=== PATIENT | female | born 1980 | race Caucasian/White ===

== ENCOUNTER 2023-03-03 10:20 | Inpatient (IN) | payer OTHER ==
--- OUTSIDE RECORDS SUMMARY | 2023-03-03 10:30 | XMS REPORT | Continuity of Care Document ---
:1980 Author Organization [facility] t Address [address] [place] [address] Care Team Providers Name Role Phone Tucker Pandey Primary Care Physician JEMIMA LUDWIG Attending Clinician Unavailable ANDREW GELLER Attending Clinician Unavailable TUCKER ARAMBULA Attending Clinician Unavailable Tucker Pandey Attending Clinician Shruthi Wise MD Attending Clinician Meme Vanegas MD Attending Clinician MEME VANEGAS Attending Clinician Unavailable José Manuel Hendrickson MD Attending Clinician Doctor Unassigned, Brooten Attending Clinician Unavailable Emilie GUADALUPE, Chuck Attending Clinician Lovely Hodgson RN Attending Clinician YE HU Attending Clinician Unavailable Shilpa Banerjee Attending Clinician Bigg Dodd DO Attending Clinician Chris Pierre MD Attending Clinician Fritz GUADALUPE, Ye Attending Clinician She GUADALUPE, Tati Attending Clinician OCHOA BRADFORD Attending Clinician Unavailable DOROTA SAWYER Attending Clinician Unavailable Dawson GIFT WRAPPER, Cece Weber Attending Clinician Unavailable Lab, Ang - Db Attending Clinician Unavailable Nam Duncan MD Attending Clinician Karoline Tariq RN Attending Clinician Unavailable CANDACE WALSH Attending Clinician Unavailable Dee GUADALUPE, Gary Machado Attending Clinician Candace Walsh DO Attending Clinician Panfilo Russ MD Attending Clinician Ketty Beltran Attending Clinician Kiel Almanzar MD Attending Clinician [phone] KIEL ALMANZAR Attending Clinician Unavailable Maria De Jesus BURDENSWMichelle Attending Clinician Unavailable JYOTI FRAZIER Attending Clinician Unavailable Andrew Geller DO Attending Clinician JOSÉ MANUEL HENDRICKSON Attending Clinician Unavailable Jemima Ludwig MD Attending Clinician Vls-Lab Attending Clinician Unavailable Sarah Santacruz MD Attending Clinician Unavailable CHYNA RAMIRES Attending Clinician Unavailable Chyna Ramires MD Attending Clinician SHERIE MAY Attending Clinician Unavailable Rohit Pastor MD Attending Clinician ROHIT PASTOR Attending Clinician Unavailable Shital Naranjo Attending Clinician Ashish Butts MD Attending Clinician Shira Woods RN Attending Clinician Unavailable [facility] Attending Clinician Unavailable Estelle Rubio MD Attending Clinician ESTELLE RUBIO Attending Clinician Unavailable JEMIMA LUDWIG Admitting Clinician Unavailable ANDREW GELLER Admitting Clinician Unavailable PERSON, CHRIS Admitting Clinician Unavailable Person Chris GUADALUPE Admitting Clinician PANFILO RUSS Admitting Clinician Unavailable Panfilo Russ MD Admitting Clinician KIEL ALMANZAR Admitting Clinician Unavailable Jemima Ludwig MD Admitting Clinician Ashish Butts MD Admitting Clinician Payers Payer Name Policy Type Policy Number Effective Date Expiration Date Jeannette [employer] [id number] 2020 HEALTH 00:00:00 [place]ICAID OF [place] [id number] 2017 00:00:00 Problems Condition Condition Condition Status Onset Resolution Last Treating Co mments Source Name Details Category Date Date Treatment Clinician Date Hematemesi Hematemesi Disease Active U nivers s s 3-19 ity of 00:00: [place] 00 Medical Branch Abdominal Abdominal Disease Active Overview: Univers pain, pain, 3-19 Formattin ity of unspecifie unspecifie 00:00: g of this [place] d d 00 note Medical abdominal abdominal might be Br anch location location different from the original. Added automatic ally from request for surgery [id number] Anxiety Anxiety Disease Active Univers 2-17 ity of 00:00: [place] 00 Medical Branch Excoriatio Excoriatio Disease Active U eulalioers n n 2-17 ity of (skin-pick [place] ing[place] 00 Medical disorder disorder Branch Acute Acute Disease Active Univers hypoxemic hypoxemic 7-18 ity of respirator respirator [place] y failure y failure 00 Medi wanda due to due to Branch COVID-19 COVID-19 Abdominal Abdominal Disease Active Overview: Univers pain, pain, 7- Formattin ity of epigastric epigastric 00:00: g of this [place] 00 note Medical might be Branch different from the original. Added automatic ally from request for surgery [id number] Nausea and Nausea and Disease Active Overview : Univers vomiting, vomiting, 7- Formattin i ty of intractabi intractabi 00:00: g of this [place] lity of lity of 00 note Medical vomiting vomiting might be Bran ch not not different specified, specified, from the unspecifie unspecifie original. d vomiting d vomiting Added type type automatic ally from request for surgery [id number] History of History of Disease Active Overview : Univers bleeding bleeding 7-28 Formattin ity of peptic peptic 00:00: g of this [place] ulcer ulcer 00 note Medical might be Branch different from the original. Added automatic ally from request for surgery [id number] Duodenal Duodenal Disease Active Overview: Un evon ulcer ulcer 9-10 Formattin ity of 00:00: g of this [place] 00 note Medical might be Branch different from the original. Added automatic ally from request for surgery [id number] Upper GI Upper GI Disease Active Unive rs bleed bleed 6-07 ity of 00:00: [place] 00 Medical Branch Acute Acute Disease Active Univers upper GI upper GI 6-07 ity of bleed bleed 00:00: [place] 00 Medical Branch Allergies, Adverse Reactions, Alerts Allergy Allergy Status Severity Reaction(s) Onset Inactive Treating Comm ents Source Name Type Date Date Clinician TYLENOL- DRUG Active Anxiety 2021-10 Univers CODEINE 0-14 ity of #2 00:00: [place] 00 Medical Branch Tylenol- Propensi Active Rash 2021-10 Univer s Codeine ty to 0-14 ity of #2 adverse 00:00: [place] reaction 00 Medical s Branch NO KNOWN Drug Active Univers ALLERGIE Class ity of S [place] [facility] Social History Social Habit Start Date Stop Date Quantity Comments Source History SDOH Social Unive rsity of [facility] Med ical Together Branch History SDOH Social Unive rsity of [facility] Medical Branch History SDOH Social Unive rsity of [facility] Medical Membership Branch History SDNV Social Unive rsity of [facility] Medical Meetings Branch History of tobacco Cigarette Smoker University of use [place] [facility] Alcohol intake 2023-01-16 2023-01-16 Lifetime University of 00:00:00 00:00:00 non-drinker [place] Medical (finding) Branch History SDOH 2022-12-31 2022-12-31 3 University o f Alcohol Frequency 00:00:00 00:00:00 [place] M edical Branch History SDOH 2022-12-312022-12-31 1 University o f Alcohol Std Drinks 00:00:00 00:00:00 [place] [facility] History SDOH 2022-12-31 2022-12-31 1 University o f Alcohol Binge 00:00:00 00:00:00 [place] Medic al Branch History SDOH Social 2022-12-31 2022-12-31 5 Unive rsity of Connections Phone 00:00:00 00:00:00 [facility] [place] [facility] edical Branch History SDOH Social 2022-12-31 2022-12-31 8 Unive rsity of Connections Living 00:00:00 00:00:00 [place] [facility] History SDOH 2022-12-31 2022-12-31 1 University o f Physical Activity 00:00:00 [facility]00[facility] History SDNV 2022-12-31 2022-12-31 3 University o f Physical Activity 00:00:00 00:00[facility]00 [facility] History SDOH 2022-12-31 2022-12-31 5 University o f Financial 00:00:00 00:00:00 [place] [facility] History SDOH Food 2022-12-31 2022-12-31 1 Univers ity of Worry 00:00:00 00:00:00 [place] [facility] History SDOH Food 2022-12-31 2022-12-31 1 Univers ity of Scarcity 00:00:00 00:00:00 [place] [facility] History SDOH 2022-12-31 2022-12-31 2 University o f Transport Med 00:00:00 00:00:00 [place] Medic al Branch History SDNV 2022-12-31 2022-12-31 2 University o f Transport Non-Med 00:00:00 00:00:00 [facility] Branch Exposure to 2022-12-20 2022-12-30 Not sure University of SARS-CoV-2 (event) 00:00:00 17:15:00 [facility] [place] [facility] Cigarettes smoked 2022-12-30 2022-12-30 Univers ity of current (pack per 00:00:00 00:00:00 [facility] day) - Reported Branch Cigarette 2022-12-30 2022-12-30 University of pack-years 00:00:00 00:00:00 [facility] [place] [facility] Tobacco Comment 2022-12-30 2022-12-30 Smokes a pack a Univ ersity of 00:00:00 00:00:00 day per pt, [facility] [place] [facility] Tobacco use and 2022-12-30 2022-12-30 Smokeless Universit y of exposure 00:00:00 00:00:00 tobacco non-user [facility] Sex Assigned At [birth year] Universit y of 00:00:00 00:00:00 [facility] [place] [facility] Smoking Status Start Date Stop Date Source Smokes tobacco daily 2022-12-30 00:00:00 Univers ity [facility] Medications Ordered Filled Start Stop Current Ordering Indication Dosage Frequency Signature Comments Components Source Medication Medication Date Date Medication? Clinician (SIG) Name Name docusate Yes [id number] 100mg Take 1 Un evon (COLACE) 5-19 capsule by ity o f 100 mg 00:00: mouth in [place] capsule 00 the Medical morning. Branch docusate Yes [id number] 100mg Take 1 Un evon (COLACE) 5-17 capsule by ity o f 100 mg 00:00: mouth in [place] capsule 00 the Medical morning. Branch docusate 0 3- No [id number] 100mg Take 1 U nivers (COLACE) 5-17 05-19 capsule by ity of 100 mg 00:00: 00:00 mouth in [place] capsule 00 :00 the Medical morning. Branch ondansetron Yes [id number] 4mg Take 1 Univers 4 mg tablet 4-12 tablet by ity of 00:00: mouth [place] 00 every 12 Medical (twelve) Branch hours. ondansetron 2022-0 Yes [id number] 4mg Take 1 Univers 4 mg tablet 4-12 tablet by ity of 00:00: mouth [place] 00 every 12 Medical (twelve) Branch hours. ondansetron 2022-0 Yes [id number] 4mg Take 1 Univers 4 mg tablet 4-12 tablet by ity of 00:00: mouth [place] 00 every 12 Medical (twelve) Branch hours. ketoconazol Yes [id number] Apply to Univers e 2 % 4-05 area(s) ity of shampoo 00:00: once daily [place] 00 as needed Medical for Branch Itching. triamcinolo Yes [id number] Apply to Univers ne 4-05 area(s) 2 ity of acetonide 00:00: (two) [place] 0.1 % cream 00 times Medical daily. Branch ketoconazol 2023-0 Yes [id number] Apply to Univers e 2 % 4-05 area(s) ity of shampoo 00:00: once daily [place] 00 as needed Medical for Branch Itching. triamcinolo 2023-0 Yes [id number] Apply to Univers ne 4-05 area(s) 2 ity of acetonide 00:00: (two) [place] 0.1 % cream 00 times Medical daily. Branch ketoconazol 2023-0 Yes [id number] Apply to Univers e 2 % 4-05 area(s) ity of shampoo 00:00: once [place] 00 as needed Medical for Branch Itching. triamcinolo 2023-0 Yes [id number] Apply to Univers ne 4-05 area(s) 2 ity of acetonide 00:00: (two) [place] 0.1 % cream 00 times Medical daily. Branch ketoconazol 3-0 Yes [id number] Apply to Univers e 2 % 4-05 area(s) ity of shampoo 00:00: once daily [place] 00 as needed Medical for Branch Itching. triamcinolo 2023-0 Yes [id number] Apply to Univers ne 4-05 area(s) 2 ity of acetonide 00:00: (two) [place] 0.1 % cream 00 times Medical daily. Branch ketoconazol 2023-0 Yes [id number] Apply to Univers e 2 % 4-05 area(s) ity of shampoo 00:00: once daily [place] 00 as needed Medical for Branch Itching. triamcinolo 2023-0 Yes [id number] Apply to Univers ne 4-05 area(s) 2 ity of acetonide 00:00: (two) [place] 0.1 % cream 00 times Medical daily. Branch ketoconazol 2023-0 Yes [id number] Apply to Univers e 2 % 4-05 area(s) ity of shampoo 00:00: once daily [place] 00 as needed Medical for Branch Itching. triamcinolo 2023-0 Yes [id number] Apply to Univers ne 4-05 area(s) 2 ity of acetonide 00:00: (two) [place] 0.1 % cream 00 times Medical daily. Branch ketoconazol 2023-0 Yes [id number] Apply to Univers e 2 % 4-05 area(s) ity of shampoo 00:00: once daily [place] 00 as needed Medical for Branch Itching. triamcinolo 2023-0 Yes [id number] Apply to Univers ne 4-05 area(s) 2 ity of acetonide 00:00: (two) [place] 0.1 % cream 00 times Medical daily. Branch ketoconazol 2023-0 Yes [id number] Apply to Univers e 2 % 4-05 area(s) ity of shampoo 00:00: once daily [place] 00 as needed Medical for Branch Itching. triamcinolo 2023-0 Yes [id number] Apply to Univers ne 4-05 area(s) 2 ity of acetonide 00:00: (two) [place] 0.1 % cream 00 times Medical daily. Branch ondansetron 2023-0 Yes [id number] 4mg Take 1 Univers 4 mg tablet 3-31 tablet by ity of 00:00: mouth [place] 00 every 12 Medical (twelve) Branch hours. ondansetron 2023-0 Yes [id number] 4mg Take 1 Univers 4 mg tablet 3-31 tablet by ity of 00:00: mouth [place] 00 every 12 Medical (twelve) Branch hours. ondansetron 2023-0 Yes [id number] 4mg Take 1 Univers 4 mg tablet 3-31 tablet by ity of 00:00: mouth [place] 00 every 12 Medical (twelve) Branch hours. ondansetron 2023-0 Yes [id number] 4mg Take 1 Univers 4 mg tablet 3-31 tablet by ity of 00:00: mouth [place] 00 every 12 Medical (twelve) Branch hours. ondansetron 2023-0 Yes [id number] 4mg Take 1 Univers 4 mg tablet 3-31 tablet by ity of 00:00: mouth [place] 00 every 12 Medical (twelve) Branch hours. ondansetron 2023-0 2023- No [id number] 4mg Take 1 Univers 4 mg tablet 3-31 04-07 tablet by it y of 00:00: 00:00 mouth [place] 00 :00 every 12 Medical (twelve) Branch hours. ondansetron 2023-0 2022- No [id number] 4mg Take 1 Univers 4 mg tablet 01-1107 tablet by it y of 00:00: 00:00 mouth [place] 00 :00 every 12 Medical (twelve) Branch hours. clindamycin 2022-0 Yes Topical, Un evon (CLEOCIN T) 01-03 BID, First it y of 1 % topical 01:00: dose on [place] solution Sat01/02/23 at Branch 1999, Until Discontinu ed, Routine fluocinolon 2022-0 Yes Topical, Un evon e (SYNALAR) 01-03 BID, First it y of 0.01 % 01:00: dose on [place] solution Sat Medical 01/02/23 at Branch 1999, Until Discontinu ed, Routine traMADoL 0 Yes 50mg 50 mg, Univers (ULTRAM) 01-02 Oral, ity of tablet 50 18:13: Q6HPRN, [place] mg 01 Starting Medical on Sat01/02/23 at 1313, Until Discontinu ed, Routine, Pain (scale 4-6) aspirin/steve 2022-0 2022- No Take by Un evon icylamide/c 01-02 mouth 2 ity of affeine (BC 15:08: 00:00 (two) [place] HEADACHE 28 :00 times Medical POWDER daily. Branch ORAL) polyethylen 0 Yes 17g 17 g, Unive rs e glycol 01-02 Oral, ity of 3350 powder 14:00: DAILY, [place] 17 g 00 First dose Medical on Sat01/02/23 at 0900, Until Discontinu ed, Routine polyethylen 2022-0 Yes 17g 17 g, Unive rs e glycol 01-02 Oral, ity of 3350 powder 14:00: DAILY, [place] 17 g 00 First dose Medical on Sat01/02/23 at 0900, Until Discontinu ed, Routine alum-mag 2022-0 Yes 30mL 30 mL, Univers hydroxide-s 01-02 Oral, BID, it y of imeth 13:15: First dose [place] (MAALOX 00 (after Medical PLUS / last Branch MAG-AL modificati PLUS) on) on Sat 200-200-20 01/02/23 at mg/5 mL 0815, suspension Until 30 mL Discontinu ed, Routine alum-mag 2022-0 Yes 30mL 30 mL, Univers hydroxide-s 01-02 Oral, BID, it y of imeth 13:15: First dose [place] (MAALOX 00 (after Medical PLUS / last Branch MAG-AL modificati PLUS) on) on Sat 200-200-20 01/02/23 at mg/5 mL 0815, suspension Until 30 mL Discontinu ed, Routine KCL 3-0 2023- No 40meq 40 mEq, Univers (KLOR-CON 01-0222 Oral, ity of M20) tablet 13:15: 12:47 ONCE, 1 [place] 40 mEq 00 :00 dose, On Sat Branch 01/02/23 at 0815, Routine aspirin/steve 2022-0 Yes Take by Uni vers icylamide/c 01-02 mouth 2 ity o f affeine (BC 09:16: (two) [place] HEADACHE 18 times Medical POWDER daily. Branch ORAL) alum-mag 0 202- No 30mL 30 mL, Univer s hydroxide-s 01-02-22 Oral, ity of imeth 08:53: 13:10 Q6HPRN, [place] (MAALOX 04 :22 Starting Medical PLUS / on Sat Branch MAG-AL 01/02/23 at PLUS) 0353, 200-200-20 Until Sat mg/5 mL 01/02/23 at suspension 0810, 30 mL Routine, Indigestio n pantoprazol 2022-0 Yes 40mg 40 mg, Univ ers e - Oral, BID, ity of (PROTONIX) 01:00: First dose [place] EC tablet 00 on Sat Medical 40 mg 01/01/23 at Branch 1999, Until Discontinu ed, Routine pantoprazol 3-0 Yes 40mg 40 mg, Univ ers e -22 Oral, BID, ity of (PROTONIX) 01:00: First dose [place] EC tablet 00 on Sat Medical 40 mg 01/01/23 at Branch 1999, Until Discontinu ed, Routine ondansetron 2022-0 Yes [id number] 4mg Take 1 Univers 4 mg tablet 01-02 tablet by ity of 00:00: mouth [place] 00 every 12 Medical (twelve) Branch hours. ondansetron 2023-0 Yes [id number] 4mg Take 1 Univers 4 mg tablet 3-22 tablet by ity of 00:00: mouth [place] 00 every 12 Medical (twelve) Branch hours. pantoprazol 2023-0 Yes [id number] 40mg Take 1 Univers e 40 mg EC 3-22 tablet by ity of tablet 00:00: mouth in [place] 00 the Medical morning Branch and 1 tablet in the evening. ondansetron 2023-0 Yes [id number] 4mg Take 1 Univers 4 mg tablet 3-22 tablet by ity of 00:00: mouth [place] 00 every 12 Medical (twelve) Branch hours. pantoprazol 2023-0 Yes [id number] 40mg Take 1 Univers e 40 mg EC 3-22 tablet by ity of tablet 00:00: mouth in [place] 00 the Medical morning Branch and 1 tablet in the evening. ondansetron 2023-0 Yes [id number] 4mg Take 1 Univers 4 mg tablet 3-22 tablet by ity of 00:00: mouth [place] 00 every 12 Medical (twelve) Branch hours. pantoprazol 2023-0 Yes [id number] 40mg Take 1 Univers e 40 mg EC 3-22 tablet by ity of tablet 00:00: mouth in [place] 00 the Medical morning Branch and 1 tablet in the evening. ondansetron 2023-0 Yes [id number] 4mg Take 1 Univers 4 mg tablet 3-22 tablet by ity of 00:00: mouth [place] 00 every 12 Medical (twelve) Branch hours. pantoprazol 2023-0 Yes [id number] 40mg Take 1 Univers e 40 mg EC 3-22 tablet by ity of tablet 00:00: mouth in [place] 00 the Medical morning Branch and 1 tablet in the evening. pantoprazol 2023-0 Yes [id number] 40mg Take 1 Univers e 40 mg EC 3-22 tablet by ity of tablet 00:00: mouth in [place] 00 the Medical morning Branch and 1 tablet in the evening. pantoprazol 2023-0 Yes [id number] 40mg Take 1 Univers e 40 mg EC 3-22 tablet by ity of tablet 00:00: mouth in [place] 00 the Medical morning Branch and 1 tablet in the evening. pantoprazol 2023-0 Yes [id number] 40mg Take 1 Univers e 40 mg EC 3-22 tablet by ity of tablet 00:00: mouth in [place] 00 the Medical morning Branch and 1 tablet in the evening. pantoprazol 2023-0 Yes [id number] 40mg Take 1 Univers e 40 mg EC 3-22 tablet by ity of tablet 00:00: mouth in [place] 00 the Medical morning Branch and 1 tablet in the evening. pantoprazol 2023-0 Yes [id number] 40mg Take 1 Univers e 40 mg EC 3-22 tablet by ity of tablet 00:00: mouth in [place] 00 the Medical morning Branch and 1 tablet in the evening. pantoprazol 2023-0 Yes [id number] 40mg Take 1 Univers e 40 mg EC 3-22 tablet by ity of tablet 00:00: mouth in [place] 00 the Medical morning Branch and 1 tablet in the evening. pantoprazol 2023-0 Yes [id number] 40mg Take 1 Univers e 40 mg EC 3-22 tablet by ity of tablet 00:00: mouth in [place] 00 the Medical morning Branch and 1 tablet in the evening. pantoprazol 2023-0 Yes [id number] 40mg Take 1 Univers e 40 mg EC 3-22 tablet by ity of tablet 00:00: mouth in [place] 00 the Medical morning Branch and 1 tablet in the evening. pantoprazol 3-0 Yes [id number] 40mg Take 1 Univers e 40 mg EC 3-22 tablet by ity of tablet 00:00: mouth in [place] 00 the Medical morning Branch and 1 tablet in the evening. pantoprazol 3-0 Yes [id number] 40mg Take 1 Univers e 40 mg EC 3-22 tablet by ity of tablet 00:00: mouth in [place] 00 the Medical morning Branch and 1 tablet in the evening. pantoprazol 2023-0 Yes [id number] 40mg Take 1 Univers e 40 mg EC 3-22 tablet by ity of tablet 00:00: mouth in [place] 00 the Medical morning Branch and 1 tablet in the evening. pantoprazol 3-0 Yes [id number] 40mg Take 1 Univers e 40 mg EC 3-22 tablet by ity of tablet 00:00: mouth in [place] 00 the Medical morning Branch and 1 tablet in the evening. ondansetron 3-0 2022- No [id number] 4mg Take 1 Univers 4 mg tablet 3-22 03-31 tablet by it y of 00:00: 00:00 mouth [place] 00 :00 every 12 Medical (twelve) Branch hours. ondansetron 2022- No [id number] 4mg Take 1 Univers 4 mg tablet 01-02 tablet by it y of 00:00: 00:00 mouth [place] 00 :00 every 12 Medical (twelve) Branch hours. ondansetron 2022- No [id number] 4mg Take 1 Univers 4 mg tablet 01-02 tablet by it y of 00:00: 00:00 mouth [place] 00 :00 every 12 Medical (twelve) Branch hours. morpHINE (2 2022- No 4mg 4 mg, Slow Univers mg/mL) 01-01 IV Push, ity of injection 4 18:51: 12:30 Q4HPRN, [place] mg 08 :00 Starting Medical on Sat Branch 01/01/23 at 1351, Until Sat01/02/23 at 0730, Routine, Breakthrou gh pain calcium 2022- No 2g 2 g, IV Univer s gluconate 2 01-01 Infusion, it y of g in NaCl 11:45: 12:03 at 200 [place] 100 mL 00 :00 mL/hr Medical (ISO-OSM) Administer Bran ch RTU IV over 30 infusion 2 Minutes, g ONCE, 1 dose, On Sat01/01/23 at 0645, Routine acetaminoph 2022- No 743mg 743 mg, IV Univers en ADULT 01-01 Infusion, ity o f ([facility]) 03:00: 19:31 at 297.2 [place] injection 00 :00 mL/hr Medical 743 mg Administer Branch over 15 Minutes, Q8H, 3 doses, First dose on Sat12/31/22 at 2200, Last dose on Sat01/01/23 at 1400, Routine
Indicatio n: Non-periop erative Patient&lt ;br>Approv ed by: Per Policy (NPO Status) pantoprazol 2022- No 40mg 40 mg, Uni vers e 01-01 Slow IV ity of (PROTONIX) 01:00: 22:07 Push, [place] injection 00 :32 Q12H, Medical 40 mg First dose Branch on Sat12/31/22 at 2000, Until Discontinu ed nicotine Yes 1{patch 1 Patch, Un evon (NICODERM) 3-20 } Topical, ity o f 7 mg/24 hr 21:00: Administer [place] patch 1 00 over 24 Medical Patch Hours, Branch Q24H, First dose on Sat12/31/22 at 1600, Until Discontinu ed, Routine nicotine 2022-0 Yes 1{patch 1 Patch, Un evon (NICODERM) 3-20 } Topical, ity o f 7 mg/24 hr 21:00: Administer [place] patch 1 00 over 24 Medical Patch Hours, Branch Q24H, First dose on Sat12/31/22 at 1600, Until Discontinu ed, Routine HYDROcodone 2022-0 Yes 1{tbl} 1 tablet, Univers -acetaminop 3-20 Oral, ity of hen (NORCO 16:49: Q6HPRN, [place] 5) 5-325 mg 43 Starting Medi wanda tablet 1 on Sat Branch tablet 12/31/22 at 1149, Until Discontinu ed, Routine, Pain (scale 4-6) HYDROcodone 2022-0 Yes 1{tbl} 1 tablet, Univers -acetaminop 3-20 Oral, ity of hen (NORCO 16:49: Q6HPRN, [place] 5) 5-325 mg 43 Starting Medi wanda tablet 1 on Sat Branch tablet 12/31/22 at 1149, Until Discontinu ed, Routine, Pain (scale 4-6) lactated 2022- No 1000mL at 42 Unive rs ringers IV 12-31-21 mL/hr, ity of infusion 15:30: 22:03 1,000 mL, [place] 1,000 mL 00 :36 IV Medical Infusion, Branch CONTINUOUS , Starting on Sat12/31/22 at 1030, Until Sat01/01/23 at 1703, Routine calcium 2022-2022- No 2g 2 g, IV Univer s gluconate 2 12-31 Infusion, it y of g in NaCl 12:00: 16:25 at 200 [place] 100 mL 00 :00 mL/hr Medical (ISO-OSM) Administer Bran ch RTU IV over 30 infusion 2 Minutes, g ONCE, 1 dose, On Sat12/31/22 at 0700, Routine morpHINE (2 2022-2022- No 4mg 4 mg, Slow Univers mg/mL) 12-31 IV Push, ity of injection 4 11:08: 18:51 Q4HPRN, [place] mg 04 :43 Starting Medical on Sat Branch 12/31/22 at 0608, Until Sat01/01/23 at 1351, Routine, Breakthrou gh pain potassium 2022- No 20mmol 20 mmol, U nivers phosphate 12-31 IV ity of 20 mmol in 07:15: 13:24 Piggyback, [place] NaCl 0.9% 00 :00 ONCE, 1 Medical (NS) 250 mL dose, On Bran ch piggyback Sat12/31/22 at 0215, 250 mL magnesium 2022- No 2g 2 g, IV Univ ers sulfate in 12-31 Piggyback, it y of water 2 07:15: 08:43 Administer [place] gram/50 mL 00 :00 over 60 Medica l (4 %) Minutes, Branch infusion 2 ONCE, 1 g dose, On Sat12/31/22 at 0215, Routine lactated 2022- No 1000mL at 100 Univ ers ringers IV 12-31 mL/hr, ity of infusion 04:15: 15:17 1,000 mL, [place] 1,000 mL 00 :50 IV Medical Infusion, Branch CONTINUOUS , Starting on [place] 12/30/22 at 2315, Until Sat12/31/22 at 1017, Routine morpHINE (2 2022- No 2mg 2 mg, Slow Univers mg/mL) 12-31 IV Push, ity of injection 2 03:59: 11:09 Q4HPRN, [place] mg 50 :30 Starting Medical on [place] Branch 12/30/22 at 2259, Until Sat12/31/22 at 0609, Routine, Breakthrou gh pain acetaminoph 2022- No 749mg 749 mg, IV Univers en ADULT 12-31 Infusion, ity o f (OFIRMEV) 03:59: 19:50 at 299.6 [place] injection 13 :46 mL/hr Medical 749 mg Administer Branch over 15 Minutes, Q8HPRN, Starting on [place] 12/30/22 at 2259, Until Sat12/31/22 at 1450, Routine, Pain (scale 1-3)
In dication: Non-periop erative Patient
Approved by: Per Policy (NPO Status) ondansetron 2022-0 Yes 4mg 4 mg, Slow [facility] (ZOFRAN 3-20 IV Push, ity of (PF)) 03:57: Q6HPRN, [place] injection 4 56 Starting Medi wanda mg on [place] [facility] 12/30/22 at 2257, Until Discontinu ed, Routine, Nausea and Vomiting (N/V) ondansetron 2022-0 Yes 4mg 4 mg, Slow [facility] (ZOFRAN 3-20 IV Push, ity of (PF)) 03:57: Q6HPRN, [place] injection 4 56 Starting Medi wanda mg on [facility] 12/30/22 at 2257, Until Discontinu ed, Routine, Nausea and Vomiting (N/V) FENTanyl PF 2022- No 50ug 50 mcg, Un evon (SUBLIMAZE 12-31 Slow IV ity o f (PF)) 02:36: 02:37 Push, [place] injection 00 :00 ONCE, 1 Medical 50 mcg dose, On Branch [place] 12/30/22 at 2145, Routine iopamidol 2022-2022- No [id number] 100mL 100 mL, Univers (ISOVUE 12-31 Intravenou ity o f 370-500 mL) 02:15: 02:15 s, ONCE, 1 [place] injection 00 :00 dose, On Medica l 100 mL [facility] 12/30/22 at 2115, Routine pantoprazol 2022- No 8mg/h 8 mg/hr U nivers e 12-30 (50 ity of (PROTONIX) 23:45: 04:02 mL/hr), IV [place] 80 mg in 00 :21 Infusion, Medica l NaCl 0.9% CONTINUOUS Bran ch (NS) 500 mL , Starting infusion on [place] 12/30/22 at 1845 pantoprazol 2022-2022- No 80mg 80 mg, IV Univers e 12-30 Push, ity of (PROTONIX) 23:30: 23:32 ONCE, 1 [place] 80 mg in 00 :00 dose, On Medical NaCl 0.9% [place] (NS) 20 mL 12/30/22 at syringe 1830, Administer over 2 Minutes, 20 mL NaCl 0.9% No 1000mL at 999 Uni vers (NS) bolus 12-30-20 mL/hr, ity of infusion 23:15: 01:23 1,000 mL, [place] 1,000 mL 00 :00 IV Medical Infusion, Branch ONCE, 1 dose, On 12/30/22 at 1815, JESSICA ondansetron No 4mg 4 mg, Slow [facility] (ZOFRAN 12-30 IV Push, ity of (PF)) 22:45: 23:07 ONCE, 1 [place] injection 4 00 :00 dose, On Medi wanda mg [place] [facility] 12/30/22 at 1745, JESSICA morpHINE (4 2022- No 4mg 4 mg, Slow [facility] mg/mL) 12-30 IV Push, ity of injection 4 22:45: 23:07 ONCE, 1 [place] mg 00 :[place] dose, On Medical [place] [facility] 12/30/22 at 1745, STAT pantoprazol Yes [id number] 40mg Take 1 [facility] e 40 mg EC 2-24 tablet by ity of tablet 00:00: mouth [place] 00 every Medical morning Branch and evening. pantoprazol Yes [id number] 40mg Take 1 [facility] e 40 mg EC 2-24 tablet by ity of tablet 00:00: mouth [place] 00 every Medical morning Branch and evening. pantoprazol 2022- No [id number] 40mg Take 1 [facility] e 40 mg EC 2-24 -22 tablet by ity of tablet 00:00: 00:00 mouth [place] 00 :00 every Medical morning Branch and evening. doxepin 50 Yes [id number] 50mg Take 1 [facility] mg capsule 2-17 capsule by ity of 00:00: mouth at [place] 00 bedtime. Medical Branch pantoprazol Yes [id number] 40mg Take 1 [facility] e 40 mg EC 2-17 tablet by ity of tablet 00:00: mouth [place] 00 every Medical morning Branch and evening. docusate Yes [id number] 100mg Take 1 Un evon (COLACE) 2-17 capsule by ity o f 100 mg 00:00: mouth in [place] capsule 00 the Medical morning. Branch doxepin 50 Yes [id number] 50mg Take 1 [facility] mg capsule 2-17 capsule by ity of 00:00: mouth at [place] 00 bedtime. Medical Branch pantoprazol Yes [id number] 40mg Take 1 [facility] e 40 mg EC 2-17 tablet by ity of tablet 00:00: mouth [place] 00 every Medical morning Branch and evening. docusate 2022-0 Yes [id number] 100mg Take 1 Un evon (COLACE) 2-17 capsule by ity o f 100 mg 00:00: mouth in [place] capsule 00 the Medical morning. Branch doxepin 50 Yes [id number] 50mg Take 1 [facility] mg capsule 2-17 capsule by ity of 00:00: mouth at [place] 00 bedtime. Medical Branch docusate Yes [id number] 100mg Take 1 Un evon (COLACE) 2-17 capsule by ity o f 100 mg 00:00: mouth in [place] capsule 00 the Medical morning. Branch doxepin 50 Yes [id number] 50mg Take 1 [facility] mg capsule 2-17 capsule by ity of 00:00: mouth at [place] 00 bedtime. Medical Branch docusate Yes [id number] 100mg Take 1 Un evon (COLACE) 2-17 capsule by ity o f 100 mg 00:00: mouth in [place] capsule 00 the Medical morning. Branch doxepin 50 Yes [id number] 50mg Take 1 [facility] mg capsule 2-17 capsule by ity of 00:00: mouth at [place] 00 bedtime. Medical Branch docusate Yes [id number] 100mg Take 1 Un evon (COLACE) 2-17 capsule by ity o f 100 mg 00:00: mouth in [place] capsule 00 the Medical morning. Branch doxepin 50 0 Yes [id number] 50mg Take 1 [facility] mg capsule 2-17 capsule by ity of 00:00: mouth at [place] 00 bedtime. Medical Branch docusate Yes [id number] 100mg Take 1 Un evon (COLACE) 2-17 capsule by ity o f 100 mg 00:00: mouth in [place] capsule 00 the Medical morning. Branch doxepin 50 0 Yes [id number] 50mg Take 1 [facility] mg capsule 2-17 capsule by ity of 00:00: mouth at [place] 00 bedtime. Medical Branch docusate 0 Yes [id number] 100mg Take 1 Un evon (COLACE) 2-17 capsule by ity o f 100 mg 00:00: mouth in [place] capsule 00 the Medical morning. Branch doxepin 50 0 Yes [id number] 50mg Take 1 [facility] mg capsule 2-17 capsule by ity of 00:00: mouth at [place] 00 bedtime. Medical Branch docusate Yes [id number] 100mg Take 1 Un evon (COLACE) 2-17 capsule by ity o f 100 mg 00:00: mouth in [place] capsule 00 the Medical morning. Branch doxepin 50 0 Yes [id number] 50mg Take 1 [facility] mg capsule 2-17 capsule by ity of 00:00: mouth at [place] 00 bedtime. Medical Branch docusate 0 Yes [id number] 100mg Take 1 Un evon (COLACE) 2-17 capsule by ity o f 100 mg 00:00: mouth in [place] capsule 00 the Medical morning. Branch doxepin 50 0 Yes [id number] 50mg Take 1 [facility] mg capsule 2-17 capsule by ity of 00:00: mouth at [place] 00 bedtime. Medical Branch docusate Yes [id number] 100mg Take 1 Un evon (COLACE) 2-17 capsule by ity o f 100 mg 00:00: mouth in [place] capsule 00 the Medical morning. Branch doxepin 50 0 Yes [id number] 50mg Take 1 [facility] mg capsule 2-17 capsule by ity of 00:00: mouth at [place] 00 bedtime. Medical Branch docusate 0 Yes [id number] 100mg Take 1 Un evon (COLACE) 2-17 capsule by ity o f 100 mg 00:00: mouth in [place] capsule 00 the Medical morning. Branch doxepin 50 0 Yes [id number] 50mg Take 1 [facility] mg capsule 2-17 capsule by ity of 00:00: mouth at [place] 00 bedtime. Medical Branch docusate 0 Yes [id number] 100mg Take 1 Un evon (COLACE) 2-17 capsule by ity o f 100 mg 00:00: mouth in [place] capsule 00 the Medical morning. Branch doxepin 50 0 Yes [id number] 50mg Take 1 [facility] mg capsule 2-17 capsule by ity of 00:00: mouth at [place] 00 bedtime. Medical Branch docusate Yes [id number] 100mg Take 1 Un evon (COLACE) 2-17 capsule by ity o f 100 mg 00:00: mouth in [place] capsule 00 the Medical morning. Branch doxepin 50 0 Yes [id number] 50mg Take 1 [facility] mg capsule 2-17 capsule by ity of 00:00: mouth at [place] 00 bedtime. Medical Branch docusate Yes [id number] 100mg Take 1 Un evon (COLACE) 2-17 capsule by ity o f 100 mg 00:00: mouth in [place] capsule 00 the Medical morning. Branch doxepin 50 Yes [id number] 50mg Take 1 [facility] mg capsule 2-17 capsule by ity of 00:00: mouth at [place] 00 bedtime. Medical Branch docusate Yes [id number] 100mg Take 1 Un evon (COLACE) 2-17 capsule by ity o f 100 mg 00:00: mouth in [place] capsule the Medical morning. Branch doxepin 50 0 Yes [id number] 50mg Take 1 [facility] mg capsule 2-17 capsule by ity of 00:00: mouth at [place] 00 bedtime. Medical Branch docusate Yes [id number] 100mg Take 1 Un evon (COLACE) 2-17 capsule by ity o f 100 mg 00:00: mouth in [place] capsule 00 the Medical morning. Branch doxepin 50 0 Yes [id number] 50mg Take 1 [facility] mg capsule 2-17 capsule by ity of 00:00: mouth at [place] 00 bedtime. Medical Branch docusate 0 Yes [id number] 100mg Take 1 Un evon (COLACE) 2-17 capsule by ity o f 100 mg 00:00: mouth in [place] capsule 00 the Medical morning. Branch doxepin 50 0 Yes [id number] 50mg Take 1 [facility] mg capsule 2-17 capsule by ity of 00:00: mouth at [place] 00 bedtime. Medical Branch docusate Yes [id number] 100mg Take 1 Un evon (COLACE) 2-17 capsule by ity o f 100 mg 00:00: mouth in [place] capsule 00 the Medical morning. Branch doxepin 50 0 Yes [id number] 50mg Take 1 [facility] mg capsule 2-17 capsule by ity of 00:00: mouth at [place] [address] bedtime. Medical Branch doxepin 50 0 Yes [id number] 50mg Take 1 [facility] mg capsule 2-17 capsule by ity of 00:00: mouth at [place] 00 bedtime. Medical Branch docusate 2022- No [id number] 100mg Take 1 U nivers (COLACE) 2-17 05-17 capsule by ity of 100 mg 00:00: 00:00 mouth in [place] capsule 00 :00 the Medical morning. Branch clindamycin 2022- No [id number] 300mg Take 1 [facility] 300 mg 11-30-25 capsule by ity of capsule 00:00: 05:59 mouth in [place] 00 :00 the Medical morning Branch and 1 capsule at noon and 1 capsule in the evening. Do all this for 7 days. clindamycin 2022-2022- No [id number] 300mg Take 1 [facility] 300 mg 11-30-25 capsule by ity of capsule 00:00: 05:59 mouth in [place] 00 :00 the Medical morning Branch and 1 capsule at noon and 1 capsule in the evening. Do all this for 7 days. clindamycin 2022- No [id number] 300mg Take 1 [facility] 300 mg 11-30-25 capsule by ity of capsule 00:00: 05:59 mouth in [place] 00 :00 the Medical morning Branch and 1 capsule at noon and 1 capsule in the evening. Do all this for 7 days. pantoprazol 2022- No [id number] 40mg Take 1 [facility] e 40 mg EC 11-30 tablet by ity of tablet 00:00: 00:00 mouth [place] 00 :00 every Medical morning Branch and evening. naproxen 2021-10 Yes [id number] TAKE 1 [facility] 500 mg TABLET BY ity of tablet 00:00: MOUTH [place] 00 TWICE Medical DAILY Branch NEEDED FOR MODERATE PAIN. Use sparingly due to side effects ergocalcife 2021-10 Yes [id number] Take 1 [facility] rol, 2-29 capsule by ity of vitamin d2, 00:00: mouth [place] 1,250 mcg 00 weekly. Medical (50,000 Branch unit) capsule naproxen 2021-10 Yes [id number] TAKE 1 [facility] 500 mg 2-29 [id number] TABLET BY ity of tablet 00:00: MOUTH [place] 00 TWICE Medical DAILY Branch NEEDED FOR MODERATE PAIN. Use sparingly due to side effects ergocalcife 2021-10 Yes [id number] Take 1 [facility] rol, 2-29 capsule by ity of vitamin d2, 00:00: mouth [place] 1,250 mcg 00 weekly. Medical (50,000 Branch unit) capsule naproxen 2021-10 Yes [id number] TAKE 1 [facility] 500 mg 2-29 [id number] TABLET BY ity of tablet 00:00: MOUTH [place] 00 TWICE Medical DAILY Branch NEEDED FOR MODERATE PAIN. Use sparingly due to side effects ergocalcife 2021-10 Yes [id number] Take 1 [facility] rol, 2-29 capsule by ity of vitamin d2, 00:00: mouth [place] 1,250 mcg 00 weekly. Medical (50,000 Branch unit) capsule naproxen 2021-10 Yes [id number] TAKE 1 [facility] 500 mg 2-29 [id number] TABLET BY ity of tablet 00:00: MOUTH [place] 00 TWICE Medical DAILY Branch NEEDED FOR MODERATE PAIN. Use sparingly due to side effects ergocalcife 2021-10 Yes [id number] Take 1 [facility] rol, 2-29 capsule by ity of vitamin d2, 00:00: mouth [place] 1,250 mcg 00 weekly. Medical (50,000 Branch unit) capsule ergocalcife 2021-10 Yes [id number] Take 1 [facility] rol, 2-29 capsule by ity of vitamin d2, 00:00: mouth [place] 1,250 mcg 00 weekly. Medical (50,000 Branch unit) capsule ergocalcife 2021-10 Yes [id number] Take 1 [facility] rol, 2-29 capsule by ity of vitamin d2, 00:00: mouth [place] 1,250 mcg 00 weekly. Medical (50,000 Branch unit) capsule ergocalcife 2021-10 Yes [id number] Take 1 [facility] rol, 2-29 capsule by ity of vitamin d2, 00:00: mouth [place] 1,250 mcg 00 weekly. Medical (50,000 Branch unit) capsule ergocalcife 2021-10 Yes [id number] Take 1 [facility] rol, 2-29 capsule by ity of vitamin d2, 00:00: mouth [place] 1,250 mcg 00 weekly. Medical (50,000 Branch unit) capsule ergocalcife 2021-10 Yes [id number] Take 1 [facility] rol, 2-29 capsule by ity of vitamin d2, 00:00: mouth [place] 1,250 mcg 00 weekly. Medical (50,000 Branch unit) capsule ergocalcife 2021-10 Yes [id number] Take 1 [facility] rol, 2-29 capsule by ity of vitamin d2, 00:00: mouth [place] 1,250 mcg 00 weekly. Medical (50,000 Branch unit) capsule ergocalcife 2021-10 Yes [id number] Take 1 [facility] rol, 2-29 capsule by ity of vitamin d2, 00:00: mouth [place] 1,250 mcg 00 weekly. Medical (50,000 Branch unit) capsule ergocalcife 2021-10 Yes [id number] Take 1 [facility] rol, 2-29 capsule by ity of vitamin d2, 00:00: mouth [place] 1,250 mcg 00 weekly. Medical (50,000 Branch unit) capsule ergocalcife 2021-10 Yes [id number] Take 1 [facility] rol, 2-29 capsule by ity of vitamin d2, 00:00: mouth [place] 1,250 mcg 00 weekly. Medical (50,000 Branch unit) capsule ergocalcife 2021-10 Yes [id number] Take 1 [facility] rol, 2-29 capsule by ity of vitamin d2, 00:00: mouth [place] 1,250 mcg 00 weekly. Medical (50,000 Branch unit) capsule ergocalcife 2021-10 Yes [id number] Take 1 [facility] rol, 2-29 capsule by ity of vitamin d2, 00:00: mouth [place] 1,250 mcg 00 weekly. Medical (50,000 Branch unit) capsule ergocalcife 2021-10 Yes [id number] Take 1 [facility] rol, 2-29 capsule by ity of vitamin d2, 00:00: mouth [place] 1,250 mcg 00 weekly. Medical (50,000 Branch unit) capsule ergocalcife 2021-10 Yes [id number] Take 1 [facility] rol, 2-29 capsule by ity of vitamin d2, 00:00: mouth [place] 1,250 mcg 00 weekly. Medical (50,000 Branch unit) capsule ergocalcife 2021-10 Yes [id number] Take 1 [facility] rol, 2-29 capsule by ity of vitamin d2, 00:00: mouth [place] 1,250 mcg 00 weekly. Medical (50,000 Branch unit) capsule ergocalcife 2021-10 Yes [id number] Take 1 [facility] rol, 2-29 capsule by ity of vitamin d2, 00:00: mouth [place] 1,250 mcg 00 weekly. Medical (50,000 Branch unit) capsule ergocalcife 2021-10 Yes [id number] Take 1 [facility] rol, 2-29 capsule by ity of vitamin d2, 00:00: mouth [place] 1,250 mcg 00 weekly. Medical (50,000 Branch unit) capsule ergocalcife 2021-10 Yes [id number] Take 1 [facility] rol, 2-29 capsule by ity of vitamin d2, 00:00: mouth [place] 1,250 mcg 00 weekly. Medical (50,000 Branch unit) capsule naproxen 2021-10- No [id number] TAKE 1 [facility] 500 mg 2-29 - [id number] TABLET BY ity of tablet 00:00: 00:00 MOUTH [place] 00 :00 TWICE Medical DAILY Branch NEEDED FOR MODERATE PAIN. Use sparingly due to side effects naproxen 2021-10- No [id number] TAKE 1 [facility] 500 mg 2-29 - [id number] TABLET BY ity of tablet 00:00: 00:00 MOUTH [place] 00 :00 TWICE Medical DAILY Branch NEEDED FOR MODERATE PAIN. Use sparingly due to side effects ergocalcife 2021-10 Yes [id number] Take 1 [facility] rol, 2-28 capsule by ity of vitamin d2, 00:00: mouth [place] 1,250 mcg 00 weekly. Medical (50,000 Branch unit) capsule ergocalcife 2021-10- No [id number] Take 1 [facility] rol, 2-28 12-29 capsule by ity of vitamin d2, 00:00: 00:00 mouth [place] 1,250 mcg 00 :00 weekly. Medical (50,000 Branch unit) capsule naproxen 2021-10 Yes [id number] TAKE 1 [facility] 500 mg 10-22 [id number] TABLET BY ity of tablet 00:00: MOUTH [place] 00 TWICE Medical DAILY Branch NEEDED FOR MODERATE PAIN. Use sparingly due to side effects naproxen 2021-10 Yes [id number] TAKE 1 [facility] 500 mg 10-22 [id number] TABLET BY ity of tablet 00:00: MOUTH [place] 00 TWICE Medical DAILY Branch NEEDED FOR MODERATE PAIN. Use sparingly due to side effects naproxen 2021-10 Yes [id number] TAKE 1 [facility] 500 mg 10-22 [id number] TABLET BY ity of tablet 00:00: MOUTH [place] 00 TWICE Medical DAILY Branch NEEDED FOR MODERATE PAIN. Use sparingly due to side effects naproxen 2021-10 Yes [id number] TAKE 1 [facility] 500 mg 10-22 [id number] TABLET BY ity of tablet 00:00: MOUTH [place] 00 TWICE Medical DAILY Branch NEEDED FOR MODERATE PAIN. Use sparingly due to side effects naproxen 2021-10- No [id number] TAKE 1 [facility] 500 mg 10-22 [id number] TABLET BY ity of tablet 00:00: 00:00 MOUTH [place] 00 :00 TWICE Medical DAILY Branch NEEDED FOR MODERATE PAIN. Use sparingly due to side effects polyethylen 2021-10 Yes [id number] 1{packe Take 1 [facility] e glycol 0-14 t} Packet by ity of 3350 17 00:00: mouth 2 [place] gram powder 00 (two) Medical times Branch daily as needed for Constipati on. pantoprazol 2021-10 Yes [id number] 40mg Take 1 [facility] e 40 mg EC 0-14 tablet by ity of tablet 00:00: mouth [place] 00 every Medical morning Branch and evening. docusate 2021-10 Yes [id number] 100mg Take 1 Un evon (COLACE) 0-14 capsule by ity o f 100 mg 00:00: mouth in [place] capsule 00 the Medical morning. Branch polyethylen 2021-10 Yes [id number] 1{packe Take 1 [facility] e glycol 0-14 t} Packet by ity of 3350 17 00:00: mouth 2 [place] gram powder 00 (two) Medical times Branch daily as needed for Constipati on. pantoprazol 2021-10 Yes [id number] 40mg Take 1 [facility] e 40 mg EC 0-14 tablet by ity of tablet 00:00: mouth [place] 00 every Medical morning Branch and evening. docusate 2021-10 Yes [id number] 100mg Take 1 Un evon (COLACE) 0-14 capsule by ity o f 100 mg 00:00: mouth in [place] capsule 00 the Medical morning. Branch polyethylen 2021-10 Yes [id number] 1{packe Take 1 [facility] e glycol 0-14 t} Packet by ity of 3350 17 00:00: mouth 2 [place] gram powder 00 (two) Medical times Branch daily as needed for Constipati on. pantoprazol 2021-10 Yes [id number] 40mg Take 1 [facility] e 40 mg EC 0-14 tablet by ity of tablet 00:00: mouth [place] 00 every Medical morning Branch and evening. docusate 2021-10 Yes [id number] 100mg Take 1 Un evon (COLACE) 0-14 capsule by ity o f 100 mg 00:00: mouth in [place] capsule 00 the Medical morning. Branch polyethylen 2021-10 Yes [id number] 1{packe Take 1 [facility] e glycol 0-14 t} Packet by ity of 3350 17 00:00: mouth 2 [place] gram powder 00 (two) Medical times Branch daily as needed for Constipati on. pantoprazol 2021-10 Yes [id number] 40mg Take 1 [facility] e 40 mg EC 0-14 tablet by ity of tablet 00:00: mouth [place] 00 every Medical morning Branch and evening. docusate 2021-10 Yes [id number] 100mg Take 1 Un evon (COLACE) 0-14 capsule by ity o f 100 mg 00:00: mouth in [place] capsule 00 the Medical morning. Branch polyethylen 2021-10 Yes [id number] 1{packe Take 1 [facility] e glycol 0-14 t} Packet by ity of 3350 17 00:00: mouth 2 [place] gram powder 00 (two) Medical times Branch daily as needed for Constipati on. pantoprazol 2021-10 Yes [id number] 40mg Take 1 [facility] e 40 mg EC 0-14 tablet by ity of tablet 00:00: mouth [place] 00 every Medical morning Branch and evening. docusate 2021-10 Yes [id number] 100mg Take 1 Un evon (COLACE) 0-14 capsule by ity o f 100 mg 00:00: mouth in [place] capsule 00 the Medical morning. Branch polyethylen 2021-10 Yes [id number] 1{packe Take 1 [facility] e glycol 0-14 t} Packet by ity of 3350 17 00:00: mouth 2 [place] gram powder 00 (two) Medical times Branch daily as needed for Constipati on. pantoprazol 2021-10 Yes [id number] 40mg Take 1 [facility] e 40 mg EC 0-14 tablet by ity of tablet 00:00: mouth [place] 00 every Medical morning Branch and evening. docusate 2021-10 Yes [id number] 100mg Take 1 Un evon (COLACE) 0-14 capsule by ity o f 100 mg 00:00: mouth in [place] capsule 00 the Medical morning. Branch polyethylen 2021-10 Yes [id number] 1{packe Take 1 [facility] e glycol 0-14 t} Packet by ity of 3350 17 00:00: mouth 2 [place] gram powder 00 (two) Medical times Branch daily as needed for Constipati on. pantoprazol 2021-10 Yes [id number] 40mg Take 1 [facility] e 40 mg EC 0-14 tablet by ity of tablet 00:00: mouth [place] 00 every Medical morning Branch and evening. docusate 2021-10 Yes [id number] 100mg Take 1 Un evon (COLACE) 0-14 capsule by ity o f 100 mg 00:00: mouth in [place] capsule 00 the Medical morning. Branch polyethylen 2021-10 Yes [id number] 1{packe Take 1 [facility] e glycol 0-14 t} Packet by ity of 3350 17 00:00: mouth 2 [place] gram powder 00 (two) Medical times Branch daily as needed for Constipati on. pantoprazol 2021-10 Yes [id number] 40mg Take 1 [facility] e 40 mg EC 0-14 tablet by ity of tablet 00:00: mouth [place] 00 every Medical morning Branch and evening. docusate 2021-10 Yes [id number] 100mg Take 1 Un evon (COLACE) 0-14 capsule by ity o f 100 mg 00:00: mouth in [place] capsule 00 the Medical morning. Branch polyethylen 2021-10 Yes [id number] 1{packe Take 1 [facility] e glycol 0-14 t} Packet by ity of 3350 17 00:00: mouth 2 [place] gram powder 00 (two) Medical times Branch daily as needed for Constipati on. pantoprazol 2021-10 Yes [id number] 40mg Take 1 [facility] e 40 mg EC 0-14 tablet by ity of tablet 00:00: mouth [place] 00 every Medical morning Branch and evening. docusate 2021-10 Yes [id number] 100mg Take 1 Un evon (COLACE) 0-14 capsule by ity o f 100 mg 00:00: mouth in [place] capsule 00 the Medical morning. Branch polyethylen 2021-10 Yes [id number] 1{packe Take 1 [facility] e glycol 0-14 t} Packet by ity of 3350 17 00:00: mouth 2 [place] gram powder 00 (two) Medical times Branch daily as needed for Constipati on. pantoprazol 2021-10 Yes [id number] 40mg Take 1 [facility] e 40 mg EC 0-14 tablet by ity of tablet 00:00: mouth [place] 00 every Medical morning Branch and evening. docusate 2021-10 Yes [id number] 100mg Take 1 Un evon (COLACE) 0-14 capsule by ity o f 100 mg 00:00: mouth in [place] capsule 00 the Medical morning. Branch polyethylen 2021-10 Yes [id number] 1{packe Take 1 [facility] e glycol 0-14 t} Packet by ity of 3350 17 00:00: mouth 2 [place] gram powder 00 (two) Medical times Branch daily as needed for Constipati on. polyethylen 2021-10 Yes [id number] 1{packe Take 1 [facility] e glycol 0-14 t} Packet by ity of 3350 17 00:00: mouth 2 [place] gram powder 00 (two) Medical times Branch daily as needed for Constipati on. polyethylen 2021-10 Yes [id number] 1{packe Take 1 [facility] e glycol 0-14 t} Packet by ity of 3350 17 00:00: mouth 2 [place] gram powder 00 (two) Medical times Branch daily as needed for Constipati on. polyethylen 2021-10 Yes [id number] 1{packe Take 1 [facility] e glycol 0-14 t} Packet by ity of 3350 17 00:00: mouth 2 [place] gram powder 00 (two) Medical times Branch daily as needed for Constipati on. polyethylen 2021-10 Yes [id number] 1{packe Take 1 [facility] e glycol 0-14 t} Packet by ity of 3350 17 00:00: mouth 2 [place] gram powder 00 (two) Medical times Branch daily as needed for Constipati on. polyethylen 2021-10 Yes [id number] 1{packe Take 1 [facility] e glycol 0-14 t} Packet by ity of 3350 17 00:00: mouth 2 [place] gram powder 00 (two) Medical times Branch daily as needed for Constipati on. polyethylen 2021-10 Yes [id number] 1{packe Take 1 [facility] e glycol 0-14 t} Packet by ity of 3350 17 00:00: mouth 2 [place] gram powder 00 (two) Medical times Branch daily as needed for Constipati on. polyethylen 2021-10 Yes [id number] 1{packe Take 1 [facility] e glycol 0-14 t} Packet by ity of 3350 17 00:00: mouth 2 [place] gram powder 00 (two) Medical times Branch daily as needed for Constipati on. polyethylen 2021-10 Yes [id number] 1{packe Take 1 [facility] e glycol 0-14 t} Packet by ity of 3350 17 00:00: mouth 2 [place] gram powder 00 (two) Medical times Branch daily as needed for Constipati on. polyethylen 2021-10 Yes [id number] 1{packe Take 1 [facility] e glycol 0-14 t} Packet by ity of 3350 17 00:00: mouth 2 [place] gram powder 00 (two) Medical times Branch daily as needed for Constipati on. polyethylen 2021-10 Yes [id number] 1{packe Take 1 [facility] e glycol 0-14 t} Packet by ity of 3350 17 00:00: mouth 2 [place] gram powder 00 (two) Medical times Branch daily as needed for Constipati on. polyethylen 2021-10 Yes [id number] 1{packe Take 1 [facility] e glycol 0-14 t} Packet by ity of 3350 17 00:00: mouth 2 [place] gram powder 00 (two) Medical times Branch daily as needed for Constipati on. polyethylen 2021-10 Yes [id number] 1{packe Take 1 [facility] e glycol 0-14 t} Packet by ity of 3350 17 00:00: mouth 2 [place] gram powder 00 (two) Medical times Branch daily as needed for Constipati on. polyethylen 2021-10 Yes [id number] 1{packe Take 1 [facility] e glycol 0-14 t} Packet by ity of 3350 17 00:00: mouth 2 [place] gram powder 00 (two) Medical times Branch daily as needed for Constipati on. polyethylen 2021-10 Yes [id number] 1{packe Take 1 [facility] e glycol 0-14 t} Packet by ity of 3350 17 00:00: mouth 2 [place] gram powder 00 (two) Medical times Branch daily as needed for Constipati on. polyethylen 2021-10 Yes [id number] 1{packe Take 1 [facility] e glycol 0-14 t} Packet by ity of 3350 17 00:00: mouth 2 [place] gram powder 00 (two) Medical times Branch daily as needed for Constipati on. polyethylen 2021-10 Yes [id number] 1{packe Take 1 [facility] e glycol 0-14 t} Packet by ity of 3350 17 00:00: mouth 2 [place] gram powder 00 (two) Medical times Branch daily as needed for Constipati on. polyethylen 2021-10 Yes [id number] 1{packe Take 1 [facility] e glycol 0-14 t} Packet by ity of 3350 17 00:00: mouth 2 [place] gram powder 00 (two) Medical times Branch daily as needed for Constipati on. polyethylen 2021-10 Yes [id number] 1{packe Take 1 [facility] e glycol 0-14 t} Packet by ity of 3350 17 00:00: mouth 2 [place] gram powder 00 (two) Medical times Branch daily as needed for Constipati on. polyethylen 2021-10 Yes [id number] 1{packe Take 1 [facility] e glycol 0-14 t} Packet by ity of 3350 17 00:00: mouth 2 [place] gram powder 00 (two) Medical times Branch daily as needed for Constipati on. pantoprazol 2021-10- No [id number] 40mg Take 1 [facility] e 40 mg EC 0-14 11-30 tablet by ity of tablet 00:00: 00:00 mouth [place] 00 :00 every Medical morning Branch and evening. docusate 2021-10- No [id number] 100mg Take 1 [facility] (COLACE) 0-14 11-30 capsule by ity of 100 mg 00:00: 00:00 mouth in [place] capsule 00 :00 the Medical morning. Branch pantoprazol 2021-10- No [id number] 40mg Take 1 [facility] e 40 mg EC 11-30 tablet by [facility]y of tablet 00:00: 00:00 mouth [place] 00 :00 every Medical morning Branch and evening. docusate 2021-10- No [id number] 100mg Take 1 [facility] (COLACE) 11-30 capsule by [facility] of 100 mg 00:00: 00:00 mouth in [place] capsule 00 :00 the Medical morning. Branch ERGOCALCIFE 2021-10 Yes [id number] TAKE 1 [facility] ROL, 0-09 CAPSULE BY ity of VITAMIN D2, 00:00: MOUTH [place] 1,250 mcg 00 WEEKLY Medical (50,000 Branch unit) capsule naproxen 2021-10 Yes [id number] TAKE 1 [facility] 500 mg 0-09 [id number] TABLET BY ity of tablet 00:00: MOUTH [place] 00 TWICE Medical DAILY Branch NEEDED FOR MODERATE PAIN. Use sparingly due to side effects ERGOCALCIFE 2021-10 Yes [id number] TAKE 1 [facility] ROL, 0-09 CAPSULE BY ity of VITAMIN D2, 00:00: MOUTH [place] 1,250 mcg 00 WEEKLY Medical (50,000 Branch unit) capsule naproxen 2021-10 Yes [id number] TAKE 1 [facility] 500 mg 0-09 [id number] TABLET BY [facility]y of tablet 00:00: MOUTH [place] 00 TWICE Medical DAILY Branch NEEDED FOR MODERATE PAIN. Use sparingly due to side effects ERGOCALCIFE 2021-10 Yes [id number] TAKE 1 [facility] ROL, 0-09 CAPSULE BY ity of VITAMIN D2, 00:00: MOUTH [place] 1,250 mcg 00 WEEKLY Medical (50,000 Branch unit) capsule naproxen 2021-10 Yes [id number] TAKE 1 [facility] 500 mg 0-09 [id number] TABLET BY ity of tablet 00:00: MOUTH [place] 00 TWICE Medical DAILY Branch NEEDED FOR MODERATE PAIN. Use sparingly due to side effects ERGOCALCIFE 2021-10 Yes [id number] TAKE 1 [facility] ROL, 0-09 CAPSULE BY ity of VITAMIN D2, 00:00: MOUTH [place] 1,250 mcg 00 WEEKLY Medical (50,000 Branch unit) capsule naproxen 2021-10 Yes [id number] TAKE 1 [facility] 500 mg 0-09 [id number] TABLET BY ity of tablet 00:00: MOUTH [place] 00 TWICE Medical DAILY Branch NEEDED FOR MODERATE PAIN. Use sparingly due to side effects ERGOCALCIFE 2021-10 Yes [id number] TAKE 1 [facility] ROL, 0-09 CAPSULE BY ity of VITAMIN D2, 00:00: MOUTH [place] 1,250 mcg 00 WEEKLY Medical (50,000 Branch unit) capsule naproxen 2021-10 Yes [id number] TAKE 1 [facility] 500 mg 0-09 [id number] TABLET BY ity of tablet 00:00: MOUTH [place] 00 TWICE Medical DAILY Branch NEEDED FOR MODERATE PAIN. Use sparingly due to side effects ERGOCALCIFE 2021-10 Yes [id number] TAKE 1 [facility] ROL, 0-09 CAPSULE BY ity of VITAMIN D2, 00:00: MOUTH [place] 1,250 mcg 00 WEEKLY Medical (50,000 Branch unit) capsule naproxen 2021-10 Yes [id number] TAKE 1 [facility] 500 mg 0-09 [id number] TABLET BY ity of tablet 00:00: MOUTH [place] 00 TWICE Medical DAILY Branch NEEDED FOR MODERATE PAIN. Use sparingly due to side effects ERGOCALCIFE 2021-10 Yes [id number] TAKE 1 [facility] ROL, 0-09 CAPSULE BY ity of VITAMIN D2, 00:00: MOUTH [place] 1,250 mcg 00 WEEKLY Medical (50,000 Branch unit) capsule ERGOCALCIFE 2021-10 Yes [id number] TAKE 1 [facility] ROL, 0-09 CAPSULE BY ity of VITAMIN D2, 00:00: MOUTH [place] 1,250 mcg 00 WEEKLY Medical (50,000 Branch unit) capsule ERGOCALCIFE 2021-10 Yes [id number] TAKE 1 [facility] ROL, 0-09 CAPSULE BY ity of VITAMIN D2, 00:00: MOUTH [place] 1,250 mcg 00 WEEKLY Medical (50,000 Branch unit) capsule ERGOCALCIFE 2021-10- No [id number] TAKE 1 [facility] ROL, 0-09 12-28 CAPSULE BY it[facility] of VITAMIN D2, 00:00: 00:00 MOUTH [place] 1,250 mcg 00 :00 WEEKLY Medical (50,000 Branch unit) capsule naproxen 2021-10- No [id number] TAKE 1 [facility] 500 mg 08-22 TABLET BY ity of tablet 00:00: 00:00 MOUTH [place] 00 :00 TWICE Medical DAILY Branch NEEDED FOR MODERATE PAIN. Use sparingly due to side effects SUCRALFATE 0 Yes [id number] 1g TAKE 1 [facility] 1 gram 9-16 TABLET BY [facility]y of tablet 00:00: MOUTH [place] 00 BEFORE Medical MEALS AND Branch AT BEDTIME SUCRALFATE 0 Yes [id number] 1g TAKE 1 [facility] 1 gram 9-16 TABLET BY ity of tablet 00:00: MOUTH [place] 00 BEFORE Medical MEALS AND Branch AT BEDTIME SUCRALFATE 0 Yes [id number] 1g TAKE 1 [facility] 1 gram 9-16 TABLET BY ity of tablet 00:00: MOUTH [place] 00 BEFORE Medical MEALS AND Branch AT BEDTIME SUCRALFATE 0 Yes [id number] 1g TAKE 1 [facility] 1 gram 9-16 TABLET BY ity of tablet 00:00: MOUTH [place] 00 BEFORE Medical MEALS AND Branch AT BEDTIME SUCRALFATE 0 Yes [id number] 1g TAKE 1 [facility] 1 gram 9-16 TABLET BY ity of tablet 00:00: MOUTH [place] 00 BEFORE Medical MEALS AND Branch AT BEDTIME SUCRALFATE 0 Yes [id number] 1g TAKE 1 [facility] 1 gram 9-16 TABLET BY ity of tablet 00:00: MOUTH [place] 00 BEFORE Medical MEALS AND Branch AT BEDTIME SUCRALFATE 0 Yes [id number] 1g TAKE 1 [facility] 1 gram 9-16 TABLET BY ity of tablet 00:00: MOUTH [place] 00 BEFORE Medical MEALS AND Branch AT BEDTIME SUCRALFATE 2021-0 Yes [id number] 1g TAKE 1 [facility] 1 gram 9-16 TABLET BY ity of tablet 00:00: MOUTH [place] 00 BEFORE Medical MEALS AND Branch AT BEDTIME SUCRALFATE 2021-0 Yes [id number] 1g TAKE 1 [facility] 1 gram 9-16 TABLET BY ity of tablet 00:00: MOUTH [place] 00 BEFORE Medical MEALS AND Branch AT BEDTIME SUCRALFATE 2021-0 Yes [id number] 1g TAKE 1 [facility] 1 gram 9-16 TABLET BY ity of tablet 00:00: MOUTH [place] 00 BEFORE Medical MEALS AND Branch AT BEDTIME SUCRALFATE 2021-0 Yes [id number] 1g TAKE 1 [facility] 1 gram 9-16 TABLET BY ity of tablet 00:00: MOUTH [place] 00 BEFORE Medical MEALS AND Branch AT BEDTIME SUCRALFATE 2021-0 Yes [id number] 1g TAKE 1 [facility] 1 gram 9-16 TABLET BY ity of tablet 00:00: MOUTH [place] 00 BEFORE Medical MEALS AND Branch AT BEDTIME SUCRALFATE 2021-0 3- No [id number] 1g TAKE 1 [facility] 1 gram 9-16 02-17 TABLET BY ity of tablet 00:00: 00:00 MOUTH [place] 00 :00 BEFORE Medical MEALS AND Branch AT BEDTIME SUCRALFATE 2021-0 2022- No [id number] 1g TAKE 1 [facility] 1 gram 9-16 02-17 TABLET BY ity of tablet 00:00: 00:00 MOUTH [place] 00 :00 BEFORE Medical MEALS AND Branch AT BEDTIME naproxen 2021-0 Yes [id number] TAKE 1 [facility] 500 mg 8-24 [id number] TABLET BY ity of tablet 00:00: MOUTH [place] 00 TWICE Medical DAILY Branch NEEDED FOR MODERATE PAIN. Use sparingly due to side effects naproxen 2021-0 Yes [id number] TAKE 1 [facility] 500 mg 8-24 [id number] TABLET BY ity of tablet 00:00: MOUTH [place] 00 TWICE Medical DAILY Branch NEEDED FOR MODERATE PAIN. Use sparingly due to side effects naproxen 2021-0 2021- No [id number] TAKE 1 [facility] 500 mg 8-24 10-09 [id number] TABLET BY ity of tablet 00:00: 00:00 MOUTH [place] 00 :00 TWICE Medical DAILY Branch NEEDED FOR MODERATE PAIN. Use sparingly due to side effects ergocalcife 2021-0 Yes [id number] Take 1 [facility] rol, 8-19 capsule by ity of vitamin d2, 00:00: mouth [place] (VITAMIN 00 weekly. Medical D2) 1,250 Branch mcg (50,000 unit) capsule sucralfate 2021-0 Yes [id number] 1g Take 1 [facility] 1 gram 8-19 tablet by ity of tablet 00:00: mouth [place] 00 before Medical meals and Branch at bedtime. ferrous 2021-0 Yes [id number] 324mg Take 1 [facility] vers sulfate 324 8-19 tablet by ity of mg (65 mg 00:00: mouth [place] iron) EC 00 daily with Medic al tablet breakfast. Branch ergocalcife 2022-0 Yes [id number] Take 1 [facility] rol, 8-19 capsule by ity of vitamin d2, 00:00: mouth [place] (VITAMIN 00 weekly. Medical D2) 1,250 Branch mcg (50,000 unit) capsule sucralfate 0 Yes [id number] 1g Take 1 [facility] 1 gram 8-19 tablet by ity of tablet 00:00: mouth [place] 00 before Medical meals and Branch at bedtime. ferrous 0 Yes [id number] 324mg Take 1 [facility] vers sulfate 324 8-19 tablet by ity of mg (65 mg 00:00: mouth [place] iron) EC 00 daily with Medic al tablet breakfast. Branch ergocalcife Yes [id number] Take 1 [facility] rol, 8-19 capsule by ity of vitamin d2, 00:00: mouth [place] (VITAMIN 00 weekly. Medical D2) 1,250 Branch mcg (50,000 unit) capsule ferrous Yes [id number] 324mg Take 1 [facility] vers sulfate 324 8-19 tablet by ity of mg (65 mg 00:00: mouth [place] iron) EC 00 daily with Medic al tablet breakfast. Branch ferrous Yes [id number] 324mg Take 1 [facility] vers sulfate 324 8-19 tablet by ity of mg (65 mg 00:00: mouth [place] iron) EC 00 daily with Medic al tablet breakfast. Branch ferrous 0 Yes [id number] 324mg Take 1 [facility] vers sulfate 324 8-19 tablet by ity of mg (65 mg 00:00: mouth [place] iron) EC 00 daily with Medic al tablet breakfast. Branch ferrous 0 Yes [id number] 324mg Take 1 [facility] vers sulfate 324 8-19 tablet by ity of mg (65 mg 00:00: mouth [place] iron) EC 00 daily with Medic al tablet breakfast. Branch ferrous 0 Yes [id number] 324mg Take 1 [facility] vers sulfate 324 8-19 tablet by ity of mg (65 mg 00:00: mouth [place] iron) EC 00 daily with Medic al tablet breakfast. Branch ferrous 2021-0 Yes [id number] 324mg Take 1 [facility] vers sulfate 324 8-19 tablet by ity of mg (65 mg 00:00: mouth [place] iron) EC 00 daily with Medic al tablet breakfast. Branch ferrous 2022-0 Yes [id number] 324mg Take 1 [facility] vers sulfate 324 8-19 tablet by ity of mg (65 mg 00:00: mouth [place] iron) EC 00 daily with Medic al tablet breakfast. Branch ferrous 2021-0 Yes [id number] 324mg Take 1 [facility] vers sulfate 324 8-19 tablet by ity of mg (65 mg 00:00: mouth [place] iron) EC 00 daily with Medic al tablet breakfast. Branch ferrous 2021-0 Yes [id number] 324mg Take 1 [facility] vers sulfate 324 8-19 tablet by ity of mg (65 mg 00:00: mouth [place] iron) EC 00 daily with Medic al tablet breakfast. Branch ferrous 0 Yes [id number] 324mg Take 1 [facility] vers sulfate 324 8-19 tablet by ity of mg (65 mg 00:00: mouth [place] iron) EC 00 daily with Medic al tablet breakfast. Branch ferrous 0 Yes [id number] 324mg Take 1 [facility] vers sulfate 324 8-19 tablet by ity of mg (65 mg 00:00: mouth [place] iron) EC 00 daily with Medic al tablet breakfast. Branch ferrous 2021-0 Yes [id number] 324mg Take 1 [facility] vers sulfate 324 8-19 tablet by ity of mg (65 mg 00:00: mouth [place] iron) EC 00 daily with Medic al tablet breakfast. Branch ferrous 2021-0 Yes [id number] 324mg Take 1 [facility] vers sulfate 324 8-19 tablet by ity of mg (65 mg 00:00: mouth [place] iron) EC 00 daily with Medic al tablet breakfast. Branch ferrous 2021-0 Yes [id number] 324mg Take 1 [facility] vers sulfate 324 8-19 tablet by ity of mg (65 mg 00:00: mouth [place] iron) EC 00 daily with Medic al tablet breakfast. Branch ferrous 2021-0 Yes [id number] 324mg Take 1 [facility] vers sulfate 324 8-19 tablet by ity of mg (65 mg 00:00: mouth [place] iron) EC 00 daily with Medic al tablet breakfast. Branch ferrous 2021-0 Yes [id number] 324mg Take 1 [facility] vers sulfate 324 8-19 tablet by ity of mg (65 mg 00:00: mouth [place] iron) EC 00 daily with Medic al tablet breakfast. Branch ferrous 2021-0 Yes [id number] 324mg Take 1 [facility] vers sulfate 324 8-19 tablet by ity of mg (65 mg 00:00: mouth [place] iron) EC 00 daily with Medic al tablet breakfast. Branch ferrous 2021-0 Yes [id number] 324mg Take 1 [facility] vers sulfate 324 8-19 tablet by ity of mg (65 mg 00:00: mouth [place] iron) EC 00 daily with Medic al tablet breakfast. Branch ferrous 2021-0 Yes [id number] 324mg Take 1 [facility] vers sulfate 324 8-19 tablet by ity of mg (65 mg 00:00: mouth [place] iron) EC 00 daily with Medic al tablet breakfast. Branch ferrous 2021-0 Yes [id number] 324mg Take 1 [facility] vers sulfate 324 8-19 tablet by ity of mg (65 mg 00:00: mouth [place] iron) EC 00 daily with Medic al tablet breakfast. Branch ferrous 0 Yes [id number] 324mg Take 1 [facility] vers sulfate 324 8-19 tablet by ity of mg (65 mg 00:00: mouth [place] iron) EC 00 daily with Medic al tablet breakfast. Branch ferrous 2021-0 Yes [id number] 324mg Take 1 [facility] vers sulfate 324 8-19 tablet by ity of mg (65 mg 00:00: mouth [place] iron) EC 00 daily with Medic al tablet breakfast. Branch ferrous 2021-0 Yes [id number] 324mg Take 1 [facility] vers sulfate 324 8-19 tablet by ity of mg (65 mg 00:00: mouth [place] iron) EC 00 daily with Medic al tablet breakfast. Branch ferrous 2021-0 Yes [id number] 324mg Take 1 [facility] vers sulfate 324 8-19 tablet by ity of mg (65 mg 00:00: mouth [place] iron) EC 00 daily with Medic al tablet breakfast. Branch ferrous 2021-0 Yes [id number] 324mg Take 1 [facility] vers sulfate 324 8-19 tablet by ity of mg (65 mg 00:00: mouth [place] iron) EC 00 daily with Medic al tablet breakfast. Branch ferrous 2021-0 Yes [id number] 324mg Take 1 [facility] vers sulfate 324 8-19 tablet by ity of mg (65 mg 00:00: mouth [place] iron) EC 00 daily with Medic al tablet breakfast. Branch ferrous 2021-0 Yes [id number] 324mg Take 1 [facility] vers sulfate 324 8-19 tablet by ity of mg (65 mg 00:00: mouth [place] iron) EC 00 daily with Medic al tablet breakfast. Branch ferrous Yes [id number] 324mg Take 1 [facility] vers sulfate 324 8-19 tablet by ity of mg (65 mg 00:00: mouth [place] iron) EC 00 daily with Medic al tablet breakfast. Branch ferrous Yes [id number] 324mg Take 1 [facility] vers sulfate 324 8-19 tablet by ity of mg (65 mg 00:00: mouth [place] iron) EC 00 daily with Medic al tablet breakfast. Branch ferrous Yes [id number] 324mg Take 1 [facility] vers sulfate 324 8-19 tablet by ity of mg (65 mg 00:00: mouth [place] iron) EC 00 daily with Medic al tablet breakfast. Branch ferrous Yes [id number] 324mg Take 1 [facility] vers sulfate 324 8-19 tablet by ity of mg (65 mg 00:00: mouth [place] iron) EC 00 daily with Medic al tablet breakfast. Branch ferrous Yes [id number] 324mg Take 1 [facility] vers sulfate 324 8-19 tablet by ity of mg (65 mg 00:00: mouth [place] iron) EC 00 daily with Medic al tablet breakfast. [place] ergocalcife 2021- No [id number] Take 1 [facility] rol, 8-19 10-09 capsule by ity of vitamin d2, 00:00: 00:00 mouth [place] (VITAMIN 00 :00 weekly. Medical D2) 1,250 Branch mcg (50,000 unit) capsule sucralfate 2021- No [id number] 1g Take 1 [facility] 1 gram 8-19 09-16 tablet by ity of tablet 00:00: 00:00 mouth [place] 00 :00 before Medical meals and Branch at bedtime. PANTOPRAZOL Yes [id number] TAKE 1 [facility] E 40 mg EC 8-18 TABLET BY ity of tablet 00:00: MOUTH IN [place] 00 THE Medical MORNING Branch AND IN THE EVENING PANTOPRAZOL Yes [id number] TAKE 1 [facility] E 40 mg EC 8-18 TABLET BY ity of tablet 00:00: MOUTH IN [place] 00 THE Medical MORNING Branch AND IN THE EVENING PANTOPRAZOL Yes [id number] TAKE 1 [facility] E 40 mg EC 8-18 TABLET BY ity of tablet 00:00: MOUTH IN [place] 00 THE Medical MORNING Branch AND IN THE EVENING PANTOPRAZOL Yes [id number] TAKE 1 [facility] E 40 mg EC 8-18 TABLET BY ity of tablet 00:00: MOUTH IN [place] 00 THE Medical MORNING Branch AND IN THE EVENING PANTOPRAZOL 2021- No [id number] TAKE 1 [facility] E 40 mg EC 8-18 10-14 TABLET BY ity of tablet 00:00: 00:00 MOUTH IN [place] 00 :00 THE Medical MORNING Branch AND IN THE EVENING PANTOPRAZOL 2021- No [id number] TAKE 1 [facility] E 40 mg EC 8-18 10-14 TABLET BY ity of tablet 00:00: 00:00 MOUTH IN [place] 00 :00 THE Medical MORNING Branch AND IN THE EVENING naproxen Yes [id number] TAKE 1 [facility] 500 mg 7-25 [id number] TABLET BY ity of tablet 00:00: MOUTH [place] 00 TWICE Medical DAILY Branch NEEDED FOR MODERATE PAIN. Use sparingly due to side effects naproxen 2021- No [id number] TAKE 1 [facility] 500 mg 7-25 08-24 [id number] TABLET BY ity of tablet 00:00: 00:00 MOUTH [place] 00 :00 TWICE Medical DAILY Branch NEEDED FOR MODERATE PAIN. Use sparingly due to side effects aspirin/steve 2021-0 Yes Take by [facility] vers icylamide/c 7-23 mouth 2 ity o f affeine (BC 13:34: (two) [place] HEADACHE 41 times Medical POWDER daily. Branch ORAL) aspirin/steve 2021-0 Yes Take by [facility] vers icylamide/c 7-23 mouth 2 ity o f affeine (BC 13:34: (two) [place] HEADACHE 41 times Medical POWDER daily. Branch ORAL) aspirin/steve 2021-0 Yes Take by [facility] vers icylamide/c 7-23 mouth 2 ity o f affeine (BC 13:34: (two) [place] HEADACHE 41 times Medical POWDER daily. Branch ORAL) aspirin/steve 2021-0 Yes Take by [facility] vers icylamide/c 7-23 mouth 2 ity o f affeine (BC 13:34: (two) [place] HEADACHE 41 times Medical POWDER daily. Branch ORAL) aspirin/steve 2021-0 Yes Take by [facility] vers icylamide/c 7-23 mouth 2 ity o f affeine (BC 13:34: (two) [place] HEADACHE 41 times Medical POWDER daily. Branch ORAL) aspirin/steve 2-0 Yes Take by [facility] vers icylamide/c 7-23 mouth 2 ity o f affeine (BC 13:34: (two) [place] HEADACHE 41 times Medical POWDER daily. Branch ORAL) aspirin/steve 2-0 Yes Take by [facility] vers icylamide/c 7-23 mouth 2 ity o f affeine (BC 13:34: (two) [place] HEADACHE 41 times Medical POWDER daily. Branch ORAL) aspirin/steve 2-0 Yes Take by [facility] vers icylamide/c 7-23 mouth 2 ity o f affeine (BC 13:34: (two) [place] HEADACHE 41 times Medical POWDER daily. Branch ORAL) aspirin/steve 2-0 Yes Take by [facility] vers icylamide/c 7-23 mouth 2 ity o f affeine (BC 13:34: (two) [place] HEADACHE 41 times Medical POWDER daily. Branch ORAL) aspirin/steve 2-0 Yes Take by [facility] vers icylamide/c 7-23 mouth 2 ity o f affeine (BC 13:34: (two) [place] HEADACHE 41 times Medical POWDER daily. Branch ORAL) aspirin/steve 2-0 Yes Take by [facility] vers icylamide/c 7-23 mouth 2 ity o f affeine (BC 13:34: (two) [place] HEADACHE 41 times Medical POWDER daily. Branch ORAL) aspirin/steve 2-0 Yes Take by [facility] vers icylamide/c 7-23 mouth 2 ity o f affeine (BC 13:34: (two) [place] HEADACHE 41 times Medical POWDER daily. Branch ORAL) aspirin/steve 2-0 Yes Take by [facility] vers icylamide/c 7-23 mouth 2 ity o f affeine (BC 13:34: (two) [place] HEADACHE 41 times Medical POWDER daily. Branch ORAL) aspirin/steve 2-0 Yes Take by [facility] vers icylamide/c 7-23 mouth 2 ity o f affeine (BC 13:34: (two) [place] HEADACHE 41 times Medical POWDER daily. Branch ORAL) aspirin/steve 2-0 Yes Take by [facility] vers icylamide/c 7-23 mouth 2 ity o f affeine (BC 13:34: (two) [place] HEADACHE 41 times Medical POWDER daily. Branch ORAL) aspirin/steve 2-0 Yes Take by [facility] vers icylamide/c 7-23 mouth 2 ity o f affeine (BC 13:34: (two) [place] HEADACHE 41 times Medical POWDER daily. Branch ORAL) aspirin/steve 2021-0 Yes Take by [facility] vers icylamide/c 05-05 mouth 2 ity o f affeine (BC 13:34: (two) [place] HEADACHE 41 times Medical POWDER daily. Branch ORAL) Immunizations Ordered Filled Immunization Date Status Comments [facility] e Immunization Name Name Remdesivir 2022-05-04 Completed [facility] of 00:00:00 [place] [facility] Remdesivir 2022-05-04 Completed [facility] of 00:00:00 [place] [facility] Remdesivir 2022-05-04 Completed [facility] of 00:00:00 [place] [facility] Remdesivir 2022-05-04 Completed [facility] 00:00:00 [place] [facility] Remdesivir 2022-05-04 Completed [facility] of 00:00:00 [place] [facility] Remdesivir 2022-05-04 Completed [facility] 00:00:00 [place] [facility] Remdesivir 2022-05-04 Completed [facility] 00:00:00 [place] [facility] Remdesivir 2022-05-04 Completed [facility] 00:00:00 [place] [facility] Remdesivir 2022-05-04 Completed [facility] 00:00:00 [place] [facility] Remdesivir 2022-05-04 Completed [facility] 00:00:00 [place] [facility] Remdesivir 2022-05-04 Completed [facility] 00:00:00 [place] [facility] Remdesivir 2022-05-04 Completed [facility] 00:00:00 [place] [facility] Remdesivir 2022-05-04 Completed [facility] 00:00:00 [place] [facility] Remdesivir 2022-05-04 Completed [facility] of 00:00:00 [place] [facility] Remdesivir 2022-05-04 Completed [facility] of 00:00:00 [place] [facility] Remdesivir 2022-05-04 Completed [facility] of 00:00:00 [place] [facility] Remdesivir 2022-05-04 Completed [facility] of 00:00:00 [place] [facility] Remdesivir 2022-05-04 Completed [facility] of 00:00:00 [place] [facility] Remdesivir 2022-05-04 Completed [facility] of 00:00:00 [place] [facility] Remdesivir 2022-05-04 Completed [facility] of 00:00:00 [place] [facility] Remdesivir 2022-05-04 Completed [facility] of 00:00:00 [place] [facility] Remdesivir 2022-05-04 Completed [facility] of 00:00:00 [place] [facility] Remdesivir 2022-05-04 Completed [facility] of 00:00:00 [place] [facility] Remdesivir 2022-05-04 Completed [facility] of 00:00:00 [place] [facility] Remdesivir 2022-05-04 Completed [facility] of 00:00:00 [place] [facility] Remdesivir 2022-05-04 Completed [facility] of 00:00:00 [place] [facility] Remdesivir 2022-05-04 Completed [facility] of 00:00:00 [place] [facility] Remdesivir 2022-05-04 Completed [facility] of 00:00:00 [place] [facility] Remdesivir 2022-05-04 Completed [facility] of 00:00:00 [place] [facility] Remdesivir 2022-05-04 Completed [facility] of 00:00:00 [place] [facility] Remdesivir 2022-05-04 Completed [facility] of 00:00:00 [place] [facility] Remdesivir 2022-05-04 Completed [facility] of 00:00:00 [place] [facility] Remdesivir 2022-05-04 Completed [facility] of 00:00:00 [place] [facility] Remdesivir 2022-05-04 Completed [facility] of 00:00:00 [place] [facility] Remdesivir 2022-05-03 Completed [facility] of 00:00:00 [place] [facility] Remdesivir 2022-05-03 Completed [facility] of 00:00:00 [place] [facility] Remdesivir 2022-05-03 Completed [facility] of 00:00:00 [place] [facility] Remdesivir 2022-05-03 Completed [facility] of 00:00:00 [place] [facility] Remdesivir 2022-05-03 Completed [facility] of 00:00:00 [place] [facility] Remdesivir 2022-05-03 Completed [facility] of 00:00:00 [place] [facility] Remdesivir 2022-05-03 Completed [facility] of 00:00:00 [place] [facility] Remdesivir 2022-05-03 Completed [facility] of 00:00:00 [place] [facility] Remdesivir 2022-05-03 Completed [facility] of 00:00:00 [place] [facility] Remdesivir 2022-05-03 Completed [facility] of 00:00:00 [place] [facility] Remdesivir 2022-05-03 Completed [facility] of 00:00:00 [place] [facility] Remdesivir 2022-05-03 Completed [facility] of 00:00:00 [place] [facility] Remdesivir 2022-05-03 Completed [facility] of 00:00:00 [place] [facility] Remdesivir 2022-05-03 Completed [facility] of 00:00:00 [place] [facility] Remdesivir 2022-05-03 Completed [facility] of 00:00:00 [place] [facility] Remdesivir 2022-05-03 Completed [facility] of 00:00:00 [place] [facility] Remdesivir 2022-05-03 Completed [facility] of 00:00:00 [place] [facility] Remdesivir 2022-05-03 Completed [facility] of 00:00:00 [place] [facility] Remdesivir 2022-05-03 Completed [facility] of 00:00:00 [place] [facility] Remdesivir 2022-05-03 Completed University of 00:00:00 [place] [facility] Remdesivir 2022-05-03 Completed University of 00:00:00 [place] [facility] Remdesivir 2022-05-03 Completed [facility] of 00:00:00 [place] [facility] Remdesivir 2022-05-03 Completed [facility] of 00:00:00 [place] [facility] Remdesivir 2022-05-03 Completed University of 00:00:00 [place] [facility] Remdesivir 2022-05-03 Completed University of 00:00:00 [place] [facility] Remdesivir 2022-05-03 Completed University of 00:00:00 [place] [facility] Remdesivir 2022-05-03 Completed University of 00:00:00 [place] [facility] Remdesivir 2022-05-03 Completed University of 00:00:00 [place] [facility] Remdesivir 2022-05-03 Completed [facility] of 00:00:00 [place] [facility] Remdesivir 2022-05-03 Completed [facility] of 00:00:00 [place] [facility] Remdesivir 2022-05-03 Completed [facility] of 00:00:00 [place] [facility] Remdesivir 2022-05-03 Completed [facility] of 00:00:00 [place] [facility] Remdesivir 2022-05-03 Completed [facility] of 00:00:00 [place] [facility] Remdesivir 2022-05-03 Completed [facility] of 00:00:00 [place] [facility] Remdesivir 2022-05-02 Completed [facility] of 00:00:00 [place] [facility] Remdesivir 2022-05-02 Completed [facility] of 00:00:00 [place] [facility] Remdesivir 2022-05-02 Completed [facility] of 00:00:00 [place] [facility] Remdesivir 2022-05-02 Completed [facility] of 00:00:00 [place] [facility] Remdesivir 2022-05-02 Completed [facility] of 00:00:00 [place] [facility] Remdesivir 2022-05-02 Completed [facility] of 00:00:00 [place] [facility] Remdesivir 2022-05-02 Completed [facility] of 00:00:00 [place] [facility] Remdesivir 2022-05-02 Completed [facility] of 00:00:00 [place] [facility] Remdesivir 2022-05-02 Completed University of 00:00:00 [place] [facility] Remdesivir 2022-05-02 Completed University of 00:00:00 [facility] Remdesivir 2022-05-02 Completed [facility] 00:00:00 [facility] Remdesivir 2022-05-02 Completed [facility] 00:00:00 [facility] Remdesivir 2022-05-02 Completed [facility] 00:00:00 [facility] Remdesivir 2022-05-02 Completed [facility] 00:00:00 [facility] Remdesivir 2022-05-02 Completed [facility] 00:00:00 [facility] Remdesivir 2022-05-02 Completed [facility] 00:00:00 [facility] Remdesivir 2022-05-02 Completed [facility] 00:00:00 [facility] Remdesivir 2022-05-02 Completed [facility] 00:00:00 [facility] Remdesivir 2022-05-02 Completed [facility] 00:00:00 [facility] Remdesivir 2022-05-02 Completed [facility] 00:00:00 [facility] Remdesivir 2022-05-02 Completed [facility] 00:00:00 [facility] Remdesivir 2022-05-02 Completed [facility] 00:00:00 [facility] Remdesivir 2022-05-02 Completed [facility] 00:00:00 [facility] Remdesivir 2022-05-02 Completed [facility] 00:00:00 [facility] Remdesivir 2022-05-02 Completed [facility] 00:00:00 [facility] Remdesivir 2022-05-02 Completed [facility] 00:00:00 [facility] Remdesivir 2022-05-02 Completed [facility] 00:00:00 [facility] Remdesivir 2022-05-02 Completed [facility] 00:00:00 [facility] Remdesivir 2022-05-02 Completed [facility] 00:00:00 [facility] Remdesivir 2022-05-02 Completed [facility] 00:00:00 [facility] Remdesivir 2022-05-02 Completed [facility] 00:00:00 [facility] Remdesivir 2022-05-02 Completed [facility] 00:00:00 [facility] Remdesivir 2022-05-02 Completed [facility] 00:00:00 [facility] Remdesivir 2022-05-02 Completed [facility] 00:00:00 [facility] Remdesivir 2022-05-01 Completed [facility] 00:00:00 [facility] Remdesivir 2022-05-01 Completed [facility] 00:00:00 [facility] Remdesivir 2022-05-01 Completed [facility] 00:00:00 [facility] Remdesivir 2022-05-01 Completed [facility] 00:00:00 [facility] Remdesivir 2022-05-01 Completed [facility] 00:00:00 [facility] Remdesivir 2022-05-01 Completed [facility] 00:00:00 [facility] Remdesivir 2022-05-01 Completed [facility] 00:00:00 [facility] Remdesivir 2022-05-01 Completed [facility] 00:00:00 [facility] Remdesivir 2022-05-01 Completed [facility] 00:00:00 [facility] Remdesivir 2022-05-01 Completed [facility] 00:00:00 [facility] Remdesivir 2022-05-01 Completed [facility] 00:00:00 [facility] Remdesivir 2022-05-01 Completed [facility] 00:00:00 [facility] Remdesivir 2022-05-01 Completed [facility] 00:00:00 [facility] Remdesivir 2022-05-01 Completed [facility] 00:00:00 [facility] Remdesivir 2022-05-01 Completed [facility] 00:00:00 [facility] Remdesivir 2022-05-01 Completed [facility] 00:00:00 [facility] Remdesivir 2022-05-01 Completed [facility] 00:00:00 [facility] Remdesivir 2022-05-01 Completed [facility] 00:00:00 [facility] Remdesivir 2022-05-01 Completed [facility] 00:00:00 [facility] Remdesivir 2022-05-01 Completed [facility] 00:00:00 [facility] Remdesivir 2022-05-01 Completed [facility] 00:00:00 [facility] Remdesivir 2022-05-01 Completed [facility] 00:00:00 [facility] Remdesivir 2022-05-01 Completed [facility] 00:00:00 [facility] Remdesivir 2022-05-01 Completed [facility] 00:00:00 [facility] Remdesivir 2022-05-01 Completed [facility] 00:00:00 [facility] Remdesivir 2022-05-01 Completed [facility] 00:00:00 [facility] Remdesivir 2022-05-01 Completed [facility] 00:00:00 [facility] Remdesivir 2022-05-01 Completed [facility] 00:00:00 [facility] Remdesivir 2022-05-01 Completed [facility] 00:00:00 [facility] Remdesivir 2022-05-01 Completed [facility] 00:00:00 [facility] Remdesivir 2022-05-01 Completed [facility] 00:00:00 [facility] Remdesivir 2022-05-01 Completed [facility] 00:00:00 [facility] Remdesivir 2022-05-01 Completed [facility] 00:00:00 [facility] Remdesivir 2022-05-01 Completed [facility] 00:00:00 [facility] Remdesivir 2022-04-30 Completed [facility] 00:00:00 [facility] Remdesivir 2022-04-30 Completed [facility] 00:00:00 [facility] Remdesivir 2022-04-30 Completed [facility] 00:00:00 [facility] Remdesivir 2022-04-30 Completed [facility] 00:00:00 [facility] Remdesivir 2022-04-30 Completed [facility] 00:00:00 [facility] Remdesivir 2022-04-30 Completed [facility] 00:00:00 [facility] Remdesivir 2022-04-30 Completed [facility] 00:00:00 [facility] Remdesivir 2022-04-30 Completed [facility] 00:00:00 [facility] Remdesivir 2022-04-30 Completed [facility] 00:00:00 [facility] Remdesivir 2022-04-30 Completed [facility] 00:00:00 [facility] Remdesivir 2022-04-30 Completed [facility] 00:00:00 [facility] Remdesivir 2022-04-30 Completed [facility] 00:00:00 [facility] Remdesivir 2022-04-30 Completed University of 00:00:00 [facility] Remdesivir 2022-04-30 Completed [facility] of 00:00:00 [facility] Remdesivir 2022-04-30 Completed [facility] 00:00:00 [facility] Remdesivir 2022-04-30 Completed [facility] of 00:00:00 [facility] Remdesivir 2022-04-30 Completed [facility] 00:00:00 [facility] Remdesivir 2022-04-30 Completed [facility] 00:00:00 [facility] Remdesivir 2022-04-30 Completed [facility] 00:00:00 [facility] Remdesivir 2022-04-30 Completed [facility] 00:00:00 [facility] Remdesivir 2022-04-30 Completed [facility] 00:00:00 [facility] Remdesivir 2022-04-30 Completed [facility] 00:00:00 [facility] Remdesivir 2022-04-30 Completed [facility] 00:00:00 [facility] Remdesivir 2022-04-30 Completed [facility] 00:00:00 [facility] Remdesivir 2022-04-30 Completed [facility] 00:00:00 [facility] Remdesivir 2022-04-30 Completed [facility] 00:00:00 [facility] Remdesivir 2022-04-30 Completed [facility] 00:00:00 [facility] Remdesivir 2022-04-30 Completed [facility] of 00:00:00 [facility] Remdesivir 2022-04-30 Completed [facility] of 00:00:00 [facility] Remdesivir 2022-04-30 Completed [facility] 00:00:00 [facility] Remdesivir 2022-04-30 Completed [facility] 00:00:00 [facility] Remdesivir 2022-04-30 Completed [facility] 00:00:00 [facility] Remdesivir 2022-04-30 Completed [facility] 00:00:00 [facility] Remdesivir 2022-04-30 Completed [facility] 00:00:00 [facility] Td 2016-02-26 Completed [facility] 00:00:00 [facility] Td 2016-02-26 Completed [facility] 00:00:00 [facility] Td 2016-02-26 Completed [facility] 00:00:00 [facility] Td 2016-02-26 Completed [facility] 00:00:00 [facility] Td 2016-02-26 Completed [facility] 00:00:00 [facility] Td 2016-02-26 Completed [facility] 00:00:00 [facility] Td 2016-02-26 Completed [facility] 00:00:00 [facility] Td 2016-02-26 Completed [facility] 00:00:00 [facility] Td 2016-02-26 Completed [facility] 00:00:00 [facility] Td 2016-02-26 Completed [facility] 00:00:00 [facility] Td 2016-02-26 Completed [facility] 00:00:00 [facility] TD, NOS 2016-02-26 Completed [facility] 00:00:00 [facility] TD, NOS 2016-02-26 Completed [facility] 00:00:00 [facility] TD, NOS 2016-02-26 Completed [facility] 00:00:00 [facility] TD, NOS 2016-02-26 Completed [facility] 00:00:00 [facility] TD, NOS 2016-02-26 Completed [facility] 00:00:00 [facility] TD, NOS 2016-02-26 Completed [facility] 00:00:00 [facility] TD, NOS 2016-02-26 Completed [facility] 00:00:00 [facility] TD, NOS 2016-02-26 Completed [facility] 00:00:00 [facility] TD, NOS 2016-02-26 Completed [facility] 00:00:00 [facility] TD, NOS 2016-02-26 Completed [facility] 00:00:00 [facility] TD, NOS 2016-02-26 Completed [facility] 00:00:00 [facility] TD, NOS 2016-02-26 Completed [facility] 00:00:00 [facility] TD, NOS 2016-02-26 Completed [facility] 00:00:00 [facility] TD, NOS 2016-02-26 Completed [facility] 00:00:00 [facility] TD, NOS 2016-02-26 Completed [facility] 00:00:00 [facility] TD, NOS 2016-02-26 Completed [facility] 00:00:00 [facility] TD, NOS 2016-02-26 Completed [facility] 00:00:00 [facility] TD, NOS 2016-02-26 Completed [facility] 00:00:00 [facility] TD, NOS 2016-02-26 Completed [facility] 00:00:00 [facility] TD, NOS 2016-02-26 Completed [facility] 00:00:00 [facility] TD, NOS 2016-02-26 Completed [facility] 00:00:00 [facility] TD, NOS 2016-02-26 Completed [facility] 00:00:00 [facility] TD, NOS 2016-02-26 Completed [facility] 00:00:00 [facility] Vital Signs Vital Name Observation Time Observation Value Comments Source Systolic blood 2023-01-02 16:25:00 123 mm[Hg] Univer sity of pressure [facility] Diastolic blood 2023-01-02 16:25:00 81 mm[Hg] Unive rsity of pressure [facility] Heart rate 2023-01-02 16:25:00 85 /min [facility] Body temperature 2023-01-02 16:25:00 37.17 [place] Univ ersity of [facility] Respiratory rate 2023-01-02 16:25:00 18 /min Univ ersity of [facility] Oxygen saturation in 2023-01-02 16:25:00 99 /min University of Arterial blood by [employer] Pulse oximetry Branch Body weight 2023-01-01 23:30:00 48.353 kg [facility] BMI 2023-01-01 23:30:00 18.30 kg/m2 [facility] Body height 2022-12-31 03:57:00 162.6 cm [facility] Systolic blood 2023-01-01 14:00:00 115 mm[Hg] Univer sity of pressure [facility] Diastolic blood 2023-01-01 14:00:00 75 mm[Hg] Unive rsity of pressure [facility] Heart rate 2023-01-01 14:00:00 72 /min Universi ty [facility] Respiratory rate 2023-01-01 14:00:00 12 /min Univ ersity of [facility] Oxygen saturation in 2023-01-01 14:00:00 95 /min University of Arterial blood by [employer] Pulse oximetry Branch Body temperature 2023-01-01 13:54:00 36.39 [place] Univ ersity of [facility] Body height 2022-12-31 03:57:00 162.6 cm [facility] Body weight 2022-12-31 03:57:00 49.5 kg [facility] BMI 2022-12-31 03:57:00 18.30 kg/m2 [facility] Systolic blood 2022-11-30 16:24:00 123 mm[Hg] Univer sity of pressure [facility] Diastolic blood 2022-11-30 16:24:00 85 mm[Hg] Unive rsity of pressure [facility] Heart rate 2022-11-30 16:24:00 93 /min [facility] Body height 2022-11-30 16:24:00 162.6 cm [facility] Body weight 2022-11-30 16:24:00 46.72 kg [facility] BMI 2022-11-30 16:24:00 17.68 kg/m2 [facility] Oxygen saturation in 2022-11-30 16:24:00 100 /min [facility] of Arterial blood by [facility] wanda Pulse oximetry Branch Systolic blood 2022-07-27 18:27:00 116 mm[Hg] Univer sity of pressure [facility] Diastolic blood 2022-07-27 18:27:00 83 mm[Hg] Unive rsity of pressure [facility] Heart rate 2022-07-27 18:27:00 107 /min [facility] Body height 2022-07-27 18:27:00 162.6 cm [facility] Body weight 2022-07-27 18:27:00 47.854 kg [facility] BMI 2022-07-27 18:27:00 18.11 kg/m2 [facility] Oxygen saturation in 2022-07-27 18:27:00 97 /min [facility] Arterial blood by [facility] Pulse [facility]xim[facility] Systolic blood 2022-06-01 16:42:00 114 mm[Hg] Univer sity of pressure [facility] Diastolic blood 2022-06-01 16:42:00 80 mm[Hg] Unive rsity of pressure [facility] Heart rate 2022-06-01 16:42:00 103 /min [facility] Body temperature 2022-06-01 16:42:00 36.61 [place] [facility] Body height 2022-06-01 16:42:00 162.6 cm [facility] Body weight 2022-06-01 16:42:00 51.03 kg [facility] BMI 2022-06-01 16:42:00 19.31 kg/m2 [facility] Oxygen saturation in 2022-06-01 16:42:00 97 /min [facility] Arterial blood by [facility] Pulse oximetry [place] Procedures Procedure Date / Time Performing Source Performed Clinician EXTERNAL PROVIDER RECORDS 2023-01-09 Doctor Shandra gongora of 05:01:00 Unassigned, No [facility] Name Branch PHOSPHORUS 2023-01-02 Anthony Leiva [facility] 08:59:00 [facility] MAGNESIUM 2023-01-02 Dasha Browne [facility] 08:59:00 [facility] HEPATIC FUNCTION PANEL ([id number]) 2023-01-02 Anand Mcfadden niversity of (ALB,T.PRO,BILI 08:59:00 [facility],BU/BC,ALT,AST,ALK PHOS) [place] BASIC METABOLIC PANEL (NA, K, CL, 2023-01-02 Ida Browne i [facility] CO2, GLUCOSE, BUN, CREATININE, CA) 08:59:00 [facility] CBC WITH DIFF 2023-01-02 Dasha Browne [facility] 08:59:00 [facility] PROTHROMBIN TIME / INR 2023-01-02 Vic Mcfaddenit y of 08:59:00 [facility] ACTIVATED PARTIAL THRMPLAS GARO 2023-01-02 Anand Mcfadden niversity of 08:59:00 [facility] FIBRINOGEN 2023-01-02 Yelena Mcfadden 08:59:00 [facility] PHOSPHORUS 2023-01-02 Yelena Mcfadden 08:59:00 [facility] MAGNESIUM 2023-01-02 Dasha Browne [facility] 08:59:00 [facility] HEPATIC FUNCTION PANEL ([id number]) 2023-01-02 Anand Mcfadden niversity of (ALB,T.PRO,BILI 08:59:00 [facility],BU/BC,ALT,AST,ALK PHOS) Branch BASIC METABOLIC PANEL (NA, K, CL, 2023-01-02 [facility] Ida [facility] of CO2, GLUCOSE, BUN, CREATININE, CA) 08:59:00 [facility] CBC WITH DIFF 2023-01-02 [facility] of 08:59:00 [facility] PROTHROMBIN TIME / INR 2023-01-02 [facility] 08:59[facility]00 [facility] ACTIVATED PARTIAL THRMPLAS GARO 2023-01-02 Anand Mcfadden niversity of 08:59:00 [facility] FIBRINOGEN 2023-01-02 Anthony Leiva [facility] of 08:59:00 [facility] CBC WITH DIFF 2023-01-01 [facility] 16:25:00 [facility] CBC WITH DIFF 2023-01-01 [facility] 16:25:00 [facility] EGD (ENDO) 2023-01-01 Person, [facility] of 14:53:20 [facility] EGD (ENDO) 2023-01-01 Person, [facility] of 14:53:20 [facility] ESOPHAGOGASTRODUODENOSCOPY 2023-01-01 [facility] rsity of 14:36:00 [facility] ESOPHAGOGASTRODUODENOSCOPY 2023-01-01 [facility] rsity of 14:36:00 [facility] PREPARE PACKED RBC 2023-01-01 [facility] of 12:28:32 F [facility] PREPARE PACKED RBC 2023-01-01 [facility] of 12:28:32 F [facility] TRANSFUSE PACKED RBC 2023-01-01 Anthony Leiva [facility] 11:25:00 [facility] TRANSFUSE PACKED RBC 2023-01-01 Anthony Leiva [facility] of 11:25:00 [facility] PREPARE PACKED RBC 2023-01-01 Anthony Leiva [facility] 11:08:21 [facility] PREPARE PACKED RBC 2023-01-01 [facility] 11:08:21 [facility] PHOSPHORUS 2023-01-01 [facility] 08:38:00 [facility] MAGNESIUM 2023-01-01 [facility] 08:38:00 [facility] HEPATIC FUNCTION PANEL ([id number]) 2023-01-01 Anthony Leiva niversity of (ALB,T.PRO,BILI 08:38:00 [facility],BU/BC,ALT,AST,ALK PHOS) [place] BASIC METABOLIC PANEL (NA, K, CL, 2023-01-01 [facility] CO2, GLUCOSE, BUN, CREATININE, CA) 08:38:00 [facility] CBC WITH DIFF 2023-01-01 [facility] 08:38:00 [facility] PROTHROMBIN TIME / INR 2023-01-01 [facility] 08:38[facility]00 [facility] ACTIVATED PARTIAL THRMPLAS GARO 2023-01-01 Anthony Leiva, niversity of 08:38:00 [facility] FIBRINOGEN 2023-01-01 [facility] 08:38:00 [facility] PHOSPHORUS 2023-01-01 [facility] 08:38:00 [facility] MAGNESIUM 2023-01-01 [facility] 08:38:00 [facility] HEPATIC FUNCTION PANEL ([id number]) 2023-01-01 Anthony Leiva U niversity of (ALB,T.PRO,BILI 08:38:00 [facility] T,BU/BC,ALT,AST,ALK PHOS) [place] BASIC METABOLIC PANEL (NA, K, CL, 2023-01-01 [facility] CO2, GLUCOSE, BUN, CREATININE, CA) 08:38:00 [facility] CBC WITH DIFF 2023-01-01 [facility] 08:38:00 [facility] PROTHROMBIN TIME / INR 2023-01-01 Vci Mcfaddenit y of 08:38:00 [facility] ACTIVATED PARTIAL THRMPLAS GARO 2023-01-01 Anand Mcfadden niversity of 08:38:00 [facility] FIBRINOGEN 2023-01-01 [facility] 08:38:00 [facility] TRANSFERRIN 2022-12-31 [facility] 20:26:00 [facility] CBC WITH DIFF 2022-12-31 [facility] 20:26:00 [facility] TISSUE TRANSGLUTAMINASE (TTG) IGA 2022-12-31 [facility] 20:26:00 [facility] TRANSFERRIN 2022-12-31 [facility] :26:00 [facility] CBC WITH DIFF 2022-12-31 [facility] 20:26:00 [facility] TISSUE TRANSGLUTAMINASE (TTG) IGA 2022-12-31 [facility] :26:00 [facility] PHOSPHORUS 2022-12-31 [facility] of 11:02:00 [facility] MAGNESIUM 2022-12-31 [facility] 11:02:00 [facility] FERRITIN SERUM 2022-12-31 [facility] 11:02:00 [facility] IRON 2022-12-31 [facility]x [facility] 11:02:00 [facility] BASIC METABOLIC PANEL (NA, K, CL, 2022-12-31 [facility] of CO2, GLUCOSE, BUN, CREATININE, CA) 11:02:00 [facility] CBC WITH DIFF 2022-12-31 [facility] of 11:02:00 [facility] PHOSPHORUS 2022-12-31 [facility] of 11:02:00 [facility] MAGNESIUM 2022-12-31 [facility] 11:02:00 [facility] FERRITIN SERUM 2022-12-31 [facility] :02:00 [facility] IRON 2022-12-31 [facility] 11:02:00 [facility] BASIC METABOLIC PANEL (NA, K, CL, 2022-12-31 [facility], [facility] of CO2, GLUCOSE, BUN, CREATININE, CA) 11:02:00 [facility] CBC WITH DIFF 2022-12-31 [facility] 11:02:00 [facility] TRANSFUSE PACKED RBC 2022-12-31 [facility] of 06:15:00 [facility] TRANSFUSE PACKED RBC 2022-12-31 Gu, [facility] of 06:15:00 [facility] PREPARE PACKED RBC 2022-12-31 [facility], [facility] of 05:50:01 [facility] PREPARE PACKED RBC 2022-12-31 [facility], [facility] of 05:50:01 [facility] GASTRIN 2022-12-31 [facility] of 04:24:00 [facility] PHOSPHORUS 2022-12-31 Gu, [facility] of 04:24:00 [facility] MAGNESIUM 2022-12-31 [facility], [facility] of 04:24:00 [facility] BASIC METABOLIC PANEL (NA, K, CL, 2022-12-31 [facility], [facility] of CO2, GLUCOSE, BUN, CREATININE, CA) 04:24:00 [facility] CBC WITH DIFF 2022-12-31 [facility] 04:24:00 [facility] PROTHROMBIN TIME / INR 2022-12-31 [facility] y of 04:24:00 [facility] ACTIVATED PARTIAL THRMPLAS GARO 2022-12-31 [facility], [facility] niversity of 04:24:00 [facility] MRSA / MSSA SCREEN BY PCR, ANGIE 2022-12-31 [facility] of 04:24:00 [facility] GASTRIN 2022-12-31 [facility] [facility], [facility] of 04:24:00 [facility] PHOSPHORUS 2022-12-31 [place], [facility] of 04:24:00 [facility] MAGNESIUM 2022-12-31 [facility], [facility] of 04:24:00 [facility] BASIC METABOLIC PANEL (NA, K, CL, 2022-12-31 [facility], [facility] of CO2, GLUCOSE, BUN, CREATININE, CA) 04:24:00 [facility] CBC WITH DIFF 2022-12-31 [facility] of 04:24:00 [facility] PROTHROMBIN TIME / INR 2022-12-31 [facility] y of 04:24:00 [facility] ACTIVATED PARTIAL THRMPLAS GARO 2022-12-31 [facility] niversity of 04:24:00 [facility] MRSA / MSSA SCREEN BY PCR, NARES 2022-12-31 [facility] of 04:24:00 [facility] XR KUB 2022-12-31 [facility] of 02:49:25 [facility] XR KUB 2022-12-31 [facility] of 02:49:25 [facility] TRANSFUSE PACKED RBC 2022-12-[address] [facility] y of 02:03:00 F [facility] TRANSFUSE PACKED RBC 2022-12-[address] [facility] y of 02:03:00 F [facility] XR CHEST 1 VW 2022-12-31 [facility] of 01:26:44 F [facility] XR CHEST 1 VW 2022-12-31 [facility] of 01:26:44 F [facility] CT ANGIOGRAM ABDOMEN/PELVIS 2022-12-31 Juliocesar Barbosa Un [facility] of 01:25:42 F [facility] CT ANGIOGRAM ABDOMEN/PELVIS 2022-12-31 Shilpa Barbosa Un iversity of 01:25:42 F [facility] POCT TEST 2022-12-31 [facility] of 00:56:00 F [facility] POCT TEST 2022-12-31 [facility] of 00:56:00 F [facility] HB ABO GROUPING 2022-12-31 [facility] of 00:42:00 F [facility] HB ABO GROUPING 2022-12-31 [facility] of 00:42:00 F [facility] URINALYSIS 2022-12-31 [facility] of 00:26:00 F [facility] URINALYSIS 2022-12-31 [facility] of 00:26:00 F [facility] LIPASE 2022-12-30 [facility] of 23:11:00 F [facility] MAGNESIUM 2022-12-30 [facility] of 23:11:00 F [facility] COMP. METABOLIC PANEL (79346) 2022-12-30 [facility] of 23:11:00 F [facility] CBC WITH DIFF 2022-12-30 [facility] of 23:11:00 F [facility] LIPASE 2022-12-30 [facility] of 23:11:00 F [facility] MAGNESIUM 2022-12-30 [facility] of 23:11:00 F [facility] COMP. METABOLIC PANEL (31505) 2022-12-30 [facility] of 23:11:00 F [facility] CBC WITH DIFF 2022-12-30 [facility] of :11:00 F [facility] ENDOSCOPY PROCEDURE DOCUMENTATION 2022-12-30 [facility] of 05:01:00 Unassigned, No [facility] HOSPITAL ADMISSION 2022-12-30 [facility] of 05:01:00 Unassigned, No [facility] HOSPITAL ADMISSION 2022-12-30 [facility] of 05:01:00 Unassigned, No [facility] CBC WITH DIFF 2022-06-01 [facility] of 17:35:00 [facility] Encounters Start End Encounter Admission Attending Care Care Encounter Source Date/Time Date/Time Type Type Clinicians Facility Department ID 2021-08-14 Outpatient Hardik LUDWIG [facility] ZOLTAN [id number] Univers 11:29:47 JEMIMA lee [facility] 2021-08-11 Outpatient Hardik GELLER [facility] ZOLTAN [id number] Univers 17:24:29 ANDREW lee [facility] 2021-08-10 Emergency [facility] [id number] Univers 23:51:50 ity [facility] 2023-06-03 2023-06-03 Out[facility] R [facility] [id number] Univers 11:30:00 11:30:00 TUCKER ity of [facility] 2023-03-01 2023-03-01 [facility] 1.2.840.114 [id number] Univers 00:00:00 00:00:00 Tucker HEALTH 350.1.13.10 it y of [place] 4.2.7.2.686 Maxim as JORGE?BLEA [id number] [address] OFFICE [facility] 2023-02-27 2023-02-27 [facility] 1.2.840.114 [id number] Univers 00:00:00 00:00:00 Tucker HEALTH 350.1.13.10 it y of [place] 4.2.7.2.686 Maxim as JORGE?BLEA [id number] [address] OFFICE [facility] 2023-01-18 2023-01-18 [facility] 1.2.840.114 [id number] Univers 00:00:00 00:00:00 Tucker HEALTH 350.1.13.10 it y of [place] 4.2.7.2.686 Maxim as JORGE?BLEA [id number] [address] OFFICE [facility] 2023-01-18 2023-01-18 [facility] 1.2.840.114 [id number] Univers 00:00:00 00:00:00 Tucker HEALTH 350.1.13.10 it y of [place] 4.2.7.2.686 Maxim as JORGE?BLEA [id number] [address] OFFICE [facility] 2023-01-17 2023-01-17 [facility] 1.2.840.114 [id number] Univers 00:00:00 00:00:00 Tucker HEALTH 350.1.13.10 it y of [place] 4.2.7.2.686 Maxim as JORGE?BLEA [id number] [address] OFFICE [facility] 2023-01-16 2023-01-16 Office Shruthi Wise [facility] 1.2.840. 114 [id number] Univers 14:00:00 14:15:00 Visit Meme Vanegas MULTISPEC 350.1.13.10 ity of [place] [id number] [facility] AND [facility]OWARD [address] [place] [facility] 2023-01-16 2023-01-16 Outpatient R ROMINA [facility] [id number] Univers 14:00:00 14:00:00 MEME ity o f [facility] 2023-01-11 2023-01-11 Telephone Emeka [facility] 1.2.979.022 [id number] Univers 00:00:00 00:00:00 José Manuel SPECIALTY 350.1.13.10 ity of [facility] 4.2.7.2.686 Maxim as CENTER AT [id number] Ok sebasyousif LEWIS 072 [facility] 2023-01-11 2023-01-11 Telephone Ralf [facility] 1.2.317.164 [id number] Univers 00:00:00 00:00:00 Tucker HEALTH 350.1.13.10 it y of [place] 4.2.7.2.686 Maxim as JORGE?BLEA [id number] Ok sebasyousif AVERY [address] [place] MEDICAL OFFICE BUILDING 2023-01-09 2023-01-09 Orders Doctor EMEKA 1.2.840.114 [id number] Univers 00:00:00 00:00:00 Only Unassigned, MARIMAR 350.1.13.10 ity of [facility] 4.2.7.2.686 Maxim as [id number] [facility] 009 Branch 2023-01-06 2023-01-06 Patient PhanChuck [facility] 1.2.840.114 [id number] Univers 00:00:00 00:00:00 Secure Msg Y HEALTH 350.1.13.10 ity of CL[place]ICS [place] [id number] [facility] 071 Branch 2023-01-03 2023-01-03 [facility] 1.2.840.114 [id number] Univers 00:00:00 00:00:00 of Care Lovely CON[place] 350.1.13.10 i ty [place] [id number] [facility] 403 Branch 2022-12-30 2023-01-02 Inpatient X FRITZ [facility] [id number] Univers 17:21:00 17:36:00 YE it y of [facility] 2022-12-30 2023-01-02 [facility] Shilpa Barbosa 1.2.8 40.114 [id number] Univers 17:21:00 17:36:00 Encounter Singer Bigggeorge MINAYA 350.1.13.10 ity of [facility] 4.2.7.2.686 [place] [id number] [place] [id number] Branch 2023-01-01 2023-01-01 Surgery [facility] 1.2.354.775 [id number] Univers 10:02:00 10:49:00 Akshata DEV 350.1.13.10 it y of [place]ENC[place] 4.2.7.2.686 Maxim as BLDG [id number] [facility] 020 Branch 2022-12-28 2022-12-28 Outpatient R [facility] [id number] Univers 00:00:00 00:00:00 TUCKER lee of [facility] 2022-12-05 2022-12-05 Telephone [facility] 1.2.948.027 [id number] Univers 00:00:00 00:00:00 Tucker GOODE 350.1.13.10 it y of [place] 4.2.7.2.686 Maxim as JORGE?BLEA [id number] [address] MEDICAL OFFICE BUILDING 2022-11-30 2022-11-30 Outpatient R RALF [facility] [id number] Univers 09:30:00 10:48:41 TUCKER lee of [facility] 2022-11-30 2022-11-30 Office [facility] 1.2.840.114 [id number] Univers 09:30:00 10:48:41 Visit Tucker GOODE 350.1.13.10 it y of [place] 4.2.7.2.686 Maxim as JORGE?BLEA [id number] [address] MEDICAL OFFICE [facility] 2022-10-15 2022-10-15 Outpatient Hardik BRADFORD [facility] [id number] Univers 12:30:00 12:30:00 OCHOA jesus [facility] 2022-10-11 2022-10-11 [facility] 1.2.840.114 [id number] Univers 00:00:00 00:00:00 Tucker HEALTH 350.1.13.10 it y of [place] 4.2.7.2.686 Maxim as JORGE?BLEA [id number] [address] OFFICE [facility] 2022-10-10 2022-10-10 [facility]ula[facility]THER[facility] 1.2.840.114 [id number] Univers 00:00:00 00:00:00 Tucker HEALTH 350.1.13.10 it y of [place] 4.2.7.2.686 Maxim as JORGE?BLEA [id number] [address] OFFICE [facility] 2022-10-08 2022-10-08 [facility] 1.2.840.114 [id number] Univers 00:00:00 00:00:00 Tucker HEALTH 350.1.13.10 it y of [place] 4.2.7.2.686 Maxim as JORGE?BLEA [id number] [address] OFFICE [facility] 2022-09-12 2022-09-12 [facility] 1.2.840.114 [id number] Univers 00:00:00 00:00:00 Tucker HEALTH 350.1.13.10 it y of [place] 4.2.7.2.686 Maxim as JORGE?BLEA [id number] [address] OFFICE [facility] 2022-09-03 2022-09-03 Outpatient Hardik SAWYER [facility] [id number] Univers 11:00:00 11:00:00 DOROTA lee [facility] 2022-09-03 2022-09-03 Outpatient Hardik SAWYER [facility] [id number] Univers 11:00:00 11:00:00 DOROTA lee [facility] 2022-08-21 2022-08-21 Refill [facility] 1.2.840.114 [id number] Univers 00:00:00 00:00:00 Tucker HEALTH 350.1.13.10 it y of [place] 4.2.7.2.686 Maxim as JORGE?BLEA [id number] [address] MEDICAL OFFICE [facility] 2022-08-02 2022-08-02 Patient Samir [facility] 1.2.840.114 [id number] Univers 00:00:00 00:00:00 Secure Ms Cece Weber HEALTH 350.1.13.10 ity of [place] 4.2.7.2.686 Maxim as JORGE?BLEA [id number] [address] OFFICE [facility] 2022-07-30 2022-07-30 Telephone Ralf [facility] 1.2.885.372 [id number] Univers 00:00:00 00:00:00 Tucker HEALTH 350.1.13.10 it y of [place] 4.2.7.2.686 Maxim as JORGE?BLEA [id number] [address] OFFICE [facility] 2022-07-27 2022-07-27 Office [facility]afNORTHERN [facility] 1.2.840.114 [id number] Univers 13:30:00 15:11:23 Visit Tucker GOODE 350.1.13.10 it y of [place] 4.2.7.2.686 Maxim as JORGE?BLEA [id number] [address] OFFICE [facility] 2022-07-27 2022-07-27 Outpatient R RALF [facility] [id number] Univers 13:30:00 15:11:23 TUCKER analibernadette [facility] 2022-07-27 2022-07-27 Cnc Machine Programmer Lab, Ang - Tian [facility] 1.2.840.1 14 [id number] Univers 14:15:00 14:30:00 Visit Gardenia Arambulaa HEALTH 350.1.13.10 ity of [place] 4.2.7.2.686 Maxim as JORGE?BLEA [id number] [address] MEDICAL OFFICE [facility] 2022-07-19 2022-07-19 Refill [facility]ioNORTHERN [facility]AVA[facility] 1.2.840.114 [id number] Univers 00:00:00 00:00:00 Dorota HEALTH 350.1.13.10 ity of [place] 4.2.7.2.686 Maxim as JORGE?BLEA [id number] [address] MEDICAL OFFICE [facility] 2022-07-16 2022-07-16 Outpatient R RALF [facility] [id number] Univers 14:00:00 14:00:00 TUCKER itbernadette [facility] 2022-06-28 2022-06-28 [facility] 1.2.840.114 [id number] Univers 00:00:00 00:00:00 Dorota HEALTH 350.1.13.10 ity of [place] 4.2.7.2.686 Maxim as JORGE?BLEA [id number] [address] OFFICE [facility] 2022-06-06 2022-06-06 Emanuel ArambulaNORTHERN NAVAJO [facility] 1.2.840.114 [id number] Univers 00:00:00 00:00:00 Tucker HEALTH 350.1.13.10 it y of [place] 4.2.7.2.686 Maxim as JORGE?BLEA [id number] [address] OFFICE [facility] 2022-06-04 2022-06-04 Kiowa [facility]NOR[facility]N [facility] 1.2.952.001 [id number] Univers 00:00:00 00:00:00 Dorota HEALTH 350.1.13.10 ity of [place] 4.2.7.2.686 Maxim as JORGE?BLEA [id number] [address] OFFICE [facility] 2022-06-01 2022-06-01 Cnc Machine Programmer Lab, Simón - Tian [facility] 1.2.840.1 14 [id number] Univers 12:30:00 12:45:00 Visit [facility], Dorota HEALTH 350.1.13.10 ity of [place] 4.2.7.2.686 Maxim as JORGE?BLEA [id number] [address] OFFICE [facility] 2022-06-01 2022-06-01 Outpatient R KLEY, [facility] [id number] Univers 11:20:00 12:13:24 [facility] 2022-06-01 2022-06-01 Office [facility] 1.2.840.114 [id number] Univers 11:20:00 12:13:24 Visit Dorota HEALTH 350.1.13.10 ity of [place] 4.2.7.2.686 Maxim as JORGE?BLEA [id number] [address] MEDICAL OFFICE [facility] 2022-06-01 2022-06-01 Outpatient R KLEY, [facility] [id number] Univers 11:20:00 12:13:24 [facility] 2022-06-01 2022-06-01 Outpatient R KLEY, [facility] [id number] Univers 11:20:00 12:13:24 [facility] 2022-06-01 2022-06-01 [facility] 1.2.840.114 [id number] Univers 00:00:00 00:00:00 Dorota HEALTH 350.1.13.10 ity of [place] 4.2.7.2.686 Maxim as JORGE?BLEA [id number] [address] OFFICE [facility] 2022-05-31 2022-05-31 Emanuel DuncanNORTHERN NAVA[facility] 1.2.840.114 [id number] Univers 00:00:00 00:00:00 Nam HEALTH 350.1.13.10 it y of [place] 4.2.7.2.686 Maxim as JORGE?BLEA [id number] [address] OFFICE [facility] 2022-05-31 2022-05-31 Telephone [facility] 1.2.840.502 [id number] Univers 00:00:00 00:00:00 Tucker HEALTH 350.1.13.10 it y of [place] 4.2.7.2.686 Maxim as JORGE?BLEA [id number] [address] MEDICAL OFFICE [facility] 2022-05-28 2022-05-28 Outpatient R SILVERIOSELECT [facility] [id number] Univers 16:20:00 16:20:00 [facility] 2022-05-24 2022-05-24 Outpatient R SILVERIOSELECT [facility] [id number] Univers 16:20:00 16:20:00 [facility] 2022-05-07 2022-05-07 Refill [facility] 1.2.840.114 [id number] Univers 00:00:00 00:00:00 Tucker HEALTH 350.1.13.10 it [facility] 4.2.7.2.686 Maxim as JORGE?BLEA [id number] [address] MEDICAL OFFICE [facility] 2022-05-07 2022-05-07 Transition [facility] T[facility]q 1.2.840.114 [id number] Univers 00:00:00 00:00:00 of Care Karoline CONRO[place] 350.1.13.10 i ty of [place] [id number] [facility] [address] [place] 2022-04-30 2022-05-05 Inpatient X NICO [facility] IVIS [id number] Univers 14:21:00 13:34:00 CANDACE lee [facility] 2022-04-30 2022-05-05 [facility] 1.2.840. 114 [id number] Univers 14:21:00 13:34:00 Encounter Candace Walsh 350.1.13.10 ity of [place] 4.2.7.2.686 [facility] [id number] [facility] [address] [place] 2022-04-30 2022-04-30 Telephone Ralf [facility] 1.2.329.595 [id number] Univers 00:00:00 00:00:00 Tucker HEALTH 350.1.13.10 it y of [place] 4.2.7.2.686 Maxim as JORGE?BLEA [id number] [address] OFFICE [facility] 2022-04-30 2022-04-30 Emanuel DuncanNORTHERN NAVA[facility] 1.2.840.114 [id number] Univers 00:00:00 00:00:00 Nam HEALTH 350.1.13.10 it y of [place] 4.2.7.2.686 Maxim as JORGE?BLEA [id number] [address] MEDICAL OFFICE [facility] 2022-04-07 2022-04-07 Refheena Stevens [facility] 1.2.840.114 [id number] Univers 00:00:00 00:00:00 Ketty HEALTH 350.1.13.10 it y of [place] 4.2.7.2.686 Maxim as JORGE?BLEA [id number] [address] OFFICE [facility] 2022-03-20 2022-03-20 Telephone [facility] 1.2.554.492 [id number] Univers 00:00:00 00:00:00 Tucker HEALTH 350.1.13.10 it y of [place] 4.2.7.2.686 Maxim as JORGE?BLEA [id number] [address] OFFICE [facility] 2022-03-19 2022-03-19 Telephone [facility]THER[facility] 1.2.488.227 [id number] Univers 00:00:00 00:00:00 Tucker HEALTH 350.1.13.10 it y of [place] 4.2.7.2.686 Maxim as JORGE?BLEA [id number] [address] OFFICE [facility] 2022-03-14 2022-03-14 Telephone [facility] 1.2.896.008 [id number] Univers 00:00:00 00:00:00 Tucker HEALTH 350.1.13.10 it y of [place] 4.2.7.2.686 Maxim as JORGE?BLEA [id number] [address] OFFICE [facility] 2022-03-13 2022-03-13 [facility] 1.2.840.114 [id number] Univers 00:00:00 00:00:00 Tucker HEALTH 350.1.13.10 it y of [place] 4.2.7.2.686 Maxim as JORGE?BLEA [id number] [address] OFFICE [facility] 2022-02-12 2022-02-12 [facility] ArambulaNORTHERN [facility]AVA[facility] 1.2.840.114 [id number] Univers 00:00:00 00:00:00 Tucker HEALTH 350.1.13.10 it y [facility] 4.2.7.2.686 Maxim as JORGE?BLEA [id number] [address] 2022-01-19 2022-01-19 Outpatient Hardik ARAMBULASELECT MEDICAL SPECIAL[facility] [id number] Univers 15:00:00 15:00:00 TUCKER lee [facility] 2021-12-27 2021-12-27 Telephone YohanNORTHERN NAVA[facility] 1.2.840.114 [id number] Univers 00:00:00 00:00:00 Kiel SPECIALTY 350.1.13.10 [facility]y [facility] [place] C[place] AT [id number] [address] 2021-12-26 2021-12-26 Outpatient R YOHANSELECT [facility] [id number] Univers 10:30:00 10:30:00 KIELNEFTALY lee [facility] 2021-12-05 2021-12-05 Outpatient Hardik ARAMBULASELECT MEDICAL [facility] [id number] Univers 10:30:00 10:30:00 TUCKER lee [facility] 2021-11-30 2021-11-30 Outpatient Hardik ARAMBULASELECT [facility]ICAL [facility] [id number] Univers 10:30:00 10:30:00 TUCKER bernadette [facility] 2021-11-13 2021-11-13 Telephone [facility]NORTHER[facility] 1.2.339.466 [id number] Univers 00:00:00 00:00:00 Tucker HEALTH 350.1.13.10 it y of [place] 4.2.7.2.686 Maxim as JORGE?BLEA [id number] [address] 2021-10-16 2021-10-16 [facility] ArambulaNORTHERN NAVA[facility] 1.2.840.114 [id number] Univers 00:00:00 00:00:00 Tucker HEALTH 350.1.13.10 it y of [place] 4.2.7.2.686 Maxim as JORGE?BLEA [id number] Ok amor AVERY [address] [place] MEDICAL OFFICE BUILDING 2021-10-03 2021-10-03 Case [facility] 1.2.840.114 [id number] Univers 00:00:00 00:00:00 Management Michelleashleigh [place] 350.1.13.10 [place]y [place] [id number] [facility] [address] [place] 2021-09-19 2021-09-19 Emanuel HendricksonNORTHERN NAVAJO [facility]ICAL [facility]ENTER 1.2.840.114 [id number] Univers 00:00:00 00:00:00 José Manuel SPECIALTY 350.1.13.10 ity of [facility] 4.2.7.2.686 Maxim as CENTER AT [id number] Ok sebasyousif LEWIS [address] [place] [address] 2021-09-18 2021-09-18 Office YohanNORTHERN NAVA[facility] 1.2.820.229 [id number] Univers 12:57:33 13:44:40 Visit Kiel SPECIALTY 350.1.13.10 ity of [facility] 4.2.7.2.[place] CENTER AT [id number] Ok sebasyousif LEWIS [address] [facility] 2021-09-18 2021-09-18 Outpatient R [facility]ANSELECT [facility] [id number] Univers 12:30:00 13:44:40 KIEL lee [facility] 2021-09-18 2021-09-18 Outpatient R YOHANSELECT [facility] [id number] Univers 12:30:00 12:30:00 KIEL lee [facility] 2021-09-18 2021-09-18 Emanuel HendricksonNORTHERN NAVAJO [facility] 1.2.840.114 [id number] Univers 00:00:00 00:00:00 José Manuel SPECIALTY 350.1.13.10 ity of [facility] 4.2.7.2.686 Maxim as CENTER AT [id number] Ok sebasyousif COULTERBernadette [address] [place] [address] 2021-09-15 2021-09-15 Outpatient R FREDDIESELECT MEDICAL [facility] [id number] Univers 10:20:00 10:20:00 JYOTI lee [facility] 2021-09-15 2021-09-15 Outpatient Hardik FRAZIER [facility] [id number] Univers 10:20:00 10:20:00 JYOTI lee [facility] 2021-09-15 2021-09-15 [facility] HendricksonNORTHERN [facility] 1.2.840.114 [id number] Univers 00:00:00 00:00:00 José Manuel SPECIALTY 350.1.13.10 ity of [facility] 4.2.7.2.686 Maxim as CENTER AT [id number] Ok sebasSouth Baldwin Regional Medical CenterBernadette [address] [place] [address] 2021-09-15 2021-09-15 Emanuel HendricksonNORTHERN NAVAJO [facility] 1.2.840.114 [id number] Univers 00:00:00 00:00:00 José Manuel SPECIALTY 350.1.13.10 ity of [facility] 4.2.7.2.686 Maxim as CENTER AT [id number] Ok amor [address] 2021-09-12 2021-09-12 Emanuel ArambulaNORTHERN NAVAJO [facility] [id number] Univers 00:00:00 00:00:00 [facility] [id number] it y of [facility] [id number] Maxim as JORGE?BLEA [phone] [address] MEDICAL OFFICE BUILDING 2021-09-11 2021-09-11 Outpatient [facility] [id number] Univers 14:00:00 14:00:00 KIEL lee [facility] 2021-09-04 2021-09-04 Outpatient Hardik ALMANZAR [facility] [id number] Univers 07:50:55 23:59:00 KIEL lee [facility] 2021-09-04 2021-09-04 [facility] [id number] Univers 07:50:55 23:59:00 Encounter Kiel TOBIN [id number] ity of [place] [id number] [place] [facility] [phone] [facility] [address] [place] 2021-08-28 2021-08-28 Office [facility] 1.2.804.001 [id number] Univers 13:34:20 14:14:59 Visit Kiel NINA 350.1.13.10 ity of [facility] 4.2.7.2.686 [place] AT [phone] Ok amor COULTERBernadette 198 [facility] 2021-08-28 2021-08-28 Out[facility] [id number] Univers 13:30:00 14:14:59 KIELNEFTALY lee [facility] 2021-08-28 2021-08-28 Outpatient [facility] [id number] Univers 13:30:00 14:14:59 KIEL lee [facility] 2021-08-28 2021-08-28 Orders Doctor HENDRICKSON 1.2.840.114 [id number] Univers 00:00:00 00:00:00 Only Unassigned, MARIMAR 350.1.13.10 ity of [facility] 4.2.7.2.686 Maxim as [phone] [facility] [address] [place] 2021-08-22 2021-08-22 Outpatient [facility] [id number] Univers 10:15:00 10:15:00 KIEL lee [facility] 2021-08-22 2021-08-22 Outpatient [facility] [id number] Univers 10:15:00 10:15:00 KILE lee [facility] 2021-08-15 2021-08-15 Outpatient R RALF [facility] [id number] Univers 14:30:00 15:47:32 TUCKER lee [facility] 2021-08-15 2021-08-15 [facility] 1.2.840.114 [id number] Univers 14:26:25 15:47:32 Visit Tucker [facility] 350.1.13.10 it y of [place] 4.2.7.2.686 Maxim as JORGE?BLEA [phone] Ok amor AVERY [address] [place] MEDICAL [facility] 2021-07-27 2021-07-27 Telephone [facility] 1.2.141.949 [id number] Univers 00:00:00 00:00:00 [facility] 350.1.13.10 it y of [place] 4.2.7.2.686 Maxim as Jorge?Blea [phone] [address] Medical [facility]ly Named [facility] 2021-07-19 2021-07-19 Outpatient Hardik [facility] 76511 [id number] Univers 13:45:00 13:45:00 [facility] 2021-07-18 2021-07-18 [facility] 1.2.840.114 [id number] Univers 14:00:00 23:59:00 Encounter Andrew Tobin 350.1.13.10 ity of [place].2.7.2.686 [place] [facility] [phone] [address] 2021-07-18 2021-07-18 Outpatient R [facility] [id number] Univers 00:00:00 00:00:00 ANDREW lee o f [facility] 2021-07-17 2021-07-17 Outpatient R [facility] [id number] Univers 14:00:00 14:00:00 JYOTI [facility] 2021-07-11 2021-07-11 Outpatient Hardik [facility]DRICKSON[facility] [id number] Univers 11:00:00 11:00:00 JOSÉ MANUEL [facility] 2021-07-10 2021-07-10 [facility] 1.2.840.114 [id number] Univers 00:00:00 00:00:00 Secure Msg [facility] 350.1.13.10 ity of [place] 4.2.7.2.686 Maxim as Jorge?Blea [phone] [address] 2021-07-10 2021-07-10 Letter [facility] 1.2.840.114 [id number] Univers 00:00:00 00:00:00 (Out) [facility] 350.1.13.10 it y of [place] 4.2.7.2.686 Maxim as Jorge?Blea [phone] Ok amor rodríguez [address] [place] Medical Office Building 2021-07-07 2021-07-07 [facility] 1.2.840.114 [id number] Univers 16:00:00 23:59:00 Encounter [facility] 350.1.13.10 ity of [place] 4.2.7.2.686 Maxim as Jorge?Blea [phone] Ok dicyousif avery [address] [place] Medical Office [facility] 2021-07-07 2021-07-07 [facility] 1.2.840.114 [id number] Univers 15:43:59 15:59:00 Encounter [facility] 350.1.13.10 ity of [place] 4.2.7.2.686 Maxim as Jorge?Blea [phone] [facility] [address] [facility] Office [facility] 2021-07-07 2021-07-07 Outpatient R [facility] [id number] Univers 14:20:00 14:20:00 TUCKER ity [facility] 2021-07-07 2021-07-07 Outpatient R [facility] [id number] Univers 00:00:00 00:00:00 TUCKER ity [facility] 2021-07-07 2021-07-07 [facility] 1.2.840.114 [id number] Univers 00:00:00 00:00:00 [facility] 350.1.13.10 it y of [place] 4.2.7.2.686 Maxim as Jorge?Blea [phone] [facility] anne[address] Medical Office [facility] 2021-07-06 2021-07-06 [facility]phone [facility] 1.2.689.171 [id number] Univers 00:00:00 00:00:00 [facility] 350.1.13.10 it y of [place] 4.2.7.2.686 Maxim as Jorge?Blea [phone] [facility] anne[address] Medical Office [facility] 2021-07-04 2021-07-04 [facility] 1.2.840.114 [id number] Univers 13:09:58 13:59:18 Visit [facility] 350.1.13.10 it y of [place] 4.2.7.2.686 Maxim as Jorge?Blea [phone] Ok amor [address] Medical Office Building 2021-07-04 2021-07-04 Outpatient R RALF, [facility] [id number] Univers 13:00:00 13:00:00 TUCKER analibernadette [facility] 2021-06-13 2021-06-13 Outpatient R [facility] [id number] Univers 00:00:00 00:00:00 ANDREW lee o f [facility] 2021-06-12 2021-06-12 Patient [facility] 1.2.840.114 [id number] Univers 00:00:00 00:00:00 Secure Msg José Manuel SPECIALTY 350.1.13.10 ity of [place] CARE 4.2.7.2.686 Maxim as CENTER AT [phone] Ok sebas[address] 2021-06-12 2021-06-12 Patient [facility] 1.2.840.114 [id number] Univers 00:00:00 00:00:00 Secure Msg José Manuel SPECIALTY 350.1.13.10 ity of [place] CARE 4.2.7.2.686 Maxim as CENTER AT [phone] Ok amor LEWIS [address] [place] [address] 2021-06-07 2021-06-07 Patient [facility] 1.2.840.114 [id number] Univers 00:00:00 00:00:00 Secure Msg José Manuel SPECIALTY 350.1.13.10 ity of [place] C[place] 4.2.7.2.686 Maxim as CENTER AT [phone] Ok sebasSouth [facility] CenterBernadette [address] [place] [address] 2021-06-07 2021-06-07 Patient [facility] 1.2.840.114 [id number] Univers 00:00:00 00:00:00 Secure Msg José Manuel SPECIALTY 350.1.13.10 ity of [place] C[place] 4.2.7.2.686 Maxim as CENTER AT [phone] Ok amor LEWIS [address] [place] [address] 2021-06-02 2021-06-02 Patient Emeka [facility] 1.2.840.114 [id number] Univers 00:00:00 00:00:00 Secure Msg José Manuel SPECIALTY 350.1.13.10 ity of [place] CARE 4.2.7.2.686 Maxim as CENTER AT [phone] [place] amor [place] [address] [place] [address] 2021-06-02 2021-06-02 Patient [facility] 1.2.840.114 [id number] Univers 00:00:00 00:00:00 Secure Msg José Manuel SPECIALTY 350.1.13.10 ity of [place] CARE 4.2.7.2.686 Maxim as CENTER AT [phone] [address] 2021-05-30 2021-05-30 Outpatient Hardik GELLER [facility] [id number] Univers 00:00:00 00:00:00 ANDREW holt [facility] 2021-05-29 2021-05-29 Telephone [facility] 1.2.349.403 [id number] Univers 00:00:00 00:00:00 José Manuel SPECIALTY 350.1.13.10 ity of [place] C[place] 4.2.7.2.686 Maxim as CENTER AT [phone] Ok sebas[address] 2021-05-18 2021-05-18 Letter RAHUL Ludwig 1.2.840.114 [id number] Univers 00:00:00 00:00:00 (Out) [facility] 350.1.13.10 i ty of [place] CLINICS [place].2.7.2.[place] [phone] [address] 2021-05-16 2021-05-16 Patient [facility] 1.2.840.114 [id number] Univers 00:00:00 00:00:00 Secure Msg Jemima SPECIALTY 350.1.13.10 ity of [place] CARE 4.2.7.2.686 [place] CENTER AT [phone] Ok amor DEBBIE [address] [place] [address] 2021-05-15 2021-05-15 Hospital [facility] 1.2.840.114 [id number] Univers 11:44:00 14:20:00 Encounter Jemima ICAL 350.1.13.10 ity of [place] [employer] 4.2.7.2.686 Maxim as BLDG [phone] [address] 2021-05-15 2021-05-15 Surgery [facility] 1.2.840.114 [id number] Univers 12:13:00 12:44:00 Jemima ICAL 350.1.13.10 it y of [place] SCIENCES 4.2.7.2.686 Maxim as BLDG [id number] [address] 2021-05-15 2021-05-15 Orders Doctor EMEKA 1.2.840.114 [id number] Univers 00:00:00 00:00:00 Only Unassigned, MARIMAR 350.1.13.10 ity of [place] [facility] 4.2.7.2.686 Maxim as [phone] [address] 2021-05-15 2021-05-15 Telephone Emeka [facility] 1.2.134.103 [id number] Univers 00:00:00 00:00:00 José Manuel SPECIALTY 350.1.13.10 ity of [facility] 4.2.7.2.686 Maxim as CENTER AT [phone] Ok amor DEBBIE [address] [place] [address] 2021-05-11 2021-05-11 Outpatient R [facility] [id number] Univers 13:00:00 13:00:00 ity of [facility] 2021-05-11 2021-05-11 Orders Doctor EMEKA 1.2.840.114 [id number] Univers 00:00:00 00:00:00 Only Unassigned, MARIMAR 350.1.13.10 ity of [place] [facility] 4.2.7.2.686 Maxim as [id number] [address] 2021-05-09 2021-05-09 Office Emeka [facility] 1.2.840.114 [id number] Univers 09:58:46 16:58:47 Visit José Manuel SPECIALTY 350.1.13.10 ity of [place] CARE 4.2.7.2.686 Maxim as CENTER AT [phone] Ok amor LEWIS 072 [facility] 2021-05-09 2021-05-09 Cnc Machine Programmer Vls-Lab [facility] 1.2.840.114 [id number] Univers 10:43:19 10:58:19 Visit José Manuel Hendricksonsh SPECIALTY 350.1. 13.10 ity of CARE 4.2.7.2.686 [place] CENTER AT [phone] Ok amor LEWIS 353 [facility] 2021-05-09 2021-05-09 Outpatient R EMEKA [facility] [id number] Univers 10:00:00 10:00:00 JOSÉ MANUEL [facility] 2021-05-09 2021-05-09 Orders Doctor EMEKA 1.2.840.114 [id number] Univers 00:00:00 00:00:00 Only Unassigned, MARIMAR 350.1.13.10 ity of [place] [facility] 4.2.7.2.686 Maxim as [phone] [address] 2021-04-05 2021-04-05 Refill TeressaRoxanna [facility] 1.2.840.114 [id number] Univers 00:00:00 00:00:00 l, Sarah N SPECIALTY 350.1.13.10 ity of CARE 4.2.7.2.686 [place] CENTER AT [phone] Ok amor LEWIS [address] [place] [address] 2021-04-04 2021-04-04 Refill [facility] 1.2.840.114 [id number] Univers 00:00:00 00:00:00 l, Sarah N SPECIALTY 350.1.13.10 ity of C[place] 4.2.7.2.686 [place] CENTER AT [phone] Ok amor Hassan[address] [place] [address] 2020-09-29 2020-09-29 Outpatient R KEYLA [facility] [id number] Univers 14:30:00 14:30:00 CHYNA lee [facility] 2020-06-16 2020-06-16 Outpatient R [facility] [id number] Univers 15:00:00 15:00:00 ity of [facility] 2020-06-16 2020-06-16 Telemedici Sarah Santacruz [facility] 1.2.840.114 [id number] Univers 06:40:26 07:10:26 ne Visit Chyna Ramires SPECIALTY 350.1.13.1 0 ity of CARE 4.2.7.2.686 [place] CENTER AT [phone] Ok amor LEWIS [address] [place] [address] 2020-05-23 2020-05-23 Outpatient R [facility] [id number] Univers 14:30:00 14:30:00 WONDIFUL ity o f [facility] 2020-05-05 2020-05-06 Office Sarah Santacruz [facility] 1.2 .840.114 [id number] Univers 15:04:28 11:41:53 Visit Rohit Pastor SPECIALTY 350.1.13.10 ity of CARE 4.2.7.2.686 [place] CENTER AT [phone] Ok amor LEWIS [address] [place] [address] 2020-05-05 2020-05-05 Outpatient R DAWIT [facility] [id number] Univers 15:00:00 15:00:00 ROHIT ity of [facility] 2020-05-05 2020-05-05 Orders Doctor HENDRICKSON 1.2.840.114 [id number] Univers 00:00:00 00:00:00 Only Unassigned, MARIMAR 350.1.13.10 ity of [place] [facility] 4.2.7.2.686 Maxim as [id number] [facility] [address] 2020-03-24 2020-03-24 Transition [facility] 1.2.840.114 [id number] Univers 00:00:00 00:00:00 of Care Lovely Conroy 350.1.13.10 i ty of [place] 4.2.7.2.686 [place] [phone] [facility] [address] 2020-03-20 2020-03-23 [facility] Shital Mathur [facility] 1.2.840.11 [id number] Univers 15:21:32 17:48:00 Encounter Ashish Butts 350.1.13.10 ity of [place] 4.2.7.2.686 [place] [facility] [phone] [facility] 0[address] 2020-01-16 2020-01-16 Telephone EMEKA [place] 1.2.162.033 [id number] Univers 00:00:00 00:00:00 Shira MINAYA 350.1.13.10 it y of [facility] 4.2.7.2.686 Maxim as [phone] [facility] 019 Branch 2020-01-14 2020-01-14 Urgent Pob1, Acute Care Clinic [facility] 1. 2.840.114 [id number] Univers 14:15:31 14:35:31 Care Yoon [facility] 350.1.13.10 ity of [place] 4.2.7.2.686 Maxim as Destinee [phone] [address] Office Building One 2020-01-14 2020-01-14 Outpatient R TARSHASAMEER [facility] [id number] Univers 14:20:00 14:20:00 ESTELLE [facility] Results Test Description Test Time Test Comments Results Result Comments Source GASTRIN 2023-01-01 20:56:13 Test Item Value Reference [place] Interpretation Comme nts GASTRIN (test code = 2333-3) 37 pg/mL 0-100 Performed By: [employer] [place] [address] [id number] Director: Jimmie Carlson MD, PhD [facility]20[facility]-21 20:56:13 Test Item Value Reference [place] Interpretation Comments GASTRIN (test code = 37 pg/mL 0-100 Perform ed By: ARABELLA 2333-3) [address] [place] [address] 67483Dryslfmtkx Director: Gustavo Carlson MD, PhD [facility] WITH [id number] 16:48:38 Test Item Value Reference [place] Interpretation Comments WBC (test code = 4.70 See_Comment [Automated 8655-2) message] The sy stem which generated this result transmitted reference range : 4.30 - 11.10 10*3/?L. The reference range was not used to interpret this result as normal/abnormal . RBC (test code = 3.52 See_Comment L [Automated 789-8) message] The sy stem which generated this result transmitted reference range : 3.93 - 5.25 10*6/?L. The reference range was not used to interpret this result as normal/abnormal . HGB (test code = 9.3 g/dL 11.6-15.0 L 718-7) HCT (test code = 28.7 % 35.7-45.2 L 4544-3) MCV (test code = 81.5 fL 80.6-95.5 787-2) MCH (test code = 26.4 pg 25.9-32.8 785-6) MCHC (test code = 32.4 g/dL 31.6-35.1 786-4) RDW-SD (test code = 45.8 fL 39.0-49.9 38275-3) RDW-CV (test code = 15.7 % 12.0-15.5 H 788-0) PLT (test code = 311 See_Comment [Automated 777-3) message] The sy stem which generated this result transmitted reference range : 166 - 358 10*3/ ?L. The reference r susana was not used to interpret this result as normal/abnormal . MPV (test code = 10.0 fL 9.5-12.9 59431-7) NRBC/100 WBC (test 0.0 See_Comment [Automat ed code = 7697269253) message] The system which generated this result transmitted reference range : 0.0 - 10.0 /100 WBCs. The refer ence range was not u sed to interpret th is result as normal/abnormal . NRBC x10^3 (test code See_Comment [Auto mated = 2535433196) message] The s ystem which generated this result transmitted reference range : 10*3/?L. The reference range was not used to interpret this result as normal/abnormal . GRAN MAT (NEUT) % 50.6 % (test code = 770-8) IMM GRAN % (test code 0.20 % = 1933568051) LYMPH % (test code = 35.1 % 736-9) MONO % (test code = 8.3 % 5905-5) EOS % (test code = 4.5 % 713-8) BASO % (test code = 1.3 % 706-2) GRAN MAT x10^3(ANC) 2.38 10*3/uL 1.88-7.09 (test code = 3891662614) IMM GRAN x10^3 (test 0.00-0.06 code = 8351916798) LYMPH x10^3 (test code 1.65 10*3/uL 1.32-3.29 = 731-0) MONO x10^3 (test code 0.39 10*3/uL 0.33-0.92 = 742-7) EOS x10^3 (test code = 0.21 10*3/uL 0.03-0.39 711-2) BASO x10^3 (test code 0.06 10*3/uL 0.01-0.07 = 704-7) Lab Interpretation Abnormal (test code = 12851-2) [facility] WITH [id number] 16:48:38 Test Item Value Reference [place] Interpretation Comments WBC (test code = 4.70 See_Comment [Automated 6690-2) message] The sy stem which generated this result transmitted reference range : 4.30 - 11.10 10*3/?L. The reference range was not used to interpret this result as normal/abnormal . RBC (test code = 3.52 See_Comment L [Automated 179-8) message] The sy stem which generated this result transmitted reference range : 3.93 - 5.25 10*6/?L. The reference range was not used to interpret this result as normal/abnormal . HGB (test code = 9.3 g/dL 11.6-15.0 L 718-7) HCT (test code = 28.7 % 35.7-45.2 L 4544-3) MCV (test code = 81.5 fL 80.6-95.5 787-2) MCH (test code = 26.4 pg 25.9-32.8 785-6) MCHC (test code = 32.4 g/dL 31.6-35.1 786-4) RDW-SD (test code = 45.8 fL 39.0-49.9 63546-7) RDW-CV (test code = 15.7 % 12.0-15.5 H 788-0) PLT (test code = 311 See_Comment [Automated 777-3) message] The sy stem which generated this result transmitted reference range : 166 - 358 10*3/ ?L. The reference r susana was not used to interpret this result as normal/abnormal . MPV (test code = 10.0 fL 9.5-12.9 50406-7) NRBC/100 WBC (test 0.0 See_Comment [Automat ed code = 3513399497) message] The system which generated this result transmitted reference range : 0.0 - 10.0 /100 WBCs. The refer ence range was not u sed to interpret th is result as normal/abnormal . NRBC x10^3 (test code See_Comment [Auto mated = 4312968321) message] The s ystem which generated this result transmitted reference range : 10*3/?L. The reference range was not used to interpret this result as normal/abnormal . GRAN MAT (NEUT) % 50.6 % (test code = 770-8) IMM GRAN % (test code 0.20 % = 2607302255) LYMPH % (test code = 35.1 % 736-9) MONO % (test code = 8.3 % 5905-5) EOS % (test code = 4.5 % 713-8) BASO % (test code = 1.3 % 706-2) GRAN MAT x10^3(ANC) 2.38 10*3/uL 1.88-7.09 (test code = 2784339783) IMM GRAN x10^3 (test 0.00-0.06 code = 4195802884) LYMPH x10^3 (test code 1.65 10*3/uL 1.32-3.29 = 731-0) MONO x10^3 (test code 0.39 10*3/uL 0.33-0.92 = 742-7) EOS x10^3 (test code = 0.21 10*3/uL 0.03-0.39 711-2) BASO x10^3 (test code 0.06 10*3/uL 0.01-0.07 = 704-7) Lab Interpretation Abnormal (test code = 02246-1) [facility] Packed RBC (in units), 2 Units 2023-01-01 12:28:32 Test Item Value Reference [place] Interpretation Comments Cross Match Result Compatible (test code = 4409) ISBT Blood Type Code 9500 (test code = 943514) Unit Blood Type (test O Neg code = 4410) Unit Number (test [id number] code = 4411) Blood Expiration Date & Time (test code = 335211) Status Information Issued (test code = 4412) Product Red Blood Cells Identification (test code = 4413) Product Code (test I0028G91 Performed at [facility] code = 4414) Laboratory Services [facility] Blood [address] [place], [place] [address]Toll Free: [phone] A No. [id number] [facility] Packed RBC (in units), 2 Units 2023-01-01 12:28:32 Test Item Value Reference [place] Interpretation Comments Cross Match Result Compatible (test code = 4409) ISBT Blood Type Code 9500 (test code = 017501) Unit Blood Type (test O Neg code = 4410) Unit Number (test [id number] code = 4411) Blood Expiration Date 443870252201 & Time (test code = 649759) Status Information Issued (test code = 4412) Product Red Blood Cells Identification (test code = 4413) Product Code (test T8334G77 Performed at [facility] code = 4414) Laboratory [facility] Blood [place] [address]Toll Free: [phone] A No. [id number] [facility] Packed RBC (in units), 1 Units 2023-01-01 11:08:21 Test Item Value Reference [place] Interpretation Comments Cross Match Result Compatible (test code = 4409) ISBT Blood Type Code 9500 (test code = 357950) Unit Blood Type (test O Neg code = 4410) Unit Number (test [id number] code = 4411) Blood Expiration Date & Time (test code = 535825) Status Information Issued (test code = 4412) Product Red Blood Cells Identification (test code = 4413) Product Code (test O2689B81 Performed at [facility] code = 4414) Laboratory Services - [facility] Blood [address] [place] [address]Lofc Free: [phone] A No. [id number] [facility] Packed RBC (in units), 1 Units 2023-01-01 11:08:21 Test Item Value Reference [place] Interpretation Comments Cross Match Result Compatible (test code = 4409) ISBT Blood Type Code 9500 (test code = 438460) Unit Blood Type (test O Neg code = 4410) Unit Number (test [id number] code = 4411) Blood Expiration Date & Time (test code = 958215) Status Information Issued (test code = 4412) Product Red Blood Cells Identification (test code = 4413) Product Code (test T3753A71 Performed at [facility] code = 4414) Laboratory Services - [facility] Blood [address] [place] [address]Ojvw Free: [phone] A No. [id number] [facility]woodFERRITIN [id number] 21:19:57 Test Item Value Reference [place] Interpretation Comments FERRITIN (test code = 4.2 ng/mL 6.0-137.0 L 0092651667) CIERA (test code = CIERA) Biotin has been reported to cause a negative bias, interpret results relative to patient's use of biotin. Lab Interpretation (test Abnormal code = 20507-1) [facility] [id number] 21:19:57 Test Item Value Reference [place] Interpretation Comments FERRITIN (test code = 4.2 ng/mL 6.0-137.0 L 8752801314) CIERA (test code = CIERA) Biotin has been reported to cause a negative bias, interpret results relative to patient's use of biotin. Lab Interpretation (test Abnormal code = 76086-1) [place] [id number] 20:30:30 Test Item Value Reference [place] Interpretation Comments IRON (test code = 2683576634) 115 ug/dL 50-160 Lab Interpretation (test code = Normal 10648-8) [place] [id number] 20:30:30 Test Item Value Reference [place] Interpretation Comments IRON (test code = 8556203507) 115 ug/dL 50-160 Lab Interpretation (test code = Normal 84268-8) [facility] METABOLIC PANEL (NA, K, CL, CO2, GLUCOSE, BUN, CREATININE, CA)2022-12-31 11:39:33 Test Item Value Reference [place] Interpretation Comments NA (test code = 137 mmol/L 135-145 2931481581) K (test code = 3.7 mmol/L 3.5-5.0 5496761062) CL (test code = 110 mmol/L 98-108 H 2096123950) CO2 TOTAL (test code = 26 mmol/L 23-31 1400601558) AGAP (test code = 1 2-16 L 8800232424) BUN (test code = 7 mg/dL 7-23 7252344014) GLUCOSE (test code = 104 mg/dL 70-110 0862760693) CREATININE (test code = 0.44 mg/dL 0.50-1.04 L 5547344272) CALCIUM (test code = 7.0 mg/dL 8.6-10.6 L 7041029023) eGFR (test code = 156.1 mL/min/1.73m2 [id number]) CIERA (test code = CIERA) Association of Glomerular Filtration Rate (GFR) and Staging of Kidney Disease* + --+ --+ ------+| GFR (mL/min/1.73 m2) ?| With Kidney Damage ?| ?Without Kidney Damage+ --------+ --------+ +| ?>90 ?| ?Stage one ?| ? Normal ?+ ---+ ---+ -------+| ?60-89 ?| ?Stage two ?| ? Decreased GFR ? + --+ --+ ------+| ?30-59 ?| ?Stage three ?| ? Stage three ? + --+ --+ ------+| ?15-29 ?| ?Stage four ? | ? Stage four ?+ ---+ ---+ -------+| ?<15 (or dialysis) ? ?| ?Stage five ? | ? Stage five ?+ ---+ ---+ -------+ *Each stage assumes the associated GFR level has been in effect for at least three months. ?Stages 1 to 5, with or without kidney disease, indicate chronic kidney disease. Notes: Determination of stages one and two (with eGFR >59mL/min/1.73 m2) requires estimation of kidney damage for at least three months as defined by structural or functional abnormalities of the kidney, manifested by either:Pathological abnormalities or Markers of kidney damage (including abnormalities in the composition of the blood or urine or abnormalities in imaging tests). Lab Interpretation Abnormal (test code = 91164-9) [facility] 11:39:33 Test Item Value Reference Range Interpretation Comments MAGNESIUM (test code = 0689050332) 2.2 mg/dL 1.7-2.4 Lab Interpretation (test code = Normal 24645-4) [facility] 11:39:33 Test Item Value Reference Range Interpretation Comments PHOSPHORUS (test code = 2607731916) 3.2 mg/dL 2.5-5.0 Lab Interpretation (test code = Normal 47905-8) [facility] (NA, K, CL, CO2, GLUCOSE, BUN, CREATININE, CA)2022-12-31 11:39:33 Test Item Value Reference Range Interpretation Comments NA (test code = 137 mmol/L 135-145 7343957044) K (test code = 3.7 mmol/L 3.5-5.0 3802179324) CL (test code = 110 mmol/L 98-108 H 1587367195) CO2 TOTAL (test code = 26 mmol/L 23-31 8637144991) AGAP (test code = 1 2-16 L 0441035582) BUN (test code = 7 mg/dL 7-23 5371607071) GLUCOSE (test code = 104 mg/dL 70-110 7845508005) CREATININE (test code = 0.44 mg/dL 0.50-1.04 L 4503830998) CALCIUM (test code = 7.0 mg/dL 8.6-10.6 L 0228159126) eGFR (test code = 156.1 mL/min/1.73m2 3153499312) CIERA (test code = CIERA) Association of Glomerular Filtration Rate (GFR) and Staging of Kidney Disease* + --+ --+ ------+| GFR (mL/min/1.73 m2) ?| With Kidney Damage ?| ?Without Kidney Damage+ --------+ --------+ +| ?>90 ?| ?Stage one ?| ? Normal ?+ ---+ ---+ -------+| ?60-89 ?| ?Stage two ?| ? Decreased GFR ? + --+ --+ ------+| ?30-59 ?| ?Stage three ?| ? Stage three ? + --+ --+ ------+| ?15-29 ?| ?Stage four ? | ? Stage four ?+ ---+ ---+ -------+| ?<15 (or dialysis) ? ?| ?Stage five ? | ? Stage five ?+ ---+ ---+ -------+ *Each stage assumes the associated GFR level has been in effect for at least three months. ?Stages 1 to 5, with or without kidney disease, indicate chronic kidney disease. Notes: Determination of stages one and two (with eGFR >59mL/min/1.73 m2) requires estimation of kidney damage for at least three months as defined by structural or functional abnormalities of the kidney, manifested by either:Pathological abnormalities or Markers of kidney damage (including abnormalities in the composition of the blood or urine or abnormalities in imaging tests). Lab Interpretation Abnormal (test code = 20044-2) [facility] 11:39:33 Test Item Value Reference Range Interpretation Comments MAGNESIUM (test code = 3480420586) 2.2 mg/dL 1.7-2.4 Lab Interpretation (test code = Normal 00285-4) [facility]20 11:39:33 Test Item Value Reference Range Interpretation Comments PHOSPHORUS (test code = 5927391264) 3.2 mg/dL 2.5-5.0 Lab Interpretation (test code = Normal 09867-4) [facility] WITH [id number] 11:12:50 Test Item Value Reference Range Interpretation Comments WBC (test code = 7.20 See_Comment [Automated 5066-2) message] The sy stem which generated this result transmitted reference range : 4.30 - 11.10 10*3/?L. The reference range was not used to interpret this result as normal/abnormal . RBC (test code = 2.97 See_Comment L [Automated 357-5) message] The sy stem which generated this result transmitted reference range : 3.93 - 5.25 10*6/?L. The reference range was not used to interpret this result as normal/abnormal . HGB (test code = 7.7 g/dL 11.6-15.0 L 718-7) HCT (test code = 23.7 % 35.7-45.2 L 4544-3) MCV (test code = 79.8 fL 80.6-95.5 L 787-2) MCH (test code = 25.9 pg 25.9-32.8 785-6) MCHC (test code = 32.5 g/dL 31.6-35.1 786-4) RDW-SD (test code = 44.3 fL 39.0-49.9 51242-3) RDW-CV (test code = 15.4 % 12.0-15.5 788-0) PLT (test code = 321 See_Comment [Automated 777-3) message] The sy stem which generated this result transmitted reference range : 166 - 358 10*3/ ?L. The reference r susana was not used to interpret this result as normal/abnormal . MPV (test code = 10.1 fL 9.5-12.9 14338-0) NRBC/100 WBC (test 0.0 See_Comment [Automat ed code = 9807653466) message] The system which generated this result transmitted reference range : 0.0 - 10.0 /100 WBCs. The refer ence range was not u sed to interpret th is result as normal/abnormal . NRBC x10^3 (test code See_Comment [Auto mated = 5607512805) message] The s ystem which generated this result transmitted reference range : 10*3/?L. The reference range was not used to interpret this result as normal/abnormal . GRAN MAT (NEUT) % 62.8 % (test code = 770-8) IMM GRAN % (test code 0.30 % = 9859392644) LYMPH % (test code = 27.1 % 736-9) MONO % (test code = 7.8 % 5905-5) EOS % (test code = 1.3 % 713-8) BASO % (test code = 0.7 % 706-2) GRAN MAT x10^3(ANC) 4.53 10*3/uL 1.88-7.09 (test code = 0313238001) IMM GRAN x10^3 (test 0.00-0.06 code = 9226200662) LYMPH x10^3 (test code 1.95 10*3/uL 1.32-3.29 = 731-0) MONO x10^3 (test code 0.56 10*3/uL 0.33-0.92 = 742-7) EOS x10^3 (test code = 0.09 10*3/uL 0.03-0.39 711-2) BASO x10^3 (test code 0.05 10*3/uL 0.01-0.07 = 704-7) Lab Interpretation Abnormal (test code = 03934-0) [facility] WITH [id number] 11:12:50 Test Item Value Reference Range Interpretation Comments WBC (test code = 7.20 See_Comment [Automated 6170-2) message] The sy stem which generated this result transmitted reference range : 4.30 - 11.10 10*3/?L. The reference range was not used to interpret this result as normal/abnormal . RBC (test code = 2.97 See_Comment L [Automated 419-8) message] The sy stem which generated this result transmitted reference range : 3.93 - 5.25 10*6/?L. The reference range was not used to interpret this result as normal/abnormal . HGB (test code = 7.7 g/dL 11.6-15.0 L 718-7) HCT (test code = 23.7 % 35.7-45.2 L 4544-3) MCV (test code = 79.8 fL 80.6-95.5 L 787-2) MCH (test code = 25.9 pg 25.9-32.8 785-6) MCHC (test code = 32.5 g/dL 31.6-35.1 786-4) RDW-SD (test code = 44.3 fL 39.0-49.9 53295-3) RDW-CV (test code = 15.4 % 12.0-15.5 788-0) PLT (test code = 321 See_Comment [Automated 157-3) message] The sy stem which generated this result transmitted reference range : 166 - 358 10*3/ ?L. The reference r susana was not used to interpret this result as normal/abnormal . MPV (test code = 10.1 fL 9.5-12.9 41671-6) NRBC/100 WBC (test 0.0 See_Comment [Automat ed code = 2446831025) message] The system which generated this result transmitted reference range : 0.0 - 10.0 /100 WBCs. The refer ence range was not u sed to interpret th is result as normal/abnormal . NRBC x10^3 (test code See_Comment [Auto mated = 2598295862) message] The s ystem which generated this result transmitted reference range : 10*3/?L. The reference range was not used to interpret this result as normal/abnormal . GRAN MAT (NEUT) % 62.8 % (test code = 770-8) IMM GRAN % (test code 0.30 % = 5991921610) LYMPH % (test code = 27.1 % 736-9) MONO % (test code = 7.8 % 5905-5) EOS % (test code = 1.3 % 713-8) BASO % (test code = 0.7 % 706-2) GRAN MAT x10^3(ANC) 4.53 10*3/uL 1.88-7.09 (test code = 1626779905) IMM GRAN x10^3 (test 0.00-0.06 code = 1895099775) LYMPH x10^3 (test code 1.95 10*3/uL 1.32-3.29 = 731-0) MONO x10^3 (test code 0.56 10*3/uL 0.33-0.92 = 742-7) EOS x10^3 (test code = 0.09 10*3/uL 0.03-0.39 711-2) BASO x10^3 (test code 0.05 10*3/uL 0.01-0.07 = 704-7) Lab Interpretation Abnormal (test code = 85365-4) [facility] (in units), 1 Units 2022-12-31 05:50:01 Test Item Value Reference Range Interpretation Comments Cross Match Result Compatible (test code = 4409) ISBT Blood Type Code 9500 (test code = 012126) Unit Blood Type (test O Neg code = 4410) Unit Number (test [id number] code = 4411) Blood Expiration Date & Time (test code = 534063) Status Information Issued (test code = 4412) Product Red Blood Cells Identification (test code = 4413) Product Code (test V6247Y68 Performed at [facility] code = 4414) Laboratory Services [facility] Blood [address] [address]Xbot Free: [phone] A No. [id number] [facility] Packed RBC (in units), 1 Units 2022-12-31 05:50:01 Test Item Value Reference Range Interpretation Comments Cross Match Result Compatible (test code = 4409) ISBT Blood Type Code 9500 (test code = 868370) Unit Blood Type (test O Neg code = 4410) Unit Number (test [id number] code = 4411) Blood Expiration Date & Time (test code = 991762) Status Information Issued (test code = 4412) Product Red Blood Cells Identification (test code = 4413) Product Code (test L2794U45 Performed at [facility] code = 4414) Laboratory Services [facility] Blood [address] [address]Ljio Free: [phone] A No. [id number] [facility] Met[facility] (NA, K, CL, CO2, Glucose, BUN, Creatinine, CA)2022-12-31 05:05:10 Test Item Value Reference Range Interpretation Comments NA (test code = 136 mmol/L 135-145 7363885833) K (test code = 3.4 mmol/L 3.5-5.0 L 3449901560) CL (test code = 109 mmol/L 98-108 H 1923210889) CO2 TOTAL (test code = 26 mmol/L 23-31 4222846612) AGAP (test code = 1 2-16 L 3824952004) BUN (test code = 9 mg/dL 7-23 4671198340) GLUCOSE (test code = 98 mg/dL 70-110 6912162762) CREATININE (test code = 0.46 mg/dL 0.50-1.04 L 7815472859) CALCIUM (test code = 7.3 mg/dL 8.6-10.6 L 3060258617) eGFR (test code = 148.3 mL/min/1.73m2 3720796130) CIERA (test code = CIERA) Association of Glomerular Filtration Rate (GFR) and Staging of Kidney Disease* + --+ --+ ------+| GFR (mL/min/1.73 m2) ?| With Kidney Damage ?| ?Without Kidney Damage+ --------+ --------+ +| ?>90 ?| ?Stage one ?| ? Normal ?+ ---+ ---+ -------+| ?60-89 ?| ?Stage two ?| ? Decreased GFR ? + --+ --+ ------+| ?30-59 ?| ?Stage three ?| ? Stage three ? + --+ --+ ------+| ?15-29 ?| ?Stage four ? | ? Stage four ?+ ---+ ---+ -------+| ?<15 (or dialysis) ? ?| ?Stage five ? | ? Stage five ?+ ---+ ---+ -------+ *Each stage assumes the associated GFR level has been in effect for at least three months. ?Stages 1 to 5, with or without kidney disease, indicate chronic kidney disease. Notes: Determination of stages one and two (with eGFR >59mL/min/1.73 m2) requires estimation of kidney damage for at least three months as defined by structural or functional abnormalities of the kidney, manifested by either:Pathological abnormalities or Markers of kidney damage (including abnormalities in the composition of the blood or urine or abnormalities in imaging tests). Lab Interpretation Abnormal (test code = 68252-9) [facility]wood[facility] [id number] 05:05:10 Test Item Value Reference Range Interpretation Comments MAGNESIUM (test code = 4332730039) 1.5 mg/dL 1.7-2.4 L Lab Interpretation (test code = Abnormal 17632-8) [facility]woodPhosph[facility] [id number] 05:05:10 Test Item Value Reference Range Interpretation Comments PHOSPHORUS (test code = 6053863051) 2.2 mg/dL 2.5-5.0 L Lab Interpretation (test code = Abnormal 44725-5) [facility] Metabolic Panel (NA, K, CL, CO2, Glucose, BUN, Creatinine, CA)2022-12-31 05:05:10 Test Item Value Reference Range Interpretation Comments NA (test code = 136 mmol/L 135-145 7562503841) K (test code = 3.4 mmol/L 3.5-5.0 L 1170408041) CL (test code = 109 mmol/L 98-108 H 9622514416) CO2 TOTAL (test code = 26 mmol/L 23-31 4858924627) AGAP (test code = 1 2-16 L 8020521499) BUN (test code = 9 mg/dL 7-23 0381895730) GLUCOSE (test code = 98 mg/dL 70-110 6181567517) CREATININE (test code = 0.46 mg/dL 0.50-1.04 L 9871919611) CALCIUM (test code = 7.3 mg/dL 8.6-10.6 L 5072565302) eGFR (test code = 148.3 mL/min/1.73m2 2859113222) CIERA (test code = CIERA) Association of Glomerular Filtration Rate (GFR) and Staging of Kidney Disease* + --+ --+ ------+| GFR (mL/min/1.73 m2) ?| With Kidney Damage ?| ?Without Kidney Damage+ --------+ --------+ +| ?>90 ?| ?Stage one ?| ? Normal ?+ ---+ ---+ -------+| ?60-89 ?| ?Stage two ?| ? Decreased GFR ? + --+ --+ ------+| ?30-59 ?| ?Stage three ?| ? Stage three ? + --+ --+ ------+| ?15-29 ?| ?Stage four ? | ? Stage four ?+ ---+ ---+ -------+| ?<15 (or dialysis) ? ?| ?Stage five ? | ? Stage five ?+ ---+ ---+ -------+ *Each stage assumes the associated GFR level has been in effect for at least three months. ?Stages 1 to 5, with or without kidney disease, indicate chronic kidney disease. Notes: Determination of stages one and two (with eGFR >59mL/min/1.73 m2) requires estimation of kidney damage for at least three months as defined by structural or functional abnormalities of the kidney, manifested by either:Pathological abnormalities or Markers of kidney damage (including abnormalities in the composition of the blood or urine or abnormalities in imaging tests). Lab Interpretation Abnormal (test code = 09968-5) [facility]wood[facility] [id number] 05:05:10 Test Item Value Reference Range Interpretation Comments MAGNESIUM (test code = 4510432302) 1.5 mg/dL 1.7-2.4 L Lab Interpretation (test code = Abnormal 05197-2) [facility]woodPhosph[facility] [id number] 05:05:10 Test Item Value Reference Range Interpretation Comments PHOSPHORUS (test code = 9398017474) 2.2 mg/dL 2.5-5.0 L Lab Interpretation (test code = Abnormal 30128-5) [facility]woodProthrombin Time (PT) / [id number] 04:52:12 Test Item Value Reference Range Interpretation Comments PROTIME PATIENT (test 14.6 See_Comment H [Auto mated message] code = 5964-2) The system [employer] generated this result transmitted ref erence range: 10.1 - 1 2.6 Seconds. The reference range was not used to int erpret this result as normal/abnormal . INR (test code = 6301-6) 1.3 Nor mal INR <1.1; Warfarin Therap eutic range 2.0 to 3. 0 or 2.5 to 3.5, dep ending upon the indica tions. Lab Interpretation (test Abnormal code = 47249-7) [facility]woodaPTT2023-03-20 04:52:12 Test Item Value Reference Range Interpretation Comments APTT Patient (test code = 27 See_Comment [ Automated message] 3173-2) The system [employer] generated this result transmitted ref erence range: 26 - 36 Seconds. The re ference range was not u sed to interpret this result as normal/abnor mal. Lab Interpretation (test Normal code = 99511-6) [facility]woodProthrombin Time (PT) / [id number] 04:52:12 Test Item Value Reference Range Interpretation Comments PROTIME PATIENT (test 14.6 See_Comment H [Auto mated message] code = 5964-2) The system ich generated this result transmitted ref erence range: 10.1 - 1 2.6 Seconds. The reference range was not used to int erpret this result as normal/abnormal . INR (test code = 6301-6) 1.3 Nor mal INR <1.1; Warfarin Therap eutic range 2.0 to 3. 0 or 2.5 to 3.5, dep ending upon the indica tions. Lab Interpretation (test Abnormal code = 82968-4) [facility]2023-[facility]-20 04:52:12 Test Item Value Reference Range Interpretation Comments APTT Patient (test code = 27 See_Comment [ Automated message] 6013-2) The system [employer] h generated this result transmitted ref erence range: 26 - 36 Seconds. The re ference range was not u sed to interpret this result as normal/abnor mal. Lab Interpretation (test Normal code = 93439-8) [facility] with [id number] 04:43:10 Test Item Value Reference Range Interpretation Comments WBC (test code = 7.56 See_Comment [Automated 9890-2) message] The sy stem which generated this result transmitted reference range : 4.30 - 11.10 10*3/?L. The reference range was not used to interpret this result as normal/abnormal . RBC (test code = 2.67 See_Comment L [Automated 709-8) message] The sy stem which generated this result transmitted reference range : 3.93 - 5.25 10*6/?L. The reference range was not used to interpret this result as normal/abnormal . HGB (test code = 6.6 g/dL 11.6-15.0 L 718-7) HCT (test code = 21.5 % 35.7-45.2 L 4544-3) MCV (test code = 80.5 fL 80.6-95.5 L 787-2) MCH (test code = 24.7 pg 25.9-32.8 L 785-6) MCHC (test code = 30.7 g/dL 31.6-35.1 L 786-4) RDW-SD (test code = 45.2 fL 39.0-49.9 68160-6) RDW-CV (test code = 15.6 % 12.0-15.5 H 788-0) PLT (test code = 389 See_Comment H [Automated 777-3) message] The sy stem which generated this result transmitted reference range : 166 - 358 10*3/ ?L. The reference r susana was not used to interpret this result as normal/abnormal . MPV (test code = 10.4 fL 9.5-12.9 40547-6) NRBC/100 WBC (test 0.0 See_Comment [Automat ed code = 7878895935) message] The system which generated this result transmitted reference range : 0.0 - 10.0 /100 WBCs. The refer ence range was not u sed to interpret th is result as normal/abnormal . NRBC x10^3 (test code See_Comment [Auto mated = 6943847000) message] The s ystem which generated this result transmitted reference range : 10*3/?L. The reference range was not used to interpret this result as normal/abnormal . GRAN MAT (NEUT) % 71.0 % (test code = 770-8) IMM GRAN % (test code 0.30 % = 1528405322) LYMPH % (test code = 23.3 % 736-9) MONO % (test code = 4.6 % 5905-5) EOS % (test code = 0.4 % 713-8) BASO % (test code = 0.4 % 706-2) GRAN MAT x10^3(ANC) 5.37 10*3/uL 1.88-7.09 (test code = 3599247465) IMM GRAN x10^3 (test 0.00-0.06 code = 9206526135) LYMPH x10^3 (test code 1.76 10*3/uL 1.32-3.29 = 731-0) MONO x10^3 (test code 0.35 10*3/uL 0.33-0.92 = 742-7) EOS x10^3 (test code = 0.03 10*3/uL 0.03-0.39 711-2) BASO x10^3 (test code 0.03 10*3/uL 0.01-0.07 = 704-7) Lab Interpretation Abnormal (test code = 07652-8) [facility] with [id number] 04:43:10 Test Item Value Reference Range Interpretation Comments WBC (test code = 7.56 See_Comment [Automated 6690-2) message] The sy stem which generated this result transmitted reference range : 4.30 - 11.10 10*3/?L. The reference range was not used to interpret this result as normal/abnormal . RBC (test code = 2.67 See_Comment L [Automated 789-8) message] The sy stem which generated this result transmitted reference range : 3.93 - 5.25 10*6/?L. The reference range was not used to interpret this result as normal/abnormal . HGB (test code = 6.6 g/dL 11.6-15.0 L 718-7) HCT (test code = 21.5 % 35.7-45.2 L 4544-3) MCV (test code = 80.5 fL 80.6-95.5 L 787-2) MCH (test code = 24.7 pg 25.9-32.8 L 785-6) MCHC (test code = 30.7 g/dL 31.6-35.1 L 786-4) RDW-SD (test code = 45.2 fL 39.0-49.9 78164-7) RDW-CV (test code = 15.6 % 12.0-15.5 H 788-0) PLT (test code = 389 See_Comment H [Automated 777-3) message] The sy stem which generated this result transmitted reference range : 166 - 358 10*3/ ?L. The reference r susana was not used to interpret this result as normal/abnormal . MPV (test code = 10.4 fL 9.5-12.9 82750-5) NRBC/100 WBC (test 0.0 See_Comment [Automat ed code = 5007153274) message] The system which generated this result transmitted reference range : 0.0 - 10.0 /100 WBCs. The refer ence range was not u sed to interpret th is result as normal/abnormal . NRBC x10^3 (test code See_Comment [Auto mated = 3296176846) message] The s Ve[employer] which generated this result transmitted reference range : 10*3/?L. The reference range was not used to interpret this result as normal/abnormal . GRAN MAT (NEUT) % 71.0 % (test code = 770-8) IMM GRAN % (test code 0.30 % = 6082282680) LYMPH % (test code = 23.3 % 736-9) MONO % (test code = 4.6 % 5905-5) EOS % (test code = 0.4 % 713-8) BASO % (test code = 0.4 % 706-2) GRAN MAT x10^3(ANC) 5.37 10*3/uL 1.88-7.09 (test code = 8091951742) IMM GRAN x10^3 (test 0.00-0.06 code = 1416431484) LYMPH x10^3 (test code 1.76 10*3/uL 1.32-3.29 = 731-0) MONO x10^3 (test code 0.35 10*3/uL 0.33-0.92 = 742-7) EOS x10^3 (test code = 0.03 10*3/uL 0.03-0.39 711-2) BASO x10^3 (test code 0.03 10*3/uL 0.01-0.07 = 704-7) Lab Interpretation Abnormal (test code = 60370-3) [facility]wood[facility] - ONCE [id number] 01:02:00 Test Item Value Reference Range Interpretation Comments ABO & RH (test code = 20) O Negative IAT (test code = 1185) Negative [facility]wood[facility] - ONCE [id number] 01:02:00 Test Item Value Reference Range Interpretation Comments ABO & RH (test code = 20) O Negative IAT (test code = 1185) Negative [facility]woodPOCT [id number] 00:56:00 Test Item Value Reference Range Interpretation Comments POCT PREG (test code = 1605) Negative On board controls acceptable with Present C Line (test code = 3574) POCT PREG LOT # (test code = 3575) [id number] POCT PREG TEST DATE (test 05/31/24 code = 3576) Lab Interpretation (test code = Normal 51927-1) [facility]woodPO[facility] [id number] 00:56:00 Test Item Value Reference Range Interpretation Comments POCT PREG (test code = 1605) Negative On board controls acceptable with Present C Line (test code = 3574) POCT PREG LOT # (test code = 3575) [id number] POCT PREG TEST DATE (test 03/13/24 code = 3576) Lab Interpretation (test code = Normal 96755-3) [facility]woodLIP[facility]2023-[facility]-20 00:31:59 Test Item Value Reference Range Interpretation Comments LIPASE (test code = 9178340943) 51 U/L 0-220 Lab Interpretation (test code = Normal 06355-1) [facility]woodL[facility]2023-[facility]-20 00:31:59 Test Item Value Reference Range Interpretation Comments LIPASE (test code = 4718080089) 51 U/L 0-220 Lab Interpretation (test code = Normal 55615-2) [facility] KingwoodCOM. METABOLIC PANEL (55256)2022-12-31 00:10:38 Test Item Value Reference Range Interpretation Comments NA (test code = 136 mmol/L 135-145 6723751346) K (test code = 4.2 mmol/L 3.5-5.0 0257537821) CL (test code = 102 mmol/L 98-108 6643833022) CO2 TOTAL (test code = 23 mmol/L 23-31 8637026055) AGAP (test code = 11 2-16 8223233296) BUN (test code = 13 mg/dL 7-23 1482037236) GLUCOSE (test code = 111 mg/dL 70-110 H 4880364413) CREATININE (test code = 0.51 mg/dL 0.50-1.04 7928678778) TOTAL BILI (test code = 0.4 mg/dL 0.1-1.6 2235111493) CALCIUM (test code = 9.0 mg/dL 8.6-10.6 8067497632) T PROTEIN (test code = 6.8 g/dL 6.3-8.2 0618326526) ALBUMIN (test code = 3.8 g/dL 3.5-5.0 8200115649) ALK PHOS (test code = 100 U/L 34-122 7984056121) ALTv (test code = 12 U/L 5-35 1742-6) AST(SGOT) (test code = 17 U/L 13-40 5863278994) eGFR (test code = 131.6 mL/min/1.73m2 5766097641) CIERA (test code = CIERA) Association of Glomerular Filtration Rate (GFR) and Staging of Kidney Disease* + --+ --+ ------+| GFR (mL/min/1.73 m2) ?| With Kidney Damage ?| ?Without Kidney Damage+ --------+ --------+ +| ?>90 ?| ?Stage one ?| ? Normal ?+ ---+ ---+ -------+| ?60-89 ?| ?Stage two ?| ? Decreased GFR ? + --+ --+ ------+| ?30-59 ?| ?Stage three ?| ? Stage three ? + --+ --+ ------+| ?15-29 ?| ?Stage four ? | ? Stage four ?+ ---+ ---+ -------+| ?<15 (or dialysis) ? ?| ?Stage five ? | ? Stage five ?+ ---+ ---+ -------+ *Each stage assumes the associated GFR level has been in effect for at least three months. ?Stages 1 to 5, with or without kidney disease, indicate chronic kidney disease. Notes: Determination of stages one and two (with eGFR >59mL/min/1.73 m2) requires estimation of kidney damage for at least three months as defined by structural or functional abnormalities of the kidney, manifested by either:Pathological abnormalities or Markers of kidney damage (including abnormalities in the composition of the blood or urine or abnormalities in imaging tests). Lab Interpretation Abnormal (test code = 14943-8) [facility] [place]20 00:10:38 Test Item Value Reference Range Interpretation Comments MAGNESIUM (test code = 3503201212) 1.5 mg/dL 1.7-2.4 L Lab Interpretation (test code = Abnormal 70766-3) [facility]. METABOLIC PANEL (66085)2022-12-31 00:10:38 Test Item Value Reference Range Interpretation Comments NA (test code = 136 mmol/L 135-145 5355868416) K (test code = 4.2 mmol/L 3.5-5.0 0367313655) CL (test code = 102 mmol/L 98-108 6125705658) CO2 TOTAL (test code = 23 mmol/L 23-31 3891246487) AGAP (test code = 11 2-16 0360601016) BUN (test code = 13 mg/dL 7-23 5340799018) GLUCOSE (test code = 111 mg/dL 70-110 H 3496668916) CREATININE (test code = 0.51 mg/dL 0.50-1.04 1936086218) TOTAL BILI (test code = 0.4 mg/dL 0.1-1.8 1571692261) CALCIUM (test code = 9.0 mg/dL 8.6-10.6 0315407381) T PROTEIN (test code = 6.8 g/dL 6.3-8.2 8931374249) ALBUMIN (test code = 3.8 g/dL 3.5-5.0 0096253255) ALK PHOS (test code = 100 U/L 34-122 4200569313) ALTv (test code = 12 U/L 5-35 1742-6) AST(SGOT) (test code = 17 U/L 13-40 5485250640) eGFR (test code = 131.6 mL/min/1.73m2 5317008546) CIERA (test code = CIERA) Association of Glomerular Filtration Rate (GFR) and Staging of Kidney Disease* + --+ --+ ------+| GFR (mL/min/1.73 m2) ?| With Kidney Damage ?| ?Without Kidney Damage+ --------+ --------+ +| ?>90 ?| ?Stage one ?| ? Normal ?+ ---+ ---+ -------+| ?60-89 ?| ?Stage two ?| ? Decreased GFR ? + --+ --+ ------+| ?30-59 ?| ?Stage three ?| ? Stage three ? + --+ --+ ------+| ?15-29 ?| ?Stage four ? | ? Stage four ?+ ---+ ---+ -------+| ?<15 (or dialysis) ? ?| ?Stage five ? | ? Stage five ?+ ---+ ---+ -------+ *Each stage assumes the associated GFR level has been in effect for at least three months. ?Stages 1 to 5, with or without kidney disease, indicate chronic kidney disease. Notes: Determination of stages one and two (with eGFR >59mL/min/1.73 m2) requires estimation of kidney damage for at least three months as defined by structural or functional abnormalities of the kidney, manifested by either:Pathological abnormalities or Markers of kidney damage (including abnormalities in the composition of the blood or urine or abnormalities in imaging tests). Lab Interpretation Abnormal (test code = 97129-8) [facility] [place]2023-[facility]-20 00:10:38 Test Item Value Reference Range Interpretation Comments MAGNESIUM (test code = 9400940980) 1.5 mg/dL 1.7-2.4 L Lab Interpretation (test code = Abnormal 31722-7) [facility] WITH [id number] 23:56:38 Test Item Value Reference Range Interpretation Comments WBC (test code = 10.50 See_Comment [Automated 6690-2) message] The sy stem which generated this result transmitted reference range : 4.30 - 11.10 10*3/?L. The reference range was not used to interpret this result as normal/abnormal . RBC (test code = 2.62 See_Comment L [Automated 789-8) message] The sy stem which generated this result transmitted reference range : 3.93 - 5.25 10*6/?L. The reference range was not used to interpret this result as normal/abnormal . HGB (test code = 6.2 g/dL 11.6-15.0 L 718-7) HCT (test code = 20.7 % 35.7-45.2 L 4544-3) MCV (test code = 79.0 fL 80.6-95.5 L 787-2) MCH (test code = 23.7 pg 25.9-32.8 L 785-6) MCHC (test code = 30.0 g/dL 31.6-35.1 L 786-4) RDW-SD (test code = 46.9 fL 39.0-49.9 78038-1) RDW-CV (test code = 16.4 % 12.0-15.5 H 788-0) PLT (test code = 505 See_Comment H [Automated 777-3) message] The sy stem which generated this result transmitted reference range : 166 - 358 10*3/ ?L. The reference r susana was not used to interpret this result as normal/abnormal . MPV (test code = 10.7 fL 9.5-12.9 96169-5) NRBC/100 WBC (test 0.0 See_Comment [Automat ed code = 6428606499) message] The system which generated this result transmitted reference range : 0.0 - 10.0 /100 WBCs. The refer ence range was not u sed to interpret th is result as normal/abnormal . NRBC x10^3 (test code See_Comment [Auto mated = 5916496856) message] The s ystem which generated this result transmitted reference range : 10*3/?L. The reference range was not used to interpret this result as normal/abnormal . GRAN MAT (NEUT) % 77.8 % (test code = 770-8) IMM GRAN % (test code 0.40 % = 5573834502) LYMPH % (test code = 16.8 % 736-9) MONO % (test code = 4.0 % 5905-5) EOS % (test code = 0.5 % 713-8) BASO % (test code = 0.5 % 706-2) GRAN MAT x10^3(ANC) 8.18 10*3/uL 1.88-7.09 H (test code = 0312481798) IMM GRAN x10^3 (test 0.04 10*3/uL 0.00-0.06 code = 7032296800) LYMPH x10^3 (test code 1.76 10*3/uL 1.32-3.29 = 731-0) MONO x10^3 (test code 0.42 10*3/uL 0.33-0.92 = 742-7) EOS x10^3 (test code = 0.05 10*3/uL 0.03-0.39 711-2) BASO x10^3 (test code 0.05 10*3/uL 0.01-0.07 = 704-7) Lab Interpretation Abnormal (test code = 30221-6) [facility] WITH [id number] 23:56:38 Test Item Value Reference Range Interpretation Comments WBC (test code = 10.50 See_Comment [Automated 6690-2) message] The sy stem which generated this result transmitted reference range : 4.30 - 11.10 10*3/?L. The reference range was not used to interpret this result as normal/abnormal . RBC (test code = 2.62 See_Comment L [Automated 789-8) message] The sy stem which generated this result transmitted reference range : 3.93 - 5.25 10*6/?L. The reference range was not used to interpret this result as normal/abnormal . HGB (test code = 6.2 g/dL 11.6-15.0 L 718-7) HCT (test code = 20.7 % 35.7-45.2 L 4544-3) MCV (test code = 79.0 fL 80.6-95.5 L 787-2) MCH (test code = 23.7 pg 25.9-32.8 L 785-6) MCHC (test code = 30.0 g/dL 31.6-35.1 L 786-4) RDW-SD (test code = 46.9 fL 39.0-49.9 28932-7) RDW-CV (test code = 16.4 % 12.0-15.5 H 788-0) PLT (test code = 505 See_Comment H [Automated 777-3) message] The sy stem which generated this result transmitted reference range : 166 - 358 10*3/ ?L. The reference r susana was not used to interpret this result as normal/abnormal . MPV (test code = 10.7 fL 9.5-12.9 85016-6) NRBC/100 WBC (test 0.0 See_Comment [Automat ed code = 4479491362) message] The system which generated this result transmitted reference range : 0.0 - 10.0 /100 WBCs. The refer ence range was not u sed to interpret th is result as normal/abnormal . NRBC x10^3 (test code See_Comment [Auto mated = 4722797326) message] The s ystem which generated this result transmitted reference range : 10*3/?L. The reference range was not used to interpret this result as normal/abnormal . GRAN MAT (NEUT) % 77.8 % (test code = 770-8) IMM GRAN % (test code 0.40 % = 4524412976) LYMPH % (test code = 16.8 % 736-9) MONO % (test code = 4.0 % 5905-5) EOS % (test code = 0.5 % 713-8) BASO % (test code = 0.5 % 706-2) GRAN MAT x10^3(ANC) 8.18 10*3/uL 1.88-7.09 H (test code = 5861520610) IMM GRAN x10^3 (test 0.04 10*3/uL 0.00-0.06 code = 6845332979) LYMPH x10^3 (test code 1.76 10*3/uL 1.32-3.29 = 731-0) MONO x10^3 (test code 0.42 10*3/uL 0.33-0.92 = 742-7) EOS x10^3 (test code = 0.05 10*3/uL 0.03-0.39 711-2) BASO x10^3 (test code 0.05 10*3/uL 0.01-0.07 = 704-7) Lab Interpretation Abnormal (test code = 94329-2) [facility] WITH [id number] 21:11:40 Test Item Value Reference Range Interpretation Comments WBC (test code = See_Comment [Automated 6890-2) message] The sy stem which generated this result transmitted reference range : 4.30 - 11.10 10*3/?L. The reference range was not used to interpret this result as normal/abnormal . RBC (test code = See_Comment L [Automated 969-8) message] The sy stem which generated this result transmitted reference range : 3.93 - 5.25 10*6/?L. The reference range was not used to interpret this result as normal/abnormal . HGB (test code = 9.5 g/dL 11.6-15 L 718-7) HCT (test code = 32.6 % 35.7-45.2 L 4544-3) MCV (test code = 86.7 fL 80.6-95.5 787-2) MCH (test code = 25.3 pg 25.9-32.8 L 785-6) MCHC (test code = 29.1 g/dL 31.6-35.1 L 786-4) RDW-SD (test code = 77.1 fL 39-49.9 H 74281-7) RDW-CV (test code = 24.8 % 12-15.5 H 788-0) PLT (test code = See_Comment [Automated 777-3) message] The sy stem which generated this result transmitted reference range : 166 - 358 10*3/ ?L. The reference r susana was not used to interpret this result as normal/abnormal . MPV (test code = 10.0 fL 9.5-12.9 16188-0) NRBC/100 WBC (test See_Comment [Automat ed code = 5206023688) message] The system which generated this result transmitted reference range : 0.0 - 10.0 /100 WBCs. The refer ence range was not u sed to interpret th is result as normal/abnormal . NRBC x10^3 (test code See_Comment [Auto mated = 0449344422) message] The s ystem which generated this result transmitted reference range : 10*3/?L. The reference range was not used to interpret this result as normal/abnormal . GRAN MAT (NEUT) % 68.5 % (test code = 770-8) IMM GRAN % (test code 0.40 % = 5618937667) LYMPH % (test code = 21.3 % 736-9) MONO % (test code = 6.0 % 5905-5) EOS % (test code = 2.9 % 713-8) BASO % (test code = 0.9 % 706-2) GRAN MAT x10^3(ANC) 4.67 10*3/uL 1.88-7.09 (test code = 0341379557) IMM GRAN x10^3 (test 0.03 10*3/uL 0-0.06 code = 5714508292) LYMPH x10^3 (test code 1.45 10*3/uL 1.32-3.29 = 731-0) MONO x10^3 (test code 0.41 10*3/uL 0.33-0.92 = 742-7) EOS x10^3 (test code = 0.20 10*3/uL 0.03-0.39 711-2) BASO x10^3 (test code 0.06 10*3/uL 0.01-0.07 = 704-7) Lab Interpretation Abnormal (test code = 52264-4) [facility]"
[2023-03-03] MEDS ORDERED: Ringers Lactate 2,000 ML IV ONE (11:01)
[2023-03-03 11:11] LABS: Absolute Lymphocytes (CBC) 1.7 K/uL (0.7-4.9); Hematocrit 25.3 % (36.0-45.0); Lymphocytes % 8.3 % (15.3-44.8); MCV 80.4 fL (80-100); MPV 8.6 fL (7.6-11.3); RBC Red Blood Cell Count 3.15 M/uL (3.86-4.86)
[2023-03-03 11:20] LABS: Protime INR 1.74
[2023-03-03 11:20] LABS: Arterial Blood Carboxyhemoglob 1.4 % (0-1.5); Blood Gas Oxyhemoglobin 27.3 % (94-97); Blood O2 Saturation 28.3 % (92-98.5)
[2023-03-03 11:31] LABS: Albumin 2.4 g/dL (3.4-5.0); Bilirubin Total 0.1 mg/dL (0.2-1.0); Magnesium 2.2 mg/dL (1.6-2.4); Potassium 3.4 mEq/L (3.5-5.1); Protein, Total 6.3 g/dL (6.4-8.2)
[2023-03-03 11:32] LABS: Troponin High Sensitivity 64.8 pg/mL (<58.9)
--- NOTE | 2023-03-03 11:56 | RAD REPORT ---
EXAM DESCRIPTION: RAD - Chest Single View - 03/03/2023 11:44 am CLINICAL HISTORY: CVC Placement Chest pain. COMPARISON: <Comparisons> FINDINGS: Portable technique limits examination quality. There is very extensive bilateral airspace consolidation which may represent pulmonary edema or pneum onia. The heart is normal in size. No pneumothorax.Left-sided venous catheter likely has its tip a ju st entering the right atrium.
[2023-03-03] MEDS ORDERED: VANCOMYCIN 1 GM/VIAL ONE (12:02)
[2023-03-03] MEDS ORDERED: CEFEPIME 2 GM VIAL ONE (12:02)
[2023-03-03] MEDS ORDERED: NA CHLORIDE 0.9% 250 ML ONE (12:02)
[2023-03-03] MEDS ORDERED: NA CHLORIDE 0.9% 100 ML ONE (12:03)
[2023-03-03 12:10] LABS: Specific Gravity 1.015 (1.005-1.030)
[2023-03-03 12:13] LABS: Specific Gravity 1.015 (1.005-1.030); Urine Bacteria None Seen /HPF (<20); Urine Bilirubin NEGATIVE (Negative); Urine Blood Negative (Negative); Urine Clarity Clear (Clear); Urine Color Light-Yellow (Yellow); Urine Glucose NEGATIVE (Negative); Urine Mucus Slight /HPF (None Seen); Urine Protein 1+ (Negative); Urine RBC <5 /HPF (None Seen); Urine Urobilinogen Normal (Normal)
[2023-03-03 12:16] LABS: Barbiturates NEGATIVE (NEGATIVE); Benzodiazepines POSITIVE (NEGATIVE); Cocaine NEGATIVE (NEGATIVE); METHAMPHETAM NEGATIVE (NEGATIVE); Methadone NEGATIVE (NEGATIVE); Opiates POSITIVE (NEGATIVE); Phencyclidine NEGATIVE (NEGATIVE); THC Cannibis NEGATIVE (NEGATIVE)
[2023-03-03 12:21] LABS: Anisocytosis 1+; Blood Morphology Comment NOTED (NOT SEEN); Hypochromasia 1+; Platelet Estimate INCR; Polychromasia 1+
--- NOTE | 2023-03-03 12:51 | RAD REPORT ---
EXAM DESCRIPTION: CT - Head C Spine Cap Lei Whalen - 03/03/2023 12:36 pm CLINICAL HISTORY: Trauma, head and neck injury. Chest, abdomen and pelvis pain. Headache, Cachectic COMPARISON: <Comparisons> TECHNIQUE: CT head without contrast. CT cervical spine without contrast with coronal and sagittal reformatted images. CT chest, abdomen and pelvis with IV contrast (approximately 100 mL nonionic IV contrast) with elise l and sagittal reformatted images of the spine. All CT scans are performed using dose optimization technique as appropriate and may include automated exposure control or mA/KV adjustment according to patient size. FINDINGS: CT HEAD WITHOUT CONTRAST: No intracranial hemorrhage, hydrocephalus or extra-axial fluid collection. No areas of brain edema o r midline shift. The paranasal sinuses and mastoids are clear. The calvarium is intact. CT CERVICAL SPINE WITHOUT CONTRAST: No fracture or subluxation. Moderate lower cervical degenerative changes. The prevertebral soft tissu es are normal in thickness. CT CHEST, ABDOMEN, PELVIS WITH CONTRAST: There is severe bilateral lung consolidations.Heart size is normal.No pneumothorax or pericardial/ple ural fluid. No evidence of intra-abdominal visceral injury, free fluid or free air. Cholecystectomy. Mild peripor sita edema is seen in the liver parenchyma, nonspecific. Moderate stool retention throughout the colon. Small amount of free fluid in the pelvis No fractures. IMPRESSION: There is quite severe bilateral lung consolidations suggesting pulmonary edema or pneumo zarina.
[2023-03-03 13:11] LABS: SARS-CoV-2 Antigen Rapid Res Negative (Negative)
--- NOTE | 2023-03-03 13:38 | ER ---
Nurse's Notes [facility] Name: Ceci Ward Age: 42 yrs Sex: Female : 1980 Arrival Date: 03/03/2023 Time: 10:20 Bed 3 Private MD: Diagnosis: Severe sepsis with septic shock;Pneumonia, unspecified organism;Acute respiratory failure with hypoxia Presentation: 03/03 10:25 Chief complaint: Patient states: hard to breathe, hard to hear , weakness, since iw yesterday, her head hurts, her speech is slurred , not eating and drinking for past couple days , she has an stomach ulcer. 10:25 Method Of Arrival: Wheelchair iw 10:27 Coronavirus screen: At this time, the client does not indicate any symptoms associated iw with coronavirus-19. Ebola Screen: Patient negative for fever greater than or equal to 101.5 degrees Fahrenheit, and additional compatible Ebola Virus Disease symptoms Patient denies exposure to infectious person. Patient denies travel to an Ebola-affected area in the 21 days before illness onset. No symptoms or risks identified at this time. 10:27 Acuity: JES 2 iw 11:09 No acute neurological deficit is noted. Initial Sepsis Screen: Does the patient meet ll1 any 2 criteria? Mean Arterial Pressure (MAP) < 65. Altered Mental Status. HR > 90 bpm. Does the patient have a suspected source of infection? No. Patient's initial sepsis screen is negative. Risk Assessment: Do you want to hurt yourself or someone else? Patient reports no desire to harm self or others. Onset of symptoms was March 02, 2023. Triage Assessment: 11:10 General: Appears uncomfortable, ill, cachectic, Behavior is cooperative, listless, ll1 Reports feeling ill for fatigue for. Pain: Denies pain. EENT: Reports decreased hearing. Neuro: Reports dizziness, headache a syncopal episode weakness. Respiratory: Reports shortness of breath labored breathing. GI: Reports nausea, vomiting, blood in vomit. 11:17 The onset of the patients symptoms was more than six hours ago. 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 - Social history:: Smoking status: Patient reports the use of cigarette tobacco products, smokes two packs cigarettes per day. Screenin:09 [facility] ED Fall Risk Assessment (Adult) History of falling in the last 3 months, ll1 including since admission Yes- physiologic fall (2 pts) Confusion or Disorientation Yes (5 pts) Impaired Gait Yes (1 pt) Mobility Assist Device Used Yes (1 pt) Score/Fall Risk Level 3 or more points = High Risk Oriented to surroundings, Maintained a safe environment, Educated pt \T\ family on fall prevention, incl call for assistance when getting out of bed, Provided non-skid footwear, Hourly rounding (assess needs \T\ fall precautionary measures) done, Remained with patient while ambulating, Utilized family, sitter, or virtual case folder as indicated. Abuse screen: Denies threats or abuse. Nutritional screening: Had unintentional weight loss of 10 pounds or more. Has had N/V for 3 or more days Intervention for positive screen: ED Physician notified. Tuberculosis screening: No symptoms or risk factors identified. Assessment: 11:27 Reassessment: No changes from previously documented assessment. Patient and/or family ll1 updated on plan of care and expected duration. Pain level reassessed. 12:11 Reassessment: No changes from previously documented assessment. Patient and/or family ll1 updated on plan of care and expected duration. Pain level reassessed. 12:19 Reassessment: No changes from previously documented assessment. To CT via stretcher. ll1 12:55 Reassessment: No changes from previously documented assessment. Patient and/or family ll1 updated on plan of care and expected duration. Pain level reassessed. 13:19 Reassessment: No changes from previously documented assessment. Patient and/or family ll1 updated on plan of care and expected duration. Pain level reassessed. 13:59 Reassessment: No changes from previously documented assessment. Patient and/or family ll1 updated on plan of care and expected duration. Pain level reassessed. 14:35 Reassessment: No changes from previously documented assessment. Patient and/or family ll1 updated on plan of care and expected duration. Pain level reassessed. 14:52 Reassessment: No changes from previously documented assessment. repositioned up in ll1 stretcher. HOB elevated. 15:09 Reassessment: No changes from previously documented assessment. Patient and/or family ll1 updated on plan of care and expected duration. Pain level reassessed. Vital Signs: 10:27 BP 75 / 58; Pulse 99; Resp 28; Temp 97.3; iw 11:17 Pulse 96; Pulse Ox 71% on Non-rebreather mask; ll1 11:27 BP 144 / 113; Pulse 95; Resp 21; Pulse Ox 94% on Non-rebreather mask; ll1 12:02 BP 114 / 80; Pulse 98; Resp 21; Temp 88.1(Ca); Pulse Ox 97% ; ll1 12:11 BP 100 / 84; Pulse 103; Resp 22; Temp 92(Ca); Pulse Ox 86% on Non-rebreather mask; ll1 12:28 Weight 48.08 kg (R); ll1 12:55 BP 107 / 78; Pulse 100; Resp 22; Temp 93(Ca); Pulse Ox 85% on Non-rebreather mask; ll1 13:18 BP 118 / 76; Pulse 100; Resp 21; Temp 93.1; Pulse Ox 91% on BiPAP; ll1 13:57 BP 117 / 79; Pulse 100; Resp 22; Temp 93.2; Pulse Ox 100% ; ll1 14:34 BP 91 / 77; Pulse 100; Resp 22; Temp 91.1(Ca); Pulse Ox 84% on BiPAP; ll1 14:49 BP 103 / 52; Pulse 102; Resp 22; Temp 93.9(Ca); Pulse Ox 82% on BiPAP; ll1 15:08 Pulse 103; Resp 23; Temp 94.5(Ca); Pulse Ox 92% on BiPAP; ll1 15:19 BP 138 / 88; Pulse 103; Resp 22; Temp 95.1(Ca); Pulse Ox 94% ; ll1 15:52 BP 127 / 96; Pulse 113; Resp 22; Temp 96.6(Ca); Pulse Ox 96% on 100 lpm BiPAP; hb 16:24 BP 109 / 75; Pulse 111; Resp 20; Temp 97.9(Ca); Pulse Ox 95% on BiPAP; ll1 16:56 BP 111 / 86; Pulse 115; Resp 21; Temp 98.5; Pulse Ox 94% ; ll1 17:20 BP 132 / 90; Pulse 115; Resp 22; Temp 98.6(Ca); Pulse Ox 97% ; ll1 17:48 BP 117 / 59; Pulse 114; Resp 22; Pulse Ox 97% on Non-rebreather mask; ll1 13:18 Applied bear hugger, medium heat ll1 14:34 Bear hugger increased to high temp. ll1 16:24 Bear hugger turned off for now ll1 ED Course: 10:21 Patient arrived in ED. rg4 10:24 Fidel Apple MD is Attending Physician. rt 10:26 Triage completed. iw 10:28 Arm band placed on. iw 10:30 Cora Ryan, RUBA is Primary Nurse. ll1 10:30 Patient placed in an exam room, on a stretcher. ll1 10:45 Missed attempt(s): 22 gauge in right antecubital area. Bleeding controlled, band aid ll1 applied, catheter tip intact. 10:46 Missed attempt(s): 22 gauge in right shoulder. Bleeding controlled, band aid applied, ll1 catheter tip intact. 10:47 Inserted saline lock: 18 gauge in right EJ, using aseptic technique. Blood collected. ll1 by Dr. Apple. Oxygen administration via non-rebreather mask \T\ 15L/min. 11:00 Mathur cath inserted, using sterile technique, 16 Fr., by nc, balloon inflated, to ll1 gravity drainage, urine specimen collected. Patient tolerated well. 11:12 Patient has correct armband on for positive identification. Bed in low position. Call ll1 light in reach. Side rails up X2. Client placed on continuous cardiac and pulse oximetry monitoring. NIBP monitoring applied. hospital monitor on. 11:17 No provider procedures requiring assistance completed. ll1 11:46 Chest Single View XRAY In Process Unspecified. EDMS 11:54 Blood Culture Adult (2) Sent. eb 12:38 Head C Spine CAP W Con CT In Process Unspecified. EDMS 12:57 Influenza Screen (a \T\ B) Sent. ll1 12:57 SARS RAPID Sent. ll1 13:36 Aysha Arguello MD is Hospitalizing Provider. rt 17:55 Patient admitted, IV remains in place. ll1 Administered Medications: 11:08 Drug: Lactated Ringers Solution IV 2000 ml Route: IV; Rate: bolus; Site: right jugular; ll1 13:00 Follow up: Response: No adverse reaction; IV Status: Completed infusion; IV Intake: ll1 2000ml 12:02 Drug: Cefepime IVPB 2 grams Route: IVPB; Rate: 200 ml/hr; Infused Over: 30 mins; Site: ll1 Other; 12:57 Follow up: Response: No adverse reaction; IV Status: Completed infusion; IV Intake: ll1 100ml 12:57 Drug: vancoMYCIN IVPB 1 grams Route: IVPB; Infused Over: 2 hrs; Site: left jugular; ll1 15:02 Follow up: IV Status: Completed infusion; IV Intake: 250ml ll1 15:01 Drug: MethylPrednisoLONE IVP 125 mg Route: IVP; Site: left jugular; 1 17:55 Follow up: Response: No adverse reaction 1 15:06 Drug: DuoNeb Nebulize (3:1) (2.5 mg - 0.5 mg) 3 ml Route: Nebulizer; 1 17:55 Follow up: Response: No adverse reaction 1 Medication: 11:12 VIS not applicable for this client. 1 Point of Care Testing: Blood Glucose: 11:17 Blood Glucose: 235 mg/dL; 1 Ranges: Intake: 12:57 IV: 100ml; Total: 100ml. ll1 13:00 IV: 2000ml; Total: 2100ml. ll1 15:02 IV: 250ml; Total: 2350ml. 1 Outcome: 13:37 Decision to Hospitalize by Provider. rt 17:42 Patient left the ED. mm9 17:54 Admitted to ICU accompanied by nurse, via stretcher, room ICU 7, Report called to ll Jen Umanzor RN in ICU 17:54 Condition: stable 17:54 Instructed on the need for admit. Signatures: Dispatcher [employer] [facility] Bridgette Jane RN RN Shira Hoffman RN RN hb Garcia, Rubi rg4 Yvette Kulkarni Lynsay, RUBA RN ll1 Mercedes Da Silva mm9 Fidel Apple MD MD rt Corrections: (The following items were deleted from the chart) 10: 10:26 Home Meds: None; iw iw 10:28 10:25 Chief complaint: Patient states: hard to breathe, hard to hear , weakness, since iw yesterday iw 11:10 10:25 Acuity: JES 3 iw ll1 11:17 10:27 BP 75 / 58; Resp 14bpm; Temp 97.3F; iw iw 14:35 13:18 BP 118 / 76; Pulse 100bpm; Resp 21bpm; Pulse Ox 91% BiPAP; Temp 93.1F; Applied ll1 bear hugger; ll1 16:25 16:24 BP 109 / 75; Pulse 111bpm; Resp 20bpm; Pulse Ox 95% BiPAP; Temp 97.9F Catheter; ll1 ll1
--- NOTE | 2023-03-03 13:38 | EDPHYS ---
Physician Documentation [facility] Name: Ceci Ward Age: 42 yrs Sex: Female : 1980 Arrival Date: 03/03/2023 Time: 10:20 Bed 3 Private MD: ED Physician Fidel Apple HPI: 03/03 13:13 This 42 yrs old Female presents to ER via Wheelchair with complaints of Trouble rt Walking, Dizziness, Hearing Problem. 13:13 Patient presents to the ED with more than 1 week of generalized weakness, fatigue, rt difficulty breathing. The patient states that the symptoms have worsened, prompting her to come to the ED for further evaluation. Denies chest pain. She reports having a history of ulcers but denies any hematemesis presently. Denies other acute complaints at this time. Symptoms are severe in severity, no other aggravating or alleviating factors.. 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 - Social history:: Smoking status: Patient reports the use of cigarette tobacco products, smokes two packs cigarettes per day. ROS: 13:47 Cardiovascular: Negative for chest pain, palpitations, and edema, Abdomen/GI: Negative rt for abdominal pain, nausea, vomiting, diarrhea, and constipation, MS/Extremity: Negative for injury and deformity. 13:47 Constitutional: Positive for fatigue, malaise, weight loss. 13:47 Respiratory: Positive for cough, shortness of breath. 13:47 Skin: Positive for lesions, pallor. 13:47 Neuro: Positive for near syncope, weakness. Exam: 13:47 Head/Face: Normocephalic, atraumatic. Eyes: Pupils equal round and reactive to light, rt extra-ocular motions intact. Lids and lashes normal. Conjunctiva and sclera are non-icteric and not injected. Cornea within normal limits. Periorbital areas with no swelling, redness, or edema. Chest/axilla: Normal chest wall appearance and motion. Nontender with no deformity. No lesions are appreciated. Cardiovascular: Regular rate and rhythm with a normal S1 and S2. No gallops, murmurs, or rubs. Normal PMI, no JVD. No pulse deficits. Abdomen/GI: Soft, non-tender, with normal bowel sounds. No distension or tympany. No guarding or rebound. No evidence of tenderness throughout. 13:47 Constitutional: The patient appears emaciated, in obvious distress, obviously ill. 13:47 ENT: Poor dentition, dry mucous membranes. 13:47 ECG was reviewed by the Attending Physician. 13:47 Respiratory: Coarse breath sounds diffusely, moderate respiratory distress. 13:47 Skin: Multiple lesions on skin, pale. Vital Signs: 10:27 BP 75 / 58; Pulse 99; Resp 28; Temp 97.3; iw 11:17 Pulse 96; Pulse Ox 71% on Non-rebreather mask; ll1 11:27 BP 144 / 113; Pulse 95; Resp 21; Pulse Ox 94% on Non-rebreather mask; ll1 12:02 BP 114 / 80; Pulse 98; Resp 21; Temp 88.1(Ca); Pulse Ox 97% ; ll1 12:11 BP 100 / 84; Pulse 103; Resp 22; Temp 92(Ca); Pulse Ox 86% on Non-rebreather mask; ll1 12:28 Weight 48.08 kg (R); ll1 12:55 BP 107 / 78; Pulse 100; Resp 22; Temp 93(Ca); Pulse Ox 85% on Non-rebreather mask; ll1 13:18 BP 118 / 76; Pulse 100; Resp 21; Temp 93.1; Pulse Ox 91% on BiPAP; ll1 13:57 BP 117 / 79; Pulse 100; Resp 22; Temp 93.2; Pulse Ox 100% ; ll1 14:34 BP 91 / 77; Pulse 100; Resp 22; Temp 91.1(Ca); Pulse Ox 84% on BiPAP; ll1 14:49 BP 103 / 52; Pulse 102; Resp 22; Temp 93.9(Ca); Pulse Ox 82% on BiPAP; ll1 15:08 Pulse 103; Resp 23; Temp 94.5(Ca); Pulse Ox 92% on BiPAP; ll1 15:19 BP 138 / 88; Pulse 103; Resp 22; Temp 95.1(Ca); Pulse Ox 94% ; ll1 15:52 BP 127 / 96; Pulse 113; Resp 22; Temp 96.6(Ca); Pulse Ox 96% on 100 lpm BiPAP; hb 16:24 BP 109 / 75; Pulse 111; Resp 20; Temp 97.9(Ca); Pulse Ox 95% on BiPAP; ll1 16:56 BP 111 / 86; Pulse 115; Resp 21; Temp 98.5; Pulse Ox 94% ; ll1 17:20 BP 132 / 90; Pulse 115; Resp 22; Temp 98.6(Ca); Pulse Ox 97% ; ll1 17:48 BP 117 / 59; Pulse 114; Resp 22; Pulse Ox 97% on Non-rebreather mask; ll1 13:18 Applied bear hugger, medium heat ll1 14:34 Bear hugger increased to high temp. ll1 16:24 Bear hugger turned off for now ll1 Procedures: 13:50 Central Line: the site was prepped with Chlorhexidine, a triple lumen catheter was rt inserted, in the left internal jugular vein, in 1 attempts. placement was verified, by CXR, by blood return, the site was dressed with Chlorhexidine impregnated dressing, the patient tolerated the procedure, well. MDM: 10:31 Patient medically screened. rt 13:50 Data reviewed: vital signs, nurses notes, lab test result(s), EKG, radiologic studies. rt Consideration of Admission/Observation Patient was admitted/placed on observation. Management of patient was discussed with the following: Hospitalist: Agrees to admit. I considered the following discharge prescriptions or medication management in the emergency department Medications were administered in the Emergency Department. See MAR. Post IV fluid administration reassessment for Sepsis: Client prescribed 30 mL/kg IVF. Focused assessment performed: March 03, 2023 at 13:30 Lungs: Rhonchi noted. Skin examination performed. Skin noted to be pale. Current patient vital signs reviewed: Yes. Neuro: Patient's neurological exam has improved from previous exam. Counseling: I had a detailed discussion with the patient and/or guardian regarding: the historical points, exam findings, and any diagnostic results supporting the discharge/admit diagnosis, lab results, radiology results, the need for further work-up and treatment in the hospital. Response to treatment: the patient's symptoms have mildly improved after treatment. 03/03 10:39 Order name: CBC with Diff; Complete Time: 12:29 rt 03/03 10:39 Order name: CMP; Complete Time: 11:35 rt 03/03 10:39 Order name: Acetone, Serum; Complete Time: 11:35 rt 03/03 10:39 Order name: UAM; Complete Time: 12:16 rt 03/03 10:39 Order name: PREGU; Complete Time: 12:16 rt 03/03 10:39 Order name: Lipase; Complete Time: 11:35 rt 03/03 10:39 Order name: Magnesium; Complete Time: 11:35 rt 03/03 10:39 Order name: ABG rt 03/03 10:39 Order name: Type And Screen rt 03/03 10:39 Order name: Lactate w/ 2H reflex if indic.; Complete Time: 11:35 rt 03/03 10:39 Order name: Troponin High Sensitivity; Complete Time: 11:35 rt 03/03 10:39 Order name: HIV Ag/Ab Combo rt 03/03 10:39 Order name: Rpr; Complete Time: 15:26 rt 03/03 10:39 Order name: Blood Culture Adult (2) rt 03/03 10:39 Order name: Protime (+inr); Complete Time: 11:35 rt 03/03 10:39 Order name: Ptt, Activated; Complete Time: 11:35 rt 03/03 10:39 Order name: Urinalysis w/ reflexes rt 03/03 10:40 Order name: UDS; Complete Time: 12:16 rt 03/03 10:47 Order name: Glucose, Ancillary Testing; Complete Time: 11:35 EDMS 03/03 12:13 Order name: ABO/RH no charge; Complete Time: 12:16 EDMS 03/03 12:21 Order name: Influenza Screen (a \T\ B); Complete Time: 13:28 rt 03/03 12:21 Order name: SARS RAPID; Complete Time: 13:28 rt 03/03 12:21 Order name: BNP; Complete Time: 12:52 rt 03/03 12:21 Order name: Manual Differential; Complete Time: 12:29 EDMS 03/03 13:50 Order name: ABG; Complete Time: 14:36 rt 03/03 15:34 Order name: Lactate Sepsis 2 HR Follow-up; Complete Time: 16:06 EDMS 03/03 16:28 Order name: CBC with Automated Diff EDMS 03/03 16:28 Order name: CBC with Automated Diff EDMS 03/03 16:28 Order name: Comprehensive Metabolic Panel EDMT 03/03 16:28 Order name: Comprehensive Metabolic Panel EDMT 03/03 16:28 Order name: Lactate w/ 2H reflex if indic. EDMS 03/03 16:28 Order name: Lactate w/ 2H reflex if indic. EDMS 03/03 16:28 Order name: Lipid Profile EDMT 03/03 16:28 Order name: Lipid Profile EDMT 03/03 16:28 Order name: Magnesium EDMS 03/03 16:28 Order name: Magnesium EDMS 03/03 16:28 Order name: NT PRO-BNP EDMT 03/03 16:28 Order name: NT PRO-BNP EDMT 03/03 16:29 Order name: Phosphorus EDMT 03/03 16:29 Order name: Phosphorus EDMT 03/03 16:30 Order name: Sputum Culture EDMT 03/03 10:39 Order name: Head C Spine CAP W Con CT; Complete Time: 12:52 rt 03/03 11:34 Order name: Chest Single View XRAY; Complete Time: 12:16 hb 03/03 10:39 Order name: EKG; Complete Time: 10:39 rt 03/03 16:28 Order name: CONS Physician Consult EDMT 03/03 16:28 Order name: NPO [facility] 03/03 10:39 Order name: EKG - Nurse/Tech; Complete Time: 11:08 rt 03/03 10:39 Order name: Accucheck; Complete Time: 11:08 rt 03/03 10:39 Order name: Cardiac monitoring; Complete Time: 11:08 rt 03/03 10:39 Order name: IV Saline Lock - Large Bore; Complete Time: 11:08 rt 03/03 10:39 Order name: Labs collected and sent; Complete Time: 11:08 rt 03/03 10:39 Order name: O2 Per Protocol; Complete Time: 11:08 rt 03/03 10:39 Order name: O2 Sat Monitoring; Complete Time: 11:08 rt 03/03 10:39 Order name: Vital Signs; Complete Time: 11:40 rt 03/03 12:02 Order name: Mathur; Complete Time: 12:04 ll1 EC:47 Rate is 98 beats/min. Rhythm is regular, Normal Sinus Rhythm with Occasional PVCs. QRS rt [place] is Normal. AR interval is normal. QRS interval is normal. QT interval is prolonged at 528 msec. No Q waves. Interpreted by me. Administered Medications: 11:08 Drug: Lactated Ringers Solution IV 2000 ml Route: IV; Rate: bolus; Site: right jugular; ll1 13:00 Follow up: Response: No adverse reaction; IV Status: Completed infusion; IV Intake: ll1 2000ml 12:02 Drug: Cefepime IVPB 2 grams Route: IVPB; Rate: 200 ml/hr; Infused Over: 30 mins; Site: ll1 Other; 12:57 Follow up: Response: No adverse reaction; IV Status: Completed infusion; IV Intake: ll1 100ml 12:57 Drug: vancoMYCIN IVPB 1 grams Route: IVPB; Infused Over: 2 hrs; Site: left jugular; ll1 15:02 Follow up: IV Status: Completed infusion; IV Intake: 250ml ll1 15:01 Drug: MethylPrednisoLONE IVP 125 mg Route: IVP; Site: left jugular; 1 17:55 Follow up: Response: No adverse reaction ll1 15:06 Drug: DuoNeb Nebulize (3:1) (2.5 mg - 0.5 mg) 3 ml Route: Nebulizer; ll1 17:55 Follow up: Response: No adverse reaction 1 Point of Care Testing: Blood Glucose: 11:17 Blood Glucose: 235 mg/dL; ll1 Ranges: Critical Glucose Levels:Adult <50 mg/dl or >400 mg/dl <40 mg/dl or >180 mg/dl Disposition Summary: 03/03/23 13:37 Hospitalization Ordered Hospitalization Status: Inpatient Admission rt Provider: Aysha Arguello rt Location: Intensive Care Unit rt Condition: Critical rt Problem: new rt Symptoms: have improved rt Bed/Room Type: Standard rt Room Assignment: 7-(03/03/23 17:13) eb Diagnosis - Severe sepsis with septic shock rt - Pneumonia, unspecified organism rt - Acute respiratory failure with hypoxia rt Forms: - Medication Reconciliation Form rt - SBAR form rt Critical care time excluding procedures: 13:53 Critical care time: Bedside Care: 35 minutes, Consultation: 5 minutes. Total time: 40 rt minutes Signatures: Dispatcher [employer] Bridgette Dias RN RN Yvette Kulkarni Lynsay, RN RN ll1 Fidel Apple MD MD rt Corrections: (The following items were deleted from the chart) 10: 10:26 Home Meds: None; iw 11:46 11:36 Chest Single View+RAD.RAD.BRZ ordered. EDMS EDMS 17:13 13:37 rt eb
[2023-03-03 14:07] LABS: Arterial Blood Carboxyhemoglob 1.1 % (0-1.5); Blood Gas Oxyhemoglobin 81.2 % (94-97); Blood O2 Saturation 84.1 % (92-98.5)
[2023-03-03 14:54] LABS: RPR (Rapid Plasma Reagin) NON-REACT (NON-REACT)
[2023-03-03] MEDS ORDERED: HYDROCORTISONE SUC 100 MG INJ ONE (15:02)
[2023-03-03] MEDS ORDERED: IPRATROPIUM BROM 0.5MG/2.5ML ONE (15:03)
[2023-03-03] MEDS ORDERED: ALBUTEROL 2.5 MG/3 ML NEB SOL ONE (15:03)
[2023-03-03] MEDS ORDERED: ONDANSETRON 4 MG/2 ML VIAL IV PRN (16:20)
[2023-03-03] MEDS: Levofloxacin 750mg IV 750 MG/150 ML BAG IV SCH (17:59)
[2023-03-03] MEDS: NA CHLORIDE 0.9% 1,000 ML IV SCH (17:59)
[2023-03-03] MEDS: METHYLPREDNISOLONE 125 MG INJ IV SCH (18:00)
[2023-03-03] MEDS: ALBUTEROL 2.5 MG/3 ML NEB SOL NEB SCH (20:40)
[2023-03-03] MEDS: IPRATROPIUM BROM 0.5MG/2.5ML NEB SCH (20:40)
[2023-03-03] MEDS ORDERED: VANCOMYCIN 1.25 GM in NA CHLORIDE 0.9% 250 ML IVPB SCH (21:00)
[2023-03-03 22:22] LABS: Absolute Lymphocytes (CBC) 0.6 K/uL (0.7-4.9); Hematocrit 23.7 % (36.0-45.0); Lymphocytes % 4.2 % (15.3-44.8); MCV 77.7 fL (80-100); MPV 8.1 fL (7.6-11.3); RBC Red Blood Cell Count 3.05 M/uL (3.86-4.86)
--- NOTE | 2023-03-03 22:24 | P.HP ---
Certification for Inpatient Patient admitted to: Inpatient With expected LOS: >2 Midnights Patient will require the following post-hospital care: None Practitioner: I am a practitioner with admitting privileges, knowledge of patient current condition, hospital course, and medical plan of care. Services: Services provided to patient in accordance with Admission requirements found in Title 42 Section 412.3 of the Code of Federal Regulations Patient History Date of Service: 03/03/23 Reason for admission: Acute respiratory failure History of Present Illness: Patient is a 42-year-old female who came into the emergency room difficult to arouse. She apparently had been feeling well for the last few days. Patient's significant other states that she was staying with someone else about 48 hours ago. Yesterday, she and her significant others stayed together and had watched TV. This morning he found her difficult to arouse so he called EMS. When EMS got there she was hypoxic and tachypneic and they brought her into the emergency room. Patient was very lethargic in the emergency room. The nurses states she was barely arousable on arrival. She is much more awake and alert. She has been apparently sick for the last week. She has not been seen by physician. She has not gone to be evaluated. She just has gotten weaker. Family does states she has some skin rashes that were being treated by a commercial lender. I am not really sure as to what medication she was using. Not able to get much of her medical information from her significant other. At this time she was evaluated in the emergency room. She had CT imaging done which revealed bilateral consolidated pneumonia diffusely. She also is severely anemic. Patient does not have any signs of active bleeding. No melanotic stools and no hematemesis. There is a questionable history of a gastric ulcer. Patient will be admitted to the hospital and will treat her with IV antibiotics. She will need nebs and steroids. He is currently on BiPAP and will try to wean her off of the BiPAP. We will put her on a Protonix drip as well. Patient will be admitted to the intensive care unit. Allergies acetaminophen [From Darvocet-N 100] Allergy (Verified 03/15/13 14:12) Itching/Hives/Rash propoxyphene napsylate [From Darvocet-N 100] Allergy (Verified 03/15/13 14:12) Itching/Hives/Rash Home Medications: Ondansetron [Zofran (Odt)*] 4 mg PO Q12H 03/03/23 Pantoprazole [Protonix Tab*] 40 mg PO BID 03/03/23 Triamcinolone 0.1% Crm [Kenalog 0.1% Cream*] 1 appl TOP BID 03/03/23 - Past Medical/Surgical History Past Medical History: Patient denies medical history -: BTL - Family History Father Family History: Reviewed- Non-Contributory - Social History Smoking Status: Current every day smoker Alcohol use: No CD- Drugs: No Caffeine use: No Review of Systems is unable to be obtained Physical Examination - Vital Signs Temperature: 98 F Blood Pressure: 111/84 Pulse: 109 Respirations: 23 Pulse Ox (%): 96 - Physical Exam General: Alert, In no apparent distress, Oriented x1, Moderate distress HEENT: Atraumatic, PERRLA, Mucous membr. moist/pink, EOMI, Sclerae nonicteric Neck: Supple, 2+ carotid pulse no bruit, No LAD, Without JVD or thyroid abnormality Respiratory: Diminished, Expiratory wheezes Cardiovascular: Regular rate/rhythm, Normal S1 S2, No murmurs Gastrointestinal: Normal bowel sounds, Soft and benign, Non-distended, No tenderness Musculoskeletal: No clubbing, No swelling, No tenderness Integumentary: No rashes Neurological: Sensation intact, Cranial nerves 3-12 intact, Abnormal gait, Abnormal speech, Abnormal strength Lymphatics: No axilla or inguinal lymphadenopathy - Studies Laboratory Data (last 24 hrs) 03/03/23 10:58: PT 19.1 H, INR 1.74, APTT 29.2 03/03/23 10:58: Sodium 135 L, Potassium 3.4 L, BUN 23 H, Creatinine 0.90, Glucose 166 H, Magnesium 2.2, Total Bilirubin 0.1 L, AST 354 H, ALT 168 H, Alkaline Phosphatase 131 H, Lipase 53 03/03/23 10:58: WBC 20.70 H, Hgb 7.4 L, Hct 25.3 L, Plt Count 520 H Microbiology Data (last 24 hrs): 03/03/23 12:49 Nasopharnyx Influenza Type A Antigen Screen - Final 03/03/23 12:49 Nasopharnyx Influenza Type B Antigen Screen - Final Assessment & Plan - Problems (Diagnosis) (1) Acute respiratory failure Current Visit: Yes Status: Acute (2) Community acquired bilateral lower lobe pneumonia Current Visit: Yes Status: Acute (3) Hypoxemia Current Visit: Yes Status: Acute (4) Elevated troponin Current Visit: Yes Status: Acute (5) Elevated brain natriuretic peptide (BNP) level Current Visit: Yes Status: Acute - Plan 1. Continue with IV antibiotics 2. Awaiting sputum and blood culture 3. Repeat chest x-ray 4. Will proceed with CT scan of the chest if pneumonia is not improved to evaluate for postobstructive pneumonia 5. Respiratory isolation is not needed 6. Continue with nebs as needed 7. O2 per protocol 8. Continue with gentle hydration 9. Repeat labs including CBC and renal function in a.m. 10. GI and DVT prophylaxis - Advance Directives Does patient have a Living Will: No Does patient have a Durable POA for Healthcare: No
[2023-03-03 22:32] LABS: Protime INR 1.55
[2023-03-03] MEDS: DEXMEDETOMIDINE HCL 200 MCG in NA CHLORIDE 0.9% 98 ML IV SCH (22:35)
[2023-03-03] MEDS ORDERED: PANTOPRAZOLE INJ 80 MG in NA CHLORIDE 0.9% 250 ML IV SCH (23:00)
[2023-03-03 23:11] LABS: Albumin 2.1 g/dL (3.4-5.0); Bilirubin Total 0.2 mg/dL (0.2-1.0); Magnesium 1.8 mg/dL (1.6-2.4); Potassium 3.9 mEq/L (3.5-5.1); Protein, Total 5.8 g/dL (6.4-8.2)
[2023-03-03 23:17] LABS: Troponin High Sensitivity 96.4 pg/mL (<58.9)
[2023-03-04] MEDS: METHYLPREDNISOLONE 125 MG INJ IV SCH ×4 (00:57→18:39)
[2023-03-04] MEDS ORDERED: ALBUMIN HUMAN 25% 100 ML IV ONE (01:53)
[2023-03-04] MEDS: DEXMEDETOMIDINE HCL 200 MCG in NA CHLORIDE 0.9% 98 ML IV SCH ×2 (02:00→05:00)
[2023-03-04] MEDS: IPRATROPIUM BROM 0.5MG/2.5ML NEB SCH ×4 (02:55→19:32)
[2023-03-04] MEDS: ALBUTEROL 2.5 MG/3 ML NEB SOL NEB SCH ×3 (02:55→19:32)
[2023-03-04 05:03] LABS: Absolute Lymphocytes (CBC) 0.6 K/uL (0.7-4.9); Hematocrit 25.6 % (36.0-45.0); Lymphocytes % 4.7 % (15.3-44.8); MCV 78.5 fL (80-100); MPV 8.1 fL (7.6-11.3); RBC Red Blood Cell Count 3.26 M/uL (3.86-4.86)
[2023-03-04] MEDS: NA CHLORIDE 0.9% 1,000 ML IV SCH (05:11)
[2023-03-04 05:40] LABS: Albumin 2.5 g/dL (3.4-5.0); Bilirubin Total 0.4 mg/dL (0.2-1.0); Magnesium 1.8 mg/dL (1.6-2.4); Potassium 3.9 mEq/L (3.5-5.1); Protein, Total 5.6 g/dL (6.4-8.2)
[2023-03-04 05:42] LABS: Phosphorus 1.3 mg/dL (2.5-4.9)
[2023-03-04] MEDS ORDERED: MAGNESIUM SULFATE 1 gm IVPB 1 GM/100 ML BAG IV ONE (05:52)
[2023-03-04] MEDS ORDERED: POTASSIUM PHOS IN 0.9 % NACL 15 MMOL/250 ML BAG IV ONE (05:53)
[2023-03-04] MEDS ORDERED: VANCOMYCIN 1 GM in NA CHLORIDE 0.9% 250 ML IVPB SCH (07:00)
[2023-03-04] MEDS ORDERED: FENTANYL CITR 100 MCG/2 ML IV ONE (08:19)
[2023-03-04] MEDS ORDERED: FENTANYL CITR 100 MCG/2 ML IV PRN (08:19)
--- NOTE | 2023-03-04 08:28 | RAD REPORT ---
EXAM DESCRIPTION: RADChest Single View03/04/2023 4:57 am CLINICAL HISTORY: pneumonia COMPARISON: Chest Single View dated 03/03/2023 TECHNIQUE: Portable AP view of the chest. FINDINGS: Left IJ CVC unchanged in position. Stable distribution of patchy bilateral airspace opaci ties most confluent in the lung bases. No pneumothorax or sizable effusion. The cardiomediastinal con tours are unremarkable. IMPRESSION: Stable bilateral extensive airspace opacities, may reflect pulmonary edema or pneumonia.
[2023-03-04] MEDS ORDERED: MORPHINE 2 MG/ML SYR IV PRN ×2 (08:39→08:56)
--- NOTE | 2023-03-04 08:40 | RAD REPORT ---
EXAM DESCRIPTION: US - Abdomen Exam Complete - 03/04/2023 5:54 am CLINICAL HISTORY: Elevated liver enzymes COMPARISON: None. TECHNIQUE: Sonographic grayscale and color flow images of the abdomen were obtained. FINDINGS: Exam was technically limited due to patient's condition. Gallbladder was not visualized, possibly collapsed or surgically removed. Common bile duct is normal in caliber, 5 millimeter with no common duct stone identified. The liver and spleen show no suspicious findings. Subjective prominent caliber of the main portal vei n. The visualized portions of the pancreas are unremarkable. No hydronephrosis or suspicious mass in either kidney. Mild free ascites. Aorta is normal is size. No ascites or bulky lymphadenopathy. IMPRESSION: Nonvisualization of the gallbladder, possibly collapsed or surgically removed. No intra or extrahepatic biliary ductal dilation. Mild free ascites.
[2023-03-04] MEDS: PANTOPRAZOLE INJ 80 MG in NA CHLORIDE 0.9% 250 ML IV SCH ×2 (08:43→19:43)
[2023-03-04] MEDS: DEXMEDETOMIDINE HCL 1,000 MCG in NA CHLORIDE 0.9% 490 ML IV SCH (08:43)
[2023-03-04] MEDS ORDERED: ENOXAPARIN 40 MG/0.4 ML SQ SCH (09:00)
[2023-03-04] MEDS: FUROSEMIDE 20 MG/ 2ML VIAL IV SCH ×2 (10:26→20:44)
[2023-03-04] MEDS: FENTANYL CITR 100 MCG/2 ML IV PRN ×2 (11:37→18:37)
--- NOTE | 2023-03-04 12:05 | P.CNS ---
Date of Consult: 03/04/23 Reason for Consult: Respiratory failure Chief Complaint: Acute respiratory failure History of Present Illness: Patient is 42 years of age admitted with altered mental status was found to be very hypoxic diffuse bilateral infiltrates and ARDS on the x-ray is found difficult to arouse hypoxic urine testing shows multiple drugs currently on a BiPAP nonverbal alert Allergies acetaminophen [From Darvocet-N 100] Allergy (Verified 03/15/13 14:12) Itching/Hives/Rash propoxyphene napsylate [From Darvocet-N 100] Allergy (Verified 03/15/13 14:12) Itching/Hives/Rash Home Medications: Ondansetron [Zofran (Odt)*] 4 mg PO Q12H 03/03/23 Pantoprazole [Protonix Tab*] 40 mg PO BID 03/03/23 Triamcinolone 0.1% Crm [Kenalog 0.1% Cream*] 1 appl TOP BID 03/03/23 - Past Medical/Surgical History Past Medical History: Unable to obtain Past Surgical History: Unable to obtain -: BTL - Family History Father Family History: Reviewed- Non-Contributory - Social History Smoking Status: Current every day smoker Alcohol use: No CD- Drugs: No Caffeine use: No Review of Systems is unable to be obtained Physical Examination Temp Pulse Resp BP Pulse Ox 97.2 F 96 H 42 H 126/78 96 03/04/23 08:00 03/04/23 10:26 03/04/23 08:45 03/04/23 10:26 03/04/23 07:45 General: Alert, Unresponsive Respiratory: Clear to auscultation bilaterally, Diminished Cardiovascular: No edema, Regular rate/rhythm, Normal S1 S2 Gastrointestinal: Normal bowel sounds, Soft and benign Laboratory Data (last 24 hrs) 03/03/23 10:58: WBC 20.70 H, Hgb 7.4 L, Hct 25.3 L, Plt Count 520 H - Problems (1) ARDS (adult respiratory distress syndrome) Current Visit: Yes Status: Acute Plan: Patient is 42 years of age poor historian admitted with bilateral pneumonia CT scan chest x-ray reviewed abnormal LFTs significantly hypoxic patient has a mild normocytic anemia continue with present therapy his increase CPAP continue with antibiotic procalcitonin level is elevated urine screen is tested positive for opiates and benzodiazepines HIV screen is negative continue with steroids vital signs are stable DC IV fluids initiated negative fluid balance
--- NOTE | 2023-03-04 13:56 | CON ---
Date of Consultation: 03/04/2023 Reason For Consultation: Cardiac pauses. History Of Present Illness: A 42-year-old female, who was admitted to the hospital with acute hypoxi c respiratory failure and respiratory distress due to pneumonia and COPD exacerbation. Apparently, t his patient has a longstanding drug abuse history including methamphetamine and she is an active smok er, admitted with respiratory distress. She was placed on BiPAP and when she takes the BiPAP off, sh e starts having bradycardia and she had pauses as long as 10 seconds, but came out of it spontaneousl y. At the present time, she is sinus and the rate in mid 90s, and no heart block. The patient is no t awake to give a very good history. She is very lethargic. Past Medical History: Apparently is none. Medications: Refer to reconciliation sheet for detailed list. Allergies: ACETAMINOPHEN AND PROPOXYPHENE. Family History: No premature coronary artery disease or cancer. Social History: She is an active smoker and uses methamphetamine and drinks on a regular basis. Review of Systems: All systems reviewed and they were negative except what mentioned in HPI. Physical Examination: Vital Signs: Reviewed. Head and Neck: Pupils are equal, reactive to light. Intact eye movements. No cervical lymphadenopa thy. Neck is supple. Thyroid is not enlarged. Lungs: Diffuse rhonchi and wheezing bilaterally with decreased breathing sounds and increasing respi ratory efforts. Heart: Regular rate and rhythm. Tachycardic. Abdomen: Soft, nontender. Bowel sounds positive. No organomegaly. No masses or hernia. No rigidi ty or rebound. Extremities: No clubbing or cyanosis. Intact pulses. Skin: No rash. Neurologic: She is lethargic, but moving all her extremities. Lymph Nodes: No cervical or axillary lymphadenopathy. Investigations: BUN 16, creatinine 0.3, magnesium 1.8, potassium 3.9. NT-proBNP is 8194 and troponi n was 96 and hemoglobin is 7.9 with white blood cell count is 12,000 down from 20,000. Assessment And Recommendations: 1.Acute hypoxic respiratory failure due to pneumonia and possible acute respiratory distress syndrom e. Continue current care in the ICU with positive pressure through the BiPAP and high-flow oxygen an d antibiotics, and she is being managed by Pulmonary. 2.Bradycardia and cardiac pauses, periodic, it happens whenever she takes off her mask. Likely, thi s is hypoxia induced and related to the acute respiratory failure condition she is in. We will keep monitoring her closely in the ICU and obtain an echo. If she does sustain a heart block or if she be comes more bradycardic with hypotension, then we might plan for a temporary wire or pacemaker, but I do not think she will need even that as her pauses are likely due to the significant hypoxia. Critic ally ill patient and I will monitor the patient with you. 3.Elevated troponin, borderline, likely demand. Obtain echo as above. SR/MODL Voice ID: [id number] Report ID: [id number]
--- NOTE | 2023-03-04 15:24 | EKG ---
Test Date: 2023-03-03 Test Time: 11:38:28 Concreter: INGRID MEASUREMENT RESULTS: Intervals: Rate: 98 UT: 130 QRSD: 90 QT: 414 QTc: 528 [place]: P: 50 UT: 130 QRS: 60 T: 60 INTERPRETIVE STATEMENTS: Sinus rhythm with occasional premature ventricular complexes Prolonged QT Abnormal ECG Compared to ECG 01/15/2003 00:00:00 Ventricular premature complex(es) now present Prolonged QT interval now present Sinus tachycardia no longer present Electronically Signed On 03-04-23 15:21:53 CDT by Jesus Justice
[2023-03-04] MEDS: Levofloxacin 750mg IV 750 MG/150 ML BAG IV SCH (18:37)
[2023-03-04] MEDS: VANCOMYCIN 1.25 GM in NA CHLORIDE 0.9% 250 ML IVPB SCH (18:38)
[2023-03-05] MEDS: IPRATROPIUM BROM 0.5MG/2.5ML NEB SCH ×5 (00:36→20:30)
[2023-03-05] MEDS: ALBUTEROL 2.5 MG/3 ML NEB SOL NEB SCH ×2 (00:36→08:15)
[2023-03-05] MEDS: DEXMEDETOMIDINE HCL 1,000 MCG in NA CHLORIDE 0.9% 490 ML IV SCH (01:05)
[2023-03-05] MEDS: METHYLPREDNISOLONE 125 MG INJ IV SCH ×2 (01:58→05:45)
[2023-03-05] MEDS: PANTOPRAZOLE INJ 80 MG in NA CHLORIDE 0.9% 250 ML IV SCH (05:44)
[2023-03-05] MEDS: FENTANYL CITR 100 MCG/2 ML IV PRN ×5 (05:45→23:03)
--- NOTE | 2023-03-05 05:50 | P.PN ---
Date of Service: 03/04/23 Subjective Patient is more awake and alert. However, she continues to have significant hypoxemia and has sinus pauses during some of these episodes when she pulled off her BiPAP and become severely hypoxic. Cardiology has seen the patient and no aggressive management at this time. May need temporary pacemaker this continues. Continue monitoring electrolytes closely. Slowly wean off of the BiPAP and wean down oxygen. Patient should slowly improve over the course of the next 48-72 hours. As long as the pneumonia continues to improve. Physical Examination - Vital Signs reviewed - Physical Exam General: Alert, In no apparent distress, Oriented x1, Moderate distress Respiratory: Diminished, Expiratory wheezes Cardiovascular: Regular rate/rhythm, Normal S1 S2, No murmurs Gastrointestinal: Normal bowel sounds, Soft and benign, Non-distended, No tenderness Musculoskeletal: No clubbing, No swelling, No tenderness Neurological: Sensation intact, Cranial nerves 3-12 intact, Abnormal gait, Abnormal speech, Abnormal strength Assessment & Plan - Problems (Diagnosis) (1) Acute respiratory failure Current Visit: Yes Status: Acute (2) Bilateral diffuse consolidated pneumonia Current Visit: Yes Status: Acute (3) Hypoxemia with secondary sinus pause Current Visit: Yes Status: Acute (4) Elevated troponin Current Visit: Yes Status: Acute (5) Elevated brain natriuretic peptide (BNP) level Current Visit: Yes Status: Acute - Plan Continue with plan of care as mentioned below: 1. Continue with IV antibiotics 2. Awaiting sputum and blood culture 3. Repeat chest x-ray 4. Continue monitoring cardiac rhythm. Appreciate Cardiology recommendation. 5. Echocardiogram pending 6. Continue with nebs as needed 7. O2 per protocol; continue with BiPAP support at this time 8. Continue with gentle hydration 9. continue monitoring labs closely 10. GI and DVT prophylaxis
[2023-03-05 06:54] LABS: Albumin 2.3 g/dL (3.4-5.0); Bilirubin Total 0.2 mg/dL (0.2-1.0); Magnesium 2.4 mg/dL (1.6-2.4); Potassium 3.3 mEq/L (3.5-5.1); Protein, Total 5.8 g/dL (6.4-8.2)
[2023-03-05 06:59] LABS: Phosphorus 1.5 mg/dL (2.5-4.9)
[2023-03-05] MEDS: VANCOMYCIN 1.25 GM in NA CHLORIDE 0.9% 250 ML IVPB SCH (07:00)
[2023-03-05 07:22] LABS: Lymphocytes % 13.4 % (15.3-44.8); MCV 78.2 fL (80-100); MPV 8.4 fL (7.6-11.3); RBC Red Blood Cell Count 3.32 M/uL (3.86-4.86)
--- NOTE | 2023-03-05 08:57 | ECHO ---
HEIGHT: 5 ft 4 in WEIGHT: 110 lb 12.8 oz DATE OF STUDY: 03/04/[address]: Aysha Arguello MD 2-DIMENSIONAL: YES M.MODE: YES DOPPLER: YES COLOR FLOW: YES TDS: YES PORTABLE: DEFINITY: BUBBLE STUDY: DIAGNOSIS: SINUS PAUSE CARDIAC HISTORY: CATHERIZATION: SURGERY: PROSTHETIC VALVE: PACEMAKER: MEASUREMENTS (cm) DIASTOLIC (NORMALS) SYSTOLIC (NORMALS) IVSd 0.8 (0.6-1.2) LA Diam 2.9 (1.9-4.0) LVEF 48% LVIDd 4.5 (3.5-5.7) LVIDs 3.4 (2.0-3.5) %FS 24% LVPWd 0.9 (0.6-1.2) Ao Diam 2.8 (2.0-3.7) 2 DIMENSIONAL ASSESSMENT: RIGHT ATRIUM: NORMAL LEFT ATRIUM: NORMAL RIGHT VENTRICLE: NORMAL LEFT VENTRICLE: NORMAL TRICUSPID VALVE: NORMAL MITRAL VALVE: NORMAL PULMONIC VALVE: NORMAL AORTIC VALVE: NORMAL PERICARDIAL EFFUSION: NONE AORTIC ROOT: NORMAL LEFT VENTRICULAR WALL MOTION: PARADOXICAL SEPTUM DOPPLER/COLOR FLOW: MILD TRICUSPID REGURGITATION. NORMAL RIGHT VENTRICULAR SYSTOLIC PRESSURE. COMMENTS: 1. PARADOXICAL SEPTUM 2. EJECTION FRACTION 48% 3. TECHNICALLY DIFFICULT TECHNOLOGIST: YISEL MONZON
--- NOTE | 2023-03-05 08:57 | RAD REPORT ---
EXAM DESCRIPTION: RAD - Chest Single View - 03/05/2023 5:32 am CLINICAL HISTORY: Respiratory failure Chest pain. COMPARISON: Chest Single View dated 03/04/2023; Chest Single View dated 03/03/2023 FINDINGS: Portable technique limits examination quality. Mild improvement in bilateral pulmonary opacities are seen since yesterday's study. Moderate bilatera l opacities persist. The heart is normal in size. Left IJ catheter has tip in the SVC. IMPRESSION: Mild improvement in bilateral pulmonary opacities since comparative study.
[2023-03-05] MEDS ORDERED: VANCOMYCIN 1.25 GM in NA CHLORIDE 0.9% 250 ML IVPB SCH (09:00)
[2023-03-05] MEDS: ENOXAPARIN 40 MG/0.4 ML SQ SCH (09:50)
[2023-03-05] MEDS: FUROSEMIDE 20 MG/ 2ML VIAL IV SCH ×2 (09:50→20:07)
[2023-03-05] MEDS ORDERED: DEXMEDETOMIDINE HCL 1,000 MCG in NA CHLORIDE 0.9% 490 ML IV SCH ×2 (10:00)
--- NOTE | 2023-03-05 10:02 | P.PN ---
Date of Service: 03/05/23 Subjective Patient continues to improve. However, hypoxemia improved and just bradycardia; BP stable-wean Precedex. Cardiology has seen the patient and no aggressive management at this time. Continue monitoring electrolytes closely. Slowly weaning off of the BiPAP and will try high flow O2 today; start advancing diet as well. Patient should slowly improve over the course of the next 48-72 hours. CXR better Physical Examination - Vital Signs reviewed - Physical Exam General: Alert, In no apparent distress, Oriented x1, Moderate distress Respiratory: Diminished, Clear bilaterally Cardiovascular: Regular rate/rhythm, Normal S1 S2, No murmurs Gastrointestinal: Normal bowel sounds, Soft and benign, Non-distended, No tenderness Musculoskeletal: No clubbing, No swelling, No tenderness Neurological: Generalized weakness; Assessment & Plan - Problems (Diagnosis) (1) Acute respiratory failure Current Visit: Yes Status: Acute (2) Bilateral diffuse consolidated pneumonia Current Visit: Yes Status: Acute (3) Hypoxemia with secondary sinus pause Current Visit: Yes Status: Acute (4) Elevated troponin Current Visit: Yes Status: Acute (5) Elevated brain natriuretic peptide (BNP) level Current Visit: Yes Status: Acute - Plan Continue with plan of care as mentioned below: 1. Continue with IV antibiotics 2. Awaiting cultures 3. Repeat chest x-ray 4. Continue monitoring cardiac rhythm. Appreciate Cardiology recommendation. 5. Echocardiogram pending 6. Continue with nebs as needed 7. O2 per protocol; wean off BiPAP to high flow 8. Continue with gentle hydration; start nutrition 9. wean precedex 10. GI and DVT prophylaxis
[2023-03-05] MEDS ORDERED: ALBUTEROL 2.5 MG/3 ML NEB SOL NEB PRN (11:53)
--- NOTE | 2023-03-05 11:56 | P.PN ---
Subjective Date of Service: 03/05/23 Chief Complaint: Acute respiratory failure Subjective: Improving (Patient is improving oxygen requirements declining will experiencing significant desat off the BiPAP) Review of Systems General: Weakness Respiratory: Shortness of Breath Physical Examination - Vital Signs Temperature: 98 F Blood Pressure: 133/74 Pulse: 43 Respirations: 33 Pulse Ox (%): 94 - Physical Exam General: Alert, Oriented x3, Cooperative Respiratory: Clear to auscultation bilaterally, Diminished Cardiovascular: No edema, Regular rate/rhythm Assessment And Plan - Current Problems (Diagnosis) (1) ARDS (adult respiratory distress syndrome) Current Visit: Yes Status: Acute Plan: Patient admitted with ARDS etiology unknown we will titrate O2 down HIV test is negative patient has electrolyte imbalance hypophosphatemia hypokalemia malnourished will need to either start on [place] or PPN for now White count is normal mildly anemic vital signs stable cultures negative DC vancomycin DC IV Solu-Medrol changed to p.o. prednisone no evidence of GI bleeding change to p.o. PPI electrolyte replacement chest x-ray shows a mild improvement
[2023-03-05 12:38] LABS: Arterial Blood Carboxyhemoglob 0.8 % (0-1.5); Blood Gas Oxyhemoglobin 90.2 % (94-97); Blood O2 Saturation 92.9 % (92-98.5)
[2023-03-05] MEDS ORDERED: POTASSIUM PHOS 40 MEQ in NA CHLORIDE 0.9% 500 ML IV ONE (17:00)
[2023-03-05] MEDS: Levofloxacin 750mg IV 750 MG/150 ML BAG IV SCH (17:22)
[2023-03-05] MEDS: predniSONE 20 MG TAB PO SCH (20:07)
[2023-03-05] MEDS: ACETAMINOPHEN 500 MG TAB PO PRN (20:17)
[2023-03-06] MEDS: FENTANYL CITR 100 MCG/2 ML IV PRN ×5 (04:52→23:34)
[2023-03-06 05:06] LABS: Absolute Lymphocytes (CBC) 1.2 K/uL (0.7-4.9); Hematocrit 26.7 % (36.0-45.0); Lymphocytes % 10.1 % (15.3-44.8); MCV 77.8 fL (80-100); RBC Red Blood Cell Count 3.43 M/uL (3.86-4.86)
[2023-03-06 05:20] LABS: Magnesium 2.1 mg/dL (1.6-2.4); Potassium 3.2 mEq/L (3.5-5.1)
[2023-03-06 05:27] LABS: Phosphorus 1.5 mg/dL (2.5-4.9)
[2023-03-06] MEDS: PANTOPRAZOLE 40MG TABLET PO SCH (05:38)
[2023-03-06] MEDS ORDERED: POTASSIUM PHOS IN 0.9 % NACL 15 MMOL/250 ML BAG IV ONE (07:30)
[2023-03-06] MEDS: predniSONE 20 MG TAB PO SCH ×2 (08:36→20:34)
[2023-03-06] MEDS: ENOXAPARIN 40 MG/0.4 ML SQ SCH (08:37)
[2023-03-06] MEDS: FUROSEMIDE 20 MG/ 2ML VIAL IV SCH ×2 (08:37→20:34)
[2023-03-06] MEDS: IPRATROPIUM BROM 0.5MG/2.5ML NEB SCH ×3 (08:50→20:45)
--- NOTE | 2023-03-06 08:53 | RAD REPORT ---
EXAM DESCRIPTION: RADChest Single View03/06/2023 4:47 am CLINICAL HISTORY: Respiratory failure COMPARISON: Chest Single View dated 03/05/2023; Chest Single View dated 03/04/2023; Chest Single View dated 03/03/2023hest Single View dated 03/05/2023; Chest Single View dated 03/04/2023; Chest Single Vie w dated 03/03/2023 TECHNIQUE: Portable AP view of the chest. FINDINGS: Stable patchy bilateral airspace opacities. Endotracheal tube has been placed, its tip ter minating approximately 3.8 centimeter above the emmanuel. Left IJ CVC unchanged in position with its ti p projecting over the superior cavoatrial junction. No pneumothorax or effusion. The cardiomediastin al contours are unremarkable. IMPRESSION: Satisfactory placement of endotracheal tube. Otherwise stable findings as above.
[2023-03-06] MEDS ORDERED: SODIUM PHOSPHATE 20 MM in NA CHLORIDE 0.9% 250 ML IV ONE (10:00)
[2023-03-06] MEDS ORDERED: KCL 20 MEQ/100 mL IVPB 20 MEQ/100 ML BAG IV ONE (11:30)
--- NOTE | 2023-03-06 11:46 | PN ---
Date of Progress Note: 03/05/2023 Ms. Ward was seen by Dr. Fernando for long pauses secondary to a combination of demand ischemia from hypoxia, benzodiazepine, opiate overdose. She is also on BiPAP 96%. Elevated white count, elevated lactic acid, low phosphate, mildly elevated troponin, significantly elevated liver function tests. BNP is elevated. Echocardiogram showed paradoxical septal wall motion, normal right ventricular syst olic pressure, ejection fraction of 48%. She has not had any further pauses since yesterday. We hernesto l continue to follow her on an as-needed basis. DARIEL/SHANNANL Voice ID: [id number] Report ID: [id number]
--- NOTE | 2023-03-06 12:12 | P.PN ---
Subjective Date of Service: 03/06/23 Chief Complaint: Acute respiratory failure Subjective: Improving (Patient is improving oxygen requirements declining complaining of generalized pain) Review of Systems General: Weakness Respiratory: Shortness of Breath Musculoskeletal: Other (Generalized pain) Physical Examination - Vital Signs Temperature: 97.0 F Blood Pressure: 126/92 Pulse: 96 Respirations: 29 Pulse Ox (%): 100 - Physical Exam General: Alert, Oriented x3 Respiratory: Clear to auscultation bilaterally, Friction rub Cardiovascular: Regular rate/rhythm, Normal S1 S2 Assessment And Plan - Current Problems (Diagnosis) (1) ARDS (adult respiratory distress syndrome) Current Visit: Yes Status: Acute Plan: Patient admitted with ARDS she is gradually improving oxygen requirements declining titrate sat to 90% so far cultures are negative advance diet on IV levofloxacin blood cultures are so far negative chest x-ray is improving changed to p.o. levofloxacin
--- NOTE | 2023-03-06 13:58 | P.PN ---
Subjective Date of Service: 03/06/23 Chief Complaint: Acute respiratory failure Subjective: No new changes, Improving Physical Examination - Vital Signs Temperature: 97.0 F Blood Pressure: 126/92 Pulse: 96 Respirations: 29 Pulse Ox (%): 100 - Physical Exam General: Alert, Moderate distress HEENT: Atraumatic, Normocephalic Neck: Supple Respiratory: Crackles/rales Cardiovascular: Regular rate/rhythm, Normal S1 S2 Gastrointestinal: Soft and benign Musculoskeletal: No swelling Neurological: Normal speech Assessment And Plan - Plan Assessment & Plan - Problems (Diagnosis) (1) Acute respiratory failure Current Visit: Yes Status: Acute (2) Bilateral diffuse consolidated pneumonia Current Visit: Yes Status: Acute (3) Hypoxemia with secondary sinus pause Current Visit: Yes Status: Acute (4) Elevated troponin Current Visit: Yes Status: Acute (5) Elevated brain natriuretic peptide (BNP) level Current Visit: Yes Status: Acute - Plan Continue with plan of care as mentioned below: 1. Continue with IV antibiotics. 2. Awaiting cultures report. 3. Repeat chest x-ray 4. Continue monitoring cardiac rhythm. Appreciate Cardiology recommendation. 5. Echocardiogram pending 6. Continue with nebs as needed 7. O2 per protocol; wean off BiPAP to high flow 8. Continue with gentle hydration; start nutrition 9. wean precedex as tolerated. 10. As needed Xanax and pain control with [place] started as per patient request GI and DVT prophylaxis on board.
[2023-03-06] MEDS: ALPRAZOLAM 0.5 MG TABLET PO PRN ×2 (15:10→21:40)
[2023-03-06] MEDS: HYDROCODONE/APAP 5/325 MG TAB PO PRN (15:10)
[2023-03-06 16:45] LABS: Specific Gravity 1.018 (1.005-1.030); Urine Bacteria None Seen /HPF (<20); Urine Bilirubin NEGATIVE (Negative); Urine Blood Negative (Negative); Urine Clarity Clear (Clear); Urine Color Light-Yellow (Yellow); Urine Glucose NEGATIVE (Negative); Urine Protein 1+ (Negative); Urine RBC <5 /HPF (None Seen); Urine Urobilinogen Normal (Normal)
[2023-03-06] MEDS ORDERED: levoFLOXacin 500 MG TAB PO SCH (17:00)
[2023-03-06] MEDS: NICOTINE 21 MG/PAT TD SCH (19:08)
[2023-03-06] MEDS ORDERED: POTASSIUM CL SA 10 MEQ TAB PO ONE (20:00)
[2023-03-06] MEDS: ACETAMINOPHEN 500 MG TAB PO PRN (23:41)
[2023-03-07] MEDS: IPRATROPIUM BROM 0.5MG/2.5ML NEB SCH ×4 (01:45→20:30)
[2023-03-07] MEDS: FENTANYL CITR 100 MCG/2 ML IV PRN ×5 (03:25→21:34)
[2023-03-07] MEDS: HYDROCODONE/APAP 5/325 MG TAB PO PRN ×2 (05:36→18:05)
[2023-03-07] MEDS: PANTOPRAZOLE 40MG TABLET PO SCH (05:36)
[2023-03-07] MEDS: ALPRAZOLAM 0.5 MG TABLET PO PRN ×3 (05:36→20:21)
[2023-03-07 05:37] LABS: Albumin 2.4 g/dL (3.4-5.0); Phosphorus 1.8 mg/dL (2.5-4.9); Potassium 3.6 mEq/L (3.5-5.1); Thyroid Stimulating Hormone 0.483 uIU/mL (0.358-3.740); Uric Acid 1.6 mg/dL (2.6-6.0)
[2023-03-07] MEDS ORDERED: POTASSIUM PHOS IN 0.9 % NACL 15 MMOL/250 ML BAG IV ONE ×2 (08:00→14:58)
[2023-03-07] MEDS: ENOXAPARIN 40 MG/0.4 ML SQ SCH (08:29)
[2023-03-07] MEDS: FUROSEMIDE 20 MG/ 2ML VIAL IV SCH (08:29)
[2023-03-07] MEDS: NICOTINE 21 MG/PAT TD SCH (08:30)
[2023-03-07] MEDS: predniSONE 20 MG TAB PO SCH ×2 (08:30→20:21)
--- NOTE | 2023-03-07 08:33 | P.PN ---
Subjective Date of Service: 03/07/23 Chief Complaint: Acute respiratory failure Subjective: No new changes, Improving Physical Examination - Vital Signs Temperature: 96.9 F Blood Pressure: 137/104 Pulse: 104 Respirations: 21 Pulse Ox (%): 92 - Physical Exam General: Alert, Oriented x3, Moderate distress HEENT: Atraumatic, Normocephalic Respiratory: Crackles/rales Cardiovascular: Regular rate/rhythm, Normal S1 S2 Gastrointestinal: Soft and benign Musculoskeletal: No swelling Neurological: Normal speech Assessment And Plan - Plan Assessment & Plan - Problems (Diagnosis) (1) Acute respiratory failure Current Visit: Yes Status: Acute (2) Bilateral diffuse consolidated pneumonia Current Visit: Yes Status: Acute (3) Hypoxemia with secondary sinus pause Current Visit: Yes Status: Acute (4) Elevated troponin Current Visit: Yes Status: Acute (5) Elevated brain natriuretic peptide (BNP) level Current Visit: Yes Status: Acute - Plan Patient has had significant improvement since diuretic therapy was started. She is not volume contracted. We will diuretic therapy. We will continue nicotine patch. Pain and pain control with [place] and as needed fentanyl. We will continue to wean off oxygen as tolerated. Oxygen saturation continues to be significant concern. We will continue current breathing treatment. Antibiotics to be continued. GI and DVT prophylaxis on board.
--- NOTE | 2023-03-07 08:48 | RAD REPORT ---
[facility] DES[facility] 4[facility] am CLINICAL HISTORY: Respiratory failure COMPARISON: Chest Single View dated 03/06/2023; Chest Single View dated 03/05/2023; Chest Single View dated 03/04/2023; Chest Single View dated 03/03/2023 TECHNIQUE: Portable AP view of the chest. FINDINGS: Partial improvement of aeration in the lung periphery bilaterally. Left IJ CVC is unchange d in position. No pneumothorax or effusion. The cardiomediastinal contours are unchanged. IMPRESSION: Partially improved airspace opacities in the lung bases bilaterally. Otherwise stable fi ndings.
[2023-03-07] MEDS: levoFLOXacin 750 MG TAB PO SCH (16:37)
--- NOTE | 2023-03-07 16:41 | PN ---
Date of Progress Note: 03/07/2023 Subjective: The patient was admitted with pneumonia. The patient found to have hypokalemia, hypopho sphatemia. The patient has been treated. Yesterday, the patient received 50 mEq of potassium phosph ate. Physical Examination: Vital Signs: When I saw the patient today; the patient is still on high-flow, blood pressure 133/103 , pulse of 117, afebrile. Chest: Crackles bilateral. Heart: S1, S2. Systolic murmur. Abdomen: Soft, nontender. Extremities: No edema. Neurologic: Alert. No focality. Laboratory Data: Urine osmolality 528, sodium 79, potassium of 25. Sodium 142, potassium 3.6, bicar b 38, BUN 10, creatinine 0.2, uric acid 1.6, calcium 7.4, magnesium 2, phosphorus 1.8, albumin 2.4, c orrected calcium is 8.6. Current Medications: The patient on include albuterol, nicotine, Lovenox, alprazolam, pantoprazole. Assessment And Plan: 1.Hypophosphatemia. The patient received 50 mEq yesterday, we are going to go ahead and give 75 tod ay. 2.Hypokalemia, status post supplement, on the recovery. I am going to go ahead and add spironolacto ne. 3.Possible Fanconi. Send for PC ratio. Start the patient on spironolactone. We will follow up tra nstubular potassium gradient and PC ratio. 4.Pneumonia as by primary. WILFREDO/ERIN Voice ID: [id number] Report ID: [id number]
--- NOTE | 2023-03-07 16:41 | CON ---
Date of Consultation: 03/06/2023 Reason For Consultation: Hypophosphatemia. History Of Present Illness: This is a pleasant unfortunate 42-year-old female with significant past medical history of none. The patient came to the hospital with shortness of breath, altered mental status. The patient found to have pneumonia. Apparently, the patient is getting decline over the last few weeks. The patient was treated for questionable gastric ulcer. The patient found to have low phosphorus. For that reason, we have been consulted. The patient complaining from diarrhea, has been resolved. The patient was placed on BiPAP, weaned from BiPAP, currently on high-flow. Past Medical History: Includes pneumonia. Past Surgical History: Bilateral fiectomy . Family History: Positive for hypertension. Home Medications: Include Zofran, pantoprazole, triamcinolone. Allergies: TO TYLENOL Social History: Denied smoking, denied drinking, denied drugs use. Review of Systems: Head and Neck: No red eye. No ear pain. GI: No nausea. Has some diarrhea. : No polyuria. No dysuria. No hematuria. 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 Respiratory: Has shortness of breath. Has cough. Cardiovascular: No chest pain. Endocrine: No polydipsia. Skin: No rash. Neuro: The patient alert. No focality. No headache. Physical Examination: Vital Signs: Blood pressure of 138/96, pulse of 106. Chest: Faint rales bilateral. Heart: S1, S2. Systolic murmur. Abdomen: Soft, nontender. Extremities: No edema. Neurologic: Alert. No focality. Laboratory Data: Sodium 140, potassium 3.2, bicarb 37, BUN 20, creatinine 0.3, calcium 7, phosphorus 1.5, magnesium 2.1. Albumin 2.3, corrected calcium is 9. Current Medications: The patient on include albuterol, nicotine, Lovenox, breathing treatment, pantoprazole. Assessment And Plan: 1. Hypokalemia, hypophosphatemia, mostly secondary to severe malnourish and sickness to rule out Fanconi syndrome in the presence of the proteinuria. I going to go ahead and aggressively replenish the electrolyte and we will follow up the patient. I am going to send for urine electrolyte to calculate the transtubular potassium gradient and send for PC ratio to rule out any Fanconi syndrome and we will monitor the patient. 2. Hypophosphatemia. We will start supplement. Hypomagnesemia has been ruled out. 3. Hypertension, not controlled. I am going to start the patient on Norvasc and we will follow up. 4. Pneumonia as by primary. Thank you, Dr. Slade for allowing us to participate in the care of your patient. time spend exam the patient face to face reviewing data lab and radiology placing order , discussing with patient and nursing staff discussing with hospitalisit >75min DICTATION ENDS HERE KANU Voice ID: [id number] Report ID: [id number] ABELINO
[2023-03-07] MEDS: ACETAMINOPHEN 500 MG TAB PO PRN (20:24)
[2023-03-08] MEDS: FENTANYL CITR 100 MCG/2 ML IV PRN ×5 (01:19→19:12)
[2023-03-08] MEDS: IPRATROPIUM BROM 0.5MG/2.5ML NEB SCH ×4 (02:15→20:15)
[2023-03-08 02:36] LABS: UR PROTEIN 79.7 mg/dL (<11.9); Urine Protein/Creatinine Ratio 2.15 ratio (<0.15)
[2023-03-08] MEDS: ALPRAZOLAM 0.5 MG TABLET PO PRN ×3 (02:45→20:34)
[2023-03-08 05:48] LABS: Albumin 2.5 g/dL (3.4-5.0); Magnesium 2.1 mg/dL (1.6-2.4); Phosphorus 2.5 mg/dL (2.5-4.9); Potassium 4.1 mEq/L (3.5-5.1)
[2023-03-08] MEDS: PANTOPRAZOLE 40MG TABLET PO SCH (06:55)
[2023-03-08] MEDS: ENOXAPARIN 40 MG/0.4 ML SQ SCH (07:57)
[2023-03-08] MEDS: AMLODIPINE 10 MG TAB PO SCH (07:57)
[2023-03-08] MEDS: SPIRONOLACTONE 25 MG TABLET PO SCH (07:57)
[2023-03-08] MEDS: predniSONE 20 MG TAB PO SCH ×2 (07:57→20:34)
[2023-03-08] MEDS: NICOTINE 21 MG/PAT TD SCH (07:58)
[2023-03-08] MEDS: POTASS/SODIUM PHOSPHATE 1 PKT POWD.PACK PO SCH ×3 (07:58→10:38)
[2023-03-08] MEDS: HYDROCODONE/APAP 5/325 MG TAB PO PRN ×2 (08:21→20:34)
--- NOTE | 2023-03-08 12:16 | P.PN ---
Subjective Date of Service: 03/08/23 Chief Complaint: Acute respiratory failure Subjective: Other (no urinary complaints) Physical Examination - Vital Signs Temperature: 97.6 F Blood Pressure: 158/100 Pulse: 124 Respirations: 30 Pulse Ox (%): 95 - Physical Exam General: Other (chronically ill-appearing) HEENT: Atraumatic, Normocephalic Neck: Supple Respiratory: Other (symmetric chest expansion) Cardiovascular: No rubs, No murmurs Gastrointestinal: Soft and benign, No guarding Musculoskeletal: No clubbing Integumentary: No warmth Neurological: Normal tone Urinary: Other (no bladder distention) External genitalia: Deferred Rectal: Deferred - Studies Microbiology Data (last 24 hrs): 03/03/23 11:05 Blood - Blood Aerobic Blood Culture - Final No growth in 5 days. 03/03/23 11:05 Blood - Blood Anaerobic Blood Culture - Final No growth in 5 days. 03/03/23 10:58 Blood - Blood Aerobic Blood Culture - Final No growth in 5 days. 03/03/23 10:58 Blood - Blood Anaerobic Blood Culture - Final No growth in 5 days. Assessment And Plan - Plan 1. Hypokalemia, hypophosphatemia. Improved. Lytes repletion prn. 2. Acute respi failure, pneumonia. Per primary team. 3. Hypertension. BP meds adjusted. 4. Anemia. Monitor CBC.
[2023-03-08] MEDS: NYSTATIN 500,000 UNIT/5 ML UDC PO SCH ×2 (16:10→20:35)
[2023-03-08] MEDS: levoFLOXacin 750 MG TAB PO SCH (16:10)
[2023-03-08] MEDS: ENSURE ENLIVE 237 ML CAN PO SCH (20:35)
[2023-03-08] MEDS: ACETAMINOPHEN 500 MG TAB PO PRN (23:06)
--- NOTE | 2023-03-08 23:17 | P.PN ---
Date of Service: 03/08/23 Subjective Patient continues to improve. Hypoxemia improved and ambulating well. Physical Examination - Vital Signs reviewed - Physical Exam General: Alert, In no apparent distress, Oriented x1, Moderate distress Respiratory: Diminished, Clear bilaterally Cardiovascular: Regular rate/rhythm, Normal S1 S2, No murmurs Gastrointestinal: Normal bowel sounds, Soft and benign, Non-distended, No tenderness Musculoskeletal: No clubbing, No swelling, No tenderness Neurological: Generalized weakness; Assessment & Plan - Problems (Diagnosis) (1) Acute respiratory failure Current Visit: Yes Status: Acute (2) Bilateral diffuse consolidated pneumonia Current Visit: Yes Status: Acute (3) Hypoxemia with secondary sinus pause Current Visit: Yes Status: Acute (4) Elevated troponin Current Visit: Yes Status: Acute (5) Elevated brain natriuretic peptide (BNP) level Current Visit: Yes Status: Acute - Plan Continue with plan of care as mentioned below: 1. Continue with IV antibiotics 2. Weaning off of BiPAP support. Patient overall has done well. C continue with nebs and O2 per protocol. Also will wean off the Precedex 3. GI and DVT prophylaxis hocardiogram pending
[2023-03-09] MEDS: FENTANYL CITR 100 MCG/2 ML IV PRN ×6 (00:24→22:19)
[2023-03-09] MEDS: IPRATROPIUM BROM 0.5MG/2.5ML NEB SCH ×4 (02:30→19:40)
[2023-03-09] MEDS: ALPRAZOLAM 0.5 MG TABLET PO PRN ×3 (04:13→20:22)
[2023-03-09] MEDS: NYSTATIN 500,000 UNIT/5 ML UDC PO SCH ×4 (04:13→20:21)
[2023-03-09 05:03] LABS: Absolute Lymphocytes (CBC) 0.9 K/uL (0.7-4.9); Hematocrit 35.3 % (36.0-45.0); Lymphocytes % 7.8 % (15.3-44.8); MCV 79.5 fL (80-100); MPV 8.2 fL (7.6-11.3); RBC Red Blood Cell Count 4.44 M/uL (3.86-4.86)
[2023-03-09 05:29] LABS: Albumin 2.9 g/dL (3.4-5.0); Bilirubin Total 0.2 mg/dL (0.2-1.0); C-Reactive Protein 10.1 mg/L (<3.00); Phosphorus 3.1 mg/dL (2.5-4.9); Potassium 4.3 mEq/L (3.5-5.1); Protein, Total 6.7 g/dL (6.4-8.2)
[2023-03-09 05:38] LABS: Blood Morphology Comment NOT SEEN (NOT SEEN); Platelet Estimate ADEQ
[2023-03-09 05:47] VITALS: BMI 15.5
[2023-03-09] MEDS: PANTOPRAZOLE 40MG TABLET PO SCH (06:27)
[2023-03-09] MEDS: AMLODIPINE 10 MG TAB PO SCH (08:34)
[2023-03-09] MEDS: predniSONE 20 MG TAB PO SCH ×2 (08:34→20:21)
[2023-03-09] MEDS: NICOTINE 21 MG/PAT TD SCH (08:35)
[2023-03-09] MEDS: SPIRONOLACTONE 25 MG TABLET PO SCH (08:35)
[2023-03-09] MEDS: ENOXAPARIN 40 MG/0.4 ML SQ SCH (08:35)
[2023-03-09] MEDS: ENSURE ENLIVE 237 ML CAN PO SCH ×2 (08:36→20:21)
--- NOTE | 2023-03-09 10:47 | RAD REPORT ---
[facility] CLINICAL HISTORY: pneumonia COMPARISON: Chest Single View dated 03/07/2023; Chest Single View dated 03/06/2023; Chest Single View dated 03/05/2023; Chest Single View dated 03/04/2023 TECHNIQUE: Portable AP view of the chest. FINDINGS: Left IJ CVC unchanged in position, with tip projecting at the superior cavoatrial junction . Resolution of left basilar patchy opacities. Continued improvement of right basal airspace opacific ation. No new focal airspace opacity. No pneumothorax or effusion. The cardiomediastinal contours ar e unremarkable. IMPRESSION: Improvement of bibasilar airspace opacities as above. No other new findings.
--- NOTE | 2023-03-09 15:10 | P.PN ---
Subjective Date of Service: 03/09/23 Chief Complaint: Acute respiratory failure Subjective: No new changes Physical Examination - Vital Signs Temperature: 97.9 F Blood Pressure: 106/83 Pulse: 112 Respirations: 14 Pulse Ox (%): 100 - Physical Exam General: Other (chronically ill-appearing) HEENT: Atraumatic, Normocephalic Neck: Supple, JVD not distended Respiratory: Other (symmetric chest expansion) Cardiovascular: No rubs, No murmurs Gastrointestinal: Soft and benign, No guarding Musculoskeletal: No clubbing Integumentary: No warmth Neurological: Normal tone Urinary: Other (no bladder distention) External genitalia: Deferred Rectal: Deferred - Studies Microbiology Data (last 24 hrs): 03/03/23 11:05 Blood - Blood Aerobic Blood Culture - Final No growth in 5 days. 03/03/23 11:05 Blood - Blood Anaerobic Blood Culture - Final No growth in 5 days. 03/03/23 10:58 Blood - Blood Aerobic Blood Culture - Final No growth in 5 days. 03/03/23 10:58 Blood - Blood Anaerobic Blood Culture - Final No growth in 5 days. Assessment And Plan - Plan 1. Hypokalemia, hypophosphatemia. Improved. Lytes repletion prn. 2. Acute respi failure, pneumonia. Per primary team. 3. Hypertension. BP meds adjusted. 4. Anemia. Monitor CBC.
[2023-03-09] MEDS: levoFLOXacin 750 MG TAB PO SCH (17:48)
[2023-03-09] MEDS: HYDROCODONE/APAP 5/325 MG TAB PO PRN (20:22)
[2023-03-10] MEDS: IPRATROPIUM BROM 0.5MG/2.5ML NEB SCH ×4 (01:30→19:50)
[2023-03-10] MEDS: FENTANYL CITR 100 MCG/2 ML IV PRN ×2 (02:26→06:26)
[2023-03-10] MEDS: NYSTATIN 500,000 UNIT/5 ML UDC PO SCH ×4 (04:27→20:07)
[2023-03-10] MEDS: ALPRAZOLAM 0.5 MG TABLET PO PRN ×3 (04:27→20:07)
[2023-03-10 04:29] LABS: Albumin 2.8 g/dL (3.4-5.0); Magnesium 2.2 mg/dL (1.6-2.4); Phosphorus 3.8 mg/dL (2.5-4.9); Potassium 4.9 mEq/L (3.5-5.1)
[2023-03-10] MEDS: PANTOPRAZOLE 40MG TABLET PO SCH (06:26)
[2023-03-10] MEDS: predniSONE 20 MG TAB PO SCH ×2 (09:38→20:07)
[2023-03-10] MEDS: SPIRONOLACTONE 25 MG TABLET PO SCH (09:38)
[2023-03-10] MEDS: ENOXAPARIN 40 MG/0.4 ML SQ SCH (09:39)
[2023-03-10] MEDS: NICOTINE 21 MG/PAT TD SCH (09:39)
[2023-03-10] MEDS: ENSURE ENLIVE 237 ML CAN PO SCH ×2 (09:39→20:07)
[2023-03-10] MEDS: AMLODIPINE 10 MG TAB PO SCH (09:41)
[2023-03-10] MEDS: HYDROCODONE/APAP 10/325 TAB PO PRN ×3 (09:42→20:07)
--- NOTE | 2023-03-10 15:30 | P.PN ---
Subjective Date of Service: 03/10/23 Chief Complaint: Acute respiratory failure Subjective: No new changes Physical Examination - Vital Signs Temperature: 98.4 F Blood Pressure: 106/71 Pulse: 109 Respirations: 18 Pulse Ox (%): 96 - Physical Exam General: In no apparent distress HEENT: Atraumatic, Normocephalic Neck: Supple Respiratory: Other (symmetric chest expansion) Cardiovascular: No rubs, No murmurs Gastrointestinal: Soft and benign, No guarding Musculoskeletal: No clubbing Integumentary: No warmth Neurological: Normal speech, Normal tone Urinary: Other (No bladder distention) External genitalia: Deferred Rectal: Deferred Assessment And Plan - Plan 1. Hypokalemia, hypophosphatemia. Improved. Lytes repletion prn. 2. Acute respi failure, pneumonia. Improving. Per primary team. 3. Metabolic alkalosis + mild respi acidosis. Increase po fluid intake. Avoid hypoK, hypoCl, hypoMg. 3. Hypertension. BP meds adjusted. 4. Anemia. Monitor CBC.
[2023-03-10 17:52] LABS: Arterial Blood Carboxyhemoglob 1.2 % (0-1.5); Blood O2 Saturation 85.7 % (92-98.5)
[2023-03-10] MEDS: levoFLOXacin 750 MG TAB PO SCH (17:57)
--- NOTE | 2023-03-10 18:59 | P.PN ---
Date of Service: 03/09/23 Subjective Patient is doing well. Weaning down oxygen. Out of bed and ambulating well. Transfer to general medical floor. Physical Examination - Vital Signs reviewed - Physical Exam General: Alert, In no apparent distress, Oriented x1, Moderate distress Respiratory: Diminished, Clear bilaterally Cardiovascular: Regular rate/rhythm, Normal S1 S2, No murmurs Gastrointestinal: Normal bowel sounds, Soft and benign, Non-distended, No tenderness Musculoskeletal: No clubbing, No swelling, No tenderness Neurological: Generalized weakness; Assessment & Plan - Problems (Diagnosis) (1) Acute respiratory failure Current Visit: Yes Status: Acute (2) Bilateral diffuse consolidated pneumonia Current Visit: Yes Status: Acute (3) Hypoxemia with secondary sinus pause Current Visit: Yes Status: Acute (4) Elevated troponin Current Visit: Yes Status: Acute (5) Elevated brain natriuretic peptide (BNP) level Current Visit: Yes Status: Acute - Plan Continue with plan of care as mentioned below: 1. Continue with IV antibiotics 2. Cultures have been negative 3. Repeat chest x-ray 4. Continue monitoring cardiac rhythm. Appreciate Cardiology recommendation. 5. Echocardiogram pending 6. Continue with nebs as needed 7. O2 per protocol; weaned off BiPAP to high flow; now to nasal cannula 8. Heplock IV 9. GI and DVT prophylaxis
--- NOTE | 2023-03-10 19:00 | P.PN ---
Date of Service: 03/10/23 Subjective Patient is feeling much better and she is excited about going home. She wants to go home today but I have asked her to wait at least till tomorrow to we can get her off the oxygen. Continue working with therapy and out of bed and ambulating. Continue with incentive spirometer. Hopefully we can discharge home tomorrow. Physical Examination - Vital Signs reviewed - Physical Exam General: Alert, In no apparent distress, Oriented x3 Respiratory: Clear bilaterally Cardiovascular: Regular rate/rhythm, Normal S1 S2, No murmurs Gastrointestinal: Normal bowel sounds, Soft and benign, Non-distended, No tenderness Musculoskeletal: No clubbing, No swelling, No tenderness Neurological: Generalized weakness; Assessment & Plan - Problems (Diagnosis) (1) Acute respiratory failure Current Visit: Yes Status: Acute (2) Bilateral diffuse consolidated pneumonia Current Visit: Yes Status: Acute (3) Hypoxemia with secondary sinus pause Current Visit: Yes Status: Acute (4) Elevated troponin Current Visit: Yes Status: Acute (5) Elevated brain natriuretic peptide (BNP) level Current Visit: Yes Status: Acute - Plan Continue with plan of care as mentioned below: 1. Continue with IV antibiotics; cultures remain negative. May need to repeat chest x-ray as patient's clinical symptoms are improving. Echocardiogram has also been reviewed. Appreciate cardiology and pulmonary recommendation. Nephrology to see the patient as well. At this time patient is clinically doing well and anticipate discharge over the next 24 to 48 hours.
[2023-03-10] MEDS ORDERED: FENTANYL CITR 100 MCG/2 ML IV ONE (21:24)
[2023-03-10] MEDS ORDERED: METOPROLOL TAR 25 MG TAB PO ONE (21:45)
[2023-03-10] MEDS ORDERED: NA CHLORIDE 0.9% 250 ML IV ONE (21:48)
[2023-03-10] MEDS: NA CHLORIDE 0.9% 1,000 ML IV SCH (23:35)
[2023-03-11] MEDS: IPRATROPIUM BROM 0.5MG/2.5ML NEB SCH ×2 (01:20→08:00)
[2023-03-11] MEDS: HYDROCODONE/APAP 10/325 TAB PO PRN ×2 (01:41→08:07)
[2023-03-11 03:44] VITALS: O2SAT 94
[2023-03-11] MEDS: ALPRAZOLAM 0.5 MG TABLET PO PRN (03:47)
[2023-03-11] MEDS: PANTOPRAZOLE 40MG TABLET PO SCH (03:47)
[2023-03-11] MEDS: NYSTATIN 500,000 UNIT/5 ML UDC PO SCH ×2 (05:31→08:08)
[2023-03-11] MEDS ORDERED: METOPROLOL TAR 25 MG TAB PO SCH (06:00)
[2023-03-11 06:47] LABS: Hematocrit 32.4 % (36.0-45.0); Lymphocytes % 4.9 % (15.3-44.8); MPV 7.9 fL (7.6-11.3)
[2023-03-11 07:09] LABS: Albumin 2.7 g/dL (3.4-5.0); Bilirubin Total 0.2 mg/dL (0.2-1.0); Phosphorus 2.6 mg/dL (2.5-4.9); Potassium 4.7 mEq/L (3.5-5.1); Protein, Total 6.2 g/dL (6.4-8.2)
[2023-03-11] MEDS: AMLODIPINE 10 MG TAB PO SCH ×2 (08:07→08:12)
[2023-03-11] MEDS: NICOTINE 21 MG/PAT TD SCH (08:08)
[2023-03-11] MEDS: ENOXAPARIN 40 MG/0.4 ML SQ SCH (08:08)
[2023-03-11] MEDS: predniSONE 20 MG TAB PO SCH (08:08)
[2023-03-11] MEDS: ENSURE ENLIVE 237 ML CAN PO SCH (08:09)
[2023-03-11 08:24] LABS: Anisocytosis 1+; Blood Morphology Comment NOTED (NOT SEEN); Platelet Estimate ADEQ; White Blood Cell Scan OK (OK)
--- NOTE | 2023-03-11 08:28 | RAD REPORT ---
EXAM DESCRIPTION: [facility] Single View03/11/2023 6:05 am CLINICAL HISTORY: Chest pain COMPARISON: March 09, 2023 FINDINGS: Mild improvement in the bilateral pulmonary opacities. Heart is normal size IMPRESSION: Mild improvement in the bilateral pulmonary opacities
[2023-03-11] MEDS: NA CHLORIDE 0.9% 1,000 ML IV SCH (11:20)
[2023-03-11 12:08] VITALS: BP 107/81; TEMP 99.2
[2023-03-11 13:07] LABS: Absolute Lymphocytes (CBC) 0.9 K/uL (0.7-4.9); Lymphocytes % 3.9 % (15.3-44.8); MCV 79.3 fL (80-100); MPV 8.3 fL (7.6-11.3); RBC Red Blood Cell Count 4.28 M/uL (3.86-4.86)
[2023-03-12 15:46] LABS: Albumin, (SPE) 2.7 g/dL (3.8-4.8); Alpha-1-Globulins 0.5 g/dL (0.2-0.3); Alpha-2-Globulins 1.1 g/dL (0.5-0.9); Gamma Globulins 0.6 g/dL (0.8-1.7); INTERPRETATION REPORT
== END 2023-03-11 13:35 | disposition home or self-care (01) | DRG 193 ==
LOC: ER 10:20 → ERHOLD 16:21 → 3RD-ICU 17:30 → 4TH 03-09 15:26
PROVIDERS: ADMIT Hospitalist; ATTEND Hospitalist
PROC: 5A09557 Assistance with Respiratory Ventilation, Greater than 96 Consecutive Hours, Continuous Positive Airway Pressure (ICD-10-PCS; principal; 2023-03-03)
PROC: 30233N1 Transfusion of Nonautologous Red Blood Cells into Peripheral Vein, Percutaneous Approach (ICD-10-PCS; 2023-03-03)
PROC: 02H633Z Insertion of Infusion Device into Right Atrium, Percutaneous Approach (ICD-10-PCS; 2023-03-03)
DX: J18.9 Pneumonia, unspecified organism (principal); E43 Unspecified severe protein-calorie malnutrition; J80 Acute respiratory distress syndrome; J44.1 Chronic obstructive pulmonary disease with (acute) exacerbation; F15.20 Other stimulant dependence, uncomplicated; Z68.1 Body mass index [BMI] 19.9 or less, adult; I24.8 Other forms of acute ischemic heart disease; E87.4 Mixed disorder of acid-base balance; I10 Essential (primary) hypertension; E87.6 Hypokalemia; D64.9 Anemia, unspecified; E83.39 Other disorders of phosphorus metabolism; F17.210 Nicotine dependence, cigarettes, uncomplicated; R77.8 Other specified abnormalities of plasma proteins; R79.89 Other specified abnormal findings of blood chemistry; Z88.8 Allergy status to other drugs, medicaments and biological substances; Z79.899 Other long term (current) drug therapy; Z20.822 Contact with and (suspected) exposure to COVID-19
CPT/HCPCS: 36415; 36430; 51702; 70450; 71045; 71260; 72125; 74177; 76700; 80048; 80053; 80061; 80069; 80307; 81001; 81025; 82010; 82435; 82550; 82570; 82805; 82947; 83605; 83690; 83735; 83880; 83935; 84100; 84132; 84145; 84156; 84165; 84300; 84443; 84484; 84550; 85025; 85610; 85730; 86140; 86592; 86850; 86900; 86901; 86920; 86922; 87040; 87070; 87205; 87389; 87804; 87811; 93005; 93306; 94002; 94003; 94640; 94660; 94760; 97110; 97116; 97161; 99285; C9113; J0692; J1650; J1720; J1940; J2930; J3010; J3475; J3480; J7030; J7040; J7050; J7120; J7512; J7613; J7644; P9016; P9047; Q9967

== ENCOUNTER 2023-06-05 08:39 | Inpatient (IN) | payer OTHER ==
--- OUTSIDE RECORDS SUMMARY | 2023-06-05 08:47 | XMS REPORT | Continuity of Care Document ---
:1980 Author Organization Formerly [facility] t Address [address] [facility] [address] [place] [address] Care Team Providers Name Role Phone TUCKER ARAMBULA Primary Care Physician Unavailable JEMIMA LUDWIG Attending Clinician Unavailable ANDREW GELLER Attending Clinician Unavailable TUCKER ARAMBULA Attending Clinician Unavailable Tucker Pandey Attending Clinician Barney Easton MD, Elizabeth Attending Clinician [phone] Vtc-Lab Attending Clinician Unavailable Meme Vanegas MD Attending Clinician MEME VANEGAS Attending Clinician Unavailable José Manuel Hendrickson DO Attending Clinician Shruthi Wise MD Attending Clinician José Manuel Hendrickson MD Attending Clinician Doctor Unassigned, Bradford Woods Attending Clinician Unavailable Emilie GUADALUPE, Chuck Attending Clinician Gokul YEH, oLvely Olmedo Attending Clinician YE HU Attending Clinician Unavailable Familia CASH SPECIALIST, Shilpa Copeland Attending Clinician Bigg Dodd DO Attending Clinician Chris Pierre MD Attending Clinician Fritz GUADALUPE, Ye Attending Clinician Tati Nowak MD Attending Clinician OCHOA BRADFORD Attending Clinician Unavailable DOROTA SAWYER Attending Clinician Unavailable Cece Dawson LVN Attending Clinician Unavailable Lab, Ang - Db Attending Clinician Unavailable Dakota GUADALUPE, Nam Attending Clinician Chandni YEH, Karoline Vogt Attending Clinician Unavailable CANDACE WALSH Attending Clinician Unavailable Dee GUADALUPE, Gary Machado Attending Clinician Candace Walsh DO Attending Clinician Panfilo Russ MD Attending Clinician Hilda CASH SPECIALIST, Ketty Attending Clinician Yhoan GUADALUPE, Kiel Silverman Attending Clinician [phone] KIEL ALMANZAR Attending Clinician Unavailable Michelle Pretty LMSW Attending Clinician Unavailable JYOTI FRAZIER Attending Clinician Unavailable nAdrew Geller DO Attending Clinician JOSÉ MANUEL HENDRICKSON Attending Clinician Unavailable Jemima Ludwig MD Attending Clinician Vls-Lab Attending Clinician Unavailable Sarah Santacruz MD Attending Clinician Unavailable CHYNA RAMIRES Attending Clinician Unavailable Chyna Ramires MD Attending Clinician SHERIE MAY Attending Clinician Unavailable Rohit Pastor MD Attending Clinician ROHIT PASTOR Attending Clinician Unavailable Shital Naranjo Attending Clinician Benjamín GUADALUPE, Ashish Attending Clinician Shira Woods RN R Attending Clinician Unavailable [facility], [facility] Care [facility] Attending Clinician Unavailable Estelle Rubio MD Attending Clinician ESTELLE RUBIO Attending Clinician Unavailable JEMIMA LUDWIG Admitting Clinician Unavailable ANDREW GELLER Admitting Clinician Unavailable PERSON, CHRIS Admitting Clinician Unavailable Person , Chris Admitting Clinician PANFILO RUSS Admitting Clinician Unavailable Panfilo Russ MD Admitting Clinician KIEL ALMANZAR Admitting Clinician Unavailable Jemima Ludwig MD Admitting Clinician Ashish Butts MD Admitting Clinician Payers Payer Name Policy Type Policy Number Effective Date Expiration Date Jeannette WYNN [id number] 2020 HEALTH 00:00:00 MEDICAID OF [place] [id number] 2017 00:00:00 Problems Condition Condition Condition Status [...] Added automatic ally from request for surgery [id number] Anxiety Anxiety Disease Active Univers 2-17 ity of 00:00: [place] 00 Medical Branch Excoriatio Excoriatio Disease Active U boy n n 2-17 ity of ([place] 00 Medical disorder disorder Branch Acute Acute Disease Active Univers hypoxemic hypoxemic 7-18 ity of respirator [place] failure y failure 00 Medi wanda due to due to Branch COVID-19 COVID-19 Abdominal Abdominal Disease Active Overview: Univers pain, pain, 7-28 Formattin ity of epigastric epigastric 00:00: g of this [place] 00 note Medical might be Branch different from the original. Added automatic ally from request for surgery [id number] Nausea and Nausea and Disease Active Overview : Univers vomiting, vomiting, 05-10 Formattin i ty of intractabi intractabi 00:00: g of this [place] lity of lity of 00 note Medical vomiting vomiting might be Bran ch not not different specified, specified, from the unspecifie unspecifie original. d vomiting d vomiting Added type type automatic ally from request for surgery [id number] History of History of Disease Active Overview : Univers bleeding bleeding 05-10 Formattin ity of peptic peptic 00:00: g of this [place] ulcer ulcer 00 note Medical might be Branch different from the original. Added automatic ally from request for surgery [id number] Duodenal Duodenal Disease Active Overview: Un evon ulcer ulcer 9-10 Formattin ity of 00:00: g of this [place] 00 note Medical might be Branch different from the original. Added automatic ally from request for surgery [id number] Upper GI Upper GI Disease Active Unive [...] Active Univers ALLERGIE Class ity of S [place] [facility] Social History Social Habit Start Date Stop Date Quantity Comments Source History SDOH Social Unive rsity of [facility] Med ical Together Branch History SDOH Social Unive rsity of [facility] Medical Branch History SDOH Social Unive rsity of [facility] Medical Membership Branch History SDOH Social Unive rsity of [facility] Medical Meetings Branch Gender identity Universit y [facility] Sexual orientation Univer sity of [place] [facility] [place] History of tobacco Cigarette Smoker University of use [facility] Alcohol intake 2023-03-18 2023-03-18 Lifetime University of 00:00:00 00:00:00 non-drinker [place] Medical (finding) Branch History SDOH 2022-12-31 2022-12-31 3 University o f Alcohol Frequency 00:00:00 00:00:00 [place] M edical Branch History SDOH 2022-12-31 2022-12-31 1 University o f Alcohol Std Drinks 00:00:00 00:00:00 [place] [facility] History SDOH 2022-12-31 2022-12-31 1 University o f Alcohol Binge 00:00:00 00:00:00 [place] Medic al Branch History SDOH Social 2022-12-31 2022-12-31 5 Unive rsity of Connections Phone 00:00:00 00:00:00 [place] M edical Branch History SDOH Social 2022-12-31 2022-12-31 8 Unive rsity of Connections Living 00:00:00 00:00:00 [place] [facility] History SDOH 2022-12-31 2022-12-31 1 University o f Physical Activity 00:00:00 00:00:00 [place] M edical DPW Branch History SDOH 2022-12-31 2022-12-31 3 University o f Physical Activity 00:00:00 00:00:00 [place] M edical MPS Branch History SDOH 2022-12-31 2022-12-31 5 University o f Financial 00:00:00 00:00:00 [place] [facility] History SDOH Food 2022-12-31 2022-12-31 1 Univers ity of Worry 00:00:00 00:00:00 [place] [facility] History SDOH Food 2022-12-31 2022-12-31 1 Univers ity of Scarcity 00:00:00 00:00:00 [place] [facility] History SDOH 2022-12-31 2022-12-31 2 University o f Transport Med 00:00:00 00:00:00 [place] Medic al Branch History SDOH 2022-12-31 2022-12-31 2 University o f Transport Non-Med 00:00:00 00:00:00 [place] M edical [facility] Exposure to 2022-12-20 2022-12-30 Not sure University of SARS-CoV-2 (event) 00:00:00 17:15:00 [place] [facility] Cigarettes smoked 2022-12-30 2022-12-30 Univers ity of current (pack per 00:00:00 00:00:00 ) - Reported Branch Cigarette 2022-12-30 2022-12-30 University of pack-years 00:00:00 00:00:00 [facility] Tobacco Comment 2022-12-30 2022-12-30 Smokes a pack a Univ ersity of 00:00:00 00:00:00 day per pt, [facility] Tobacco use and 2022-12-30 2022-12-30 Smokeless Universit y of exposure 00:00:00 00:00:00 tobacco non-user [facility] [place] [facility] History of Social 2022-06-01 2022-06-01 Univers ity of function 00:00:00 00:00:00 [facility] Sex [birth year] At [birth year] Universit y of 00:00:00 00:00:00 [facility] Smoking Status Start Date Stop Date Source Smokes tobacco daily 2022-12-30 00:00:00 Univers ity of [facility] Medications Ordered Filled Start Stop Current Ordering Indication Dosage Frequency Signature Comments Components Source Medication Medication Date Date Medication? Clinician (SIG) Name Name doxepin 50 Yes [id number] 50mg Take 1 Univers mg capsule 8-17 capsule by ity of 00:00: mouth at [place] 00 bedtime. Medical Branch docusate Yes [id number] 100mg Take 1 Un evon (COLACE) 5-19 capsule by ity o f 100 mg 00:00: mouth in [place] capsule 00 the Medical morning. Branch docusate Yes [id number] 100mg Take 1 Un evon (COLACE) 5-19 capsule by ity o f 100 mg 00:00: mouth in [place] capsule 00 the Medical morning. Branch docusate Yes [id number] 100mg Take 1 Un evon (COLACE) 5-19 capsule by ity o f 100 mg 00:00: mouth in [place] capsule 00 the Medical morning. Branch docusate Yes [id number] 100mg Take 1 Un evon (COLACE) 5-19 capsule by ity o f 100 mg 00:00: mouth in [place] capsule 00 the Medical morning. Branch docusate Yes [id number] 100mg Take 1 Un evon (COLACE) 5-19 capsule by ity o f 100 mg 00:00: mouth in [place] capsule 00 the Medical morning. Branch docusate 3-0 Yes [id number] 100mg Take 1 Un evon (COLACE) 5-19 capsule by ity o f 100 mg 00:00: mouth in [place] capsule 00 the Medical morning. Branch docusate 3-0 Yes [id number] 100mg Take 1 Un evon (COLACE) 5-17 capsule by ity o f 100 mg 00:00: mouth in [place] capsule 00 the Medical morning. Branch docusate 3-0 2023- No [id number] 100mg Take 1 U nivers (COLACE) 5-17 05-19 capsule by ity of 100 mg 00:00: 00:00 mouth in [place] capsule 00 :00 the Medical morning. Branch ondansetron 2023-0 Yes [id number] 4mg Take 1 Univers 4 mg tablet 4-12 tablet by ity of 00:00: mouth [place] 00 every 12 Medical (twelve) Branch hours. ondansetron 2023-0 Yes [id number] 4mg Take 1 Univers 4 mg tablet 4-12 tablet by ity of 00:00: mouth [place] 00 every 12 Medical (twelve) Branch hours. ondansetron 2023-0 Yes [id number] 4mg Take 1 Univers 4 mg tablet 4-12 tablet by ity of 00:00: mouth [place] 00 every 12 Medical (twelve) Branch hours. ondansetron 2023-0 Yes [id number] 4mg Take 1 Univers 4 mg tablet 4-12 tablet by ity of 00:00: mouth [place] 00 every 12 Medical (twelve) Branch hours. ondansetron 2023-0 Yes [id number] 4mg Take 1 Univers 4 mg tablet 4-12 tablet by ity of 00:00: mouth [place] 00 every 12 Medical (twelve) Branch hours. ondansetron 2023-0 Yes [id number] 4mg Take 1 Univers 4 mg tablet 4-12 tablet by ity of 00:00: mouth [place] 00 every 12 Medical (twelve) Branch hours. ondansetron 2023-0 Yes [id number] 4mg Take 1 Univers 4 mg tablet 4-12 tablet by ity of 00:00: mouth [place] 00 every 12 Medical (twelve) Branch hours. ondansetron 2023-0 Yes [id number] 4mg Take 1 Univers 4 mg tablet 4-12 tablet by ity of 00:00: mouth [place] 00 every 12 Medical (twelve) Branch hours. ondansetron 2023-0 Yes [id number] 4mg Take 1 Univers 4 mg tablet 4-12 tablet by ity of 00:00: mouth [place] 00 every 12 Medical (twelve) Branch hours. ketoconazol 2023-0 Yes [id number] Apply to Univers e 2 % 4-05 area(s) ity of shampoo 00:00: once [place] 00 as needed Medical for Branch Itching. triamcinolo 2023-0 Yes [id number] Apply to Univers ne 4-05 area(s) 2 ity of acetonide 00:00: (two) [place] 0.1 % cream 00 times Medical daily. Branch ketoconazol 2022-0 Yes [id number] Apply to Univers e 2 % 4-05 area(s) ity of shampoo 00:00: once [place] 00 as needed Medical for Branch Itching. triamcinolo 2023-0 Yes [id number] Apply to Univers ne 4-05 area(s) 2 ity of acetonide 00:00: (two) [place] 0.1 % cream 00 times Medical daily. Branch ketoconazol 3-0 Yes [id number] Apply to Univers e 2 % 4-05 area(s) ity of shampoo 00:00: once daily [place] 00 as needed Medical for Branch Itching. triamcinolo 2023-0 Yes [id number] Apply to Univers ne 4-05 area(s) 2 ity of acetonide 00:00: (two) [place] 0.1 % cream 00 times Medical daily. Branch ketoconazol 3-0 Yes [id number] Apply to Univers e 2 % 4-05 area(s) ity of shampoo 00:00: once daily [place] 00 as needed Medical for Branch Itching. triamcinolo 2023-0 Yes [id number] Apply to Univers ne 4-05 area(s) 2 ity of acetonide 00:00: (two) [place] 0.1 % cream 00 times Medical daily. Branch ketoconazol 2023-0 Yes [id number] Apply to Univers e 2 % 4-05 area(s) ity of shampoo 00:00: once daily [place] 00 as needed Medical for Branch Itching. triamcinolo 2023-0 Yes [id number] Apply to Univers ne 4-05 area(s) 2 ity of acetonide 00:00: (two) [place] 0.1 % cream 00 times Medical daily. Branch ketoconazol 2023-0 Yes [id number] Apply to Univers e 2 % 4-05 area(s) ity of shampoo 00:00: once daily [place] 00 as needed Medical for Branch Itching. triamcinolo 2023-0 Yes [id number] Apply to Univers ne 4-05 area(s) 2 ity of acetonide 00:00: (two) [place] 0.1 % cream 00 times Medical daily. Branch ketoconazol 2023-0 Yes [id number] Apply to Univers e 2 % 4-05 area(s) ity of shampoo 00:00: once daily [place] 00 as needed Medical for Branch Itching. triamcinolo 2023-0 Yes [id number] Apply to Univers ne 4-05 area(s) 2 ity of acetonide 00:00: (two) [place] 0.1 % cream 00 times Medical daily. Branch ketoconazol 2023-0 Yes [id number] Apply to Univers e 2 % 4-05 area(s) ity of shampoo 00:00: once daily [place] 00 as needed Medical for Branch Itching. triamcinolo 2023-0 Yes [id number] Apply to Univers ne 4-05 area(s) 2 ity of acetonide 00:00: (two) [place] 0.1 % cream 00 times Medical daily. Branch ketoconazol 2023-0 Yes [id number] Apply to Univers e 2 % 4-05 area(s) ity of shampoo 00:00: once daily [place] 00 as needed Medical for Branch Itching. triamcinolo 2023-0 Yes [id number] Apply to Univers ne 4-05 area(s) 2 ity of acetonide 00:00: (two) [place] 0.1 % cream 00 times Medical daily. Branch ketoconazol 2023-0 Yes [id number] Apply to Univers e 2 % 4-05 area(s) ity of shampoo 00:00: once daily [place] 00 as needed Medical for Branch Itching. triamcinolo 2023-0 Yes [id number] Apply to Univers ne 4-05 area(s) 2 ity of acetonide 00:00: (two) [place] 0.1 % cream 00 times Medical daily. Branch ketoconazol 2023-0 Yes [id number] Apply to Univers e 2 % 4-05 area(s) ity of shampoo 00:00: once daily [place] 00 as needed Medical for Branch Itching. triamcinolo 2023-0 Yes [id number] Apply to Univers ne 4-05 area(s) 2 ity of acetonide 00:00: (two) [place] 0.1 % cream 00 times Medical daily. Branch ketoconazol 2023-0 Yes [id number] Apply to Univers e 2 % 4-05 area(s) ity of shampoo 00:00: once daily [place] 00 as needed Medical for Branch Itching. triamcinolo 2023-0 Yes [id number] Apply to Univers ne 4-05 area(s) 2 ity of acetonide 00:00: (two) [place] 0.1 % cream 00 times Medical daily. Branch ketoconazol 3-0 Yes [id number] Apply to Univers e 2 % 4-05 area(s) ity of shampoo 00:00: once daily [place] 00 as needed Medical for Branch Itching. triamcinolo 2023-0 Yes [id number] Apply to Univers ne 4-05 area(s) 2 ity of acetonide 00:00: (two) [place] 0.1 % cream 00 times Medical daily. Branch ketoconazol 2023-0 Yes [id number] Apply to Univers e 2 % 4-05 area(s) ity of shampoo 00:00: once daily [place] 00 as needed Medical for Branch Itching. triamcinolo 2023-0 Yes [id number] Apply to Univers ne 4-05 area(s) 2 ity of acetonide 00:00: (two) [place] 0.1 % cream 00 times Medical daily. Branch ondansetron 2023-0 Yes [id number] 4mg Take 1 Univers 4 mg tablet 3-31 tablet by ity of 00:00: mouth [place] 00 every 12 Medical (twelve) Branch hours. ondansetron 2023-0 Yes [id number] 4mg Take 1 Univers 4 mg tablet 3-31 tablet by ity of 00:00: mouth [place] 00 every 12 Medical (twelve) Branch hours. ondansetron 2023-0 Yes [id number] 4mg Take 1 Univers 4 mg tablet 3-31 tablet by ity of 00:00: mouth [place] 00 every 12 Medical (twelve) Branch hours. ondansetron 2023-0 Yes [id number] 4mg Take 1 Univers 4 mg tablet 3-31 tablet by ity of 00:00: mouth [place] 00 every 12 Medical (twelve) Branch hours. ondansetron 2023-0 Yes [id number] 4mg Take 1 Univers 4 mg tablet 3-31 tablet by ity of 00:00: mouth [place] 00 every 12 Medical (twelve) Branch hours. ondansetron 3-0 3- No [id number] 4mg Take 1 Univers 4 mg tablet 3-31 04-07 tablet by it y of 00:00: 00:00 mouth [place] 00 :00 every 12 Medical (twelve) Branch hours. ondansetron 3-0 3- No [id number] 4mg Take 1 Univers 4 mg tablet 3-31 04-07 tablet by it y of 00:00: 00:00 mouth [place] 00 :00 every 12 Medical (twelve) Branch hours. clindamycin 2022-0 Yes Topical, Un evon (CLEOCIN T) 3-23 BID, First it y of 1 % topical 01:00: dose on [place] solution Sat Medical 01/02/23 at Branch 1999, Until Discontinu ed, Routine fluocinolon 2022-0 Yes Topical, Un evon e (SYNALAR) 3-23 BID, First it y of 0.01 % 01:00: dose on [place] solution Sat Medical 01/02/23 at Branch 1999, Until Discontinu ed, Routine traMADoL 2022-0 Yes 50mg 50 mg, Univers (ULTRAM) -22 Oral, ity of tablet 50 18:13: Q6HPRN, [place] mg Starting Medical on Sat Branch 01/02/23 at 1313, Until Discontinu ed, Routine, Pain (scale 4-6) aspirin/steve 3-0 2023- No Take by Un evon icylamide/c 01-02 mouth 2 ity of affeine (BC 15:08: 00:00 (two) [place] HEADACHE 28 :00 times Medical POWDER daily. Branch ORAL) polyethylen 0 Yes 17g 17 g, Unive rs e glycol 01-02 Oral, ity of 3350 powder 14:00: DAILY, [place] 17 g 00 First dose Medical on Sat01/02/23 at 0900, Until Discontinu ed, Routine polyethylen 0 Yes 17g 17 g, Unive rs e glycol 01-02 Oral, ity of 3350 powder 14:00: DAILY, [place] 17 g 00 First dose Medical on Sat01/02/23 at 0900, Until Discontinu ed, Routine alum-mag 0 Yes 30mL 30 mL, Univers hydroxide-s 01-02 Oral, BID, it y of imeth 13:15: First dose [place] (MAALOX 00 (after Medical PLUS / last Branch MAG-AL modificati PLUS) on) on Sat 200-200-20 01/02/23 at mg/5 mL 0815, suspension Until 30 mL Discontinu ed, Routine alum-mag 0 Yes 30mL 30 mL, Univers hydroxide-s 01-02 Oral, BID, it y of imeth 13:15: First dose [place] (MAALOX 00 (after Medical PLUS / last Branch MAG-AL modificati PLUS) on) on Sat 200-200-20 01/02/23 at mg/5 mL 0815, suspension Until 30 mL Discontinu ed, Routine KCL 2022-0 2022- No 40meq 40 mEq, Univers (KLOR-CON 01-02 Oral, ity of M20) tablet 13:15: 12:47 ONCE, 1 [place] 40 mEq 00 :00 dose, On Medical Sat01/02/23 at 0815, Routine aspirin/steve 0 Yes Take by Uni vers icylamide/c 01-02 mouth 2 ity o f affeine (BC 09:16: (two) [place] HEADACHE 18 times Medical POWDER daily. Branch ORAL) alum-mag 0 2022- No 30mL 30 mL, Univer s hydroxide-s 01-02 Oral, ity of imeth 08:53: 13:10 Q6HPRN, [place] (MAALOX 04 :22 Starting Medical PLUS / on Sat MAG-AL 3/22/23 at PLUS) 0353, 200-200-20 Until Wed mg/5 mL 01/02/23 at suspension 0810, 30 mL Routine, Indigestio n pantoprazol 3-0 Yes 40mg 40 mg, Univ ers e 3-22 Oral, BID, ity of (PROTONIX) 01:00: First dose [place] EC tablet 00 on [facility] Medical 40 mg 01/01/23 at [place] 1999, Until Discontinu ed, Routine pantoprazol 2023-0 Yes 40mg 40 mg, Univ ers e 3-22 Oral, BID, ity of (PROTONIX) 01:00: First dose [place] EC tablet 00 on [facility] Medical 40 mg 01/01/23 at [place] 1999, Until Discontinu ed, Routine ondansetron 2023-0 Yes [id number] 4mg Take 1 Univers 4 mg tablet 3-22 tablet by ity of 00:00: mouth [place] 00 every 12 Medical (twelve) Branch hours. ondansetron 2023-0 Yes [id number] 4mg Take 1 Univers 4 mg tablet 3-22 tablet by ity of 00:00: mouth [place] 00 every 12 Medical (twelve) Branch hours. pantoprazol 2023-0 Yes [id number] 40mg Take 1 Univers e 40 mg EC 3-22 tablet by ity of tablet 00:00: mouth in [place] 00 the Medical morning Branch and 1 tablet in the evening. ondansetron 2023-0 Yes [id number] 4mg Take 1 Univers 4 mg tablet 3-22 tablet by ity of 00:00: mouth [place] 00 every 12 Medical (twelve) Branch hours. pantoprazol 2023-0 Yes [id number] 40mg Take 1 Univers e 40 mg EC 3-22 tablet by ity of tablet 00:00: mouth in [place] 00 the Medical morning Branch and 1 tablet in the evening. ondansetron 2023-0 Yes [id number] 4mg Take 1 Univers 4 mg tablet 3-22 tablet by ity of 00:00: mouth [place] 00 every 12 Medical (twelve) Branch hours. pantoprazol 2023-0 Yes [id number] 40mg Take 1 Univers e 40 mg EC 3-22 tablet by ity of tablet 00:00: mouth in [place] 00 the Medical morning Branch and 1 tablet in the evening. ondansetron 2023-0 Yes [id number] 4mg Take 1 Univers 4 mg tablet 3-22 tablet by ity of 00:00: mouth [place] 00 every 12 Medical (twelve) Branch hours. pantoprazol 2023-0 Yes [id number] 40mg Take 1 Univers e 40 mg EC 3-22 tablet by ity of tablet 00:00: mouth in [place] 00 the Medical morning Branch and 1 tablet in the evening. pantoprazol 2023-0 Yes [id number] 40mg Take 1 Univers e 40 mg EC 3-22 tablet by ity of tablet 00:00: mouth in [place] 00 the Medical morning Branch and 1 tablet in the evening. pantoprazol 2023-0 Yes [id number] 40mg Take 1 Univers e 40 mg EC 3-22 tablet by ity of tablet 00:00: mouth in [place] 00 the Medical morning Branch and 1 tablet in the evening. pantoprazol 2023-0 Yes [id number] 40mg Take 1 Univers e 40 mg EC 3-22 tablet by ity of tablet 00:00: mouth in [place] [address] the [facility] morning [place] and 1 tablet in the evening. pantoprazol 2023-0 Yes [id number] 40mg Take 1 Univers e 40 mg EC 3-22 tablet by ity of tablet 00:00: mouth in [place] [address] the [facility] morning [place] and 1 tablet in the evening. pantoprazol 2023-0 Yes [id number] 40mg Take 1 Univers e 40 mg EC 3-22 tablet by ity of tablet 00:00: mouth in [place] [address] the [facility] morning [place] and 1 tablet in the evening. pantoprazol 2023-0 Yes [id number] 40mg Take 1 Univers e 40 mg EC 3-22 tablet by ity of tablet 00:00: mouth in [place] [address] the [facility] morning [place] and 1 tablet in the evening. pantoprazol 2023-0 Yes [id number] 40mg Take 1 Univers e 40 mg EC 3-22 tablet by ity of tablet 00:00: mouth in [place] [address] the [facility] morning [place] and 1 tablet in the evening. pantoprazol 2023-0 Yes [id number] 40mg Take 1 Univers e 40 mg EC 3-22 tablet by ity of tablet 00:00: mouth in [place] [address] the [facility] morning [place] and 1 tablet in the evening. pantoprazol 2023-0 Yes [id number] 40mg Take 1 Univers e 40 mg EC 3-22 tablet by ity of tablet 00:00: mouth in [address] morning [place] and 1 tablet in the evening. pantoprazol 2023-0 Yes [id number] 40mg Take 1 Univers e 40 mg EC 3-22 tablet by ity of tablet 00:00: mouth in [place] 00 the Medical morning Branch and 1 tablet in the evening. pantoprazol 2023-0 Yes [id number] 40mg Take 1 Univers e 40 mg EC 3-22 tablet by ity of tablet 00:00: mouth in [place] 00 the Medical morning Branch and 1 tablet in the evening. pantoprazol 2023-0 Yes [id number] 40mg Take 1 Univers e 40 mg EC 3-22 tablet by ity of tablet 00:00: mouth in [place] 00 the Medical morning Branch and 1 tablet in the evening. pantoprazol 2023-0 Yes [id number] 40mg Take 1 Univers e 40 mg EC 3-22 tablet by ity of tablet 00:00: mouth in [place] [address] the Medical morning Branch and 1 tablet in the evening. pantoprazol 2023-0 Yes [id number] 40mg Take 1 Univers e 40 mg EC 3-22 tablet by ity of tablet 00:00: mouth in [place] [address] the Medical morning Branch and 1 tablet in the evening. pantoprazol 3-0 Yes [id number] 40mg Take 1 Univers e 40 mg EC 3-22 tablet by ity of tablet 00:00: mouth in [place] 00 the Medical morning Branch and 1 tablet in the evening. pantoprazol 2023-0 Yes [id number] 40mg Take 1 Univers e 40 mg EC 3-22 tablet by ity of tablet 00:00: mouth in [place] [address] the [facility] morning Branch and 1 tablet in the evening. pantoprazol 2023-0 Yes [id number] 40mg Take 1 Univers e 40 mg EC 3-22 tablet by ity of tablet 00:00: mouth in [place] [address] the [facility] morning Branch and 1 tablet in the evening. pantoprazol 3-0 Yes [id number] 40mg Take 1 Univers e 40 mg EC 3-22 tablet by ity of tablet 00:00: mouth in [place] [address] the [facility] morning Branch and 1 tablet in the evening. ondansetron 3-0 3- No [id number] 4mg Take 1 Univers 4 mg tablet 3-22 03-31 tablet by it y of 00:00: 00:00 mouth [place] 00 :00 every 12 Medical [facility] Branch hours. ondansetron 3-0 2022- No [id number] 4mg Take 1 Univers 4 mg tablet 01-02 tablet by it y of 00:00: 00:00 mouth [place] 00 :00 every 12 Medical (twelve) Branch hours. ondansetron 2022- No [id number] 4mg Take 1 Univers 4 mg tablet [...] en ADULT 01-01 Infusion, ity o f (OFIRMEV) 03:00: 19:31 at 297.2 [place] as injection [...] Discontinu ed, Routine, Pain (scale 4-6) HYDROcodone 0 Yes 1{tbl} 1 tablet, [facility] -acetaminop 3-20 [...] On Sat12/31/22 at 0700, Routine morpHINE (2 2022- No 4mg 4 mg, Slow [facility] mg/mL) 12-31 IV Push, ity of injection 4 11:08: 18:51 Q4HPRN, [place] mg 04 :43 Starting Medical on Sat Branch 12/31/22 at 0608, Until Sat01/01/23 at 1351, Routine, [place] pain potassium 2022- No 20mmol 20 mmol, U nivers phosphate 12-31 IV ity of 20 mmol in 07:15: 13:24 Piggyback, [place] NaCl 0.9% 00 :00 ONCE, 1 Medical [...] Medical Infusion, Branch CONTINUOUS , Starting on [place] 12/30/22 at 2315, Until Sat12/31/22 at 1017, Routine morpHINE (2 2022- No 2mg 2 mg, Slow [facility] mg/mL) 12-31 IV Push, ity of injection 2 03:59: 11:09 Q4HPRN, [place] mg 50 :30 Starting Medical on [place] Branch 12/30/22 at 2259, Until Sat12/31/22 at 0609, Routine, [place] pain acetaminoph 2022- No 749mg 749 mg, IV [facility] en ADULT 12-31 Infusion, ity o f (OFIRMEV) 03:59: 19:50 at 299.6 [place] injection 13 :46 mL/hr Medical 749 mg Administer Branch over 15 Minutes, Q8HPRN, Starting on [place] 12/30/22 at 2259, Until Sat12/31/22 at 1450, Routine, Pain (scale 1-3)
In dication: Non-periop erative Patient
Approved by: Per Policy (NPO Status) ondansetron 2022-0 Yes 4mg 4 mg, Slow [facility] (ZOFRAN 3-20 IV Push, ity of (PF)) 03:57: Q6HPRN, [place] injection 4 56 Starting Medi wanda mg on [facility] 12/30/22 at 2257, Until Discontinu ed, Routine, Nausea and Vomiting (N/V) ondansetron 2022-0 Yes 4mg 4 mg, Slow [facility] (ZOFRAN 3-20 IV Push, ity of (PF)) 03:57: Q6HPRN, [place] injection 4 56 Starting Medi wanda mg on [facility] 12/30/22 at 2257, Until Discontinu ed, Routine, Nausea and Vomiting (N/V) FENTanyl PF 2022- No 50ug 50 mcg, Un evon (SUBLIMAZE 12-31 Slow IV ity o f (PF)) 02:36: 02:37 Push, [place] injection 00 :00 ONCE, 1 Medical 50 mcg dose, On Branch [place] 12/30/22 at 2145, Routine iopamidol 2022- No [id number] 100mL 100 mL, [facility] (ISOVUE 12-31 Intravenou ity o f 370-500 mL) 02:15: 02:15 s, ONCE, 1 [place] injection 00 :00 dose, On Medica l 100 mL [facility] 12/30/22 at 2115, Routine pantoprazol 2022- No 8mg/h 8 mg/hr U nivers e 12-30 (50 ity of (PROTONIX) 23:45: 04:02 mL/hr), IV [place] 80 mg in 00 :21 Infusion, Medica l NaCl 0.9% CONTINUOUS Bran ch (NS) 500 mL , Starting infusion on [place] 12/30/22 at 1845 pantoprazol 2022- No 80mg 80 mg, IV [facility] e 12-30 Push, ity of (PROTONIX) 23:30: 23:32 ONCE, 1 [place] 80 mg in 00 :00 dose, On Medical NaCl 0.9% [place] Branch (NS) 20 mL 12/30/22 at syringe 1830, Administer over 2 Minutes, 20 mL NaCl 0.9% 2022- No 1000mL at 999 Uni vers (NS) bolus 12-30-20 mL/hr, ity of infusion 23:15: 01:23 1,000 mL, [place] 1,000 mL 00 :00 IV Medical Infusion, Branch ONCE, 1 dose, On 12/30/22 at 1815, JESSICA ondansetron 2022- No 4mg 4 mg, Slow [facility] (ZOFRAN 12-30 IV Push, ity of (PF)) 22:45: 23:07 ONCE, 1 [place] injection 4 00 :00 dose, On Medi wanda mg [place] Branch 12/30/22 at 1745, JESSICA morpHINE (4 2022- No 4mg 4 mg, Slow [facility] mg/mL) 12-30 IV Push, ity of injection 4 22:45: 23:07 ONCE, 1 [place] mg 00 :00 dose, On Medical [place] [facility] 12/30/22 at 1745, STAT pantoprazol Yes [id number] 40mg Take 1 [facility] e 40 mg EC 2-24 tablet by ity of tablet 00:00: mouth [place] 00 every Medical morning Branch and evening. pantoprazol Yes [id number] 40mg Take 1 [facility] e 40 mg EC 2-24 tablet by ity of tablet 00:00: mouth [place] 00 every Medical morning Branch and evening. pantoprazol 0 2022- No [id number] 40mg Take 1 [facility] e 40 mg EC 2-24 - tablet by ity of tablet 00:00: 00:00 mouth [place] 00 :00 every Medical morning Branch and evening. doxepin 50 Yes [id number] 50mg Take 1 [facility] mg capsule 2-17 capsule by ity of 00:00: mouth at [place] 00 bedtime. Medical Branch pantoprazol Yes [id number] 40mg Take 1 [facility] e 40 mg EC 2-17 tablet by ity of tablet 00:00: mouth [place] 00 every Medical morning Branch and evening. docusate Yes [id number] 100mg Take 1 Un evon (COLACE) 2-17 capsule by ity o f 100 mg 00:00: mouth in [place] capsule 00 the Medical morning. Branch doxepin 50 Yes [id number] 50mg Take 1 [facility] mg capsule 2-17 capsule by ity of 00:00: mouth at [place] 00 bedtime. Medical Branch pantoprazol Yes [id number] 40mg Take 1 [facility] e 40 mg EC 2-17 tablet by ity of tablet 00:00: mouth [place] 00 every Medical morning Branch and evening. docusate 0 Yes [id number] 100mg Take 1 Un evon (COLACE) 2-17 capsule by ity o f 100 mg 00:00: mouth in [place] capsule 00 the Medical morning. Branch doxepin 50 Yes [id number] 50mg Take 1 [facility] mg capsule 2-17 capsule by ity of 00:00: mouth at [place] 00 bedtime. Medical Branch docusate Yes [id number] 100mg Take 1 Un evon (COLACE) 2-17 capsule by ity o f 100 mg 00:00: mouth in [place] capsule 00 the Medical morning. Branch doxepin 50 Yes [id number] 50mg Take 1 [facility] mg capsule 2-17 capsule by ity of 00:00: mouth at [place] 00 bedtime. Medical Branch docusate Yes [id number] 100mg Take 1 Un evon (COLACE) 2-17 capsule by ity o f 100 mg 00:00: mouth in [place] capsule 00 the Medical morning. Branch doxepin 50 Yes [id number] 50mg Take 1 [facility] mg capsule 2-17 capsule by ity of 00:00: mouth at [place] 00 bedtime. Medical Branch docusate Yes [id number] 100mg Take 1 Un evon (COLACE) 2-17 capsule by ity o f 100 mg 00:00: mouth in [place] capsule 00 the Medical morning. Branch doxepin 50 Yes [id number] 50mg Take 1 [facility] mg capsule 2-17 capsule by ity of 00:00: mouth at [place] 00 bedtime. Medical Branch docusate Yes [id number] 100mg Take 1 Un evon (COLACE) 2-17 capsule by ity o f 100 mg 00:00: mouth in [place] capsule 00 the Medical morning. Branch doxepin 50 0 Yes [id number] 50mg Take 1 [facility] mg capsule 2-17 capsule by ity of 00:00: mouth at [place] 00 bedtime. Medical Branch docusate 0 Yes [id number] 100mg Take 1 Un evon (COLACE) 2-17 capsule by ity o f 100 mg 00:00: mouth in [place] capsule 00 the Medical morning. Branch doxepin 50 Yes [id number] 50mg Take 1 [facility] mg capsule 2-17 capsule by ity of 00:00: mouth at [place] 00 bedtime. Medical Branch docusate Yes [id number] 100mg Take 1 Un evon (COLACE) 2-17 capsule by ity o f 100 mg 00:00: mouth in [place] capsule 00 the morning. Branch doxepin 50 Yes [id number] 50mg Take 1 [facility] mg capsule 2-17 capsule by ity of 00:00: mouth at [place] 00 bedtime. Medical Branch docusate Yes [id number] 100mg Take 1 Un evon (COLACE) 2-17 capsule by ity o f 100 mg 00:00: mouth in [place] capsule 00 the Medical morning. Branch doxepin 50 Yes [id number] 50mg Take 1 [facility] mg capsule 2-17 capsule by ity of 00:00: mouth at [place] 00 bedtime. Medical Branch docusate Yes [id number] 100mg Take 1 Un evon (COLACE) 2-17 capsule by ity o f 100 mg 00:00: mouth in [place] capsule the Medical morning. Branch doxepin 50 0 Yes [id number] 50mg Take 1 [facility] mg capsule 2-17 capsule by ity of 00:00: mouth at [place] 00 bedtime. Medical Branch docusate 0 Yes [id number] 100mg Take 1 Un evon (COLACE) 2-17 capsule by ity o f 100 mg 00:00: mouth in [place] capsule 00 the Medical morning. Branch doxepin 50 0 Yes [id number] 50mg Take 1 [facility] mg capsule 2-17 capsule by ity of 00:00: mouth at [place] 00 bedtime. Medical Branch docusate 0 Yes [id number] 100mg Take 1 Un evon (COLACE) 2-17 capsule by ity o f 100 mg 00:00: mouth in [place] capsule 00 the Medical morning. Branch doxepin 50 0 Yes [id number] 50mg Take 1 [facility] mg capsule 2-17 capsule by ity of 00:00: mouth at [place] 00 bedtime. Medical Branch docusate 0 Yes [id number] 100mg Take 1 Un evon (COLACE) 2-17 capsule by ity o f 100 mg 00:00: mouth in [place] capsule 00 the Medical morning. Branch doxepin 50 0 Yes [id number] 50mg Take 1 [facility] mg capsule 2-17 capsule by ity of 00:00: mouth at [place] 00 bedtime. Medical Branch docusate 0 Yes [id number] 100mg Take 1 Un evon (COLACE) 2-17 capsule by ity o f 100 mg 00:00: mouth in [place] capsule 00 the Medical morning. Branch doxepin 50 Yes [id number] 50mg Take 1 [facility] mg capsule 2-17 capsule by ity of 00:00: mouth at [place] 00 bedtime. Medical Branch docusate Yes [id number] 100mg Take 1 Un evon (COLACE) 2-17 capsule by ity o f 100 mg 00:00: mouth in [place] capsule the Medical morning. Branch doxepin 50 0 Yes [id number] 50mg Take 1 [facility] mg capsule 2-17 capsule by ity of 00:00: mouth at [place] 00 bedtime. Medical Branch docusate 0 Yes [id number] 100mg Take 1 Un evon (COLACE) 2-17 capsule by ity o f 100 mg 00:00: mouth in [place] capsule 00 the Medical morning. Branch doxepin 50 0 Yes [id number] 50mg Take 1 [facility] mg capsule 2-17 capsule by ity of 00:00: mouth at [place] 00 bedtime. Medical Branch docusate 0 Yes [id number] 100mg Take 1 Un evon (COLACE) 2-17 capsule by ity o f 100 mg 00:00: mouth in [place] capsule 00 the Medical morning. Branch doxepin 50 0 Yes [id number] 50mg Take 1 [facility] mg capsule 2-17 capsule by ity of 00:00: mouth at [place] 00 bedtime. Medical Branch docusate 0 Yes [id number] 100mg Take 1 Un evon (COLACE) 2-17 capsule by ity o f 100 mg 00:00: mouth in [place] capsule 00 the Medical morning. Branch doxepin 50 0 Yes [id number] 50mg Take 1 [facility] mg capsule 2-17 capsule by ity of 00:00: mouth at [place] [address] bedtime. Medical Branch doxepin 50 0 Yes [id number] 50mg Take 1 [facility] mg capsule 2-17 capsule by ity of 00:00: mouth at [place] [address] bedtime. Medical Branch doxepin 50 0 Yes [id number] 50mg Take 1 [facility] mg capsule 2-17 capsule by ity of 00:00: mouth at [place] [address] bedtime. Medical Branch doxepin 50 0 Yes [id number] 50mg Take 1 [facility] mg capsule 2-17 capsule by ity of 00:00: mouth at [place] [address] bedtime. Medical Branch doxepin 50 0 Yes [id number] 50mg Take 1 [facility] mg capsule 2-17 capsule by ity of 00:00: mouth at [place] [address] bedtime. Medical Branch doxepin 50 0 Yes [id number] 50mg Take 1 [facility] mg capsule 2-17 capsule by ity of 00:00: mouth at [place] [address] bedtime. Medical Branch doxepin 50 0 Yes [id number] 50mg Take 1 [facility] mg capsule 2-17 capsule by ity of 00:00: mouth at [place] [address] bedtime. Medical Branch doxepin 50 2022- No [id number] 50mg Take 1 [facility] mg capsule 2-17 08-17 capsule by it y of 00:00: 00:00 mouth at [place] 00 :00 bedtime. Medical Branch docusate 2022-0 2022- No [id number] 100mg Take 1 U nivers (COLACE) 2-17 05-17 capsule by ity of 100 mg 00:00: 00:00 mouth in [place] capsule 00 :00 the Medical morning. Branch clindamycin 2022-0 2022- No [id number] 300mg Take 1 [facility] 300 mg 2-17 02-25 capsule by ity of capsule 00:00: 05:59 mouth in [place] 00 :00 the Medical morning Branch and 1 capsule at noon and 1 capsule in the evening. Do all this for 7 days. clindamycin 2022- No [id number] 300mg Take 1 [facility] 300 mg 11-30 capsule by ity of capsule 00:00: 05:59 mouth in [place] 00 :00 the Medical morning Branch and 1 capsule at noon and 1 capsule in the evening. Do all this for 7 days. clindamycin 2022- No [id number] 300mg Take 1 [facility] 300 mg 11-30 capsule by ity of capsule 00:00: 05:59 mouth in [place] 00 :00 the Medical morning Branch and 1 capsule at noon and 1 capsule in the evening. Do all this for 7 days. pantoprazol 2022- No [id number] 40mg Take 1 [facility] e 40 mg EC 11-30 tablet by ity of tablet 00:00: 00:00 mouth [place] 00 :00 every Medical morning Branch and evening. naproxen 2021-10 Yes [id number] TAKE 1 [facility] 500 mg 2-29 [id number] TABLET BY ity of tablet 00:00: MOUTH [place] 00 TWICE Medical DAILY Branch NEEDED FOR MODERATE PAIN. Use sparingly due to side effects ergocalcife 2021-10 Yes [id number] Take 1 [facility] rol, 2-29 capsule by ity of vitamin d2, 00:00: mouth [place] 1,250 mcg 00 weekly. Medical (50,000 Branch unit) capsule naproxen 2021-10 Yes [id number] TAKE 1 [facility] 500 mg 2-29 [id number] TABLET BY ity of tablet 00:00: MOUTH [place] 00 TWICE Medical DAILY Branch NEEDED FOR MODERATE PAIN. Use sparingly due to side effects ergocalcife 2021-10 Yes [id number] Take 1 [facility] rol, 2-29 capsule by ity of vitamin d2, 00:00: mouth [place] 1,250 mcg 00 weekly. Medical (50,000 Branch unit) capsule naproxen 2021-10 Yes [id number] TAKE 1 [facility] 500 mg 2-29 [id number] TABLET BY ity of tablet 00:00: MOUTH [place] 00 TWICE Medical DAILY Branch NEEDED FOR MODERATE PAIN. Use sparingly due to side effects ergocalcife 2021-10 Yes [id number] Take 1 [facility] rol, 2-29 capsule by ity of vitamin d2, 00:00: mouth [place] 1,250 mcg 00 weekly. Medical (50,000 Branch unit) capsule naproxen 2021-10 Yes [id number] TAKE 1 [facility] 500 mg 2-29 [id number] TABLET BY ity of tablet 00:00: MOUTH [place] 00 TWICE Medical DAILY Branch NEEDED FOR MODERATE PAIN. Use sparingly due to side effects ergocalcife 2021-10 Yes [id number] Take 1 [facility] rol, 2-29 capsule by ity of vitamin d2, 00:00: mouth [place] 1,250 mcg 00 weekly. Medical (50,000 Branch unit) capsule ergocalcife 2021-10 Yes [id number] Take 1 [facility] rol, 2-29 capsule by ity of vitamin d2, 00:00: mouth [place] 1,250 mcg 00 weekly. Medical (50,000 Branch unit) capsule ergocalcife 2021-10 Yes [id number] Take 1 [facility] rol, 2-29 capsule by ity of vitamin d2, 00:00: mouth [place] 1,250 mcg 00 weekly. Medical (50,000 Branch unit) capsule ergocalcife 2021-10 Yes [id number] Take 1 [facility] rol, 2-29 capsule by ity of vitamin d2, 00:00: mouth [place] 1,250 mcg 00 weekly. Medical (50,000 Branch unit) capsule ergocalcife 2021-10 Yes [id number] Take 1 [facility] rol, 2-29 capsule by ity of vitamin d2, 00:00: mouth [place] 1,250 mcg 00 weekly. Medical (50,000 Branch unit) capsule ergocalcife 2021-10 Yes [id number] Take 1 [facility] rol, 2-29 capsule by ity of vitamin d2, 00:00: mouth [place] 1,250 mcg 00 weekly. Medical (50,000 Branch unit) capsule ergocalcife 2021-10 Yes [id number] Take 1 [facility] rol, 2-29 capsule by ity of vitamin d2, 00:00: mouth [place] 1,250 mcg 00 weekly. Medical (50,000 Branch unit) capsule ergocalcife 2021-10 Yes [id number] Take 1 [facility] rol, 2-29 capsule by ity of vitamin d2, 00:00: mouth [place] 1,250 mcg 00 weekly. Medical (50,000 Branch unit) capsule ergocalcife 2021- Yes [id number] Take 1 [facility] rol, 2-29 capsule by ity of vitamin d2, 00:00: mouth [place] 1,250 mcg 00 weekly. Medical (50,000 Branch unit) capsule ergocalcife 2021- Yes [id number] Take 1 [facility] rol, 2-29 capsule by ity of vitamin d2, 00:00: mouth [place] 1,250 mcg 00 weekly. Medical (50,000 Branch unit) capsule ergocalcife 2021- Yes [id number] Take 1 [facility] rol, 2-29 capsule by ity of vitamin d2, 00:00: mouth [place] 1,250 mcg 00 weekly. Medical (50,000 Branch unit) capsule ergocalcife 2021- Yes [id number] Take 1 [facility] rol, 2-29 capsule by ity of vitamin d2, 00:00: mouth [place] 1,250 mcg 00 weekly. Medical (50,000 Branch unit) capsule ergocalcife 2021- Yes [id number] Take 1 [facility] rol, 2-29 capsule by ity of vitamin d2, 00:00: mouth [place] 1,250 mcg 00 weekly. Medical (50,000 Branch unit) capsule ergocalcife 2021- Yes [id number] Take 1 [facility] rol, 2-29 capsule by ity of vitamin d2, 00:00: mouth [place] 1,250 mcg 00 weekly. Medical (50,000 Branch unit) capsule ergocalcife 2021- Yes [id number] Take 1 [facility] rol, 2-29 capsule by ity of vitamin d2, 00:00: mouth [place] 1,250 mcg 00 weekly. Medical (50,000 Branch unit) capsule ergocalcife 2021- Yes [id number] Take 1 [facility] rol, 2-29 capsule by ity of vitamin d2, 00:00: mouth [place] 1,250 mcg 00 weekly. Medical (50,000 Branch unit) capsule ergocalcife 2021- Yes [id number] Take 1 [facility] rol, 2-29 capsule by ity of vitamin d2, 00:00: mouth [place] 1,250 mcg 00 weekly. Medical (50,000 Branch unit) capsule ergocalcife 2021 Yes [id number] Take 1 [facility] rol, 2-29 capsule by ity of vitamin d2, 00:00: mouth [place] 1,250 mcg 00 weekly. Medical (50,000 Branch unit) capsule ergocalcife 2021-10 Yes [id number] Take 1 [facility] rol, 2-29 capsule by ity of vitamin d2, 00:00: mouth [place] 1,250 mcg 00 weekly. Medical (50,000 Branch unit) capsule ergocalcife 2021-10 Yes [id number] Take 1 [facility] rol, 2-29 capsule by ity of vitamin d2, 00:00: mouth [place] 1,250 mcg 00 weekly. Medical (50,000 Branch unit) capsule ergocalcife 2021-10 Yes [id number] Take 1 [facility] rol, 2-29 capsule by ity of vitamin d2, 00:00: mouth [place] 1,250 mcg 00 weekly. Medical (50,000 Branch unit) capsule ergocalcife 2021-10 Yes [id number] Take 1 [facility] rol, 2-29 capsule by ity of vitamin d2, 00:00: mouth [place] 1,250 mcg 00 weekly. Medical (50,000 Branch unit) capsule ergocalcife 2021-10 Yes [id number] Take 1 [facility] rol, 2-29 capsule by ity of vitamin d2, 00:00: mouth [place] 1,250 mcg 00 weekly. Medical (50,000 Branch unit) capsule ergocalcife 2021-10 Yes [id number] Take 1 [facility] rol, 2-29 capsule by ity of vitamin d2, 00:00: mouth [place] 1,250 mcg 00 weekly. Medical (50,000 Branch unit) capsule naproxen 2021-10- No [id number] TAKE 1 [facility] 500 mg 2-01-0208 TABLET BY ity of tablet 00:00: 00:00 MOUTH [place] 00 :00 TWICE Medical DAILY Branch NEEDED FOR MODERATE PAIN. Use sparingly due to side effects naproxen 2021-10- No [id number] TAKE 1 [facility] 500 mg 2-29 01-02 40522 TABLET BY ity of tablet 00:00: 00:00 MOUTH [place] 00 :00 TWICE Medical DAILY Branch NEEDED FOR MODERATE PAIN. Use sparingly due to side effects ergocalcife 2021-10 Yes [id number] Take 1 [facility] rol, 2- capsule by ity of vitamin d2, 00:00: mouth [place] 1,250 mcg 00 weekly. Medical (50,000 Branch unit) capsule ergocalcife 2021-10- No [id number] Take 1 [facility] rol, 2-28 - capsule by ity of vitamin d2, 00:00: 00:00 mouth [place] 1,250 mcg 00 :00 weekly. Medical (50,000 Branch unit) capsule naproxen 2021-10 Yes [id number] TAKE 1 [facility] 500 mg 10-22 [id number] TABLET BY ity of tablet 00:00: MOUTH [place] 00 TWICE Medical DAILY Branch NEEDED FOR MODERATE PAIN. Use sparingly due to side effects naproxen 2021-10 Yes [id number] TAKE 1 [facility] 500 mg 10-22 [id number] TABLET BY ity of tablet 00:00: MOUTH [place] 00 TWICE Medical DAILY Branch NEEDED FOR MODERATE PAIN. Use sparingly due to side effects naproxen 2021-10 Yes [id number] TAKE 1 [facility] 500 mg 10-22 [id number] TABLET BY ity of tablet 00:00: MOUTH [place] 00 TWICE Medical DAILY Branch NEEDED FOR MODERATE PAIN. Use sparingly due to side effects naproxen 2021-10 Yes [id number] TAKE 1 [facility] 500 mg 10-22 [id number] TABLET BY ity of tablet 00:00: MOUTH [place] 00 TWICE Medical DAILY Branch NEEDED FOR MODERATE PAIN. Use sparingly due to side effects naproxen 2021-10- No [id number] TAKE 1 [facility] 500 mg 10-22 [id number] TABLET BY ity of tablet 00:00: 00:00 MOUTH [place] 00 :00 TWICE Medical DAILY Branch NEEDED FOR MODERATE PAIN. Use sparingly due to side effects polyethylen 2021-10 Yes [id number] 1{packe Take 1 [facility] e glycol 0-14 t} Packet by ity of 3350 17 00:00: mouth 2 [place] gram powder 00 (two) Medical times Branch daily as needed for Constipati on. pantoprazol 2021-10 Yes [id number] 40mg Take 1 [facility] e 40 mg EC 0-14 tablet by ity of tablet 00:00: mouth [place] 00 every Medical morning Branch and evening. docusate 2021-10 Yes [id number] 100mg Take 1 Un evon (COLACE) 0-14 capsule by ity o f 100 mg 00:00: mouth in [place] capsule 00 the Medical morning. Branch polyethylen 2021-10 Yes [id number] 1{packe Take 1 [facility] e glycol 0-14 t} Packet by ity of 3350 17 00:00: mouth 2 [place] gram powder 00 (two) Medical times Branch daily as needed for Constipati on. pantoprazol 2021-10 Yes [id number] 40mg Take 1 [facility] e 40 mg EC 0-14 tablet by ity of tablet 00:00: mouth [place] 00 every Medical morning Branch and evening. docusate 2021-10 Yes [id number] 100mg Take 1 Un evon (COLACE) 0-14 capsule by ity o f 100 mg 00:00: mouth in [place] capsule 00 the Medical morning. Branch polyethylen 2021-10 Yes [id number] 1{packe Take 1 [facility] e glycol 0-14 t} Packet by ity of 3350 17 00:00: mouth 2 [place] gram powder 00 (two) Medical times Branch daily as needed for Constipati on. pantoprazol 2021-10 Yes [id number] 40mg Take 1 [facility] e 40 mg EC 0-14 tablet by ity of tablet 00:00: mouth [place] 00 every Medical morning Branch and evening. docusate 2021-10 Yes [id number] 100mg Take 1 Un evon (COLACE) 0-14 capsule by ity o f 100 mg 00:00: mouth in [place] capsule 00 the Medical morning. Branch polyethylen 2021-10 Yes [id number] 1{packe Take 1 [facility] e glycol 0-14 t} Packet by ity of 3350 17 00:00: mouth 2 [place] gram powder 00 (two) Medical times Branch daily as needed for Constipati on. pantoprazol 2021-10 Yes [id number] 40mg Take 1 [facility] e 40 mg EC 0-14 tablet by ity of tablet 00:00: mouth [place] 00 every Medical morning Branch and evening. docusate 2021-10 Yes [id number] 100mg Take 1 Un evon (COLACE) 0-14 capsule by ity o f 100 mg 00:00: mouth in [place] capsule 00 the Medical morning. Branch polyethylen 2021-10 Yes [id number] 1{packe Take 1 [facility] e glycol 0-14 t} Packet by ity of 3350 17 00:00: mouth 2 [place] gram powder 00 (two) Medical times Branch daily as needed for Constipati on. pantoprazol 2021-10 Yes [id number] 40mg Take 1 [facility] e 40 mg EC 0-14 tablet by ity of tablet 00:00: mouth [place] 00 every Medical morning Branch and evening. docusate 2021-10 Yes [id number] 100mg Take 1 Un evon (COLACE) 0-14 capsule by ity o f 100 mg 00:00: mouth in [place] capsule 00 the Medical morning. Branch polyethylen 2021-10 Yes [id number] 1{packe Take 1 [facility] e glycol 0-14 t} Packet by ity of 3350 17 00:00: mouth 2 [place] gram powder 00 (two) Medical times Branch daily as needed for Constipati on. pantoprazol 2021-10 Yes [id number] 40mg Take 1 [facility] e 40 mg EC 0-14 tablet by ity of tablet 00:00: mouth [place] 00 every Medical morning Branch and evening. docusate 2021-10 Yes [id number] 100mg Take 1 Un evon (COLACE) 0-14 capsule by ity o f 100 mg 00:00: mouth in [place] capsule 00 the Medical morning. Branch polyethylen 2021-10 Yes [id number] 1{packe Take 1 [facility] e glycol 0-14 t} Packet by ity of 3350 17 00:00: mouth 2 [place] gram powder 00 (two) Medical times Branch daily as needed for Constipati on. pantoprazol 2021-10 Yes [id number] 40mg Take 1 [facility] e 40 mg EC 0-14 tablet by ity of tablet 00:00: mouth [place] 00 every Medical morning Branch and evening. docusate 2021-10 Yes [id number] 100mg Take 1 Un evon (COLACE) 0-14 capsule by ity o f 100 mg 00:00: mouth in [place] capsule 00 the Medical morning. Branch polyethylen 2021-10 Yes [id number] 1{packe Take 1 [facility] e glycol 0-14 t} Packet by ity of 3350 17 00:00: mouth 2 [place] gram powder 00 (two) Medical times Branch daily as needed for Constipati on. pantoprazol 2021-10 Yes [id number] 40mg Take 1 [facility] e 40 mg EC 0-14 tablet by ity of tablet 00:00: mouth [place] 00 every Medical morning Branch and evening. docusate 2021-10 Yes [id number] 100mg Take 1 Un evon (COLACE) 0-14 capsule by ity o f 100 mg 00:00: mouth in [place] capsule 00 the Medical morning. Branch polyethylen 2021-10 Yes [id number] 1{packe Take 1 [facility] e glycol 0-14 t} Packet by ity of 3350 17 00:00: mouth 2 [place] gram powder 00 (two) Medical times Branch daily as needed for Constipati on. pantoprazol 2021-10 Yes [id number] 40mg Take 1 [facility] e 40 mg EC 0-14 tablet by ity of tablet 00:00: mouth [place] 00 every Medical morning Branch and evening. docusate 2021-10 Yes [id number] 100mg Take 1 Un evon (COLACE) 0-14 capsule by ity o f 100 mg 00:00: mouth in [place] capsule 00 the Medical morning. Branch polyethylen 2021-10 Yes [id number] 1{packe Take 1 [facility] e glycol 0-14 t} Packet by ity of 3350 17 00:00: mouth 2 [place] gram powder 00 (two) Medical times Branch daily as needed for Constipati on. pantoprazol 2021-10 Yes [id number] 40mg Take 1 [facility] e 40 mg EC 0-14 tablet by ity of tablet 00:00: mouth [place] 00 every Medical morning Branch and evening. docusate 2021-10 Yes [id number] 100mg Take 1 Un evon (COLACE) 0-14 capsule by ity o f 100 mg 00:00: mouth in [place] capsule 00 the Medical morning. Branch polyethylen 2021-10 Yes [id number] 1{packe Take 1 [facility] e glycol 0-14 t} Packet by ity of 3350 17 00:00: mouth 2 [place] gram powder 00 (two) Medical times Branch daily as needed for Constipati on. polyethylen 2021-10 Yes [id number] 1{packe Take 1 [facility] e glycol 0-14 t} Packet by ity of 3350 17 00:00: mouth 2 [place] gram powder 00 (two) Medical times Branch daily as needed for Constipati on. polyethylen 2021-10 Yes [id number] 1{packe Take 1 [facility] e glycol 0-14 t} Packet by ity of 3350 17 00:00: mouth 2 [place] gram powder 00 (two) Medical times Branch daily as needed for Constipati on. polyethylen 2021-10 Yes [id number] 1{packe Take 1 [facility] glycol 0-14 t} Packet by [facility]y of 3350 17 00:00: mouth 2 [place] gram powder 00 (two) Medical times Branch daily as needed for Constipati on. polyethylen 2021-10 Yes [id number] 1{packe Take 1 [facility] glycol 0-14 t} Packet by ity of 3350 17 00:00: mouth 2 [place] gram powder 00 (two) Medical times Branch daily as needed for Constipati on. polyethylen 2021-10 Yes [id number] 1{packe Take 1 [facility] glycol 0-14 t} Packet by ity of 3350 17 00:00: mouth 2 [place] gram powder 00 (two) Medical times Branch daily as needed for Constipati on. polyethylen 2021-10 Yes [id number] 1{packe Take 1 [facility] glycol 0-14 t} Packet by ity of 3350 17 00:00: mouth 2 [place] gram powder 00 (two) Medical times Branch daily as needed for Constipati on. polyethylen 2021-10 Yes [id number] 1{packe Take 1 [facility] glycol 0-14 t} Packet by [facility]y of 3350 17 00:00: mouth 2 [place] gram powder 00 (two) Medical times Branch daily as needed for Constipati on. polyethylen 2021-10 Yes [id number] 1{packe Take 1 [facility] glycol 0-14 t} Packet by ity of 3350 17 00:00: mouth 2 [place] gram powder 00 (two) Medical times Branch daily as needed for Constipati on. polyethylen 2021-10 Yes [id number] 1{packe Take 1 [facility] glycol 0-14 t} Packet by ity of 3350 17 00:00: mouth 2 [place] gram powder 00 (two) Medical times Branch daily as needed for Constipati on. polyethylen 2021-10 Yes [id number] 1{packe Take 1 [facility] glycol 0-14 t} Packet by ity of 3350 17 00:00: mouth 2 [place] gram powder 00 (two) Medical times Branch daily as needed for Constipati on. polyethylen 2021-10 Yes [id number] 1{packe Take 1 [facility] glycol 0-14 t} Packet by [facility]y of 3350 17 00:00: mouth 2 [place] gram powder 00 (two) Medical times Branch daily as needed for Constipati on. polyethylen 2021-10 Yes [id number] 1{packe Take 1 [facility] glycol 0-14 t} Packet by ity of 3350 17 00:00: mouth 2 [place] gram powder 00 (two) Medical times Branch daily as needed for Constipati on. polyethylen 2021-10 Yes [id number] 1{packe Take 1 [facility] glycol 0-14 t} Packet by [facility]y of 3350 17 00:00: mouth 2 [place] gram powder 00 (two) Medical times Branch daily as needed for Constipati on. polyethylen 2021-10 Yes [id number] 1{packe Take 1 [facility] glycol 0-14 t} Packet by [facility]y of 3350 17 00:00: mouth 2 [place] gram powder 00 (two) Medical times Branch daily as needed for Constipati on. polyethylen 2021-10 Yes [id number] 1{packe Take 1 [facility] glycol 0-14 t} Packet by ity of 3350 17 00:00: mouth 2 [place] gram powder 00 (two) Medical times Branch daily as needed for Constipati on. polyethylen 2021-10 Yes [id number] 1{packe Take 1 [facility] glycol 0-14 t} Packet by [facility]y of 3350 17 00:00: mouth 2 [place] gram powder 00 (two) Medical times Branch daily as needed for Constipati on. polyethylen 2021-10 Yes [id number] 1{packe Take 1 [facility] glycol 0-14 t} Packet by [facility]y of 3350 17 00:00: mouth 2 [place] gram powder 00 (two) Medical times Branch daily as needed for Constipati on. polyethylen 2021-10 Yes [id number] 1{packe Take 1 [facility] glycol 0-14 t} Packet by [facility]y of 3350 17 00:00: mouth 2 [place] gram powder 00 (two) Medical times Branch daily as needed for Constipati on. polyethylen 2021-10 Yes [id number] 1{packe Take 1 [facility] glycol 0-14 t} Packet by [facility]y of 3350 17 00:00: mouth 2 [place] gram powder 00 (two) Medical times Branch daily as needed for Constipati on. polyethylen 2021-10 Yes [id number] 1{packe Take 1 [facility] glycol 0-14 t} Packet by [facility]y of 3350 17 00:00: mouth 2 [place] gram powder 00 (two) Medical times Branch daily as needed for Constipati on. polyethylen 2021-10 Yes [id number] 1{packe Take 1 [facility] glycol 0-14 t} Packet by [facility]y of 3350 17 00:00: mouth 2 [place] gram powder 00 (two) Medical times Branch daily as needed for Constipati on. polyethylen 2021-10 Yes [id number] 1{packe Take 1 [facility] glycol 0-14 t} Packet by ity of 3350 17 00:00: mouth 2 [place] gram powder 00 (two) Medical times Branch daily as needed for Constipati on. polyethylen 2021-10 Yes [id number] 1{packe Take 1 [facility] glycol 0-14 t} Packet by [facility]y of 3350 17 00:00: mouth 2 [place] gram powder 00 (two) Medical times Branch daily as needed for Constipati on. polyethylen 2021-10 Yes [id number] 1{packe Take 1 [facility] glycol 0-14 t} Packet by [facility]y of 3350 17 00:00: mouth 2 [place] gram powder 00 (two) Medical times Branch daily as needed for Constipati on. polyethylen 2021-10 Yes [id number] 1{packe Take 1 [facility] glycol 0-14 t} Packet by [facility]y of 3350 17 00:00: mouth 2 [place] gram powder 00 (two) Medical times Branch daily as needed for Constipati on. pantoprazol 2021-10- No [id number] 40mg Take 1 [facility] e 40 mg EC 0-14 02-17 tablet by it[facility] of tablet 00:00: 00:00 mouth [place] 00 :00 every Medical morning Branch and evening. docusate 2021-10- No [id number] 100mg Take 1 [facility] (COLACE) 0-14 02-17 capsule by ity of 100 mg 00:00: 00:00 mouth in [place] capsule 00 :00 the Medical morning. Branch pantoprazol 2021-10- No [id number] 40mg Take 1 [facility] e 40 mg EC 0-14 02-17 tablet by ity of tablet 00:00: 00:00 mouth [place] 00 :00 every Medical morning Branch and evening. docusate 2021-103- No [id number] 100mg Take 1 [facility] (COLACE) 0-14 02-17 capsule by ity of 100 mg 00:00: 00:00 mouth in [place] capsule 00 :00 the Medical morning. Branch ERGOCALCIFE 2021-10 Yes [id number] TAKE 1 [facility] ROL, 0-09 CAPSULE BY ity of VITAMIN D2, 00:00: MOUTH [place] 1,250 mcg 00 WEEKLY Medical (50,000 Branch unit) capsule naproxen 2021-10 Yes [id number] TAKE 1 [facility] 500 mg 0-09 [id number] TABLET BY ity of tablet 00:00: MOUTH [place] 00 TWICE Medical DAILY Branch NEEDED FOR MODERATE PAIN. Use sparingly due to side effects ERGOCALCIFE 2021-10 Yes [id number] TAKE 1 [facility] ROL, 0-09 CAPSULE BY ity of VITAMIN D2, 00:00: MOUTH [place] 1,250 mcg 00 WEEKLY Medical (50,000 Branch unit) capsule naproxen 2021-10 Yes [id number] TAKE 1 [facility] 500 mg 0-09 [id number] TABLET BY ity of tablet 00:00: MOUTH [place] 00 TWICE Medical DAILY Branch NEEDED FOR MODERATE PAIN. Use sparingly due to side effects ERGOCALCIFE 2021-10 Yes [id number] TAKE 1 [facility] ROL, 0-09 CAPSULE BY ity of VITAMIN D2, 00:00: MOUTH [place] 1,250 mcg 00 WEEKLY Medical (50,000 Branch unit) capsule naproxen 2021-10 Yes [id number] TAKE 1 [facility] 500 mg 0-09 [id number] TABLET BY ity of tablet 00:00: MOUTH [place] 00 TWICE Medical DAILY Branch NEEDED FOR MODERATE PAIN. Use sparingly due to side effects ERGOCALCIFE 2021-10 Yes [id number] TAKE 1 [facility] ROL, 0-09 CAPSULE BY ity of VITAMIN D2, 00:00: MOUTH [place] 1,250 mcg 00 WEEKLY Medical (50,000 Branch unit) capsule naproxen 2021-10 Yes [id number] TAKE 1 [facility] 500 mg 0-09 [id number] TABLET BY ity of tablet 00:00: MOUTH [place] 00 TWICE Medical DAILY Branch NEEDED FOR MODERATE PAIN. Use sparingly due to side effects ERGOCALCIFE 2021-10 Yes [id number] TAKE 1 [facility] ROL, 0-09 CAPSULE BY ity of VITAMIN D2, 00:00: MOUTH [place] 1,250 mcg 00 WEEKLY Medical (50,000 Branch unit) capsule naproxen 2021-10 Yes [id number] TAKE 1 [facility] 500 mg 0- 06331 TABLET BY ity of tablet 00:00: MOUTH [place] 00 TWICE Medical DAILY Branch NEEDED FOR MODERATE PAIN. Use sparingly due to side effects ERGOCALCIFE 2021-10 Yes [id number] TAKE 1 [facility] ROL, 0-09 CAPSULE BY ity of VITAMIN D2, 00:00: MOUTH [place] 1,250 mcg 00 WEEKLY Medical (50,000 Branch unit) capsule naproxen 2021-10 Yes [id number] TAKE 1 [facility] 500 mg 0-09 [id number] TABLET BY ity of tablet 00:00: MOUTH [place] 00 TWICE Medical DAILY Branch NEEDED FOR MODERATE PAIN. Use sparingly due to side effects ERGOCALCIFE 2021-10 Yes [id number] TAKE 1 [facility] ROL, 0-09 CAPSULE BY ity of VITAMIN D2, 00:00: MOUTH [place] 1,250 mcg 00 WEEKLY Medical (50,000 Branch unit) capsule ERGOCALCIFE 2021-10 Yes [id number] TAKE 1 [facility] ROL, 0-09 CAPSULE BY ity of VITAMIN D2, 00:00: MOUTH [place] 1,250 mcg 00 WEEKLY Medical (50,000 Branch unit) capsule ERGOCALCIFE 2021-10 Yes [id number] TAKE 1 [facility] ROL, 0-09 CAPSULE BY ity of VITAMIN D2, 00:00: MOUTH [place] 1,250 mcg 00 WEEKLY Medical (50,000 Branch unit) capsule ERGOCALCIFE 2021-10- No [id number] TAKE 1 [facility] ROL, 0-09 12-28 CAPSULE BY ity of VITAMIN D2, 00:00: 00:00 MOUTH [place] 1,250 mcg 00 :00 WEEKLY Medical (50,000 Branch unit) capsule naproxen 2021-10- No [id number] TAKE 1 [facility] 500 mg 0-06 24- 27629 TABLET BY ity of tablet 00:00: 00:00 MOUTH [place] 00 :00 TWICE Medical DAILY Branch NEEDED FOR MODERATE PAIN. Use sparingly due to side effects SUCRALFATE Yes [id number] 1g TAKE 1 [facility] 1 gram 9-16 TABLET BY ity of tablet 00:00: MOUTH 00 BEFORE Medical MEALS AND Branch AT BEDTIME SUCRALFATE 2021-0 Yes [id number] 1g TAKE 1 [facility] 1 gram 9-16 TABLET BY ity of tablet 00:00: MOUTH 00 BEFORE Medical MEALS AND Branch AT BEDTIME SUCRALFATE 2021-0 Yes [id number] 1g TAKE 1 [facility] 1 gram 9-16 TABLET BY ity of tablet 00:00: MOUTH 00 BEFORE Medical MEALS AND Branch AT BEDTIME SUCRALFATE 2021-0 Yes [id number] 1g TAKE 1 [facility] 1 gram 9-16 TABLET BY ity of tablet 00:00: MOUTH 00 BEFORE Medical MEALS AND Branch AT BEDTIME SUCRALFATE 2021-0 Yes [id number] 1g TAKE 1 [facility] 1 gram 9-16 TABLET BY ity of tablet 00:00: MOUTH 00 BEFORE Medical MEALS AND Branch AT BEDTIME SUCRALFATE 2021-0 Yes [id number] 1g TAKE 1 [facility] 1 gram 9-16 TABLET BY ity of tablet 00:00: MOUTH 00 BEFORE Medical MEALS AND Branch AT BEDTIME SUCRALFATE 2021-0 Yes [id number] 1g TAKE 1 [facility] 1 gram 9-16 TABLET BY ity of tablet 00:00: MOUTH 00 BEFORE Medical MEALS AND Branch AT BEDTIME SUCRALFATE 2021-0 Yes [id number] 1g TAKE 1 [facility] 1 gram 9-16 TABLET BY ity of tablet 00:00: MOUTH 00 BEFORE Medical MEALS AND Branch AT BEDTIME SUCRALFATE 2021-0 Yes [id number] 1g TAKE 1 [facility] 1 gram 9-16 TABLET BY ity of tablet 00:00: MOUTH 00 BEFORE Medical MEALS AND Branch AT BEDTIME SUCRALFATE 2021-0 Yes [id number] 1g TAKE 1 [facility] 1 gram 9-16 TABLET BY ity of tablet 00:00: MOUTH 00 BEFORE Medical MEALS AND Branch AT BEDTIME SUCRALFATE 2021-0 Yes [id number] 1g TAKE 1 [facility] 1 gram 9-16 TABLET BY ity of tablet 00:00: MOUTH 00 BEFORE Medical MEALS AND Branch AT BEDTIME SUCRALFATE 2021-0 Yes [id number] 1g TAKE 1 [facility] 1 gram 9-16 TABLET BY ity of tablet 00:00: MOUTH 00 BEFORE Medical MEALS AND Branch AT BEDTIME SUCRALFATE 2021-0 2023- No [id number] 1g TAKE 1 [facility] 1 gram -16 -17 TABLET BY ity of tablet 00:00: 00:00 MOUTH [place] 00 :00 BEFORE Medical MEALS AND Branch AT BEDTIME SUCRALFATE 2021-0 2022- No [id number] 1g TAKE 1 [facility] 1 gram 9-16 -17 TABLET BY ity of tablet 00:00: 00:00 MOUTH [place] 00 :00 BEFORE Medical MEALS AND Branch AT BEDTIME naproxen 2021-0 Yes [id number] TAKE 1 [facility] 500 mg 8-24 [id number] TABLET BY ity of tablet 00:00: MOUTH [place] 00 TWICE Medical DAILY Branch NEEDED FOR MODERATE PAIN. Use sparingly due to side effects naproxen 2021-0 Yes [id number] TAKE 1 [facility] 500 mg 8-24 [id number] TABLET BY ity of tablet 00:00: MOUTH [place] 00 TWICE Medical DAILY Branch NEEDED FOR MODERATE PAIN. Use sparingly due to side effects naproxen 2021-0 2021- No [id number] TAKE 1 [facility] 500 mg 8-24 07-22 [id number] TABLET BY ity of tablet 00:00: 00:00 MOUTH [place] 00 :00 TWICE Medical DAILY Branch NEEDED FOR MODERATE PAIN. Use sparingly due to side effects ergocalcife 2021-0 Yes [id number] Take 1 [facility] rol, 8-19 capsule by ity of vitamin d2, 00:00: mouth [place] (VITAMIN 00 weekly. Medical D2) 1,250 Branch mcg (50,000 unit) capsule sucralfate 2021-0 Yes [id number] 1g Take 1 [facility] 1 gram 8-19 tablet by ity of tablet 00:00: mouth [place] 00 before Medical meals and Branch at bedtime. ferrous 2021-0 Yes [id number] 324mg Take 1 [facility] vers sulfate 324 8-19 tablet by ity of mg (65 mg 00:00: mouth [place] iron) EC 00 daily with Medic al tablet breakfast. Branch ergocalcife 2021-0 Yes [id number] Take 1 [facility] rol, 8-19 capsule by ity of vitamin d2, 00:00: mouth [place] (VITAMIN 00 weekly. Medical D2) 1,250 Branch mcg (50,000 unit) capsule sucralfate 2021-0 Yes [id number] 1g Take 1 [facility] 1 gram 8-19 tablet by ity of tablet 00:00: mouth [place] 00 before Medical meals and Branch at bedtime. ferrous 0 Yes [id number] 324mg Take 1 [facility] vers sulfate 324 8-19 tablet by ity of mg (65 mg 00:00: mouth [place] iron) EC 00 daily with Medic al tablet breakfast. Branch ergocalcife 0 Yes [id number] Take 1 [facility] rol, 8-19 capsule by ity of vitamin d2, 00:00: mouth [place] (VITAMIN 00 weekly. Medical D2) 1,250 Branch mcg (50,000 unit) capsule ferrous 0 Yes [id number] 324mg Take 1 [facility] vers sulfate 324 8-19 tablet by ity of mg (65 mg 00:00: mouth [place] iron) EC 00 daily with Medic al tablet breakfast. Branch ferrous 0 Yes [id number] 324mg Take 1 [facility] vers sulfate 324 8-19 tablet by ity of mg (65 mg 00:00: mouth [place] iron) EC 00 daily with Medic al tablet breakfast. Branch ferrous 0 Yes [id number] 324mg Take 1 [facility] vers sulfate 324 8-19 tablet by ity of mg (65 mg 00:00: mouth [place] iron) EC 00 daily with Medic al tablet breakfast. Branch ferrous 0 Yes [id number] 324mg Take 1 [facility] vers sulfate 324 8-19 tablet by ity of mg (65 mg 00:00: mouth [place] iron) EC 00 daily with Medic al tablet breakfast. Branch ferrous 0 Yes [id number] 324mg Take 1 [facility] vers sulfate 324 8-19 tablet by ity of mg (65 mg 00:00: mouth [place] iron) EC 00 daily with Medic al tablet breakfast. Branch ferrous 2021-0 Yes [id number] 324mg Take 1 [facility] vers sulfate 324 8-19 tablet by ity of mg (65 mg 00:00: mouth [place] iron) EC 00 daily with Medic al tablet breakfast. Branch ferrous 2021-0 Yes [id number] 324mg Take 1 [facility] vers sulfate 324 8-19 tablet by ity of mg (65 mg 00:00: mouth [place] iron) EC 00 daily with Medic al tablet breakfast. Branch ferrous 2021-0 Yes [id number] 324mg Take 1 [facility] vers sulfate 324 8-19 tablet by ity of mg (65 mg 00:00: mouth [place] iron) EC 00 daily with Medic al tablet breakfast. Branch ferrous 2021-0 Yes [id number] 324mg Take 1 [facility] vers sulfate 324 8-19 tablet by ity of mg (65 mg 00:00: mouth [place] iron) EC 00 daily with Medic al tablet breakfast. Branch ferrous 2021-0 Yes [id number] 324mg Take 1 [facility] vers sulfate 324 8-19 tablet by ity of mg (65 mg 00:00: mouth [place] iron) EC 00 daily with Medic al tablet breakfast. Branch ferrous 2021-0 Yes [id number] 324mg Take 1 [facility] vers sulfate 324 8-19 tablet by ity of mg (65 mg 00:00: mouth [place] iron) EC 00 daily with Medic al tablet breakfast. Branch ferrous 2021-0 Yes [id number] 324mg Take 1 [facility] vers sulfate 324 8-19 tablet by ity of mg (65 mg 00:00: mouth [place] iron) EC 00 daily with Medic al tablet breakfast. Branch ferrous 2021-0 Yes [id number] 324mg Take 1 [facility] vers sulfate 324 8-19 tablet by ity of mg (65 mg 00:00: mouth [place] iron) EC 00 daily with Medic al tablet breakfast. Branch ferrous 2021-0 Yes [id number] 324mg Take 1 [facility] vers sulfate 324 8-19 tablet by ity of mg (65 mg 00:00: mouth [place] iron) EC 00 daily with Medic al tablet breakfast. Branch ferrous 2021-0 Yes [id number] 324mg Take 1 [facility] vers sulfate 324 8-19 tablet by ity of mg (65 mg 00:00: mouth [place] iron) EC 00 daily with Medic al tablet breakfast. Branch ferrous 2021-0 Yes [id number] 324mg Take 1 [facility] vers sulfate 324 8-19 tablet by ity of mg (65 mg 00:00: mouth [place] iron) EC 00 daily with Medic al tablet breakfast. Branch ferrous 2021-0 Yes [id number] 324mg Take 1 [facility] vers sulfate 324 8-19 tablet by ity of mg (65 mg 00:00: mouth [place] iron) EC 00 daily with Medic al tablet breakfast. Branch ferrous 2021-0 Yes [id number] 324mg Take 1 [facility] vers sulfate 324 8-19 tablet by ity of mg (65 mg 00:00: mouth [place] iron) EC 00 daily with Medic al tablet breakfast. Branch ferrous 2021-0 Yes [id number] 324mg Take 1 [facility] vers sulfate 324 8-19 tablet by ity of mg (65 mg 00:00: mouth [place] iron) EC 00 daily with Medic al tablet breakfast. Branch ferrous 2021-0 Yes [id number] 324mg Take 1 [facility] vers sulfate 324 8-19 tablet by ity of mg (65 mg 00:00: mouth [place] iron) EC 00 daily with Medic al tablet breakfast. Branch ferrous 2021-0 Yes [id number] 324mg Take 1 [facility] vers sulfate 324 8-19 tablet by ity of mg (65 mg 00:00: mouth [place] iron) EC 00 daily with Medic al tablet breakfast. Branch ferrous 2021-0 Yes [id number] 324mg Take 1 [facility] vers sulfate 324 8-19 tablet by ity of mg (65 mg 00:00: mouth [place] iron) EC 00 daily with Medic al tablet breakfast. Branch ferrous 2021-0 Yes [id number] 324mg Take 1 [facility] vers sulfate 324 8-19 tablet by ity of mg (65 mg 00:00: mouth [place] iron) EC 00 daily with Medic al tablet breakfast. Branch ferrous 2021-0 Yes [id number] 324mg Take 1 [facility] vers sulfate 324 8-19 tablet by ity of mg (65 mg 00:00: mouth [place] iron) EC 00 daily with Medic al tablet breakfast. Branch ferrous 2021-0 Yes [id number] 324mg Take 1 [facility] vers sulfate 324 8-19 tablet by ity of mg (65 mg 00:00: mouth [place] iron) EC 00 daily with Medic al tablet breakfast. Branch ferrous 2021-0 Yes [id number] 324mg Take 1 [facility] vers sulfate 324 8-19 tablet by ity of mg (65 mg 00:00: mouth [place] iron) EC 00 daily with Medic al tablet breakfast. Branch ferrous 2021-0 Yes [id number] 324mg Take 1 [facility] vers sulfate 324 8-19 tablet by ity of mg (65 mg 00:00: mouth [place] iron) EC 00 daily with Medic al tablet breakfast. Branch ferrous 2021-0 Yes [id number] 324mg Take 1 [facility] vers sulfate 324 8-19 tablet by ity of mg (65 mg 00:00: mouth [place] iron) EC 00 daily with Medic al tablet breakfast. Branch ferrous 2021-0 Yes [id number] 324mg Take 1 [facility] vers sulfate 324 8-19 tablet by ity of mg (65 mg 00:00: mouth [place] iron) EC 00 daily with Medic al tablet breakfast. Branch ferrous 2021-0 Yes [id number] 324mg Take 1 [facility] vers sulfate 324 8-19 tablet by ity of mg (65 mg 00:00: mouth [place] iron) EC 00 daily with Medic al tablet breakfast. Branch ferrous 2021-0 Yes [id number] 324mg Take 1 [facility] vers sulfate 324 8-19 tablet by ity of mg (65 mg 00:00: mouth [place] iron) EC 00 daily with Medic al tablet breakfast. Branch ferrous 0 Yes [id number] 324mg Take 1 [facility] vers sulfate 324 8-19 tablet by ity of mg (65 mg 00:00: mouth [place] iron) EC 00 daily with Medic al tablet breakfast. Branch ferrous 0 Yes [id number] 324mg Take 1 [facility] vers sulfate 324 8-19 tablet by ity of mg (65 mg 00:00: mouth [place] iron) EC 00 daily with Medic al tablet breakfast. Branch ferrous 0 Yes [id number] 324mg Take 1 [facility] vers sulfate 324 8-19 tablet by ity of mg (65 mg 00:00: mouth [place] iron) EC 00 daily with Medic al tablet breakfast. Branch ferrous 0 Yes [id number] 324mg Take 1 [facility] vers sulfate 324 8-19 tablet by ity of mg (65 mg 00:00: mouth [place] iron) EC 00 daily with Medic al tablet breakfast. Branch ferrous 2021-0 Yes [id number] 324mg Take 1 [facility] vers sulfate 324 8-19 tablet by ity of mg (65 mg 00:00: mouth [place] iron) EC 00 daily with Medic al tablet breakfast. Branch ferrous 0 Yes [id number] 324mg Take 1 [facility] vers sulfate 324 8-19 tablet by ity of mg (65 mg 00:00: mouth [place] iron) EC 00 daily with Medic al tablet breakfast. Branch ferrous 0 Yes [id number] 324mg Take 1 [facility] vers sulfate 324 8-19 tablet by ity of mg (65 mg 00:00: mouth [place] iron) EC 00 daily with Medic al tablet breakfast. Branch ergocalcife 2021- No [id number] Take 1 [facility] rol, 8-19 10-09 capsule by ity of vitamin d2, 00:00: 00:00 mouth [place] (VITAMIN 00 :00 weekly. Medical D2) 1,250 Branch mcg (50,000 unit) capsule sucralfate 2021- No [id number] 1g Take 1 [facility] 1 gram 8-19 09-16 tablet by ity of tablet 00:00: 00:00 mouth [place] 00 :00 before Medical meals and Branch at bedtime. PANTOPRAZOL Yes [id number] TAKE 1 [facility] E 40 mg EC 8-18 TABLET BY ity of tablet 00:00: MOUTH IN [place] 00 THE Medical MORNING Branch AND IN THE EVENING PANTOPRAZOL Yes [id number] TAKE 1 [facility] E 40 mg EC 8-18 TABLET BY ity of tablet 00:00: MOUTH IN [place] 00 THE Medical MORNING Branch AND IN THE EVENING PANTOPRAZOL Yes [id number] TAKE 1 [facility] E 40 mg EC 8-18 TABLET BY ity of tablet 00:00: MOUTH IN [place] 00 THE Medical MORNING Branch AND IN THE EVENING PANTOPRAZOL Yes [id number] TAKE 1 [facility] E 40 mg EC 8-18 TABLET BY ity of tablet 00:00: MOUTH IN [place] 00 THE Medical MORNING Branch AND IN THE EVENING PANTOPRAZOL 2021- No [id number] TAKE 1 [facility] E 40 mg EC 8-18 10-14 TABLET BY ity of tablet 00:00: 00:00 MOUTH IN [place] 00 :00 THE Medical MORNING Branch AND IN THE EVENING PANTOPRAZOL 2021- No [id number] TAKE 1 [facility] E 40 mg EC 8-18 10-14 TABLET BY ity of tablet 00:00: 00:00 MOUTH IN [place] 00 :00 THE Medical MORNING Branch AND IN THE EVENING naproxen Yes [id number] TAKE 1 [facility] 500 mg 7-25 [id number] TABLET BY ity of tablet 00:00: MOUTH [place] 00 TWICE Medical DAILY Branch NEEDED FOR MODERATE PAIN. Use sparingly due to side effects naproxen 2021- No [id number] TAKE 1 [facility] 500 mg 7-25 08-24 [id number] TABLET BY ity of tablet 00:00: 00:00 MOUTH [place] 00 :00 TWICE Medical DAILY Branch NEEDED FOR MODERATE PAIN. Use sparingly due to side effects aspirin/steve Yes Take by [facility] vers icylamide/c 05-05 mouth 2 ity o f affeine (BC 13:34: (two) [place] HEADACHE 41 times Medical POWDER daily. Branch ORAL) aspirin/steve 2022-0 Yes Take by [facility] vers icylamide/c 7-23 mouth 2 ity o f affeine (BC 13:34: (two) [place] HEADACHE 41 times Medical POWDER daily. Branch ORAL) aspirin/steve 2022-0 Yes Take by [facility] vers icylamide/c 7-23 mouth 2 ity o f affeine (BC 13:34: (two) [place] HEADACHE 41 times Medical POWDER daily. Branch ORAL) aspirin/steve 2022-0 Yes Take by [facility] vers icylamide/c 7-23 mouth 2 ity o f affeine (BC 13:34: (two) [place] HEADACHE 41 times Medical POWDER daily. Branch ORAL) aspirin/steve 2022-0 Yes Take by [facility] vers icylamide/c 7-23 mouth 2 ity o f affeine (BC 13:34: (two) [place] HEADACHE 41 times Medical POWDER daily. Branch ORAL) aspirin/steve 2022-0 Yes Take by [facility] vers icylamide/c 7-23 mouth 2 ity o f affeine (BC 13:34: (two) [place] HEADACHE 41 times Medical POWDER daily. Branch ORAL) aspirin/steve 2022-0 Yes Take by [facility] vers icylamide/c 7-23 mouth 2 ity o f affeine (BC 13:34: (two) [place] HEADACHE 41 times Medical POWDER daily. Branch ORAL) aspirin/steve 2022-0 Yes Take by [facility] vers icylamide/c 7-23 mouth 2 ity o f affeine (BC 13:34: (two) [place] HEADACHE 41 times Medical POWDER daily. Branch ORAL) aspirin/steve 2022-0 Yes Take by [facility] vers icylamide/c 7-23 mouth 2 ity o f affeine (BC 13:34: (two) [place] HEADACHE 41 times Medical POWDER daily. Branch ORAL) aspirin/steve 2022-0 Yes Take by [facility] vers icylamide/c 7-23 mouth 2 ity o f affeine (BC 13:34: (two) [place] HEADACHE 41 times Medical POWDER daily. Branch ORAL) aspirin/steve 2022-0 Yes Take by [facility] vers icylamide/c 7-23 mouth 2 ity o f affeine (BC 13:34: (two) [place] HEADACHE 41 times Medical POWDER daily. Branch ORAL) aspirin/steve 2022-0 Yes Take by [facility] vers icylamide/c 7-23 mouth 2 ity o f affeine (BC 13:34: (two) [place] HEADACHE 41 times Medical POWDER daily. Branch ORAL) aspirin/steve 2021-0 Yes Take by [facility] vers icylamide/c 7-23 mouth 2 ity o f affeine (BC 13:34: (two) [place] HEADACHE 41 times Medical POWDER daily. Branch ORAL) aspirin/steve 0 Yes Take by [facility] vers icylamide/c 7-23 mouth 2 ity o f affeine (BC 13:34: (two) [place] HEADACHE 41 times Medical POWDER daily. Branch ORAL) aspirin/steve 2021-0 Yes Take by [facility] vers icylamide/c 7-23 mouth 2 ity o f affeine (BC 13:34: (two) [place] HEADACHE 41 times Medical POWDER daily. Branch ORAL) aspirin/steve 0 Yes Take by [facility] vers icylamide/c 7-23 mouth 2 ity o f affeine (BC 13:34: (two) [place] HEADACHE 41 times Medical POWDER daily. Branch ORAL) aspirin/steve 0 Yes Take by [facility] vers icylamide/c 7-23 mouth 2 ity o f affeine (BC 13:34: (two) [place] HEADACHE 41 times Medical POWDER daily. Branch ORAL) Immunizations Ordered Filled Immunization Date Status Comments [facility] e Immunization Name Name Remdesivir 2022-05-04 Completed [facility] of 00:00:00 [facility] Remdesivir 2022-05-04 Completed [facility] of 00:00:00 [place] [facility] Remdesivir 2022-05-04 Completed [facility] of 00:00:00 [place] [facility] Remdesivir 2022-05-04 Completed [facility] 00:00:00 [place] [facility] Remdesivir 2022-05-04 Completed [facility] 00:00:00 [place] [facility] Remdesivir 2022-05-04 Completed [facility] 00:00:00 [place] [facility] Remdesivir 2022-05-04 Completed [facility] 00:00:00 [place] [facility] Remdesivir 2022-05-04 Completed [facility] 00:00:00 [place] [facility] Remdesivir 2022-05-04 Completed [facility] 00:00:00 [place] [facility] Remdesivir 2022-05-04 Completed [facility] of 00:00:00 [facility] Remdesivir 2022-05-04 Completed [facility] 00:00:00 [facility] Remdesivir 2022-05-04 Completed [facility] 00:00:00 [facility] Remdesivir 2022-05-04 Completed [facility] 00:00:00 [facility] Remdesivir 2022-05-04 Completed [facility] 00:00:00 [facility] Remdesivir 2022-05-04 Completed [facility] 00:00:00 [facility] Remdesivir 2022-05-04 Completed [facility] 00:00:00 [facility] Remdesivir 2022-05-04 Completed [facility] 00:00:00 [facility] Remdesivir 2022-05-04 Completed [facility] 00:00:00 [facility] Remdesivir 2022-05-04 Completed [facility] 00:00:00 [facility] Remdesivir 2022-05-04 Completed [facility] 00:00:00 [facility] Remdesivir 2022-05-04 Completed [facility] 00:00:00 [facility] Remdesivir 2022-05-04 Completed [facility] 00:00:00 [facility] Remdesivir 2022-05-04 Completed [facility] 00:00:00 [facility] Remdesivir 2022-05-04 Completed [facility] 00:00:00 [facility] Remdesivir 2022-05-04 Completed [facility] 00:00:00 [facility] Remdesivir 2022-05-04 Completed [facility] 00:00:00 [facility] Remdesivir 2022-05-04 Completed [facility] 00:00:00 [facility] Remdesivir 2022-05-04 Completed [facility] 00:00:00 [facility] Remdesivir 2022-05-04 Completed [facility] 00:00:00 [facility] Remdesivir 2022-05-04 Completed [facility] 00:00:00 [facility] Remdesivir 2022-05-04 Completed [facility] 00:00:00 [facility] Remdesivir 2022-05-04 Completed [facility] 00:00:00 [facility] Remdesivir 2022-05-04 Completed [facility] 00:00:00 [facility] Remdesivir 2022-05-04 Completed [facility] 00:00:00 [facility] Remdesivir 2022-05-04 Completed [facility] 00:00:00 [facility] Remdesivir 2022-05-04 Completed [facility] 00:00:00 [facility] Remdesivir 2022-05-04 Completed [facility] 00:00:00 [facility] Remdesivir 2022-05-04 Completed [facility] 00:00:00 [facility] Remdesivir 2022-05-04 Completed [facility] 00:00:00 [facility] Remdesivir 2022-05-04 Completed [facility] 00:00:00 [facility] Remdesivir 2022-05-03 Completed [facility] 00:00:00 [facility] Remdesivir 2022-05-03 Completed [facility] 00:00:00 [facility] Remdesivir 2022-05-03 Completed [facility] 00:00:00 [facility] Remdesivir 2022-05-03 Completed [facility] 00:00:00 [facility] Remdesivir 2022-05-03 Completed [facility] 00:00:00 [facility] Remdesivir 2022-05-03 Completed [facility] 00:00:00 [facility] Remdesivir 2022-05-03 Completed [facility] 00:00:00 [facility] Remdesivir 2022-05-03 Completed [facility] 00:00:00 [facility] Remdesivir 2022-05-03 Completed [facility] 00:00:00 [facility] Remdesivir 2022-05-03 Completed [facility] 00:00:00 [facility] Remdesivir 2022-05-03 Completed [facility] 00:00:00 [facility] Remdesivir 2022-05-03 Completed [facility] 00:00:00 [facility] Remdesivir 2022-05-03 Completed [facility] 00:00:00 [facility] Remdesivir 2022-05-03 Completed [facility] 00:00:00 [facility] Remdesivir 2022-05-03 Completed [facility] 00:00:00 [facility] Remdesivir 2022-05-03 Completed [facility] 00:00:00 [facility] Remdesivir 2022-05-03 Completed [facility] 00:00:00 [facility] Remdesivir 2022-05-03 Completed [facility] 00:00:00 [facility] Remdesivir 2022-05-03 Completed [facility] 00:00:00 [facility] Remdesivir 2022-05-03 Completed [facility] 00:00:00 [facility] Remdesivir 2022-05-03 Completed [facility] 00:00:00 [facility] Remdesivir 2022-05-03 Completed [facility] 00:00:00 [facility] Remdesivir 2022-05-03 Completed [facility] 00:00:00 [facility] Remdesivir 2022-05-03 Completed [facility] 00:00:00 [facility] Remdesivir 2022-05-03 Completed [facility] 00:00:00 [facility] Remdesivir 2022-05-03 Completed [facility] 00:00:00 [facility] Remdesivir 2022-05-03 Completed [facility] 00:00:00 [facility] Remdesivir 2022-05-03 Completed [facility] 00:00:00 [facility] Remdesivir 2022-05-03 Completed [facility] 00:00:00 [facility] Remdesivir 2022-05-03 Completed [facility] 00:00:00 [facility] Remdesivir 2022-05-03 Completed [facility] 00:00:00 [facility] Remdesivir 2022-05-03 Completed [facility] 00:00:00 [facility] Remdesivir 2022-05-03 Completed [facility] 00:00:00 [facility] Remdesivir 2022-05-03 Completed [facility] 00:00:00 [facility] Remdesivir 2022-05-03 Completed [facility] 00:00:00 [facility] Remdesivir 2022-05-03 Completed [facility] 00:00:00 [facility] Remdesivir 2022-05-03 Completed [facility] 00:00:00 [facility] Remdesivir 2022-05-03 Completed [facility] 00:00:00 [facility] Remdesivir 2022-05-03 Completed [facility] 00:00:00 [facility] Remdesivir 2022-05-03 Completed [facility] 00:00:00 [facility] Remdesivir 2022-05-02 Completed [facility] 00:00:00 [facility] Remdesivir 2022-05-02 Completed [facility] 00:00:00 [facility] Remdesivir 2022-05-02 Completed [facility] 00:00:00 [facility] Remdesivir 2022-05-02 Completed [facility] 00:00:00 [facility] Remdesivir 2022-05-02 Completed [facility] 00:00:00 [facility] Remdesivir 2022-05-02 Completed [facility] 00:00:00 [facility] Remdesivir 2022-05-02 Completed [facility] 00:00:00 [facility] Remdesivir 2022-05-02 Completed [facility] 00:00:00 [facility] Remdesivir 2022-05-02 Completed [facility] 00:00:00 [facility] Remdesivir 2022-05-02 Completed [facility] 00:00:00 [facility] Remdesivir 2022-05-02 Completed [facility] 00:00:00 [facility] Remdesivir 2022-05-02 Completed [facility] 00:00:00 [facility] Remdesivir 2022-05-02 Completed [facility] 00:00:00 [facility] Remdesivir 2022-05-02 Completed [facility] 00:00:00 [facility] Remdesivir 2022-05-02 Completed [facility] 00:00:00 [facility] Remdesivir 2022-05-02 Completed [facility] 00:00:00 [facility] Remdesivir 2022-05-02 Completed [facility] 00:00:00 [facility] Remdesivir 2022-05-02 Completed [facility] 00:00:00 [facility] Remdesivir 2022-05-02 Completed [facility] 00:00:00 [facility] Remdesivir 2022-05-02 Completed [facility] 00:00:00 [facility] Remdesivir 2022-05-02 Completed [facility] 00:00:00 [facility] Remdesivir 2022-05-02 Completed [facility] 00:00:00 [facility] Remdesivir 2022-05-02 Completed [facility] 00:00:00 [facility] Remdesivir 2022-05-02 Completed [facility] 00:00:00 [facility] Remdesivir 2022-05-02 Completed [facility] 00:00:00 [facility] Remdesivir 2022-05-02 Completed [facility] 00:00:00 [facility] Remdesivir 2022-05-02 Completed [facility] 00:00:00 [facility] Remdesivir 2022-05-02 Completed [facility] 00:00:00 [facility] Remdesivir 2022-05-02 Completed [facility] 00:00:00 [facility] Remdesivir 2022-05-02 Completed [facility] 00:00:00 [facility] Remdesivir 2022-05-02 Completed [facility] 00:00:00 [facility] Remdesivir 2022-05-02 Completed [facility] 00:00:00 [facility] Remdesivir 2022-05-02 Completed [facility] 00:00:00 [facility] Remdesivir 2022-05-02 Completed [facility] 00:00:00 [facility] Remdesivir 2022-05-02 Completed [facility] 00:00:00 [facility] Remdesivir 2022-05-02 Completed [facility] 00:00:00 [facility] Remdesivir 2022-05-02 Completed [facility] 00:00:00 [facility] Remdesivir 2022-05-02 Completed [facility] 00:00:00 [facility] Remdesivir 2022-05-02 Completed [facility] 00:00:00 [facility] Remdesivir 2022-05-02 Completed [facility] 00:00:00 [facility] Remdesivir 2022-05-01 Completed [facility] 00:00:00 [facility] Remdesivir 2022-05-01 Completed [facility] 00:00:00 [facility] Remdesivir 2022-05-01 Completed [facility] 00:00:00 [facility] Remdesivir 2022-05-01 Completed [facility] 00:00:00 [facility] Remdesivir 2022-05-01 Completed [facility] 00:00:00 [facility] Remdesivir 2022-05-01 Completed [facility] 00:00:00 [facility] Remdesivir 2022-05-01 Completed [facility] 00:00:00 [facility] Remdesivir 2022-05-01 Completed [facility] 00:00:00 [facility] Remdesivir 2022-05-01 Completed [facility] 00:00:00 [facility] Remdesivir 2022-05-01 Completed [facility] 00:00:00 [facility] Remdesivir 2022-05-01 Completed [facility] 00:00:00 [facility] Remdesivir 2022-05-01 Completed [facility] 00:00:00 [facility] Remdesivir 2022-05-01 Completed [facility] 00:00:00 [facility] Remdesivir 2022-05-01 Completed [facility] 00:00:00 [facility] Remdesivir 2022-05-01 Completed [facility] 00:00:00 [facility] Remdesivir 2022-05-01 Completed [facility] 00:00:00 [facility] Remdesivir 2022-05-01 Completed [facility] 00:00:00 [facility] Remdesivir 2022-05-01 Completed [facility] 00:00:00 [facility] Remdesivir 2022-05-01 Completed [facility] 00:00:00 [facility] Remdesivir 2022-05-01 Completed [facility] 00:00:00 [facility] Remdesivir 2022-05-01 Completed [facility] 00:00:00 [facility] Remdesivir 2022-05-01 Completed [facility] 00:00:00 [facility] Remdesivir 2022-05-01 Completed [facility] 00:00:00 [facility] Remdesivir 2022-05-01 Completed [facility] 00:00:00 [facility] Remdesivir 2022-05-01 Completed [facility] 00:00:00 [facility] Remdesivir 2022-05-01 Completed [facility] 00:00:00 [facility] Remdesivir 2022-05-01 Completed [facility] 00:00:00 [facility] Remdesivir 2022-05-01 Completed [facility] 00:00:00 [facility] Remdesivir 2022-05-01 Completed [facility] 00:00:00 [facility] Remdesivir 2022-05-01 Completed [facility] 00:00:00 [facility] Remdesivir 2022-05-01 Completed [facility] 00:00:00 [facility] Remdesivir 2022-05-01 Completed [facility] 00:00:00 [facility] Remdesivir 2022-05-01 Completed [facility] 00:00:00 [facility] Remdesivir 2022-05-01 Completed [facility] 00:00:00 [facility] Remdesivir 2022-05-01 Completed [facility] 00:00:00 [facility] Remdesivir 2022-05-01 Completed [facility] 00:00:00 [facility] Remdesivir 2022-05-01 Completed [facility] 00:00:00 [facility] Remdesivir 2022-05-01 Completed [facility] 00:00:00 [facility] Remdesivir 2022-05-01 Completed [facility] 00:00:00 [facility] Remdesivir 2022-05-01 Completed [facility] 00:00:00 [facility] Remdesivir 2022-04-30 Completed [facility] 00:00:00 [facility] Remdesivir 2022-04-30 Completed [facility] 00:00:00 [facility] Remdesivir 2022-04-30 Completed [facility] 00:00:00 [facility] Remdesivir 2022-04-30 Completed [facility] 00:00:00 [facility] Remdesivir 2022-04-30 Completed [facility] 00:00:00 [facility] Remdesivir 2022-04-30 Completed [facility] 00:00:00 [facility] Remdesivir 2022-04-30 Completed [facility] 00:00:00 [facility] Remdesivir 2022-04-30 Completed [facility] 00:00:00 [facility] Remdesivir 2022-04-30 Completed [facility] 00:00:00 [facility] Remdesivir 2022-04-30 Completed [facility] 00:00:00 [facility] Remdesivir 2022-04-30 Completed [facility] 00:00:00 [facility] Remdesivir 2022-04-30 Completed [facility] 00:00:00 [facility] Remdesivir 2022-04-30 Completed [facility] 00:00:00 [facility] Remdesivir 2022-04-30 Completed [facility] 00:00:00 [facility] Remdesivir 2022-04-30 Completed [facility] 00:00:00 [facility] Remdesivir 2022-04-30 Completed [facility] 00:00:00 [facility] Remdesivir 2022-04-30 Completed [facility] 00:00:00 [facility] Remdesivir 2022-04-30 Completed [facility] 00:00:00 [facility] Remdesivir 2022-04-30 Completed [facility] 00:00:00 [facility] Remdesivir 2022-04-30 Completed [facility] 00:00:00 [facility] Remdesivir 2022-04-30 Completed [facility] 00:00:00 [facility] Remdesivir 2022-04-30 Completed [facility] 00:00:00 [facility] Remdesivir 2022-04-30 Completed [facility] 00:00:00 [facility] Remdesivir 2022-04-30 Completed [facility] 00:00:00 [facility] Remdesivir 2022-04-30 Completed [facility] 00:00:00 [facility] Remdesivir 2022-04-30 Completed [facility] 00:00:00 [facility] Remdesivir 2022-04-30 Completed [facility] 00:00:00 [facility] Remdesivir 2022-04-30 Completed [facility] 00:00:00 [facility] Remdesivir 2022-04-30 Completed [facility] 00:00:00 [facility] Remdesivir 2022-04-30 Completed [facility] 00:00:00 [facility] Remdesivir 2022-04-30 Completed [facility] 00:00:00 [facility] Remdesivir 2022-04-30 Completed [facility] 00:00:00 [facility] Remdesivir 2022-04-30 Completed [facility] 00:00:00 [facility] Remdesivir 2022-04-30 Completed [facility] 00:00:00 [facility] Remdesivir 2022-04-30 Completed [facility] 00:00:00 [facility] Remdesivir 2022-04-30 Completed [facility] 00:00:00 [facility] Remdesivir 2022-04-30 Completed [facility] 00:00:00 [facility] Remdesivir 2022-04-30 Completed [facility] 00:00:00 [facility] Remdesivir 2022-04-30 Completed [facility] 00:00:00 [facility] Remdesivir 2022-04-30 Completed [facility] of 00:00:00 [facility] Td 2016-02-26 Completed [facility] 00:00:00 [facility] Td 2016-02-26 Completed [facility] 00:00:00 [facility] Td 2016-02-26 Completed [facility] of 00:00:00 [facility] Td 2016-02-26 Completed [facility] of 00:00:00 [facility] Td 2016-02-26 Completed [facility] of 00:00:00 [facility] Td 2016-02-26 Completed [facility] 00:00:00 [facility] Td 2016-02-26 Completed [facility] 00:00:00 [facility] Td 2016-02-26 Completed [facility] of 00:00:00 [facility] Td 2016-02-26 Completed [facility] of 00:00:00 [facility] Td 2016-02-26 Completed [facility] of 00:00:00 [facility] Td 2016-02-26 Completed [facility] of 00:00:00 [facility] TD, NOS 2016-02-26 Completed [facility] 00:00:00 [...] [facility] TD, NOS 2016-02-26 Completed University 00:00:00 [facility] TD, NOS 2016-02-26 Completed University 00:00:00 [facility] Vital Signs Vital Name Observation Time Observation Value Comments Source Systolic blood 2023-01-02 16:25:00 123 mm[Hg] Univer sity of pressure [facility] Diastolic blood 2023-01-02 16:25:00 81 mm[Hg] Unive rsity of pressure [facility] Heart rate 2023-01-02 16:25:00 85 /min [facility] Body temperature 2023-01-02 16:25:00 37.17 [place] [facility] Respiratory rate 2023-01-02 16:25:00 18 /min [facility] Oxygen saturation in 2023-01-02 16:25:00 99 /min University of Arterial blood by [place] [employer] [facility] Body weight 2023-01-01 23:30:00 48.353 kg [facility] BMI 2023-01-01 23:30:00 18.30 kg/m2 [facility] Body height 2022-12-31 03:57:00 162.6 cm [facility] Systolic blood 2023-01-01 14:00:00 115 mm[Hg] [facility] pressure [facility] Diastolic blood 2023-01-01 14:00:00 75 mm[Hg] Unive rsity of pressure [facility] Heart rate 2023-01-01 14:00:00 72 /min [facility] Respiratory rate 2023-01-01 14:00:00 12 /min [facility] Oxygen saturation in 2023-01-01 14:00:00 95 /min [facility] of Arterial blood by [place] [employer] [facility] Body temperature 2023-01-01 13:54:00 36.39 [place] [facility] Body height 2022-12-31 03:57:00 162.6 cm [facility] Body weight 2022-12-31 03:57:00 49.5 kg [facility] BMI 2022-12-31 03:57:00 18.30 kg/m2 [facility] Systolic blood 2022-11-30 16:24:00 123 mm[Hg] Un[facility]ity of pressure [facility] Diastolic blood 2022-11-30 16:24:00 85 mm[Hg] Unive rsity of pressure [facility] Heart rate 2022-11-30 16:24:00 93 /min [facility] Body height 2022-11-30 16:24:00 162.6 cm [facility] Body weight 2022-11-30 16:24:00 46.72 kg [facility] BMI 2022-11-30 16:24:00 17.68 kg/m2 [facility] Oxygen saturation in 2022-11-30 16:24:00 100 /min University of Arterial blood by [facility] Branch Systolic blood 2022-07-27 18:27:00 116 mm[Hg] Univer sity of pressure [facility] Diastolic blood 2022-07-27 18:27:00 83 mm[Hg] Unive rsity of pressure [facility] Heart rate 2022-07-27 18:27:00 107 /min [facility] Body height 2022-07-27 18:27:00 162.6 cm [facility] Body weight 2022-07-27 18:27:00 47.854 kg [facility] BMI 2022-07-27 18:27:00 18.11 kg/m2 [facility] Oxygen saturation in 2022-07-27 18:27:00 97 /min [facility] of Arterial blood by [facility] Systolic blood 2022-06-01 16:42:00 114 mm[Hg] Un[facility] s[facility] of pressure [facility] Diastolic blood 2022-06-01 16:42:00 80 mm[Hg] Unive rsity of pressure [facility] Heart rate 2022-06-01 16:42:00 103 /min [facility] Body temperature 2022-06-01 16:42:00 36.61 [place] [facility] Body height 2022-06-01 16:42:00 162.6 cm [facility] Body weight 2022-06-01 16:42:[address] [facility] BMI 2022-06-01 16:42:00 19.31 kg/m2 [facility] Oxygen saturation in 2022-06-01 16:42:00 97 /min [facility] Arterial blood by [facility] Branch Procedures Procedure Date / Time Performing Source Performed Clinician EXTERNAL PROVIDER RECORDS 2023-01-09 Doctor Shandra gongora of 05:01:00 Unassigned, No [facility] Name Branch [facility]ORUS [facility]23[facility]01-02 [facility]00 [facility] MAG[facility]UM [facility]23[facility]01-02 [facility]00 [facility] HEPATIC FUNCTION PANEL ([id number]) 2023-01-02 Anthony Leiva niversity of (ALB,T.PRO,BILI 08:59:00 [facility],BU/BC,ALT,AST,ALK PHOS) [place] BASIC METABOLIC PANEL (NA, K, CL, 2023-01-02 Ida Browne [facility] of CO2, GLUCOSE, BUN, CREATININE, CA) 08:59:00 [facility] CBC WITH DIFF 2023-01-02 P[facility] 08:59:00 [facility] PROTHROMBIN TIME / INR 2023-01-02 Anthony Leiva [facility] y of 08:59:00 [facility] ACTIVATED PARTIAL THRMPLAS GARO 2023-01-02 Anthony Leiva niversity of 08:59:00 [facility] FIBRINOGEN 2023-01-02 Anthony Leiva [facility] 08:59:00 [facility] PHOSPHORUS 2023-01-02 [facility] 08:59:00 [facility] MAGNESIUM 2023-01-02 [facility] of 08:59:00 [facility] HEPATIC FUNCTION PANEL ([id number]) 2023-01-02 Anand Mcfadden niversity of (ALB,T.PRO,BILI 08:59:00 [facility] T,BU/BC,ALT,AST,ALK PHOS) [place] BASIC METABOLIC PANEL (NA, K, CL, 2023-01-02 Pavan [facility] of CO2, GLUCOSE, BUN, CREATININE, CA) 08:59:00 [facility] CBC WITH DIFF 2023-01-02 [place] 08:59:00 [facility] PROTHROMBIN TIME / INR 2023-01-02 Vic Mcfaddenit y of 08:59:00 [facility] ACTIVATED PARTIAL THRMPLAS GARO 2023-01-02 Anand Mcfadden niversity of 08:59:00 [facility] FIBRINOGEN 2023-01-02 Anthony Leiva [place] of 08:59:00 [facility] CBC WITH DIFF 2023-01-01 Anthony Leiva [place] of 16:25:00 [facility] CBC WITH DIFF 2023-01-01 Anthony Leiva [place] of 16:25:00 [facility] EGD (ENDO) 2023-01-01 Person, [facility] of 14:53:20 [facility] EGD (ENDO) 2023-01-01 Person, [facility] of 14:53:20 [facility] ESOPHAGOGASTRODUODENOSCOPY 2023-01-01 [facility] rsity of 14:36:00 [facility] ESOPHAGOGASTRODUODENOSCOPY 2023-01-01 [facility] rsity of 14:36:00 [facility] PREPARE PACKED RBC 2023-01-01 [facility] of 12:28:32 F [facility] PREPARE PACKED RBC 2023-01-01 [facility] of 12:28:32 F [facility] TRANSFUSE PACKED RBC 2023-01-01 Anthony Leiva [place] of 11:25:00 [facility] [facility] TRANSFUSE PACKED RBC 2023-01-01 Anthony Leiva [place] of 11:25:00 [facility] PREPARE PACKED RBC 2023-01-01 Anthony Leiva [place] of 11:08:21 [facility] PREPARE PACKED RBC 2023-01-01 Anthony Leiva [place] of 11:08:21 [facility] PHOSPHORUS 2023-01-01 Anthony Leiva [place] of 08:38:00 [facility] MAGNESIUM 2023-01-01 Anthony Leiva [facility] 08:38:00 [facility] HEPATIC FUNCTION PANEL (70404) 2023-01-01 nAand Mcfadden niversity of (ALB,T.PRO,BILI 08:38:00 [facility] T,BU/BC,ALT,AST,ALK PHOS) [place] BASIC METABOLIC PANEL (NA, K, CL, 2023-01-01 [facility] CO2, GLUCOSE, BUN, CREATININE, CA) 08:38:00 [facility] CBC WITH DIFF 2023-01-01 [facility] 08:38:00 [facility] PROTHROMBIN TIME / INR 2023-01-01 [facility] 08:38:00 [facility] ACTIVATED PARTIAL THRMPLAS GARO 2023-01-01 Anthony Leiva niversity of 08:38:00 [facility] FIBRINOGEN 2023-01-01 [facility] 08:38:00 [facility] PHOSPHORUS 2023-01-01 [facility] 08:38:00 [facility] MAGNESIUM 2023-01-01 Criseldatx [facility] 08:38:00 [facility] HEPATIC FUNCTION PANEL ([id number]) 2023-01-01 Anand Mcfadden niversity of (ALB,T.PRO,BILI 08:38:00 [facility] T,BU/BC,ALT,AST,ALK PHOS) [place] BASIC METABOLIC PANEL (NA, K, CL, 2023-01-01 Anthony Leiva [facility] CO2, GLUCOSE, BUN, CREATININE, CA) 08:38:00 [facility] CBC WITH DIFF 2023-01-01 [facility] 08:38:00 [facility] PROTHROMBIN TIME / INR 2023-01-01 [facility] of 08:38:00 [facility] ACTIVATED PARTIAL THRMPLAS GARO 2023-01-01 Anthony Leiva niversity of 08:38:00 [facility] FIBRINOGEN 2023-01-01 Salimi [facility] 08:38:00 [facility] TRANSFERRIN 2022-12-31 [facility] 20:26:00 [facility] CBC WITH DIFF 2022-12-31 [facility] of 20:26:00 [facility] TISSUE TRANSGLUTAMINASE (TTG) IGA 2022-12-31 [facility] 20:26:00 [facility] TRANSFERRIN 2022-12-31 [facility] 20:26:00 [facility] CBC WITH DIFF 2022-12-31 [facility] 20:26:00 [facility] TISSUE TRANSGLUTAMINASE (TTG) IGA 2022-12-31 [facility]eldatx [facility] 20:26:00 [facility] PHOSPHORUS 2022-12-31 [facility] of 11:02:00 [facility] MAGNESIUM 2022-12-31 [facility] of 11:02:00 [facility] FERRITIN SERUM 2022-12-31 [facility] 11:02: [facility] IRON 2022-12-31 [facility] 11:02[facility]00 [facility] BASIC METABOLIC PANEL (NA, K, CL, 2022-12-31 [facility] of CO2, GLUCOSE, BUN, CREATININE, CA) 11:02:00 [facility] CBC WITH DIFF 2022-12-31 [facility] of 11:02:00 [facility] PHOSPHORUS 2022-12-31 [facility] of 11:02:00 [facility] MAGNESIUM 2022-12-31 [facility] of 11:02:00 [facility] FERRITIN SERUM 2022-12-31 Criseldatx [facility] 11:02:00 [facility] IRON 2022-12-31 [facility]datx [facility] of 11:02:00 [facility] BASIC METABOLIC PANEL (NA, K, CL, 2022-12-31 [facility] of CO2, GLUCOSE, BUN, CREATININE, CA) 11:02:00 [facility] CBC WITH DIFF 2022-12-31 [facility] of 11:02:00 [facility] TRANSFUSE PACKED RBC 2022-12-31 Gu, [facility] of 06:15:00 [facility] TRANSFUSE PACKED RBC 2022-12-31 [facility], [facility] of 06:15:00 [facility] PREPARE PACKED RBC 2022-12-31 Guba, [facility] of 05:50:01 [facility] PREPARE PACKED RBC 2022-12-31 Guba, [facility] of 05:50:01 [facility] GASTRIN 2022-12-31 [facility], [facility] of 04:24:00 [facility] PHOSPHORUS 2022-12-31 [facility], [facility] of 04:24:00 [facility] MAGNESIUM 2022-12-31 [facility] of 04:24:00 [facility] BASIC METABOLIC PANEL (NA, K, CL, 2022-12-31 [facility], [facility] of CO2, GLUCOSE, BUN, CREATININE, CA) 04:24:00 [facility] CBC WITH DIFF 2022-12-31 [facility] of 04:24:00 [facility] PROTHROMBIN TIME / INR 2022-12-31 [facility], [facility] of 04:24:00 [facility] ACTIVATED PARTIAL THRMPLAS GARO 2022-12-31 [facility], [facility] of 04:24:00 [facility] MRSA / MSSA SCREEN BY PCR, ANGIE 2022-12-31 [facility] of 04:24:00 [facility] GASTRIN 2022-12-31 [facility] of 04:24:00 [facility] PHOSPHORUS 2022-12-31 Gu, [facility] of 04:24:00 [facility] MAGNESIUM 2022-12-31 [facility] of 04:24:00 [facility] BASIC METABOLIC PANEL (NA, K, CL, 2022-12-31 [facility], [facility] of CO2, GLUCOSE, BUN, CREATININE, CA) 04:24:00 [facility] CBC WITH DIFF 2022-12-31 [facility], [facility] of 04:24:00 [facility] PROTHROMBIN TIME / INR 2022-12-31 [facility], [facility] of 04:24:00 [facility] ACTIVATED PARTIAL THRMPLAS GARO 2022-12-31 [facility], [facility] niversity of 04:24:00 [facility] MRSA / MSSA SCREEN BY PCR, ANGIE 2022-12-31 [facility] of 04:24:00 [facility] XR KUB 2022-12-31 [facility] of 02:49:25 [facility] XR KUB 2022-12-31 [facility] of 02:49:25 [facility] TRANSFUSE PACKED RBC 2022-12-31 [facility] y of 02:03:00 F [facility] TRANSFUSE PACKED RBC 2022-12-31 [facility] y of 02:03:00 F [facility] XR CHEST 1 VW 2022-12-31 [facility] of 01:26:44 F [facility] XR CHEST 1 VW 2022-12-31 [facility] of 01:26:44 F [facility] CT ANGIOGRAM ABDOMEN/PELVIS 2022-12-31 [facility] i[facility] of 01:25:42 F [facility] CT ANGIOGRAM ABDOMEN/PELVIS 2022-12-31 Pa[facility] Un iversity of 01:25:42 F [facility] POCT TEST 2022-12-31 [facility] of 00:56:00 F [facility] POCT TEST 2022-12-31 [facility] of 00:56:00 F [facility] HB ABO GROUPING 2022-12-31 [facility] of 00:42:00 F [facility] HB ABO GROUPING 2022-12-31 [facility] of 00:42:00 F [facility] URINALYSIS 2022-12-31 [facility] of 00:26:00 F [facility] URINALYSIS 2022-12-31 [facility] of 00:26:00 F [facility] LIPASE 2022-12-30 [facility] of 23:11:00 F [facility] MAGNESIUM 2022-12-30 [facility] of 23:11:00 F [facility] COMP. METABOLIC PANEL ([id number]) 2022-12-30 [facility] of 23:11:00 F [facility] CBC WITH DIFF 2022-12-30 [facility] of 23:11:00 F [facility] LIPASE 2022-12-30 [facility] of 23:11:00 F [facility] MAGNESIUM 2022-12-30 [facility] of 23:11:00 F [facility] COMP. METABOLIC PANEL ([id number]) 2022-12-30 [facility] of 23:11:00 F [facility] CBC WITH DIFF 2022-12-30 [facility] of :11:00 F [facility] HOSPITAL ADMISSION 2022-12-30 [facility] of 05:01:00 Unassigned, No [facility] HOSPITAL ADMISSION 2022-12-30 [facility] of 05:01:00 Unassigned, No [facility] ENDOSCOPY PROCEDURE DOCUMENTATION 2022-12-30 [facility] of 05:01:00 Unassigned, No [facility] CBC WITH DIFF 2022-06-01 [facility] of 17:35:00 [facility] Encounters Start End Encounter Admission Attending Care Care Encounter Source Date/Time Date/Time Type Type Clinicians Facility Department ID 2021-08-14 Outpatient Hardik LUDWIG [facility] ZOLTAN [id number] Univers 11:29:47 [facility] 2021-08-11 Outpatient Hardik GELLER [facility] ZOLTAN [id number] Univers 17:24:29 [facility] 2021-08-[address] [facility] [id number] Univers 23:51:50 ity [facility] 2023-06-03 2023-06-03 Outpatient Hardik ARAMBULA [facility] [id number] Univers 11:30:00 11:30:00 TUCKER lee [facility] 2023-05-28 2023-05-28 [facility] 1.2.840.114 [id number] Univers 00:00:00 00:00:00 [facility] 350.1.13.10 it y of [place] 4.2.7.2.686 Maxim as JORGE?BLEA [phone] Ri dicyousif [address] MEDICAL OFFICE BUILDING 2023-04-09 2023-04-09 Outpatient R BERTA [facility] [id number] Univers 09:30:00 09:30:00 ANDREW ity o f [facility] 2023-03-19 2023-03-19 Patient Corley [facility] 1.2.840.114 [id number] Univers 00:00:00 00:00:00 Secure MARTA Velez 350.1.13.10 ity of [place] [id number] [address] [facility] 2023-03-18 2023-03-[address] [facility] 1.2.840.114 [id number] Univers 15:45:00 16:00:00 Visit [facility] 350.1.13.10 it[place] [id number] [facility] AND DELL [address] [place] [facility] 2023-03-18 2023-03-18 Outpatient R ROMINA [facility] [id number] Univers 14:30:00 15:30:54 MEME baez yanet [facility] 2023-03-18 2023-03-18 Office Elizabeth Crook [facility] 1.2 .840.114 [id number] Univers 14:30:00 15:30:54 Visit Meme Vanegas MULTISPEC 350.1.13.10 it[place] [id number] [address] [facility] 2023-03-01 2023-03-01 Emanuel Arambula [facility] 1.2.840.114 [id number] Univers 00:00:00 00:00:00 Tucker [facility] 350.1.13.10 it y of [place] 4.2.7.2.686 Maxim as JORGE?BLEA [id number] Ri dical KRISTIAN[address] MEDICAL OFFICE BUILDING 2023-02-27 2023-02-27 [facility] 1.2.840.114 [id number] Univers 00:00:00 00:00:00 Tucker HEALTH 350.1.13.10 it y of [place] 4.2.7.2.686 Maxim as JORGE?BLEA [id number] [address] OFFICE BUILDING 2023-02-26 2023-02-26 [facility] 1.2.294.760 [id number] Univers 00:00:00 00:00:00 José Manuel MULTISPEC 350.1.13.10 it[place] [id number] [facility] AND MANNIE [address] [place] [address] [facility]ET[facility] CLINIC 2023-01-18 2023-01-18 [facility] 1.2.840.114 [id number] Univers 00:00:00 00:00:00 Tucker HEALTH 350.1.13.10 it y of [place] 4.2.7.2.686 Maxim as JORGE?BLEA [id number] [address] OFFICE [facility] 2023-01-18 2023-01-18 [facility] 1.2.840.114 [id number] Univers 00:00:00 00:00:00 Tucker HEALTH 350.1.13.10 it y of [place] 4.2.7.2.686 Maxim as JORGE?BLEA [id number] [address] OFFICE [facility] 2023-01-17 2023-01-17 [facility] 1.2.840.114 [id number] Univers 00:00:00 00:00:00 Tucker HEALTH 350.1.13.10 it y of [place] 4.2.7.2.686 Maxim as JORGE?BLEA [id number] [address] OFFICE [facility] 2023-01-16 2023-01-16 Office Shruthi Wise [facility] 1.2.840. 114 [id number] Univers 14:00:00 14:15:00 Visit Meme Vanegas MULTISPEC 350.1.13.10 ity [place] [id number] [facility] AND CHAND [address] [facility] 2023-01-16 2023-01-16 Outpatient Hardik VANEGAS [facility] [id number] Univers 14:00:00 14:00:00 MEME ity o f [facility] 2023-01-11 2023-01-11 Telephone Emeka [facility] 1.2.088.588 [id number] Univers 00:00:00 00:00:00 José Manuel SPECIALTY 350.1.13.10 ity of [place]jose CARE 4.2.7.2.686 Maxim as CENTER AT [id number] Ri amor DEBBIE 072 [facility] 2023-01-11 2023-01-11 Telephone Ralf [facility] 1.2.151.256 [id number] Univers 00:00:00 00:00:00 Tucker HEALTH 350.1.13.10 it y of [place] 4.2.7.2.686 Maxim as JORGE?BLEA [id number] Ri amor GENA [address] [place] MEDICAL OFFICE BUILDING 2023-01-09 2023-01-09 Orders Doctor EMEKA 1.2.840.114 [id number] Univers 00:00:00 00:00:00 Only Unassigned, MARIMAR 350.1.13.10 ity of [place] [facility] 4.2.7.2.686 Maxim as [id number] [facility] [address] 2023-01-06 2023-01-06 Patient Phan, Chuck [facility] 1.2.840.114 [id number] Univers 00:00:00 00:00:00 Secure Msg Y HEALTH 350.1.13.10 ity of CLINICS 4.2.7.2.[place] [id number] [facility] [address] 2023-01-03 2023-01-03 Transition [facility] 1.2.840.114 [id number] Univers 00:00:00 00:00:00 of Care Lovely [place] 350.1.13.10 i ty of [place]2.7.2.[place] [id number] [facility] [address] 2022-12-30 2023-01-02 Inpatient X FRITZ [facility] [id number] Univers 17:21:00 17:36:00 CHRISTOPHER it y of [facility] 2022-12-30 2023-01-02 [facility] Shilpa Barbosa 1.2.8 40.114 [id number] Univers 17:21:00 17:36:00 Encounter Bigg Dodd 350.1.13.10 ity of [facility] 4.2.7.2.686 [place] [id number] Medical [address] 2023-01-01 2023-01-01 Surgery [facility] 1.2.684.560 [id number] Univers 10:02:00 10:49:00 Akshata ICAL 350.1.13.10 it y of SCIENCES 4.2.7.2.686 Maxim as BLDG [id number] [facility] [address] 2022-12-28 2022-12-28 [facility] [id number] Univers 00:00:00 00:00:00 TUCKER ity of [facility] 2022-12-05 2022-12-05 Telephone [facility] 1.2.549.961 [id number] Univers 00:00:00 00:00:00 [employer] 350.1.13.10 it y [facility] 4.2.7.2.686 Maxim as JORGE?BLEA [id number] Ri amor AVERY [address] [place] [address] MEDICAL OFFICE BUILDING 2022-11-30 2022-11-30 Outpatient R [facility] [id number] Univers 09:30:00 10:48:41 TUCKER ity of [facility] 2022-11-30 2022-11-30 Office [facility] 1.2.840.114 [id number] Univers 09:30:00 10:48:41 Visit Tucker Chumen Wenwen 350.1.13.10 it y of [place] 4.2.7.2.686 Maxim as JORGE?BLEA [id number] Ri amor [address] MEDICAL OFFICE BUILDING 2022-10-15 2022-10-15 Outpatient Hardik BRADFORD [facility] [id number] Univers 12:30:00 12:30:00 OCHOA lee [facility] 2022-10-11 2022-10-11 Emanuel [facility] 1.2.840.114 [id number] Univers 00:00:00 00:00:00 Tucker HEALTH 350.1.13.10 it y of [place] 4.2.7.2.686 Maxim as JORGE?BLEA [id number] [address] OFFICE [facility] 2022-10-10 2022-10-10 Emanuel [facility]NEW [facility] 1.2.840.114 [id number] Univers 00:00:00 00:00:00 Tucker HEALTH 350.1.13.10 it y of [place] 4.2.7.2.686 Maxim as JORGE?BLEA [id number] [address] OFFICE [facility] 2022-10-08 2022-10-08 Emanuel [facility]NEW [facility] 1.2.840.114 [id number] Univers 00:00:00 00:00:00 Tucker HEALTH 350.1.13.10 it y of [place] 4.2.7.2.686 Maxim as JORGE?BLEA [id number] [address] OFFICE [facility] 2022-09-12 2022-09-12 Emanuel Ar[facility]ulaNEW [facility] 1.2.840.114 [id number] Univers 00:00:00 00:00:00 Tucker HEALTH 350.1.13.10 it y of [place] 4.2.7.2.686 Maxim as JORGE?BLEA [id number] [address] OFFICE [facility] 2022-09-03 2022-09-03 Outpatient Hardik SAWYER [facility] [id number] Univers 11:00:00 11:00:00 DOROTA lee [facility] 2022-09-03 2022-09-03 Outpatient Hardik SAWYER [facility] [id number] Univers 11:00:00 11:00:00 DOROTA lee [facility] 2022-08-21 2022-08-21 Emanuel [facility]NEW [facility] 1.2.840.114 [id number] Univers 00:00:00 00:00:00 Tucker HEALTH 350.1.13.10 it y of [place] 4.2.7.2.686 Maxim as JORGE?BLEA [id number] [address] OFFICE [facility] 2022-08-02 2022-08-02 Patient DawsonNEW [facility] 1.2.840.114 [id number] Univers 00:00:00 00:00:00 Secure Msg Cece GOODE 350.1.13.10 ity of [facility] 4.2.7.2.686 Maxim as JORGE?BLEA [id number] [address] OFFICE [facility] 2022-07-30 2022-07-30 Telephone [facility]NEW [facility] 1.2.972.752 [id number] Univers 00:00:00 00:00:00 Tucker HEALTH 350.1.13.10 it y of [place] 4.2.7.2.686 Maxim as JORGE?BLEA [id number] [address] OFFICE [facility] 2022-07-27 2022-07-27 Outpatient R RALF [facility] [id number] Univers 13:30:00 15:11:23 TUCKERJANINE lee [facility] 2022-07-27 2022-07-27 Office [facility] 1.2.840.114 [id number] Univers 13:30:00 15:11:23 Visit Tucker GOODE 350.1.13.10 it y [facility] 4.2.7.2.686 Maxim as JORGE?BLEA [id number] [address] OFFICE [facility] 2022-07-27 2022-07-27 Sweat Band Separator Lab, Ang - Db [facility] 1.2.840.1 14 [id number] Univers 14:15:00 14:30:00 Visit Tucker Arambula 350.1.13.10 ity of [place] 4.2.7.2.686 Maxim as JORGE?BLEA [id number] [facility] 353 [facility] OFFICE [facility] 2022-07-19 2022-07-19 Refheena SawyerNEW [facility]RISE [facility] 1.2.840.114 [id number] Univers 00:00:00 00:00:00 Dorota HEALTH 350.1.13.10 ity of [place] 4.2.7.2.686 Maxim as JORGE?BLEA [id number] [address] OFFICE [facility] 2022-07-16 2022-07-16 Outpatient R RALF [facility] [id number] Univers 14:00:00 14:00:00 TUCKER ity [facility] 2022-06-28 2022-06-28 Refill [facility] 1.2.840.114 [id number] Univers 00:00:00 00:00:00 Dorota HEALTH 350.1.13.10 ity of [facility] 4.2.7.2.686 Maxim as JORGE?BLEA [id number] [address] OFFICE [facility] 2022-06-06 2022-06-06 Refheena ArambulaNEW [facility] 1.2.840.114 [id number] Univers 00:00:00 00:00:00 [facility] 350.1.13.10 it y of [facility] 4.2.7.2.686 Maxim as JORGE?BLEA [id number] [address] 2022-06-04 2022-06-04 Telephone SilverioNEW [facility] 1.2.084.411 [id number] Univers 00:00:00 00:00:00 [facility] 350.1.13.10 ity of [place] 4.2.7.2.686 Maxim as JORGE?BLEA [id number] [address] OFFICE [facility] 2022-06-01 2022-06-01 Sweat Band Separator Lab, Ang - Db [facility] 1.2.840.1 14 [id number] Univers 12:30:00 12:45:00 Visit [facility] 350.1.13.10 ity of [facility] 4.2.7.2.686 Maxim as JORGE?BLEA [id number] [address] OFFICE [facility] 2022-06-01 2022-06-01 Outpatient [facility] [id number] Univers 11:20:00 12:13:24 [place] [facility] 2022-06-01 2022-06-01 Office [facility] 1.2.840.114 [id number] Univers 11:20:00 12:13:24 Visit Dorota HEALTH 350.1.13.10 ity of [place] 4.2.7.2.686 Maxim as JORGE?BLEA [id number] [address] MEDICAL OFFICE [facility] 2022-06-01 2022-06-01 Outpatient [facility] [id number] Univers 11:20:00 12:13:24 [facility] 2022-06-01 2022-06-01 Outpatient [facility] [id number] Univers 11:20:00 12:13:24 [facility] 2022-06-01 2022-06-01 Refill [facility]NEW [facility] 1.2.840.114 [id number] Univers 00:00:00 00:00:00 Dorota HEALTH 350.1.13.10 ity of [place] 4.2.7.2.686 Maxim as JORGE?BLEA [id number] [address] OFFICE [facility] 2022-05-31 2022-05-31 Refheena DuncanNEW [facility]RISE [facility] 1.2.840.114 [id number] Univers 00:00:00 00:00:00 Nam HEALTH 350.1.13.10 it y of [place] 4.2.7.2.686 Maxim as JORGE?BLEA [id number] [address] MEDICAL OFFICE [facility] 2022-05-31 2022-05-31 Telephone [facility]NEW [facility] 1.2.873.554 [id number] Univers 00:00:00 00:00:00 Tucker HEALTH 350.1.13.10 it y of [place] 4.2.7.2.686 Maxim as JORGE?BLEA [id number] [address] MEDICAL OFFICE [facility] 2022-05-28 2022-05-28 Outpatient [facility] [id number] Univers 16:20:00 16:20:00 [facility] 2022-05-24 2022-05-24 Outpatient R SILVERIO [facility] [id number] Univers 16:20:00 16:20:00 DOROTA bernadette [facility] 2022-05-07 2022-05-07 Refheena Arambula [facility] 1.2.840.114 [id number] Univers 00:00:00 00:00:00 Tucker HEALTH 350.1.13.10 it y of [place] 4.2.7.2.686 Maxim as JORGE?BLEA [id number] [address] MEDICAL OFFICE [facility] 2022-05-07 2022-05-07 Transition Catrachitasimba [facility] 1.2.840.114 [id number] Univers 00:00:00 00:00:00 of Care Karoline [place] 350.1.13.10 i ty of [place] 4[place].2.686 [place] [id number] [facility] [address] [place] 2022-04-30 2022-05-05 Inpatient X NICO [facility] [id number] Univers 14:21:00 13:34:00 CANDACE lee [facility] 2022-04-30 2022-05-05 [facility] Gary Price [facility] 1.2.840. 114 [id number] Univers 14:21:00 13:34:00 Encounter Candace Walsh 350.1.13.10 ity of [place] 4.2.7.2.686 [facility] [id number] [place] [id number] [place] 2022-04-30 2022-04-30 Telephone Ralf [facility] [id number] [id number] Univers 00:00:00 00:00:00 [facility] 350.1.13.10 it y of [place] 4.2.7.2.686 Maxim as JORGE?BLEA [id number] [address] MEDICAL OFFICE [facility] 2022-04-30 2022-04-30 Emanuel Duncan [facility] 1.2.840.114 [id number] Univers 00:00:00 00:00:00 Nam HEALTH 350.1.13.10 it y of [place] 4.2.7.2.686 Maxim as JORGE?BLEA [phone] Ri amor [address] OFFICE [facility] 2022-04-07 2022-04-07 Refill [facility] 1.2.840.114 [id number] Univers 00:00:00 00:00:00 Ketty HEALTH 350.1.13.10 it y of [place] 4.2.7.2.686 Maxim as JORGE?BLEA [phone] [address] OFFICE [facility] 2022-03-20 2022-03-20 Telephone [facility] 1.2.818.444 [id number] Univers 00:00:00 00:00:00 Tucker HEALTH 350.1.13.10 it y of [place] 4.2.7.2.686 Maxim as JORGE?BLEA [phone] [address] OFFICE [facility] 2022-03-19 2022-03-19 [facility]phone [facility] 1.2.230.156 [id number] Univers 00:00:00 00:00:00 Tucker HEALTH 350.1.13.10 it y of [place] 4.2.7.2.686 Maxim as JORGE?BLEA [id number] [address] OFFICE [facility] 2022-03-14 2022-03-14 [facility]phone [facility] 1.2.693.847 [id number] Univers 00:00:00 00:00:00 Tucker HEALTH 350.1.13.10 it y of [place] 4.2.7.2.686 Maxim as JORGE?BLEA [phone] [address] OFFICE [facility] 2022-03-13 2022-03-13 [facility] 1.2.840.114 [id number] Univers 00:00:00 00:00:00 Tucker HEALTH 350.1.13.10 it y of [place] 4.2.7.2.686 Maxim as JORGE?BLEA [phone] [address] OFFICE [facility] 2022-02-12 2022-02-12 [facility] 1.2.840.114 [id number] Univers 00:00:00 00:00:00 Tucker HEALTH 350.1.13.10 it y of [place] 4.2.7.2.686 Maxim as JORGE?BLEA [phone] Ri amor AVERY 044 [facility] OFFICE [facility] 2022-01-19 2022-01-19 Outpatient Hardik ARAMBULA [facility] [id number] Univers 15:00:00 15:00:00 TUCKER lee [facility] 2021-12-27 2021-12-27 Telephone [facility]NEW [facility] 1.2.840.114 [id number] Univers 00:00:00 00:00:00 Kiel SPECIALTY 350.1.13.[address] [facility] [place].2.7.2.[place] C[place] AT [phone] Ri amor LEWIS [address] [place] [address] 2021-12-26 2021-12-26 Outpatient Hard[facility] [id number] Univers 10:30:00 10:30:00 KIEL lee [facility] 2021-12-05 2021-12-05 Outpatient Hardik [facility] [id number] Univers 10:30:00 10:30:00 TUCKER ity [facility] 2021-11-30 2021-11-30 Outpatient Hardik [facility] [id number] Univers 10:30:00 10:30:00 TUCKER analibernadette [facility] 2021-11-13 2021-11-13 Telephone [facility] 1..279.749 [id number] Univers 00:00:00 00:00:00 Tucker HEALTH 350.1.13.10 it y of [place] 4.2.7.2.686 Maxim as JORGE?BLEA [phone] Ri amor AVERY [address] [place] [address] 2021-10-16 2021-10-16 Refill [facility] 1.2.840.114 [id number] Univers 00:00:00 00:00:00 Tucker HEALTH 350.1.13.10 it y of [place] 4.2.7.2.686 Maxim as JORGE?BLEA [phone] Ri amor AEVRY [address] [place] [address] OFFICE BUILDING 2021-10-03 2021-10-03 [facility] 1.2.840.114 [id number] Univers 00:00:00 00:00:00 Management Michelle Dye MARYCARMEN 350.1.13.10 ity of [place].2.7.2.[place] [id number] [address] 2021-09-19 2021-09-19 Emanuel HendricksonNEW [facility]RISE [facility] 1.2.840.114 [id number] Univers 00:00:00 00:00:00 José Manuel SPECIALTY 350.1.13.10 ity of [place] CARE 4.2.7.2.686 Maxim as CENTER AT [phone] Ri amor LEWIS [address] [place] [address] 2021-09-18 2021-09-18 Office [facility]NEW [facility] 1.2.623.216 [id number] Univers 12:57:33 13:44:40 Visit Kiel SPECIALTY 350.1.13.10 ity of [place] C[place] 4.2.7.2.686 [place] C[place] AT [phone] Ri amor LEWIS [address] [facility] 2021-09-18 2021-09-18 Outpatient Hardik [facility] [id number] Univers 12:30:00 13:44:40 KIEL lee [facility] 2021-09-18 2021-09-18 Outpatient Hardik [facility] [id number] Univers 12:30:00 12:30:00 KIEL lee [facility] 2021-09-18 2021-09-18 Emanuel HendricksonNEW [facility] 1.2.840.114 [id number] Univers 00:00:00 00:00:00 José Manuel SPECIALTY 350.1.13.10 ity of [place] CARE 4.2.7.2.686 Maxim as CENTER AT [phone] Ri amor LEWIS [address] [place] [address] 2021-09-15 2021-09-15 Outpatient Hardik [facility] [id number] Univers 10:20:00 10:20:00 JYOTI lee [facility] 2021-09-15 2021-09-15 Outpatient R FRAZIER [facility] [id number] Univers 10:20:00 10:20:00 JYOTI jesus [facility] 2021-09-15 2021-09-15 Refheena HendricksonNEW [facility]RISE [facility] 1.2.840.114 [id number] Univers 00:00:00 00:00:00 José Manuel SPECIALTY 350.1.13.10 [facility] 4.2.7.2.686 Maxim as CENTER AT [phone] Ri amor LEWIS [address] [place] [address] 2021-09-15 2021-09-15 Elizabethheena HendricksonNEW [facility]RISE [facility] 1.2.840.114 [id number] Univers 00:00:00 00:00:00 José Manuel SPECIALTY 350.1.13.10 ity of [facility] 4.2.7.2.686 Maxmi as CENTER AT [phone] Ri amor LEWIS [address] [place] [address] 2021-09-12 2021-09-12 Emanuel ArambulaNEW SUNRISE [facility] 1.2.840.114 [id number] Univers 00:00:00 00:00:00 [facility] 350.1.13.10 it y of [place] 4.2.7.2.686 Maxim as JORGE?BLEA [phone] Ri amor AVERY [address] [place] [address] MEDICAL OFFICE BUILDING 2021-09-11 2021-09-11 Outpatient [facility] [id number] Univers 14:00:00 14:00:00 KIEL analibernadette [facility] 2021-09-04 2021-09-04 Outpatient R [facility] [id number] Univers 07:50:55 23:59:00 KIEL analiy [facility] 2021-09-04 2021-09-04 [facility] 1.2.840.114 [id number] Univers 07:50:55 23:59:00 Encounter Kiel TOBIN 350.1.13.10 ity of [place] 4.2.7.2.686 [place] [phone] [facility] [address] [place] [address] 2021-08-28 2021-08-28 Office [facility] 1.2.608.111 [id number] Univers 13:34:20 14:14:59 Visit Kiel [facility] 350.1.13.[address] [facility] 4.2.7.2.686 [facility] AT [phone] Ri sebasyousif LEWIS [address] [facility] 2021-08-28 2021-08-28 Outpatient Hardik [facility] [id number] Univers 13:30:00 14:14:59 KIEL lee [facility] 2021-08-28 2021-08-28 Outpatient Hardik [facility] [id number] Univers 13:30:00 14:14:59 KIEL lee [facility] 2021-08-28 2021-08-28 Orders Doctor HENDRICKSON 1.2.840.114 [id number] Univers 00:00:00 00:00:00 Only Unassigned, MARIMAR 350.1.13.10 ity of [place] [facility] 4.2.7.2.686 Maxim as [id number] [address] 2021-08-22 2021-08-22 Outpatient R SH[facility]ARQUIQUEADENA [facility] [id number] Univers 10:15:00 10:15:00 KIEL lee [facility] 2021-08-22 2021-08-22 Outpatient Hardik [facility] [id number] Univers 10:15:00 10:15:00 KIEL lee [facility] 2021-08-15 2021-08-15 Outpatient Hardik [facility]AD[facility] [id number] Univers 14:30:00 15:47:32 TUCKER lee [facility] 2021-08-15 2021-08-15 Office [facility]NEW [facility] 1.2.840.114 [id number] Univers 14:26:25 15:47:32 [facility] 350.1.13.10 it y of [place] 4.2.7.2.686 Maxim as JORGE?BLEA [id number] Ri sebasyousif AVERY [address] [place] [address] MEDICAL OFFICE BUILDING 2021-07-27 2021-07-27 Telephone Ralf [facility] 1.2.842.448 [id number] Univers 00:00:00 00:00:00 [facility] 350.1.13.10 it y of [place] 4.2.7.2.686 Maxim as Jorge?Blea [phone] Ri amor [address] Medical Office [facility] 2021-07-19 2021-07-19 Outpatient R [facility]AD[facility] [id number] Univers 13:45:00 13:45:00 [facility] 2021-07-18 2021-07-18 [facility] 1.2.840.114 [id number] Univers 14:00:00 23:59:00 Encounter Andrew [place] 350.1.13.10 ity of [place] 4.2.7.2.686 [place] [facility] [phone] [address] 2021-07-18 2021-07-18 Outpatient R [facility]AAD[facility] [id number] Univers 00:00:00 00:00:00 ANDREW lee o [facility] 2021-07-17 2021-07-17 Outpatient R [facility] [id number] Univers 14:00:00 14:00:00 [facility] 2021-07-11 2021-07-11 Outpatient Hardik [facility]DR[facility]SONAD[facility] [id number] Univers 11:00:00 11:00:00 [facility] 2021-07-10 2021-07-10 Patient [facility]NEW [facility] 1.2.840.114 [id number] Univers 00:00:00 00:00:00 Secure Msg [facility] 350.1.13.10 ity of [place] 4.2.7.2.686 Maxim as Jorge?Blea [phone] Ri sebas[address] Office [facility] 2021-07-10 2021-07-10 Letter [facility]NEW [facility] 1.2.840.114 [id number] Univers 00:00:00 00:00:00 (Out) [facility] 350.1.13.10 it y of [place] 4.2.7.2.686 Maxim as Jorge?Blea [phone] Ri sebas[address] Medical Office [facility] 2021-07-07 2021-07-07 [facility] 1.2.840.114 [id number] Univers 16:00:00 23:59:00 Encounter [facility] 350.1.13.10 ity of [place] 4.2.7.2.686 Maxim as Jorge?Blea [phone] [facility] [address] Medical Office [facility] 2021-07-07 2021-07-07 [facility] 1.2.840.114 [id number] Univers 15:43:59 15:59:00 Encounter [facility] 350.1.13.10 ity of [place] 4.2.7.2.686 Maxim as Jorge?Blea [id number] [address] Office [facility] 2021-07-07 2021-07-07 Outpatient [facility] [id number] Univers 14:20:00 14:20:00 TUCKER jesus [facility] 2021-07-07 2021-07-07 Outpatient R [facility] [id number] Univers 00:00:00 00:00:00 TUCKER ity [facility] 2021-07-07 2021-07-07 Refill [facility] 1.2.840.114 [id number] Univers 00:00:00 00:00:00 [facility] 350.1.13.10 it y of [place] 4.2.7.2.686 Maxim as Jorge?Blea [phone] [address] Office [facility] 2021-07-06 2021-07-06 [facility]phone [facility] 1.2.474.095 [id number] Univers 00:00:00 00:00:00 [facility] 350.1.13.10 it y of [place] 4.2.7.2.686 Maxim as Jorge?Blea [phone] [address] Office [facility] 2021-07-04 2021-07-04 Office [facility] 1.2.840.114 [id number] Univers 13:09:58 13:59:18 Visit [facility] 350.1.13.10 it y of [place] 4.2.7.2.686 Maxim as Jorge?Blea [phone] Ri amor avery [address] [place] [address] Medical Office Building 2021-07-04 2021-07-04 Outpatient R RALF, [facility] [id number] Univers 13:00:00 13:00:00 TUCKER lee of [facility] 2021-06-13 2021-06-13 Outpatient R BERTA, [facility] [id number] Univers 00:00:00 00:00:00 ANDREW lee o f [facility] 2021-06-12 2021-06-12 Patient [facility] 1.2.840.114 [id number] Univers 00:00:00 00:00:00 Secure Msg José Manuel SPECIALTY 350.1.13.10 ity of [place] CARE 4.2.7.2.686 Maxim as CENTER AT [phone] Ri amor LEWIS [address] [place] [address] 2021-06-12 2021-06-12 Patient [facility]NEW [facility] 1.2.840.114 [id number] Univers 00:00:00 00:00:00 Secure Msg José Manuel SPECIALTY 350.1.13.10 ity of [place] CARE 4.2.7.2.686 Maxim as CENTER AT [phone] Ri amor LEWIS [address] [place] [address] 2021-06-07 2021-06-07 Patient Emeka [facility] 1.2.840.114 [id number] Univers 00:00:00 00:00:00 Secure Msg José Manuel SPECIALTY 350.1.13.10 ity of [place] CARE 4.2.7.2.686 Maxim as CENTER AT [id number] Ri amor LEWIS [address] [place] [address] 2021-06-07 2021-06-07 Patient Emeka [facility] 1.2.840.114 [id number] Univers 00:00:00 00:00:00 Secure Msg José Manuel SPECIALTY 350.1.13.10 ity of [place] CARE 4.2.7.2.686 Maxim as CENTER AT [id number] Ri amor LEWIS [address] [place] [address] 2021-06-02 2021-06-02 Patient [facility] 1.2.840.114 [id number] Univers 00:00:00 00:00:00 Secure Msg José Manuel SPECIALTY 350.1.13.10 ity of [place] CARE 4.2.7.2.686 Maxim as CENTER AT [phone] Ri amor LEWIS [address] [place] [address] 2021-06-02 2021-06-02 Patient [facility] 1.2.840.114 [id number] Univers 00:00:00 00:00:00 Secure Msg José Manuel SPECIALTY 350.1.13.10 ity of [place] CARE 4.2.7.2.686 Maxim as CENTER AT [phone] Ri amor FAULKNERBernadette [address] [place] [address] 2021-05-30 2021-05-30 Outpatient Hardik GELLER [facility] [id number] Univers 00:00:00 00:00:00 ANDREW copeland [facility] 2021-05-29 2021-05-29 Telephone [facility] 1.2.734.702 [id number] Univers 00:00:00 00:00:00 José Manuel SPECIALTY 350.1.13.10 ity of [place] CARE 4.2.7.2.686 Maxim as CENTER AT [phone] Ri amor LEWIS [address] [place] [address] 2021-05-18 2021-05-18 Letter VIC LudwigIT ..840.114 [id number] [id number] Univers 00:00:00 00:00:00 (Out) [facility] 350.1.13.10 i ty of [place] CLINICS 4.2.7.2.686 [place] [phone] [address] 2021-05-16 2021-05-16 [facility] 1.2.840.114 [id number] Univers 00:00:00 00:00:00 Secure Msg Jemima SPECIALTY 350.1.13.10 ity of [place] CARE 4.2.7.2.686 [place] CENTER AT [id number] Ri amor LEWIS [address] [place] [address] 2021-05-15 2021-05-15 Hospital [facility] 1.2.840.114 [id number] Univers 11:44:00 14:20:00 Encounter Jemima ICAL 350.1.13.10 ity of [place] SCIENCES 4.2.7.2.686 Maxim as BLDG [id number] [facility] [address] [place] 2021-05-15 2021-05-15 Surgery Cliff [facility] 1.2.840.114 [id number] Univers 12:13:00 12:44:00 Jemima ICAL 350.1.13.10 it y of [place] SCIENCES 4.2.7.2.686 Maxim as BLDG [id number] [facility] [address] [place] 2021-05-15 2021-05-15 Orders Doctor EMEKA 1.2.840.114 [id number] Univers 00:00:00 00:00:00 Only Unassigned, MARIMAR 350.1.13.10 ity of [place] [facility] 4.2.7.2.686 Maxim as [id number] [address] 2021-05-15 2021-05-15 Telephone Emeka [facility] 1.2.896.567 [id number] Univers 00:00:00 00:00:00 José Manuel SPECIALTY 350.1.13.10 ity of [place] CARE 4.2.7.2.686 Maxim as CENTER AT [phone] Ri amor LEWIS 2 [facility] 2021-05-11 2021-05-11 Outpatient R [facility] [id number] Univers 13:00:00 13:00:00 ity of [facility] 2021-05-11 2021-05-11 Orders Doctor EMEKA 1.2.840.114 [id number] Univers 00:00:00 00:00:00 Only Unassigned, MARIMAR 350.1.13.10 ity of [place] [facility] 4.2.7.2.686 Maxim as [id number] [address] 2021-05-09 2021-05-09 Office Emeka [facility] 1.2.840.114 [id number] Univers 09:58:46 16:58:47 Visit José Manuel SPECIALTY 350.1.13.10 ity of [place] CARE 4.2.7.2.686 Maxim as CENTER AT [id number] Ri amor LEWIS 2 [facility] 2021-05-09 2021-05-09 Sweat Band Separator Vls-Lab [facility] 1.2.840.114 [id number] Univers 10:43:19 10:58:19 Visit José Manuel Hendrickson SPECIALTY 350.1. 13.10 ity of [place] 4.2.7.2.686 [place] CENTER AT [phone] Ri amor LEWIS [address] [facility] 2021-05-09 2021-05-09 Outpatient R EMEKA [facility] [id number] Univers 10:00:00 10:00:00 [facility] 2021-05-09 2021-05-09 Orders Doctor EMEKA 1.2.840.114 [id number] Univers 00:00:00 00:00:00 Only Unassigned, MARIMAR 350.1.13.10 ity of [place] [facility] 4.2.7.2.686 Maxim as [phone] [address] 2021-04-05 2021-04-05 Refill Monserrat [facility] 1.2.840.114 [id number] Univers 00:00:00 00:00:00 Sarah vogt N SPECIALTY 350.1.13.10 ity of CARE 4.2.7.2.686 [place] CENTER AT [phone] Ri amor LEWIS [address] [place] [address] 2021-04-04 2021-04-04 Refheena German [facility] 1.2.840.114 [id number] Univers 00:00:00 00:00:00 Sarah vogt N SPECIALTY 350.1.13.10 ity of CARE 4.2.7.2.686 [place] CENTER AT [phone] Ri amor LEWIS [address] [place] [address] 2020-09-29 2020-09-29 Outpatient R EKYLA [facility] [id number] Univers 14:30:00 14:30:00 CHYNA ity [facility] 2020-06-16 2020-06-16 Outpatient R [facility] [id number] Univers 15:00:00 15:00:00 ity [facility] 2020-06-16 2020-06-16 Telemedici Sarah Santacruz [facility] 1.2.840.114 [id number] Univers 06:40:26 07:10:26 ne Visit Chyna Ramires SPECIALTY 350.1.13.1 0 ity of [place] 4.2.7.2.686 [place] CENTER AT [phone] Ri amor LEWIS 2 [facility] 2020-05-23 2020-05-23 Outpatient R YADIRA [facility] [id number] Univers 14:30:00 14:30:00 WONDIFUL ity o f [facility] 2020-05-05 2020-05-06 Office Sarah Santacruz [facility] 1.2 .840.114 [id number] Univers 15:04:28 11:41:53 Visit Rohit Pastor SPECIALTY 350.1.13.10 ity of [place] 4.2.7.2.686 [place] CENTER AT [phone] Ri amor LEWIS [address] [place] [address] 2020-05-05 2020-05-05 Outpatient R DAWIT [facility] [id number] Univers 15:00:00 15:00:00 ROHIT ity [facility] 2020-05-05 2020-05-05 Orders Doctor EMEKA 1.2.840.114 [id number] Univers 00:00:00 00:00:00 Only Unassigned, MARIMAR 350.1.13.10 ity of [place] [facility] 4.2.7.2.686 Maxim as [phone] [facility] [address] 2020-03-24 2020-03-24 Transition [facility] 1.2.840.114 [id number] [id number] Univers 00:00:00 00:00:00 of Care Lovely Conroy 350.1.13.10 i ty of [place] 4.2.7.2.686 [place] [id number] [facility] [address] 2020-03-20 2020-03-23 Hospital Shital Mathur [facility] 1.2.840.11 4 [id number] Univers 15:21:32 17:48:00 Encounter Ashish Butts 350.1.13.10 ity of [place] 4.2.7.2.686 [place] [phone] [facility] [address] 2020-01-16 2020-01-16 Telephone EMEKA [place] 1.2.870.698 [id number] Univers 00:00:00 00:00:00 Piper Hradik MINAYA 350.1.13.10 it y of [facility] 4.2.7.2.686 Maxim as [phone] [address] 2020-01-14 2020-01-14 Urgent Pob1, Acute Care Clinic [facility] 1. 2.840.114 [id number] Univers 14:15:31 14:35:31 Care Ramiro [facility] 350.1.13.10 ity [facility] 4.2.7.2.686 Maxim as Professio [phone] Ri dical nal [address] [place] Office Building One 2020-01-14 2020-01-14 Outpatient R RAMIRO [facility] [id number] Univers 14:20:00 14:20:00 [facility] Results Test Description Test Time Test Comments Results Result Comments Source GASTRIN 2023-01-01 20:56:13 Test Item Value Reference Range Interpretation Comme nts GASTRIN (test code = 2333-3) 37 pg/mL 0-100 Performed By: [employer] [place], [place] [address]Cnloiqamub Director: Jimmie Carlson MD, PhD [facility] 20:56:13 Test Item Value Reference Range Interpretation Comments GASTRIN (test code = 37 pg/mL 0-100 Perform ed By: [employer] 2333-3) [address] [place], [place] [address]Qdhrqfhkzr Director: Gustavo Carlson MD, PhD [facility] WITH [id number] 16:48:38 Test Item Value Reference Range Interpretation Comments WBC (test code = 4.70 See_Comment [Automated 7772-2) message] The sy stem which generated this result transmitted reference range : 4.30 - 11.10 10*3/?L. The reference range was not used to interpret this result as normal/abnormal . RBC (test code = 3.52 See_Comment L [Automated 079-8) message] The sy stem which generated this [...] RDW-SD (test code = 45.8 fL 39.0-49.9 92912-4) RDW-CV (test code = 15.7 % 12.0-15.5 H 788-0) PLT (test code = 311 See_Comment [Automated 777-3) message] The sy stem which generated this result transmitted reference range : 166 - 358 10*3/ ?L. The reference r susana was not used to interpret this result as normal/abnormal . MPV (test code = 10.0 fL 9.5-12.9 00620-7) NRBC/100 WBC (test 0.0 See_Comment [Automat ed code = 3327387742) message] The system which generated this result transmitted reference range : 0.0 - 10.0 /100 WBCs. The refer ence range was not u sed to interpret th is result as normal/abnormal . NRBC x10^3 (test code See_Comment [Auto mated = 8136484398) message] The s ystem which generated this result transmitted reference range : 10*3/?L. The reference range was not used to interpret this result as normal/abnormal . GRAN MAT (NEUT) % 50.6 % (test code = 770-8) IMM GRAN % (test code 0.20 % = 2311888869) LYMPH % (test code = 35.1 % 736-9) MONO % (test code = 8.3 % 5905-5) EOS % (test code = 4.5 % 713-8) BASO % (test code = 1.3 % 706-2) GRAN MAT x10^3(ANC) 2.38 10*3/uL 1.88-7.09 (test code = 1546355735) IMM GRAN x10^3 (test 0.00-0.06 code = 9155492781) LYMPH x10^3 (test code 1.65 10*3/uL 1.32-3.29 = 731-0) MONO x10^3 (test code 0.39 10*3/uL 0.33-0.92 = 742-7) EOS x10^3 (test code = 0.21 10*3/uL 0.03-0.39 711-2) BASO x10^3 (test code 0.06 10*3/uL 0.01-0.07 = 704-7) Lab Interpretation Abnormal (test code = 09864-2) [facility] WITH [id number] 16:48:38 Test Item Value Reference Range Interpretation Comments WBC (test code = 4.70 See_Comment [Automated 9490-2) message] The sy stem which generated this [...] RDW-SD (test code = 45.8 fL 39.0-49.9 55781-1) RDW-CV (test code = 15.7 % 12.0-15.5 H 788-0) PLT (test code = 311 See_Comment [Automated 777-3) message] The sy stem which generated this result transmitted reference range : 166 - 358 10*3/ ?L. The reference r susana was not used to interpret this result as normal/abnormal . MPV (test code = 10.0 fL 9.5-12.9 24138-1) NRBC/100 WBC (test 0.0 See_Comment [Automat ed code = [id number]) message] The system which generated this result transmitted reference range : 0.0 - 10.0 /100 WBCs. The refer ence range was not u sed to interpret th is result as normal/abnormal . NRBC x10^3 (test code See_Comment [Auto mated = [id number]) message] The s ystem which generated this result transmitted reference range : 10*3/?L. The reference range was not used to interpret this result as normal/abnormal . GRAN MAT (NEUT) % 50.6 % (test code = 770-8) IMM GRAN % (test code 0.20 % = [id number]) LYMPH % (test code = 35.1 % 736-9) MONO % (test code = 8.3 % 5905-5) EOS % (test code = 4.5 % 713-8) BASO % (test code = 1.3 % 706-2) GRAN MAT x10^3(ANC) 2.38 10*3/uL 1.88-7.09 (test code = 9247776982) IMM GRAN x10^3 (test 0.00-0.06 code = [id number]) LYMPH x10^3 (test code 1.65 10*3/uL 1.32-3.29 = 731-0) MONO x10^3 (test code 0.39 10*3/uL 0.33-0.92 = 742-7) EOS x10^3 (test code = 0.21 10*3/uL 0.03-0.39 711-2) BASO x10^3 (test code 0.06 10*3/uL 0.01-0.07 = 704-7) Lab Interpretation Abnormal (test code = 47098-6) [facility] 2 Units 2023-01-01 12:28:32 Test Item Value Reference Range Interpretation Comments Cross Match Result Compatible (test code = 4409) ISBT Blood Type Code 9500 (test code = 829566) Unit Blood Type (test O Neg code = 4410) Unit Number (test [id number] code = 4411) Blood Expiration Date & Time (test code = 831159) Status Information Issued (test code = 4412) Product Red Blood Cells Identification (test code = 4413) Product Code (test F6295J78 Performed at [facility] code = 4414) [facility] Blood [address] [place], [place] [id number] Free: [phone] A No. [id number] [facility] Packed RBC (in units), 2 Units 2023-01-01 12:28:32 Test Item Value Reference Range Interpretation Comments Cross Match Result Compatible (test code = 4409) ISBT Blood Type Code 9500 (test code = 311195) Unit Blood Type (test O Neg code = 4410) Unit Number (test [id number] code = 4411) Blood Expiration Date [id number] & Time (test code = 382183) Status Information Issued (test code = 4412) Product Red Blood Cells Identification (test code = 4413) Product Code (test N6001A24 Performed at [facility] code = 4414) [facility] - [facility] Blood [address] [place] [address]Toll Free: [phone] A No. [id number] [facility] Packed RBC (in units), 1 Units 2023-01-01 11:08:21 Test Item Value Reference Range Interpretation Comments Cross Match Result Compatible (test code = 4409) ISBT Blood Type Code 9500 (test code = 715272) Unit Blood Type (test O Neg code = 4410) Unit Number (test [id number] code = 4411) Blood Expiration Date 041223277583 & Time (test code = 780819) Status Information Issued (test code = 4412) Product Red Blood Cells Identification (test code = 4413) Product Code (test M6849F39 Performed at [facility] code = 4414) Laboratory Services [facility] Blood [address] [address]Owgn Free: [phone] A No. [id number] [facility] RBC (in units), 1 Units 2023-01-01 11:08:21 Test Item Value Reference Range Interpretation Comments Cross Match Result Compatible (test code = 4409) ISBT Blood Type Code 9500 (test code = 804715) Unit Blood Type (test O Neg code = 4410) Unit Number (test [id number] code = 4411) Blood Expiration Date & Time (test code = 500506) Status Information Issued (test code = 4412) Product Red Blood Cells Identification (test code = 4413) Product Code (test B1761L64 Performed at [facility] code = 4414) Laboratory Services - [facility] Blood [address] [address]Ycvm Free: [phone] A No. [id number] [facility] [id number] 21:19:57 Test Item Value Reference Range Interpretation Comments FERRITIN (test code = 4.2 ng/mL 6.0-137.0 L 7801438477) CIERA (test code = CIERA) Biotin has been reported to cause a negative bias, interpret results relative to patient's use of biotin. Lab Interpretation (test Abnormal code = 40571-4) [facility] [id number] 21:19:57 Test Item Value Reference Range Interpretation Comments FERRITIN (test code = 4.2 ng/mL 6.0-137.0 L 2938434358) CIERA (test code = CIERA) Biotin has been reported to cause a negative bias, interpret results relative to patient's use of biotin. Lab Interpretation (test Abnormal code = 99283-1) [facility] 20:30:30 Test Item Value Reference Range Interpretation Comments IRON (test code = 9035352077) 115 ug/dL 50-160 Lab Interpretation (test code = Normal 34227-2) [facility] Test Item Value Reference Range Interpretation Comments IRON (test code = 8270838274) 115 ug/dL 50-160 Lab Interpretation (test code = Normal 00512-2) [facility] (NA, K, CL, CO2, GLUCOSE, BUN, CREATININE, CA)2022-12-31 11:39:33 Test Item Value Reference Range Interpretation Comments NA (test code = 137 mmol/L 135-145 4234414512) K (test code = 3.7 mmol/L 3.5-5.0 4985662088) CL (test code = 110 mmol/L 98-108 H 4885607999) CO2 TOTAL (test code = 26 mmol/L 23-31 9217633820) AGAP (test code = 1 2-16 L 9127131951) BUN (test code = 7 mg/dL 7-23 0450868474) GLUCOSE (test code = 104 mg/dL 70-110 5464924736) CREATININE (test code = 0.44 mg/dL 0.50-1.04 L 1635019480) CALCIUM (test code = 7.0 mg/dL 8.6-10.6 L 1352463109) eGFR (test code = 156.1 mL/min/1.73m2 9408093649) CIERA (test code = CIERA) Association of [...] tests). Lab Interpretation Abnormal (test code = 73892-9) [facility]20[facility] 11:39:33 Test Item Value Reference Range Interpretation Comments MAGNESIUM (test code = 6480250482) 2.2 mg/dL 1.7-2.4 Lab Interpretation (test code = Normal 03014-2) [facility]2023-[facility]-20 11:39:33 Test Item Value Reference Range Interpretation Comments PHOSPHORUS (test code = 4636225241) 3.2 mg/dL 2.5-5.0 Lab Interpretation (test code = Normal 89094-1) [facility] (NA, K, CL, CO2, GLUCOSE, BUN, CREATININE, CA)2022-12-31 11:39:33 Test Item Value Reference Range Interpretation Comments NA (test code = 137 mmol/L 135-145 4343139877) K (test code = 3.7 mmol/L 3.5-5.0 7830188065) CL (test code = 110 mmol/L 98-108 H 5216947784) CO2 TOTAL (test code = 26 mmol/L 23-31 0464535568) AGAP (test code = 1 2-16 L 3815058468) BUN (test code = 7 mg/dL 7-23 9011331389) GLUCOSE (test code = 104 mg/dL 70-110 9457421457) CREATININE (test code = 0.44 mg/dL 0.50-1.04 L 3711503185) CALCIUM (test code = 7.0 mg/dL 8.6-10.6 L 9070578893) eGFR (test code = 156.1 mL/min/1.73m2 1465519021) CIERA (test code = CIERA) Association of [...] tests). Lab Interpretation Abnormal (test code = 78289-6) [facility] 11:39:33 Test Item Value Reference Range Interpretation Comments MAGNESIUM (test code = 2385623115) 2.2 mg/dL 1.7-2.4 Lab Interpretation (test code = Normal 48634-5) [facility]2023-[facility]-20 11:39:33 Test Item Value Reference Range Interpretation Comments PHOSPHORUS (test code = 3186471778) 3.2 mg/dL 2.5-5.0 Lab Interpretation (test code = Normal 21211-7) [facility] WITH [id number] 11:12:50 Test Item Value Reference Range Interpretation Comments WBC (test code = 7.20 See_Comment [Automated 6990-2) message] The sy stem which generated this result transmitted reference range : 4.30 - 11.10 10*3/?L. The reference range was not used to interpret this result as normal/abnormal . RBC (test code = 2.97 See_Comment L [Automated 274-8) message] The sy stem which generated this [...] RDW-SD (test code = 44.3 fL 39.0-49.9 25031-5) RDW-CV (test code = 15.4 % 12.0-15.5 788-0) PLT (test code = 321 See_Comment [Automated 777-3) message] The sy stem which generated this result transmitted reference range : 166 - 358 10*3/ ?L. The reference r susana was not used to interpret this result as normal/abnormal . MPV (test code = 10.1 fL 9.5-12.9 11146-6) NRBC/100 WBC (test 0.0 See_Comment [Automat ed code = 8163766214) message] The system which generated this result transmitted reference range : 0.0 - 10.0 /100 WBCs. The refer ence range was not u sed to interpret th is result as normal/abnormal . NRBC x10^3 (test code See_Comment [Auto mated = 9094533068) message] The s ystem which generated this result transmitted reference range : 10*3/?L. The reference range was not used to interpret this result as normal/abnormal . GRAN MAT (NEUT) % 62.8 % (test code = 770-8) IMM GRAN % (test code 0.30 % = 2669479557) LYMPH % (test code = 27.1 % 736-9) MONO % (test code = 7.8 % 5905-5) EOS % (test code = 1.3 % 713-8) BASO % (test code = 0.7 % 706-2) GRAN MAT x10^3(ANC) 4.53 10*3/uL 1.88-7.09 (test code = 3435398765) IMM GRAN x10^3 (test 0.00-0.06 code = 4175613147) LYMPH x10^3 (test code 1.95 10*3/uL 1.32-3.29 = 731-0) MONO x10^3 (test code 0.56 10*3/uL 0.33-0.92 = 742-7) EOS x10^3 (test code = 0.09 10*3/uL 0.03-0.39 711-2) BASO x10^3 (test code 0.05 10*3/uL 0.01-0.07 = 704-7) Lab Interpretation Abnormal (test code = 97556-5) [facility] WITH [id number] 11:12:50 Test Item Value Reference Range Interpretation Comments WBC (test code = 7.20 See_Comment [Automated 6690-2) message] The sy stem which generated this result transmitted reference range : 4.30 - 11.10 10*3/?L. The reference range was not used to interpret this result as normal/abnormal . RBC (test code = 2.97 See_Comment L [Automated 789-8) message] The sy [...] RDW-SD (test code = 44.3 fL 39.0-49.9 20796-9) RDW-CV (test code = 15.4 % 12.0-15.5 788-0) PLT (test code = 321 See_Comment [Automated 777-3) message] The sy stem which generated this result transmitted reference range : 166 - 358 10*3/ ?L. The reference r susana was not used to interpret this result as normal/abnormal . MPV (test code = 10.1 fL 9.5-12.9 89043-1) NRBC/100 WBC (test 0.0 See_Comment [Automat ed code = 3276241169) message] The system which generated this result transmitted reference range : 0.0 - 10.0 /100 WBCs. The refer ence range was not u sed to interpret th is result as normal/abnormal . NRBC x10^3 (test code See_Comment [Auto mated = 5094700594) message] The s ystem which generated this result transmitted reference range : 10*3/?L. The reference range was not used to interpret this result as normal/abnormal . GRAN MAT (NEUT) % 62.8 % (test code = 770-8) IMM GRAN % (test code 0.30 % = 6115820800) LYMPH % (test code = 27.1 % 736-9) MONO % (test code = 7.8 % 5905-5) EOS % (test code = 1.3 % 713-8) BASO % (test code = 0.7 % 706-2) GRAN MAT x10^3(ANC) 4.53 10*3/uL 1.88-7.09 (test code = 4683584868) IMM GRAN x10^3 (test 0.00-0.06 code = 7534530785) LYMPH x10^3 (test code 1.95 10*3/uL 1.32-3.29 = 731-0) MONO x10^3 (test code 0.56 10*3/uL 0.33-0.92 = 742-7) EOS x10^3 (test code = 0.09 10*3/uL 0.03-0.39 711-2) BASO x10^3 (test code 0.05 10*3/uL 0.01-0.07 = 704-7) Lab Interpretation Abnormal (test code = 59878-6) [facility] Packed RBC (in units), 1 Units 2022-12-31 05:50:01 Test Item Value Reference Range Interpretation Comments Cross Match Result Compatible (test code = 4409) ISBT Blood Type Code 9500 (test code = 919957) Unit Blood Type (test O Neg code = 4410) Unit Number (test [id number] code = 4411) Blood Expiration Date & Time (test code = 116985) Status Information Issued (test code = 4412) Product Red Blood Cells Identification (test code = 4413) Product Code (test D6393P75 Performed at [facility] code = 4414) Laboratory Services - [facility] Blood [address] [address]Ivxy Free: [phone] A No. [id number] [facility] Packed RBC (in units), 1 Units 2022-12-31 05:50:01 Test Item Value Reference Range Interpretation Comments Cross Match Result Compatible (test code = 4409) ISBT Blood Type Code 9500 (test code = 662276) Unit Blood Type (test O Neg code = 4410) Unit Number (test [id number] code = 4411) Blood Expiration Date & Time (test code = 960572) Status Information Issued (test code = 4412) Product Red Blood Cells Identification (test code = 4413) Product Code (test B0289C82 Performed at [facility] code = 4414) Laboratory Services - [facility] Blood [address] [address]Fimh Free: [phone] A No. [id number] [facility] Met[facility] Panel (NA, K, CL, CO2, Glucose, BUN, Creatinine, CA)2022-12-31 05:05:10 Test Item Value Reference Range Interpretation Comments NA (test code = 136 mmol/L 135-145 0173852253) K (test code = 3.4 mmol/L 3.5-5.0 L 5753986698) CL (test code = 109 mmol/L 98-108 H 9042328248) CO2 TOTAL (test code = 26 mmol/L 23-31 7231516965) AGAP (test code = 1 2-16 L 8304084055) BUN (test code = 9 mg/dL 7-23 0806164588) GLUCOSE (test code = 98 mg/dL 70-110 2343526508) CREATININE (test code = 0.46 mg/dL 0.50-1.04 L 5887608404) CALCIUM (test code = 7.3 mg/dL 8.6-10.6 L 9948041764) eGFR (test code = 148.3 mL/min/1.73m2 6661026437) CIERA (test code = CIERA) Association of [...] tests). Lab Interpretation Abnormal (test code = 02321-3) [facility] [id number] 05:05:10 Test Item Value Reference Range Interpretation Comments MAGNESIUM (test code = 5646621915) 1.5 mg/dL 1.7-2.4 L Lab Interpretation (test code = Abnormal 62156-2) [facility] Center[facility] [id number] 05:05:10 Test Item Value Reference Range Interpretation Comments PHOSPHORUS (test code = 4088456920) 2.2 mg/dL 2.5-5.0 L Lab Interpretation (test code = Abnormal 59547-5) [facility] Metabolic Panel (NA, K, CL, CO2, Glucose, BUN, Creatinine, CA)2022-12-31 05:05:10 Test Item Value Reference Range Interpretation Comments NA (test code = 136 mmol/L 135-145 3888021157) K (test code = 3.4 mmol/L 3.5-5.0 L 3934461191) CL (test code = 109 mmol/L 98-108 H 1921997810) CO2 TOTAL (test code = 26 mmol/L 23-31 5742154306) AGAP (test code = 1 2-16 L 5329979158) BUN (test code = 9 mg/dL 7-23 7383739987) GLUCOSE (test code = 98 mg/dL 70-110 0669331921) CREATININE (test code = 0.46 mg/dL 0.50-1.04 L 8133368649) CALCIUM (test code = 7.3 mg/dL 8.6-10.6 L 1319622589) eGFR (test code = 148.3 mL/min/1.73m2 2234189015) CIERA (test code = CIERA) Association of [...] tests). Lab Interpretation Abnormal (test code = 04622-1) [facility] Center[facility] [id number] 05:05:10 Test Item Value Reference Range Interpretation Comments MAGNESIUM (test code = 9140683824) 1.5 mg/dL 1.7-2.4 L Lab Interpretation (test code = Abnormal 42783-6) [facility] Center[facility] [id number] 05:05:10 Test Item Value Reference Range Interpretation Comments PHOSPHORUS (test code = 9659569006) 2.2 mg/dL 2.5-5.0 L Lab Interpretation (test code = Abnormal 81837-3) [facility] CenterProthrombin Time (PT) / [id number] 04:52:12 Test Item Value Reference Range Interpretation Comments PROTIME PATIENT (test 14.6 See_Comment H [Auto mated message] code = 5964-2) The system [employer] generated this result transmitted ref erence range: 10.1 - 1 2.6 Seconds. The reference range was not used to int erpret this result as normal/abnormal . INR (test code = 6301-6) 1.3 Nor mal INR <1.1; Warfarin Therap eutic range 2.0 to 3. 0 or 2.5 to 3.5, dep ending upon the indica tions. Lab Interpretation (test Abnormal code = 93629-4) [facility] CenteraPTT2023-[facility]-20 04:52:12 Test Item Value Reference Range Interpretation Comments APTT Patient (test code = 27 See_Comment [ Automated message] 3173-2) The system [employer] generated this result transmitted ref erence range: 26 - 36 Seconds. The re ference range was not u sed to interpret this result as normal/abnor mal. Lab Interpretation (test Normal code = 54816-3) [facility] CenterProthrombin Time (PT) / [id number] 04:52:12 Test Item Value Reference Range Interpretation Comments PROTIME PATIENT (test 14.6 See_Comment H [Auto mated message] code = 5964-2) The system wh ich generated this result transmitted ref erence range: 10.1 - 1 2.6 Seconds. The reference range was not used to int erpret this result as normal/abnormal . INR (test code = 6301-6) 1.3 Nor mal INR <1.1; Warfarin Therap eutic range 2.0 to 3. 0 or 2.5 to 3.5, dep ending upon the indica tions. Lab Interpretation (test Abnormal code = 64742-4) [facility]eraPTT20[facility] 04:52:12 Test Item Value Reference Range Interpretation Comments APTT Patient (test code = 27 See_Comment [ Automated message] 3173-2) The system [employer] generated this result transmitted ref erence range: 26 - 36 Seconds. The re ference range was not u sed to interpret this result as normal/abnor mal. Lab Interpretation (test Normal code = 55445-3) [facility] Center[facility] with [id number] 04:43:10 Test Item Value Reference Range Interpretation Comments WBC (test code = 7.56 See_Comment [Automated 6690-2) message] The sy stem which generated this result transmitted reference range : 4.30 - 11.10 10*3/?L. The reference range was not used to interpret this result as normal/abnormal . RBC (test code = 2.67 See_Comment L [Automated 119-8) message] The sy stem which generated this [...] RDW-SD (test code = 45.2 fL 39.0-49.9 66980-0) RDW-CV (test code = 15.6 % 12.0-15.5 H 788-0) PLT (test code = 389 See_Comment H [Automated 777-3) message] The sy stem which generated this result transmitted reference range : 166 - 358 10*3/ ?L. The reference r susana was not used to interpret this result as normal/abnormal . MPV (test code = 10.4 fL 9.5-12.9 09000-8) NRBC/100 WBC (test 0.0 See_Comment [Automat ed code = 5609312840) message] The system which generated this result transmitted reference range : 0.0 - 10.0 /100 WBCs. The refer ence range was not u sed to interpret th is result as normal/abnormal . NRBC x10^3 (test code See_Comment [Auto mated = 8368985343) message] The s ystem which generated this result transmitted reference range : 10*3/?L. The reference range was not used to interpret this result as normal/abnormal . GRAN MAT (NEUT) % 71.0 % (test code = 770-8) IMM GRAN % (test code 0.30 % = 7958563183) LYMPH % (test code = 23.3 % 736-9) MONO % (test code = 4.6 % 5905-5) EOS % (test code = 0.4 % 713-8) BASO % (test code = 0.4 % 706-2) GRAN MAT x10^3(ANC) 5.37 10*3/uL 1.88-7.09 (test code = 3734054380) IMM GRAN x10^3 (test 0.00-0.06 code = 4680056168) LYMPH x10^3 (test code 1.76 10*3/uL 1.32-3.29 = 731-0) MONO x10^3 (test code 0.35 10*3/uL 0.33-0.92 = 742-7) EOS x10^3 (test code = 0.03 10*3/uL 0.03-0.39 711-2) BASO x10^3 (test code 0.03 10*3/uL 0.01-0.07 = 704-7) Lab Interpretation Abnormal (test code = 76826-3) [facility] with Fdwdjhqgsxyw7123-81-22 04:43:10 Test Item Value Reference Range Interpretation [...] RDW-SD (test code = 45.2 fL 39.0-49.9 92086-5) RDW-CV (test code = 15.6 % 12.0-15.5 H 788-0) PLT (test code = 389 See_Comment H [Automated 777-3) message] The sy stem which generated this result transmitted reference range : 166 - 358 10*3/ ?L. The reference r susana was not used to interpret this result as normal/abnormal . MPV (test code = 10.4 fL 9.5-12.9 39480-2) NRBC/100 WBC (test 0.0 See_Comment [Automat ed code = 8861387486) message] The system which generated this result transmitted reference range : 0.0 - 10.0 /100 WBCs. The refer ence range was not u sed to interpret th is result as normal/abnormal . NRBC x10^3 (test code See_Comment [Auto mated = 1304149093) message] The s ystem which generated this result transmitted reference range : 10*3/?L. The reference range was not used to interpret this result as normal/abnormal . GRAN MAT (NEUT) % 71.0 % (test code = 770-8) IMM GRAN % (test code 0.30 % = 4742660503) LYMPH % (test code = 23.3 % 736-9) MONO % (test code = 4.6 % 5905-5) EOS % (test code = 0.4 % 713-8) BASO % (test code = 0.4 % 706-2) GRAN MAT x10^3(ANC) 5.37 10*3/uL 1.88-7.09 (test code = 3862037874) IMM GRAN x10^3 (test 0.00-0.06 code = 2355972620) LYMPH x10^3 (test code 1.76 10*3/uL 1.32-3.29 = 731-0) MONO x10^3 (test code 0.35 10*3/uL 0.33-0.92 = 742-7) EOS x10^3 (test code = 0.03 10*3/uL 0.03-0.39 711-2) BASO x10^3 (test code 0.03 10*3/uL 0.01-0.07 = 704-7) Lab Interpretation Abnormal (test code = 88356-5) [facility] [id number] 01:02:00 Test Item Value Reference Range Interpretation Comments ABO & RH (test code = 20) O Negative IAT (test code = 1185) Negative [facility] [id number] 01:02:00 Test Item Value Reference Range Interpretation Comments ABO & RH (test code = 20) O Negative IAT (test code = 1185) Negative [facility] CenterPO[facility] [id number] 00:56:00 Test Item Value Reference Range Interpretation Comments POCT PREG (test code = 1605) Negative On board controls acceptable with Present C Line (test code = 3574) POCT PREG LOT # (test code = 3575) [id number] POCT PREG TEST DATE (test 03/13/24 code = 3576) Lab Interpretation (test code = Normal 89112-8) [facility] CenterPO[facility] [id number] 00:56:00 Test Item Value Reference Range Interpretation Comments POCT PREG (test code = 1605) Negative On board controls acceptable with Present C Line (test code = 3574) POCT PREG LOT # (test code = 3575) [id number] POCT PREG TEST DATE (test 03/13/24 code = 3576) Lab Interpretation (test code = Normal 20394-8) [facility] CenterLIPASE2023-03-20 00:31:59 Test Item Value Reference Range Interpretation Comments LIPASE (test code = 9754356535) 51 U/L 0-220 Lab Interpretation (test code = Normal 00946-1) [facility] Center[facility]20[facility] 00:31:59 Test Item Value Reference Range Interpretation Comments LIPASE (test code = 8262236992) 51 U/L 0-220 Lab Interpretation (test code = Normal 20787-5) [facility]. METABOLIC PANEL ([id number])2022-12-31 00:10:38 Test Item Value Reference Range Interpretation Comments NA (test code = 136 mmol/L 135-145 4486807097) K (test code = 4.2 mmol/L 3.5-5.0 4609008055) CL (test code = 102 mmol/L 98-108 2373062828) CO2 TOTAL (test code = 23 mmol/L 23-31 7245644024) AGAP (test code = 11 2-16 3532755701) BUN (test code = 13 mg/dL 7-23 6393138405) GLUCOSE (test code = 111 mg/dL 70-110 H 3776643446) CREATININE (test code = 0.51 mg/dL 0.50-1.04 1811417460) TOTAL BILI (test code = 0.4 mg/dL 0.1-1.0 4546163884) CALCIUM (test code = 9.0 mg/dL 8.6-10.6 5066614439) T PROTEIN (test code = 6.8 g/dL 6.3-8.2 7821566694) ALBUMIN (test code = 3.8 g/dL 3.5-5.0 2997765596) ALK PHOS (test code = 100 U/L 34-122 3962883830) ALTv (test code = 12 U/L 5-35 1742-6) AST(SGOT) (test code = 17 U/L 13-40 3065744496) eGFR (test code = 131.6 mL/min/1.73m2 7652296974) CIERA (test code = CIERA) Association of [...] tests). Lab Interpretation Abnormal (test code = 53643-9) [facility]UM2023-[facility]-20 00:10:38 Test Item Value Reference Range Interpretation Comments MAGNESIUM (test code = 6758863733) 1.5 mg/dL 1.7-2.4 L Lab Interpretation (test code = Abnormal 95939-8) [facility] CenterCOM. METABOLIC PANEL (46543)2022-12-31 00:10:38 Test Item Value Reference Range Interpretation Comments NA (test code = 136 mmol/L 135-145 9223318484) K (test code = 4.2 mmol/L 3.5-5.0 9692574997) CL (test code = 102 mmol/L 98-108 8233753085) CO2 TOTAL (test code = 23 mmol/L 23-31 7090187421) AGAP (test code = 11 2-16 8514217859) BUN (test code = 13 mg/dL 7-23 9051968966) GLUCOSE (test code = 111 mg/dL 70-110 H 6666875174) CREATININE (test code = 0.51 mg/dL 0.50-1.04 4621505256) TOTAL BILI (test code = 0.4 mg/dL 0.1-1.0 5653462382) CALCIUM (test code = 9.0 mg/dL 8.6-10.6 0246127941) T PROTEIN (test code = 6.8 g/dL 6.3-8.2 4850725788) ALBUMIN (test code = 3.8 g/dL 3.5-5.0 3684846035) ALK PHOS (test code = 100 U/L 34-122 3934813761) ALTv (test code = 12 U/L 5-35 1742-6) AST(SGOT) (test code = 17 U/L 13-40 1150856069) eGFR (test code = 131.6 mL/min/1.73m2 0246728899) CIERA (test code = CIERA) Association of [...] tests). Lab Interpretation Abnormal (test code = 60533-3) [facility] 00:10:38 Test Item Value Reference Range Interpretation Comments MAGNESIUM (test code = 3017898449) 1.5 mg/dL 1.7-2.4 L Lab Interpretation (test code = Abnormal 02626-7) [facility] WITH [id number] 23:56:38 Test Item Value Reference Range Interpretation [...] RDW-SD (test code = 46.9 fL 39.0-49.9 62620-8) RDW-CV (test code = 16.4 % 12.0-15.5 H 788-0) PLT (test code = 505 See_Comment H [Automated 777-3) message] The sy stem which generated this result transmitted reference range : 166 - 358 10*3/ ?L. The reference r susana was not used to interpret this result as normal/abnormal . MPV (test code = 10.7 fL 9.5-12.9 18426-6) NRBC/100 WBC (test 0.0 See_Comment [Automat ed code = 4295588264) message] The system which generated this result transmitted reference range : 0.0 - 10.0 /100 WBCs. The refer ence range was not u sed to interpret th is result as normal/abnormal . NRBC x10^3 (test code See_Comment [Auto mated = 8755080093) message] The s ystem which generated this result transmitted reference range : 10*3/?L. The reference range was not used to interpret this result as normal/abnormal . GRAN MAT (NEUT) % 77.8 % (test code = 770-8) IMM GRAN % (test code 0.40 % = 2856921914) LYMPH % (test code = 16.8 % 736-9) MONO % (test code = 4.0 % 5905-5) EOS % (test code = 0.5 % 713-8) BASO % (test code = 0.5 % 706-2) GRAN MAT x10^3(ANC) 8.18 10*3/uL 1.88-7.09 H (test code = 9465410023) IMM GRAN x10^3 (test 0.04 10*3/uL 0.00-0.06 code = 5615637271) LYMPH x10^3 (test code 1.76 10*3/uL 1.32-3.29 = 731-0) MONO x10^3 (test code 0.42 10*3/uL 0.33-0.92 = 742-7) EOS x10^3 (test code = 0.05 10*3/uL 0.03-0.39 711-2) BASO x10^3 (test code 0.05 10*3/uL 0.01-0.07 = 704-7) Lab Interpretation Abnormal (test code = 66279-7) [facility] WITH [id number] 23:56:38 Test Item Value Reference Range Interpretation [...] RDW-SD (test code = 46.9 fL 39.0-49.9 56989-1) RDW-CV (test code = 16.4 % 12.0-15.5 H 788-0) PLT (test code = 505 See_Comment H [Automated 777-3) message] The sy stem which generated this result transmitted reference range : 166 - 358 10*3/ ?L. The reference r susana was not used to interpret this result as normal/abnormal . MPV (test code = 10.7 fL 9.5-12.9 69190-6) NRBC/100 WBC (test 0.0 See_Comment [Automat ed code = 9639648828) message] The system which generated this result transmitted reference range : 0.0 - 10.0 /100 WBCs. The refer ence range was not u sed to interpret th is result as normal/abnormal . NRBC x10^3 (test code See_Comment [Auto mated = 9375021479) message] The s ystem which generated this result transmitted reference range : 10*3/?L. The reference range was not used to interpret this result as normal/abnormal . GRAN MAT (NEUT) % 77.8 % (test code = 770-8) IMM GRAN % (test code 0.40 % = 1263393326) LYMPH % (test code = 16.8 % 736-9) MONO % (test code = 4.0 % 5905-5) EOS % (test code = 0.5 % 713-8) BASO % (test code = 0.5 % 706-2) GRAN MAT x10^3(ANC) 8.18 10*3/uL 1.88-7.09 H (test code = 1788579513) IMM GRAN x10^3 (test 0.04 10*3/uL 0.00-0.06 code = 2685082138) LYMPH x10^3 (test code 1.76 10*3/uL 1.32-3.29 = 731-0) MONO x10^3 (test code 0.42 10*3/uL 0.33-0.92 = 742-7) EOS x10^3 (test code = 0.05 10*3/uL 0.03-0.39 711-2) BASO x10^3 (test code 0.05 10*3/uL 0.01-0.07 = 704-7) Lab Interpretation Abnormal (test code = 78704-0) [facility] WITH [id number] 21:11:40 Test Item Value Reference Range Interpretation Comments WBC (test code = See_Comment [Automated 0290-2) message] The sy stem which generated this result transmitted reference range : 4.30 - 11.10 10*3/?L. The reference range was not used to interpret this result as normal/abnormal . RBC (test code = See_Comment L [Automated 169-8) message] The sy stem which generated this [...] (test code = 77.1 fL 39-49.9 H 48676-9) RDW-CV (test code = 24.8 % 12-15.5 H 788-0) PLT (test code = See_Comment [Automated 777-3) message] The sy stem which generated this result transmitted reference range : 166 - 358 10*3/ ?L. The reference r susana was not used to interpret this result as normal/abnormal . MPV (test code = 10.0 fL 9.5-12.9 17504-7) NRBC/100 WBC (test See_Comment [Automat ed code = 4030261345) message] The system which generated this result transmitted reference range : 0.0 - 10.0 /100 WBCs. The refer ence range was not u sed to interpret th is result as normal/abnormal . NRBC x10^3 (test code See_Comment [Auto mated = 1477881226) message] The s ystem which generated this result transmitted reference range : 10*3/?L. The reference range was not used to interpret this result as normal/abnormal . GRAN MAT (NEUT) % 68.5 % (test code = 770-8) IMM GRAN % (test code 0.40 % = 6065708930) LYMPH % (test code = 21.3 % 736-9) MONO % (test code = 6.0 % 5905-5) EOS % (test code = 2.9 % 713-8) BASO % (test code = 0.9 % 706-2) GRAN MAT x10^3(ANC) 4.67 10*3/uL 1.88-7.09 (test code = 2733049613) IMM GRAN x10^3 (test 0.03 10*3/uL 0-0.06 code = 8146444291) LYMPH x10^3 (test code 1.45 10*3/uL 1.32-3.29 = 731-0) MONO x10^3 (test code 0.41 10*3/uL 0.33-0.92 = 742-7) EOS x10^3 (test code = 0.20 10*3/uL 0.03-0.39 711-2) BASO x10^3 (test code 0.06 10*3/uL 0.01-0.07 = 704-7) Lab Interpretation Abnormal (test code = 16104-0) [facility] Notes Date/Time Note Provider Source 2023-05-30 Formatting of this note is different austen olmedo the original. Cece Dawson LVN [facility] 08:34:12-00:00 Images from the original note were not included. Requested Renewals doxepin 50 mg capsule Sig: Take 1 capsule by mouth at bedtime. Disp: 45 capsule Refills: 0 Start: 05/28/2023 Class: eRX For: Anxiety, Excoriation (skin-picking) disord er Last ordered: 6 months ago (11/30/2022) by JAREN Vance Psychiatry: Antidepressants - Heterocyc lics (TCAs) Failed 05/28/2023 02:32 PM Protocol Details Manual Review: Verify n o changes in dose in the last 3 months Valid encounter within last 12 months To be filled at: [facility] #[id number] [address] [facility] Recent Visits Date Type Provider Dept 11/30/22 Office Visit Tucker Arambula FNP [facility] 07/27/22 Office Visit Tucker Arambula FNP [facility] 06/01/22 Office Visit Dorota Sawyer MD [facility] Showing recent visits within past 540 days with a meds authorizing provider and meeting all other requirements Future Appointments Date Type Provider Dept 06/03/23 Appointment Tucker Arambula FNP [facility] Showing future appointments within next 150 days with a meds authorizing provider and meeting all other requirements "
[2023-06-05] MEDS ORDERED: CEFEPIME 2 GM VIAL ONE (09:03)
[2023-06-05] MEDS ORDERED: NA CHLORIDE 0.9% 1,000 ML ONE (09:03)
[2023-06-05] MEDS ORDERED: NA CHLORIDE 0.9% 100 ML ONE (09:03)
[2023-06-05] MEDS ORDERED: VANCOMYCIN 1 GM/VIAL ONE (09:03)
[2023-06-05] MEDS ORDERED: NA CHLORIDE 0.9% 250 ML ONE (09:03)
[2023-06-05 09:19] LABS: Absolute Lymphocytes (CBC) 0.9 K/uL (0.7-4.9); Hematocrit 30.4 % (36.0-45.0); Lymphocytes % 5.8 % (15.3-44.8); MCV 77.2 fL (80-100); MPV 8.2 fL (7.6-11.3); Platelets 414 thou/uL (152-406); RBC Red Blood Cell Count 3.93 M/uL (3.86-4.86)
[2023-06-05 09:23] LABS: Protime INR 1.56
[2023-06-05 09:37] LABS: Albumin 2.7 g/dL (3.4-5.0); Bilirubin Total 0.4 mg/dL (0.2-1.0); Protein, Total 7.2 g/dL (6.4-8.2)
[2023-06-05 09:40] LABS: Potassium 3.5 mEq/L (3.5-5.1)
--- NOTE | 2023-06-05 09:56 | RAD REPORT ---
EXAM DESCRIPTION: Martin Single View06/05/2023 9:45 am CLINICAL HISTORY: Shortness of breath COMPARISON: February 2023 FINDINGS: Moderate bilateral alveolar opacities within the lungs. Heart is normal size IMPRESSION: Moderate bilateral alveolar opacities within the lungs probably pneumonia. Pulmonary masha ma can also have this appearance
[2023-06-05 10:15] LABS: Arterial Blood Carboxyhemoglob 2.6 % (0-1.5); Blood O2 Saturation 96.2 % (92-98.5)
--- NOTE | 2023-06-05 10:19 | ER ---
Nurse's Notes [facility] [place] Name: Ceci Ward Age: 42 yrs Sex: Female : 1980 Arrival Date: 06/05/2023 Time: 08:39 Bed 4 Private MD: Diagnosis: Multifocal pneumonia;Hypoxic respiratory failure;Sepsis Presentation: 06/05 08:42 Chief complaint: EMS states: Toned out for SOB, 70% on RA, improved to 90s on NRB. HR hb 130s, R 37, AOx4. Coronavirus screen: Client presents with at least one sign or symptom that may indicate coronavirus-19. Provider contacted for isolation considerations. Ebola Screen: No symptoms or risks identified at this time. Initial Sepsis Screen: Does the patient meet any 2 criteria? Yes Does the patient have a suspected source of infection? No. Patient's initial sepsis screen is negative. Risk Assessment: Do you want to hurt yourself or someone else? Patient reports no desire to harm self or others. Onset of symptoms was June 05, 2023. 08:42 Method Of Arrival: EMS: [facility] 08:42 Acuity: JES 2 hb Triage Assessment: 08:45 General: Appears distressed, ill, Behavior is calm, cooperative. Pain: Denies pain. hb EENT: No signs and/or symptoms were reported regarding the EENT system. Neuro: Level of Consciousness is obeys commands, lethargic, Oriented to person, place, time, situation. Cardiovascular: Patient's skin is warm and dry. Respiratory: Respiratory effort is unlabored, Respiratory pattern is tachypnea. GI: No signs and/or symptoms were reported involving the gastrointestinal system. : No signs and/or symptoms were reported regarding the genitourinary system. Derm: Skin is pink, warm \T\ dry. Musculoskeletal: No signs and/or symptoms reported regarding the musculoskeletal system. Historical: - Allergies: 08:44 propoxyphene; hb 08:44 acetaminophen; hb - Home Meds: 08:44 Protonix Oral [Active]; hb - Immunization history:: Adult Immunizations up to date. - Social history:: Smoking status: Patient reports the use of cigarette tobacco products. - Family history:: not pertinent. Screenin:46 [facility] ED Fall Risk Assessment (Adult) Score/Fall Risk Level 3 or more points = High hb Risk Oriented to surroundings, Maintained a safe environment, Educated pt \T\ family on fall prevention, incl call for assistance when getting out of bed. Abuse screen: Denies threats or abuse. Denies injuries from another. Nutritional screening: No deficits noted. Tuberculosis screening: No symptoms or risk factors identified. Assessment: 08:40 Reassessment: RT at bedside for BiPAP and ABG. hb 08:45 General: See triage assessment. hb 09:25 Reassessment: Pt lethargic, remains on BiPAP 18/5, R16, FiO2 40%. hb 12:02 Reassessment: No changes from previously documented assessment. Patient and/or family hb updated on plan of care and expected duration. Pain level reassessed. 13:47 Reassessment: No changes from previously documented assessment. Patient and/or family hb updated on plan of care and expected duration. Pain level reassessed. Vital Signs: 08:42 BP 111 / 83; Pulse 124; Resp 29; Temp 98.2; Pulse Ox 91% on Non-rebreather mask; Weight hb 49.9 kg; Height 5 ft. 4 in. ; Pain 0/10; 09:26 BP 105 / 75; Pulse 116; Resp 19; Pulse Ox 97% on BiPAP; hb 11:00 BP 113 / 73; Pulse 126; Resp 26; Pulse Ox 89% on BiPAP; hb 11:30 BP 93 / 65; Pulse 126; Resp 27; Pulse Ox 94% on BiPAP; hb 12:00 BP 93 / 65; Pulse 117; Resp 24; Pulse Ox 96% on BiPAP; hb 12:30 BP 104 / 70; Pulse 121; Resp 21; Pulse Ox 97% on BiPAP; hb 13:00 BP 111 / 80; Pulse 126; Resp 31; Pulse Ox 97% on BiPAP; hb 13:30 BP 99 / 74; Pulse 124; Resp 23; Temp 98.1(A); Pulse Ox 99% on BiPAP; hb 08:42 Body Mass Index 18.88 (49.90 kg, 162.56 cm) hb 08:42 Pain Scale: Adult hb 09:26 18/5, R16, FiO2 40% hb ED Course: 08:40 Patient arrived in ED. sb4 08:40 Fidel Apple MD is Attending Physician. rt 08:44 Triage completed. hb 08:45 Arm band placed on. hb 08:46 Patient has correct armband on for positive identification. Bed in low position. Call hb light in reach. Provided Education on: . 09:05 Inserted saline lock: 22 gauge in right antecubital area, using aseptic technique. rs5 Blood collected. 09:12 Shira Hoffman, RN is Primary Nurse. hb 09:12 Protime (+inr) Sent. hb 09:12 Lactate w/ 2H reflex if indic. Sent. hb 09:12 CMP Sent. hb 09:12 Ptt, Activated Sent. hb 09:12 ABG Sent. hb 09:13 CBC with Diff Sent. hb 09:45 X-ray completed. Portable x-ray completed in exam room. Patient tolerated procedure mh1 well. 09:47 Chest Single View XRAY In Process Unspecified. EDMS 10:18 Benjamin Engle is Hospitalizing Provider. rt 12:45 SARS RAPID Sent. hb 15:56 No provider procedures requiring assistance completed. Patient admitted, IV remains in hb place. Administered Medications: 09:12 Drug: NS 0.9% IV 1000 ml Route: IV; Rate: 1 bolus; Site: left forearm; hb 10:02 Follow up: Response: No adverse reaction; IV Status: Completed infusion; IV Intake: hb 1000ml 09:35 Drug: Cefepime IVPB 2 grams Route: IVPB; Rate: 200 ml/hr; Infused Over: 30 mins; Site: hb right antecubital; 10:04 Follow up: Response: No adverse reaction; IV Status: Completed infusion; IV Intake: hb 100ml 10:06 Drug: vancoMYCIN IVPB 1 grams Route: IVPB; Infused Over: 2 hrs; Site: right antecubital;hb 12:08 Follow up: IV Status: Completed infusion rs5 Medication: 08:46 VIS not applicable for this client. hb Intake: 10:02 IV: 1000ml; Total: 1000ml. hb 10:04 IV: 100ml; Total: 1100ml. hb Outcome: 10:18 Decision to Hospitalize by Provider. rt 15:56 Admitted to ICU accompanied by nurse, room 2, with oxygen. hb 15:56 critical 15:56 Instructed on the need for admit, Demonstrated understanding of instructions. 15:57 Patient left the ED. hb Signatures: Dispatcher [employer] EDWA Ciara Slater [facility] Shira Hoffman, RUBA RN hb Amber Nair PA-C PA-C sb4 Fidel Apple MD MD rt Andrea Coronado RN RN rs5 Corrections: (The following items were deleted from the chart) 09:25 Reassessment: Patient appears in no apparent distress at this time. Patient hb and/or family updated on plan of care and expected duration. Pain level reassessed. Patient is alert, oriented x 3, equal unlabored respirations, skin warm/dry/pink. hb 09:25 Reassessment: Patient appears in no apparent distress at this time. No changes hb from previously documented assessment. Patient and/or family updated on plan of care and expected duration. Pain level reassessed. hb 12:02 12:00 BP 93 / 65; Pulse 117bpm; Resp 21bpm; Pulse Ox 96% BiPAP; hb hb
--- NOTE | 2023-06-05 10:19 | EDPHYS ---
Physician Documentation [facility] Name: Ceci Ward Age: 42 yrs Sex: Female : 1980 Arrival Date: 06/05/2023 Time: 08:39 Bed 4 Private MD: ED Physician Fidel Apple HPI: 06/05 10:18 This 42 yrs old Female presents to ER via EMS with complaints of Shortness Of Breath. rt 10:18 Patient presents to the ED with dyspnea starting yesterday. The patient reportedly had rt a room air saturation of 50%. Oxygenation improving on nonrebreather, patient symptomatically improved with the patient denies other acute complaints at this time. Symptoms are severe in severity, no other aggravating alleviating factors. Historical: - Allergies: 08:44 propoxyphene; hb 08:44 acetaminophen; hb - Home Meds: 08:44 Protonix Oral [Active]; hb - Immunization history:: Adult Immunizations up to date. - Social history:: Smoking status: Patient reports the use of cigarette tobacco products. - Family history:: not pertinent. ROS: 10:18 Constitutional: Negative for fever, chills, and weight loss, Cardiovascular: Negative rt for chest pain, palpitations, and edema, Abdomen/GI: Negative for abdominal pain, nausea, vomiting, diarrhea, and constipation, MS/Extremity: Negative for injury and deformity, Skin: Negative for injury, rash, and discoloration, Neuro: Negative for headache, weakness, numbness, tingling, and seizure, Psych: Negative for depression, anxiety, suicide ideation, homicidal ideation, and hallucinations. 10:18 Respiratory: Positive for shortness of breath, Negative for cough. Exam: 10:18 Head/Face: Normocephalic, atraumatic. Chest/axilla: Normal chest wall appearance and rt motion. Nontender with no deformity. No lesions are appreciated. Cardiovascular: Regular rate and rhythm with a normal S1 and S2. No gallops, murmurs, or rubs. Normal PMI, no JVD. No pulse deficits. MS/ Extremity: Pulses equal, no cyanosis. Neurovascular intact. Full, normal range of motion. Neuro: Awake and alert, GCS 15, oriented to person, place, time, and situation. Cranial nerves II-XII grossly intact. Motor strength 5/5 in all extremities. Sensory grossly intact. Cerebellar exam normal. Normal gait. 10:18 Constitutional: The patient appears frail, obviously ill, unkempt. 10:18 ECG was reviewed by the Attending Physician. 10:18 Respiratory: Coarse breath sounds diffusely, moderate respiratory distress. 10:18 Skin: Multiple skin lesions noted. Vital Signs: 08:42 BP 111 / 83; Pulse 124; Resp 29; Temp 98.2; Pulse Ox 91% on Non-rebreather mask; Weight hb 49.9 kg; Height 5 ft. 4 in. ; Pain 0/10; 09:26 BP 105 / 75; Pulse 116; Resp 19; Pulse Ox 97% on BiPAP; hb 11:00 BP 113 / 73; Pulse 126; Resp 26; Pulse Ox 89% on BiPAP; hb 11:30 BP 93 / 65; Pulse 126; Resp 27; Pulse Ox 94% on BiPAP; hb 12:00 BP 93 / 65; Pulse 117; Resp 24; Pulse Ox 96% on BiPAP; hb 12:30 BP 104 / 70; Pulse 121; Resp 21; Pulse Ox 97% on BiPAP; hb 13:00 BP 111 / 80; Pulse 126; Resp 31; Pulse Ox 97% on BiPAP; hb 13:30 BP 99 / 74; Pulse 124; Resp 23; Temp 98.1(A); Pulse Ox 99% on BiPAP; hb 08:42 Body Mass Index 18.88 (49.90 kg, 162.56 cm) hb 08:42 Pain Scale: Adult hb 09:26 18/5, R16, FiO2 40% hb MDM: 08:40 Patient medically screened. rt 10:18 Differential diagnosis: Pneumonia, pneumothorax, pulmonary embolism. Antibiotic rt administration: Data reviewed: vital signs, nurses notes, lab test result(s), EKG, radiologic studies. Consideration of Admission/Observation Patient was admitted/placed on observation. Management of patient was discussed with the following: Hospitalist: Agrees to admit. I considered the following discharge prescriptions or medication management in the emergency department Medications were administered in the Emergency Department. See MAR. Independent interpretation of the following test(s) in the Emergency Department X-Ray: My interpretation is Bilateral consolidations interpretation of the x-ray images. Counseling: I had a detailed discussion with the patient and/or guardian regarding the historical points, exam findings, and any diagnostic results supporting the discharge/admit diagnosis, lab results, radiology results, the need for further work-up and treatment in the hospital. Response to treatment: the patient's symptoms have mildly improved after treatment. 06/05 08:48 Order name: Blood Culture Adult (2) rt 06/05 08:48 Order name: CBC with Diff; Complete Time: 13:41 rt 06/05 08:48 Order name: CMP; Complete Time: 09:57 rt 06/05 08:48 Order name: Lactate w/ 2H reflex if indic.; Complete Time: 09:57 rt 06/05 08:48 Order name: Protime (+inr); Complete Time: 09:57 rt 06/05 08:48 Order name: Ptt, Activated; Complete Time: 09:57 rt 06/05 08:48 Order name: Urinalysis w/ reflexes rt 06/05 08:48 Order name: ABG; Complete Time: 13:41 rt 06/05 10:45 Order name: Manual Differential; Complete Time: 13:41 EDMS 06/05 11:46 Order name: NT PRO-BNP EDAL 06/05 11:49 Order name: Magnesium EDAL 06/05 11:49 Order name: Phosphorus EDMS 06/05 11:49 Order name: T4 Free EDAL 06/05 11:49 Order name: Thyroid Stimulating Hormone EDAL 06/05 11:49 Order name: Urinalysis w/ reflexes EDMS 06/05 11:49 Order name: Basic Metabolic Panel EDMS 06/05 11:49 Order name: Basic Metabolic Panel EDAL 06/05 11:49 Order name: CBC with Automated Diff EDMS 06/05 11:49 Order name: CBC with Automated Diff EDMS 06/05 11:49 Order name: Lipid Profile EDAL 06/05 11:49 Order name: Lipid Profile EDMS 06/05 12:15 Order name: SARS RAPID bd 06/05 12:58 Order name: SARS-COV-2 Antigen Rapid; Complete Time: 13:41 EDMS 06/05 08:48 Order name: Chest Single View XRAY; Complete Time: 09:57 rt 06/05 11:46 Order name: Thorax Wo Con; Complete Time: 13:41 EDMS 06/05 08:48 Order name: EKG; Complete Time: 08:49 rt 06/05 11:49 Order name: 60g Consistent Carbohydrate (ADA 1800/2000) EDMS 06/05 08:48 Order name: Accucheck; Complete Time: 09:13 rt 06/05 08:48 Order name: Cardiac monitoring; Complete Time: 09:11 rt 06/05 08:48 Order name: EKG - Nurse/Tech; Complete Time: 09:11 rt 06/05 08:48 Order name: IV Saline Lock - Large Bore; Complete Time: 09:12 rt 06/05 08:48 Order name: Labs collected and sent; Complete Time: 09: rt 06/05 08:48 Order name: O2 Per Protocol; Complete Time: 09:11 rt 06/05 08:48 Order name: O2 Sat Monitoring; Complete Time: 09: rt 06/05 08:48 Order name: Vital Signs; Complete Time: :11 rt EC:18 Rate is 120 beats/min. Rhythm is regular, Sinus tachycardia with No ectopy. QRS [place] is rt Normal. MN interval is normal. QRS interval is normal. QT interval is normal. No Q waves. T waves are Normal. No ST changes noted. Interpreted by me. Administered Medications: 09:12 Drug: NS 0.9% IV 1000 ml Route: IV; Rate: 1 bolus; Site: left forearm; hb 10:02 Follow up: Response: No adverse reaction; IV Status: Completed infusion; IV Intake: hb 1000ml 09:35 Drug: Cefepime IVPB 2 grams Route: IVPB; Rate: 200 ml/hr; Infused Over: 30 mins; Site: hb right antecubital; 10:04 Follow up: Response: No adverse reaction; IV Status: Completed infusion; IV Intake: hb 100ml 10:06 Drug: vancoMYCIN IVPB 1 grams Route: IVPB; Infused Over: 2 hrs; Site: right antecubital;hb 12:08 Follow up: IV Status: Completed infusion rs5 Disposition: 10:24 Critical Care:. rt Disposition Summary: 06/05/23 10:18 Hospitalization Ordered Hospitalization Status: Inpatient Admission rt Provider: Benjamin Engle rt Location: Intensive Care Unit rt Condition: Serious rt Problem: new rt Symptoms: have improved rt Bed/Room Type: Standard rt Room Assignment: 1-(06/05/23 14:42) dw Diagnosis - Multifocal pneumonia rt - Hypoxic respiratory failure rt - Sepsis rt Forms: - Medication Reconciliation Form rt - SBAR form rt - Leadership Thank You Letter rt Critical care time excluding procedures: 10:24 Critical care time: Bedside Care: 30 minutes, Consultation: 5 minutes. Total time: 35 rt minutes Signatures: Dispatcher [employer] Patricia Xiong RN RN dw Shira Hoffman RN RN hb [place], Ryan, MD MD rt Andrea Coronado RN rs5 Corrections: (The following items were deleted from the chart) 14:42 10:18 rt facundo
[2023-06-05 10:45] LABS: Blood Morphology Comment NOT SEEN (NOT SEEN); Platelet Estimate INCR
[2023-06-05] MEDS ORDERED: ACETAMINOPHEN 325 MG TABLET PO PRN (11:43)
[2023-06-05] MEDS ORDERED: ONDANSETRON 4 MG/2 ML VIAL IV PRN (11:46)
--- NOTE | 2023-06-05 12:07 | P.HP ---
Certification for Inpatient Patient admitted to: Inpatient With expected LOS: >2 Midnights Patient will require the following post-hospital care: None Practitioner: I am a practitioner with admitting privileges, knowledge of patient current condition, hospital course, and medical plan of care. Services: Services provided to patient in accordance with Admission requirements found in Title 42 Section 412.3 of the Code of Federal Regulations Patient History Date of Service: 06/05/23 Reason for admission: Shortness of breath History of Present Illness: Patient is a 42-year-old with a past medical history significant for hypertension, anxiety disorder, GERD, nicotine dependence, chronic back pain who presents with complaint of shortness of breath onset yesterday. Patient reports associated signs and symptoms of chest tightness. Patient denies any other signs and symptoms. Symptoms are aggravated or relieved by nothing. Patient called EMS who noticed that patient's O2 sat was 70% on room air. Patient was brought to the ER for medical evaluation. Allergies acetaminophen [From Darvocet-N 100] Allergy (Verified 03/15/13 14:12) Itching/Hives/Rash propoxyphene napsylate [From Darvocet-N 100] Allergy (Verified 03/15/13 14:12) Itching/Hives/Rash Home Medications: Pantoprazole [Protonix Tab*] 40 mg PO BID 03/03/23 ALPRAZolam [Xanax*] 0.5 mg PO TID PRN #30 tab 03/11/23 Albuterol Neb [Proventil 0.083% Neb Soln] 2.5 mg NEB [id number] PRN #60 amp 03/11/23 Hydrocodone 10/APAP 325 [[place] 10/325*] 1 tab PO Q6H PRN #30 tab 03/11/23 Ipratropium Neb [Atrovent*] 0.5 mg NEB [id number] #60 amp 03/11/23 Metoprolol Tartrate [Lopressor*] 25 mg PO BID 6AM 6PM #60 tab 03/11/23 - Past Medical/Surgical History -: Anxiety disorder -: Nicotine dependence -: Hypertension -: GERD -: Chronic back pain -: BTL - Family History Father -: Cancer Notes: pelvic cancer Mother -: Cancer Notes: lung cnacer, brain cancer Brother Notes: SIDS - Social History Smoking Status: Current every day smoker Counseled patient to stop smoking for: less than 10 minutes Smoking therapy provided: Yes Patient receptive to therapy: Yes Alcohol use: No CD- Drugs: No Caffeine use: No Place of Residence: Home Review of Systems General: Unremarkable Eyes: Unremarkable ENT: Unremarkable Respiratory: Shortness of Breath, Other (Chest tightness) Cardiovascular: Unremarkable Gastrointestinal: Unremarkable Genitourinary: Unremarkable Musculoskeletal: Unremarkable Integumentary: Unremarkable Neurological: Unremarkable Lymphatics: Unremarkable Physical Examination - Vital Signs Pulse: 124 Pulse Ox (%): 97 - Physical Exam General: Alert, Oriented x3, Cooperative, Mild distress HEENT: Atraumatic, PERRLA, Mucous membr. moist/pink, EOMI, Sclerae nonicteric Neck: Supple, 2+ carotid pulse no bruit, No LAD, Without JVD or thyroid abnormality Respiratory: Diminished Cardiovascular: No edema, Regular rate/rhythm, Normal S1 S2 Capillary refill: <2 Seconds Gastrointestinal: Normal bowel sounds, No tenderness Musculoskeletal: No clubbing, No tenderness Integumentary: No rashes, No significant lesion Neurological: Normal speech, Normal tone, Normal affect Lymphatics: No axilla or inguinal lymphadenopathy - Studies Laboratory Data (last 24 hrs) 06/05/23 06/05/23 06/05/23 09:05 09:05 09:05 WBC 15.80 H Hgb 9.5 L Hct 30.4 L Plt Count 414 H PT 17.2 H INR 1.56 APTT 33.2 Sodium 135 L Potassium 3.5 BUN 23 H Creatinine 0.83 Glucose 80 Total Bilirubin 0.4 AST 62 H ALT 14 Alkaline Phosphatase 99 Assessment and Plan - Plan --Acute respiratory failure with hypoxia. Likely secondary to pneumonia. [employer] Tender consulted. Continue BiPAP therapy and neb treatment with albuterol\Atrovent. We will await further recommendation from cell tender. --Pneumonia. CT imaging indicates There is extensive bilateral ground-glass lung opacities present. This pattern is nonspecific but can be seen in pneum onia, pulmonary edema or viral infection such as coronavirus infection. We will get a rapid respiratory panel to assess for viruses. Continue current treatment regimen. --GERD. Continue Protonix. --Hypertension. Patient currently hypotensive. We will hold off on BP meds. We will continue to monitor blood pressure levels. --Nicotine dependence. Patient counseled on tobacco cessation and placed on nicotine patch. --Chronic back pain. Continue current pain medication regimen. --Leukocytosis. Blood cultures pending. Continue antibiotics. --Anxiety disorder. Continue home medication. --Microcytic anemia. We will get some iron studies. H&H stable. We will continue to monitor hemoglobin and transfuse if less than 7.0. --DVT prophylaxis with Lovenox subQ. Discharge Plan: Home Plan to discharge in: Greater than 2 days - Advance Directives Does patient have a Living Will: No Does patient have a Durable POA for Healthcare: No - Code Status/Comfort Care Code Status Assessed: Yes Physician Review: Patient Assessed, Agree with Above Assessment and Plan Critical Care: No
--- NOTE | 2023-06-05 12:55 | EKG ---
Test Date: 2023-06-05 Test Time: 09:05:35 Extension Work Director: HB MEASUREMENT RESULTS: Intervals: Rate: 120 UT: 128 QRSD: 80 QT: 298 QTc: 421 [place]: P: 67 UT: 128 QRS: 48 T: 25 INTERPRETIVE STATEMENTS: Sinus tachycardia Possible Left atrial enlargement Borderline ECG Compared to ECG 03/03/2023 11:38:28 Sinus rhythm no longer present Ventricular premature complex(es) no longer present Prolonged QT interval no longer present Electronically Signed On 06-05-23 12:55:18 CDT by Duane Fernando
[2023-06-05 12:58] LABS: SARS-CoV-2 Antigen Rapid Res Negative (Negative)
[2023-06-05] MEDS ORDERED: ALBUTEROL 2.5 MG/3 ML NEB SOL ONE (13:24)
[2023-06-05] MEDS ORDERED: IPRATROPIUM BROM 0.5MG/2.5ML ONE (13:25)
[2023-06-05] MEDS: IPRATROPIUM BROM 0.5MG/2.5ML NEB SCH ×2 (13:30→20:35)
[2023-06-05] MEDS: ALBUTEROL 2.5 MG/3 ML NEB SOL NEB SCH ×2 (13:30→20:35)
--- NOTE | 2023-06-05 13:39 | RAD REPORT ---
EXAM DESCRIPTION: CT - Thorax Wo Con CLINICAL HISTORY: Chest pain R O PNA COMPARISON: Chest Single View dated 06/05/2023 FINDINGS: There is extensive bilateral ground-glass lung opacities present. This pattern is nonspeci fic but can be seen in pneumonia, pulmonary edema or viral infection such as coronavirus infection. N o pleural thickening or pleural effusion. No pneumothorax. Mildly enlarged lymphadenopathy is seen, in the pre tracheal region the largest measures 14 mm. No concerning bony finding. No gross upper abdominal finding. All CT scans are performed using dose optimization technique as appropriate and may include automated exposure control or mA/KV adjustment according to patient size. IMPRESSION: Moderate to extensive bilateral ground-glass lung opacities as detailed.
[2023-06-05] MEDS: ASPIRIN 81 MG CHEWABLE TABLET PO SCH (14:45)
[2023-06-05] MEDS: HYDROCODONE/APAP 10/325 TAB PO PRN ×2 (14:45→20:55)
[2023-06-05] MEDS: ENOXAPARIN 40 MG/0.4 ML SQ SCH (14:45)
[2023-06-05] MEDS ORDERED: ASPIRIN 81 MG CHEWABLE TABLET ONE (14:47)
[2023-06-05] MEDS ORDERED: HYDROCODONE/APAP 10/325 TAB ONE (14:50)
[2023-06-05] MEDS ORDERED: ENOXAPARIN 40 MG/0.4 ML SQ ONE (14:50)
[2023-06-05] MEDS: CEFEPIME 2 GM in NA CHLORIDE 0.9% 100 ML IV SCH (16:55)
[2023-06-05 17:10] LABS: Magnesium 1.6 mg/dL (1.6-2.4); Phosphorus 3.1 mg/dL (2.5-4.9); Thyroid Stimulating Hormone 0.279 uIU/mL (0.358-3.740)
[2023-06-05] MEDS: NICOTINE 21 MG/PAT TD SCH (17:36)
[2023-06-05 17:48] LABS: Ferritin 39.9 ng/mL (8-388); Transferrin 180 mg/dL (200-360)
[2023-06-05 17:49] LABS: Iron < 10.0 ug/dL (50-170)
[2023-06-05] MEDS ORDERED: POTASSIUM CL SA 10 MEQ TAB PO ONE (20:33)
[2023-06-05] MEDS ORDERED: MAGNESIUM SULFATE 1 gm IVPB 1 GM/100 ML BAG IV ONE (20:33)
[2023-06-05 20:36] LABS: Specific Gravity 1.023 (1.005-1.030); Urine Bacteria <20 /HPF (<20); Urine Bilirubin NEGATIVE (Negative); Urine Blood Trace (Negative); Urine Clarity Extremely Turbid (Clear); Urine Color Yellow (Yellow); Urine Glucose NEGATIVE (Negative); Urine Mucus Slight /HPF (None Seen); Urine Protein 1+ (Negative); Urine RBC <5 /HPF (None Seen); Urine Urobilinogen Normal (Normal); Urine pH 5.5 (5.0-7.0)
[2023-06-05] MEDS: PANTOPRAZOLE 40MG TABLET PO SCH (20:55)
[2023-06-05] MEDS: ALPRAZOLAM 0.5 MG TABLET PO PRN (20:55)
[2023-06-05] MEDS ORDERED: HYDROMORPHONE HCL 1 MG/ML INJ IV ONE (22:01)
[2023-06-06] MEDS: CEFEPIME 2 GM in NA CHLORIDE 0.9% 100 ML IV SCH ×3 (00:25→16:10)
[2023-06-06] MEDS: METHYLPREDNISOLONE 40 MG INJ IV SCH ×2 (00:25→05:55)
[2023-06-06] MEDS: ALBUTEROL 2.5 MG/3 ML NEB SOL NEB SCH ×5 (02:15→20:10)
[2023-06-06] MEDS: IPRATROPIUM BROM 0.5MG/2.5ML NEB SCH ×4 (02:15→20:10)
[2023-06-06] MEDS: HYDROCODONE/APAP 10/325 TAB PO PRN (02:47)
[2023-06-06] MEDS: VANCOMYCIN 1 GM in NA CHLORIDE 0.9% 250 ML IVPB SCH ×3 (02:47→21:59)
[2023-06-06 05:12] LABS: Absolute Lymphocytes (CBC) 0.5 K/uL (0.7-4.9); Hematocrit 22.7 % (36.0-45.0); Lymphocytes % 4.8 % (15.3-44.8); MPV 8.5 fL (7.6-11.3); Platelets 301 thou/uL (152-406); RBC Red Blood Cell Count 2.91 M/uL (3.86-4.86)
[2023-06-06 05:23] LABS: Phosphorus 1.6 mg/dL (2.5-4.9); Potassium 3.7 mEq/L (3.5-5.1)
[2023-06-06] MEDS: HYDROCODONE/APAP 5/325 MG TAB PO PRN ×4 (07:17→19:35)
[2023-06-06] MEDS: POTASS/SODIUM PHOSPHATE 1 PKT POWD.PACK PO SCH ×3 (07:17→09:12)
[2023-06-06] MEDS: PANTOPRAZOLE 40MG TABLET PO SCH ×2 (08:07→20:37)
[2023-06-06] MEDS: ENOXAPARIN 40 MG/0.4 ML SQ SCH (08:07)
[2023-06-06] MEDS: NICOTINE 21 MG/PAT TD SCH (08:07)
[2023-06-06] MEDS: ASPIRIN 81 MG CHEWABLE TABLET PO SCH (08:07)
[2023-06-06] MEDS: ALPRAZOLAM 0.5 MG TABLET PO PRN ×3 (08:08→22:43)
--- NOTE | 2023-06-06 08:15 | P.CNS ---
Date of Consult: 06/06/23 Reason for Consult: Bilateral pneumonia Chief Complaint: Shortness of breath History of Present Illness: Patient is 42 years of age medical history of hypertension GERD smoker complaining of shortness of breath. To the emergency room and the ICU with respiratory failure hypoxemia Complaining of cough and congestion with smoker Allergies acetaminophen [From Darvocet-N 100] Allergy (Verified 03/15/13 14:12) Itching/Hives/Rash propoxyphene napsylate [From Darvocet-N 100] Allergy (Verified 03/15/13 14:12) Itching/Hives/Rash Home Medications: Pantoprazole [Protonix Tab*] 40 mg PO BID 03/03/23 ALPRAZolam [Xanax*] 0.5 mg PO TID PRN #30 tab 03/11/23 Albuterol Neb [Proventil 0.083% Neb Soln] 2.5 mg NEB [id number] PRN #60 amp 03/11/23 Hydrocodone 10/APAP 325 [[place] 10/325*] 1 tab PO Q6H PRN #30 tab 03/11/23 Ipratropium Neb [Atrovent*] 0.5 mg NEB [id number] #60 amp 03/11/23 Metoprolol Tartrate [Lopressor*] 25 mg PO BID 6AM 6PM #60 tab 03/11/23 - Past Medical/Surgical History Diabetic: No -: Anxiety disorder -: Nicotine dependence -: Hypertension -: GERD -: Chronic back pain -: BTL - Family History Father Medical History: Cancer Notes: pelvic cancer Mother Medical History: Cancer Notes: lung cnacer, brain cancer Brother Notes: SIDS - Social History Smoking Status: Current every day smoker Alcohol use: No CD- Drugs: No Caffeine use: No Place of Residence: Home Review of Systems General: Weakness Respiratory: Cough, Shortness of Breath Physical Examination Temp Pulse Resp BP Pulse Ox 98.6 F 98 H 20 96/65 97 06/06/23 04:00 06/06/23 04:00 06/06/23 07:17 06/06/23 04:00 06/06/23 07:17 General: Alert, Mild distress Respiratory: Crackles/rales, Expiratory wheezes Cardiovascular: No edema, Regular rate/rhythm Gastrointestinal: Normal bowel sounds, Soft and benign Laboratory Data (last 24 hrs) 06/05/23 06/05/23 06/05/23 09:05 09:05 09:05 WBC 15.80 H Hgb 9.5 L Hct 30.4 L Plt Count 414 H PT 17.2 H INR 1.56 APTT 33.2 Sodium 135 L Potassium 3.5 BUN 23 H Creatinine 0.83 Glucose 80 Total Bilirubin 0.4 AST 62 H ALT 14 Alkaline Phosphatase 99 - Problems (1) Community acquired bilateral lower lobe pneumonia Current Visit: No Status: Acute Plan: Patient is 42 years of age heavy smoker admitted with bilateral pneumonia x-ray shows extensive bilateral groundglass changes patient is COVID-negative microcytic anemia elevated white count right now start patient on prednisone due to extensive groundglass changes add p.o. levofloxacin can DC vancomycin once the cultures are negative no signs reviewed on high flow oxygen can titrate O2 down
[2023-06-06] MEDS ORDERED: POTASSIUM CL SA 10 MEQ TAB PO ONE (09:00)
[2023-06-06] MEDS: levoFLOXacin 750 MG TAB PO SCH (09:12)
[2023-06-06] MEDS: predniSONE 20 MG TAB PO SCH ×2 (09:12→20:37)
--- NOTE | 2023-06-06 13:43 | P.PN ---
Subjective Date of Service: 06/06/23 Chief Complaint: Shortness of breath Patient complaining of back pain which is chronic. She is currently maintained on high flow oxygen 25 l/min. She tested positive for influenza B. Physical Examination - Vital Signs Temperature: 98.6 F Blood Pressure: 93/65 Pulse: 100 Respirations: 22 Pulse Ox (%): 95 Assessment And Plan - Plan Physical Exam General: Alert, Oriented x3, Cooperative. Neck: Supple, No LAD, Without JVD or thyroid abnormality Respiratory: Adequate breath sounds bilaterally, bilateral crackles. Cardiovascular: No edema, Regular rate/rhythm, Normal S1 S2 Gastrointestinal: Normal bowel sounds, No tenderness Musculoskeletal: No clubbing, No tenderness Integumentary: No rashes, No significant lesion Neurological: Normal speech, Normal tone, Normal affect Lymphatics: No axilla or inguinal lymphadenopathy Diagnosis Acute respiratory failure with hypoxia Pneumonia-bilateral GERD Nicotine dependence Chronic back pain Influenza B. Plan Acute respiratory failure with hypoxia/pneumonia/Sepsis Patient with diffuse pneumonia Severe respiratory failure. Noted she has diffuse rashes which could suggest folliculitis. Influenza B positive Viral pneumonia with secondary bacterial infection highly likely. Sepsis is improving. Start Tamiflu IV antibiotics-IV Levaquin and vancomycin Pulmonary consult Chest physiotherapy. Continue steroid. Wean oxygen as tolerated. MRSA nasal swab Follow cultures. Chronic back pain [place] as needed. Increase activity as tolerated. GERD PPI DVT prophylaxis: Lovenox SQ Discharge Plan: Home Plan to discharge in: Greater than 2 days
[2023-06-06] MEDS ORDERED: KETOROLAC 30 MG/ML INJ IV ONE (13:48)
[2023-06-06] MEDS ORDERED: CALCIUM CARBONATE CHEW 500MG TAB PO PRN (17:24)
[2023-06-06] MEDS: HYDROCODONE/APAP 7.5/325 MG TAB PO PRN (21:59)
[2023-06-07] MEDS: CEFEPIME 2 GM in NA CHLORIDE 0.9% 100 ML IV SCH ×2 (01:47→08:08)
[2023-06-07] MEDS: IPRATROPIUM BROM 0.5MG/2.5ML NEB SCH ×4 (02:00→19:30)
[2023-06-07] MEDS: ALBUTEROL 2.5 MG/3 ML NEB SOL NEB SCH ×4 (02:00→19:30)
[2023-06-07] MEDS: HYDROCODONE/APAP 7.5/325 MG TAB PO PRN ×2 (04:00→09:48)
[2023-06-07 05:23] LABS: Potassium 4.2 mEq/L (3.5-5.1)
[2023-06-07 05:25] LABS: Phosphorus 1.2 mg/dL (2.5-4.9)
[2023-06-07 05:29] VITALS: BMI 18.5
[2023-06-07] MEDS: POTASS/SODIUM PHOSPHATE 1 PKT POWD.PACK PO SCH ×3 (06:15→08:50)
[2023-06-07] MEDS: predniSONE 20 MG TAB PO SCH ×2 (08:08→20:58)
[2023-06-07] MEDS: NICOTINE 21 MG/PAT TD SCH (08:08)
[2023-06-07] MEDS: levoFLOXacin 750 MG TAB PO SCH (08:08)
[2023-06-07] MEDS: ALPRAZOLAM 0.5 MG TABLET PO PRN ×3 (08:08→23:06)
[2023-06-07] MEDS: ASPIRIN 81 MG CHEWABLE TABLET PO SCH (08:08)
[2023-06-07] MEDS: PANTOPRAZOLE 40MG TABLET PO SCH ×2 (08:08→20:58)
[2023-06-07] MEDS ORDERED: VANCOMYCIN 1 GM in NA CHLORIDE 0.9% 250 ML IVPB SCH (09:00)
[2023-06-07] MEDS: HYDROCODONE/APAP 10/325 TAB PO PRN ×2 (15:26→21:36)
--- NOTE | 2023-06-07 17:44 | P.PN ---
Subjective Date of Service: 06/07/23 Chief Complaint: Shortness of breath No major changes from yesterday Patient is maintained on high flow oxygen. She has been afebrile. Physical Examination - Vital Signs Temperature: 97.9 F Blood Pressure: 115/85 Pulse: 113 Respirations: 24 Pulse Ox (%): 95 Assessment And Plan - Plan Physical Exam General: Alert, Oriented x3, Cooperative. Respiratory: Adequate breath sounds bilaterally, bilateral crackles. Cardiovascular: No edema, Regular rate/rhythm, Normal S1 S2 Gastrointestinal: Normal bowel sounds, No tenderness Musculoskeletal: No clubbing, No tenderness Integumentary: No rashes. Neurological: Normal speech, no focal motor deficit. Diagnosis Acute respiratory failure with hypoxia Pneumonia-bilateral GERD Nicotine dependence Chronic back pain Influenza B. Plan Acute respiratory failure with hypoxia/pneumonia/Sepsis Patient with diffuse pneumonia Severe respiratory failure. Noted she has diffuse rashes which could suggest folliculitis. Nasal swab is positive for coagulase positive staph. Influenza B positive. Viral pneumonia with secondary staphylococcal pneumonia suspected. Blood culture shows no growth. Sepsis is improving. Patient may not benefit from Tamiflu. IV antibiotics- Levaquin and vancomycin Pulmonary input appreciated. Chest physiotherapy. Continue steroid. Wean oxygen as tolerated. Follow cultures. Chronic back pain [place] as needed. Increase activity as tolerated. GERD PPI Microcytic anemia Unknown source Check iron profile Hold all anticoagulation Monitor and transfuse as needed for hemoglobin less than 7. DVT prophylaxis: SCD Discharge Plan: Home
[2023-06-07] MEDS: MORPHINE 2 MG/ML SYR IV PRN (19:56)
[2023-06-07] MEDS: Mupirocin NASAL 2 APPL/1 GM TUBE NAS SCH (20:58)
[2023-06-07] MEDS: VANCOMYCIN 1 GM in NA CHLORIDE 0.9% 250 ML IVPB SCH (20:58)
[2023-06-08] MEDS: ALBUTEROL 2.5 MG/3 ML NEB SOL NEB SCH ×4 (01:45→19:20)
[2023-06-08] MEDS: IPRATROPIUM BROM 0.5MG/2.5ML NEB SCH ×4 (01:45→19:20)
[2023-06-08] MEDS: MORPHINE 2 MG/ML SYR IV PRN ×4 (02:15→20:58)
[2023-06-08] MEDS: HYDROCODONE/APAP 10/325 TAB PO PRN ×4 (04:35→22:27)
[2023-06-08 05:35] LABS: Hematocrit 23.5 % (36.0-45.0); Lymphocytes % 9.7 % (15.3-44.8); MCV 78.1 fL (80-100); MPV 8.1 fL (7.6-11.3); Platelets 336 thou/uL (152-406)
[2023-06-08 07:02] LABS: Albumin 2.1 g/dL (3.4-5.0); Bilirubin Total 0.1 mg/dL (0.2-1.0); Potassium 3.8 mEq/L (3.5-5.1); Protein, Total 5.9 g/dL (6.4-8.2)
[2023-06-08] MEDS ORDERED: POTASSIUM CL SA 10 MEQ TAB PO ONE (07:20)
[2023-06-08] MEDS: Mupirocin NASAL 2 APPL/1 GM TUBE NAS SCH ×2 (08:18→20:57)
[2023-06-08] MEDS: levoFLOXacin 750 MG TAB PO SCH (08:19)
[2023-06-08] MEDS: ASPIRIN 81 MG CHEWABLE TABLET PO SCH (08:19)
[2023-06-08] MEDS: predniSONE 20 MG TAB PO SCH ×2 (08:20→20:56)
[2023-06-08] MEDS: PANTOPRAZOLE 40MG TABLET PO SCH ×2 (08:20→20:56)
[2023-06-08] MEDS: NICOTINE 21 MG/PAT TD SCH (08:20)
[2023-06-08] MEDS: POTASS/SODIUM PHOSPHATE 1 PKT POWD.PACK PO SCH ×3 (08:20→10:13)
[2023-06-08] MEDS: VANCOMYCIN 1 GM in NA CHLORIDE 0.9% 250 ML IVPB SCH ×2 (08:21→20:57)
[2023-06-08] MEDS: ALPRAZOLAM 0.5 MG TABLET PO PRN ×2 (09:09→20:56)
--- NOTE | 2023-06-08 11:36 | P.PN ---
Subjective Date of Service: 06/08/23 Chief Complaint: Shortness of breath Patient states she feels much better today. She is clinically improving. High flow oxygen weaned down to oxygen by nasal cannula 8 L/min She has been afebrile. Physical Examination - Vital Signs Temperature: 98.5 F Blood Pressure: 110/86 Pulse: 99 Respirations: 20 Pulse Ox (%): 100 Assessment And Plan - Plan Physical Exam General: Alert, Oriented x3, Cooperative. Respiratory: Adequate breath sounds bilaterally, bilateral crackles. Cardiovascular: No edema, Regular rate/rhythm, Normal S1 S2 Gastrointestinal: Normal bowel sounds, No tenderness Musculoskeletal: No clubbing, No tenderness Integumentary: No rashes. Neurological: Normal speech, no focal motor deficit. Diagnosis Acute respiratory failure with hypoxia Pneumonia-bilateral GERD Nicotine dependence Chronic back pain Influenza B. Plan Acute respiratory failure with hypoxia/pneumonia/Sepsis Patient with diffuse pneumonia Severe respiratory failure. Suspected folliculitis. Nasal swab is positive for MRSA Influenza B positive. Viral pneumonia with secondary staphylococcal pneumonia suspected. Blood culture shows no growth. Sepsis is improving. Leukocytosis resolved. Patient may not benefit from Tamiflu. IV antibiotics- Levaquin and vancomycin Pulmonary input appreciated. Chest physiotherapy. Continue steroid. Wean oxygen as tolerated. Follow cultures. Chronic back pain [place] as needed. Increase activity as tolerated. GERD PPI Microcytic anemia/iron deficiency anemia Unknown source Hold all anticoagulation Monitor and transfuse as needed for hemoglobin less than 7. Iron replacement once infection is adequately treated. DVT prophylaxis: SCD Discharge Plan: Home
[2023-06-09] MEDS: ALBUTEROL 2.5 MG/3 ML NEB SOL NEB SCH ×4 (01:25→19:30)
[2023-06-09] MEDS: IPRATROPIUM BROM 0.5MG/2.5ML NEB SCH ×4 (01:25→19:30)
[2023-06-09] MEDS: MORPHINE 2 MG/ML SYR IV PRN ×4 (03:26→21:53)
[2023-06-09 04:49] LABS: Absolute Lymphocytes (CBC) 1.2 K/uL (0.7-4.9); Lymphocytes % 13.5 % (15.3-44.8); MCV 78.7 fL (80-100); MPV 7.9 fL (7.6-11.3); Platelets 335 thou/uL (152-406); RBC Red Blood Cell Count 3.05 M/uL (3.86-4.86)
[2023-06-09 05:09] LABS: Potassium 3.9 mEq/L (3.5-5.1)
[2023-06-09 05:19] LABS: Magnesium 1.9 mg/dL (1.6-2.4); Phosphorus 2.3 mg/dL (2.5-4.9)
[2023-06-09] MEDS: ALPRAZOLAM 0.5 MG TABLET PO PRN ×3 (05:45→23:55)
[2023-06-09] MEDS: HYDROCODONE/APAP 10/325 TAB PO PRN ×3 (05:45→20:09)
[2023-06-09] MEDS ORDERED: POTASSIUM CL SA 10 MEQ TAB PO ONE (07:22)
[2023-06-09] MEDS: NICOTINE 21 MG/PAT TD SCH (08:28)
[2023-06-09] MEDS: VANCOMYCIN 1 GM in NA CHLORIDE 0.9% 250 ML IVPB SCH (08:28)
[2023-06-09] MEDS: Mupirocin NASAL 2 APPL/1 GM TUBE NAS SCH ×2 (08:28→20:15)
[2023-06-09] MEDS: PANTOPRAZOLE 40MG TABLET PO SCH ×2 (08:29→20:17)
[2023-06-09] MEDS: POTASS/SODIUM PHOSPHATE 1 PKT POWD.PACK PO SCH ×3 (08:29→09:48)
[2023-06-09] MEDS: predniSONE 20 MG TAB PO SCH ×2 (08:29→20:17)
[2023-06-09] MEDS: ASPIRIN 81 MG CHEWABLE TABLET PO SCH (08:29)
[2023-06-09] MEDS: levoFLOXacin 750 MG TAB PO SCH (09:48)
--- NOTE | 2023-06-09 11:10 | P.PN ---
Subjective Date of Service: 06/09/23 Chief Complaint: Shortness of breath Patient reports feeling significantly better today. She has been tolerating room air since this morning. She has been afebrile. Physical Examination - Vital Signs Temperature: 97.2 F Blood Pressure: 100/62 Pulse: 81 Respirations: 18 Pulse Ox (%): 92 Assessment And Plan - Plan Physical Exam General: Alert, Oriented x3, NAD Respiratory: Adequate breath sounds bilaterally, bilateral crackles. Cardiovascular: No edema, Regular rate/rhythm, Normal S1 S2 Gastrointestinal: Normal bowel sounds, No tenderness Musculoskeletal: No clubbing, No tenderness Integumentary: No rashes. Neurological: Normal speech, no focal motor deficit. Diagnosis Acute respiratory failure with hypoxia Pneumonia-bilateral GERD Nicotine dependence Chronic back pain Influenza B. Plan Acute respiratory failure with hypoxia/pneumonia/Sepsis Patient with diffuse pneumonia Respiratory failure is improving Suspected folliculitis. Nasal swab is positive for MRSA Influenza B positive. Viral pneumonia with secondary staphylococcal pneumonia suspected. Blood culture shows no growth. Sepsis resolved Leukocytosis resolved. Continue IV antibiotics- Levaquin and vancomycin Seen and evaluated by pulmonary. Chest physiotherapy. Continue oral prednisone Repeat chest x-ray Chronic back pain [place] as needed. Increase activity as tolerated. GERD PPI Microcytic anemia/iron deficiency anemia Unknown source Hemoglobin has been stable. Monitor and transfuse as needed for hemoglobin less than 7. Iron replacement once infection is adequately treated. DVT prophylaxis: SCD Discharge Plan: Home
--- NOTE | 2023-06-09 15:46 | RAD REPORT ---
EXAM DESCRIPTION: RADChest Single View06/09/2023 3:03 pm CLINICAL HISTORY: Pneumonia COMPARISON: Chest Single View dated 06/05/2023; Chest Single View dated 03/11/2023; Chest Single View dated 03/09/2023; Chest Single View dated 03/07/2023 TECHNIQUE: Portable AP view of the chest. FINDINGS: Partial improvement of bilateral patchy airspace opacities. No pneumothorax or effusion. The cardiomediastinal contours are unremarkable. IMPRESSION: Partial improvement of bilateral patchy airspace opacities suggestive of pneumonia.
[2023-06-09] MEDS: VANCOMYCIN 1.5 GM in NA CHLORIDE 0.9% 500 ML IVPB SCH (20:17)
[2023-06-09] MEDS ORDERED: VANCOMYCIN 1 GM/VIAL ONE (20:31)
[2023-06-10] MEDS: ALBUTEROL 2.5 MG/3 ML NEB SOL NEB SCH ×2 (02:00→07:52)
[2023-06-10] MEDS: IPRATROPIUM BROM 0.5MG/2.5ML NEB SCH ×2 (02:00→07:52)
[2023-06-10 03:26] LABS: Absolute Lymphocytes (CBC) 1.6 K/uL (0.7-4.9); Hematocrit 25.7 % (36.0-45.0); Lymphocytes % 12.9 % (15.3-44.8); MCV 77.7 fL (80-100); MPV 7.8 fL (7.6-11.3); Platelets 369 thou/uL (152-406); RBC Red Blood Cell Count 3.31 M/uL (3.86-4.86)
[2023-06-10] MEDS: MORPHINE 2 MG/ML SYR IV PRN ×2 (03:55→10:35)
[2023-06-10] MEDS: HYDROCODONE/APAP 10/325 TAB PO PRN (05:51)
[2023-06-10] MEDS: ASPIRIN 81 MG CHEWABLE TABLET PO SCH (08:20)
[2023-06-10] MEDS: VANCOMYCIN 1.5 GM in NA CHLORIDE 0.9% 500 ML IVPB SCH (08:20)
[2023-06-10] MEDS: NICOTINE 21 MG/PAT TD SCH (08:20)
[2023-06-10] MEDS: predniSONE 20 MG TAB PO SCH (08:20)
[2023-06-10] MEDS: ALPRAZOLAM 0.5 MG TABLET PO PRN (08:20)
[2023-06-10] MEDS: Mupirocin NASAL 2 APPL/1 GM TUBE NAS SCH (08:21)
[2023-06-10] MEDS: PANTOPRAZOLE 40MG TABLET PO SCH (08:21)
[2023-06-10] MEDS: levoFLOXacin 750 MG TAB PO SCH (08:21)
[2023-06-10] MEDS ORDERED: VANCOMYCIN 1.5 GM in NA CHLORIDE 0.9% 500 ML IVPB SCH (09:00)
--- NOTE | 2023-06-10 09:16 | P.DS ---
Admission Date: 06/05/23 Discharge Date: 06/10/23 Disposition: ROUTINE DISCHARGE Discharge Condition: FAIR Reason for Admission: Shortness of breath Brief History of Present Illness: Patient is a 42-year-old with a past medical history significant for hypertension, anxiety disorder, GERD, nicotine dependence, chronic back pain who presented with complaint of shortness of breath. Patient reports associated signs and symptoms of chest tightness. Patient denies any other signs and symptoms. Symptoms are aggravated or relieved by nothing. Patient called EMS who noticed that patient's O2 sat was 70% on room air. Patient was brought to the ER for medical evaluation. Chest x-ray showed bilateral opacities indicative of pneumonia. She was placed on BiPAP in the ER. Patient was started on IV antibiotics and admitted for further management. Hospital Course: Diagnosis Acute respiratory failure with hypoxia Pneumonia-bilateral GERD Nicotine dependence Chronic back pain Influenza B. Patient admitted to the medical floor and the following medical problems addressed: Plan Acute respiratory failure with hypoxia/pneumonia/Sepsis Patient with diffuse pneumonia Suspected folliculitis. Nasal swab positive for MRSA Influenza B positive. Viral pneumonia with secondary staphylococcal pneumonia suspected. Patient treated with IV Levaquin and IV vancomycin. Steroid added for possible inflammatory pneumonia. Blood culture showed no growth. Sepsis resolved, Leukocytosis resolved. Continue IV antibiotics- Levaquin and vancomycin Seen and evaluated by pulmonary. She was initially requiring BiPAP which was weaned to high flow, nasal cannula and subsequently to room air. She has tolerated room air at rest and with ambulation. Repeat chest x-ray shows significant improvement in bilateral infiltrates. Patient overall has clinically improved, she is tolerating diet, she is asymptomatic and deemed stable for discharge. Chronic back pain This was managed with [place] as needed GERD Managed with PPI Microcytic anemia/iron deficiency anemia Unknown source Hemoglobin has been stable. Monitor and transfuse as needed for hemoglobin less than 7. Iron replacement prescribed. Vital Signs/Physical Exam: Temp Pulse Resp BP Pulse Ox 97.0 F 90 20 117/81 93 06/10/23 04:00 06/10/23 04:00 06/10/23 05:51 06/10/23 04:00 06/10/23 05:51 General: Alert, In no apparent distress, Oriented x3 HEENT: Mucous membr. moist/pink Neck: Supple, JVD not distended Respiratory: Normal air movement, Crackles/rales (Mild bibasilar crackles) Cardiovascular: No edema, Regular rate/rhythm, Normal S1 S2 Gastrointestinal: Normal bowel sounds, Soft and benign, Non-distended, No tenderness Musculoskeletal: No swelling Integumentary: No cyanosis Laboratory Data at Discharge: WBC 12.20 thou/uL (4.3-10.9) H 06/10/23 02:37 Hgb 8.1 g/dL (12.0-15.0) L 06/10/23 02:37 Hct 25.7 % (36.0-45.0) L 06/10/23 02:37 Plt Count 369 thou/uL (152-406) 06/10/23 02:37 PT 17.2 SECONDS (9.5-12.5) H 06/05/23 09:05 INR 1.56 06/05/23 09:05 APTT 33.2 SECONDS (24.3-36.9) 06/05/23 09:05 Sodium 139 mEq/L (136-145) 06/09/23 04:05 Potassium 3.9 mEq/L (3.5-5.1) 06/09/23 04:05 BUN 12 mg/dL (7-18) 06/09/23 04:05 Creatinine 0.46 mg/dL (0.55-1.02) L 06/09/23 04:05 Glucose 162 mg/dL (74-106) H 06/09/23 04:05 Phosphorus 2.3 mg/dL (2.5-4.9) L 06/09/23 04:05 Magnesium 1.9 mg/dL (1.6-2.4) 06/09/23 04:05 Total Bilirubin 0.1 mg/dL (0.2-1.0) L 06/08/23 04:21 AST 12 U/L (15-37) L 06/08/23 04:21 ALT 11 U/L (13-56) L 06/08/23 04:21 Alkaline Phosphatase 81 U/L (45-117) 06/08/23 04:21 Triglycerides 131 mg/dL (<150) 06/06/23 04:28 Cholesterol 104 mg/dL (<200) 06/06/23 04:28 HDL Cholesterol 14 mg/dL (40-60) L 06/06/23 04:28 Cholesterol/HDL Ratio 7.43 06/06/23 04:28 Home Medications: Pantoprazole [Protonix Tab*] 40 mg PO BID 03/03/23 ALPRAZolam [Xanax*] 0.5 mg PO TID PRN #30 tab 03/11/23 Albuterol Neb [Proventil 0.083% Neb Soln] 2.5 mg NEB [id number] PRN #60 amp 03/11/23 Hydrocodone 10/APAP 325 [[place] 10/325*] 1 tab PO Q6H PRN #30 tab 03/11/23 Ipratropium Neb [Atrovent*] 0.5 mg NEB [id number] #60 amp 03/11/23 Chlorhexidine 4% [Betasept*] 120 ml TP DAILY 5 Days #5 bottle 06/10/23 Doxycycline Hyclate 100 mg PO BID #14 cap 06/10/23 Iron Polysaccharide Complex [Polysaccharide Iron] 150 mg PO DAILY #30 cap 06/10/23 Mupirocin Calcium [Bactroban Nasal*] 1 appl MAIKEL BID 7 Days #1 tube 06/10/23 levoFLOXacin [Levaquin*] 750 mg PO DAILY #10 tab 06/10/23 predniSONE [Prednisone*] 20 mg PO BID #10 tab 06/10/23 New Medications: Mupirocin Calcium [Bactroban Nasal*] 1 appl MAIKEL BID 7 Days #1 tube Chlorhexidine 4% [Betasept*] 120 ml TP DAILY 5 Days #5 bottle Doxycycline Hyclate 100 mg PO BID #14 cap levoFLOXacin [Levaquin*] 750 mg PO DAILY #10 tab Iron Polysaccharide Complex [Polysaccharide Iron] 150 mg PO DAILY #30 cap predniSONE [Prednisone*] 20 mg PO BID #10 tab Diet: Regular Activity: Ad vega Followup: OOTOOT [Primary Care Provider] - Time spent managing pt's care (in minutes): 35
[2023-06-10 10:05] VITALS: TEMP 97.7
[2023-06-10 10:06] VITALS: O2SAT 98
[2023-06-10] MEDS ORDERED: DOXYCYCLINE 100 MG CAP PO SCH (11:00)
[2023-06-10 12:03] VITALS: BP 122/90
== END 2023-06-10 13:40 | disposition home or self-care (01) | DRG 871 ==
LOC: ER 08:39 → ERHOLD 11:43 → 3RD-ICU 15:24 → 2ND 06-09 16:30
PROVIDERS: ADMIT Internal Medicine; ATTEND Internal Medicine
PROC: 5A09557 Assistance with Respiratory Ventilation, Greater than 96 Consecutive Hours, Continuous Positive Airway Pressure (ICD-10-PCS; principal; 2023-06-05)
DX: A41.02 Sepsis due to Methicillin resistant Staphylococcus aureus (principal); J10.00 Influenza due to other identified influenza virus with unspecified type of pneumonia; J96.01 Acute respiratory failure with hypoxia; K21.9 Gastro-esophageal reflux disease without esophagitis; I10 Essential (primary) hypertension; F41.9 Anxiety disorder, unspecified; D64.9 Anemia, unspecified; G89.29 Other chronic pain; M54.9 Dorsalgia, unspecified; F17.210 Nicotine dependence, cigarettes, uncomplicated; Z88.8 Allergy status to other drugs, medicaments and biological substances; Z79.52 Long term (current) use of systemic steroids; Z79.899 Other long term (current) drug therapy; Z20.822 Contact with and (suspected) exposure to COVID-19
CPT/HCPCS: 36415; 71045; 71250; 80048; 80053; 80061; 80202; 81001; 82728; 82805; 82947; 83540; 83605; 83735; 83880; 84100; 84439; 84443; 84466; 85025; 85610; 85730; 87040; 87070; 87077; 87186; 87205; 87635; 87804; 87807; 87811; 93005; 94640; 94660; 96365; 96366; 96367; 99285; J0692; J1170; J1650; J2270; J2920; J3475; J7030; J7040; J7050; J7512; J7613; J7644

== ENCOUNTER 2023-08-04 20:15 | Inpatient (IN) | payer OTHER ==
--- OUTSIDE RECORDS SUMMARY | 2023-08-04 20:25 | XMS REPORT | Continuity of Care Document ---
:1980 Author Organization [facility] t Address [address] [facility]. [address] [place] [address] Care Team Providers Name Role Phone Tucker Pandey Primary Care Physician JEMIMA LUDWIG Attending Clinician Unavailable ANDREW GELLER Attending Clinician Unavailable Tucker Pandey Attending Clinician TUCKER ARAMBULA Attending Clinician Unavailable Elizabeth Crook MD Attending Clinician [phone] Flc-Lab Attending Clinician Unavailable Meme Vanegas MD Attending Clinician MEME VANEGAS Attending Clinician Unavailable José Manuel Hendrickson DO Attending Clinician Emilie GUADALUPE, Chuck Attending Clinician Shruthi Wise MD Attending Clinician José Manuel Hendrickson MD Attending Clinician Doctor Unassigned, [place] Attending Clinician Unavailable Gokul YEH, Lovely Weber Attending Clinician YE HU Attending Clinician Unavailable Familia EASTMAN, Shilpa Copeland Attending Clinician Bigg Dodd DO Attending Clinician Chris Pierre MD Attending Clinician Fritz GUADALUPE, Ye Attending Clinician She GUADALUPE, Tati Attending Clinician OCHOA BRADFORD Attending Clinician Unavailable DOROTA SAWYER Attending Clinician Unavailable Samir ASIAN STUDIES PROFESSORCece Attending Clinician Unavailable Lab, Ang - Db Attending Clinician Unavailable Dakota GUADALUPE, Nam Attending Clinician Chandni YEH, Karoline Vogt Attending Clinician Unavailable CANDACE WALSH Attending Clinician Unavailable Dee GUADALUPE, Gary Henry Attending Clinician Candace Walsh DO Attending Clinician Panfilo Russ MD Attending Clinician Hilda EASTMAN, Ketty Attending Clinician Kiel Almanzar MD Attending Clinician [phone] KIEL ALMANZAR Attending Clinician Unavailable Maria De Jesus [facility], Michelle Dye Attending Clinician Unavailable JYOTI FRAZIER Attending Clinician Unavailable Andrew Geller DO Attending Clinician JOSÉ MANUEL HENDRICKSON Attending Clinician Unavailable Jemima Ludwig MD Attending Clinician Vls-Lab Attending Clinician Unavailable Sarah Santacruz MD Attending Clinician Unavailable CHYNA RAMIRES Attending Clinician Unavailable Chyna Ramires MD Attending Clinician SHERIE MAY Attending Clinician Unavailable Rohit Pastor MD Attending Clinician ROHIT PASTOR Attending Clinician Unavailable Shital Naranjo S Attending Clinician Ashish Butts MD Attending Clinician Shira Woods RN R Attending Clinician Unavailable [facility] Attending Clinician Unavailable Estelle Rubio MD Attending Clinician ESTELLE RUBIO Attending Clinician Unavailable JEMIMA LUDWIG Admitting Clinician Unavailable ANDREW GELLER Admitting Clinician Unavailable PERSON, CHRIS Admitting Clinician Unavailable Person Chris GUADALUPE Admitting Clinician PANFILO RUSS Admitting Clinician Unavailable Panfilo Russ MD Admitting Clinician KIEL ALMANZAR Admitting Clinician Unavailable Jemima Ludiwg MD Admitting Clinician Ashish Butts MD Admitting Clinician Payers Payer Name Policy Type Policy Number Effective Date Expiration Date Jeannette [employer] [id number] 2020 HEALTH 00:00:00 [place]ID [place] [id number] 2017 00:00:00 Problems Condition Condition Condition Status [...] Added automatic ally from request for surgery [id number] Anxiety Anxiety Disease Active Univers 2-17 ity of 00:00: [place] 00 Medical Branch Excoriatio Excoriatio Disease Active U nivers n n 2-17 ity of (skin-pick (skin-pick [...] Added automatic ally from request for surgery [id number] Nausea and Nausea and Disease Active Overview : Univers vomiting, vomiting, 05-10 Formattin i ty of intractabi intractabi 00:00: g of this [place] lity of lity of 00 note Medical vomiting vomiting might be Bran ch not not different specified, specified, from the unspecifie unspecifie original. d vomiting d vomiting Added type type automatic ally from request for surgery [id number] History of History of Disease Active Overview : Univers bleeding bleeding 05-10 Formattin ity of peptic peptic 00:00: g of this [place] ulcer ulcer 00 note Medical might be Branch different from the original. Added automatic ally from request for surgery [id number] Duodenal Duodenal Disease Active Overview: Un evon ulcer ulcer - Formattin ity of 00:00: g of this [place] 00 note Medical might be Branch different from the original. Added automatic ally from request for surgery [id number] Upper GI Upper GI Disease Active Unive rs bleed bleed 6-07 ity of 00:00: [place] 00 Medical Branch Acute Acute Disease Active Univers upper GI upper GI 6-07 ity of bleed bleed 00:00: [place] 00 Medical Branch Allergies, Adverse Reactions, Alerts Allergy Allergy Status Severity Reaction(s) Onset Inactive Treating Comm ents Source Name Type Date Date Clinician TRAMADOL DRUG Active Anxiety Univers INGREDI 9-11 ity of 00:00: [place] 00 Medical Branch Tramadol Propensi Active Shortness of Univers ty to Breath 9-11 ity of adverse 00:00: [place] reaction 00 Medical s Branch TYLENOL- DRUG Active Anxiety 2021-10 Univers CODEINE 0-14 ity of #2 00:00: [place] 00 Medical Branch Tylenol- Propensi Active Rash 2021-10 Univer s Codeine ty to 0-14 ity of #2 adverse 00:00: [place] reaction 00 Medical s Branch NO KNOWN Drug Active Univers ALLERGIE Class ity of S [place] [facility] Social History Social Habit Start Date Stop Date Quantity Comments Source History SDOH Social Unive rsity of [facility] ical Together Branch History SDOH Social Unive rsity of [facility] Medical Branch History SDOH Social Unive rsity of [facility] [place] [facility] Membership Branch History SDOH Social Unive rsity of [facility] [place] [facility] Meetings [facility] Gender identity [facility]it y [facility] [place] [facility] Sexual orientation Univer sity of [place] [facility] History of tobacco Cigarette Smoker University of use [facility] Branch Alcohol intake 2023-06-24 2023-06-24 Lifetime University of 00:00:00 00:00:00 non-drinker [place] [facility] (finding) Branch History of Social 2023-06-24 2023-06-24 Univers ity of function 00:00:00 00:00:00 [place] [facility] Exposure to 2023-01-06 2023-01-16 Not sure University of SARS-CoV-2 (event) 00:00:00 11:21:00 [place] [facility] History SDOH 2022-12-31 2022-12-31 3 University o f Alcohol Frequency 00:00:00 00:00:00 [place] M edical Branch History SDOH 2022-12-31 2022-12-31 1 University o f Alcohol Std Drinks 00:00:00 00:00:00 [place] [facility] History SDOH 2022-12-31 2022-12-31 1 University o f Alcohol Binge 00:00:00 00:00:00 [place] [facility] al [facility] History SDOH Social 2022-12-31 2022-12-31 5 Unive rsity of Connections Phone 00:00:00 00:00:00 [place] M edical Branch History SDOH Social 2022-12-31 2022-12-31 8 Unive rsity of Connections Living 00:00:00 00:00:00 [place] [facility] History SDOH 2022-12-31 2022-12-31 1 University o f Physical Activity 00:00:00 00:00:00 [place] M edical DPW Branch History SDOH 2022-12-31 2022-12-31 3 University o f Physical Activity 00:00:00 00:00:00 [place] M edical MPS Branch History SDOH 2022-12-31 2022-12-31 5 University o f Financial 00:00:00 00:00:00 [place] [facility] History SDOH Food 2022-12-31 2022-12-31 1 Univers ity of Worry 00:00:00 00:00:00 [place] [facility] History SDOH Food 2022-12-31 2022-12-31 1 Univers ity of Scarcity 00:00:00 00:00:00 [place] [facility] History SDOH 2022-12-31 2022-12-31 2 University o f Transport Med 00:00:00 00:00:00 [place] [facility] History SDOH 2022-12-31 2022-12-31 2 University o f Transport Non-Med 00:00:00 00:00:00 [facility] Branch Cigarettes smoked 2022-12-30 2022-12-30 Univers ity of current (pack per 00:00:00 00:00:00 [facility] ) - Reported Branch Cigarette 2022-12-30 2022-12-30 University of pack-years 00:00:00 00:00:00 [facility] Tobacco Comment 2022-12-30 2022-12-30 Smokes a pack a Univ ersity of 00:00:00 00:00:00 day per pt, [facility] Tobacco use and 2022-12-30 2022-12-30 Smokeless Universit y of exposure 00:00:00 00:00:00 tobacco non-user [facility] Sex Assigned At [birth year] Universit y of 00:00:00 00:00:00 [facility] Smoking Status Start Date Stop Date Source Smokes tobacco daily 2022-12-30 00:00:00 Univers ity of [facility] Medications Ordered Filled Start Stop Current Ordering Indication Dosage Frequency Signature Comments Components Source Medication Medication Date Date Medication? Clinician (SIG) Name Name pantoprazol 2022-10 Yes [id number] 40mg Take 1 Univers e 40 mg EC 0-10 tablet by ity of tablet 00:00: mouth in [place] [address] the Medical morning Branch and 1 tablet in the evening. doxepin 50 2022-10 Yes [id number] 50mg Take 1 Univers mg capsule 0-03 capsule by ity of 00:00: mouth at [place] [address] bedtime. Medical MUST BE Branch SEEN FOR FURTHER REFILLS doxepin 50 2022-10 Yes [id number] 50mg Take 1 Univers mg capsule 0-03 capsule by ity of 00:00: mouth at [place] [address] bedtime. Medical MUST BE Branch SEEN FOR FURTHER REFILLS doxepin 50 2022-10 Yes [id number] 50mg Take 1 Univers mg capsule 0-03 capsule by ity of 00:00: mouth at [place] [address] bedtime. Medical MUST BE Branch SEEN FOR FURTHER REFILLS pantoprazol 2023-0 Yes [id number] 40mg Take 1 Univers e 40 mg EC 8-30 tablet by ity of tablet 00:00: mouth in [place] 00 the Medical morning Branch and 1 tablet in the evening. pantoprazol 3-0 Yes [id number] 40mg Take 1 Univers e 40 mg EC 8-30 tablet by ity of tablet 00:00: mouth in [place] 00 the Medical morning Branch and 1 tablet in the evening. pantoprazol 3-0 Yes [id number] 40mg Take 1 Univers e 40 mg EC 8-30 tablet by ity of tablet 00:00: mouth in [place] 00 the Medical morning Branch and 1 tablet in the evening. pantoprazol 3-0 Yes [id number] 40mg Take 1 Univers e 40 mg EC 8-30 tablet by ity of tablet 00:00: mouth in [place] 00 the Medical morning Branch and 1 tablet in the evening. pantoprazol 3-0 Yes [id number] 40mg Take 1 Univers e 40 mg EC 8-30 tablet by ity of tablet 00:00: mouth in [place] 00 the Medical morning Branch and 1 tablet in the evening. pantoprazol 3-0 Yes [id number] 40mg Take 1 Univers e 40 mg EC 8-30 tablet by ity of tablet 00:00: mouth in [place] 00 the Medical morning Branch and 1 tablet in the evening. pantoprazol 3-0 Yes [id number] 40mg Take 1 Univers e 40 mg EC 8-30 tablet by ity of tablet 00:00: mouth in [place] 00 the Medical morning Branch and 1 tablet in the evening. pantoprazol 3-0 2023- No [id number] 40mg Take 1 Univers e 40 mg EC 8-30 10-10 tablet by ity of tablet 00:00: 00:00 mouth in [place] 00 :00 the Medical morning Branch and 1 tablet in the evening. doxepin 50 3-0 Yes [id number] 50mg Take 1 Univers mg capsule 8-17 capsule by ity of 00:00: mouth at [place] [address] bedtime. Medical Branch doxepin 50 3-0 Yes [id number] 50mg Take 1 Univers mg capsule 8-17 capsule by ity of 00:00: mouth at [place] [address] bedtime. Medical Branch doxepin 50 2023-0 Yes [id number] 50mg Take 1 Univers mg capsule 8-17 capsule by ity of 00:00: mouth at [place] 00 bedtime. Medical Branch doxepin 50 2022-0 Yes [id number] 50mg Take 1 Univers mg capsule 8-17 capsule by ity of 00:00: mouth at [place] 00 bedtime. Medical Branch doxepin 50 2022-0 Yes [id number] 50mg Take 1 Univers mg capsule 8-17 capsule by ity of 00:00: mouth at [place] 00 bedtime. Medical Branch doxepin 50 2022-0 Yes [id number] 50mg Take 1 Univers mg capsule 8-17 capsule by ity of 00:00: mouth at [place] 00 bedtime. Medical Branch doxepin 50 2022-0 2022- No [id number] 50mg Take 1 Univers mg capsule 8-17 10-03 capsule by it y of 00:00: 00:00 mouth at [place] 00 :00 bedtime. Medical Branch docusate 2022-0 Yes [id number] 100mg Take 1 Un evon (COLACE) 5-19 capsule by ity o f 100 mg 00:00: mouth in [place] capsule 00 the Medical morning. Branch docusate 2022-0 Yes [id number] 100mg Take 1 Un evon (COLACE) 5-19 capsule by ity o f 100 mg 00:00: mouth in [place] capsule 00 the Medical morning. Branch docusate 2022-0 Yes [id number] 100mg Take 1 Un evon (COLACE) 5-19 capsule by ity o f 100 mg 00:00: mouth in [place] capsule 00 the Medical morning. Branch docusate 2022-0 Yes [id number] 100mg Take 1 Un evon (COLACE) 5-19 capsule by ity o f 100 mg 00:00: mouth in [place] capsule 00 the Medical morning. Branch docusate 2022-0 Yes [id number] 100mg Take 1 Un evon (COLACE) 5-19 capsule by ity o f 100 mg 00:00: mouth in [place] capsule 00 the Medical morning. Branch docusate 2022-0 Yes [id number] 100mg Take 1 Un evon (COLACE) 5-19 capsule by ity o f 100 mg 00:00: mouth in [place] capsule 00 the Medical morning. Branch docusate 2022-0 Yes [id number] 100mg Take 1 Un evon (COLACE) 5-19 capsule by ity o f 100 mg 00:00: mouth in [place] capsule 00 the Medical morning. Branch docusate 2022-0 Yes [id number] 100mg Take 1 Un evon (COLACE) 5-19 capsule by ity o f 100 mg 00:00: mouth in [place] capsule 00 the Medical morning. Branch docusate 2022-0 Yes [id number] 100mg Take 1 Un evon (COLACE) 5-19 capsule by ity o f 100 mg 00:00: mouth in [place] capsule 00 the Medical morning. Branch docusate 2022-0 Yes [id number] 100mg Take 1 Un evon (COLACE) 5-19 capsule by ity o f 100 mg 00:00: mouth in [place] capsule 00 the Medical morning. Branch docusate 0 Yes [id number] 100mg Take 1 Un evon (COLACE) 5-19 capsule by ity o f 100 mg 00:00: mouth in [place] capsule 00 the Medical morning. Branch docusate 2022-0 Yes [id number] 100mg Take 1 Un evon (COLACE) 5-19 capsule by ity o f 100 mg 00:00: mouth in [place] capsule 00 the Medical morning. Branch docusate 2022-0 Yes [id number] 100mg Take 1 Un evon (COLACE) 5-19 capsule by ity o f 100 mg 00:00: mouth in [place] capsule 00 the Medical morning. Branch docusate 2022-0 Yes [id number] 100mg Take 1 Un evon (COLACE) 5-19 capsule by ity o f 100 mg 00:00: mouth in [place] capsule 00 the Medical morning. Branch docusate 0 Yes [id number] 100mg Take 1 Un evon (COLACE) 5-17 capsule by ity o f 100 mg 00:00: mouth in [place] capsule 00 the Medical morning. Branch docusate 2022-0 2022- No [id number] 100mg Take 1 U nivers (COLACE) 5-17 05-19 capsule by ity of 100 mg 00:00: 00:00 mouth in [place] capsule 00 :00 the Medical morning. Branch ondansetron 2022-0 Yes [id number] 4mg Take 1 Univers 4 mg tablet 4-12 tablet by ity of 00:00: mouth [place] 00 every 12 Medical (twelve) Branch hours. ondansetron 2023-0 Yes [id number] 4mg Take 1 Univers 4 mg tablet 4-12 tablet by ity of 00:00: mouth [place] 00 every 12 Medical (twelve) Branch hours. ondansetron 2023-0 Yes [id number] 4mg Take 1 Univers 4 mg tablet 4-12 tablet by ity of 00:00: mouth [place] 00 every 12 Medical (twelve) Branch hours. ondansetron 2023-0 Yes [id number] 4mg Take 1 Univers 4 mg tablet 4-12 tablet by ity of 00:00: mouth [place] 00 every 12 Medical (twelve) Branch hours. ondansetron 2023-0 Yes [id number] 4mg Take 1 Univers 4 mg tablet 4-12 tablet by ity of 00:00: mouth [place] 00 every 12 Medical (twelve) Branch hours. ondansetron 2023-0 Yes [id number] 4mg Take 1 Univers 4 mg tablet 4-12 tablet by ity of 00:00: mouth [place] 00 every 12 Medical (twelve) Branch hours. ondansetron 2023-0 Yes [id number] 4mg Take 1 Univers 4 mg tablet 4-12 tablet by ity of 00:00: mouth [place] 00 every 12 Medical (twelve) Branch hours. ondansetron 2023-0 Yes [id number] 4mg Take 1 Univers 4 mg tablet 4-12 tablet by ity of 00:00: mouth [place] 00 every 12 Medical (twelve) Branch hours. ondansetron 2023-0 Yes [id number] 4mg Take 1 Univers 4 mg tablet 4-12 tablet by ity of 00:00: mouth [place] 00 every 12 Medical (twelve) Branch hours. ondansetron 2023-0 Yes [id number] 4mg Take 1 Univers 4 mg tablet 4-12 tablet by ity of 00:00: mouth [place] 00 every 12 Medical (twelve) Branch hours. ondansetron 2023-0 Yes [id number] 4mg Take 1 Univers 4 mg tablet 4-12 tablet by ity of 00:00: mouth [place] 00 every 12 Medical (twelve) Branch hours. ondansetron 2023-0 Yes [id number] 4mg Take 1 Univers 4 mg tablet 4-12 tablet by ity of 00:00: mouth [place] 00 every 12 Medical (twelve) Branch hours. ondansetron 2023-0 Yes [id number] 4mg Take 1 Univers 4 mg tablet 4-12 tablet by ity of 00:00: mouth [place] 00 every 12 Medical (twelve) Branch hours. ondansetron 2023-0 Yes [id number] 4mg Take 1 Univers 4 mg tablet 4-12 tablet by ity of 00:00: mouth [place] 00 every 12 Medical (twelve) Branch hours. ondansetron 2023-0 Yes [id number] 4mg Take 1 Univers 4 mg tablet 4-12 tablet by ity of 00:00: mouth [place] 00 every 12 Medical (twelve) Branch hours. ondansetron 2023-0 Yes [id number] 4mg Take 1 Univers 4 mg tablet 4-12 tablet by ity of 00:00: mouth [place] 00 every 12 Medical (twelve) Branch hours. ondansetron 2023-0 Yes [id number] 4mg Take 1 Univers 4 mg tablet 4-12 tablet by ity of 00:00: mouth [place] 00 every 12 Medical (twelve) Branch hours. ondansetron 2023-0 Yes [id number] 4mg Take 1 Univers 4 mg tablet 4-12 tablet by ity of 00:00: mouth [place] 00 every 12 Medical (twelve) Branch hours. ketoconazol 2023-0 Yes [id number] Apply to Univers e 2 % 4-05 area(s) ity of shampoo 00:00: [place] 00 as needed Medical for Branch Itching. triamcinolo 2023-0 Yes [id number] Apply to Univers ne 4-05 area(s) 2 ity of acetonide 00:00: (two) [place] 0.1 % cream 00 times Medical daily. Branch ketoconazol 2023-0 Yes [id number] Apply to Univers e 2 % 4-05 area(s) ity of shampoo 00:00: once [place] 00 as needed Medical for Branch Itching. triamcinolo 2023-0 Yes [id number] Apply to Univers ne 4-05 area(s) 2 ity of acetonide 00:00: (two) [place] 0.1 % cream 00 times Medical daily. Branch ketoconazol 2023-0 Yes [id number] Apply to Univers e 2 % 4-05 area(s) ity of shampoo 00:00: once [place] 00 as needed Medical for Branch Itching. triamcinolo 2023-0 Yes [id number] Apply to Univers ne 4-05 area(s) 2 ity of acetonide 00:00: (two) [place] 0.1 % cream 00 times Medical daily. Branch ketoconazol 2023-0 Yes [id number] Apply to Univers e 2 % 4-05 area(s) ity of shampoo 00:00: once [place] 00 as needed Medical for Branch Itching. triamcinolo 2023-0 Yes [id number] Apply to Univers ne 4-05 area(s) 2 ity of acetonide 00:00: (two) [place] 0.1 % cream 00 times Medical daily. Branch ketoconazol 2023-0 Yes [id number] Apply to Univers e 2 % 4-05 area(s) ity of shampoo 00:00: once [place] 00 as needed Medical for Branch Itching. triamcinolo 2023-0 Yes [id number] Apply to Univers ne 4-05 area(s) 2 ity of acetonide 00:00: (two) [place] 0.1 % cream 00 times Medical daily. Branch ketoconazol 2023-0 Yes [id number] Apply to Univers e 2 % 4-05 area(s) ity of shampoo 00:00: once [place] 00 as needed Medical for Branch Itching. triamcinolo 2023-0 Yes [id number] Apply to Univers ne 4-05 area(s) 2 ity of acetonide 00:00: (two) [place] 0.1 % cream 00 times Medical daily. Branch ketoconazol 2023-0 Yes [id number] Apply to Univers e 2 % 4-05 area(s) ity of shampoo 00:00: once [place] 00 as needed Medical for Branch Itching. triamcinolo 2023-0 Yes [id number] Apply to Univers ne 4-05 area(s) 2 ity of acetonide 00:00: (two) [place] 0.1 % cream 00 times Medical daily. Branch ketoconazol 2023-0 Yes [id number] Apply to Univers e 2 % 4-05 area(s) ity of shampoo 00:00: once [place] 00 as needed Medical for Branch Itching. triamcinolo 2023-0 Yes [id number] Apply to Univers ne 4-05 area(s) 2 ity of acetonide 00:00: (two) [place] 0.1 % cream 00 times Medical daily. Branch ketoconazol 2023-0 Yes [id number] Apply to Univers e 2 % 4-05 area(s) ity of shampoo 00:00: once [place] 00 as needed Medical for Branch Itching. triamcinolo 2023-0 Yes [id number] Apply to Univers ne 4-05 area(s) 2 ity of acetonide 00:00: (two) [place] 0.1 % cream 00 times Medical daily. Branch ketoconazol 2023-0 Yes [id number] Apply to Univers e 2 % 4-05 area(s) ity of shampoo 00:00: once [place] 00 as needed Medical for Branch Itching. triamcinolo 2023-0 Yes [id number] Apply to Univers ne 4-05 area(s) 2 ity of acetonide 00:00: (two) [place] 0.1 % cream 00 times Medical daily. Branch ketoconazol 2023-0 Yes [id number] Apply to Univers e 2 % 4-05 area(s) ity of shampoo 00:00: once [place] 00 as needed Medical for Branch Itching. triamcinolo 2023-0 Yes [id number] Apply to Univers ne 4-05 area(s) 2 ity of acetonide 00:00: (two) [place] 0.1 % cream 00 times Medical daily. Branch ketoconazol 2023-0 Yes [id number] Apply to Univers e 2 % 4-05 area(s) ity of shampoo 00:00: once [place] 00 as needed Medical for Branch Itching. triamcinolo 2023-0 Yes [id number] Apply to Univers ne 4-05 area(s) 2 ity of acetonide 00:00: (two) [place] 0.1 % cream 00 times Medical daily. Branch ketoconazol 2023-0 Yes [id number] Apply to Univers e 2 % 4-05 area(s) ity of shampoo 00:00: once [place] 00 as needed Medical for Branch Itching. triamcinolo 2023-0 Yes [id number] Apply to Univers ne 4-05 area(s) 2 ity of acetonide 00:00: (two) [place] 0.1 % cream 00 times Medical daily. Branch ketoconazol 2023-0 Yes [id number] Apply to Univers e 2 % 4-05 area(s) ity of shampoo 00:00: once daily [place] 00 as needed Medical for Branch Itching. triamcinolo 2023-0 Yes [id number] Apply to Univers ne 4-05 area(s) 2 ity of acetonide 00:00: (two) [place] 0.1 % cream 00 times Medical daily. Branch ketoconazol 2023-0 Yes [id number] Apply to Univers e 2 % 4-05 area(s) ity of shampoo 00:00: once [place] 00 as needed Medical for Branch Itching. triamcinolo 2023-0 Yes [id number] Apply to Univers ne 4-05 area(s) 2 ity of acetonide 00:00: (two) [place] 0.1 % cream 00 times Medical daily. Branch ketoconazol 2023-0 Yes [id number] Apply to Univers e 2 % 4-05 area(s) ity of shampoo 00:00: once [place] 00 as needed Medical for Branch Itching. triamcinolo 2023-0 Yes [id number] Apply to Univers ne 4-05 area(s) 2 ity of acetonide 00:00: (two) [place] 0.1 % cream 00 times Medical daily. Branch ketoconazol 2023-0 Yes [id number] Apply to Univers e 2 % 4-05 area(s) ity of shampoo 00:00: once [place] 00 as needed Medical for Branch Itching. triamcinolo 2023-0 Yes [id number] Apply to Univers ne 4-05 area(s) 2 ity of acetonide 00:00: (two) [place] 0.1 % cream 00 times Medical daily. Branch ketoconazol 2023-0 Yes [id number] Apply to Univers e 2 % 4-05 area(s) ity of shampoo 00:00: once [place] 00 as needed Medical for Branch Itching. triamcinolo 2023-0 Yes [id number] Apply to Univers ne 4-05 area(s) 2 ity of acetonide 00:00: (two) [place] 0.1 % cream 00 times Medical daily. Branch ketoconazol 2023-0 Yes [id number] Apply to Univers e 2 % 4-05 area(s) ity of shampoo 00:00: [place] 00 as needed Medical for Branch Itching. triamcinolo 2023-0 Yes [id number] Apply to Univers ne 4-05 area(s) 2 ity of acetonide 00:00: (two) [place] 0.1 % cream 00 times Medical daily. Branch ketoconazol 2023-0 Yes [id number] Apply to Univers e 2 % 4-05 area(s) ity of shampoo 00:00: once [place] 00 as needed Medical for Branch Itching. triamcinolo 2023-0 Yes [id number] Apply to Univers ne 4-05 area(s) 2 ity of acetonide 00:00: (two) [place] 0.1 % cream 00 times Medical daily. Branch ketoconazol 2023-0 Yes [id number] Apply to Univers e 2 % 4-05 area(s) ity of shampoo 00:00: once [place] 00 as needed Medical for Branch Itching. triamcinolo 2023-0 Yes [id number] Apply to Univers ne 4-05 area(s) 2 ity of acetonide 00:00: (two) [place] 0.1 % cream 00 times Medical daily. Branch ketoconazol 2023-0 Yes [id number] Apply to Univers e 2 % 4-05 area(s) ity of shampoo 00:00: once daily [place] 00 as needed Medical for Branch Itching. triamcinolo 2023-0 Yes [id number] Apply to Univers ne 4-05 area(s) 2 ity of acetonide 00:00: (two) [place] 0.1 % cream 00 times Medical daily. Branch ketoconazol 2023-0 Yes [id number] Apply to Univers e 2 % 4-05 area(s) ity of shampoo 00:00: once [place] 00 as needed Medical for Branch Itching. triamcinolo 2023-0 Yes [id number] Apply to Univers ne 4-05 area(s) 2 ity of acetonide 00:00: (two) [place] 0.1 % cream 00 times Medical daily. Branch ondansetron 2023-0 Yes [id number] 4mg Take 1 Univers 4 mg tablet 3-31 tablet by ity of 00:00: mouth [place] 00 every 12 Medical (twelve) Branch hours. ondansetron 2023-0 Yes [id number] 4mg Take 1 Univers 4 mg tablet 3-31 tablet by ity of 00:00: mouth [place] 00 every 12 Medical (twelve) Branch hours. ondansetron 2023-0 Yes [id number] 4mg Take 1 Univers 4 mg tablet 3-31 tablet by ity of 00:00: mouth [place] 00 every 12 Medical (twelve) Branch hours. ondansetron 2023-0 Yes [id number] 4mg Take 1 Univers 4 mg tablet 3-31 tablet by ity of 00:00: mouth [place] 00 every 12 Medical (twelve) Branch hours. ondansetron 2023-0 Yes [id number] 4mg Take 1 [facility] 4 mg tablet 3-31 tablet by ity of 00:00: mouth [place] 00 every 12 Medical (twelve) Branch hours. ondansetron 2023-0 2023- No [id number] 4mg Take 1 [facility] 4 mg tablet 3-31 04-07 tablet by it y of 00:00: 00:00 mouth [place] 00 :00 every 12 Medical (twelve) Branch hours. ondansetron 2023-0 2023- No [id number] 4mg Take 1 [facility] 4 mg tablet 3-31 04-07 tablet by it y of 00:00: 00:00 mouth [place] 00 :00 every 12 Medical (twelve) Branch hours. clindamycin 3-0 Yes Topical, Un evon (CLEOCIN T) 3-23 BID, First it y of 1 % topical 01:00: dose on [place] solution Sat [facility] 01/02/23 at Branch 1999, Until Discontinu ed, Routine fluocinolon 3-0 Yes Topical, Un evon e (SYNALAR) 3-23 BID, First it y of 0.01 % 01:00: dose on [place] solution Sat01/02/23 at Branch 1999, Until Discontinu ed, Routine traMADoL 2022-0 Yes 50mg 50 mg, Univers (ULTRAM) 3-22 Oral, ity of tablet 50 18:13: Q6HPRN, [place] mg 01 Starting Medical on Sat [place] 01/02/23 at 1313, Until Discontinu ed, Routine, Pain (scale 4-6) aspirin/steve 2022-0 202- No Take by Un evon icylamide/c 01-02- mouth 2 ity of affeine (BC 15:08: 00:00 (two) [place] HEAD[place]HE 28 :00 times Medical POWDER daily. Branch ORAL) aspirin/steve 2022-0 2023- No Take by Un evon icylamide/c 01-02- mouth 2 ity of affeine (BC 15:08: 00:00 (two) [place] HEAD[place]HE 28 :00 times Medical POWDER daily. Branch ORAL) aspirin/steve 2022-0 202- No Take by Un evon icylamide/c 01-02- mouth 2 ity of affeine (BC 15:08: 00:00 (two) [place] HEAD[place]HE 28 :00 times Medical POWDER daily. Branch ORAL) aspirin/steve 2022-0 202- No Take by Un evon icylamide/c 01-02- mouth 2 ity of affeine (BC 15:08: 00:00 (two) [place] HEAD[place]HE 28 :00 times Medical POWDER daily. Branch ORAL) aspirin/steve 2022-0 2022- No Take by Un evon icylamide/c 01-02 mouth 2 ity of affeine (BC 15:08: 00:00 (two) [place] HEAD[place]HE 28 :00 times Medical POWDER daily. Branch ORAL) polyethylen 2022-0 Yes 17g 17 g, Unive rs e glycol - Oral, ity of 3350 powder 14:00: DAILY, [place] 17 g 00 First dose Medical on Sat01/02/23 at 0900, Until Discontinu ed, Routine polyethylen 2022-0 Yes 17g 17 g, Unive rs e glycol -22 Oral, ity of 3350 powder 14:00: DAILY, [place] 17 g 00 First dose Medical on Sat01/02/23 at 0900, Until Discontinu ed, Routine alum-mag 2022-0 Yes 30mL 30 mL, [facility] hydroxide-s - Oral, BID, it y of imeth 13:15: First dose [place] (MAALOX 00 (after Medical PLUS / last Branch MAG-AL modificati PLUS) on) on Sat 200-200-20 3/22/23 at mg/5 mL 0815, suspension Until 30 mL Discontinu ed, Routine alum-mag 2022-0 Yes 30mL 30 mL, [facility] hydroxide-s 01-02 Oral, BID, it y of imeth 13:15: First dose [place] (MAALOX 00 (after Medical PLUS / last Branch MAG-AL modificati PLUS) on) on Sat 200-200-20 01/02/23 at mg/5 mL 0815, suspension Until 30 mL Discontinu ed, Routine KCL 2022-0 202- No 40meq 40 mEq, Univers (KLOR-CON 01-0222 Oral, ity of M20) tablet 13:15: 12:47 ONCE, 1 [place] 40 mEq 00 :00 dose, On Medical Sat01/02/23 at 0815, Routine aspirin/steve 0 Yes Take by Uni vers icylamide/c 01-02 mouth 2 ity o f affeine (BC 09:16: (two) [place] HEADACHE 18 times Medical POWDER daily. Branch ORAL) alum-mag 2022-0 2022- No 30mL 30 mL, Univer s hydroxide-s 01-02-22 Oral, ity of imeth 08:53: 13:10 Q6HPRN, [place] (MAALOX 04 :22 Starting Medical PLUS / [...] Branch 1999, Until Discontinu ed, Routine pantoprazol 2022-0 Yes 40mg 40 mg, Univ ers e -22 Oral, BID, ity of (PROTONIX) 01:00: First dose [place] EC tablet 00 on e Medical 40 mg 01/01/23 at [place] 1999, Until Discontinu ed, Routine ondansetron 2022-0 Yes [id number] 4mg Take 1 [facility] 4 mg tablet 01-02 tablet by ity of 00:00: mouth [place] 00 every 12 Medical (twelve) Branch hours. ondansetron 2023-0 Yes [id number] 4mg Take 1 [facility] 4 mg tablet 3-22 tablet by ity of 00:00: mouth [place] 00 every 12 Medical (twelve) Branch hours. pantoprazol 2023-0 Yes [id number] 40mg Take 1 Univers e 40 mg EC 3-22 tablet by ity of tablet 00:00: mouth in [place] 00 the Medical morning Branch and 1 tablet in the evening. ondansetron 2023-0 Yes [id number] 4mg Take 1 [facility] 4 mg tablet 3-22 tablet by ity of 00:00: mouth [place] 00 every 12 Medical (twelve) Branch hours. pantoprazol 2023-0 Yes [id number] 40mg Take 1 Univers e 40 mg EC 3-22 tablet by ity of tablet 00:00: mouth in [place] 00 the Medical morning Branch and 1 tablet in the evening. ondansetron 2023-0 Yes [id number] 4mg Take 1 [facility] 4 mg tablet 3-22 tablet by ity of 00:00: mouth [place] 00 every 12 Medical (twelve) Branch hours. pantoprazol 2023-0 Yes [id number] 40mg Take 1 [facility] e 40 mg EC 3-22 tablet by ity of tablet 00:00: mouth in [place] 00 the Medical morning Branch and 1 tablet in the evening. ondansetron 2023-0 Yes [id number] 4mg Take 1 [facility] 4 mg tablet 3-22 tablet by ity of 00:00: mouth [place] 00 every 12 Medical (twelve) Branch hours. pantoprazol 2023-0 Yes [id number] 40mg Take 1 [facility] e 40 mg EC 3-22 tablet by ity of tablet 00:00: mouth in [place] 00 the Medical morning Branch and 1 tablet in the evening. pantoprazol 2023-0 Yes [id number] 40mg Take 1 [facility] e 40 mg EC 3-22 tablet by ity of tablet 00:00: mouth in [place] 00 the Medical morning Branch and 1 tablet in the evening. pantoprazol 2023-0 Yes [id number] 40mg Take 1 [facility] e 40 mg EC 3-22 tablet by ity of tablet 00:00: mouth in [place] 00 the Medical morning Branch and 1 tablet in the evening. pantoprazol 2023-0 Yes [id number] 40mg Take 1 [facility] e 40 mg EC 3-22 tablet by ity of tablet 00:00: mouth in [place] [address] the Medical morning Branch and 1 tablet in the evening. pantoprazol 2023-0 Yes [id number] 40mg Take 1 [facility] e 40 mg EC 3-22 tablet by ity of tablet 00:00: mouth in [place] [address] the Medical morning Branch and 1 tablet in the evening. pantoprazol 2023-0 Yes [id number] 40mg Take 1 [facility] e 40 mg EC 3-22 tablet by ity of tablet 00:00: mouth in [place] [address] the Medical morning Branch and 1 tablet in the evening. pantoprazol 2023-0 Yes [id number] 40mg Take 1 [facility] e 40 mg EC 3-22 tablet by ity of tablet 00:00: mouth in [place] [address] the Medical morning Branch and 1 tablet in the evening. pantoprazol 2023-0 Yes [id number] 40mg Take 1 Univers e 40 mg EC 3-22 tablet by ity of tablet 00:00: mouth in [place] [address] the Medical morning Branch and 1 tablet in the evening. pantoprazol 2023-0 Yes [id number] 40mg Take 1 Univers e 40 mg EC 3-22 tablet by ity of tablet 00:00: mouth in [place] [address] the Medical morning Branch and 1 tablet in the evening. pantoprazol 2023-0 Yes [id number] 40mg Take 1 Univers e 40 mg EC 3-22 tablet by ity of tablet 00:00: mouth in [place] [address] the Medical morning Branch and 1 tablet in the evening. pantoprazol 2023-0 Yes [id number] 40mg Take 1 [facility] e 40 mg EC 3-22 tablet by ity of tablet 00:00: mouth in [place] [address] the Medical morning Branch and 1 tablet in the evening. pantoprazol 2023-0 Yes [id number] 40mg Take 1 [facility] e 40 mg EC 3-22 tablet by ity of tablet 00:00: mouth in [place] [address] the Medical morning Branch and 1 tablet in the evening. pantoprazol 2023-0 Yes [id number] 40mg Take 1 [facility] e 40 mg EC 3-22 tablet by ity of tablet 00:00: mouth in [place] [address] the Medical morning Branch and 1 tablet in the evening. pantoprazol 2023-0 Yes [id number] 40mg Take 1 [facility] e 40 mg EC 3-22 tablet by ity of tablet 00:00: mouth in [place] [address] the Medical morning Branch and 1 tablet in the evening. pantoprazol 2023-0 Yes [id number] 40mg Take 1 [facility] e 40 mg EC 3-22 tablet by ity of tablet 00:00: mouth in [place] 00 the Medical morning Branch and 1 tablet in the evening. pantoprazol 2023-0 Yes [id number] 40mg Take 1 [facility] e 40 mg EC 3-22 tablet by ity of tablet 00:00: mouth in [place] 00 the Medical morning Branch and 1 tablet in the evening. pantoprazol 2023-0 Yes [id number] 40mg Take 1 [facility] e 40 mg EC 3-22 tablet by ity of tablet 00:00: mouth in [place] 00 the Medical morning Branch and 1 tablet in the evening. pantoprazol 2023-0 Yes [id number] 40mg Take 1 [facility] e 40 mg EC 3-22 tablet by ity of tablet 00:00: mouth in [place] 00 the Medical morning Branch and 1 tablet in the evening. pantoprazol 2023-0 Yes [id number] 40mg Take 1 Univers e 40 mg EC 3-22 tablet by ity of tablet 00:00: mouth in [place] 00 the Medical morning Branch and 1 tablet in the evening. pantoprazol 3-0 3- No [id number] 40mg Take 1 [facility] e 40 mg EC 3-22 08-30 tablet by ity of tablet 00:00: 00:00 mouth in [place] 00 :00 the Medical morning Branch and 1 tablet in the evening. ondansetron 3-0 3- No [id number] 4mg Take 1 [facility] 4 mg tablet 01-02- tablet by it y of 00:00: 00:00 mouth [place] 00 :00 every 12 Medical (twelve) Branch hours. ondansetron 3-0 3- No [id number] 4mg Take 1 [facility] 4 mg tablet 01-02- tablet by it y of 00:00: 00:00 mouth [place] 00 :00 every 12 Medical (twelve) Branch hours. ondansetron 2023-0 3- No [id number] 4mg Take 1 [facility] 4 mg tablet 01-02- tablet by it y of 00:00: 00:00 mouth [place] 00 :00 every 12 Medical (twelve) Branch [...] Sat12/31/22 at 2000, Until Discontinu ed nicotine 0 Yes 1{patch 1 Patch, Un evon (NICODERM) 3-20 } Topical, ity o f 7 mg/24 hr 21:00: Administer [place] patch 1 00 over 24 Medical Patch Hours, Branch Q24H, First dose on Sat12/31/22 at 1600, Until Discontinu ed, Routine nicotine 0 Yes 1{patch 1 Patch, Un evon (NICODERM) 3-20 } Topical, ity o f 7 mg/24 hr 21:00: Administer [place] patch 1 00 over 24 Medical Patch Hours, Branch Q24H, First dose on Sat12/31/22 at 1600, Until Discontinu ed, Routine HYDROcodone Yes 1{tbl} 1 tablet, Univers -acetaminop 3-20 Oral, ity of hen (NORCO 16:49: Q6HPRN, [place] 5) 5-325 mg 43 Starting Medi [place] tablet 1 on Sat Branch tablet 12/31/22 at 1149, Until Discontinu ed, Routine, Pain (scale 4-6) HYDROcodone Yes 1{tbl} 1 tablet, Univers -acetaminop 3-20 Oral, ity of hen (NORCO 16:49: Q6HPRN, [place] 5) 5-325 mg 43 Starting Medi w[place] tablet 1 on Sat Branch tablet 12/31/22 at 1149, Until Discontinu ed, Routine, Pain (scale 4-6) lactated 2022- No 1000mL at 42 Unive rs ringers IV 12-31- mL/hr, ity of infusion 15:30: 22:03 1,000 mL, [place] 1,000 mL 00 :36 IV Medical Infusion, Branch CONTINUOUS , Starting on Sat12/31/22 at 1030, Until Sat01/01/23 at 1703, Routine calcium 2022- No 2g 2 g, IV Univer s gluconate 2 12-31 Infusion, it y of g in NaCl 12:00: 16:25 at 200 [place] 100 mL 00 :00 mL/hr Medical (ISO-OSM) Administer [place] RTU IV over 30 infusion 2 Minutes, g ONCE, 1 dose, On Sat12/31/22 at 0700, Routine morpHINE (2 2022- No 4mg 4 mg, Slow Univers mg/mL) 12-31 IV Push, ity of injection 4 11:08: 18:51 Q4HPRN, [place] mg 04 :43 Starting Medical on Sat Branch 12/31/22 at 0608, Until Sat01/01/23 at 1351, Routine, [place] pain potassium 2022-2022- No 20mmol 20 mmol, U nivers phosphate 12-31 IV ity of 20 mmol in 07:15: 13:24 Piggyback, [place] NaCl 0.9% 00 :00 ONCE, 1 Medical [...] Medical Infusion, Branch CONTINUOUS , Starting on [place] 12/30/22 at 2315, Until Sat12/31/22 at 1017, Routine morpHINE (2 2022- No 2mg 2 mg, Slow Univers mg/mL) 12-31 IV Push, ity of injection 2 03:59: 11:09 Q4HPRN, [place] mg 50 :30 Starting Medical on [facility] 12/30/22 at 2259, Until Sat12/31/22 at 0609, Routine, [place] pain acetaminoph 2022- No 749mg 749 mg, IV Univers en ADULT 12-31 Infusion, ity o f (OFIRMEV) 03:59: 19:50 at 299.6 [place] as injection 13 :46 mL/hr Medical 749 mg Administer Branch over 15 Minutes, Q8HPRN, Starting on [place] 12/30/22 at 2259, Until Sat12/31/22 at 1450, Routine, Pain (scale 1-3)
In dication: Non-periop erative Patient
Approved by: Per Policy (NPO Status) ondansetron 2022-0 Yes 4mg 4 mg, Slow Univers (ZOFRAN 3-20 IV Push, ity of (PF)) 03:57: Q6HPRN, [place] injection 4 56 Starting Medi wanda mg on [facility] 12/30/22 at 2257, Until Discontinu ed, Routine, Nausea and Vomiting (N/V) ondansetron 2022-0 Yes 4mg 4 mg, Slow Univers (ZOFRAN 3-20 IV Push, ity of (PF)) 03:57: Q6HPRN, [place] injection 4 56 Starting Medi wanda mg on [place] Branch 12/30/22 at 2257, Until Discontinu ed, Routine, Nausea and Vomiting (N/V) FENTanyl PF 2022- No 50ug 50 mcg, Un evon (SUBLIMAZE 12-31 Slow IV ity o f (PF)) 02:36: 02:37 Push, [place] injection 00 :00 ONCE, 1 Medical 50 mcg dose, On Branch [place] 12/30/22 at 2145, Routine iopamidol 2022- No [id number] 100mL 100 mL, Univers (ISOVUE 12-31 Intravenou ity o f 370-500 mL) 02:15: 02:15 s, ONCE, 1 [place] injection 00 :00 dose, On Medica l 100 mL [place] Branch 12/30/22 at 2115, Routine pantoprazol 2022- No 8mg/h 8 mg/hr U nivers e 12-30 (50 ity of (PROTONIX) 23:45: 04:02 mL/hr), IV [place] 80 mg in 00 :21 Infusion, Medica l NaCl 0.9% CONTINUOUS Bran ch (NS) 500 mL , Starting infusion on [place] 12/30/22 at 1845 pantoprazol 2022- No 80mg 80 mg, IV Univers e 12-30 Push, ity of (PROTONIX) 23:30: 23:32 ONCE, 1 [place] 80 mg in 00 :00 dose, On Medical NaCl 0.9% [place] Branch (NS) 20 mL 12/30/22 at syringe 1830, Administer over 2 Minutes, 20 mL NaCl 0.9% 2022- No 1000mL at 999 Uni vers (NS) bolus 12-30 mL/hr, ity of infusion 23:15: 01:23 1,000 mL, [place] 1,000 mL 00 :00 IV Medical Infusion, Branch ONCE, 1 dose, On [place] 12/30/22 at 1815, JESSICA ondansetron 2022- No [...] Sun Branch 12/30/22 at 1745, STAT pantoprazol 0 Yes [id number] 40mg Take 1 Univers e 40 mg EC 2-24 tablet by ity of tablet 00:00: mouth [place] 00 every Medical morning Branch and evening. pantoprazol 0 Yes [id number] 40mg Take 1 Univers e 40 mg EC 2-24 tablet by ity of tablet 00:00: mouth [place] 00 every Medical morning Branch and evening. pantoprazol 2022-0 2022- No [id number] 40mg Take 1 [facility] e 40 mg EC 2-24 01-02 tablet by ity of tablet 00:00: 00:00 mouth [place] 00 :00 every Medical morning Branch and evening. doxepin 50 Yes [id number] 50mg Take 1 [facility] mg capsule 2-17 capsule by ity of 00:00: mouth at [place] 00 bedtime. Medical Branch pantoprazol 0 Yes [id number] 40mg Take 1 [facility] e 40 mg EC 2-17 tablet by ity of tablet 00:00: mouth [place] 00 every Medical morning Branch and evening. docusate Yes [id number] 100mg Take 1 Un evon (COLACE) 2-17 capsule by ity o f 100 mg 00:00: mouth in [place] capsule 00 the Medical morning. Branch doxepin 50 Yes [id number] 50mg Take 1 [facility] mg capsule 2-17 capsule by ity of 00:00: mouth at [place] 00 bedtime. Medical Branch pantoprazol Yes [id number] 40mg Take 1 [facility] e 40 mg EC 2-17 tablet by ity of tablet 00:00: mouth [place] 00 every Medical morning Branch and evening. docusate Yes [id number] 100mg Take 1 Un evon (COLACE) 2-17 capsule by ity o f 100 mg 00:00: mouth in [place] capsule 00 the Medical morning. Branch doxepin 50 2022-0 Yes [id number] 50mg Take 1 [facility] mg capsule 2-17 capsule by ity of 00:00: mouth at [place] 00 bedtime. Medical Branch docusate 2022-0 Yes [id number] 100mg Take 1 Un evon (COLACE) 2-17 capsule by ity o f 100 mg 00:00: mouth in [place] capsule 00 the Medical morning. Branch doxepin 50 0 Yes [id number] 50mg Take 1 [facility] mg capsule 2-17 capsule by ity of 00:00: mouth at [place] 00 bedtime. Medical Branch docusate 0 Yes [id number] 100mg Take 1 Un evon (COLACE) 2-17 capsule by ity o f 100 mg 00:00: mouth in [place] capsule 00 the Medical morning. Branch doxepin 50 0 Yes [id number] 50mg Take 1 [facility] mg capsule 2-17 capsule by ity of 00:00: mouth at [place] 00 bedtime. Medical Branch docusate 0 Yes [id number] 100mg Take 1 Un evon (COLACE) 2-17 capsule by ity o f 100 mg 00:00: mouth in [place] capsule 00 the Medical morning. Branch doxepin 50 0 Yes [id number] 50mg Take 1 [facility] mg capsule 2-17 capsule by ity of 00:00: mouth at [place] 00 bedtime. Medical Branch docusate 2022-0 Yes [id number] 100mg Take 1 Un evon (COLACE) 2-17 capsule by ity o f 100 mg 00:00: mouth in [place] capsule the Medical morning. Branch doxepin 50 0 Yes [id number] 50mg Take 1 [facility] mg capsule 2-17 capsule by ity of 00:00: mouth at [place] 00 bedtime. Medical Branch docusate 2022-0 Yes [id number] 100mg Take 1 Un evon (COLACE) 2-17 capsule by ity o f 100 mg 00:00: mouth in [place] capsule 00 the Medical morning. Branch doxepin 50 2022-0 Yes [id number] 50mg Take 1 [facility] mg capsule 2-17 capsule by ity of 00:00: mouth at [place] 00 bedtime. Medical Branch docusate 2023-0 Yes [id number] 100mg Take 1 Un evon (COLACE) 2-17 capsule by ity o f 100 mg 00:00: mouth in [place] capsule 00 the Medical morning. Branch doxepin 50 0 Yes [id number] 50mg Take 1 [facility] mg capsule 2-17 capsule by ity of 00:00: mouth at [place] 00 bedtime. Medical Branch docusate Yes [id number] 100mg Take 1 Un evon (COLACE) 2-17 capsule by ity o f 100 mg 00:00: mouth in [place] capsule 00 the Medical morning. Branch doxepin 50 Yes [id number] 50mg Take 1 [facility] mg capsule 2-17 capsule by ity of 00:00: mouth at [place] 00 bedtime. Medical Branch docusate Yes [id number] 100mg Take 1 Un evon (COLACE) 2-17 capsule by ity o f 100 mg 00:00: mouth in [place] capsule 00 the morning. Branch doxepin 50 Yes [id number] 50mg Take 1 [facility] mg capsule 2-17 capsule by ity of 00:00: mouth at [place] 00 bedtime. Medical Branch docusate Yes [id number] 100mg Take 1 Un evon (COLACE) 2-17 capsule by ity o f 100 mg 00:00: mouth in [place] capsule 00 the Medical morning. Branch doxepin 50 Yes [id number] 50mg Take 1 [facility] mg capsule 2-17 capsule by ity of 00:00: mouth at [place] 00 bedtime. Medical Branch docusate Yes [id number] 100mg Take 1 Un evon (COLACE) 2-17 capsule by ity o f 100 mg 00:00: mouth in [place] capsule 00 the Medical morning. Branch doxepin 50 0 Yes [id number] 50mg Take 1 [facility] mg capsule 2-17 capsule by ity of 00:00: mouth at [place] 00 bedtime. Medical Branch docusate Yes [id number] 100mg Take 1 Un evon (COLACE) 2-17 capsule by ity o f 100 mg 00:00: mouth in [place] capsule 00 the Medical morning. Branch doxepin 50 Yes [id number] 50mg Take 1 [facility] mg capsule 2-17 capsule by ity of 00:00: mouth at [place] 00 bedtime. Medical Branch docusate 0 Yes [id number] 100mg Take 1 Un evon (COLACE) 2-17 capsule by ity o f 100 mg 00:00: mouth in [place] capsule 00 the Medical morning. Branch doxepin 50 0 Yes [id number] 50mg Take 1 [facility] mg capsule 2-17 capsule by ity of 00:00: mouth at [place] 00 bedtime. Medical Branch docusate Yes [id number] 100mg Take 1 Un evon (COLACE) 2-17 capsule by ity o f 100 mg 00:00: mouth in [place] capsule 00 the Medical morning. Branch doxepin 50 0 Yes [id number] 50mg Take 1 [facility] mg capsule 2-17 capsule by ity of 00:00: mouth at [place] 00 bedtime. Medical Branch docusate Yes [id number] 100mg Take 1 Un evon (COLACE) 2-17 capsule by ity o f 100 mg 00:00: mouth in [place] capsule the Medical morning. Branch doxepin 50 Yes [id number] 50mg Take 1 Univers mg capsule 2-17 capsule by ity of 00:00: mouth at [place] 00 bedtime. Medical Branch docusate 0 Yes [id number] 100mg Take 1 Un evon (COLACE) 2-17 capsule by ity o f 100 mg 00:00: mouth in [place] capsule the morning. Branch doxepin 50 0 Yes [id number] 50mg Take 1 [facility] mg capsule 2-17 capsule by ity of 00:00: mouth at [place] 00 bedtime. Medical Branch docusate Yes [id number] 100mg Take 1 Un evon (COLACE) 2-17 capsule by ity o f 100 mg 00:00: mouth in [place] capsule 00 the Medical morning. Branch doxepin 50 0 Yes [id number] 50mg Take 1 [facility] mg capsule 2-17 capsule by ity of 00:00: mouth at [place] 00 bedtime. Medical Branch doxepin 50 0 Yes [id number] 50mg Take 1 [facility] mg capsule 2-17 capsule by ity of 00:00: mouth at [place] 00 bedtime. Medical Branch doxepin 50 2022-0 Yes [id number] 50mg Take 1 [facility] mg capsule 2-17 capsule by ity of 00:00: mouth at [place] 00 bedtime. Medical Branch doxepin 50 2022-0 Yes [id number] 50mg Take 1 [facility] mg capsule 2-17 capsule by ity of 00:00: mouth at [place] 00 bedtime. Medical Branch doxepin 50 2022-0 Yes [id number] 50mg Take 1 [facility] mg capsule 2-17 capsule by ity of 00:00: mouth at [place] 00 bedtime. Medical Branch doxepin 50 2022-0 Yes [id number] 50mg Take 1 [facility] mg capsule 2-17 capsule by ity of 00:00: mouth at [place] [address] bedtime. Medical Branch doxepin 50 2022-0 Yes [id number] 50mg Take 1 [facility] mg capsule 2-17 capsule by ity of 00:00: mouth at [place] 00 bedtime. Medical Branch doxepin 50 2022-0 2022- No [id number] 50mg Take 1 [facility] mg capsule 2-17 -17 capsule by it y of 00:00: 00:00 mouth at [place] 00 :00 bedtime. Medical Branch docusate 2022-0 2022- No [id number] 100mg Take 1 U nivers (COLACE) 2-17 -17 capsule by ity of 100 mg 00:00: 00:00 mouth in [place] capsule 00 :00 the Medical morning. Branch clindamycin 2022-0 2022- No [id number] 300mg Take 1 [facility] 300 mg 2-17 -25 capsule by ity of capsule 00:00: 05:59 mouth in [place] 00 :00 the Medical morning Branch and 1 capsule at noon and 1 capsule in the evening. Do all this for 7 days. clindamycin 2022-0 2022- No [id number] 300mg Take 1 [facility] 300 mg 2-17 -25 capsule by ity of capsule 00:00: 05:59 mouth in [place] 00 :00 the Medical morning Branch and 1 capsule at noon and 1 capsule in the evening. Do all this for 7 days. clindamycin 2022-0 2022- No [id number] 300mg Take 1 [facility] 300 mg 2-17 -25 capsule by ity of capsule 00:00: 05:59 mouth in [place] 00 :00 the Medical morning Branch and 1 capsule at noon and 1 capsule in the evening. Do all this for 7 days. pantoprazol 2022- No [id number] 40mg Take 1 Univers e 40 mg EC 2-17 -24 tablet by ity of tablet 00:00: 00:00 mouth [place] 00 :00 every Medical morning Branch and evening. naproxen 2021-10 Yes [id number] TAKE 1 [facility] 500 mg 2-29 [id number] TABLET BY ity of tablet 00:00: MOUTH [place] 00 TWICE Medical DAILY Branch NEEDED FOR MODERATE PAIN. Use sparingly due to side effects ergocalcife 2021-10 Yes [id number] Take 1 [facility] rol, 2-29 capsule by ity of vitamin d2, 00:00: mouth [place] 1,250 mcg 00 weekly. Medical (50,000 Branch unit) capsule naproxen 2021-10 Yes [id number] TAKE 1 [facility] 500 mg 2-29 [id number] TABLET BY ity of tablet 00:00: MOUTH [place] 00 TWICE Medical DAILY Branch NEEDED FOR MODERATE PAIN. Use sparingly due to side effects ergocalcife 2021-10 Yes [id number] Take 1 [facility] rol, 2-29 capsule by ity of vitamin d2, 00:00: mouth [place] 1,250 mcg 00 weekly. Medical (50,000 Branch unit) capsule naproxen 2021-10 Yes [id number] TAKE 1 [facility] 500 mg 2-29 [id number] TABLET BY ity of tablet 00:00: MOUTH [place] 00 TWICE Medical DAILY Branch NEEDED FOR MODERATE PAIN. Use sparingly due to side effects ergocalcife 2021-10 Yes [id number] Take 1 [facility] rol, 2-29 capsule by ity of vitamin d2, 00:00: mouth [place] 1,250 mcg 00 weekly. Medical (50,000 Branch unit) capsule naproxen 2021-10 Yes [id number] TAKE 1 [facility] 500 mg 2-29 [id number] TABLET BY ity of tablet 00:00: MOUTH [place] 00 TWICE Medical DAILY Branch NEEDED FOR MODERATE PAIN. Use sparingly due to side effects ergocalcife 2021-10 Yes [id number] Take 1 [facility] rol, 2-29 capsule by ity of vitamin d2, 00:00: mouth [place] 1,250 mcg 00 weekly. Medical (50,000 Branch unit) capsule ergocalcife 2021- Yes [id number] Take 1 [facility] rol, 2-29 capsule by ity of vitamin d2, 00:00: mouth [place] 1,250 mcg 00 weekly. Medical (50,000 Branch unit) capsule ergocalcife 2021-10 Yes [id number] Take 1 [facility] rol, 2-29 capsule by ity of vitamin d2, 00:00: mouth [place] 1,250 mcg 00 weekly. Medical (50,000 Branch unit) capsule ergocalcife 2021-10 Yes [id number] Take 1 [facility] rol, 2-29 capsule by ity of vitamin d2, 00:00: mouth [place] 1,250 mcg 00 weekly. Medical (50,000 Branch unit) capsule ergocalcife 2021-10 Yes [id number] Take 1 [facility] rol, 2-29 capsule by ity of vitamin d2, 00:00: mouth [place] 1,250 mcg 00 weekly. Medical (50,000 Branch unit) capsule ergocalcife 2021- Yes [id number] Take 1 [facility] rol, 2-29 capsule by ity of vitamin d2, 00:00: mouth [place] 1,250 mcg 00 weekly. Medical (50,000 Branch unit) capsule ergocalcife 2021-10 Yes [id number] Take 1 [facility] rol, 2-29 capsule by ity of vitamin d2, 00:00: mouth [place] 1,250 mcg 00 weekly. Medical (50,000 Branch unit) capsule ergocalcife 2021-10 Yes [id number] Take 1 [facility] rol, 2-29 capsule by ity of vitamin d2, 00:00: mouth [place] 1,250 mcg 00 weekly. Medical (50,000 Branch unit) capsule ergocalcife 2021-10 Yes [id number] Take 1 [facility] rol, 2-29 capsule by ity of vitamin d2, 00:00: mouth [place] 1,250 mcg 00 weekly. Medical (50,000 Branch unit) capsule ergocalcife 2021-10 Yes [id number] Take 1 [facility] ro[facility], 2-29 capsule by [facility] of vitamin d2, 00:00: mouth [place] 1,250 mcg 00 weekly. Medical (50,000 Branch unit) capsule ergocalcife 2021- Yes [id number] Take 1 [facility] rol, 2-29 capsule by ity of vitamin d2, 00:00: mouth [place] 1,250 mcg 00 weekly. Medical (50,000 Branch unit) capsule ergocalcife 2021- Yes [id number] Take 1 [facility] rol, 2-29 capsule by ity of vitamin d2, 00:00: mouth [place] 1,250 mcg 00 weekly. Medical (50,000 Branch unit) capsule ergocalcife 2021- Yes [id number] Take 1 [facility] rol, 2-29 capsule by ity of vitamin d2, 00:00: mouth [place] 1,250 mcg 00 weekly. Medical (50,000 Branch unit) capsule ergocalcife 2021-10 Yes [id number] Take 1 [facility] rol, 2-29 capsule by ity of vitamin d2, 00:00: mouth [place] 1,250 mcg 00 weekly. Medical (50,000 Branch unit) capsule ergocalcife 2021- Yes [id number] Take 1 [facility] rol, 2-29 capsule by ity of vitamin d2, 00:00: mouth [place] 1,250 mcg 00 weekly. Medical (50,000 Branch unit) capsule ergocalcife 2021-10 Yes [id number] Take 1 [facility] rol, 2-29 capsule by ity of vitamin d2, 00:00: mouth [place] 1,250 mcg 00 weekly. Medical (50,000 Branch unit) capsule ergocalcife 2021-10 Yes [id number] Take 1 [facility] rol, 2-29 capsule by ity of vitamin d2, 00:00: mouth [place] 1,250 mcg 00 weekly. Medical (50,000 Branch unit) capsule ergocalcife 2021- Yes [id number] Take 1 [facility] rol, 2-29 capsule by ity of vitamin d2, 00:00: mouth [place] 1,250 mcg 00 weekly. Medical (50,000 Branch unit) capsule ergocalcife 2021- Yes [id number] Take 1 [facility] rol, 2-29 capsule by ity of vitamin d2, 00:00: mouth [place] 1,250 mcg 00 weekly. Medical (50,000 Branch unit) capsule ergocalcife 2021- Yes [id number] Take 1 [facility] rol, 2-29 capsule by ity of vitamin d2, 00:00: mouth [place] 1,250 mcg 00 weekly. Medical (50,000 Branch unit) capsule ergocalcife 2021- Yes [id number] Take 1 [facility] rol, 2-29 capsule by ity of vitamin d2, 00:00: mouth [place] 1,250 mcg 00 weekly. Medical (50,000 Branch unit) capsule ergocalcife 2021- Yes [id number] Take 1 [facility] rol, 2-29 capsule by ity of vitamin d2, 00:00: mouth [place] 1,250 mcg 00 weekly. Medical (50,000 Branch unit) capsule ergocalcife 2021- Yes [id number] Take 1 [facility] rol, 2-29 capsule by ity of vitamin d2, 00:00: mouth [place] 1,250 mcg 00 weekly. Medical (50,000 Branch unit) capsule ergocalcife 2021- Yes [id number] Take 1 [facility] rol, 2-29 capsule by ity of vitamin d2, 00:00: mouth [place] 1,250 mcg 00 weekly. Medical (50,000 Branch unit) capsule ergocalcife 2021- Yes [id number] Take 1 [facility] rol, 2-29 capsule by ity of vitamin d2, 00:00: mouth [place] 1,250 mcg 00 weekly. Medical (50,000 Branch unit) capsule ergocalcife 2021-10 Yes [id number] Take 1 [facility] rol, 2-29 capsule by ity of vitamin d2, 00:00: mouth [place] 1,250 mcg 00 weekly. Medical (50,000 Branch unit) capsule ergocalcife 2021- Yes [id number] Take 1 [facility] rol, 2-29 capsule by ity of vitamin d2, 00:00: mouth [place] 1,250 mcg 00 weekly. Medical (50,000 Branch unit) capsule ergocalcife 2021- Yes [id number] Take 1 [facility] rol, 2-29 capsule by ity of vitamin d2, 00:00: mouth [place] 1,250 mcg 00 weekly. Medical (50,000 Branch unit) capsule ergocalcife 2021- Yes [id number] Take 1 [facility] rol, 2-29 capsule by ity of vitamin d2, 00:00: mouth [place] 1,250 mcg 00 weekly. Medical (50,000 Branch unit) capsule ergocalcife 2021- Yes [id number] Take 1 [facility] rol, 2-29 capsule by ity of vitamin d2, 00:00: mouth [place] 1,250 mcg 00 weekly. Medical (50,000 Branch unit) capsule ergocalcife 2021-10 Yes [id number] Take 1 [facility] rol, 2-29 capsule by ity of vitamin d2, 00:00: mouth [place] 1,250 mcg 00 weekly. Medical (50,000 Branch unit) capsule ergocalcife 2021-10 Yes [id number] Take 1 [facility] rol, 2-29 capsule by ity of vitamin d2, 00:00: mouth [place] 1,250 mcg 00 weekly. Medical (50,000 Branch unit) capsule ergocalcife 2021-10 Yes [id number] Take 1 [facility] rol, 2-29 capsule by ity of vitamin d2, 00:00: mouth [place] 1,250 mcg 00 weekly. Medical (50,000 Branch unit) capsule ergocalcife 2021-10 Yes [id number] Take 1 [facility] rol, 2-29 capsule by ity of vitamin d2, 00:00: mouth [place] 1,250 mcg 00 weekly. Medical (50,000 Branch unit) capsule ergocalcife 2021-10 Yes [id number] Take 1 [facility] rol, 2-29 capsule by ity of vitamin d2, 00:00: mouth [place] 1,250 mcg 00 weekly. Medical (50,000 Branch unit) capsule naproxen 2021-10- No [id number] TAKE 1 [facility] 500 mg 2-29 - [id number] TABLET BY ity of tablet 00:00: 00:00 MOUTH [place] 00 :00 TWICE Medical DAILY Branch NEEDED FOR MODERATE PAIN. Use sparingly due to side effects naproxen 2021-10- No [id number] TAKE 1 [facility] 500 mg 2-29 - [id number] TABLET BY ity of tablet 00:00: 00:00 MOUTH [place] 00 :00 TWICE Medical DAILY Branch NEEDED FOR MODERATE PAIN. Use sparingly due to side effects ergocalcife 2021-10 Yes [id number] Take 1 [facility] rol, 2-28 capsule by ity of vitamin d2, 00:00: mouth [place] 1,250 mcg 00 weekly. Medical (50,000 Branch unit) capsule ergocalcife 2021-10- No [id number] Take 1 [facility] rol, 210-11 capsule by ity of vitamin d2, 00:00: 00:00 mouth [place] 1,250 mcg 00 :00 weekly. Medical (50,000 Branch unit) capsule naproxen 2021-10 Yes [id number] TAKE 1 [facility] 500 mg 10-22 [id number] TABLET BY ity of tablet 00:00: MOUTH [place] 00 TWICE Medical DAILY Branch NEEDED FOR MODERATE PAIN. Use sparingly due to side effects naproxen 2021-10 Yes [id number] TAKE 1 [facility] 500 mg 10-22 [id number] TABLET BY ity of tablet 00:00: MOUTH [place] 00 TWICE Medical DAILY Branch NEEDED FOR MODERATE PAIN. Use sparingly due to side effects naproxen 2021-10 Yes [id number] TAKE 1 [facility] 500 mg 10-22 [id number] TABLET BY ity of tablet 00:00: MOUTH [place] 00 TWICE Medical DAILY Branch NEEDED FOR MODERATE PAIN. Use sparingly due to side effects naproxen 2021-10 Yes [id number] TAKE 1 [facility] 500 mg 10-22 [id number] TABLET BY ity of tablet 00:00: MOUTH [place] 00 TWICE Medical DAILY Branch NEEDED FOR MODERATE PAIN. Use sparingly due to side effects naproxen 2021-10- No [id number] TAKE 1 [facility] 500 mg 10-22 [id number] TABLET BY ity of tablet 00:00: 00:00 MOUTH [place] 00 :00 TWICE Medical DAILY Branch NEEDED FOR MODERATE PAIN. Use sparingly due to side effects polyethylen 2021-10 Yes [id number] 1{packe Take 1 [facility] e glycol 0-14 t} Packet by ity of 3350 17 00:00: mouth 2 [place] gram powder 00 (two) Medical times Branch daily as needed for Constipati on. pantoprazol 2021-10 Yes [id number] 40mg Take 1 [facility] e 40 mg EC 0-14 tablet by ity of tablet 00:00: mouth [place] 00 every Medical morning Branch and evening. docusate 2021-10 Yes [id number] 100mg Take 1 [facility] (COLACE) 0-14 capsule by ity o f 100 mg 00:00: mouth in [place] capsule 00 the Medical morning. Branch polyethylen 2021-10 Yes [id number] 1{packe Take 1 [facility] e glycol 0-14 t} Packet by ity of 3350 17 00:00: mouth 2 [place] gram powder 00 (two) Medical times Branch daily as needed for Constipati on. pantoprazol 2021-10 Yes [id number] 40mg Take 1 [facility] e 40 mg EC 0-14 tablet by ity of tablet 00:00: mouth [place] 00 every Medical morning Branch and evening. docusate 2021-10 Yes [id number] 100mg Take 1 [facility] (COLACE) 0-14 capsule by ity o f 100 mg 00:00: mouth in [place] capsule 00 the Medical morning. Branch polyethylen 2021-10 Yes [id number] 1{packe Take 1 [facility] e glycol 0-14 t} Packet by ity of 3350 17 00:00: mouth 2 [place] gram powder 00 (two) Medical times Branch daily as needed for Constipati on. pantoprazol 2021-10 Yes [id number] 40mg Take 1 [facility] e 40 mg EC 0-14 tablet by ity of tablet 00:00: mouth [place] 00 every Medical morning Branch and evening. docusate 2021-10 Yes [id number] 100mg Take 1 [facility] (COLACE) 0-14 capsule by ity o f 100 mg 00:00: mouth in [place] capsule 00 the Medical morning. Branch polyethylen 2021-10 Yes [id number] 1{packe Take 1 [facility] e glycol 0-14 t} Packet by ity of 3350 17 00:00: mouth 2 [place] gram powder 00 (two) Medical times Branch daily as needed for Constipati on. pantoprazol 2021-10 Yes [id number] 40mg Take 1 [facility] e 40 mg EC 0-14 tablet by ity of tablet 00:00: mouth [place] 00 every Medical morning Branch and evening. docusate 2021-10 Yes [id number] 100mg Take 1 [facility] (COLACE) 0-14 capsule by ity o f 100 mg 00:00: mouth in [place] capsule 00 the Medical morning. Branch polyethylen 2021-10 Yes [id number] 1{packe Take 1 [facility] e glycol 0-14 t} Packet by ity of 3350 17 00:00: mouth 2 [place] gram powder 00 (two) Medical times Branch daily as needed for Constipati on. pantoprazol 2021-10 Yes [id number] 40mg Take 1 [facility] e 40 mg EC 0-14 tablet by ity of tablet 00:00: mouth [place] 00 every Medical morning Branch and evening. docusate 2021-10 Yes [id number] 100mg Take 1 [facility] (COLACE) 0-14 capsule by ity o f 100 mg 00:00: mouth in [place] capsule 00 the Medical morning. Branch polyethylen 2021-10 Yes [id number] 1{packe Take 1 [facility] e glycol 0-14 t} Packet by ity of 3350 17 00:00: mouth 2 [place] gram powder 00 (two) Medical times Branch daily as needed for Constipati on. pantoprazol 2021-10 Yes [id number] 40mg Take 1 [facility] e 40 mg EC 0-14 tablet by ity of tablet 00:00: mouth [place] 00 every Medical morning Branch and evening. docusate 2021-10 Yes [id number] 100mg Take 1 [facility] (COLACE) 0-14 capsule by ity o f 100 mg 00:00: mouth in [place] capsule 00 the Medical morning. Branch polyethylen 2021-10 Yes [id number] 1{packe Take 1 [facility] e glycol 0-14 t} Packet by ity of 3350 17 00:00: mouth 2 [place] gram powder 00 (two) Medical times Branch daily as needed for Constipati on. pantoprazol 2021-10 Yes [id number] 40mg Take 1 [facility] e 40 mg EC 0-14 tablet by ity of tablet 00:00: mouth [place] 00 every Medical morning Branch and evening. docusate 2021-10 Yes [id number] 100mg Take 1 [facility] (COLACE) 0-14 capsule by ity o f 100 mg 00:00: mouth in [place] capsule 00 the Medical morning. Branch polyethylen 2021-10 Yes [id number] 1{packe Take 1 [facility] e glycol 0-14 t} Packet by ity of 3350 17 00:00: mouth 2 [place] gram powder 00 (two) Medical times Branch daily as needed for Constipati on. pantoprazol 2021-10 Yes [id number] 40mg Take 1 [facility] e 40 mg EC 0-14 tablet by ity of tablet 00:00: mouth [place] 00 every Medical morning Branch and evening. docusate 2021-10 Yes [id number] 100mg Take 1 [facility] (COLACE) 0-14 capsule by ity o f 100 mg 00:00: mouth in [place] capsule 00 the Medical morning. Branch polyethylen 2021-10 Yes [id number] 1{packe Take 1 [facility] e glycol 0-14 t} Packet by ity of 3350 17 00:00: mouth 2 [place] gram powder 00 (two) Medical times Branch daily as needed for Constipati on. pantoprazol 2021-10 Yes [id number] 40mg Take 1 [facility] e 40 mg EC 0-14 tablet by ity of tablet 00:00: mouth [place] 00 every Medical morning Branch and evening. docusate 2021-10 Yes [id number] 100mg Take 1 [facility] (COLACE) 0-14 capsule by ity o f 100 mg 00:00: mouth in [place] capsule 00 the Medical morning. Branch polyethylen 2021-10 Yes [id number] 1{packe Take 1 [facility] e glycol 0-14 t} Packet by ity of 3350 17 00:00: mouth 2 [place] gram powder 00 (two) Medical times Branch daily as needed for Constipati on. pantoprazol 2021-10 Yes [id number] 40mg Take 1 [facility] e 40 mg EC 0-14 tablet by ity of tablet 00:00: mouth [place] 00 every Medical morning Branch and evening. docusate 2021-10 Yes [id number] 100mg Take 1 [facility] (COLACE) 0-14 capsule by ity o f 100 mg 00:00: mouth in [place] capsule 00 the Medical morning. Branch polyethylen 2021-10 Yes [id number] 1{packe Take 1 [facility] e glycol 0-14 t} Packet by ity of 3350 17 00:00: mouth 2 [place] gram powder 00 (two) Medical times Branch daily as needed for Constipati on. polyethylen 2021-10 Yes [id number] 1{packe Take 1 [facility] e glycol 0-14 t} Packet by ity of 3350 17 00:00: mouth 2 [place] gram powder 00 (two) Medical times Branch daily as needed for Constipati on. polyethylen 2021-10 Yes [id number] 1{packe Take 1 [facility] e glycol 0-14 t} Packet by ity of 3350 17 00:00: mouth 2 [place] gram powder 00 (two) Medical times Branch daily as needed for Constipati on. polyethylen 2021-10 Yes [id number] 1{packe Take 1 [facility] e glycol 0-14 t} Packet by ity of 3350 17 00:00: mouth 2 [place] gram powder 00 (two) Medical times Branch daily as needed for Constipati on. polyethylen 2021-10 Yes [id number] 1{packe Take 1 [facility] e glycol 0-14 t} Packet by ity of 3350 17 00:00: mouth 2 [place] gram powder 00 (two) Medical times Branch daily as needed for Constipati on. polyethylen 2021-10 Yes [id number] 1{packe Take 1 [facility] e glycol 0-14 t} Packet by ity of 3350 17 00:00: mouth 2 [place] gram powder 00 (two) Medical times Branch daily as needed for Constipati on. polyethylen 2021-10 Yes [id number] 1{packe Take 1 [facility] e glycol 0-14 t} Packet by ity of 3350 17 00:00: mouth 2 [place] gram powder 00 (two) Medical times Branch daily as needed for Constipati on. polyethylen 2021-10 Yes [id number] 1{packe Take 1 [facility] e glycol 0-14 t} Packet by ity of 3350 17 00:00: mouth 2 [place] gram powder 00 (two) Medical times Branch daily as needed for Constipati on. polyethylen 2021-10 Yes [id number] 1{packe Take 1 [facility] e glycol 0-14 t} Packet by ity of 3350 17 00:00: mouth 2 [place] gram powder 00 (two) Medical times Branch daily as needed for Constipati on. polyethylen 2021-10 Yes [id number] 1{packe Take 1 [facility] e glycol 0-14 t} Packet by ity of 3350 17 00:00: mouth 2 [place] gram powder 00 (two) Medical times Branch daily as needed for Constipati on. polyethylen 2021-10 Yes [id number] 1{packe Take 1 [facility] e glycol 0-14 t} Packet by ity of 3350 17 00:00: mouth 2 [place] gram powder 00 (two) Medical times Branch daily as needed for Constipati on. polyethylen 2021-10 Yes [id number] 1{packe Take 1 [facility] e glycol 0-14 t} Packet by ity of 3350 17 00:00: mouth 2 [place] gram powder 00 (two) Medical times Branch daily as needed for Constipati on. polyethylen 2021-10 Yes [id number] 1{packe Take 1 [facility] e glycol 0-14 t} Packet by ity of 3350 17 00:00: mouth 2 [place] gram powder 00 (two) Medical times Branch daily as needed for Constipati on. polyethylen 2021-10 Yes [id number] 1{packe Take 1 [facility] e glycol 0-14 t} Packet by ity of 3350 17 00:00: mouth 2 [place] gram powder 00 (two) Medical times Branch daily as needed for Constipati on. polyethylen 2021-10 Yes [id number] 1{packe Take 1 [facility] e glycol 0-14 t} Packet by ity of 3350 17 00:00: mouth 2 [place] gram powder 00 (two) Medical times Branch daily as needed for Constipati on. polyethylen 2021-10 Yes [id number] 1{packe Take 1 [facility] e glycol 0-14 t} Packet by ity of 3350 17 00:00: mouth 2 [place] gram powder 00 (two) Medical times Branch daily as needed for Constipati on. polyethylen 2021-10 Yes [id number] 1{packe Take 1 [facility] e glycol 0-14 t} Packet by ity of 3350 17 00:00: mouth 2 [place] gram powder 00 (two) Medical times Branch daily as needed for Constipati on. polyethylen 2021-10 Yes [id number] 1{packe Take 1 [facility] e glycol 0-14 t} Packet by ity of 3350 17 00:00: mouth 2 [place] gram powder 00 (two) Medical times Branch daily as needed for Constipati on. polyethylen 2021-10 Yes [id number] 1{packe Take 1 [facility] e glycol 0-14 t} Packet by ity of 3350 17 00:00: mouth 2 [place] gram powder 00 (two) Medical times Branch daily as needed for Constipati on. polyethylen 2021-10 Yes [id number] 1{packe Take 1 [facility] e glycol 0-14 t} Packet by ity of 3350 17 00:00: mouth 2 [place] gram powder 00 (two) Medical times Branch daily as needed for Constipati on. polyethylen 2021-10 Yes [id number] 1{packe Take 1 [facility] e glycol 0-14 t} Packet by ity of 3350 17 00:00: mouth 2 [place] gram powder 00 (two) Medical times Branch daily as needed for Constipati on. polyethylen 2021-10 Yes [id number] 1{packe Take 1 [facility] e glycol 0-14 t} Packet by ity of 3350 17 00:00: mouth 2 [place] gram powder 00 (two) Medical times Branch daily as needed for Constipati on. polyethylen 2021-10 Yes [id number] 1{packe Take 1 [facility] e glycol 0-14 t} Packet by ity of 3350 17 00:00: mouth 2 [place] gram powder 00 (two) Medical times Branch daily as needed for Constipati on. polyethylen 2021-10 Yes [id number] 1{packe Take 1 [facility] e glycol 0-14 t} Packet by ity of 3350 17 00:00: mouth 2 [place] gram powder 00 (two) Medical times Branch daily as needed for Constipati on. polyethylen 2021-10 Yes [id number] 1{packe Take 1 [facility] e glycol 0-14 t} Packet by ity of 3350 17 00:00: mouth 2 [place] gram powder 00 (two) Medical times Branch daily as needed for Constipati on. polyethylen 2021-10 Yes [id number] 1{packe Take 1 [facility] e glycol 0-14 t} Packet by ity of 3350 17 00:00: mouth 2 [place] gram powder 00 (two) Medical times Branch daily as needed for Constipati on. polyethylen 2021-10 Yes [id number] 1{packe Take 1 [facility] glycol 0-14 t} Packet by ity of 3350 17 00:00: mouth 2 [place] gram powder 00 (two) Medical times Branch daily as needed for Constipati on. polyethylen 2021-10 Yes [id number] 1{packe Take 1 [facility] glycol 0-14 t} Packet by ity of 3350 17 00:00: mouth 2 [place] gram powder 00 (two) Medical times Branch daily as needed for Constipati on. polyethylen 2021-10 Yes [id number] 1{packe Take 1 [facility] e glycol 0-14 t} Packet by ity of 3350 17 00:00: mouth 2 [place] gram powder 00 (two) Medical times Branch daily as needed for Constipati on. polyethylen 2021-10 Yes [id number] 1{packe Take 1 [facility] glycol 0-14 t} Packet by ity of 3350 17 00:00: mouth 2 [place] gram powder 00 (two) Medical times Branch daily as needed for Constipati on. polyethylen 2021-10 Yes [id number] 1{packe Take 1 [facility] e glycol 0-14 t} Packet by ity of 3350 17 00:00: mouth 2 [place] gram powder 00 (two) Medical times Branch daily as needed for Constipati on. polyethylen 2021-10 Yes [id number] 1{packe Take 1 [facility] glycol 0-14 t} Packet by ity of 3350 17 00:00: mouth 2 [place] gram powder 00 (two) Medical times Branch daily as needed for Constipati on. polyethylen 2021-10 Yes [id number] 1{packe Take 1 [facility] glycol 0-14 t} Packet by ity of 3350 17 00:00: mouth 2 [place] gram powder 00 (two) Medical times Branch daily as needed for Constipati on. polyethylen 2021-10 Yes [id number] 1{packe Take 1 [facility] e glycol 0-14 t} Packet by ity of 3350 17 00:00: mouth 2 [place] gram powder 00 (two) Medical times Branch daily as needed for Constipati on. polyethylen 2021-10 Yes [id number] 1{packe Take 1 [facility] e glycol 0-14 t} Packet by ity of 3350 17 00:00: mouth 2 [place] gram powder 00 (two) Medical times Branch daily as needed for Constipati on. polyethylen 2021-10 Yes [id number] 1{packe Take 1 [facility] e glycol 0-14 t} Packet by ity of 3350 17 00:00: mouth 2 [place] gram powder 00 (two) Medical times Branch daily as needed for Constipati on. polyethylen 2021-10 Yes [id number] 1{packe Take 1 [facility] glycol 0-14 t} Packet by ity of 3350 17 00:00: mouth 2 [place] gram powder 00 (two) Medical times Branch daily as needed for Constipati on. polyethylen 2021-10 Yes [id number] 1{packe Take 1 [facility] e glycol 0-14 t} Packet by ity of 3350 17 00:00: mouth 2 [place] gram powder 00 (two) Medical times Branch daily as needed for Constipati on. pantoprazol 2021-10- No [id number] 40mg Take 1 [facility] e 40 mg EC 0-14 -17 tablet by ity of tablet 00:00: 00:00 mouth [place] 00 :00 every Medical morning Branch and evening. docusate 2021-10- No [id number] 100mg Take 1 [facility] (COLACE) 011-30 capsule by ity of 100 mg 00:00: 00:00 mouth in [place] capsule 00 :00 the Medical morning. Branch pantoprazol 2021-10- No [id number] 40mg Take 1 [facility] e 40 mg EC 011-30 tablet by ity of tablet 00:00: 00:00 mouth [place] 00 :00 every Medical morning Branch and evening. docusate 2021-10- No [id number] 100mg Take 1 [facility] (COLACE) 011-30 capsule by ity of 100 mg 00:00: 00:00 mouth in [place] capsule 00 :00 the Medical morning. Branch ERGOCALCIFE 2021-10 Yes [id number] TAKE 1 [facility] ROL, 0-09 CAPSULE BY ity of VITAMIN D2, 00:00: MOUTH [place] 1,250 mcg 00 WEEKLY Medical (50,000 Branch unit) capsule naproxen 2021-10 Yes [id number] TAKE 1 [facility] 500 mg 0-09 [id number] TABLET BY ity of tablet 00:00: MOUTH [place] 00 TWICE Medical DAILY Branch NEEDED FOR MODERATE PAIN. Use sparingly due to side effects ERGOCALCIFE 2021-10 Yes [id number] TAKE 1 [facility] ROL, 0-09 CAPSULE BY ity of VITAMIN D2, 00:00: MOUTH [place] 1,250 mcg 00 WEEKLY Medical (50,000 Branch unit) capsule naproxen 2021-10 Yes [id number] TAKE 1 [facility] 500 mg 0-09 [id number] TABLET BY ity of tablet 00:00: MOUTH [place] 00 TWICE Medical DAILY Branch NEEDED FOR MODERATE PAIN. Use sparingly due to side effects ERGOCALCIFE 2021-10 Yes [id number] TAKE 1 [facility] ROL, 0-09 CAPSULE BY ity of VITAMIN D2, 00:00: MOUTH [place] 1,250 mcg 00 WEEKLY Medical (50,000 Branch unit) capsule naproxen 2021-10 Yes [id number] TAKE 1 [facility] 500 mg 0-09 [id number] TABLET BY ity of tablet 00:00: MOUTH [place] 00 TWICE Medical DAILY Branch NEEDED FOR MODERATE PAIN. Use sparingly due to side effects ERGOCALCIFE 2021-10 Yes [id number] TAKE 1 [facility] ROL, 0-09 CAPSULE BY ity of VITAMIN D2, 00:00: MOUTH [place] 1,250 mcg 00 WEEKLY Medical (50,000 Branch unit) capsule naproxen 2021-10 Yes [id number] TAKE 1 [facility] 500 mg 0-09 [id number] TABLET BY ity of tablet 00:00: MOUTH [place] 00 TWICE Medical DAILY Branch NEEDED FOR MODERATE PAIN. Use sparingly due to side effects ERGOCALCIFE 2021-10 Yes [id number] TAKE 1 [facility] ROL, 0-09 CAPSULE BY ity of VITAMIN D2, 00:00: MOUTH [place] 1,250 mcg 00 WEEKLY Medical (50,000 Branch unit) capsule naproxen 2021-10 Yes [id number] TAKE 1 [facility] 500 mg 0-09 [id number] TABLET BY ity of tablet 00:00: MOUTH [place] 00 TWICE Medical DAILY Branch NEEDED FOR MODERATE PAIN. Use sparingly due to side effects ERGOCALCIFE 2021-10 Yes [id number] TAKE 1 [facility] ROL, 0-09 CAPSULE BY ity of VITAMIN D2, 00:00: MOUTH [place] 1,250 mcg 00 WEEKLY Medical (50,000 Branch unit) capsule naproxen 2021-10 Yes [id number] TAKE 1 [facility] 500 mg 0-09 [id number] TABLET BY ity of tablet 00:00: MOUTH [place] 00 TWICE Medical DAILY Branch NEEDED FOR MODERATE PAIN. Use sparingly due to side effects ERGOCALCIFE 2021-10 Yes [id number] TAKE 1 [facility] ROL, 0-09 CAPSULE BY ity of VITAMIN D2, 00:00: MOUTH [place] 1,250 mcg 00 WEEKLY Medical (50,000 Branch unit) capsule ERGOCALCIFE 2021-10 Yes [id number] TAKE 1 [facility] ROL, 0-09 CAPSULE BY ity of VITAMIN D2, 00:00: MOUTH [place] 1,250 mcg 00 WEEKLY Medical (50,000 Branch unit) capsule ERGOCALCIFE 2021-10 Yes [id number] TAKE 1 [facility] ROL, 0-09 CAPSULE BY ity of VITAMIN D2, 00:00: MOUTH [place] 1,250 mcg 00 WEEKLY Medical (50,000 Branch unit) capsule ERGOCALCIFE 2021-10 [id number] TAKE 1 [facility] ROL, 0-09 12-28 CAPSULE BY ity of VITAMIN D2, 00:00: 00:00 MOUTH [place] 1,250 mcg 00 :00 WEEKLY Medical (50,000 Branch unit) capsule naproxen 2021-10- No [id number] TAKE 1 [facility] 500 mg 08-22 TABLET BY ity of tablet 00:00: 00:00 MOUTH [place] 00 :00 TWICE Medical DAILY Branch NEEDED FOR MODERATE PAIN. Use sparingly due to side effects SUCRALFATE 2021-0 Yes [id number] 1g TAKE 1 [facility] 1 gram 9-16 TABLET BY ity of tablet 00:00: MOUTH [place] 00 BEFORE Medical MEALS AND Branch AT BEDTIME SUCRALFATE 2021-0 Yes [id number] 1g TAKE 1 [facility] 1 gram 9-16 TABLET BY ity of tablet 00:00: MOUTH [place] 00 BEFORE Medical MEALS AND Branch AT BEDTIME SUCRALFATE 2021-0 Yes [id number] 1g TAKE 1 [facility] 1 gram 9-16 TABLET BY ity of tablet 00:00: MOUTH [place] 00 BEFORE Medical MEALS AND Branch AT BEDTIME SUCRALFATE 2021-0 Yes [id number] 1g TAKE 1 [facility] 1 gram 9-16 TABLET BY ity of tablet 00:00: MOUTH [place] 00 BEFORE Medical MEALS AND Branch AT BEDTIME SUCRALFATE 2021-0 Yes [id number] 1g TAKE 1 [facility] 1 gram 9-16 TABLET BY ity of tablet 00:00: MOUTH [place] 00 BEFORE Medical MEALS AND Branch AT BEDTIME SUCRALFATE 2021-0 Yes [id number] 1g TAKE 1 [facility] 1 gram 9-16 TABLET BY ity of tablet 00:00: MOUTH 00 BEFORE Medical MEALS AND Branch AT BEDTIME SUCRALFATE 2021-0 Yes [id number] 1g TAKE 1 [facility] 1 gram 9-16 TABLET BY ity of tablet 00:00: MOUTH [place] 00 BEFORE Medical MEALS AND Branch AT BEDTIME SUCRALFATE 2021-0 Yes [id number] 1g TAKE 1 [facility] 1 gram 9-16 TABLET BY ity of tablet 00:00: MOUTH [place] 00 BEFORE Medical MEALS AND Branch AT BEDTIME SUCRALFATE 2021-0 Yes [id number] 1g TAKE 1 [facility] 1 gram 9-16 TABLET BY ity of tablet 00:00: MOUTH [place] 00 BEFORE Medical MEALS AND Branch AT BEDTIME SUCRALFATE 2021-0 Yes [id number] 1g TAKE 1 [facility] 1 gram 9-16 TABLET BY ity of tablet 00:00: MOUTH [place] 00 BEFORE Medical MEALS AND Branch AT BEDTIME SUCRALFATE 2021-0 Yes [id number] 1g TAKE 1 [facility] 1 gram 9-16 TABLET BY [facility] tablet 00:00: MOUTH [place] 00 BEFORE Medical MEALS AND Branch AT BEDTIME SUCRALFATE 2021-0 Yes [id number] 1g TAKE 1 [facility] 1 gram 9-16 TABLET BY [facility] of tablet 00:00: MOUTH [place] 00 BEFORE Medical MEALS AND Branch AT BEDTIME SUCRALFATE 2021-0 2022- No [id number] 1g TAKE 1 [facility] 1 gram 9-16 02-17 TABLET BY [facility] tablet 00:00: 00:00 MOUTH [place] 00 :00 BEFORE Medical MEALS AND Branch AT BEDTIME SUCRALFATE 2021-0 2022- No [id number] 1g TAKE 1 [facility] 1 gram 9-16 02-17 TABLET BY [facility] tablet 00:00: 00:00 MOUTH [place] 00 :00 BEFORE Medical MEALS AND Branch AT BEDTIME naproxen 2021-0 Yes [id number] TAKE 1 [facility] 500 mg 8-24 [id number] TABLET BY [facility] tablet 00:00: MOUTH [place] 00 TWICE Medical DAILY Branch NEEDED FOR MODERATE PAIN. Use sparingly due to side effects naproxen 0 Yes [id number] TAKE 1 [facility] 500 mg 8-24 [id number] TABLET BY [facility] of tablet 00:00: MOUTH [place] 00 TWICE Medical DAILY Branch NEEDED FOR MODERATE PAIN. Use sparingly due to side effects naproxen 2021-0 2021- No [id number] TAKE 1 [facility] 500 mg 8-24 10-09 [id number] TABLET BY [facility] of tablet 00:00: 00:00 MOUTH [place] 00 :00 TWICE Medical DAILY Branch NEEDED FOR MODERATE PAIN. Use sparingly due to side effects ferrous 0 Yes [id number] 324mg Take 1 [facility] vers sulfate 324 8-19 tablet by [facility] of mg (65 mg 00:00: mouth [place] iron) EC 00 daily with Medic al tablet breakfast. Branch ferrous 0 Yes [id number] 324mg Take 1 [facility] vers sulfate 324 8-19 tablet by [facility] of mg (65 mg 00:00: mouth [place] iron) EC 00 daily with Medic al tablet breakfast. Branch ferrous 2022-0 Yes [id number] 324mg Take 1 [facility] vers sulfate 324 8-19 tablet by [facility] of mg (65 mg 00:00: mouth [place] iron) EC 00 daily with Medic al tablet breakfast. Branch ferrous 2021-0 Yes [id number] 324mg Take 1 [facility] vers sulfate 324 8-19 tablet by [facility] of mg (65 mg 00:00: mouth [place] iron) EC 00 daily with Medic al tablet breakfast. Branch ferrous 2021-0 Yes [id number] 324mg Take 1 [facility] vers sulfate 324 8-19 tablet by [facility] of mg (65 mg 00:00: mouth [place] iron) EC 00 daily with Medic al tablet breakfast. Branch ferrous 0 Yes [id number] 324mg Take 1 [facility] vers sulfate 324 8-19 tablet by [facility] of mg (65 mg 00:00: mouth [place] iron) EC 00 daily with Medic al tablet breakfast. Branch ferrous 0 Yes [id number] 324mg Take 1 [facility] vers sulfate 324 8-19 tablet by [facility] of mg (65 mg 00:00: mouth [place] iron) EC 00 daily with Medic al tablet breakfast. Branch ferrous 2021-0 Yes [id number] 324mg Take 1 [facility] vers sulfate 324 8-19 tablet by [facility] of mg (65 mg 00:00: mouth [place] iron) EC 00 daily with Medic al tablet breakfast. Branch ferrous 2021-0 Yes [id number] 324mg Take 1 [facility] vers sulfate 324 8-19 tablet by [facility] of mg (65 mg 00:00: mouth [place] iron) EC 00 daily with Medic al tablet breakfast. Branch ferrous 2021-0 Yes [id number] 324mg Take 1 [facility] vers sulfate 324 8-19 tablet by [facility] of mg (65 mg 00:00: mouth [place] iron) EC 00 daily with Medic al tablet breakfast. Branch ferrous 2021-0 Yes [id number] 324mg Take 1 [facility] vers sulfate 324 8-19 tablet by [facility] of mg (65 mg 00:00: mouth [place] iron) EC 00 daily with Medic al tablet breakfast. Branch ferrous 2021-0 Yes [id number] 324mg Take 1 [facility] vers sulfate 324 8-19 tablet by [facility] of mg (65 mg 00:00: mouth [place] iron) EC 00 daily with Medic al tablet breakfast. Branch ferrous 2021-0 Yes [id number] 324mg Take 1 [facility] vers sulfate 324 8-19 tablet by [facility] of mg (65 mg 00:00: mouth [place] iron) EC 00 daily with Medic al tablet breakfast. Branch ferrous 2021-0 Yes [id number] 324mg Take 1 [facility] vers sulfate 324 8-19 tablet by [facility] of mg (65 mg 00:00: mouth [place] iron) EC 00 daily with Medic al tablet breakfast. Branch ferrous 2021-0 Yes [id number] 324mg Take 1 [facility] vers sulfate 324 8-19 tablet by [facility] of mg (65 mg 00:00: mouth [place] iron) EC 00 daily with Medic al tablet breakfast. Branch ferrous 2021-0 Yes [id number] 324mg Take 1 [facility] vers sulfate 324 8-19 tablet by [facility] of mg (65 mg 00:00: mouth [place] iron) EC 00 daily with Medic al tablet breakfast. Branch ferrous 0 Yes [id number] 324mg Take 1 [facility] vers sulfate 324 8-19 tablet by [facility] of mg (65 mg 00:00: mouth [place] iron) EC 00 daily with Medic al tablet breakfast. Branch ferrous 2021-0 Yes [id number] 324mg Take 1 [facility] vers sulfate 324 8-19 tablet by [facility] of mg (65 mg 00:00: mouth [place] iron) EC 00 daily with Medic al tablet breakfast. Branch ferrous 2021-0 Yes [id number] 324mg Take 1 [facility] vers sulfate 324 8-19 tablet by [facility] of mg (65 mg 00:00: mouth [place] iron) EC 00 daily with Medic al tablet breakfast. Branch ferrous 2021-0 Yes [id number] 324mg Take 1 [facility] vers sulfate 324 8-19 tablet by [facility] of mg (65 mg 00:00: mouth [place] iron) EC 00 daily with Medic al tablet breakfast. Branch ferrous 2021-0 Yes [id number] 324mg Take 1 [facility] vers sulfate 324 8-19 tablet by [facility] of mg (65 mg 00:00: mouth [place] iron) EC 00 daily with Medic al tablet breakfast. Branch ferrous 2021-0 Yes [id number] 324mg Take 1 [facility] vers sulfate 324 8-19 tablet by [facility] of mg (65 mg 00:00: mouth [place] iron) EC 00 daily with Medic al tablet breakfast. Branch ferrous 2021-0 Yes [id number] 324mg Take 1 [facility] vers sulfate 324 8-19 tablet by [facility] of mg (65 mg 00:00: mouth [place] iron) EC 00 daily with Medic al tablet breakfast. Branch ferrous 2021-0 Yes [id number] 324mg Take 1 [facility] vers sulfate 324 8-19 tablet by [facility] of mg (65 mg 00:00: mouth [place] iron) EC 00 daily with Medic al tablet breakfast. Branch ferrous 2021-0 Yes [id number] 324mg Take 1 [facility] vers sulfate 324 8-19 tablet by [facility] of mg (65 mg 00:00: mouth [place] iron) EC 00 daily with Medic al tablet breakfast. Branch ferrous 2021-0 Yes [id number] 324mg Take 1 [facility] vers sulfate 324 8-19 tablet by [facility] of mg (65 mg 00:00: mouth [place] iron) EC 00 daily with Medic al tablet breakfast. Branch ferrous 2021-0 Yes [id number] 324mg Take 1 [facility] vers sulfate 324 8-19 tablet by [facility] of mg (65 mg 00:00: mouth [place] iron) EC 00 daily with Medic al tablet breakfast. Branch ferrous 2021-0 Yes [id number] 324mg Take 1 [facility] vers sulfate 324 8-19 tablet by [facility] of mg (65 mg 00:00: mouth [place] iron) EC 00 daily with Medic al tablet breakfast. Branch ferrous 2021-0 Yes [id number] 324mg Take 1 [facility] vers sulfate 324 8-19 tablet by [facility] of mg (65 mg 00:00: mouth [place] iron) EC 00 daily with Medic al tablet breakfast. Branch ferrous 2021-0 Yes [id number] 324mg Take 1 [facility] vers sulfate 324 8-19 tablet by [facility] of mg (65 mg 00:00: mouth [place] iron) EC 00 daily with Medic al tablet breakfast. Branch ferrous 2021-0 Yes [id number] 324mg Take 1 [facility] vers sulfate 324 8-19 tablet by [facility] of mg (65 mg 00:00: mouth [place] iron) EC 00 daily with Medic al tablet breakfast. Branch ferrous 2021-0 Yes [id number] 324mg Take 1 [facility] vers sulfate 324 8-19 tablet by [facility] of mg (65 mg 00:00: mouth [place] iron) EC 00 daily with Medic al tablet breakfast. Branch ferrous 2021-0 Yes [id number] 324mg Take 1 [facility] vers sulfate 324 8-19 tablet by [facility] of mg (65 mg 00:00: mouth [place] iron) EC 00 daily with Medic al tablet breakfast. Branch ferrous 2021-0 Yes [id number] 324mg Take 1 [facility] vers sulfate 324 8-19 tablet by [facility] of mg (65 mg 00:00: mouth [place] iron) EC 00 daily with Medic al tablet breakfast. Branch ferrous 2021-0 Yes [id number] 324mg Take 1 [facility] vers sulfate 324 8-19 tablet by [facility] of mg (65 mg 00:00: mouth [place] iron) EC 00 daily with Medic al tablet breakfast. Branch ferrous 2021-0 Yes [id number] 324mg Take 1 [facility] vers sulfate 324 8-19 tablet by [facility] of mg (65 mg 00:00: mouth [place] iron) EC 00 daily with Medic al tablet breakfast. Branch ferrous 2021-0 Yes [id number] 324mg Take 1 [facility] vers sulfate 324 8-19 tablet by [facility] of mg (65 mg 00:00: mouth [place] iron) EC 00 daily with Medic al tablet breakfast. Branch ferrous 2021-0 Yes [id number] 324mg Take 1 [facility] vers sulfate 324 8-19 tablet by [facility] of mg (65 mg 00:00: mouth [place] iron) EC 00 daily with Medic al tablet breakfast. Branch ferrous 2021-0 Yes [id number] 324mg Take 1 [facility] vers sulfate 324 8-19 tablet by [facility] of mg (65 mg 00:00: mouth [place] iron) EC 00 daily with Medic al tablet breakfast. Branch ferrous 2021-0 Yes [id number] 324mg Take 1 [facility] vers sulfate 324 8-19 tablet by [facility] of mg (65 mg 00:00: mouth [place] iron) EC 00 daily with Medic al tablet breakfast. Branch ferrous 2021-0 Yes [id number] 324mg Take 1 [facility] vers sulfate 324 8-19 tablet by [facility] of mg (65 mg 00:00: mouth [place] iron) EC 00 daily with Medic al tablet breakfast. Branch ferrous 2021-0 Yes [id number] 324mg Take 1 [facility] vers sulfate 324 8-19 tablet by [facility] of mg (65 mg 00:00: mouth [place] iron) EC 00 daily with Medic al tablet breakfast. Branch ferrous 2021-0 Yes [id number] 324mg Take 1 [facility] vers sulfate 324 8-19 tablet by [facility] of mg (65 mg 00:00: mouth [place] iron) EC 00 daily with Medic al tablet breakfast. Branch ferrous 2021-0 Yes [id number] 324mg Take 1 [facility] vers sulfate 324 8-19 tablet by [facility] of mg (65 mg 00:00: mouth [place] iron) EC 00 daily with Medic al tablet breakfast. Branch ferrous 2-0 Yes [id number] 324mg Take 1 [facility] vers sulfate 324 8-19 tablet by [facility] of mg (65 mg 00:00: mouth [place] iron) EC 00 daily with Medic al tablet breakfast. Branch ferrous 2021-0 Yes [id number] 324mg Take 1 [facility] vers sulfate 324 8-19 tablet by [facility] of mg (65 mg 00:00: mouth [place] iron) EC 00 daily with Medic al tablet breakfast. Branch ergocalcife 2021-0 Yes [id number] 73068R Take 1 [facility] rol, 8-19 capsule by [facility] of vitamin d2, 00:00: mouth [place] (VITAMIN 00 weekly. Medical D2) 1,250 Branch mcg (50,000 unit) capsule sucralfate 2021-0 Yes [id number] 1g Take 1 [facility] 1 gram 8-19 tablet by [facility] of tablet 00:00: mouth [place] 00 before Medical meals and Branch at bedtime. ferrous 2021-0 Yes [id number] 324mg Take 1 [facility] vers sulfate 324 8-19 tablet by [facility] of mg (65 mg 00:00: mouth [place] iron) EC 00 daily with Medic al tablet breakfast. Branch ergocalcife 2021-0 Yes [id number] Take 1 [facility] rol, 8-19 capsule by [facility] of vitamin d2, 00:00: mouth [place] (VITAMIN 00 weekly. Medical D2) 1,250 Branch mcg (50,000 unit) capsule sucralfate 2021-0 Yes [id number] 1g Take 1 [facility] 1 gram 8-19 tablet by [facility] of tablet 00:00: mouth [place] 00 before Medical meals and Branch at bedtime. ferrous 2022-0 Yes [id number] 324mg Take 1 [facility] vers sulfate 324 8-19 tablet by [facility] of mg (65 mg 00:00: mouth [place] iron) EC 00 daily with Medic al tablet breakfast. Branch ergocalcife 2021-0 Yes [id number] 11069O Take 1 [facility] rol, 8-19 capsule by [facility] of vitamin d2, 00:00: mouth [place] (VITAMIN 00 weekly. Medical D2) 1,250 Branch mcg (50,000 unit) capsule ferrous 2-0 Yes [id number] 324mg Take 1 [facility] vers sulfate 324 8-19 tablet by [facility] of mg (65 mg 00:00: mouth [place] iron) EC 00 daily with Medic al tablet breakfast. Branch ferrous 2021-0 Yes [id number] 324mg Take 1 [facility] vers sulfate 324 8-19 tablet by [facility] of mg (65 mg 00:00: mouth [place] iron) EC 00 daily with Medic al tablet breakfast. Branch ferrous 2021-0 Yes [id number] 324mg Take 1 [facility] vers sulfate 324 8-19 tablet by [facility] of mg (65 mg 00:00: mouth [place] iron) EC 00 daily with Medic al tablet breakfast. Branch ferrous 2021-0 Yes [id number] 324mg Take 1 [facility] vers sulfate 324 8-19 tablet by [facility] of mg (65 mg 00:00: mouth [place] iron) EC 00 daily with Medic al tablet breakfast. Branch ferrous 2021-0 Yes [id number] 324mg Take 1 [facility] vers sulfate 324 8-19 tablet by [facility] of mg (65 mg 00:00: mouth [place] iron) EC 00 daily with Medic al tablet breakfast. Branch ergocalcife 2021- No [id number] Take 1 [facility] rol, 8 10-09 capsule by [facility] of vitamin d2, 00:00: 00:00 [place] (VITAMIN 00 :00 weekly. Medical D2) 1,250 Branch mcg (50,000 unit) capsule ergocalcife 2021- No [id number] Take 1 [facility] rol, 8- 10-09 capsule by [facility] of vitamin d2, 00:00: 00:00 mouth [place] (VITAMIN 00 :00 weekly. Medical D2) 1,250 Branch mcg (50,000 unit) capsule sucralfate 2021- No [id number] 1g Take 1 [facility] 1 gram 8-02 07-16 tablet by [facility] of tablet 00:00: 00:00 mouth [place] 00 :00 before Medical meals and Branch at bedtime. sucralfate 2021-0 2021- No [id number] 1g Take 1 [facility] 1 gram 8-19 -16 tablet by [facility] of tablet 00:00: 00:00 mouth [place] 00 :00 before Medical meals and Branch at bedtime. PANTOPRAZOL Yes [id number] TAKE 1 [facility] E 40 mg EC 8-18 TABLET BY [facility] of tablet 00:00: MOUTH IN [place] 00 THE Medical MORNING Branch AND IN THE EVENING PANTOPRAZOL Yes [id number] TAKE 1 [facility] E 40 mg EC 8-18 TABLET BY [facility] of tablet 00:00: MOUTH IN [place] 00 THE Medical MORNING Branch AND IN THE EVENING PANTOPRAZOL Yes [id number] TAKE 1 [facility] E 40 mg EC 8-18 TABLET BY [facility] of tablet 00:00: MOUTH IN [place] 00 THE Medical MORNING Branch AND IN THE EVENING PANTOPRAZOL Yes [id number] TAKE 1 [facility] E 40 mg EC 8-18 TABLET BY [facility] of tablet 00:00: MOUTH IN [place] 00 THE Medical MORNING Branch AND IN THE EVENING PANTOPRAZOL 2021- No [id number] TAKE 1 [facility] E 40 mg EC 8-18 10-14 TABLET BY [facility] of tablet 00:00: 00:00 MOUTH IN [place] 00 :00 THE Medical MORNING Branch AND IN THE EVENING PANTOPRAZOL 2021- No [id number] TAKE 1 [facility] E 40 mg EC 8-18 10-14 TABLET BY [facility] of tablet 00:00: 00:00 MOUTH IN [place] 00 :00 THE Medical MORNING Branch AND IN THE EVENING PANTOPRAZOL 2021- No [id number] TAKE 1 [facility] E 40 mg EC 8-18 10-14 TABLET BY [facility] of tablet 00:00: 00:00 MOUTH IN [place] 00 :00 THE Medical MORNING Branch AND IN THE EVENING naproxen Yes [id number] TAKE 1 [facility] 500 mg 7-25 [id number] TABLET BY [facility] of tablet 00:00: MOUTH [place] 00 TWICE Medical DAILY Branch NEEDED FOR MODERATE PAIN. Use sparingly due to side effects naproxen 2021- No [id number] TAKE 1 [facility] 500 mg 7-25 08-24 [id number] TABLET BY [facility] of tablet 00:00: 00:00 MOUTH [place] 00 :00 TWICE Medical DAILY Branch NEEDED FOR MODERATE PAIN. Use sparingly due to side effects naproxen 2021- No [id number] TAKE 1 [facility] 500 mg 7-25 08-24 [id number] TABLET BY [facility] of tablet 00:00: 00:00 [...] Branch ORAL) aspirin/steve 2022-0 Yes Take by Un evon icylamide/c 7-23 mouth 2 ity o f [...] Branch ORAL) aspirin/steve 2022-0 Yes Take by Un evon icylamide/c 7-23 mouth 2 ity o f [...] 41 times Medical POWDER daily. Branch ORAL) pantoprazol 2021- No [id number] 40mg Take 1 [facility] e 40 mg EC 11-30 tablet by [facility] of tablet 00:00: 00:00 mouth 2 [place] 00 :00 (two) Medical times Branch daily. naproxen 2021- No [id number] 500mg Take 1 [facility] 500 mg 11-13 [id number] tablet by [facility] of tablet 00:00: 00:00 mouth 2 [place] 00 :00 (two) Medical times Branch daily as needed for Pain (scale 4-6). pantoprazol 2020-10- No [id number] 40mg Take 1 [facility] e 40 mg EC 11-19 tablet by [facility] of tablet 00:00: 00:00 mouth 2 [place] 00 :00 (two) Medical times Branch daily. naproxen 2020-10- No [id number] 500mg Take 1 [facility] 500 mg 11-12 [id number] tablet by it[facility] of tablet 00:00: 00:00 mouth 2 [place] 00 :00 (two) Medical times Branch daily as needed for Pain (scale 4-6). HYDROcodone 2020- No 1{tbl} Take 1 [facility] nivers -acetaminop 07-04 tablet by it y of hen (NORCO) 13:40: 00:00 mouth [place] 5-325 mg 07 :00 every 6 Medical tablet (six) Branch hours as needed. sucralfate 2020- No [id number] 1g Take 1 [facility] (CARAFATE) 04-06 tablet by ity of 1 gram 00:00: 00:00 mouth [place] tablet 00 :00 before Medical meals and Branch at bedtime. pantoprazol 2020- No [id number] 40mg Take 1 [facility] e 40 mg EC 04-05 tablet by ity of tablet 00:00: 00:00 mouth 2 [place] 00 :00 (two) Medical times Branch daily. Immunizations Ordered Filled Date Status Comments [facility]00 [facility] 2022-05-04 Completed [facility] 00:00:00 [facility] Rem[facility]ivir 2022-05-04 Completed [facility] of 00:00:00 [facility] Remdesivir 2022-05-04 Completed [facility] of 00:00:00 [facility] Remdesivir 2022-05-04 Completed [facility] of 00:00:00 [facility] Remdesivir 2022-05-04 Completed [facility] of 00:00:00 [facility] Remdesivir 2022-05-04 Completed [facility] of 00:00:00 [facility] Remdesivir 2022-05-04 Completed [facility] of 00:00:00 [facility] Remdesivir 2022-05-04 Completed [facility] of 00:00:00 [facility] Remdesivir 2022-05-04 Completed [facility] of 00:00:00 [facility] Remdesivir 2022-05-04 Completed [facility] of 00:00:00 [facility] Remdesivir 2022-05-04 Completed [facility] of 00:00:00 [facility] Remdesivir 2022-05-04 Completed [facility] of 00:00:00 [facility] Remdesivir 2022-05-04 Completed [facility] of 00:00:00 [place] [facility] Remdesivir 2022-05-04 Completed [facility] 00:00:00 [place] [facility] Remdesivir 2022-05-04 Completed [facility] 00:00:00 [place] [facility] Remdesivir 2022-05-04 Completed [facility] 00:00:00 [place] [facility] Remdesivir 2022-05-04 Completed [facility] 00:00:00 [place] [facility] Remdesivir 2022-05-04 Completed [facility] 00:00:00 [place] [facility] Remdesivir 2022-05-04 Completed [facility] 00:00:00 [place] [facility] Remdesivir 2022-05-04 Completed [facility] 00:00:00 [place] [facility] Remdesivir 2022-05-04 Completed [facility] 00:00:00 [place] [facility] Remdesivir 2022-05-04 Completed [facility] 00:00:00 [place] [facility] Remdesivir 2022-05-04 Completed [facility] 00:00:00 [place] [facility] Remdesivir 2022-05-04 Completed [facility] 00:00:00 [place] [facility] Remdesivir 2022-05-04 Completed [facility] 00:00:00 [place] [facility] Remdesivir 2022-05-04 Completed [facility] 00:00:00 [place] [facility] Remdesivir 2022-05-04 Completed [facility] 00:00:00 [place] [facility] Remdesivir 2022-05-04 Completed [facility] 00:00:00 [place] [facility] Remdesivir 2022-05-04 Completed [facility] 00:00:00 [place] [facility] Remdesivir 2022-05-04 Completed [facility] 00:00:00 [place] [facility] Remdesivir 2022-05-04 Completed [facility] 00:00:00 [place] [facility] Remdesivir 2022-05-04 Completed [facility] 00:00:00 [place] [facility] Remdesivir 2022-05-04 Completed [facility] 00:00:00 [place] [facility] Remdesivir 2022-05-04 Completed [facility] 00:00:00 [place] [facility] Remdesivir 2022-05-04 Completed [facility] 00:00:00 [place] [facility] Remdesivir 2022-05-04 Completed [facility] 00:00:00 [place] [facility] Remdesivir 2022-05-04 Completed [facility] of 00:00:00 [place] [facility] Remdesivir 2022-05-04 Completed [facility] 00:00:00 [place] [facility] Remdesivir 2022-05-04 Completed [facility] of 00:00:00 [place] [facility] Remdesivir 2022-05-04 Completed [facility] 00:00:00 [place] [facility] Remdesivir 2022-05-04 Completed [facility] 00:00:00 [place] [facility] Remdesivir 2022-05-04 Completed [facility] of 00:00:00 [place] [facility] Remdesivir 2022-05-04 Completed [facility] 00:00:00 [place] [facility] Remdesivir 2022-05-04 Completed [facility] 00:00:00 [place] [facility] Remdesivir 2022-05-03 Completed [facility] of 00:00:00 [place] [facility] Remdesivir 2022-05-03 Completed [facility] of 00:00:00 [place] [facility] Remdesivir 2022-05-03 Completed [facility] of 00:00:00 [place] [facility] Remdesivir 2022-05-03 Completed [facility] of 00:00:00 [place] [facility] Remdesivir 2022-05-03 Completed [facility] of 00:00:00 [place] [facility] Remdesivir 2022-05-03 Completed [facility] of 00:00:00 [place] [facility] Remdesivir 2022-05-03 Completed [facility] of 00:00:00 [place] [facility] Remdesivir 2022-05-03 Completed [facility] of 00:00:00 [place] [facility] Remdesivir 2022-05-03 Completed [facility] of 00:00:00 [place] [facility] Remdesivir 2022-05-03 Completed [facility] of 00:00:00 [place] [facility] Remdesivir 2022-05-03 Completed [facility] of 00:00:00 [place] [facility] Remdesivir 2022-05-03 Completed [facility] of 00:00:00 [place] [facility] Remdesivir 2022-05-03 Completed [facility] of 00:00:00 [place] [facility] Remdesivir 2022-05-03 Completed [facility] of 00:00:00 [place] [facility] Remdesivir 2022-05-03 Completed [facility] of 00:00:00 [place] [facility] Remdesivir 2022-05-03 Completed [facility] of 00:00:00 [place] [facility] Remdesivir 2022-05-03 Completed [facility] of 00:00:00 [place] [facility] Remdesivir 2022-05-03 Completed [facility] of 00:00:00 [place] [facility] Remdesivir 2022-05-03 Completed [facility] of 00:00:00 [place] [facility] Remdesivir 2022-05-03 Completed [facility] of 00:00:00 [place] [facility] Remdesivir 2022-05-03 Completed [facility] of 00:00:00 [place] [facility] Remdesivir 2022-05-03 Completed [facility] of 00:00:00 [place] [facility] Remdesivir 2022-05-03 Completed [facility] of 00:00:00 [place] [facility] Remdesivir 2022-05-03 Completed [facility] of 00:00:00 [place] [facility] Remdesivir 2022-05-03 Completed [facility] of 00:00:00 [place] [facility] Remdesivir 2022-05-03 Completed [facility] of 00:00:00 [place] [facility] Remdesivir 2022-05-03 Completed [facility] of 00:00:00 [place] [facility] Remdesivir 2022-05-03 Completed [facility] of 00:00:00 [place] [facility] Remdesivir 2022-05-03 Completed [facility] of 00:00:00 [place] [facility] Remdesivir 2022-05-03 Completed [facility] of 00:00:00 [place] [facility] Remdesivir 2022-05-03 Completed [facility] of 00:00:00 [place] [facility] Remdesivir 2022-05-03 Completed [facility] of 00:00:00 [place] [facility] Remdesivir 2022-05-03 Completed [facility] of 00:00:00 [place] [facility] Remdesivir 2022-05-03 Completed [facility] of 00:00:00 [place] [facility] Remdesivir 2022-05-03 Completed [facility] of 00:00:00 [place] [facility] Remdesivir 2022-05-03 Completed [facility] of 00:00:00 [place] [facility] Remdesivir 2022-05-03 Completed [facility] of 00:00:00 [place] [facility] Remdesivir 2022-05-03 Completed [facility] of 00:00:00 [place] [facility] Remdesivir 2022-05-03 Completed [facility] of 00:00:00 [place] [facility] Remdesivir 2022-05-03 Completed [facility] of 00:00:00 [place] [facility] Remdesivir 2022-05-03 Completed [facility] of 00:00:00 [place] [facility] Remdesivir 2022-05-03 Completed [facility] of 00:00:00 [place] [facility] Remdesivir 2022-05-03 Completed [facility] of 00:00:00 [place] [facility] Remdesivir 2022-05-03 Completed [facility] of 00:00:00 [place] [facility] Remdesivir 2022-05-03 Completed [facility] of 00:00:00 [place] [facility] Remdesivir 2022-05-02 Completed [facility] of 00:00:00 [place] [facility] Remdesivir 2022-05-02 Completed [facility] of 00:00:00 [place] [facility] Remdesivir 2022-05-02 Completed [facility] of 00:00:00 [place] [facility] Remdesivir 2022-05-02 Completed [facility] of 00:00:00 [place] [facility] Remdesivir 2022-05-02 Completed [facility] of 00:00:00 [place] [facility] Remdesivir 2022-05-02 Completed [facility] of 00:00:00 [place] [facility] Remdesivir 2022-05-02 Completed [facility] of 00:00:00 [place] [facility] Remdesivir 2022-05-02 Completed [facility] of 00:00:00 [place] [facility] Remdesivir 2022-05-02 Completed [facility] of 00:00:00 [place] [facility] Remdesivir 2022-05-02 Completed [facility] of 00:00:00 [place] [facility] Remdesivir 2022-05-02 Completed [facility] of 00:00:00 [place] [facility] Remdesivir 2022-05-02 Completed [facility] of 00:00:00 [place] [facility] Remdesivir 2022-05-02 Completed [facility] of 00:00:00 [place] [facility] Remdesivir 2022-05-02 Completed [facility] of 00:00:00 [place] [facility] Remdesivir 2022-05-02 Completed [facility] of 00:00:00 [place] [facility] Remdesivir 2022-05-02 Completed [facility] of 00:00:00 [place] [facility] Remdesivir 2022-05-02 Completed [facility] of 00:00:00 [place] [facility] Remdesivir 2022-05-02 Completed [facility] of 00:00:00 [place] [facility] Remdesivir 2022-05-02 Completed [facility] of 00:00:00 [place] [facility] Remdesivir 2022-05-02 Completed [facility] of 00:00:00 [place] [facility] Remdesivir 2022-05-02 Completed [facility] of 00:00:00 [place] [facility] Remdesivir 2022-05-02 Completed [facility] of 00:00:00 [place] [facility] Remdesivir 2022-05-02 Completed [facility] of 00:00:00 [place] [facility] Remdesivir 2022-05-02 Completed [facility] of 00:00:00 [place] [facility] Remdesivir 2022-05-02 Completed [facility] of 00:00:00 [facility] Remdesivir 2022-05-02 Completed [facility] 00:00:00 [facility] Remdesivir 2022-05-02 Completed [facility] 00:00:00 [facility] Remdesivir 2022-05-02 Completed [facility] 00:00:00 [facility] Remdesivir 2022-05-02 Completed [facility] 00:00:00 [facility] Remdesivir 2022-05-02 Completed [facility] 00:00:00 [facility] Remdesivir 2022-05-02 Completed [facility] 00:00:00 [facility] Remdesivir 2022-05-02 Completed [facility] 00:00:00 [facility] Remdesivir 2022-05-02 Completed [facility] 00:00:00 [facility] Remdesivir 2022-05-02 Completed [facility] 00:00:00 [facility] Remdesivir 2022-05-02 Completed [facility] 00:00:00 [facility] Remdesivir 2022-05-02 Completed [facility] 00:00:00 [facility] Remdesivir 2022-05-02 Completed [facility] 00:00:00 [facility] Remdesivir 2022-05-02 Completed [facility] 00:00:00 [facility] Remdesivir 2022-05-02 Completed [facility] 00:00:00 [facility] Remdesivir 2022-05-02 Completed [facility] 00:00:00 [facility] Remdesivir 2022-05-02 Completed [facility] 00:00:00 [facility] Remdesivir 2022-05-02 Completed [facility] 00:00:00 [facility] Remdesivir 2022-05-02 Completed [facility] 00:00:00 [facility] Remdesivir 2022-05-02 Completed [facility] 00:00:00 [facility] Remdesivir 2022-05-02 Completed [facility] 00:00:00 [facility] Remdesivir 2022-05-01 Completed [facility] 00:00:00 [facility] Remdesivir 2022-05-01 Completed [facility] 00:00:00 [facility] Remdesivir 2022-05-01 Completed [facility] 00:00:00 [facility] Remdesivir 2022-05-01 Completed [facility] 00:00:00 [facility] Remdesivir 2022-05-01 Completed [facility] 00:00:00 [facility] Remdesivir 2022-05-01 Completed [facility] 00:00:00 [facility] Remdesivir 2022-05-01 Completed [facility] 00:00:00 [facility] Remdesivir 2022-05-01 Completed [facility] 00:00:00 [facility] Remdesivir 2022-05-01 Completed [facility] 00:00:00 [facility] Remdesivir 2022-05-01 Completed [facility] 00:00:00 [facility] Remdesivir 2022-05-01 Completed [facility] 00:00:00 [facility] Remdesivir 2022-05-01 Completed [facility] 00:00:00 [facility] Remdesivir 2022-05-01 Completed [facility] 00:00:00 [facility] Remdesivir 2022-05-01 Completed [facility] 00:00:00 [facility] Remdesivir 2022-05-01 Completed [facility] 00:00:00 [facility] Remdesivir 2022-05-01 Completed [facility] 00:00:00 [facility] Remdesivir 2022-05-01 Completed [facility] 00:00:00 [facility] Remdesivir 2022-05-01 Completed [facility] 00:00:00 [facility] Remdesivir 2022-05-01 Completed [facility] 00:00:00 [facility] Remdesivir 2022-05-01 Completed [facility] 00:00:00 [facility] Remdesivir 2022-05-01 Completed [facility] 00:00:00 [facility] Remdesivir 2022-05-01 Completed [facility] 00:00:00 [facility] Remdesivir 2022-05-01 Completed [facility] 00:00:00 [facility] Remdesivir 2022-05-01 Completed [facility] 00:00:00 [facility] Remdesivir 2022-05-01 Completed [facility] 00:00:00 [facility] Remdesivir 2022-05-01 Completed [facility] 00:00:00 [facility] Remdesivir 2022-05-01 Completed [facility] 00:00:00 [facility] Remdesivir 2022-05-01 Completed [facility] 00:00:00 [facility] Remdesivir 2022-05-01 Completed [facility] 00:00:00 [facility] Remdesivir 2022-05-01 Completed [facility] 00:00:00 [facility] Remdesivir 2022-05-01 Completed [facility] 00:00:00 [facility] Remdesivir 2022-05-01 Completed [facility] 00:00:00 [facility] Remdesivir 2022-05-01 Completed [facility] 00:00:00 [facility] Remdesivir 2022-05-01 Completed [facility] 00:00:00 [facility] Remdesivir 2022-05-01 Completed [facility] 00:00:00 [facility] Remdesivir 2022-05-01 Completed [facility] 00:00:00 [facility] Remdesivir 2022-05-01 Completed [facility] 00:00:00 [facility] Remdesivir 2022-05-01 Completed [facility] 00:00:00 [facility] Remdesivir 2022-05-01 Completed [facility] 00:00:00 [facility] Remdesivir 2022-05-01 Completed [facility] 00:00:00 [facility] Remdesivir 2022-05-01 Completed [facility] 00:00:00 [facility] Remdesivir 2022-05-01 Completed [facility] 00:00:00 [facility] Remdesivir 2022-05-01 Completed [facility] 00:00:00 [facility] Remdesivir 2022-05-01 Completed [facility] 00:00:00 [facility] Remdesivir 2022-05-01 Completed [facility] 00:00:00 [facility] Remdesivir 2022-04-30 Completed [facility] 00:00:00 [facility] Remdesivir 2022-04-30 Completed [facility] 00:00:00 [facility] Remdesivir 2022-04-30 Completed [facility] 00:00:00 [facility] Remdesivir 2022-04-30 Completed [facility] 00:00:00 [facility] Remdesivir 2022-04-30 Completed [facility] 00:00:00 [facility] Remdesivir 2022-04-30 Completed [facility] 00:00:00 [facility] Remdesivir 2022-04-30 Completed [facility] 00:00:00 [facility] Remdesivir 2022-04-30 Completed [facility] 00:00:00 [facility] Remdesivir 2022-04-30 Completed [facility] 00:00:00 [facility] Remdesivir 2022-04-30 Completed [facility] 00:00:00 [facility] Remdesivir 2022-04-30 Completed [facility] 00:00:00 [facility] Remdesivir 2022-04-30 Completed [facility] 00:00:00 [facility] Remdesivir 2022-04-30 Completed [facility] 00:00:00 [facility] Remdesivir 2022-04-30 Completed [facility] 00:00:00 [facility] Remdesivir 2022-04-30 Completed [facility] 00:00:00 [facility] Remdesivir 2022-04-30 Completed [facility] 00:00:00 [facility] Remdesivir 2022-04-30 Completed [facility] 00:00:00 [facility] Remdesivir 2022-04-30 Completed [facility] 00:00:00 [facility] Remdesivir 2022-04-30 Completed [facility] 00:00:00 [facility] Remdesivir 2022-04-30 Completed [facility] 00:00:00 [facility] Remdesivir 2022-04-30 Completed [facility] 00:00:00 [facility] Remdesivir 2022-04-30 Completed [facility] 00:00:00 [facility] Remdesivir 2022-04-30 Completed [facility] 00:00:00 [facility] Remdesivir 2022-04-30 Completed [facility] 00:00:00 [facility] Remdesivir 2022-04-30 Completed [facility] 00:00:00 [facility] Remdesivir 2022-04-30 Completed [facility] 00:00:00 [facility] Remdesivir 2022-04-30 Completed [facility] 00:00:00 [facility] Remdesivir 2022-04-30 Completed [facility] 00:00:00 [facility] Remdesivir 2022-04-30 Completed [facility] 00:00:00 [facility] Remdesivir 2022-04-30 Completed [facility] 00:00:00 [facility] Remdesivir 2022-04-30 Completed [facility] 00:00:00 [facility] Remdesivir 2022-04-30 Completed [facility] 00:00:00 [facility] Remdesivir 2022-04-30 Completed [facility] 00:00:00 [facility] Remdesivir 2022-04-30 Completed [facility] 00:00:00 [facility] Remdesivir 2022-04-30 Completed [facility] 00:00:00 [facility] Remdesivir 2022-04-30 Completed [facility] 00:00:00 [facility] Remdesivir 2022-04-30 Completed [facility] 00:00:00 [facility] Remdesivir 2022-04-30 Completed [facility] 00:00:00 [facility] Remdesivir 2022-04-30 Completed [facility] 00:00:00 [facility] Remdesivir 2022-04-30 Completed [facility] 00:00:00 [facility] Remdesivir 2022-04-30 Completed [facility] 00:00:00 [facility] Remdesivir 2022-04-30 Completed [facility] 00:00:00 [facility] Remdesivir 2022-04-30 Completed [facility] 00:00:00 [facility] Remdesivir 2022-04-30 Completed [facility] 00:00:00 [facility] Remdesivir 2022-04-30 Completed [facility] 00:00:00 [facility] Td 2016-02-26 Completed [facility] 00:00:00 [facility] Td 2016-02-26 Completed [facility] 00:00:00 [facility] Td 2016-02-26 Completed University of [...] Branch Td 2016-02-26 Completed [facility] 00:00:00 [facility] Branch TD, NOS 2016-02-26 Completed [facility] 00:00:00 [facility] Branch TD, NOS 2016-02-26 Completed [facility] 00:00:00 [facility] Branch TD, NOS 2016-02-26 Completed [facility] 00:00:00 [facility] Branch TD, NOS 2016-02-26 Completed [facility] of 00:00:00 [facility] Branch TD, NOS 2016-02-26 Completed University of [...] TD, NOS 2016-02-26 Completed [facility] 00:00:00 [facility] TD, NOS 2016-02-26 Completed [facility] 00:00:00 [facility] Branch TD, NOS 2016-02-26 Completed [facility] 00:00:00 [facility] TD, NOS Unknown Completed [facility] Remdesivir Unknown Completed [facility] Remdesivir Unknown Completed [facility] Remdesivir Unknown Completed [facility] Remdesivir Unknown Completed [facility] Remdesivir Unknown Completed [facility] TD, NOS Unknown Completed [facility] Remdesivir Unknown Completed [facility] Remdesivir Unknown Completed [facility] Remdesivir Unknown Completed [facility] Remdesivir Unknown Completed [facility] Remdesivir Unknown Completed [facility] TD, NOS Unknown Completed [facility] Remdesivir Unknown Completed [facility] Remdesivir Unknown Completed [facility] Remdesivir Unknown Completed [facility] Remdesivir Unknown Completed [facility] Remdesivir Unknown Completed [facility] TD, NOS Unknown Completed [facility] Remdesivir Unknown Completed [facility] Remdesivir Unknown Completed [facility] Remdesivir Unknown Completed [facility] Remdesivir Unknown Completed [facility] Remdesivir Unknown Completed [facility] TD, NOS Unknown Completed [facility] Remdesivir Unknown Completed [facility] Remdesivir Unknown Completed [facility] Remdesivir Unknown Completed [facility] Remdesivir Unknown Completed [facility] Remdesivir Unknown Completed [facility] TD, NOS Unknown Completed [facility] TD, NOS Unknown Completed [facility] TD, NOS Unknown Completed [facility] TD, NOS Unknown Completed [facility] TD, NOS Unknown Completed [facility] Remdesivir Unknown Completed [facility] Remdesivir Unknown Completed [facility] Remdesivir Unknown Completed [facility] Remdesivir Unknown Completed [facility] Remdesivir Unknown Completed [facility] TD, NOS Unknown Completed [facility] Remdesivir Unknown Completed [facility] Remdesivir Unknown Completed [facility] Remdesivir Unknown Completed [facility] Remdesivir Unknown Completed [facility] Remdesivir Unknown Completed [facility] TD, NOS Unknown Completed [facility] Remdesivir Unknown Completed [facility] Remdesivir Unknown Completed [facility] Remdesivir Unknown Completed [facility] Remdesivir Unknown Completed [facility] Remdesivir Unknown Completed [facility] Vital Signs Vital Name Observation Time Observation Value Comments Source Systolic blood 2023-06-24 21:36:00 108 mm[Hg] Univer sity of pressure [facility] Diastolic blood 2023-06-24 21:36:00 77 mm[Hg] Unive rsity of pressure [facility] Heart rate 2023-06-24 21:36:00 124 /min Universi ty of [facility] Body height 2023-06-24 21:36:00 154.9 cm Universi ty [facility] Body weight 2023-06-24 21:36:00 50.758 kg Universi ty [facility] BMI 2023-06-24 21:36:00 21.14 kg/m2 Universi ty [facility] Oxygen saturation in 2023-06-24 21:36:00 100 /min University of Arterial blood by [place] [facility] Pulse oximetry Branch Systolic blood 2023-01-02 16:25:00 123 mm[Hg] Univer sity of [facility] Diastolic blood 2023-01-02 16:25:00 81 mm[Hg] Unive rsity of pressure [facility] Heart rate 2023-01-02 16:25:00 85 /min Universi ty [facility] Body temperature 2023-01-02 16:25:00 37.17 [facility] 2023-01-02 16:25:00 18 /min [facility] O[facility] saturation in 2023-01-02 16:25:00 99 /min [facility] Arterial blood by [place] [facility] Body weight 2023-01-01 23:30:[address] [facility] Medical [place] BMI 2023-01-01 23:30:00 18.30 kg/m2 [facility] [place] Body height 2022-12-31 03:57:00 162.6 cm Universi ty of [facility] Systolic blood 2023-01-01 14:00:00 115 mm[Hg] Univer sity of pressure [facility] Diastolic blood 2023-01-01 14:00:00 75 mm[Hg] Unive rsity of pressure [facility] Heart rate 2023-01-01 14:00:00 72 /min Universi ty of [facility] Respiratory rate 2023-01-01 14:00:00 12 /min Univ ersity of [facility] Oxygen saturation in 2023-01-01 14:00:00 95 /min [facility] Arterial blood by [place] [facility] Body temperature 2023-01-01 13:54:00 36.39 Colette Univ ersity of [facility] Body height 2022-12-31 03:57:00 162.6 cm Universi ty of [facility] Body weight 2022-12-31 03:57:00 49.5 kg Universi ty [facility] BMI 2022-12-31 03:57:00 18.30 kg/m2 Universi ty [facility] Systolic blood 2022-11-30 16:24:00 123 mm[Hg] Univer sity of pressure [facility] Diastolic blood 2022-11-30 16:24:00 85 mm[Hg] Unive rsity of pressure [facility] Heart rate 2022-11-30 16:24:00 93 /min Universi ty [facility] Body height 2022-11-30 16:24:00 162.6 cm Universi ty of [facility] Body weight 2022-11-30 16:24:00 46.72 kg Universi ty [facility] BMI 2022-11-30 16:24:00 17.68 kg/m2 [facility] ty [facility] Oxygen saturation in 2022-11-30 16:24:00 100 /min [facility] Arterial blood by [place] [facility] Systolic blood 2022-07-27 18:27:00 116 mm[Hg] Univer sity of pressure [facility] Diastolic blood 2022-07-27 18:27:00 83 mm[Hg] Unive rsity of pressure [facility] Heart rate 2022-07-27 18:27:00 107 /min Universi ty [facility] Body height 2022-07-27 18:27:00 162.6 cm Universi ty [facility] Body weight 2022-07-27 18:27:00 47.854 kg Universi ty of [facility] BMI 2022-07-27 18:27:00 18.11 kg/m2 Universi ty [facility] Oxygen saturation in 2022-07-27 18:27:00 97 /min University of Arterial blood by [facility] Pulse oximetry Branch Systolic blood 2022-06-01 16:42:00 114 mm[Hg] Univer sity of pressure [facility] Diastolic blood 2022-06-01 16:42:00 80 mm[Hg] [facility] Heart rate 2022-06-01 16:42:00 103 /min Universi [facility] Body temperature 2022-06-01 16:42:00 36.61 [facility] [facility] Body height 2022-06-01 16:42:00 162.6 cm Universi [facility] Body weight 2022-06-01 16:42:00 51.03 kg Universi ty [facility] BMI 2022-06-01 16:42:00 19.31 kg/m2 Universi ty [facility] Oxygen saturation in 2022-06-01 16:42:00 97 /min University of Arterial blood by [facility] Pulse oximetry Branch Procedures Procedure Date / Time Performing Source Performed Clinician EXTERNAL PROVIDER RECORDS 2023-01-09 [facility] Planokiesha frost of 05:01:00 Unassigned, No [facility] Name Branch PHOSPHORUS 2023-01-02 Yelena Mcfadden 08:59:00 [facility] MAGNESIUM 2023-01-02 Dasha Browne [facility] 08:59:00 [facility] HEPATIC FUNCTION PANEL ([id number]) 2023-01-02 Anand Mcfadden niversity of (ALB,T.PRO,BILI 08:59:00 [facility],BU/BC,ALT,AST,ALK PHOS) [place] BASIC METABOLIC PANEL (NA, K, CL, 2023-01-02 Ida Browne i CO2, GLUCOSE, BUN, CREATININE, CA) 08:59:00 [facility] CBC WITH DIFF 2023-01-02 Dasha Browne [place] of 08:59:00 [facility] PROTHROMBIN TIME / INR 2023-01-02 [facility]:59[facility]00 [facility] ACTIVATED PARTIAL THRMPLAS GARO 2023-01-02 Anthony Leiva, niversity of 08:59:00 [facility] FIBRINOGEN 2023-01-02 Anthony Leiva [place] of 08:59:00 [facility] PHOSPHORUS 2023-01-02 [facility] 08:59:00 [facility] MAGNESIUM 2023-01-02 [facility] of 08:59:00 [facility] HEPATIC FUNCTION PANEL ([id number]) 2023-01-02 Anthony Leiva niversity of (ALB,T.PRO,BILI 08:59:00 [facility],BU/BC,ALT,AST,ALK PHOS) [place] BASIC METABOLIC PANEL (NA, K, CL, 2023-01-02 [facility] of CO2, GLUCOSE, BUN, CREATININE, CA) 08:59:00 [facility] CBC WITH DIFF 2023-01-02 [facility] of 08:59:00 [facility] PROTHROMBIN TIME / INR 2023-01-02 Anthony Leiva [facility] y of 08:59:00 [facility] ACTIVATED PARTIAL THRMPLAS GARO 2023-01-02 [facility] n[facility] of 08:59:00 [facility] FIBRINOGEN 2023-01-02 Anthony Leiva [place] of 08:59:00 [facility] CBC WITH DIFF 2023-01-01 [facility] 16:25:00 [facility] CBC WITH DIFF 2023-01-01 [facility] 16:25:00 [facility] EGD (ENDO) 2023-01-01 Person, [facility] of 14:53:20 [facility] EGD (ENDO) 2023-01-01 Person, [facility] of 14:53:20 [facility] ESOPHAGOGASTRODUODENOSCOPY 2023-01-01 Tati Nowak [facility] [place] rsity of 14:36:00 [facility] ESOPHAGOGASTRODUODENOSCOPY 2023-01-01 Tati Nowak [facility] rsity of 14:36:00 [facility] PREPARE PACKED RBC 2023-01-01 [facility] of 12:28:32 F [facility] PREPARE PACKED RBC 2023-01-01 [facility] of 12:28:32 F [facility] TRANSFUSE PACKED RBC 2023-01-01 [facility] 11:25[facility]00 [facility] TRANSFUSE PACKED RBC 2023-01-01 [facility] 11:25:00 [facility] PREPARE PACKED RBC 2023-01-01 [facility] 11:08:21 [facility] PREPARE PACKED RBC 2023-01-01 [facility] 11:08:21 [facility] PHOSPHORUS 2023-01-01 [facility] 08:38:00 [facility] MAGNESIUM 2023-01-01 [facility] [place] 08:38:00 [facility] HEPATIC FUNCTION PANEL ([id number]) 2023-01-01 Anthony Leiva niversity of (ALB,T.PRO,BILI 08:38:00 [facility],BU/BC,ALT,AST,ALK PHOS) [place] BASIC METABOLIC PANEL (NA, K, CL, 2023-01-01 [facility] [place] CO2, GLUCOSE, BUN, CREATININE, CA) 08:38:00 [facility] CBC WITH DIFF 2023-01-01 Anthony Leiva [facility] 08:38:00 [facility] PROTHROMBIN TIME / INR 2023-01-01 [facility] 08:38[facility]00 [facility] ACTIVATED PARTIAL THRMPLAS GARO 2023-01-01 Anand Mcfadden niversity of 08:38:00 [facility] FIBRINOGEN 2023-01-01 Anthony Leiva [facility] 08:38:00 [facility] PHOSPHORUS 2023-01-01 Anthony Leiva [facility] 08:38:00 [facility] MAGNESIUM 2023-01-01 Anthony Leiva [facility] 08:38:00 [facility] HEPATIC FUNCTION PANEL ([id number]) 2023-01-01 Anthony Leiva niversity of (ALB,T.PRO,BILI 08:38:00 [facility],BU/BC,ALT,AST,ALK PHOS) Branch BASIC METABOLIC PANEL (NA, K, CL, 2023-01-01 [facility] [place] CO2, GLUCOSE, BUN, CREATININE, CA) 08:38:00 [facility] CBC WITH DIFF 2023-01-01 [facility] [place] 08:38:00 [facility] PROTHROMBIN TIME / INR 2023-01-01 [facility] 08:38[facility]00 [facility] ACTIVATED PARTIAL THRMPLAS GARO 2023-01-01 Anthony Leiva niversity of 08:38:00 [facility] FIBRINOGEN 2023-01-01 Anthony Leiva [facility] 08:38:00 [facility] TRANSFERRIN 2022-12-31 [facility] 20:26:00 [facility] CBC WITH DIFF 2022-12-31 [facility] 20:26:00 [facility] TISSUE TRANSGLUTAMINASE (TTG) IGA 2022-12-31 [facility] [place] 20:26:00 [facility] TRANSFERRIN 2022-12-31 [facility] [place] 20:26:00 [facility] CBC WITH DIFF 2022-12-31 Ladeena [facility] 20:26:00 [facility] TISSUE TRANSGLUTAMINASE (TTG) IGA 2022[facility]12-31 [facility] [facility] [place] 20[facility]26[facility]00 [facility] PHOSPHORUS 2022-12-31 [facility] of 11:02:00 [facility] MAGNESIUM 2022-12-31 [facility] of 11:02:00 [facility] FERRITIN SERUM 2022-12-31 [facility] [place] 11:02:00 [facility] IRON 2022-12-31 Criseldamn AbbieW[facility] [place] 11:02:00 [facility] BASIC METABOLIC PANEL (NA, K, CL, 2022-12-31 Gu, [facility] of CO2, GLUCOSE, BUN, CREATININE, CA) 11:02:00 [facility] CBC WITH DIFF 2022-12-31 [facility] 11:02:00 [facility] PHOSPHORUS 2022-12-31 [place], [facility] 11:02:00 [facility] MAGNESIUM 2022-12-31 [place], [facility] 11:02:00 [facility] FERRITIN SERUM 2022-12-31 [facility] :02:00 [facility] IRON 2022-12-31 [facility] :: [facility] BASIC METABOLIC PANEL (NA, K, CL, 2022-12-31 [facility], [facility] of CO2, GLUCOSE, BUN, CREATININE, CA) 11:02: [facility] CBC WITH DIFF 2022-12-31 Critical access hospital 11:02:00 [facility] TRANSFUSE PACKED RBC 2022-12-31 Critical access hospital 06:15:00 [facility] TRANSFUSE PACKED RBC 2022-12-31 [facility] of 06:15:00 [facility] PREPARE PACKED RBC 2022-12-31 [facility] of 05:50:01 [facility] PREPARE PACKED RBC 2022-12-31 [facility], [facility] of 05:50:01 [facility] GASTRIN 2022-12-31 [facility] 04:24:00 [facility] PHOSPHORUS 2022-12-31 [place], [facility] of 04:24:00 [facility] MAGNESIUM 2022-12-31 [facility] of 04:24:00 [facility] BASIC METABOLIC PANEL (NA, K, CL, 2022-12-31 [facility], [facility] of CO2, GLUCOSE, BUN, CREATININE, CA) 04:24:00 [facility] CBC WITH DIFF 2022-12-31 [facility] of 04:24:00 [facility] PROTHROMBIN TIME / INR 2022-12-31 [facility] y of 04:24:00 [facility] ACTIVATED PARTIAL THRMPLAS GARO 2022-12-31 [facility] of 04:24:00 [facility] MRSA / MSSA SCREEN BY PCR, ANGIE 2022-12-31 [facility] of 04:24:00 [facility] GASTRIN 2022-12-31 [facility] of 04:24:00 [facility] PHOSPHORUS 2022-12-31 [facility], [facility] of 04:24:00 [facility] MAGNESIUM 2022-12-31 [facility], [facility] of 04:24:00 [facility] BASIC METABOLIC PANEL (NA, K, CL, 2022-12-31 [facility] of CO2, GLUCOSE, BUN, CREATININE, CA) 04:24:00 [facility] CBC WITH DIFF 2022-12-31 [facility] of 04:24:00 [facility] PROTHROMBIN TIME / INR 2022-12-31 [facility] y of 04:24:00 [facility] ACTIVATED PARTIAL THRMPLAS GARO 2022-12-31 [facility] niversity of 04:24:00 [facility] MRSA / MSSA SCREEN BY PCR, ANGIE 2022-12-31 [facility] of 04:24:00 [facility] XR KUB 2022-12-31 [facility] of 02:49:25 [facility] XR KUB 2022-12-31 [facility] of 02:49:25 [facility] TRANSFUSE PACKED RBC 2022-12-31 [facility] y of 02:03:00 F [facility] TRANSFUSE PACKED RBC 2022-12-31 [facility] y of 02:03:00 F [facility] XR CHEST 1 VW 2022-12-31 Tatyanasamreen [facility] of 01:26:44 F [facility] XR CHEST 1 VW 2022-12-31 marycarmensamreen [facility] of 01:26:44 F [facility] CT ANGIOGRAM ABDOMEN/PELVIS 2022-12-31 Shilpa Barbosa Un [facility] of 01:25:42 F [facility] CT ANGIOGRAM ABDOMEN/PELVIS 2022-12-31 Shilpa Barbosa Un i[facility]ity of 01:25:42 F [facility] POCT TEST 2022-12-31 [facility] of 00:56:00 F [facility] POCT TEST 2022-12-31 [facility] of 00:56:00 F [facility] HB ABO GROUPING 2022-12-31 [facility] of 00:42:00 F [facility] HB ABO GROUPING 2022-12-31 [facility] of 00:42:00 F [facility] URINALYSIS 2022-12-31 [facility] of 00:26:00 F [facility] URINALYSIS 2022-12-31 [facility] of 00:26:00 F [facility] LIPASE 2022-12-30 [facility] of 23:11:00 F [facility] MAGNESIUM 2022-12-30 [facility] of 23:11:00 F [facility] COMP. METABOLIC PANEL ([id number]) 2022-12-30 [facility] of 23:11:00 F [facility] CBC WITH DIFF 2022-12-30 [facility] of 23:11:00 F [facility] LIPASE 2022-12-30 [facility] of 23:11:00 F [facility] MAGNESIUM 2022-12-30 [facility] of 23:11:00 F [facility] COMP. METABOLIC PANEL ([id number]) 2022-12-30 [facility] of 23:11:00 F [facility] CBC WITH DIFF 2022-12-30 [facility] of 23:11:00 F [facility] HOSPITAL ADMISSION 2022-12-30 [facility] of 05:01:00 Unassigned, No [facility] HOSPITAL ADMISSION 2022-12-30 [facility] 05:01:00 Unassigned, No [facility] ENDOSCOPY PROCEDURE DOCUMENTATION 2022-12-30 [facility] of 05:01:00 Unassigned, No [facility] CBC WITH DIFF 2022-06-01 [facility] of 17:35:00 [facility] Encounters Start End Encounter Admission Attending Care Care Encounter Source Date/Time Date/Time Type Type Clinicians Facility Department ID 2021-08-14 Outpatient R JOCELYNERICK [facility] ZOLTAN [id number] Univers 11:29:47 JEMIMA bernadette [facility] 2021-08-11 Outpatient R BERTA [facility] ZOLTAN [id number] Univers 17:24:29 ANDREW [facility] 2021-08-10 Emergency [facility] [id number] Univers 23:51:50 ity [facility] 2023-07-23 2023-07-23 [facility] 1.2.840.114 [id number] Univers 00:00:00 00:00:00 Tucker HEALTH 350.1.13.10 it y of [place] 4.2.7.2.686 Maxim as JORGE?BLEA [id number] [address] OFFICE [facility] 2023-07-16 2023-07-16 [facility] 1.2.840.114 [id number] Univers 00:00:00 00:00:00 Tucker HEALTH 350.1.13.10 it y of [place] 4.2.7.2.686 Maxim as JORGE?BLEA [id number] [address] OFFICE [facility] 2023-07-15 2023-07-15 [facility] 1.2.840.114 [id number] Univers 00:00:00 00:00:00 Tucker HEALTH 350.1.13.10 it y of [place] 4.2.7.2.686 Maxim as JORGE?BLEA [id number] [address] OFFICE [facility] 2023-06-24 2023-06-24 [facility] [id number] Univers 16:30:00 17:29:16 TUCKER bernadette [facility] 2023-06-24 2023-06-24 [facility] 1.2.840.114 [id number] Univers 16:30:00 17:29:16 Visit Tucker HEALTH 350.1.13.10 it y of [place] 4.2.7.2.686 Maxim as JORGE?BLEA [id number] [address] OFFICE [facility] 2023-06-20 2023-06-20 Outpatient R [facility] [id number] Univers 10:00:00 10:00:00 ity [facility] 2023-06-18 2023-06-18 [facility] 1.2.840.114 [id number] Univers 00:00:00 00:00:00 Tucker HEALTH 350.1.13.10 it y of [place] 4.2.7.2.686 Maxim as JORGE?BLEA [id number] [address] OFFICE [facility] 2023-06-17 2023-06-17 [facility] 1.2.840.114 [id number] Univers 00:00:00 00:00:00 Tucker HEALTH 350.1.13.10 it y of [place] 4.2.7.2.686 Maxim as JORGE?BLEA [id number] [address] 2023-06-12 2023-06-12 [facility] 1.2.840.114 [id number] Univers 00:00:00 00:00:00 Tucker HEALTH 350.1.13.10 it y of [place] 4.2.7.2.686 Maxim as JORGE?BLEA [id number] [address] 2023-06-03 2023-06-03 Outpatient R RALF [facility] [id number] Univers 11:30:00 11:30:00 TUCKER ity [facility] 2023-05-28 2023-05-28 [facility] 1.2.840.114 [id number] Univers 00:00:00 00:00:00 Tucker HEALTH 350.1.13.10 it y of [place] 4.2.7.2.686 Maxim as JORGE?BLEA [id number] [address] 2023-04-09 2023-04-09 Outpatient R BERTA [facility] [id number] Univers 09:30:00 09:30:00 ANDREW beaz f [facility] 2023-03-19 2023-03-19 Patient Barney [facility] 1.2.840.114 [id number] Univers 00:00:00 00:00:00 Secure MARTA Velez 350.1.13.10 ity of [place] [id number] [address] [facility] 2023-03-18 2023-03-18 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 [facility] 1.2.840.114 [id number] Univers 15:45:00 16:00:00 Visit Meme VanegasPEC 350.1.13.10 it[place] [id number] [address] [facility]IC 2023-03-18 2023-03-18 Outpatient R ROMINA [facility] [id number] Univers 14:30:00 15:30:54 MEME copeland [facility] 2023-03-18 2023-03-18 Office CorleyElizabeth Dutton [facility] 1.2 .840.114 [id number] Univers 14:30:00 15:30:54 [facility] 350.1.13.10 it[place] [id number] [address] [facility] 2023-03-01 2023-03-01 [facility] 1.2.840.114 [id number] Univers 00:00:00 00:00:00 Tucker HEALTH 350.1.13.10 it y of [place] 4.2.7.2.686 Maxim as JORGE?BLEA [id number] [address] MEDICAL OFFICE BUILDING 2023-02-27 2023-02-27 [facility] 1.2.840.114 [id number] Univers 00:00:00 00:00:00 Tucker HEALTH 350.1.13.10 it y of [place] 4.2.7.2.686 Maxim as JORGE?BLEA [id number] [address] MEDICAL OFFICE [facility] 2023-02-26 2023-02-26 Telephone Emeka [facility] 1.2.303.673 [id number] Univers 00:00:00 00:00:00 José Manuel MULTISPEC 350.1.13.10 ity of [place] [id number] [facility] AND [address] DIABETES CLINIC 2023-01-29 2023-01-29 Patient Chuck Phan [facility] 1.2.840.114 [id number] Univers 00:00:00 00:00:00 Secure Msg Y HEALTH 350.1.13.10 ity of CL[place]ICS 4.2.7.2.[place] [id number] [place] [address] [place] 2023-01-18 2023-01-18 [facility]ena [facility] 1.2.840.114 [id number] Univers 00:00:00 00:00:00 Tucker HEALTH 350.1.13.10 it y of [place] 4.2.7.2.686 Maxim as JORGE?BLEA [id number] [address] MEDICAL OFFICE [facility] 2023-01-18 2023-01-18 [facility] 1.2.840.114 [id number] Univers 00:00:00 00:00:00 Tucker HEALTH 350.1.13.10 it y of [place] 4.2.7.2.686 Maxim as JORGE?BLEA [id number] [address] MEDICAL OFFICE [facility] 2023-01-17 2023-01-17 [facility] 1.2.840.114 [id number] Univers 00:00:00 00:00:00 Tucker HEALTH 350.1.13.10 it y of [place] 4.2.7.2.686 Maxim as JORGE?BLEA [id number] [address] OFFICE [facility] 2023-01-16 2023-01-16 Office Shruthi Wise [facility] 1.2.840. 114 [id number] Univers 14:00:00 14:15:00 Visit Meme Vanegas MULTISPEC 350.1.13.10 it[place] [id number] [facility] AND [place] [address] [place] DIABETES CLINIC 2023-01-16 2023-01-16 Outpatient R ROMINA [facility] [id number] Univers 14:00:00 14:00:00 MEME ity o f [facility] 2023-01-11 2023-01-11 Telephone Emeka [facility] 1.2.094.805 [id number] Univers 00:00:00 00:00:00 José Manuel SPECIALTY 350.1.13.10 [facility] 4.2.7.2.686 Maxim as CENTER AT [id number] Nd sebasyousif LEWIS 072 [facility] 2023-01-11 2023-01-11 Telephone Ralf [facility] 1.2.964.053 [id number] Univers 00:00:00 00:00:00 Tucker HEALTH 350.1.13.10 it y of [place] 4.2.7.2.686 Maxim as JORGE?BLEA [id number] Nd sebasyousif [place] [address] MEDICAL OFFICE BUILDING 2023-01-09 2023-01-09 Orders Doctor EMEKA 1.2.840.114 [id number] Univers 00:00:00 00:00:00 Only Unassigned, MARIMAR 350.1.13.10 ity of [place] [facility] 4.2.7.2.686 Maxim as [id number] [facility] [address] 2023-01-06 2023-01-06 Patient Phan Chuck [facility] 1.2.840.114 1 [id number] Univers 00:00:00 00:00:00 Secure Msg Y HEALTH 350.1.13.10 ity of CL[place] 4.2.[place].2.[place] [id number] [facility] [address] 2023-01-03 2023-01-03 Transition [facility] 1.2.840.114 [id number] Univers 00:00:00 00:00:00 of Care Lovely CONROY 350.1.13.10 i ty of [place].2.[place] [id number] [facility] [address] 2022-12-30 2023-01-02 Inpatient X [facility] [id number] Univers 17:21:00 17:36:00 YE it y of [facility] 2022-12-30 2023-01-02 [facility] Shilpa Barbosa 1.2.8 40.114 [id number] Univers 17:21:00 17:36:00 Encounter Bigg Dodd 350.1.13.10 ity of [facility] 4.2.7.2.686 [place] [id number] Medical [address] 2023-01-01 2023-01-01 Surgery [facility] 1.2.924.334 [id number] Univers 10:02:00 10:49:00 Akshata ICAL 350.1.13.10 it y of [place] 4.2.7.2.686 Maxim as BLDG [id number] [facility] [address] 2022-12-28 2022-12-28 Out[facility] [id number] Univers 00:00:00 00:00:00 TUCKER lee of [facility] 2022-12-25 2022-12-25 Patient Doctor RAHUL 1.2.870.402 [id number] Univers 00:00:00 00:00:00 Secure Msg Unassigned, Y HEALTH 350.1.13.10 ity of [place] [facility] 4.2.7.2.[place] [id number] [facility] [address] 2022-12-05 2022-12-05 Telephone [facility] 1.2.609.773 [id number] Univers 00:00:00 00:00:00 Tucker HEALTH 350.1.13.10 it y of [place] 4.2.7.2.686 Maxim as JORGE?BLEA [id number] Nd amor [address] MEDICAL OFFICE BUILDING 2022-12-03 2022-12-03 Patient Doctor EMEKA 1.2.840.114 [id number] Univers 00:00:00 00:00:00 Secure Msg Unassigned, MARIMAR 350.1.13.10 ity of [facility] 4.2.7.2.686 Maxim as [id number] [address] 2022-11-30 2022-11-30 Outpatient Hardik ARAMBULA [facility] [id number] Univers 09:30:00 10:48:41 TUCKER lee [facility] 2022-11-30 2022-11-30 [facility] 1.2.840.114 [id number] Univers 09:30:00 10:48:41 Visit Tucker HEALTH 350.1.13.10 it y of [place] 4.2.7.2.686 Maxim as JORGE?BLEA [id number] [address] OFFICE [facility] 2022-10-15 2022-10-15 Outpatient Hardik BRADFORD [facility] [id number] Univers 12:30:00 12:30:00 OCHOA lee [facility] 2022-10-11 2022-10-11 [facility]ena [facility] 1.2.840.114 [id number] Univers 00:00:00 00:00:00 Tucker HEALTH 350.1.13.10 it y of [place] 4.2.7.2.686 Maxim as JORGE?BLEA [id number] [address] OFFICE [facility] 2022-10-10 2022-10-10 [facility] 1.2.840.114 [id number] Univers 00:00:00 00:00:00 Tucker HEALTH 350.1.13.10 it y of [place] 4.2.7.2.686 Maxim as JORGE?BLEA [id number] [address] OFFICE [facility] 2022-10-08 2022-10-08 [facility] 1.2.840.114 [id number] Univers 00:00:00 00:00:00 Tucker HEALTH 350.1.13.10 it y of [place] 4.2.7.2.686 Maxim as JORGE?BLEA [id number] [address] MEDICAL OFFICE [facility] 2022-09-12 2022-09-12 [facility] 1.2.840.114 [id number] Univers 00:00:00 00:00:00 Tucker HEALTH 350.1.13.10 it y of [place] 4.2.7.2.686 Maxim as JORGE?BLEA [id number] [address] OFFICE [facility] 2022-09-03 2022-09-03 Outpatient [facility] [id number] Univers 11:00:00 11:00:00 [facility] 2022-09-03 2022-09-03 Outpatient [facility] [id number] Univers 11:00:00 11:00:00 [facility] 2022-08-21 2022-08-21 [facility] 1.2.840.114 [id number] Univers 00:00:00 00:00:00 Tucker HEALTH 350.1.13.10 it y of [place] 4.2.7.2.686 Maxim as JORGE?BLEA [id number] [address] OFFICE [facility] 2022-08-02 2022-08-02 [facility] 1.2.840.114 [id number] Univers 00:00:00 00:00:00 Secure Msg Cece M HEALTH 350.1.13.10 ity of [place] 4.2.7.2.686 Maxim as JORGE?BLEA [id number] [address] 2022-08-02 2022-08-02 Patient [facility] 1.2.840.114 [id number] Univers 00:00:00 00:00:00 Secure Msg Tucker HEALTH 350.1.13.10 ity of [place] 4.2.7.2.686 Maxim as JORGE?BLEA [id number] [address] OFFICE [facility] 2022-07-30 2022-07-30 Telephone [facility] 1.2.067.663 [id number] Univers 00:00:00 00:00:00 Tucker HEALTH 350.1.13.10 it y of [place] 4.2.7.2.686 Maxim as JORGE?BLEA [id number] Nd amor [address] MEDICAL OFFICE [facility] 2022-07-27 2022-07-27 Outpatient R RALF [facility] [id number] Univers 13:30:00 15:11:23 TUCKER lee [facility] 2022-07-27 2022-07-27 Office [facility] 1.2.840.114 [id number] Univers 13:30:00 15:11:23 Visit [facility] 350.1.13.10 it [facility] 4.2.7.2.686 Maxim as JORGE?BLEA [id number] [address] OFFICE [facility] 2022-07-27 2022-07-27 Airplane Cleaner Lab, [facility] 1.2.840.1 14 [id number] Univers 14:15:00 14:30:00 Visit Ralf Tucker HEALTH 350.1.13.10 ity of [place] 4.2.7.2.686 Maxim as JORGE?BLEA [id number] [facility] [address] MEDICAL OFFICE [facility] 2022-07-19 2022-07-19 Refill [facility] 1.2.840.114 [id number] Univers 00:00:00 00:00:00 Dorota HEALTH 350.1.13.10 ity [facility] 4.2.7.2.686 Maxim as JORGE?BLEA [id number] [address] OFFICE [facility] 2022-07-16 2022-07-16 Outpatient R RALF [facility] [id number] Univers 14:00:00 14:00:00 TUCKER lee [facility] 2022-06-28 2022-06-28 Ref[facility]ena [facility] 1.2.840.114 [id number] Univers 00:00:00 00:00:00 Dorota HEALTH 350.1.13.10 ity of [place] 4.2.7.2.686 Maxim as JORGE?BLEA [id number] [address] OFFICE [facility] 2022-06-06 2022-06-06 Refill [facility] 1.2.840.114 [id number] Univers 00:00:00 00:00:00 Tucker HEALTH 350.1.13.10 it y of [place] 4.2.7.2.686 Maxim as JORGE?BLEA [id number] [facility] [address] MEDICAL OFFICE [facility] 2022-06-04 2022-06-04 Telephone [facility] 1.2.321.552 [id number] Univers 00:00:00 00:00:00 Dorota HEALTH 350.1.13.10 ity of [place] 4.2.7.2.686 Maxim as JORGE?BLEA [id number] [address] MEDICAL OFFICE [facility] 2022-06-02 2022-06-02 Patient Doctor EMEKA 1.2.840.114 [id number] Univers 00:00:00 00:00:00 Secure Msg Unassigned, MARIMAR 350.1.13.10 ity of [place] [facility] 4.2.7.2.686 Maxim as [id number] [address] 2022-06-01 2022-06-01 Airplane Cleaner Lab, [facility] 1.2.840.1 14 [id number] Univers 12:30:00 12:45:00 Visit [facility] 350.1.13.10 ity of [place] 4.2.7.2.686 Maxim as JORGE?BLEA [id number] [facility] [address] MEDICAL OFFICE [facility] 2022-06-01 2022-06-01 Outpatient [facility] [id number] Univers 11:20:00 12:13:24 DOROTA ity [facility] 2022-06-01 2022-06-01 Office [facility] 1.2.840.114 [id number] Univers 11:20:00 12:13:24 Visit [facility] 350.1.13.10 ity of [place] 4.2.7.2.686 Maxim as JORGE?BLEA [id number] [address] MEDICAL OFFICE [facility] 2022-06-01 2022-06-01 Outpatient [facility] [id number] Univers 11:20:00 12:13:24 DOROTA ity [facility] 2022-06-01 2022-06-01 Outpatient [facility] [id number] Univers 11:20:00 12:13:24 [facility] 2022-06-01 2022-06-01 [facility] 1.2.840.114 [id number] Univers 00:00:00 00:00:00 Dorota HEALTH 350.1.13.10 ity of [facility] 4.2.7.2.686 Maxim as JORGE?BLEA [id number] [address] OFFICE [facility] 2022-05-31 2022-05-31 Emanuel [facility] 1.2.840.114 [id number] Univers 00:00:00 00:00:00 Nam HEALTH 350.1.13.10 it y of [place] 4.2.7.2.686 Maxim as JORGE?BLEA [id number] [address] 2022-05-31 2022-05-31 Dionte Arambula [facility] 1.2.759.315 [id number] Univers 00:00:00 00:00:00 Tucker HEALTH 350.1.13.10 it y of [place] 4.2.7.2.686 Maxim as JORGE?BLEA [id number] [address] 2022-05-28 2022-05-28 Outpatient [facility] [id number] Univers 16:20:00 16:20:00 [facility] 2022-05-24 2022-05-24 Outpatient [facility] [id number] Univers 16:20:00 16:20:00 [facility] 2022-05-07 2022-05-07 [facility] 1.2.840.114 [id number] Univers 00:00:00 00:00:00 [facility] 350.1.13.10 it y of [place] 4.2.7.2.686 Maxim as JORGE?BLEA [id number] [address] OFFICE [facility] 2022-05-07 2022-05-07 Transition Deborde, SHEARN 1.2.840.114 [id number] Univers 00:00:00 00:00:00 of Care Karoline [place] 350.1.13.10 i ty [place] [id number] [facility] [address] 2022-04-30 2022-05-05 Inpatient X [facility] [id number] Univers 14:21:00 13:34:00 CANDACE ity of [facility] 2022-04-30 2022-05-05 [facility] Gary Price [facility] 1.2.840. 114 [id number] Univers 14:21:00 13:34:00 Encounter Candace Walsh 350.1.13.10 ity of [place] 4.2.7.2.686 [facility] [id number] [facility] [address] [place] 2022-04-30 2022-04-30 Telephone Ralf [facility] [id number] Univers 00:00:00 00:00:00 Tucker HEALTH 350.1.13.10 it y of [place] 4.2.7.2.686 Maxim as JORGE?BLEA [id number] [address] MEDICAL OFFICE [facility] 2022-04-30 2022-04-30 Emanuel Duncan [facility] 1.2.840.114 [id number] Univers 00:00:00 00:00:00 Nam HEALTH 350.1.13.10 it y of [place] 4.2.7.2.686 Maxim as JORGE?BLEA [id number] [address] MEDICAL OFFICE [facility] 2022-04-07 2022-04-07 Refheena Stevens [facility] 1.2.840.114 [id number] Univers 00:00:00 00:00:00 Ketty HEALTH 350.1.13.10 it y of [place] 4.2.7.2.686 Maxim as JORGE?BLEA [id number] [address] MEDICAL OFFICE [facility] 2022-03-20 2022-03-20 [facility] 1.2.941.122 [id number] Univers 00:00:00 00:00:00 Tucker HEALTH 350.1.13.10 it y of [place] 4.2.7.2.686 Maxim as JORGE?BLEA [phone] [address] OFFICE [facility] 2022-03-19 2022-03-19 [facility] 1.2.946.437 [id number] Univers 00:00:00 00:00:00 Tucker HEALTH 350.1.13.10 it y of [place] 4.2.7.2.686 Maxim as JORGE?BLEA [phone] [address] OFFICE [facility] 2022-03-14 2022-03-14 [facility] 1.2.778.516 [id number] Univers 00:00:00 00:00:00 Tucker HEALTH 350.1.13.10 it y of [place] 4.2.7.2.686 Maxim as JORGE?BLEA [phone] [address] OFFICE [facility] 2022-03-13 2022-03-13 [facility] 1.2.840.114 [id number] Univers 00:00:00 00:00:00 Tucker HEALTH 350.1.13.10 it y of [place] 4.2.7.2.686 Maxim as JORGE?BLEA [phone] [address] OFFICE [facility] 2022-02-12 2022-02-12 [facility] 1.2.840.114 [id number] Univers 00:00:00 00:00:00 Tucker HEALTH 350.1.13.10 it y of [place] 4.2.7.2.686 Maxim as JORGE?BLEA [id number] [address] OFFICE [facility] 2022-01-19 2022-01-19 [facility] [id number] Univers 15:00:00 15:00:00 TUCKERJANINE lee [facility] 2021-12-27 2021-12-27 Telephone [facility] 1.2.840.114 [id number] Univers 00:00:00 00:00:00 Kiel SPECIALTY 350.1.13.10 ity of [facility] 4.2.7.2.686 [place] AT [phone] Nd amor LEWIS [address] [place] [address] 2021-12-26 2021-12-26 Outpatient R YOHAN [facility] [id number] Univers 10:30:00 10:30:00 KIEL lee [facility] 2021-12-05 2021-12-05 Out[facility] [id number] Univers 10:30:00 10:30:00 TUCKER lee [facility] 2021-11-30 2021-11-30 Outpatient Hardik [facility] [id number] Univers 10:30:00 10:30:00 TUCKER [facility] 2021-11-30 2021-11-30 Patient Doctor [facility] 1.2.840.114 [id number] Univers 00:00:00 00:00:00 Secure Msg Unassigned, HEALTH 350.1.13.10 ity of [place] 4.2.7.2.686 Maxim as JORGE?BLEA [phone] [address] MEDICAL OFFICE [facility] 2021-11-13 2021-11-13 [facility] 1.2.680.731 [id number] Univers 00:00:00 00:00:00 Tucekr HEALTH 350.1.13.10 it y of [place] 4.2.7.2.686 Maxim as JORGE?BLEA [phone] [address] MEDICAL OFFICE [facility] 2021-10-16 2021-10-16 [facility] 1.2.840.114 [id number] Univers 00:00:00 00:00:00 Tucker HEALTH 350.1.13.10 it y of [place] 4.2.7.2.686 Maxim as JORGE?BLEA [phone] [address] MEDICAL OFFICE [facility] 2021-10-03 2021-10-03 [facility] 1.2.840.114 [id number] Univers 00:00:00 00:00:00 Management Michelle CONROY 350.1.13.10 ity of [place]2.7.2.686 [place] [id number] [facility] [address] 2021-09-21 2021-09-21 [facility] 1.2.954.189 [id number] Univers 00:00:00 00:00:00 Secure Msg Kiel SPECIALTY 350.1.13.10 ity of [place].2.7.2.686 [place] CENTER AT [phone] Nd amor LEWIS 198 [facility] 2021-09-19 2021-09-19 [facility] 1.2.840.114 [id number] Univers 00:00:00 00:00:00 José Manuel SPECIALTY 350.1.13.10 ity of [place] CARE 4.2.7.2.686 Maxim as CENTER AT [phone] Nd amor LEWIS 2 [facility] 2021-09-18 2021-09-18 Office [facility] 1.2.872.319 [id number] Univers 12:57:33 13:44:40 Visit Kiel SPECIALTY 350.1.13.10 ity of [facility] 4.2.7.2.686 [place] CENTER AT [phone] Nd amor LEWIS 198 [facility] 2021-09-18 2021-09-18 [facility] [id number] Univers 12:30:00 13:44:40 KIEL analiy [facility] 2021-09-18 2021-09-18 Out[facility] [id number] Univers 12:30:00 12:30:00 KIEL ity [facility] 2021-09-18 2021-09-18 [facility] 1.2.840.114 [id number] Univers 00:00:00 00:00:00 José Manuel SPECIALTY 350.1.13.10 ity of [place] CARE 4.2.7.2.686 Maxim as CENTER AT [id number] Nd sebasyousif COULTERBernadette 2 [facility] 2021-09-15 2021-09-15 Outpatient Hardik [facility] [id number] Univers 10:20:00 10:20:00 JYOTI lee [facility] 2021-09-15 2021-09-15 Outpatient Hardik FRAZIER [facility] [id number] Univers 10:20:00 10:20:00 JYOTI lee [facility] 2021-09-15 2021-09-15 [facility] 1.2.840.114 [id number] Univers 00:00:00 00:00:00 José Manuel SPECIALTY 350.1.13.10 ity of [facility] 4.2.7.2.686 Maxim as CENTER AT [phone] [address] 2021-09-15 2021-09-15 [facility] 1.2.840.114 [id number] Univers 00:00:00 00:00:00 José Manuel SPECIALTY 350.1.13.10 ity of [facility] 4.2.7.2.686 Maxim as CENTER AT [phone] [address] 2021-09-12 2021-09-12 [facility] 1.2.840.114 [id number] Univers 00:00:00 00:00:00 [facility] 350.1.13.10 it y of [place] 4.2.7.2.686 Maxim as JORGE?BLEA [id number] [address] MEDICAL OFFICE BUILDING 2021-09-11 2021-09-11 Outpatient Hardik [facility] [id number] Univers 14:00:00 14:00:00 KIEL itbernadette [facility] 2021-09-04 2021-09-04 Outpatient Hardik [facility] [id number] Univers 07:50:55 23:59:00 KIEL brionesbernadette [facility] 2021-09-04 2021-09-04 [facility] 1.2.840.114 [id number] Univers 07:50:55 23:59:00 Encounter Kiel TOBIN 350.1.13.10 ity of [place] 4.2.7.2.686 [place] [facility] [id number] [facility] [address] 2021-08-28 2021-08-28 Office Yohan [facility] 1.2.241.328 [id number] Univers 13:34:20 14:14:59 Visit Kiel WOOD 350.1.13.10 ity of [facility] 4.2.7.2.686 Lorrie henry CENTER AT [id number] Nd amor COULTERBernadette 198 [facility] 2021-08-28 2021-08-28 Outpatient [facility] [id number] Univers 13:30:00 14:14:59 KIEL analibernadette [facility] 2021-08-28 2021-08-28 Outpatient [facility] [id number] Univers 13:30:00 14:14:59 KIEL analibernadette [facility] 2021-08-28 2021-08-28 Orders Doctor HENDRICKSON 1.2.840.114 [id number] Univers 00:00:00 00:00:00 Only Unassigned, MARIMAR 350.1.13.10 ity of [facility] 4.2.7.2.686 Maxim as [phone] [facility] [address] 2021-08-22 2021-08-22 Outpatient R YOHAN [facility] [id number] Univers 10:15:00 10:15:00 KIEL lee [facility] 2021-08-22 2021-08-22 Outpatient [facility] [id number] Univers 10:15:00 10:15:00 KIEL analibernadette [facility] 2021-08-15 2021-08-15 Outpatient Hardik ARAMBULA [facility] [id number] Univers 14:30:00 15:47:32 TUCKER analibernadette [facility] 2021-08-15 2021-08-15 Office [facility] 1.2.840.114 [id number] Univers 14:26:25 15:47:32 Visit Tucker W[facility]SON [facility] 350.1.13.10 it y of [place] 4.2.7.2.686 Maxim as JORGE?BLEA [phone] Nd amor AVERY [address] [place] [address] MEDICAL OFFICE BUILDING 2021-07-27 2021-07-27 Telephone [facility] 1.2.165.235 [id number] Univers 00:00:00 00:00:00 [facility] 350.1.13.10 it y of [place] 4.2.7.2.686 Maxim as Jorge?Blea [phone] [address] Office [facility] 2021-07-19 2021-07-19 Outpatient R [facility] [id number] Univers 13:45:00 13:45:[address] [facility] 2021-07-18 2021-07-18 [facility] 1.2.840.114 [id number] Univers 14:00:00 23:59:00 Encounter Andrew Tobin 350.1.13.10 ity of [place] 4.2.7.2.686 [place] [facility] [id number] [address] 2021-07-18 2021-07-18 Outpatient [facility] [id number] Univers 00:00:00 00:00:00 ANDREW lee o f [facility] 2021-07-17 2021-07-17 Outpatient R [facility] [id number] Univers 14:00:00 14:00:[address] [facility] 2021-07-11 2021-07-11 Outpatient Hardik [facility] [id number] Univers 11:00:00 11:00:00 JOSÉ MANUEL [facility] 2021-07-10 2021-07-10 Patient [facility] 1.2.840.114 [id number] Univers 00:00:00 00:00:00 Secure Msg [facility] 350.1.13.10 ity of [place] 4.2.7.2.686 Maxim as Jorge?Blea [id number] [address] 2021-07-10 2021-07-10 Letter [facility] 1.2.840.114 [id number] Univers 00:00:00 00:00:00 (Out) [facility] 350.1.13.10 it y of [place] 4.2.7.2.686 Maxim as Jorge?Blea [phone] Nd dictn anne [address] Medical Office [facility] 2021-07-07 2021-07-07 [facility] 1.2.840.114 [id number] Univers 16:00:00 23:59:00 Encounter [facility] 350.1.13.10 ity of [place] 4.2.7.2.686 Maxim as Jorge?Blea [phone] Nd dictn tyra [address] Medical Office [facility] 2021-07-07 2021-07-07 [facility] 1.2.840.114 [id number] Univers 15:43:59 15:59:00 Encounter [facility] 350.1.13.10 ity of [place] 4.2.7.2.686 Maxim as Jorge?Blea [phone] [facility] 808 [facility] Office [facility] 2021-07-07 2021-07-07 Outpatient [facility] [id number] Univers 14:20:00 14:20:00 TUCKER ity of [facility] 2021-07-07 2021-07-07 Outpatient R [facility] [id number] Univers 00:00:00 00:00:00 TUCKER ity of [facility] 2021-07-07 2021-07-07 Refill [facility] 1.2.840.114 [id number] Univers 00:00:00 00:00:00 [facility] 350.1.13.10 it y of [place] 4.2.7.2.686 Maxim as Jorge?Blea [phone] [facility] [address] Medical Office [facility] 2021-07-06 2021-07-06 Patient Doctor EMEKA 1.2.840.114 [id number] Univers 00:00:00 00:00:00 Secure Msg Unassigned, MARIMAR 350.1.13.10 ity of [place] [facility] 4.2.7.2.686 Maxim as [id number] [address] 2021-07-06 2021-07-06 Telephone [facility] 1.2.394.532 [id number] Univers 00:00:00 00:00:00 [facility] 350.1.13.10 it y of [place] 4.2.7.2.686 Maxim as Jorge?Blea [phone] Nd sebas[address] Medical Office Building 2021-07-04 2021-07-04 Office Ralf [facility] 1.2.840.114 [id number] Univers 13:09:58 13:59:18 Visit Tucker Floyd 350.1.13.10 it y of [place] 4.2.7.2.686 Maxim as Jorge?Blea [phone] [address] Medical Office Building 2021-07-04 2021-07-04 Outpatient R RALF [facility] [id number] Univers 13:00:00 13:00:00 TUCKER analibernadette [facility] 2021-06-13 2021-06-13 Outpatient R BERTA [facility] [id number] Univers 00:00:00 00:00:00 ANDREW lee o f [facility] 2021-06-12 2021-06-12 Patient [facility] 1.2.840.114 [id number] Univers 00:00:00 00:00:00 Secure Msg José Manuel SPECIALTY 350.1.13.10 ity of [place] CARE 4.2.7.2.686 Maxim as CENTER AT [phone] Nd amor LEWIS [address] [place] [address] 2021-06-12 2021-06-12 Patient Emeka [facility] 1.2.840.114 [id number] Univers 00:00:00 00:00:00 Secure Msg José Manuel SPECIALTY 350.1.13.10 ity of [place] CARE 4.2.7.2.686 Maxim as CENTER AT [phone] Nd amor LEWIS [address] [place] [address] 2021-06-07 2021-06-07 Patient Emeka [facility] 1.2.840.114 [id number] Univers 00:00:00 00:00:00 Secure Msg José Manuel SPECIALTY 350.1.13.10 ity of [place] CARE 4.2.7.2.686 Maxim as CENTER AT [id number] Nd amor LEWIS [address] [place] [address] 2021-06-07 2021-06-07 Patient Emeka [facility] 1.2.840.114 [id number] Univers 00:00:00 00:00:00 Secure Msg José Manuel SPECIALTY 350.1.13.10 ity of [place] CARE 4.2.7.2.686 Maxim as CENTER AT [id number] Nd amor LEWIS [address] [place] [address] 2021-06-02 2021-06-02 Patient [facility] 1.2.840.114 [id number] Univers 00:00:00 00:00:00 Secure Msg José Manuel SPECIALTY 350.1.13.10 ity of [place] CARE 4.2.7.2.686 Maxim as CENTER AT [id number] Nd amor DELAVANBernadette [address] [place] [address] 2021-06-02 2021-06-02 Patient [facility] 1.2.840.114 [id number] Univers 00:00:00 00:00:00 Secure Msg José Manuel SPECIALTY 350.1.13.10 ity of [place] CARE 4.2.7.2.686 Maxim as CENTER AT [id number] [address] 2021-05-30 2021-05-30 Outpatient Hardik GELLER [facility] [id number] Univers 00:00:00 00:00:00 ANDREW copeland [facility] 2021-05-29 2021-05-29 Telephone [facility] 1.2.376.002 [id number] Univers 00:00:00 00:00:00 José Manuel SPECIALTY 350.1.13.10 ity of [place] CARE 4.2.7.2.686 Maxim as CENTER AT 509.3849100 Nd sebas[address] 2021-05-19 2021-05-19 Patient Doctor [facility] 1.2.103.730 [id number] Univers 00:00:00 00:00:00 Secure Msg Unassigned, Y HEALTH 350.1.13.10 ity of [place] CLINICS 4.2.7.2.686 [place] [phone] [facility] [address] 2021-05-18 2021-05-18 Letter Cliff [facility] 1.2.840.114 [id number] Univers 00:00:00 00:00:00 (Out) Jemima HEALTH 350.1.13.10 i ty of [place] CLINICS 4.2.7.2.686 [place] [id number] [facility] [address] 2021-05-16 2021-05-16 Patient [facility] 1.2.840.114 [id number] Univers 00:00:00 00:00:00 Secure Msg Jemima SPECIALTY 350.1.13.10 ity of [place] CARE 4.2.7.2.686 [place] CENTER AT [id number] Nd amor LEWIS [address] [place] [address] 2021-05-15 2021-05-15 Hospital [facility] 1.2.840.114 [id number] Univers 11:44:00 14:20:00 Encounter Jemima ICAL 350.1.13.10 ity of [place] SCIENCES 4.2.7.2.686 Maxim as BLDG [id number] [facility] [address] 2021-05-15 2021-05-15 Surgery [facility] 1.2.840.114 [id number] Univers 12:13:00 12:44:00 Jemima ICAL 350.1.13.10 it y of [place] SCIENCES 4.2.7.2.686 Maxim as BLDG [id number] [facility] [address] 2021-05-15 2021-05-15 Orders Doctor EMEKA 1.2.840.114 [id number] Univers 00:00:00 00:00:00 Only Unassigned, MARIMAR 350.1.13.10 ity of [place] HOSPITAL 4.2.7.2.686 Maxim as [id number] [facility] [address] 2021-05-15 2021-05-15 Telephone Emeka [facility] 1.2.611.694 [id number] Univers 00:00:00 00:00:00 José Manuel SPECIALTY 350.1.13.10 ity of [place] CARE 4.2.7.2.686 Maxim as CENTER AT [id number] Nd amor LEWIS [address] [place] [address] 2021-05-11 2021-05-11 Outpatient R [facility] [id number] Univers 13:00:00 13:00:00 ity of [facility] 2021-05-11 2021-05-11 Orders Doctor EMEKA 1.2.840.114 [id number] Univers 00:00:00 00:00:00 Only Unassigned, MARIMAR 350.1.13.10 ity of [place] HOSPITAL 4.2.7.2.686 Maxim as [id number] [address] 2021-05-09 2021-05-09 Office Emeka [facility] 1.2.840.114 [id number] Univers 09:58:46 16:58:47 Visit José Manuel SPECIALTY 350.1.13.10 ity of [place] CARE 4.2.7.2.686 Maxim as CENTER AT [phone] Nd sebasyousif LEWIS [address] [place] [address] 2021-05-09 2021-05-09 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 13.10 ity of CARE 4.2.7.2.686 [place] CENTER AT [id number] Nd sebasyousif LEWIS 353 [facility] 2021-05-09 2021-05-09 Outpatient R EMEKA [facility] [id number] Univers 10:00:00 10:00:00 JOSÉ MANUEL itbernadette of [facility] 2021-05-09 2021-05-09 Orders Doctor HENDRICKSON 1.2.840.114 [id number] Univers 00:00:00 00:00:00 Only Unassigned, MARIMAR 350.1.13.10 ity of [place] HOSPITAL 4.2.7.2.686 Maxim as [id number] [address] 2021-04-05 2021-04-05 Refill Monserrat [facility] 1.2.840.114 [id number] Univers 00:00:00 00:00:00 Sarah vogt SPECIALTY 350.1.13.10 ity of CARE 4.2.7.2.686 [place] CENTER AT [id number] Nd dicyousif LEWIS [address] [place] [address] 2021-04-04 2021-04-04 Refheena German [facility] 1.2.840.114 [id number] Univers 00:00:00 00:00:00 Sarah vogt SPECIALTY 350.1.13.10 ity of C[place] 4.2.7.2.686 [place] CENTER AT [id number] Nd dicyousif LEWIS [address] [place] [address] 2020-09-29 2020-09-29 Outpatient R KEYLA [facility] [id number] Univers 14:30:00 14:30:00 CHYNA ity [facility] 2020-06-16 2020-06-16 Outpatient R [facility] [id number] Univers 15:00:00 15:00:00 ity [facility] 2020-06-16 2020-06-16 Telemedici Sarah Santacruz [facility] 1.2.840.114 [id number] Univers 06:40:26 07:10:26 ne Visit Chyna Ramires SPECIALTY 350.1.13.1 0 ity of C[place] 4.2.7.2.686 [place] CENTER AT [id number] Nd amor LEWIS [address] [place] [address] 2020-05-23 2020-05-23 Outpatient R YADIRA [facility] [id number] Univers 14:30:00 14:30:00 WONDIFUL ity o f [facility] 2020-05-05 2020-05-06 Office Sarah Santacruz [facility] 1.2 .840.114 [id number] Univers 15:04:28 11:41:53 Visit Rohit Pastor SPECIALTY 350.1.13.10 ity of CARE 4.2.7.2.686 [place] CENTER AT [id number] Nd dicyousif LEWIS [address] [place] [address] 2020-05-05 2020-05-05 Outpatient [facility] [id number] Univers 15:00:00 15:00:00 ROHIT ity [facility] 2020-05-05 2020-05-05 Orders Doctor HENDRICKSON 1.2.840.114 [id number] Univers 00:00:00 00:00:00 Only Unassigned, MARIMAR 350.1.13.10 ity of [place] HOSPITAL 4.2.7.2.686 Maxim as [phone] [facility] [address] 2020-03-24 2020-03-24 Transition [facility] 1.2.840.114 [id number] Univers 00:00:00 00:00:00 of Care Lovely Conroy 350.1.13.10 i ty of [place] 4.2.7.2.686 [place] [id number] [facility] [address] 2020-03-20 2020-03-23 Hospital Shital Mathur [facility] 1.2.840.11 [id number] Univers 15:21:32 17:48:00 Encounter Ashish Butts 350.1.13.10 ity of [place] 4.2.7.2.686 [place] [phone] [facility] [address] 2020-01-16 2020-01-16 Telephone EMEKA [place] 1.2.724.655 [id number] Univers 00:00:00 00:00:00 Shira MINAYA 350.1.13.10 it y of HOSPITAL 4.2.7.2.686 Maxim as [phone] [facility] [address] 2020-01-14 2020-01-14 Urgent Pob1, Acute Care Clinic [facility] 1. 2.840.114 [id number] Univers 14:15:31 14:35:31 Care Ramiro [facility] 350.1.13.10 ity of [place] 4.2.7.2.686 Maxim as Deweyio [phone] [place] [address] Branch Office Building One 2020-01-14 2020-01-14 Outpatient [facility] 1026 [id number] Univers 14:20:00 14:20:00 ESTELLE [facility] Results Test Description Test Time Test Comments Results Result Comments Source GASTRIN 2023-01-01 20:56:13 Test Item Value Reference Range Interpretation Comme nts GASTRIN (test code = 2333-3) 37 pg/mL 0-100 Performed By: [employer] [place] [id number] Director: Jimmie Carlson MD, PhD [facility]23-[facility]-21 20:56:13 Test Item Value Reference Range Interpretation Comments GASTRIN (test code = 37 pg/mL 0-100 Perform ed By: ARABELLA 2333-3) [address] [id number] Director: Gustavo Carlson MD, PhD [facility] WITH [id number] 16:48:38 Test Item Value Reference Range Interpretation [...] RDW-SD (test code = 45.8 fL 39.0-49.9 78124-2) RDW-CV (test code = 15.7 % 12.0-15.5 H 788-0) PLT (test code = 311 See_Comment [Automated 777-3) message] The sy stem which generated this result transmitted reference range : 166 - 358 10*3/ ?L. The reference r susana was not used to interpret this result as normal/abnormal . MPV (test code = 10.0 fL 9.5-12.9 64598-9) NRBC/100 WBC (test 0.0 See_Comment [Automat ed code = 3820983434) message] The system which generated this result transmitted reference range : 0.0 - 10.0 /100 WBCs. The refer ence range was not u sed to interpret th is result as normal/abnormal . NRBC x10^3 (test code See_Comment [Auto mated = 9508643992) message] The s ystem which generated this result transmitted reference range : 10*3/?L. The reference range was not used to interpret this result as normal/abnormal . GRAN MAT (NEUT) % 50.6 % (test code = 770-8) IMM GRAN % (test code 0.20 % = 4870464360) LYMPH % (test code = 35.1 % 736-9) MONO % (test code = 8.3 % 5905-5) EOS % (test code = 4.5 % 713-8) BASO % (test code = 1.3 % 706-2) GRAN MAT x10^3(ANC) 2.38 10*3/uL 1.88-7.09 (test code = 3995851321) IMM GRAN x10^3 (test 0.00-0.06 code = 8622744853) LYMPH x10^3 (test code 1.65 10*3/uL 1.32-3.29 = 731-0) MONO x10^3 (test code 0.39 10*3/uL 0.33-0.92 = 742-7) EOS x10^3 (test code = 0.21 10*3/uL 0.03-0.39 711-2) BASO x10^3 (test code 0.06 10*3/uL 0.01-0.07 = 704-7) Lab Interpretation Abnormal (test code = 91074-0) [facility] WITH [id number] 16:48:38 Test Item Value Reference Range Interpretation [...] RDW-SD (test code = 45.8 fL 39.0-49.9 67864-6) RDW-CV (test code = 15.7 % 12.0-15.5 H 788-0) PLT (test code = 311 See_Comment [Automated 777-3) message] The sy stem which generated this result transmitted reference range : 166 - 358 10*3/ ?L. The reference r susana was not used to interpret this result as normal/abnormal . MPV (test code = 10.0 fL 9.5-12.9 86929-9) NRBC/100 WBC (test 0.0 See_Comment [Automat ed code = [id number]) message] The system which generated this result transmitted reference range : 0.0 - 10.0 /100 WBCs. The refer ence range was not u sed to interpret th is result as normal/abnormal . NRBC x10^3 (test code See_Comment [Auto mated = [id number]) message] The s ystem which generated this result transmitted reference range : 10*3/?L. The reference range was not used to interpret this result as normal/abnormal . GRAN MAT (NEUT) % 50.6 % (test code = 770-8) IMM GRAN % (test code 0.20 % = [id number]) LYMPH % (test code = 35.1 % 736-9) MONO % (test code = 8.3 % 5905-5) EOS % (test code = 4.5 % 713-8) BASO % (test code = 1.3 % 706-2) GRAN MAT x10^3(ANC) 2.38 10*3/uL 1.88-7.09 (test code = [id number]) IMM GRAN x10^3 (test 0.00-0.06 code = [id number]) LYMPH x10^3 (test code 1.65 10*3/uL 1.32-3.29 = 731-0) MONO x10^3 (test code 0.39 10*3/uL 0.33-0.92 = 742-7) EOS x10^3 (test code = 0.21 10*3/uL 0.03-0.39 711-2) BASO x10^3 (test code 0.06 10*3/uL 0.01-0.07 = 704-7) Lab Interpretation Abnormal (test code = 78434-7) [facility] Packed RBC (in units), 2 Units 2023-01-01 12:28:32 Test Item Value Reference Range Interpretation Comments Cross Match Result Compatible (test code = 4409) ISBT Blood Type Code 9500 (test code = 611960) Unit Blood Type (test O Neg code = 4410) Unit Number (test [id number] code = 4411) Blood Expiration Date & Time (test code = 248114) Status Information Issued (test code = 4412) Product Red Blood Cells Identification (test code = 4413) Product Code (test [id number] Performed at [facility] code = 4414) Laboratory [facility] Blood [address] Free: [phone] A No. [id number] [facility] Packed RBC (in units), 2 Units 2023-01-01 12:28:32 Test Item Value Reference Range Interpretation Comments Cross Match Result Compatible (test code = 4409) ISBT Blood Type Code 9500 (test code = 890079) Unit Blood Type (test O Neg code = 4410) Unit Number (test [id number] code = 4411) Blood Expiration Date & Time (test code = 209170) Status Information Issued (test code = 4412) Product Red Blood Cells Identification (test code = 4413) Product Code (test [id number] Performed at [facility] code = 4414) Laboratory [facility] Blood [address] [place], [place] [address]Toll Free: [phone] A No. [id number] [facility] P[facility] RBC (in units), 1 Units 2023-01-01 11:08:21 Test Item Value Reference Range Interpretation Comments Cross Match Result Compatible (test code = 4409) ISBT Blood Type Code 9500 (test code = 626562) Unit Blood Type (test O Neg code = 4410) Unit Number (test [id number] code = 4411) Blood Expiration Date & Time (test code = 123671) Status Information Issued (test code = 4412) Product Red Blood Cells Identification (test code = 4413) Product Code (test A7991V33 Performed at [facility] code = 4414) Laboratory Services [facility] Blood [address] [place] [address]Kqwd Free: [phone] A No. [id number] [facility] Packed RBC (in units), 1 Units 2023-01-01 11:08:21 Test Item Value Reference Range Interpretation Comments Cross Match Result Compatible (test code = 4409) ISBT Blood Type Code 9500 (test code = 341178) Unit Blood Type (test O Neg code = 4410) Unit Number (test [id number] code = 4411) Blood Expiration Date & Time (test code = 800119) Status Information Issued (test code = 4412) Product Red Blood Cells Identification (test code = 4413) Product Code (test C0440W30 Performed at [facility] code = 4414) Laboratory Services [facility] Blood [address] [place] [address]Swtt Free: [phone] A No. [id number] [facility] [id number] 21:19:57 Test Item Value Reference Range Interpretation Comments FERRITIN (test code = 4.2 ng/mL 6.0-137.0 L 9338282807) CIERA (test code = CIERA) Biotin has been reported to cause a negative bias, interpret results relative to patient's use of biotin. Lab Interpretation (test Abnormal code = 70176-7) [facility] [id number] 21:19:57 Test Item Value Reference Range Interpretation Comments FERRITIN (test code = 4.2 ng/mL 6.0-137.0 L 1289317283) CIERA (test code = CIERA) Biotin has been reported to cause a negative bias, interpret results relative to patient's use of biotin. Lab Interpretation (test Abnormal code = 99109-7) [place] [id number] 20:30:30 Test Item Value Reference Range Interpretation Comments IRON (test code = 3026315536) 115 ug/dL 50-160 Lab Interpretation (test code = Normal 12816-3) [place] [id number] 20:30:30 Test Item Value Reference Range Interpretation Comments IRON (test code = 2306445761) 115 ug/dL 50-160 Lab Interpretation (test code = Normal 25277-1) [facility] METABOLIC PANEL (NA, K, CL, CO2, GLUCOSE, BUN, CREATININE, CA)2022-12-31 11:39:33 Test Item Value Reference Range Interpretation Comments NA (test code = 137 mmol/L 135-145 0155430803) K (test code = 3.7 mmol/L 3.5-5.0 2513055382) CL (test code = 110 mmol/L 98-108 H 4360092553) CO2 TOTAL (test code = 26 mmol/L 23-31 3854597959) AGAP (test code = 1 2-16 L 9368962030) BUN (test code = 7 mg/dL 7-23 6157372239) GLUCOSE (test code = 104 mg/dL 70-110 3217265539) CREATININE (test code = 0.44 mg/dL 0.50-1.04 L 1277052620) CALCIUM (test code = 7.0 mg/dL 8.6-10.6 L 3714829316) eGFR (test code = 156.1 mL/min/1.73m2 1023225918) CIERA (test code = CIERA) Association of [...] tests). Lab Interpretation Abnormal (test code = 40778-4) [facility] 11:39:33 Test Item Value Reference Range Interpretation Comments MAGNESIUM (test code = 2850245125) 2.2 mg/dL 1.7-2.4 Lab Interpretation (test code = Normal 24134-9) [facility]2023-03-20 11:39:33 Test Item Value Reference Range Interpretation Comments PHOSPHORUS (test code = 7934084532) 3.2 mg/dL 2.5-5.0 Lab Interpretation (test code = Normal 46398-7) [facility] MET[facility]OLIC PANEL (NA, K, CL, CO2, GLUCOSE, BUN, CREATININE, CA)2022-12-31 11:39:33 Test Item Value Reference Range Interpretation Comments NA (test code = 137 mmol/L 135-145 5763923837) K (test code = 3.7 mmol/L 3.5-5.0 0927269088) CL (test code = 110 mmol/L 98-108 H 0653396485) CO2 TOTAL (test code = 26 mmol/L 23-31 4281786969) AGAP (test code = 1 2-16 L 8264414673) BUN (test code = 7 mg/dL 7-23 3438670401) GLUCOSE (test code = 104 mg/dL 70-110 7228894722) CREATININE (test code = 0.44 mg/dL 0.50-1.04 L 1420787538) CALCIUM (test code = 7.0 mg/dL 8.6-10.6 L 3340827053) eGFR (test code = 156.1 mL/min/1.73m2 9069160479) CIERA (test code = CIERA) Association of [...] tests). Lab Interpretation Abnormal (test code = 36608-6) [facility]20[facility]-20 11:39:33 Test Item Value Reference Range Interpretation Comments MAGNESIUM (test code = 8895627262) 2.2 mg/dL 1.7-2.4 Lab Interpretation (test code = Normal 66416-9) [facility]2023-03-20 11:39:33 Test Item Value Reference Range Interpretation Comments PHOSPHORUS (test code = 5470398713) 3.2 mg/dL 2.5-5.0 Lab Interpretation (test code = Normal 64330-4) [facility] WITH [id number] 11:12:50 Test Item Value Reference Range Interpretation [...] RDW-SD (test code = 44.3 fL 39.0-49.9 91749-8) RDW-CV (test code = 15.4 % 12.0-15.5 788-0) PLT (test code = 321 See_Comment [Automated 777-3) message] The sy stem which generated this result transmitted reference range : 166 - 358 10*3/ ?L. The reference r susana was not used to interpret this result as normal/abnormal . MPV (test code = 10.1 fL 9.5-12.9 39197-9) NRBC/100 WBC (test 0.0 See_Comment [Automat ed code = 0802386840) message] The system which generated this result transmitted reference range : 0.0 - 10.0 /100 WBCs. The refer ence range was not u sed to interpret th is result as normal/abnormal . NRBC x10^3 (test code See_Comment [Auto mated = 7282086766) message] The s ystem which generated this result transmitted reference range : 10*3/?L. The reference range was not used to interpret this result as normal/abnormal . GRAN MAT (NEUT) % 62.8 % (test code = 770-8) IMM GRAN % (test code 0.30 % = 4914566403) LYMPH % (test code = 27.1 % 736-9) MONO % (test code = 7.8 % 5905-5) EOS % (test code = 1.3 % 713-8) BASO % (test code = 0.7 % 706-2) GRAN MAT x10^3(ANC) 4.53 10*3/uL 1.88-7.09 (test code = 7751024841) IMM GRAN x10^3 (test 0.00-0.06 code = 4433447974) LYMPH x10^3 (test code 1.95 10*3/uL 1.32-3.29 = 731-0) MONO x10^3 (test code 0.56 10*3/uL 0.33-0.92 = 742-7) EOS x10^3 (test code = 0.09 10*3/uL 0.03-0.39 711-2) BASO x10^3 (test code 0.05 10*3/uL 0.01-0.07 = 704-7) Lab Interpretation Abnormal (test code = 67439-9) [facility] WITH [id number] 11:12:50 Test Item Value Reference Range Interpretation Comments WBC (test code = 7.20 See_Comment [Automated 4290-2) message] The sy stem which generated this result transmitted reference range : 4.30 - 11.10 10*3/?L. The reference range was not used to interpret this result as normal/abnormal . RBC (test code = 2.97 See_Comment L [Automated 782-8) message] The sy stem which generated this [...] RDW-SD (test code = 44.3 fL 39.0-49.9 04241-6) RDW-CV (test code = 15.4 % 12.0-15.5 788-0) PLT (test code = 321 See_Comment [Automated 777-3) message] The sy stem which generated this result transmitted reference range : 166 - 358 10*3/ ?L. The reference r susana was not used to interpret this result as normal/abnormal . MPV (test code = 10.1 fL 9.5-12.9 25111-7) NRBC/100 WBC (test 0.0 See_Comment [Automat ed code = 4843436482) message] The system which generated this result transmitted reference range : 0.0 - 10.0 /100 WBCs. The refer ence range was not u sed to interpret th is result as normal/abnormal . NRBC x10^3 (test code See_Comment [Auto mated = 0372336242) message] The s ystem which generated this result transmitted reference range : 10*3/?L. The reference range was not used to interpret this result as normal/abnormal . GRAN MAT (NEUT) % 62.8 % (test code = 770-8) IMM GRAN % (test code 0.30 % = 0994577805) LYMPH % (test code = 27.1 % 736-9) MONO % (test code = 7.8 % 5905-5) EOS % (test code = 1.3 % 713-8) BASO % (test code = 0.7 % 706-2) GRAN MAT x10^3(ANC) 4.53 10*3/uL 1.88-7.09 (test code = 9155999531) IMM GRAN x10^3 (test 0.00-0.06 code = 4561422232) LYMPH x10^3 (test code 1.95 10*3/uL 1.32-3.29 = 731-0) MONO x10^3 (test code 0.56 10*3/uL 0.33-0.92 = 742-7) EOS x10^3 (test code = 0.09 10*3/uL 0.03-0.39 711-2) BASO x10^3 (test code 0.05 10*3/uL 0.01-0.07 = 704-7) Lab Interpretation Abnormal (test code = 38114-5) [facility] Packed RBC (in units), 1 Units 2022-12-31 05:50:01 Test Item Value Reference Range Interpretation Comments Cross Match Result Compatible (test code = 4409) ISBT Blood Type Code 9500 (test code = 130554) Unit Blood Type (test O Neg code = 4410) Unit Number (test [id number] code = 4411) Blood Expiration Date & Time (test code = 487452) Status Information Issued (test code = 4412) Product Red Blood Cells Identification (test code = 4413) Product Code (test [id number] Performed at [facility] code = 4414) Laboratory Services - [facility] Blood [address] [address]Nqxl Free: [phone] A No. [id number] [facility] Packed RBC (in units), 1 Units 2022-12-31 05:50:01 Test Item Value Reference Range Interpretation Comments Cross Match Result Compatible (test code = 4409) ISBT Blood Type Code 9500 (test code = 962833) Unit Blood Type (test O Neg code = 4410) Unit Number (test [id number] code = 4411) Blood Expiration Date & Time (test code = 221302) Status Information Issued (test code = 4412) Product Red Blood Cells Identification (test code = 4413) Product Code (test T2969M32 Performed at [facility] code = 4414) Laboratory Services - [facility] Blood [address] [address]Qhcs Free: [phone] A No. [id number] [facility] (NA, K, CL, CO2, Glucose, BUN, Creatinine, CA)2022-12-31 05:05:10 Test Item Value Reference Range Interpretation Comments NA (test code = 136 mmol/L 135-145 6790860438) K (test code = 3.4 mmol/L 3.5-5.0 L 8308056630) CL (test code = 109 mmol/L 98-108 H 1400612352) CO2 TOTAL (test code = 26 mmol/L 23-31 9947986239) AGAP (test code = 1 2-16 L 7082876137) BUN (test code = 9 mg/dL 7-23 9484537696) GLUCOSE (test code = 98 mg/dL 70-110 4674759773) CREATININE (test code = 0.46 mg/dL 0.50-1.04 L 2382138890) CALCIUM (test code = 7.3 mg/dL 8.6-10.6 L 4987622083) eGFR (test code = 148.3 mL/min/1.73m2 4495988113) CIERA (test code = CIERA) Association of [...] tests). Lab Interpretation Abnormal (test code = 39211-0) [facility]ne[facility] [id number] 05:05:10 Test Item Value Reference Range Interpretation Comments MAGNESIUM (test code = 2204861384) 1.5 mg/dL 1.7-2.4 L Lab Interpretation (test code = Abnormal 12776-9) [facility] [id number] 05:05:10 Test Item Value Reference Range Interpretation Comments PHOSPHORUS (test code = 3294958864) 2.2 mg/dL 2.5-5.0 L Lab Interpretation (test code = Abnormal 41811-1) [facility] Met[facility] (NA, K, CL, CO2, Glucose, BUN, Creatinine, CA)2022-12-31 05:05:10 Test Item Value Reference Range Interpretation Comments NA (test code = 136 mmol/L 135-145 5098631064) K (test code = 3.4 mmol/L 3.5-5.0 L 1982553324) CL (test code = 109 mmol/L 98-108 H 9161619418) CO2 TOTAL (test code = 26 mmol/L 23-31 0168382425) AGAP (test code = 1 2-16 L 0370967883) BUN (test code = 9 mg/dL 7-23 5680579100) GLUCOSE (test code = 98 mg/dL 70-110 0211161450) CREATININE (test code = 0.46 mg/dL 0.50-1.04 L 8482401639) CALCIUM (test code = 7.3 mg/dL 8.6-10.6 L 7744135492) eGFR (test code = 148.3 mL/min/1.73m2 0763261341) CIERA (test code = CIERA) Association of [...] tests). Lab Interpretation Abnormal (test code = 55747-5) [facility]ne[facility] [id number] 05:05:10 Test Item Value Reference Range Interpretation Comments MAGNESIUM (test code = 1356325477) 1.5 mg/dL 1.7-2.4 L Lab Interpretation (test code = Abnormal 31854-6) [facility] [id number] 05:05:10 Test Item Value Reference Range Interpretation Comments PHOSPHORUS (test code = 0454176147) 2.2 mg/dL 2.5-5.0 L Lab Interpretation (test code = Abnormal 43682-2) [facility]neProthrombin Time (PT) / [id number] 04:52:12 Test Item Value Reference Range Interpretation Comments PROTIME PATIENT (test 14.6 See_Comment H [Auto mated message] code = 5964-2) The system [employer] generated this result transmitted ref erence range: 10.1 - 1 2.6 Seconds. The reference range was not used to int erpret this result as normal/abnormal . INR (test code = 6301-6) 1.3 Nor mal INR <1.1; Warfarin Therap eutic range 2.0 to 3. 0 or 2.5 to 3.5, dep ending upon the indica tions. Lab Interpretation (test Abnormal code = 20999-7) [facility]neaPTT2023-03-20 04:52:12 Test Item Value Reference Range Interpretation Comments APTT Patient (test code = 27 See_Comment [ Automated message] 3173-2) The system [employer] generated this result transmitted ref erence range: 26 - 36 Seconds. The re ference range was not u sed to interpret this result as normal/abnor mal. Lab Interpretation (test Normal code = 30179-8) [facility]neProthrombin Time (PT) / [id number] 04:52:12 Test Item Value Reference Range Interpretation Comments PROTIME PATIENT (test 14.6 See_Comment H [Auto mated message] code = 5964-2) The system [employer] generated this result transmitted ref erence range: 10.1 - 1 2.6 Seconds. The reference range was not used to int erpret this result as normal/abnormal . INR (test code = 6301-6) 1.3 Nor mal INR <1.1; Warfarin Therap eutic range 2.0 to 3. 0 or 2.5 to 3.5, dep ending upon the indica tions. Lab Interpretation (test Abnormal code = 23352-4) [facility]neaPTT2023-03-20 04:52:12 Test Item Value Reference Range Interpretation Comments APTT Patient (test code = 27 See_Comment [ Automated message] 3173-2) The system [employer] generated this result transmitted ref erence range: 26 - 36 Seconds. The re ference range was not u sed to interpret this result as normal/abnor mal. Lab Interpretation (test Normal code = 49260-8) [facility]ne[facility] with [id number] 04:43:10 Test Item Value Reference Range Interpretation Comments WBC (test code = 7.56 See_Comment [Automated 90-2) message] The sy stem which generated this [...] RDW-SD (test code = 45.2 fL 39.0-49.9 63910-2) RDW-CV (test code = 15.6 % 12.0-15.5 H 788-0) PLT (test code = 389 See_Comment H [Automated 777-3) message] The sy stem which generated this result transmitted reference range : 166 - 358 10*3/ ?L. The reference r susana was not used to interpret this result as normal/abnormal . MPV (test code = 10.4 fL 9.5-12.9 75471-5) NRBC/100 WBC (test 0.0 See_Comment [Automat ed code = 9911426741) message] The system which generated this result transmitted reference range : 0.0 - 10.0 /100 WBCs. The refer ence range was not u sed to interpret th is result as normal/abnormal . NRBC x10^3 (test code See_Comment [Auto mated = 7464713848) message] The s ystem which generated this result transmitted reference range : 10*3/?L. The reference range was not used to interpret this result as normal/abnormal . GRAN MAT (NEUT) % 71.0 % (test code = 770-8) IMM GRAN % (test code 0.30 % = 3752022919) LYMPH % (test code = 23.3 % 736-9) MONO % (test code = 4.6 % 5905-5) EOS % (test code = 0.4 % 713-8) BASO % (test code = 0.4 % 706-2) GRAN MAT x10^3(ANC) 5.37 10*3/uL 1.88-7.09 (test code = 9475864864) IMM GRAN x10^3 (test 0.00-0.06 code = 3892241801) LYMPH x10^3 (test code 1.76 10*3/uL 1.32-3.29 = 731-0) MONO x10^3 (test code 0.35 10*3/uL 0.33-0.92 = 742-7) EOS x10^3 (test code = 0.03 10*3/uL 0.03-0.39 711-2) BASO x10^3 (test code 0.03 10*3/uL 0.01-0.07 = 704-7) Lab Interpretation Abnormal (test code = 11960-7) [facility] with [id number] 04:43:10 Test Item Value Reference Range Interpretation Comments WBC (test code = 7.56 See_Comment [Automated 6690-2) message] The sy stem which generated this result transmitted reference range : 4.30 - 11.10 10*3/?L. The reference range was not used to interpret this result as normal/abnormal . RBC (test code = 2.67 See_Comment L [Automated 179-8) message] The sy [...] RDW-SD (test code = 45.2 fL 39.0-49.9 86693-8) RDW-CV (test code = 15.6 % 12.0-15.5 H 788-0) PLT (test code = 389 See_Comment H [Automated 777-3) message] The sy stem which generated this result transmitted reference range : 166 - 358 10*3/ ?L. The reference r susana was not used to interpret this result as normal/abnormal . MPV (test code = 10.4 fL 9.5-12.9 55721-5) NRBC/100 WBC (test 0.0 See_Comment [Automat ed code = 1735818521) message] The system which generated this result transmitted reference range : 0.0 - 10.0 /100 WBCs. The refer ence range was not u sed to interpret th is result as normal/abnormal . NRBC x10^3 (test code See_Comment [Auto mated = 6235354366) message] The s ystem which generated this result transmitted reference range : 10*3/?L. The reference range was not used to interpret this result as normal/abnormal . GRAN MAT (NEUT) % 71.0 % (test code = 770-8) IMM GRAN % (test code 0.30 % = 8541374470) LYMPH % (test code = 23.3 % 736-9) MONO % (test code = 4.6 % 5905-5) EOS % (test code = 0.4 % 713-8) BASO % (test code = 0.4 % 706-2) GRAN MAT x10^3(ANC) 5.37 10*3/uL 1.88-7.09 (test code = 6958915399) IMM GRAN x10^3 (test 0.00-0.06 code = 8274660009) LYMPH x10^3 (test code 1.76 10*3/uL 1.32-3.29 = 731-0) MONO x10^3 (test code 0.35 10*3/uL 0.33-0.92 = 742-7) EOS x10^3 (test code = 0.03 10*3/uL 0.03-0.39 711-2) BASO x10^3 (test code 0.03 10*3/uL 0.01-0.07 = 704-7) Lab Interpretation Abnormal (test code = 46381-0) [facility] Screen - ONCE [id number] 01:02:00 Test Item Value Reference Range Interpretation Comments ABO & RH (test code = 20) O Negative IAT (test code = 1185) Negative [facility]ne[facility] Screen - ONCE [id number] 01:02:00 Test Item Value Reference Range Interpretation Comments ABO & RH (test code = 20) O Negative IAT (test code = 1185) Negative [facility]nePOCT [id number] 00:56:00 Test Item Value Reference Range Interpretation Comments POCT PREG (test code = 1605) Negative On board controls acceptable with Present C Line (test code = 3574) POCT PREG LOT # (test code = 3575) [id number] POCT PREG TEST DATE (test 03/13/24 code = 3576) Lab Interpretation (test code = Normal 35138-4) [facility]nePOCT [id number] 00:56:00 Test Item Value Reference Range Interpretation Comments POCT PREG (test code = 1605) Negative On board controls acceptable with Present C Line (test code = 3574) POCT PREG LOT # (test code = 3575) [id number] POCT PREG TEST DATE (test 03/13/24 code = 3576) Lab Interpretation (test code = Normal 32578-6) [facility]neLIPASE2023-03-20 00:31:59 Test Item Value Reference Range Interpretation Comments LIPASE (test code = 7713405883) 51 U/L 0-220 Lab Interpretation (test code = Normal 37435-8) [facility]2023-03-20 00:31:59 Test Item Value Reference Range Interpretation Comments LIPASE (test code = 5379289584) 51 U/L 0-220 Lab Interpretation (test code = Normal 95542-5) [facility]neCOMP. METABOLIC PANEL (38245)2022-12-31 00:10:38 Test Item Value Reference Range Interpretation Comments NA (test code = 136 mmol/L 135-145 5224237367) K (test code = 4.2 mmol/L 3.5-5.0 3252546183) CL (test code = 102 mmol/L 98-108 6347818591) CO2 TOTAL (test code = 23 mmol/L 23-31 6000568462) AGAP (test code = 11 2-16 6123354067) BUN (test code = 13 mg/dL 7-23 3851656154) GLUCOSE (test code = 111 mg/dL 70-110 H 2695703099) CREATININE (test code = 0.51 mg/dL 0.50-1.04 2328813937) TOTAL BILI (test code = 0.4 mg/dL 0.1-1.9 8140807533) CALCIUM (test code = 9.0 mg/dL 8.6-10.6 7473297779) T PROTEIN (test code = 6.8 g/dL 6.3-8.2 2551861471) ALBUMIN (test code = 3.8 g/dL 3.5-5.0 7667113439) ALK PHOS (test code = 100 U/L 34-122 9408105884) ALTv (test code = 12 U/L 5-35 1742-6) AST(SGOT) (test code = 17 U/L 13-40 8070359572) eGFR (test code = 131.6 mL/min/1.73m2 8994587883) CIERA (test code = CIERA) Association of [...] tests). Lab Interpretation Abnormal (test code = 32614-7) [facility]2023-03-20 00:10:38 Test Item Value Reference Range Interpretation Comments MAGNESIUM (test code = 4037663249) 1.5 mg/dL 1.7-2.4 L Lab Interpretation (test code = Abnormal 90421-3) [facility]neCOMP. METABOLIC PANEL (49258)2022-12-31 00:10:38 Test Item Value Reference Range Interpretation Comments NA (test code = 136 mmol/L 135-145 2341612213) K (test code = 4.2 mmol/L 3.5-5.0 5071654630) CL (test code = 102 mmol/L 98-108 4749530475) CO2 TOTAL (test code = 23 mmol/L 23-31 6271591838) AGAP (test code = 11 2-16 8487228770) BUN (test code = 13 mg/dL 7-23 1999246109) GLUCOSE (test code = 111 mg/dL 70-110 H 6197275393) CREATININE (test code = 0.51 mg/dL 0.50-1.04 7423878921) TOTAL BILI (test code = 0.4 mg/dL 0.1-1.9 2477365783) CALCIUM (test code = 9.0 mg/dL 8.6-10.6 0434991477) T PROTEIN (test code = 6.8 g/dL 6.3-8.2 0871685402) ALBUMIN (test code = 3.8 g/dL 3.5-5.0 1705764018) ALK PHOS (test code = 100 U/L 34-122 3698784559) ALTv (test code = 12 U/L 5-35 1742-6) AST(SGOT) (test code = 17 U/L 13-40 0330523940) eGFR (test code = 131.6 mL/min/1.73m2 6144776618) CIERA (test code = CIERA) Association of [...] tests). Lab Interpretation Abnormal (test code = 87481-9) [facility]20[facility]-20 00:10:38 Test Item Value Reference Range Interpretation Comments MAGNESIUM (test code = 4103397069) 1.5 mg/dL 1.7-2.4 L Lab Interpretation (test code = Abnormal 68421-1) [facility] WITH [id number] 23:56:38 Test Item Value Reference Range Interpretation Comments WBC (test code = 10.50 See_Comment [Automated 9682-2) message] The sy stem which generated this result transmitted reference range : 4.30 - 11.10 10*3/?L. The reference range was not used to interpret this result as normal/abnormal . RBC (test code = 2.62 See_Comment L [Automated 689-3) message] The sy stem which generated this [...] RDW-SD (test code = 46.9 fL 39.0-49.9 48027-7) RDW-CV (test code = 16.4 % 12.0-15.5 H 788-0) PLT (test code = 505 See_Comment H [Automated 777-3) message] The sy stem which generated this result transmitted reference range : 166 - 358 10*3/ ?L. The reference r susana was not used to interpret this result as normal/abnormal . MPV (test code = 10.7 fL 9.5-12.9 13792-4) NRBC/100 WBC (test 0.0 See_Comment [Automat ed code = 3291099841) message] The system which generated this result transmitted reference range : 0.0 - 10.0 /100 WBCs. The refer ence range was not u sed to interpret th is result as normal/abnormal . NRBC x10^3 (test code See_Comment [Auto mated = 7317945191) message] The s ystem which generated this result transmitted reference range : 10*3/?L. The reference range was not used to interpret this result as normal/abnormal . GRAN MAT (NEUT) % 77.8 % (test code = 770-8) IMM GRAN % (test code 0.40 % = 9112128826) LYMPH % (test code = 16.8 % 736-9) MONO % (test code = 4.0 % 5905-5) EOS % (test code = 0.5 % 713-8) BASO % (test code = 0.5 % 706-2) GRAN MAT x10^3(ANC) 8.18 10*3/uL 1.88-7.09 H (test code = 3234716160) IMM GRAN x10^3 (test 0.04 10*3/uL 0.00-0.06 code = 7170531905) LYMPH x10^3 (test code 1.76 10*3/uL 1.32-3.29 = 731-0) MONO x10^3 (test code 0.42 10*3/uL 0.33-0.92 = 742-7) EOS x10^3 (test code = 0.05 10*3/uL 0.03-0.39 711-2) BASO x10^3 (test code 0.05 10*3/uL 0.01-0.07 = 704-7) Lab Interpretation Abnormal (test code = 36130-4) [facility] WITH [id number] 23:56:38 Test Item Value Reference Range Interpretation [...] RDW-SD (test code = 46.9 fL 39.0-49.9 16161-1) RDW-CV (test code = 16.4 % 12.0-15.5 H 788-0) PLT (test code = 505 See_Comment H [Automated 777-3) message] The sy stem which generated this result transmitted reference range : 166 - 358 10*3/ ?L. The reference r susana was not used to interpret this result as normal/abnormal . MPV (test code = 10.7 fL 9.5-12.9 82696-8) NRBC/100 WBC (test 0.0 See_Comment [Automat ed code = 3586954703) message] The system which generated this result transmitted reference range : 0.0 - 10.0 /100 WBCs. The refer ence range was not u sed to interpret th is result as normal/abnormal . NRBC x10^3 (test code See_Comment [Auto mated = 7133726466) message] The s ystem which generated this result transmitted reference range : 10*3/?L. The reference range was not used to interpret this result as normal/abnormal . GRAN MAT (NEUT) % 77.8 % (test code = 770-8) IMM GRAN % (test code 0.40 % = 5927270690) LYMPH % (test code = 16.8 % 736-9) MONO % (test code = 4.0 % 5905-5) EOS % (test code = 0.5 % 713-8) BASO % (test code = 0.5 % 706-2) GRAN MAT x10^3(ANC) 8.18 10*3/uL 1.88-7.09 H (test code = 8299960262) IMM GRAN x10^3 (test 0.04 10*3/uL 0.00-0.06 code = 1123361098) LYMPH x10^3 (test code 1.76 10*3/uL 1.32-3.29 = 731-0) MONO x10^3 (test code 0.42 10*3/uL 0.33-0.92 = 742-7) EOS x10^3 (test code = 0.05 10*3/uL 0.03-0.39 711-2) BASO x10^3 (test code 0.05 10*3/uL 0.01-0.07 = 704-7) Lab Interpretation Abnormal (test code = 35342-9) [facility] WITH [id number] 21:11:40 Test Item Value Reference Range Interpretation Comments WBC (test code = See_Comment [Automated 6690-2) message] The sy stem which generated this result transmitted reference range : 4.30 - 11.10 10*3/?L. The reference range was not used to interpret this result as normal/abnormal . RBC (test code = See_Comment L [Automated 789-8) message] The sy [...] (test code = 77.1 fL 39-49.9 H 35203-3) RDW-CV (test code = 24.8 % 12-15.5 H 788-0) PLT (test code = See_Comment [Automated 777-3) message] The sy stem which generated this result transmitted reference range : 166 - 358 10*3/ ?L. The reference r susana was not used to interpret this result as normal/abnormal . MPV (test code = 10.0 fL 9.5-12.9 12061-5) NRBC/100 WBC (test See_Comment [Automat ed code = 8497911919) message] The system which generated this result transmitted reference range : 0.0 - 10.0 /100 WBCs. The refer ence range was not u sed to interpret th is result as normal/abnormal . NRBC x10^3 (test code See_Comment [Auto mated = 2643054297) message] The s ystem which generated this result transmitted reference range : 10*3/?L. The reference range was not used to interpret this result as normal/abnormal . GRAN MAT (NEUT) % 68.5 % (test code = 770-8) IMM GRAN % (test code 0.40 % = 0240529402) LYMPH % (test code = 21.3 % 736-9) MONO % (test code = 6.0 % 5905-5) EOS % (test code = 2.9 % 713-8) BASO % (test code = 0.9 % 706-2) GRAN MAT x10^3(ANC) 4.67 10*3/uL 1.88-7.09 (test code = 6403850068) IMM GRAN x10^3 (test 0.03 10*3/uL 0-0.06 code = 0258450402) LYMPH x10^3 (test code 1.45 10*3/uL 1.32-3.29 = 731-0) MONO x10^3 (test code 0.41 10*3/uL 0.33-0.92 = 742-7) EOS x10^3 (test code = 0.20 10*3/uL 0.03-0.39 711-2) BASO x10^3 (test code 0.06 10*3/uL 0.01-0.07 = 704-7) Lab Interpretation Abnormal (test code = 50432-5) [facility]"
[2023-08-04] MEDS ORDERED: ALBUTEROL 2.5 MG/3 ML NEB SOL ONE (21:06)
--- NOTE | 2023-08-04 21:21 | RAD REPORT ---
EXAM DESCRIPTION: RAD - Chest Single View - 08/04/2023 8:57 pm CLINICAL HISTORY: DYSPNEA COMPARISON: Chest Single View dated 06/19/2023; Chest Single View dated 06/09/2023; Chest Single View d ated 06/05/2023; Chest Single View dated 03/11/2023; Thorax Wo Con dated 06/05/2023 FINDINGS: Lines: None. Lungs: Patchy airspace disease present within the lower lungs bilaterally. Pleural: No significant pleural effusions or pneumothorax. Cardiac: The heart size is within normal limits. Mediastinum: Within normal limits. Bones: No acute fractures. Other: None IMPRESSION: Patchy bilateral airspace disease concerning for pneumonia or pneumonitis.
[2023-08-04 21:24] LABS: Protime INR 2.05
--- NOTE | 2023-08-04 21:27 | ER ---
Nurse's Notes [facility] Name: Ceci Ward Age: 42 yrs Sex: Female : 1980 Arrival Date: 08/04/2023 Time: 20:15 Bed 19 Private MD: Diagnosis: Severe sepsis without septic shock;Pneumonia, unspecified organism;Acute respiratory failure Presentation: 08/04 20:38 Chief complaint: Patient states: she started feeling short of breath with low back pain ap3 today. patient denies nausea and vomiting. patient was 74% on room air during triage, and placed on 4 liters nasal canula. patient recovered to 94% with the oxygen. Coronavirus screen: Client presents with at least one sign or symptom that may indicate coronavirus-19. Ebola Screen: No symptoms or risks identified at this time. Initial Sepsis Screen: Does the patient meet any 2 criteria? RR > 20 per min. HR > 90 bpm. Risk Assessment: Do you want to hurt yourself or someone else? Patient reports no desire to harm self or others. Onset of symptoms was August 04, 2023. 20:38 Method Of Arrival: Ambulatory ap3 20:38 Acuity: JES 2 ap3 Triage Assessment: 20:44 General: Appears distressed, Behavior is cooperative. Pain: Complains of pain in low ap3 back area and mid back area Pain currently is 9 out of 10 on a pain scale. Neuro: Level of Consciousness is awake, alert, obeys commands, Oriented to person, place, time, situation. Respiratory: Reports shortness of breath cough that is Respiratory effort is labored, Onset: The symptoms/episode began/occurred today. Derm: Skin is diaphoretic. Historical: - Allergies: 20:41 Tylenol-Codeine; ap3 20:41 Propoxyphene; ap3 - PMHx: 20:41 gastric ulcers; ap3 - Immunization history:: Client reports having NOT received the Covid vaccine. - Social history:: Smoking status: Patient reports the use of cigarette tobacco products, smokes one pack cigarettes per day. Screenin:45 [facility] ED Fall Risk Assessment (Adult) History of falling in the last 3 months, jb4 including since admission No falls in past 3 months (0 pts) Confusion or Disorientation No (0 pts). Abuse screen: Denies threats or abuse. Nutritional screening: No deficits noted. Tuberculosis screening: No symptoms or risk factors identified. Assessment: 20:35 General: Appears distressed, uncomfortable, Behavior is cooperative, anxious. Pain: jb4 Denies pain. Neuro: Level of Consciousness is awake, alert, obeys commands, Oriented to person, place, time, situation. Cardiovascular: Skin is warm and diaphoretic . Respiratory: Airway is patent Respiratory effort is labored, with nasal flaring, using tripod position, Respiratory pattern is symmetrical, tachypnea. GI: No signs and/or symptoms were reported involving the gastrointestinal system. : No signs and/or symptoms were reported regarding the genitourinary system. EENT: No signs and/or symptoms were reported regarding the EENT system. Derm: Skin is intact, Skin is diaphoretic, Skin is dusky, Skin temperature is warm. Musculoskeletal: Circulation, motion, and sensation intact. Range of motion: intact in all extremities. 20:46 Respiratory: Airway is patent. ap3 20:50 Reassessment: Pt noted to be increasingly diaphoretic on 4L NC and now satting 80%, jb4 provider notified of Desat and increased diaphoresis. Bi-pap ordered. 21:10 Reassessment: RT at the bedside applying bi-pap. jb4 21:45 Reassessment: Pt dc'ed own IV attempting to dig through her purse for cigarettes. jb4 Cigarettes taken from pt, purse placed on bedside table. Bleeding controlled IV intact. Educated pt on the need to keep Bi-pap on and that smoking is not allowed insided the hospital or on hospital grounds, and that pt's initial sats were in the 70's on RA. Pt verbalized understanding of instructions. New IV established 18g to the left wrist. 22:21 Reassessment: Pt continues to have tachypnea. Respirations are more relaxed, no longer jb4 diaphoretic. IV remains in place with IV fluids infusing without issue. 08/05 00:04 Reassessment: Patient appears in no apparent distress at this time. Patient and/or jb4 family updated on plan of care and expected duration. Pain level reassessed. Patient is alert, oriented x 3, equal unlabored respirations, skin warm/dry/pink. Vital Signs: 08/04 20:38 BP 94 / 73; Pulse 135; Resp 24; Temp 98.7; Pulse Ox 74% on R/A; Weight 52.16 kg; Pain ap3 9/10; 20:46 Pulse Ox 94% on 4 lpm NC; ap3 22:15 BP 122 / 82; Pulse 124; Resp 26; Pulse Ox 100% on BiPAP; jb4 23:45 BP 108 / 74; Pulse 117; Resp 17; Pulse Ox 99% on BiPAP; FiO2 50 %; jb4 20:38 Pain Scale: Adult ap3 ED Course: 20:18 Patient arrived in ED. mr 20:19 Jeet Marina DO is Attending Physician. ms3 20:41 Triage completed. ap3 20:59 Chest Single View XRAY In Process Unspecified. EDMS 21:06 Shahriar Martin, RN is Primary Nurse. jb4 21:26 Benjamin Engle is Hospitalizing Provider. ms3 23:45 Patient has correct armband on for positive identification. Bed in low position. Call jb4 light in reach. Side rails up X 1. 23:45 No provider procedures requiring assistance completed. Patient admitted, IV remains in jb4 place. Administered Medications: 20:50 Drug: Albuterol Inhalation 2.5 mg Inhalation every 20 minutes x3 Route: Inhalation; jb4 21:10 Drug: Albuterol Inhalation 2.5 mg Inhalation every 20 minutes x3 Route: Inhalation; jb4 21:27 Drug: Rocephin IV 1 grams IV at calculated rate once; Given slow IV push per pharmacy jb4 instructions Route: IV; Rate: calculated rate; Site: right hand; 21:28 Drug: NS 0.9% IV (30 ml/kg) 30 ml/kg IV at bolus once; Sepsis Protocol Route: IV; Rate: jb4 bolus; Site: right hand; 21:49 Drug: Albuterol Inhalation 2.5 mg Inhalation every 20 minutes x3 Route: Inhalation; jb4 22:01 Drug: AZITHromycin IVPB 500 mg IVPB once over 1 hrs; (mix in 250 mL NS) Route: IVPB; jb4 Infused Over: 1 hrs; Site: left wrist; Outcome: 21:27 Decision to Hospitalize by Provider. ms3 23:45 Discharged to home ambulatory, jb4 23:45 Condition: stable 23:45 Discharge instructions given to patient, Instructed on the need for admit, Demonstrated understanding of instructions, 08/05 00:06 Patient left the ED. jb4 Signatures: Dispatcher [employer] EDDulce Mustafa, Reg Reg mr Shahriar Martin, RN RN jb4 Gloria Thao RN RN ap3 Jeet Marina DO DO ms3 Corrections: (The following items were deleted from the chart) 08/04 22:22 21:25 Reassessment: Pt dc'ed own IV attempting to dig through her purse for cigarettes. jb4 Cigarettes taken from pt, purse placed on bedside table. Bleeding controlled IV intact. Educated pt on the need to keep Bi-pap on and that smoking is not allowed insided the hospital or on hospital grounds, and that pt's initial sats were in the 70's on RA. Pt verbalized understanding of instructions. New IV established 18g to the left wrist. jb4
--- NOTE | 2023-08-04 21:27 | EDPHYS ---
Physician Documentation [facility] Name: Ceci Ward Age: 42 yrs Sex: Female : 1980 Arrival Date: 08/04/2023 Time: 20:15 Bed 19 Private MD: ED Physician Jeet Marina HPI: 08/04 20:33 This 42 yrs old Female presents to ER via Unassigned with complaints of Breathing ms3 Difficulty, Cough, Congestion. 20:33 42-year-old female with no past medical history presents for shortness of breath that ms3 began earlier today. Patient notes she is also having low back pain. Patient rates her discomfort a 9/10. Patient denies nausea, vomiting, fevers, chills. Patient denies any alleviating or inciting factors. Patient states the symptoms are similar to when she had pneumonia in the past. Historical: - Allergies: 20:41 Tylenol-Codeine; ap3 20:41 Propoxyphene; ap3 - PMHx: 20:41 gastric ulcers; ap3 - Immunization history:: Client reports having NOT received the Covid vaccine. - Social history:: Smoking status: Patient reports the use of cigarette tobacco products, smokes one pack cigarettes per day. ROS: 20:33 Constitutional: Negative for fever, and chills. Neck: Negative for injury, pain, and ms3 swelling, Cardiovascular: Negative for chest pain, and palpitations. 20:33 MS/Extremity: Negative for injury and deformity, Skin: Negative for injury, rash, and discoloration, 20:33 Respiratory: Positive for shortness of breath, 20:33 All other systems are negative, Exam: 20:33 Constitutional: This is a well developed, well nourished patient who is awake, alert, ms3 and in no acute distress. Head/Face: Normocephalic, atraumatic. Neck: Trachea midline, no cervical lymphadenopathy. Supple, full range of motion without nuchal rigidity, or vertebral point tenderness. No Meningismus. Chest/axilla: Normal chest wall appearance and motion. Nontender with no deformity. 20:33 Cardiovascular: Rate: tachycardic, Rhythm: regular, Pulses: no pulse deficits are appreciated, Heart sounds: normal, Edema: is not appreciated, 20:33 Respiratory: moderate respiratory distress is noted, Respirations: labored breathing, that is moderate, Breath sounds: decreased breath sounds, that are mild, are heard in the left posterior upper lobe, right posterior upper lobe, left posterior lower lobe, right posterior middle lobe and right posterior lower lobe, rhonchi, that are moderate, are heard diffusely, 21:21 ECG was reviewed by the Attending Physician. ms3 Vital Signs: 20:38 BP 94 / 73; Pulse 135; Resp 24; Temp 98.7; Pulse Ox 74% on R/A; Weight 52.16 kg; Pain ap3 9/10; 20:46 Pulse Ox 94% on 4 lpm NC; ap3 22:15 BP 122 / 82; Pulse 124; Resp 26; Pulse Ox 100% on BiPAP; jb4 23:45 BP 108 / 74; Pulse 117; Resp 17; Pulse Ox 99% on BiPAP; FiO2 50 %; jb4 20:38 Pain Scale: Adult ap3 MDM: 20:33 Differential diagnosis: CHF exacerbation, Myocardial Infarction pneumonia, pulmonary ms3 edema. 20:37 Patient medically screened. ms3 22:14 Antibiotic administration: Rocephin and Zithromax given. Data reviewed: vital signs, ms3 nurses notes, lab test result(s), EKG, radiologic studies, and as a result, I will admit patient. Consideration of Admission/Observation Patient was admitted/placed on observation. Management of patient was discussed with the following: Hospitalist: Ivan Roberts NP on behalf of Dr Engle. I considered the following discharge prescriptions or medication management in the emergency department Medications were administered in the Emergency Department. See MAR. Independent interpretation of the following test(s) in the Emergency Department X-Ray: My interpretation is CXR image reviewed by me shows bilateral infiltrates. Counseling: I had a detailed discussion with the patient and/or guardian regarding the historical points, exam findings, and any diagnostic results supporting the discharge/admit diagnosis, lab results, radiology results, the need for further work-up and treatment in the hospital. ED course: Discussed necessity for admission with patient. Patient understands agrees with plan. Patient's respiratory status improved while on BiPAP.. 08/04 20:32 Order name: Blood Culture Adult (2) ms3 08/04 20:32 Order name: CBC with Diff ms3 08/04 20:32 Order name: CMP ms3 08/04 20:32 Order name: Lactate w/ 2H reflex if indic.; Complete Time: 22:13 ms3 08/04 20:32 Order name: Protime (+inr); Complete Time: 21:27 ms3 08/04 20:32 Order name: Ptt, Activated; Complete Time: 21:27 ms3 08/04 20:32 Order name: Urinalysis w/ reflexes ms3 08/04 21:18 Order name: ABG: VBG ms3 08/04 21:23 Order name: Troponin High Sensitivity EDMS 08/04 21:23 Order name: NT PRO-BNP EDMS 08/04 23:13 Order name: ABG Arterial Blood Gas EDMS 08/04 20:32 Order name: Chest Single View XRAY; Complete Time: 21:24 ms3 08/04 20:32 Order name: EKG; Complete Time: 20:33 ms3 08/04 21:41 Order name: CONS Physician Consult EDMS 08/04 20:32 Order name: Accucheck; Complete Time: 21:49 ms3 08/04 20:32 Order name: Cardiac monitoring; Complete Time: 20:42 ms3 08/04 20:32 Order name: EKG - Nurse/Tech; Complete Time: 20:42 ms3 08/04 20:32 Order name: IV Saline Lock - Large Bore; Complete Time: 21:18 ms3 08/04 20:32 Order name: Labs collected and sent; Complete Time: 21:06 ms3 08/04 20:32 Order name: O2 Per Protocol; Complete Time: 20:42 ms3 08/04 20:32 Order name: O2 Sat Monitoring; Complete Time: 20:42 ms3 08/04 20:32 Order name: Vital Signs; Complete Time: 20:42 ms3 EC:21 Rate is 127 beats/min. Rhythm is regular. QRS [place] is Normal. NV interval is normal. ms3 QRS interval is normal. QT interval is normal. Clinical impression: Sinus tachycardia. Interpreted by me. Reviewed by me. Administered Medications: 20:50 Drug: Albuterol Inhalation 2.5 mg Inhalation every 20 minutes x3 Route: Inhalation; jb4 21:10 Drug: Albuterol Inhalation 2.5 mg Inhalation every 20 minutes x3 Route: Inhalation; jb4 21:27 Drug: Rocephin IV 1 grams IV at calculated rate once; Given slow IV push per pharmacy jb4 instructions Route: IV; Rate: calculated rate; Site: right hand; 21:28 Drug: NS 0.9% IV (30 ml/kg) 30 ml/kg IV at bolus once; Sepsis Protocol Route: IV; Rate: jb4 bolus; Site: right hand; 21:49 Drug: Albuterol Inhalation 2.5 mg Inhalation every 20 minutes x3 Route: Inhalation; jb4 22:01 Drug: AZITHromycin IVPB 500 mg IVPB once over 1 hrs; (mix in 250 mL NS) Route: IVPB; jb4 Infused Over: 1 hrs; Site: left wrist; Disposition: 22:15 Critical Care:. ms3 Disposition Summary: 08/04/23 21:27 Hospitalization Ordered Notes: Hospitalization Status: Inpatient Admission ms3 Provider: Benjamin Engle ms3 Location: Intensive Care Unit ms3 Condition: Stable ms3 Problem: new ms3 Symptoms: are unchanged ms3 Bed/Room Type: [place] ms3 Room Assignment: 7-(08/04/23 22:26) bp Diagnosis - Severe sepsis without septic shock ms3 - Pneumonia, unspecified organism ms3 - Acute respiratory failure ms3 Forms: - Medication Reconciliation Form ms3 - SBAR form ms3 - Leadership Thank You Letter ms3 Critical care time excluding procedures: 22:15 Critical care time: Bedside Care: 30 minutes, Consultation: 5 minutes. Total time: 35 ms3 minutes Signatures: Dispatcher [employer] EDShahriar Rao RN RN jb4 Jose Dos Santos RN RN Gloria Rodriguez RN RN ap3 Jeet Marina DO DO ms3 Corrections: (The following items were deleted from the chart) 21:23 20:38 Troponin High Sensitivity+C.LAB.BRZ ordered. EDMS EDMS 21:23 20:38 PROBNP+C.LAB.BRZ ordered. EDMS EDMS 22:26 21:27 ms3 bp
[2023-08-04] MEDS ORDERED: NA CHLORIDE 0.9% 250 ML ONE (21:34)
[2023-08-04] MEDS ORDERED: NA CHLORIDE 0.9% 500 ML ONE (21:34)
--- NOTE | 2023-08-04 21:34 | P.HP ---
Certification for Inpatient Patient admitted to: Inpatient With expected LOS: <2 Midnights Patient will require the following post-hospital care: None Practitioner: I am a practitioner with admitting privileges, knowledge of patient current condition, hospital course, and medical plan of care. Services: Services provided to patient in accordance with Admission requirements found in Title 42 Section 412.3 of the Code of Federal Regulations Patient History Date of Service: 08/04/23 Reason for admission: Shortness of breath History of Present Illness: 42-year-old female with a past history of hypertension, GERD, pneumonia, tobacco use presents to the emergency room with shortness of breath. She reports associated productive cough, congestion that was worse today. She reports pain with coughing, 9 out of 10. She has been admitted 3 times in the last year with pneumonia. She denies chest pain, nausea vomiting fever diarrhea chills. Plan to admit for sepsis secondary to pneumonia, acute hypoxic respiratory failure, tobacco use. 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 Allergies acetaminophen [From Darvocet-N 100] Allergy (Verified 03/15/13 14:12) Itching/Hives/Rash propoxyphene napsylate [From Darvocet-N 100] Allergy (Verified 03/15/13 14:12) Itching/Hives/Rash Home Medications: Pantoprazole [Protonix Tab*] 40 mg PO BID 03/03/23 ALPRAZolam [Xanax*] 0.5 mg PO TID PRN #30 tab 03/11/23 Albuterol Neb [Proventil 0.083% Neb Soln] 2.5 mg NEB [id number] PRN #60 amp 03/11/23 Hydrocodone 10/APAP 325 [[place] 10/325*] 1 tab PO Q6H PRN #30 tab 03/11/23 Ipratropium Neb [Atrovent*] 0.5 mg NEB [id number] #60 amp 03/11/23 Chlorhexidine 4% [Betasept*] 120 ml TP DAILY 5 Days #5 bottle 06/10/23 Doxycycline Hyclate 100 mg PO BID #14 cap 06/10/23 Iron Polysaccharide Complex [Polysaccharide Iron] 150 mg PO DAILY #30 cap 06/10/23 Mupirocin Calcium [Bactroban Nasal*] 1 appl MAIKEL BID 7 Days #1 tube 06/10/23 levoFLOXacin [Levaquin*] 750 mg PO DAILY #10 tab 06/10/23 predniSONE [Prednisone*] 20 mg PO BID #10 tab 06/10/23 - Past Medical/Surgical History Diabetic: No -: Anxiety disorder -: Nicotine dependence -: Hypertension -: GERD -: Chronic back pain -: BTL - Family History Father -: Cancer Notes: pelvic cancer Mother -: Cancer Notes: lung cnacer, brain cancer Brother Notes: SIDS - Social History Alcohol use: No CD- Drugs: No Caffeine use: No Place of Residence: Home Review of Systems 10-point ROS is otherwise unremarkable Physical Examination - Physical Exam General: Alert, Oriented x3, Acute distress, Other (unkept) HEENT: Atraumatic, Normocephalic Neck: Supple, 2+ carotid pulse no bruit, JVD not distended Respiratory: Expiratory wheezes, Inspiratory wheezes Cardiovascular: Other (Tachycardia) Capillary refill: <2 Seconds Gastrointestinal: Normal bowel sounds, Soft and benign Musculoskeletal: No clubbing, No swelling Integumentary: Other (sores on head, JILLIAN, head shaved, ) - Studies Laboratory Data (last 24 hrs) 08/04/23 20:50 PT 22.5 H INR 2.05 APTT 22.3 L Assessment and Plan - Plan Assessment and plan Acute hypoxic respiratory failure secondary to pneumonia Sepsis without shock secondary to pneumonia Pulmonary consult, ABG ordered Patient on BiPAP, nebs, ceftriaxone azithromycin, Solu-Medro, as needed analgesics, antiemetics Patient is on BiPAP, treated with Rocephin, azithromycin, albuterol chest x-ray patchy bilateral airspace disease concerning for pneumonia, pneumonitis laboratory evaluation, vital signs blood pressure 94/73 pulse 135 respirations 24 temperature 98.7, 94% On arrival to the ER blood pressure 94/73 pulse 135 respirations 24 temperature 98.7, 94% Laboratory evaluation WBCs 20.70, left shift 92.2, glucose 129 lactic normal at 2.0 UA pending 29.3,, troponin normal 6.3 BNP elevated at 985 Macrocytic anemia microcytic anemia 9.3, Transaminitis transaminitis AST 51 ALT normal at 11 Acute kidney injury acute kidney injury BUN 20 creatinine 0.80 Hypoalbuminemia hypoalbuminemia 2.6 Contact dermatitis on scalp Patient sees Derm outpatient GERD PPI Tobacco use Nicotine patch Educated on smoking cessation DVT prophylaxis Full code Clear liquid diet Discharge Plan: Home Plan to discharge in: 48 Hours - Advance Directives Does patient have a Living Will: No Does patient have a Durable POA for Healthcare: No - Code Status/Comfort Care Code Status: Full Code Physician Review: Patient Assessed, Agree with Above Assessment and Plan Critical Care: No Time Spent Managing Pts Care (In Minutes): 50
[2023-08-04] MEDS ORDERED: AZITHROMYCIN 500 MG INJ IVPB ONE (21:35)
[2023-08-04] MEDS ORDERED: NA CHLORIDE 0.9% 1,000 ML ONE (21:35)
[2023-08-04] MEDS ORDERED: NA CHLORIDE 0.9% 50 ML ONE (21:35)
[2023-08-04] MEDS ORDERED: CEFTRIAXONE 1000 MG/VIAL ONE (21:35)
[2023-08-04] MEDS ORDERED: METHYLPREDNISOLONE 125 MG INJ IV ONE ×2 (21:47→21:56)
[2023-08-04 22:00] LABS: Absolute Lymphocytes (CBC) 1.1 K/uL (0.7-4.9); Hematocrit 29.3 % (36.0-45.0); Lymphocytes % 5.1 % (15.3-44.8); MCV 79.7 fL (80-100); MPV 7.9 fL (7.6-11.3); Platelets 440 thou/uL (152-406); RBC Red Blood Cell Count 3.68 M/uL (3.86-4.86)
[2023-08-04 22:16] LABS: Albumin 2.6 g/dL (3.4-5.0); Bilirubin Total 0.5 mg/dL (0.2-1.0); Potassium 3.5 mEq/L (3.5-5.1); Protein, Total 6.9 g/dL (6.4-8.2); Troponin High Sensitivity 6.3 pg/mL (<58.9)
[2023-08-04] MEDS ORDERED: ALBUTEROL 2.5 MG/3 ML NEB SOL NEB PRN (22:52)
[2023-08-04] MEDS ORDERED: ONDANSETRON 4 MG/2 ML VIAL IV PRN (22:52)
[2023-08-04] MEDS ORDERED: SODIUM CHLORIDE 0.9% 10ML INJ IV PRN (22:52)
[2023-08-04 23:12] LABS: Arterial Blood Carboxyhemoglob 3.1 % (0-1.5); Blood Gas Oxyhemoglobin 58.9 % (94-97)
[2023-08-05] MEDS: NICOTINE 21 MG/PAT TD SCH ×2 (00:16→08:20)
[2023-08-05 00:21] LABS: Anisocytosis 1+; Blood Morphology Comment NOTED (NOT SEEN); Platelet Estimate ADEQ
[2023-08-05 01:30] LABS: Specific Gravity > 1.030 (1.005-1.030); Urine Bacteria <20 /HPF (<20); Urine Bilirubin NEGATIVE (Negative); Urine Blood Negative (Negative); Urine Clarity Extremely Turbid (Clear); Urine Color Yellow (Yellow); Urine Glucose NEGATIVE (Negative); Urine Mucus Slight /HPF (None Seen); Urine Protein 1+ (Negative); Urine RBC <5 /HPF (None Seen); Urine Urobilinogen Normal (Normal)
[2023-08-05] MEDS: IPRATROPIUM BROM 0.5MG/2.5ML NEB SCH ×4 (01:45→21:09)
[2023-08-05 04:35] LABS: Absolute Lymphocytes (CBC) 0.6 K/uL (0.7-4.9); Hematocrit 26.8 % (36.0-45.0); Lymphocytes % 3.6 % (15.3-44.8); MCV 79.9 fL (80-100); MPV 7.9 fL (7.6-11.3); Platelets 361 thou/uL (152-406); RBC Red Blood Cell Count 3.35 M/uL (3.86-4.86)
[2023-08-05 04:51] LABS: Magnesium 1.8 mg/dL (1.6-2.4); Potassium 3.5 mEq/L (3.5-5.1)
[2023-08-05] MEDS ORDERED: METHYLPREDNISOLONE 125 MG INJ IV SCH ×2 (05:00→06:00)
[2023-08-05] MEDS ORDERED: MAGNESIUM SULFATE 1 gm IVPB 1 GM/100 ML BAG IV ONE (07:30)
[2023-08-05] MEDS ORDERED: INFLUENZA VACCINE (for 6+ mo) 0.5 ML DOSE IMVAC ONE (08:00)
--- NOTE | 2023-08-05 08:02 | P.PN ---
Date of Service: 08/05/23 Subjective: * Patient is alert, answering questions appropriately on BIPAP Fio2 40%, 14/6 RR 16. * Patient is tolerating BIPAP good, No distress, Spo2 100% * Patient denies any new complaints * Denies pain or discomfort. Allergies acetaminophen [From Darvocet-N 100] Allergy (Verified 03/15/13 14:12) Itching/Hives/Rash propoxyphene napsylate [From Darvocet-N 100] Allergy (Verified 03/15/13 14:12) Itching/Hives/Rash Home Medications: Pantoprazole [Protonix Tab*] 40 mg PO BID 03/03/23 ALPRAZolam [Xanax*] 0.5 mg PO TID PRN #30 tab 03/11/23 Albuterol Neb [Proventil 0.083% Neb Soln] 2.5 mg NEB [id number] PRN #60 amp 03/11/23 Hydrocodone 10/APAP 325 [[place] 10/325*] 1 tab PO Q6H PRN #30 tab 03/11/23 Ipratropium Neb [Atrovent*] 0.5 mg NEB [id number] #60 amp 03/11/23 Chlorhexidine 4% [Betasept*] 120 ml TP DAILY 5 Days #5 bottle 06/10/23 Doxycycline Hyclate 100 mg PO BID #14 cap 06/10/23 Iron Polysaccharide Complex [Polysaccharide Iron] 150 mg PO DAILY #30 cap 06/10/23 Mupirocin Calcium [Bactroban Nasal*] 1 appl MAIKEL BID 7 Days #1 tube 06/10/23 levoFLOXacin [Levaquin*] 750 mg PO DAILY #10 tab 06/10/23 predniSONE [Prednisone*] 20 mg PO BID #10 tab 06/10/23 - Past Medical/Surgical History Diabetic: No -: Anxiety disorder -: Nicotine dependence -: Hypertension -: GERD -: Chronic back pain -: BTL - Family History Father -: Cancer Notes: pelvic cancer Mother -: Cancer Notes: lung cnacer, brain cancer Brother Notes: SIDS - Social History Alcohol use: No CD- Drugs: No Caffeine use: No Place of Residence: Home Review of Systems 10-point ROS is otherwise unremarkable Physical Examination - Physical Exam General: Alert, Oriented x3, Acute distress, Other (unkept) HEENT: Atraumatic, Normocephalic Neck: Supple, 2+ carotid pulse no bruit, JVD not distended Respiratory: Expiratory wheezes, Inspiratory wheezes Cardiovascular: Other (Tachycardia) Capillary refill: <2 Seconds Gastrointestinal: Normal bowel sounds, Soft and benign Musculoskeletal: No clubbing, No swelling Integumentary: Other (sores on head, JILLIAN, head shaved, ) Vitala Signs: Reviewed - Studies Laboratory Data (last 24 hrs) Reviewed 08/04/23 20:50 PT 22.5 H INR 2.05 APTT 22.3 L Assessment and Plan - Plan Assessment and plan Acute hypoxic respiratory failure secondary to pneumonia Sepsis without shock secondary to pneumonia Pulmonary consult, ABG pH 7.37, pco2 3.9, po2 42.2, Hco3 21, BE-2.8 Patient on BiPAP, nebs, ceftriaxone azithromycin, Solu-Medro, as needed analgesics, antiemetics Patient is on BiPAP, treated with Rocephin, azithromycin, albuterol chest x-ray patchy bilateral airspace disease concerning for pneumonia, pneumonitis laboratory evaluation, vital signs blood pressure 94/73 pulse 135 respirations 24 temperature 98.7, 94% pressure fluctuating on lower 90s pulse 105 respirations 24 temperature 98.7, 94% Laboratory evaluation WBCs 20.70, left shift 92.2, glucose 129 lactic normal at 2.0 UA pending 29.3,, troponin normal 6.3 BNP elevated at 985 Macrocytic anemia chronic, hgb 8.3/hct 26.8, we will continue monitor. Transaminitis transaminitis AST 51 ALT normal at 11 Acute kidney injury acute kidney injury BUN 21 creatinine 0.63 Hypoalbuminemia hypoalbuminemia 1.8, replace the mag as per electrolyte proctocol. Contact dermatitis on scalp Patient sees Derm outpatient GERD PPI Tobacco use Nicotine patch Educated on smoking cessation DVT prophylaxis Full code Clear liquid diet Discharge Plan: Home Plan to discharge in: 48 Hours - Advance Directives Does patient have a Living Will: No Does patient have a Durable POA for Healthcare: No - Code Status/Comfort Care Code Status: Full Code Physician Review: Patient Assessed, Agree with Above Assessment and Plan Critical Care: No Time Spent Managing Pts Care (In Minutes): 40
[2023-08-05] MEDS: MORPHINE 4 MG/ML SYR IV PRN (08:19)
[2023-08-05] MEDS: PANTOPRAZOLE 40 MG INJ IVP SCH ×2 (08:20→21:48)
--- NOTE | 2023-08-05 08:47 | P.PN ---
Subjective Date of Service: 08/05/23 Chief Complaint: Shortness of breath Subjective: No C/O voiced, Improving, Doing well History of Present Illness: 42-year-old female with a past history of hypertension, GERD, pneumonia, tobacco use presents to the emergency room with shortness of breath. She reports associated productive cough, congestion that was worse today. She reports pain with coughing, 9 out of 10. She has been admitted 3 times in the last year with pneumonia. She denies chest pain, nausea vomiting fever diarrhea chills. Plan to admit for sepsis secondary to pneumonia, acute hypoxic respiratory failure, tobacco use. 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 08/05/2023 Subjective Patient is alert and oriented, on BiPAP FiO2 40%, 14/6, respiratory rate 16. Patient is tolerating BiPAP well Answering questions appropriately with the BiPAP mask No acute distress noticed Review of Systems 10-point ROS is otherwise unremarkable General: Weakness Respiratory: SOB with Excertion Physical Examination - Vital Signs Temperature: 98.7 F Blood Pressure: 94/56 Pulse: 104 Respirations: 27 Pulse Ox (%): 99 - Studies Laboratory Data (last 24 hrs) 08/04/23 20:50 PT 22.5 H INR 2.05 APTT 22.3 L Microbiology Data (last 24 hrs): 08/04/23 20:50 Blood - Blood Anaerobic Blood Culture - Final 08/04/23 21:05 Blood - Blood Anaerobic Blood Culture - Final Assessment And Plan - Plan Physical Examination - Physical Exam General: Alert, Oriented x3, Acute distress, Other (unkept) HEENT: Atraumatic, Normocephalic Neck: Supple, 2+ carotid pulse no bruit, JVD not distended Respiratory: Expiratory wheezes, Inspiratory wheezes, BL crackles on auscultTION Cardiovascular: Other (Tachycardia) Capillary refill: <2 Seconds Gastrointestinal: Normal bowel sounds, Soft and benign Musculoskeletal: No clubbing, No swelling Integumentary: Other (sores on head, JILLIAN, head shaved, ) Assessment and Plan Assessment and Plan - Plan Assessment and plan Acute hypoxic respiratory failure secondary to pneumonia Sepsis without shock secondary to pneumonia Acute, improving patient on BiPAP 14/6 FiO2 40% tolerating well, no distress at this time Pulmonary consult Patient on BiPAP, nebs, ceftriaxone azithromycin, Solu-Medro, as needed analgesics, antiemetics evaluation, vital signs blood pressure 94/73 pulse 105 respirations 22 temperature 98.7, 94% on BiPAP-normal saline 500 IV bolus ordered We will monitor the blood pressure closely Laboratory evaluation WBCs 17.9, platelet 361 Macrocytic anemia Chronic Hemoglobin 8.3 over hematocrit 26.8 We will continue to monitor Transaminitis transaminitis AST 51 ALT normal at 11 Acute kidney injury acute kidney injury BUN 21 creatinine 0.63 Hypoalbuminemia hypoalbuminemia 2.6 Contact dermatitis on scalp Patient sees Derm outpatient GERD PPI Tobacco use Nicotine patch Educated on smoking cessation DVT prophylaxis Full code Clear liquid diet Discharge Plan: Home Plan to discharge in: 48 Hours - Advance Directives Does patient have a Living Will: No Does patient have a Durable POA for Healthcare: No - Code Status/Comfort Care Code Status: Full Code Physician Review: Patient Assessed, Agree with Above Assessment and Plan Critical Care: No Time Spent Managing Pts Care (In Minutes): 35 Physician Review: Patient Assessed, Agree with Above Assessment and Plan
[2023-08-05] MEDS ORDERED: NA CHLORIDE 0.9% 500 ML IV ONE (08:57)
[2023-08-05] MEDS ORDERED: POTASSIUM CL SA 10 MEQ TAB PO ONE (09:00)
[2023-08-05] MEDS ORDERED: CEFTRIAXONE 1,000 MG in NA CHLORIDE 0.9% 50 ML IVPB SCH (09:00)
[2023-08-05] MEDS ORDERED: AZITHROMYCIN IV 500 MG in NA CHLORIDE 0.9% 250 ML IVPB SCH (09:00)
[2023-08-05] MEDS: CEFEPIME 1 GM in NA CHLORIDE 0.9% 100 ML IV SCH ×2 (09:43→21:48)
[2023-08-05] MEDS: METHYLPREDNISOLONE 40 MG INJ IV SCH ×2 (09:43→16:34)
[2023-08-05] MEDS: HYDROCODONE/APAP 10/325 TAB PO PRN ×4 (10:13→21:48)
[2023-08-05 11:01] LABS: SARS-COV-2 RT PCR NEGATIVE (NEGATIVE)
--- NOTE | 2023-08-05 11:42 | RAD REPORT ---
EXAM DESCRIPTION: CT - Thorax Wo Con - 08/05/2023 9:03 am CLINICAL HISTORY: pneumonia COMPARISON: Thorax Wo Con dated 06/05/2023; Chest Single View dated 08/04/2023 TECHNIQUE: Axial thin cut images of the chest were obtained without IV contrast. Multiplanar reforma ts were generated and reviewed. All CT scans are performed using dose optimization technique as appropriate and may include automated exposure control or mA/KV adjustment according to patient size. FINDINGS: Geographic central predominant ground-glass and consolidative opacities with central inter stitial prominence. Pattern is moderately progressive since the prior exam. 5 millimeter left lower l obe calcified granuloma. No pleural thickening or pleural effusion. No pneumothorax. No abnormal mediastinal or hilar masses or lymphadenopathy seen. No significant aortic or pulmonary a rtery findings. Assessment is limited in the absence of IV contrast. No chest wall mass or abnormal axillary lymphadenopathy. Evaluation of the solid abdominal structures reveals no suspicious findings. IMPRESSION: Moderately progressive pattern of geographic ground-glass and consolidative centrally pr edominant opacities. Differential considerations include pulmonary edema or ARDS, less likely multifo wanda pneumonia. Please correlate clinically.
--- NOTE | 2023-08-05 12:21 | P.CNS ---
Date of Consult: 08/05/23 Reason for Consult: Respiratory failure pneumonia Chief Complaint: Shortness of breath History of Present Illness: Patient is 42 years of age multiple medical problems current hospital admissions admitted with cough congestion waning of pain With bilateral infiltrates BiPAP Allergies acetaminophen [From Darvocet-N 100] Allergy (Verified 03/15/13 14:12) Itching/Hives/Rash propoxyphene napsylate [From Darvocet-N 100] Allergy (Verified 03/15/13 14:12) Itching/Hives/Rash Home Medications: Pantoprazole [Protonix Tab*] 40 mg PO BID 03/03/23 ALPRAZolam [Xanax*] 0.5 mg PO TID PRN #30 tab 03/11/23 Albuterol Neb [Proventil 0.083% Neb Soln] 2.5 mg NEB [id number] PRN #60 amp 03/11/23 Hydrocodone 10/APAP 325 [[place] 10/325*] 1 tab PO Q6H PRN #30 tab 03/11/23 Ipratropium Neb [Atrovent*] 0.5 mg NEB [id number] #60 amp 03/11/23 Chlorhexidine 4% [Betasept*] 120 ml TP DAILY 5 Days #5 bottle 06/10/23 Doxycycline Hyclate 100 mg PO BID #14 cap 06/10/23 Iron Polysaccharide Complex [Polysaccharide Iron] 150 mg PO DAILY #30 cap 06/10/23 Mupirocin Calcium [Bactroban Nasal*] 1 appl MAIKEL BID 7 Days #1 tube 06/10/23 levoFLOXacin [Levaquin*] 750 mg PO DAILY #10 tab 06/10/23 predniSONE [Prednisone*] 20 mg PO BID #10 tab 06/10/23 - Past Medical/Surgical History Diabetic: No -: Anxiety disorder -: Nicotine dependence -: Hypertension -: GERD -: Chronic back pain -: BTL - Family History Father Medical History: Cancer Notes: pelvic cancer Mother Medical History: Cancer Notes: lung cnacer, brain cancer Brother Notes: SIDS - Social History Smoking Status: Current every day smoker Alcohol use: No CD- Drugs: No Caffeine use: No Place of Residence: Home Review of Systems General: Fever, Weakness Respiratory: Shortness of Breath Physical Examination Temp Pulse Resp BP Pulse Ox 98.7 F 104 H 27 H 94/56 L 99 08/05/23 10:16 08/05/23 10:16 08/05/23 10:16 08/05/23 10:16 08/05/23 10:16 General: Alert, Oriented x3, Moderate distress Respiratory: Crackles/rales Cardiovascular: No edema, Regular rate/rhythm, Normal S1 S2 Gastrointestinal: Normal bowel sounds, Soft and benign Musculoskeletal: No clubbing, No swelling Laboratory Data (last 24 hrs) 08/04/23 20:50 PT 22.5 H INR 2.05 APTT 22.3 L - Problems (1) Community acquired bilateral lower lobe pneumonia Current Visit: No Status: Acute Plan: Patient is 42 years of age admitted with bilateral pneumonia and the patient was admitted in May for chest x-ray improved and was discharged and now we see recurrent infiltrate and HIV status is negative patient will need a bronchoscopy
[2023-08-05] MEDS: levoFLOXacin 750 MG TAB PO SCH (12:55)
[2023-08-05] MEDS ORDERED: ACETAMINOPHEN 325 MG TABLET PO PRN (17:00)
--- NOTE | 2023-08-05 18:06 | EKG ---
Test Date: 2023-08-04 Test Time: 20:37:20 Depilatory Painter: MIGEL MEASUREMENT RESULTS: Intervals: Rate: 127 TX: 114 QRSD: 78 QT: 302 QTc: 438 [place]: P: 64 TX: 114 QRS: 70 T: 39 INTERPRETIVE STATEMENTS: Sinus tachycardia Biatrial enlargement Abnormal ECG Compared to ECG 06/19/2023 22:05:12 No significant changes Electronically Signed On 08-05-23 18:04:50 CDT by Duane Fernando
[2023-08-05] MEDS: ALBUTEROL 2.5 MG/3 ML NEB SOL NEB PRN (21:09)
[2023-08-05] MEDS: ALPRAZOLAM 0.25 MG TABLET PO PRN (21:48)
[2023-08-06] MEDS: HYDROCODONE/APAP 10/325 TAB PO PRN ×4 (01:44→20:48)
[2023-08-06] MEDS: METHYLPREDNISOLONE 40 MG INJ IV SCH ×3 (01:45→16:51)
[2023-08-06] MEDS: IPRATROPIUM BROM 0.5MG/2.5ML NEB SCH ×4 (01:50→19:33)
[2023-08-06] MEDS: ALBUTEROL 2.5 MG/3 ML NEB SOL NEB PRN ×2 (01:50→19:33)
[2023-08-06 04:56] LABS: Absolute Lymphocytes (CBC) 0.8 K/uL (0.7-4.9); Lymphocytes % 3.7 % (15.3-44.8); MCV 79.4 fL (80-100); MPV 7.9 fL (7.6-11.3); Platelets 416 thou/uL (152-406); RBC Red Blood Cell Count 3.27 M/uL (3.86-4.86)
[2023-08-06 05:09] LABS: Potassium 3.7 mEq/L (3.5-5.1)
[2023-08-06 05:10] LABS: Phosphorus 1.3 mg/dL (2.5-4.9)
[2023-08-06 05:27] LABS: Anisocytosis 1+; Blood Morphology Comment NOTED (NOT SEEN); Hypochromasia 1+; Platelet Estimate ADEQ
[2023-08-06] MEDS ORDERED: POTASSIUM CL SA 10 MEQ TAB PO ONE (06:00)
--- NOTE | 2023-08-06 06:56 | ECHO ---
HEIGHT: ft in WEIGHT: 114 lb 15.89 oz DATE OF STUDY: 08/05/[address]: Kyle Walker MD 2-DIMENSIONAL: YES M.MODE: YES DOPPLER: YES COLOR FLOW: YES TDS: PORTABLE: YES DEFINITY: BUBBLE STUDY: DIAGNOSIS: RESPIRATORY FAILURE BILATERAL INFILTRATE CARDIAC HISTORY: CATHERIZATION: SURGERY: PROSTHETIC VALVE: PACEMAKER: MEASUREMENTS (cm) DIASTOLIC (NORMALS) SYSTOLIC (NORMALS) IVSd 0.9 (0.6-1.2) LA Diam 2.5 (1.9-4.0) LVEF 52% LVIDd 4.2 (3.5-5.7) LVIDs 3.1 (2.0-3.5) %FS 27% LVPWd 0.9 (0.6-1.2) Ao Diam 2.6 (2.0-3.7) 2 DIMENSIONAL ASSESSMENT: RIGHT ATRIUM: NORMAL LEFT ATRIUM: NORMAL RIGHT VENTRICLE: NORMAL LEFT VENTRICLE: NORMAL TRICUSPID VALVE: MILD TRICUSPID REGURGITATION MITRAL VALVE: MILD MITRAL REGURGITATION PULMONIC VALVE: NORMAL AORTIC VALVE: NORMAL PERICARDIAL EFFUSION: NONE AORTIC ROOT: NORMAL LEFT VENTRICULAR WALL MOTION: NORMAL DOPPLER/COLOR FLOW: SEE BELOW COMMENTS: 1. NORMAL LEFT VENTRICULAR EJECTION FRACTION 55-60% 2. NORMAL WALL MOTION 3. NORMAL DIASTOLIC FUNCTION 4. MILD TRICUSPID REGURGITATION 5. MILD MITRAL REGURGITATION TECHNOLOGIST: YISEL MONZON
[2023-08-06] MEDS: NICOTINE 21 MG/PAT TD SCH (08:51)
[2023-08-06] MEDS: POTASS/SODIUM PHOSPHATE 1 PKT POWD.PACK PO SCH ×2 (08:51→11:18)
[2023-08-06] MEDS: levoFLOXacin 750 MG TAB PO SCH (08:51)
[2023-08-06] MEDS: PANTOPRAZOLE 40 MG INJ IVP SCH ×2 (08:51→20:49)
[2023-08-06] MEDS: CEFEPIME 1 GM in NA CHLORIDE 0.9% 100 ML IV SCH ×2 (08:52→20:49)
--- NOTE | 2023-08-06 09:45 | P.PN ---
Subjective Date of Service: 08/06/23 Primary Care Provider: Mayra Buck Chief Complaint: Shortness of breath Subjective: Improving, Doing well History of Present Illness: 42-year-old female with a past history of hypertension, GERD, pneumonia, tobacco use presents to the emergency room with shortness of breath. She reports associated productive cough, congestion that was worse today. She reports pain with coughing, 9 out of 10. She has been admitted 3 times in the last year with pneumonia. She denies chest pain, nausea vomiting fever diarrhea chills. Plan to admit for sepsis secondary to pneumonia, acute hypoxic respiratory failure, tobacco use. Patient is on BiPAP, treated with Rocephin, azithromycin, albuterol chest x-ray patchy bilateral airspace disease concerning for pneumonia, pneumonitis laboratory evaluation, vital signs blood pressure 94/73 pulse 135 respirations 24 temperature 98.7, 94% Laboratory evaluation WBCs 20.70, left shift 92.2, microcytic anemia 9.3, acute kidney injury BUN 20 creatinine 0.80 glucose 129 lactic normal at 2.0 transaminitis AST 51 ALT normal at 11 Hypoloc 2.6 UA pending 29.3,, troponin normal 6.3 BNP MUSIC PRODUCER elevated at 985. 08/05/2023 Subjective Patient is alert and oriented, on Airvo FiO2 70% %, 30 L , respiratory rate 20. Patient is sitting up in the bed Answering questions appropriately with with no distress Patient reports shortness of breath any mild exertion No acute distress noticed at this time Patient denies any pain <Magan Su - Last Filed: 08/06/23 18:04> Date of Service: 08/06/23 <Los Clay - Last Filed: 08/06/23 22:18> Review of Systems 10-point ROS is otherwise unremarkable <Magan Su - Last Filed: 08/06/23 18:04> Physical Examination - Vital Signs Temperature: 97.2 F Blood Pressure: 123/73 Pulse: 102 Respirations: 20 Pulse Ox (%): 96 - Studies Microbiology Data (last 24 hrs): 08/04/23 21:05 Blood - Blood Anaerobic Blood Culture - Final 08/04/23 20:50 Blood - Blood Anaerobic Blood Culture - Final <Magan Su - Last Filed: 08/06/23 18:04> - Studies Microbiology Data (last 24 hrs): 08/04/23 21:05 Blood - Blood Anaerobic Blood Culture - Final 08/04/23 20:50 Blood - Blood Anaerobic Blood Culture - Final <Los Clay - Last Filed: 08/06/23 22:18> Assessment And Plan - Plan Physical Examination - Physical Exam General: Alert, Oriented x3, Acute distress, Other (unkept) HEENT: Atraumatic, Normocephalic Neck: Supple, 2+ carotid pulse no bruit, JVD not distended Respiratory: BL crackles on auscultation Cardiovascular: Other (Tachycardia) Capillary refill: <2 Seconds Gastrointestinal: Normal bowel sounds, Soft and benign Musculoskeletal: No clubbing, No swelling Integumentary: Other (sores on head, JILLIAN, head shaved, ) Assessment and Plan - Plan Assessment and plan Acute hypoxic respiratory failure secondary to pneumonia Sepsis without shock secondary to pneumonia Acute, improving patient on Airvo 70%, 30 L of oxygen, breathing 20/min, SPO2 97%., tolerating well, no distress at this time Pulmonary consult. Seen by Dr. Menezes Patient on Airvo nebs, ceftriaxone azithromycin, Solu-Medro, as needed analgesics, antiemetics evaluation, vital signs blood pressure 94/73 pulse 105 respirations 22 temperature 98.7, 94% on BiPAP-normal saline 500 IV bolus ordered We will monitor the blood pressure closely Laboratory evaluation WBCs 17.9, platelet 361 Macrocytic anemia Chronic Hemoglobin 8.3 over hematocrit 26.8 We will continue to monitor Transaminitis transaminitis AST 51 ALT normal at 11 Acute kidney injury acute kidney injury , improving BUN 16 creatinine 0.68 Hypoalbuminemia hypoalbuminemia 2.6 Contact dermatitis on scalp Patient sees Derm outpatient GERD PPI Hypomagnesemia Acute magnesium 1.3 Replace magnesium as per electrolyte protocol Tobacco use Nicotine patch Educated on smoking cessation DVT prophylaxis Full code Clear liquid diet Discharge Plan: Home Plan to discharge in: 48 Hours - Advance Directives Does patient have a Living Will: No Does patient have a Durable POA for Healthcare: No - Code Status/Comfort Care Code Status: Full Code Physician Review: Patient Assessed, Agree with Above Assessment and Plan Critical Care: No Time Spent Managing Pts Care (In Minutes): 35 Discharge Plan: Home Plan to discharge in: 48 Hours - Code Status/Comfort Care Code Status Assessed: Yes (Full code) Code Status: Full Code Physician Review: Patient Assessed, Agree with Above Assessment and Plan Time Spent Managing PTS Care (In Minutes): 35 (minutes) <Magan Su - Last Filed: 08/06/23 18:04> Physician Review: Patient Assessed, Agree with Above Assessment and Plan <Los Clay - Last Filed: 08/06/23 22:18>
[2023-08-06 10:36] LABS: ALT/SGPT < 10 U/L (13-56); AST/SGOT 38 U/L (15-37); Albumin 2.3 g/dL (3.4-5.0); Alkaline Phosphatase 107 U/L (45-117); Bilirubin Direct < 0.1 mg/dL (0-0.2); Bilirubin Indirect, Calculated ND mg/dL (0.2-0.8); Bilirubin Total 0.2 mg/dL (0.2-1.0); Protein, Total 6.1 g/dL (6.4-8.2)
--- NOTE | 2023-08-06 11:39 | P.PN ---
Subjective Date of Service: 08/06/23 Primary Care Provider: Dr. Clay [facility] Chief Complaint: Diffuse bilateral pneumonia No change in patient's condition still short of breath hypoxic on high flow productive sputum Review of Systems General: Weakness Respiratory: Cough, Shortness of Breath Physical Examination - Vital Signs Temperature: 97.2 F Blood Pressure: 123/73 Pulse: 102 Respirations: 20 Pulse Ox (%): 96 - Physical Exam General: Alert, Moderate distress Respiratory: Crackles/rales Cardiovascular: No edema, Regular rate/rhythm, Normal S1 S2 - Studies Microbiology Data (last 24 hrs): 08/04/23 21:05 Blood - Blood Anaerobic Blood Culture - Final 08/04/23 20:50 Blood - Blood Anaerobic Blood Culture - Final Assessment And Plan - Current Problems (Diagnosis) (1) Community acquired bilateral lower lobe pneumonia Current Visit: No Status: Acute Plan: Patient admitted with bilateral pneumonia currently on 70% high flow oxygen we will plan to titrate O2 down as in the acceptable range will consider bronchoscopy discussed with the patient labs reviewed there been slight decline in her hemoglobin also consider pulmonary hemorrhage syndrome have ordered ANCA and anti-GBA work-up ordered for diffuse alveolar hemorrhage syndrome patient has a coagulopathy elevated PT/INR elevated vitamin K urine drug screen Physician Review: Patient Assessed, Agree with Above Assessment and Plan
--- NOTE | 2023-08-06 11:58 | RAD REPORT ---
EXAM DESCRIPTION: Martin Single View08/06/2023 11:21 am CLINICAL HISTORY: Chest pain COMPARISON: August 05, 2023 FINDINGS: Mild worsening in the right and no significant change in the left pulmonary opacities Heart remains enlarged IMPRESSION: Mild worsening in moderate right and no significant change in the moderate left pulmonar y opacities which may represent pneumonitis, pneumonia or pulmonary edema
[2023-08-06] MEDS ORDERED: FUROSEMIDE 20 MG/ 2ML VIAL IV ONE (12:00)
[2023-08-06] MEDS ORDERED: VITAMIN K (ADULT) 10 MG/ML SQ ONE (12:00)
[2023-08-06 13:37] LABS: Barbiturates NEGATIVE (NEGATIVE); Benzodiazepines NEGATIVE (NEGATIVE); Cocaine NEGATIVE (NEGATIVE); METHAMPHETAM NEGATIVE (NEGATIVE); Opiates POSITIVE (NEGATIVE); Phencyclidine NEGATIVE (NEGATIVE); THC Cannibis NEGATIVE (NEGATIVE)
[2023-08-06 14:02] LABS: Methadone ND (NEGATIVE)
[2023-08-06] MEDS: ALPRAZOLAM 0.25 MG TABLET PO PRN (20:49)
[2023-08-07] MEDS: METHYLPREDNISOLONE 40 MG INJ IV SCH ×3 (00:45→17:31)
[2023-08-07 01:28] LABS: Rheumatoid Factor NEG (NEG)
[2023-08-07] MEDS: IPRATROPIUM BROM 0.5MG/2.5ML NEB SCH ×4 (01:39→19:25)
[2023-08-07 07:10] LABS: Absolute Lymphocytes (CBC) 0.7 K/uL (0.7-4.9); Hematocrit 24.8 % (36.0-45.0); Lymphocytes % 5.6 % (15.3-44.8); MCV 78.6 fL (80-100); MPV 7.7 fL (7.6-11.3); Platelets 383 thou/uL (152-406); RBC Red Blood Cell Count 3.16 M/uL (3.86-4.86)
[2023-08-07 07:12] LABS: Protime INR 1.13
--- NOTE | 2023-08-07 07:28 | RAD REPORT ---
EXAM DESCRIPTION: RAD - Chest Single View - 08/07/2023 4:19 am CLINICAL HISTORY: pneumonia COMPARISON: Chest Single View dated 08/06/2023; Chest Single View dated 08/04/2023; Chest Single Vie w dated 06/19/2023; Chest Single View dated 06/09/2023; Thorax Wo Con dated 08/05/2023; Thorax Wo Con da jennie 06/05/2023 FINDINGS: Lines: None. Lungs: Multifocal bilateral ill-defined airspace disease similar prior. Pleural: No significant pleural effusions or pneumothorax. Cardiac: The heart size is within normal limits. Mediastinum: Within normal limits. Bones: No acute fractures. Other: None IMPRESSION: No significant change in aeration compared with yesterday. Similar widespread bilateral airspace opacities that may reflect edema and/or pneumonia.
[2023-08-07 07:31] LABS: Magnesium 2.2 mg/dL (1.6-2.4); Potassium 3.4 mEq/L (3.5-5.1)
[2023-08-07 07:35] LABS: Phosphorus 1.3 mg/dL (2.5-4.9)
[2023-08-07] MEDS ORDERED: POTASSIUM CL SA 10 MEQ TAB PO ONE (09:00)
[2023-08-07] MEDS ORDERED: CEFEPIME 2 GM in NA CHLORIDE 0.9% 100 ML IV SCH (09:00)
[2023-08-07] MEDS ORDERED: POTASSIUM PHOS IN 0.9 % NACL 15 MMOL/250 ML BAG IV ONE (09:00)
--- NOTE | 2023-08-07 09:05 | P.PN ---
Subjective Date of Service: 08/07/23 Primary Care Provider: Los Buck Chief Complaint: Shortness of breath Subjective: No new changes History of Present Illness: 42-year-old female with a past history of hypertension, GERD, pneumonia, tobacco use presents to the emergency room with shortness of breath. She reports associated productive cough, congestion that was worse today. She reports pain with coughing, 9 out of 10. She has been admitted 3 times in the last year with pneumonia. She denies chest pain, nausea vomiting fever diarrhea chills. Plan to admit for sepsis secondary to pneumonia, acute hypoxic respiratory failure, tobacco use. Patient is on BiPAP, treated with Rocephin, azithromycin, albuterol chest x-ray patchy bilateral airspace disease concerning for pneumonia, pneumonitis laboratory evaluation, vital signs blood pressure 94/73 pulse 135 respirations 24 temperature 98.7, 94% Laboratory evaluation WBCs 20.70, left shift 92.2, microcytic anemia 9.3, acute kidney injury BUN 20 creatinine 0.80 glucose 129 lactic normal at 2.0 transaminitis AST 51 ALT normal at 11 Hypoloc 2.6 UA pending 29.3,, troponin normal 6.3 BNP [facility] elevated at 985. 08/05/2023 Subjective Patient is alert and oriented, on Airvo FiO2 50% %, 20 L , respiratory rate 20. Patient is sitting up in the bed Answering questions appropriately with with no distress Discussed with the respiratory therapist, patient is requiring higher FiO2 to maintain the oxygenation Patient for bronchoscopy if patient is able to wean the oxygen to lower FiO2 Patient reports shortness of breath any mild exertion No acute distress noticed at this time Patient denies any pain Physical Examination - Vital Signs Temperature: 97.4 F Blood Pressure: 91/66 Pulse: 104 Respirations: 18 Pulse Ox (%): 95 Assessment And Plan - Plan Physical Examination - Physical Exam General: Alert, Oriented x3, Acute distress, Other (unkept) HEENT: Atraumatic, Normocephalic Neck: Supple, 2+ carotid pulse no bruit, JVD not distended Respiratory: BL crackles on auscultation Cardiovascular: Other (Tachycardia) Capillary refill: <2 Seconds Gastrointestinal: Normal bowel sounds, Soft and benign Musculoskeletal: No clubbing, No swelling Integumentary: Other (sores on head, JILLIAN, head shaved, ) Assessment and Plan - Plan Assessment and plan Acute hypoxic respiratory failure secondary to pneumonia Sepsis without shock secondary to pneumonia Acute, improving patient on Airvo 50%, 20 L of oxygen, breathing 20/min, SPO2 97%., tolerating well, no distress at this time Continue to wean FiO2 as tolerated, keep SPO2 above 92% Seen by Dr. Menezes, planning for Bronchoscopy tomorrow if patient is able to wean FiO2 down Patient on Airvo, nebs, ceftriaxone azithromycin, Solu-Medro, as needed analgesics, antiemetics Evaluation, vital signs blood pressure 94/73 pulse 105 respirations 22 temperature 98.7, 94% on BiPAP-normal saline 500 IV bolus ordered We will monitor the blood pressure closely Laboratory evaluation WBCs 17.9, platelet 361 Macrocytic anemia Chronic Hemoglobin 7.9 over hematocrit 24.8 We will continue to monitor Transaminitis * Acute, improving AST 38 ALT normal at less than 10 * Adequate urine output Acute kidney injury * acute kidney injury , improving BUN 11 creatinine 0.50 * Adequate urine output Hypoalbuminemia hypoalbuminemia 2.6 Contact dermatitis on scalp Patient sees Derm outpatient GERD PPI Hypomagnesemia Acute magnesium 1.3 Replace magnesium as per electrolyte protocol Tobacco use Nicotine patch Educated on smoking cessation DVT prophylaxis Full code Clear liquid diet Discharge Plan: Home Plan to discharge in: 48 Hours - Advance Directives Does patient have a Living Will: No Does patient have a Durable POA for Healthcare: No - Code Status/Comfort Care Code Status: Full Code Physician Review: Patient Assessed, Agree with Above Assessment and Plan Critical Care: No Time Spent Managing Pts Care (In Minutes): 35 Physician Review: Patient Assessed, Agree with Above Assessment and Plan
[2023-08-07] MEDS: NICOTINE 21 MG/PAT TD SCH (09:35)
[2023-08-07] MEDS: HYDROCODONE/APAP 10/325 TAB PO PRN ×3 (09:36→17:52)
[2023-08-07] MEDS: levoFLOXacin 750 MG TAB PO SCH (09:36)
[2023-08-07] MEDS: ALBUTEROL 2.5 MG/3 ML NEB SOL NEB PRN (13:35)
[2023-08-07] MEDS: MORPHINE 4 MG/ML SYR IV PRN ×2 (15:58→21:54)
[2023-08-07] MEDS: ALPRAZOLAM 0.25 MG TABLET PO PRN (21:54)
[2023-08-08] MEDS: HYDROCODONE/APAP 10/325 TAB PO PRN ×5 (00:13→21:04)
[2023-08-08] MEDS: METHYLPREDNISOLONE 40 MG INJ IV SCH ×2 (00:13→09:15)
[2023-08-08] MEDS: PANTOPRAZOLE 40MG TABLET PO SCH ×2 (00:34→09:19)
[2023-08-08] MEDS: IPRATROPIUM BROM 0.5MG/2.5ML NEB SCH ×2 (01:35→08:00)
[2023-08-08] MEDS: MORPHINE 4 MG/ML SYR IV PRN ×2 (05:52→06:29)
[2023-08-08 07:05] LABS: Phosphorus 1.9 mg/dL (2.5-4.9); Potassium 4.1 mEq/L (3.5-5.1)
[2023-08-08] MEDS ORDERED: LIDOCAINE 4% TOP SOLUTION ONE (07:20)
[2023-08-08] MEDS ORDERED: Phenylephrine HCl 10 MG/ML 1 ML VIAL ONE (07:21)
[2023-08-08] MEDS ORDERED: LIDOCAINE 1% MPF 5 ML VIAL ONE (07:37)
[2023-08-08] MEDS ORDERED: propofoL 200 MG/20 ML VIAL IV ONE ×2 (07:37→07:38)
[2023-08-08] MEDS ORDERED: ONDANSETRON 4 MG/2 ML VIAL ONE (07:37)
[2023-08-08] MEDS ORDERED: FENTANYL CITR 100 MCG/2 ML ONE (07:38)
[2023-08-08] MEDS ORDERED: LIDOCAINE 1% MPF 30 ML VIAL ONE (07:43)
[2023-08-08] MEDS ORDERED: NA CHLORIDE 0.9% 500 ML ONE (07:50)
[2023-08-08] MEDS ORDERED: LIDOCAINE VISCOUS 2% 10ML ORAL SOLN ONE (07:58)
[2023-08-08 07:59] LABS: Absolute Lymphocytes (CBC) 0.8 K/uL (0.7-4.9); Hematocrit 25.9 % (36.0-45.0); Lymphocytes % 7.7 % (15.3-44.8); MCV 79.2 fL (80-100); MPV 7.7 fL (7.6-11.3); Platelets 418 thou/uL (152-406); RBC Red Blood Cell Count 3.27 M/uL (3.86-4.86)
[2023-08-08] MEDS: NICOTINE 21 MG/PAT TD SCH (09:15)
[2023-08-08] MEDS: levoFLOXacin 750 MG TAB PO SCH (09:15)
[2023-08-08] MEDS: SOD FERRIC GLUC COMPLX/SUCROSE 125 MG in NA CHLORIDE 0.9% 100 ML IV SCH (09:15)
--- NOTE | 2023-08-08 12:07 | P.PN ---
Subjective Date of Service: 08/08/23 Primary Care Provider: Los Buck Chief Complaint: Respiratory failure pneumonia Patient is improving doing well states she is still requiring 8 to 10 L of oxygen no fever or chills no hemoptysis Review of Systems General: Weakness Respiratory: Shortness of Breath Physical Examination - Vital Signs Temperature: 97.6 F Blood Pressure: 126/90 Pulse: 99 Respirations: 16 Pulse Ox (%): 100 - Physical Exam General: Alert, Oriented x3 Respiratory: Crackles/rales Cardiovascular: No edema, Normal pulses, Regular rate/rhythm Assessment And Plan - Current Problems (Diagnosis) (1) Community acquired bilateral lower lobe pneumonia Current Visit: No Status: Acute Plan: Patient admitted with bilateral pneumonia coloscopy was scheduled for today her white count is now normalized patient requirements declined hemoglobin stable labs unremarkable logical studies are pending rheumatoid factor is negative scheduled for bronchoscopy today (2) Iron deficiency anemia Current Visit: Yes Status: Acute Plan: Agree with IV iron Qualifiers: Iron deficiency anemia type: unspecified iron deficiency Qualified Code(s): D50.9 - Iron deficiency anemia, unspecified Physician Review: Patient Assessed, Agree with Above Assessment and Plan
[2023-08-08] MEDS ORDERED: FUROSEMIDE 20 MG/ 2ML VIAL IV ONE (12:09)
--- NOTE | 2023-08-08 12:09 | P.OP ---
Date of Service: 08/08/23 (Bronchoscopy with bronchoscopy BAL from the right upper) Findings and Operative Technique Patient is 42 years of age admitted with diffuse bilateral pneumonia of unknown etiology HIV negative. Patient is requiring oxygen 8 to 10 L a minute. After obtaining informed consent from the patient she was premedicated by an esthesia was unable to pass the bronchoscope through her nasal passages bite- block was placed and a bronc and neck bronchoscope was inserted through the bite block without any difficulty finding normal trachea normal emmanuel has some copious mucoid changes in her respiratory tract I quickly obtained a bronchoalveolar lavage from the right upper lobe as she had significant desaturation but she did recover biopsies were performed specimen sent off for PCP AFB Gram stain and cytology Was unable to perform any other procedures due to his desaturation
[2023-08-08] MEDS: POTASS/SODIUM PHOSPHATE 1 PKT POWD.PACK PO SCH ×3 (12:38→13:52)
--- NOTE | 2023-08-08 17:13 | P.PN ---
Date of Service: 08/08/23 Progress Note Patient Name: CHATO YEUNG Date of : 78 Patient Status: Inpatient Attending Provider: Los Clay Date: 08/07/23 09:00 Initialization Date: 08/07/23 09:00 Subjective Patient is alert and oriented, on Airvo FiO2 50% %, 20 L , respiratory rate 20. Patient is sitting up in the bed Answering questions appropriately with with no distress Discussed with the respiratory therapist, patient is requiring higher FiO2 to maintain the oxygenation Patient for bronchoscopy if patient is able to wean the oxygen to lower FiO2 Patient reports shortness of breath any mild exertion No acute distress noticed at this time Patient denies any pain Physical Examination - Physical Exam General: Alert, Oriented x3, Acute distress, Other (unkept) HEENT: Atraumatic, Normocephalic Neck: Supple, 2+ carotid pulse no bruit, JVD not distended Respiratory: BL crackles on auscultation Cardiovascular: Other (Tachycardia) Capillary refill: <2 Seconds Gastrointestinal: Normal bowel sounds, Soft and benign Musculoskeletal: No clubbing, No swelling Integumentary: Other (sores on head, JILLIAN, head shaved, - Vital Signs Temperature: 97.4 F Blood Pressure: 91/66 Pulse: 104 Respirations: 18 Pulse Ox (%): 95 Assessment And Plan Acute hypoxic respiratory failure secondary to pneumonia Sepsis without shock secondary to pneumonia Acute, improving patient on nasal cannula liters L of oxygen, breathing 20/min, SPO2 97%., tolerating well, no distress at this time Continue to wean FiO2 as tolerated, keep SPO2 above 92% Seen by Dr. Menezes, planning for Bronchoscopy done today Patient on nebs, ceftriaxone azithromycin, Solu-Medro, as needed analgesics, antiemetics We will monitor the blood pressure closely Macrocytic anemia Chronic Hemoglobin 7.9 over hematocrit 24.8 on 08/07/2023 We will continue to monitor Transaminitis * Acute, improving AST 38 ALT normal at less than 10 * Adequate urine output Acute kidney injury * acute kidney injury , echo BUN 14, creatinine 0.40 * Adequate urine output GERD PPI Tobacco use Nicotine patch Educated on smoking cessation DVT prophylaxis Full code Clear liquid diet - Code Status/Comfort Care Code Status: Full Code
[2023-08-08] MEDS: predniSONE 20 MG TAB PO SCH (21:04)
[2023-08-08] MEDS: ALPRAZOLAM 0.25 MG TABLET PO PRN (21:04)
[2023-08-08] MEDS ORDERED: PANTOPRAZOLE 40MG TABLET PO ONE (21:16)
[2023-08-08] MEDS ORDERED: MORPHINE 2 MG/ML SYR IV ONE (23:07)
[2023-08-09] MEDS: HYDROCODONE/APAP 10/325 TAB PO PRN ×6 (02:21→23:06)
[2023-08-09] MEDS: PANTOPRAZOLE 40MG TABLET PO SCH (06:25)
[2023-08-09 06:51] LABS: Protime INR 1.01
[2023-08-09] MEDS ORDERED: NA CHLORIDE 0.9% 0 ML ONE (07:58)
[2023-08-09] MEDS: NICOTINE 21 MG/PAT TD SCH (08:11)
[2023-08-09] MEDS: predniSONE 20 MG TAB PO SCH ×2 (08:12→19:21)
--- NOTE | 2023-08-09 08:20 | RAD REPORT ---
EXAM DESCRIPTION: RAD - Chest Single View - 08/09/2023 4:16 am CLINICAL HISTORY: Pneumonia Chest pain. COMPARISON: Chest Single View dated 08/07/2023; Chest Single View dated 08/06/2023; Chest Single Vie w dated 08/04/2023; Chest Single View dated 06/19/2023 FINDINGS: Portable technique limits examination quality. Moderate bilateral pulmonary opacities are present, showing mild improvement since 08/07/2023 study. The heart is upper limit normal in size. No displaced fractures. IMPRESSION: Mild improvement in bilateral pulmonary opacities since comparative study.
[2023-08-09] MEDS ORDERED: MORPHINE 2 MG/ML SYR IV ONE ×3 (08:32→20:49)
[2023-08-09] MEDS ORDERED: ENOXAPARIN 40 MG/0.4 ML SQ SCH (09:00)
[2023-08-09] MEDS: SOD FERRIC GLUC COMPLX/SUCROSE 125 MG in NA CHLORIDE 0.9% 100 ML IV SCH (09:25)
[2023-08-09] MEDS: levoFLOXacin 750 MG TAB PO SCH (09:25)
[2023-08-09 09:44] LABS: Absolute Lymphocytes (CBC) 1.8 K/uL (0.7-4.9); Hematocrit 28.5 % (36.0-45.0); Lymphocytes % 16.5 % (15.3-44.8); MCV 79.8 fL (80-100); MPV 7.6 fL (7.6-11.3); Platelets 384 thou/uL (152-406); RBC Red Blood Cell Count 3.58 M/uL (3.86-4.86)
[2023-08-09 10:01] LABS: Potassium 3.8 mEq/L (3.5-5.1)
--- NOTE | 2023-08-09 10:15 | P.PN ---
Subjective Date of Service: 08/09/23 Primary Care Provider: Los Buck Chief Complaint: Respiratory failure pneumonia Patient is improving doing well now on 2 L of nasal cannula oxygen with desaturation on exertion Review of Systems General: Weakness Respiratory: Shortness of Breath Physical Examination - Vital Signs Temperature: 98.2 F Blood Pressure: 126/78 Pulse: 89 Respirations: 17 Pulse Ox (%): 92 - Physical Exam General: Alert, Oriented x3 Respiratory: Clear to auscultation bilaterally, Diminished Assessment And Plan - Current Problems (Diagnosis) (1) Community acquired bilateral lower lobe pneumonia Current Visit: No Status: Acute Plan: Patient is doing much better improving currently on 2 L of nasal cannula oxygen White count is normal vital signs all stable x-ray shows significant improvement plan for discharge prednisone 10 mg twice a day for 2 weeks and oxygen if needed antibiotics not needed follow-up with me in 2-week diagnostic data on the bronchioloalveolar fluid is still pending (2) Iron deficiency anemia Current Visit: Yes Status: Acute Plan: Agree with IV iron Qualifiers: Iron deficiency anemia type: unspecified iron deficiency Qualified Code(s): D50.9 - Iron deficiency anemia, unspecified Physician Review: Patient Assessed, Agree with Above Assessment and Plan
--- NOTE | 2023-08-09 10:45 | P.PN ---
Date of Service: 08/09/23 Subjective Patient is alert and oriented, Breathing normally on oxygen 2 L. Patient is sitting up in the bed, no acute distress noted Report shortness of breath with exertion Answering questions appropriately with with no distress Bronchoscopy on 08/07/2023-pending test results Physical Examination - Physical Exam General: Alert, Oriented x3, Acute distress, Other (unkept) HEENT: Atraumatic, Normocephalic Respiratory: BL crackles on auscultation Cardiovascular: Heart rate regular, no edema Capillary refill: <2 Seconds Musculoskeletal: No clubbing, No swelling Integumentary: Other (sores on head, JILLIAN, head shaved, - Vital Signs Temperature: 97.4 F Blood Pressure: 91/66 Pulse: 104 Respirations: 18 Pulse Ox (%): 95 Assessment And Plan Acute hypoxic respiratory failure secondary to pneumonia Sepsis without shock secondary to pneumonia Acute, improving patient on nasal cannula 2 liters L of oxygen, breathing 20/min, SPO2 97%., tolerating well, no distress at this time Seen by Dr. Menezes, planning for Bronchoscopy done 08/07/2023 Patient on nebs, ceftriaxone azithromycin, Solu-Medro, as needed analgesics, antiemetics We will monitor the blood pressure closely Discharge planning started Macrocytic anemia Chronic Hemoglobin 7.9 over hematocrit 24.8 on 08/07/2023 On IV iron We will continue to monitor Acute kidney injury * acute kidney injury , echo BUN 14, creatinine 0.40 * Adequate urine output GERD PPI Tobacco use Nicotine patch Educated on smoking cessation DVT prophylaxis Full code Clear liquid diet
[2023-08-09 10:58] LABS: Anisocytosis 1+; Blood Morphology Comment NOTED (NOT SEEN); Platelet Estimate ADEQ; White Blood Cell Scan OK (OK)
[2023-08-09 10:59] LABS: Hypochromasia 1+; Polychromasia 1+
[2023-08-09] MEDS: ALPRAZOLAM 0.25 MG TABLET PO PRN (21:10)
[2023-08-09] MEDS ORDERED: MAGNES/ALUMIN/SIMET 30ML UCUP PO PRN (23:26)
[2023-08-10] MEDS ORDERED: MORPHINE 2 MG/ML SYR IV ONE ×2 (03:08→06:55)
[2023-08-10] MEDS: PANTOPRAZOLE 40MG TABLET PO SCH (05:44)
[2023-08-10] MEDS: HYDROCODONE/APAP 10/325 TAB PO PRN (05:55)
--- NOTE | 2023-08-10 07:25 | P.PN ---
Date of Service: 08/10/23 Subjective Patient is alert and oriented, on oxygen 2 L. Patient is sitting up in the bed, complaining of severe abdominal pain, started last night around 8 PM, received morphine, no pain relief Tachycardic, no fever no respiratory distress Report shortness of breath with exertion Answering questions appropriately with with no distress Bronchoscopy on 08/07/2023-pending test results Physical Examination - Physical Exam General: Alert, Oriented x3, Acute distress, Other (unkept) HEENT: Atraumatic, Normocephalic Respiratory: BL crackles on auscultation Cardiovascular: Heart rate regular, no edema Capillary refill: <2 Seconds GI/ : Complaint of abdomen pain, all over the abdomen, constant pain, severe rating 10 out of 10. No distention, soft to touch bowel sounds positive all 4 quadrants, patient had a bowel movement yesterday small amount. Musculoskeletal: No clubbing, No swelling Integumentary: Other (sores on head, JILLIAN, head shaved, - Vital Signs Temperature: 98 F Blood Pressure: 113/75 Pulse: 134 Respirations: 20 Pulse Ox (%): 95 Assessment And Plan Abdominal pain Acute respiratory failure secondary to pneumonia Microcytic anemia Acute kidney injury GERD Tobacco use Severe abdominal pain: * Acute, Complaint of abdomen pain, all over the abdomen, constant pain, severe rating 10 out of 10. No distention, soft to touch bowel sounds positive all 4 quadrants, patient had a bowel movement yesterday small amount. Pain not relieved by analgesics including morphine and Broadus. * No abdominal distention, positive bowel sounds all 4 quadrants * Pending KUB results * Ordered CT abdomen with contrast, morphine sulfate 2 mg IV push x1 * Transferred to ICU for a perforated gastric ulcer started complaining of sudden onset of abdominal pain she has had ulcers before no respiratory complaint * Patient will be seen by general surgeon Dr. 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 Bronchoscopy done 08/07/2023 * Currently on nebs, Levaquin , Solu-Medro, as needed analgesics, antiemetics * We will monitor the blood pressure closely * Discharge planning started Macrocytic anemia * Chronic, improved * Hemoglobin 7.9 over hematocrit 24.8 on 08/07/2023 * On IV iron * We will continue to monitor Acute kidney injury * acute kidney injury , echo BUN 14, creatinine 0.40 * Adequate urine output GERD * PPI Tobacco use * Nicotine patch * Educated on smoking cessation DVT prophylaxis Full code Clear liquid diet <Magan Su - Last Filed: 08/10/23 14:33> Patient with severe / intractable abdominal pain overnight. Given morphine and unable to get comfortable. KUB obtained without any obvious free air, +moderate stool burden Patient seen early this AM, severe abdominal pain, +burping, +severe tenderness diffusely, sinus tachycardia small mar for BM yesterday CTabd/pelvis ordered STAT, revealing distended stomach with perforated gastric ulcer Dr. Worthington immediately contacted and consulted patient NPO, IVF, antibiotics, Protonix drip, dilaudid to go to OR today <Los Clay - Last Filed: 08/10/23 20:12>
[2023-08-10 07:32] LABS: Absolute Lymphocytes (CBC) 1.2 K/uL (0.7-4.9); Hematocrit 39.3 % (36.0-45.0); Lymphocytes % 7.5 % (15.3-44.8); Platelets 531 thou/uL (152-406); RBC Red Blood Cell Count 4.97 M/uL (3.86-4.86)
[2023-08-10 07:45] LABS: Magnesium 2.1 mg/dL (1.6-2.4); Potassium 3.9 mEq/L (3.5-5.1)
[2023-08-10] MEDS ORDERED: NA CHLORIDE 0.9% 0 ML ONE (07:55)
--- NOTE | 2023-08-10 08:17 | RAD REPORT ---
EXAM DESCRIPTION: CTAbdomen Pelvis W Contrast - 08/10/2023 7:52 am CLINICAL HISTORY: abdominal pain COMPARISON: Chest Single View dated 08/09/2023; Abdomen 1 View (KUB) dated 08/10/2023 TECHNIQUE: CT of the abdomen and pelvis was performed. All CT scans are performed using dose optimization technique as appropriate and may include automated exposure control or mA/KV adjustment according to patient size. FINDINGS: Lower chest: Bilateral ground-glass opacities are partially imaged but this is a known fin ding. Small left effusion. Liver: Mild intrahepatic biliary duct dilatation. No focal mass. Biliary: Cholecystectomy. Extrahepatic biliary ductal dilatation is present. The common bile duct joseph sures 10 millimeters. Stomach: There is pronounced thickening at the gastric antrum. Low-attenuation edema within the wall. There is narrowing at the peripyloric region. Duodenum: No significant focal abnormality. Pancreas: No significant abnormality. Spleen: No significant abnormality. Adrenal: No suspicious lesions. Kidney/ureter: No hydronephrosis. No renal calculi. Retroperitoneum: No retroperitoneal adenopathy. Vascular: No aneurysm. Bowel: Moderate colonic stool.. Peritoneum: Ascites and small volume of free air. Bladder: Grossly unremarkable. Reproductive: No adnexal masses. Bones: No acute fracture. Other: n/a IMPRESSION: Findings concerning for a perforated gastric ulcer with small volume of intraperitoneal free air. Discussed with Dr. Valldaares by Dr. Conroy at 0812 on 08/10/23. Recommend surgical consultation . Extrahepatic biliary duct dilatation may be related to the postcholecystectomy state. Correlate with LFTs. MRCP could further evaluate for a retained stone if there is clinical concern.
[2023-08-10] MEDS ORDERED: HYDROMORPHONE HCL 1 MG/ML INJ IV PRN (08:25)
[2023-08-10] MEDS ORDERED: DOCUSATE NA 100 MG CAP PO SCH (09:00)
[2023-08-10] MEDS ORDERED: NALOXEGOL OXALATE 12.5 MG TABLET PO SCH (09:00)
[2023-08-10] MEDS: NICOTINE 21 MG/PAT TD SCH (09:00)
[2023-08-10] MEDS: predniSONE 20 MG TAB PO SCH (09:00)
[2023-08-10] MEDS ORDERED: PANTOPRAZOLE 40 MG INJ IVP SCH (09:00)
[2023-08-10] MEDS: levoFLOXacin 750 MG TAB PO SCH (09:00)
[2023-08-10] MEDS: NA CHLORIDE 0.9% 1,000 ML IV SCH ×2 (09:02→19:00)
[2023-08-10] MEDS ORDERED: PANTOPRAZOLE INJ 80 MG in NA CHLORIDE 0.9% 250 ML IV SCH (10:00)
[2023-08-10] MEDS: SOD FERRIC GLUC COMPLX/SUCROSE 125 MG in NA CHLORIDE 0.9% 100 ML IV SCH (10:03)
[2023-08-10] MEDS ORDERED: HYDROMORPHONE HCL 1 MG/ML INJ IV ONE (10:11)
--- NOTE | 2023-08-10 10:23 | P.PN ---
Subjective Date of Service: 08/10/23 Primary Care Provider: Los Buck Chief Complaint: Perforated gastric ulcer Patient is 42 years of age for to the ICU for a perforated gastric ulcer started complaining of sudden onset of abdominal pain she has had ulcers before no respiratory complaint Review of Systems General: Weakness Respiratory: Shortness of Breath Gastrointestinal: Abdominal Pain Physical Examination - Vital Signs Temperature: 97.1 F Blood Pressure: 123/85 Pulse: 131 Respirations: 28 Pulse Ox (%): 98 - Physical Exam General: Alert, Oriented x3 Respiratory: Clear to auscultation bilaterally Cardiovascular: No edema, Regular rate/rhythm Gastrointestinal: Hypoactive, Tenderness, Rebound - Studies Microbiology Data (last 24 hrs): 08/04/23 21:05 Blood - Blood Aerobic Blood Culture - Final No growth in 5 days. 08/04/23 21:05 Blood - Blood Anaerobic Blood Culture - Final 08/04/23 20:50 Blood - Blood Aerobic Blood Culture - Final No growth in 5 days. 08/04/23 20:50 Blood - Blood Anaerobic Blood Culture - Final Assessment And Plan - Current Problems (Diagnosis) (1) Community acquired bilateral lower lobe pneumonia Current Visit: No Status: Acute Plan: Patient is clinically improving we will have to hold off on the steroid on 2 L of nasal cannula oxygen (2) Iron deficiency anemia Current Visit: Yes Status: Acute Plan: Agree with IV iron Qualifiers: Iron deficiency anemia type: unspecified iron deficiency Qualified Code(s): D50.9 - Iron deficiency anemia, unspecified (3) Perforated gastric ulcer Current Visit: Yes Status: Acute Plan: Patient now has a perforated gastric ulcer n.p.o. start on IV antibiotics DC p.o. prednisone and levofloxacin pain relief surgical consultation Qualifiers: Gastric ulcer chronicity: acute Qualified Code(s): K25.1 - Acute gastric ulcer with perforation Physician Review: Patient Assessed, Agree with Above Assessment and Plan
[2023-08-10] MEDS ORDERED: Ringers Lactate 1,000 ML IV ONE (13:06)
--- NOTE | 2023-08-10 13:14 | P.CNS ---
Date of Consult: 08/10/23 PC: I was asked to see this 42-year-old female in regards to her acute abdomen. HPC: Patient admitted in the hospital with exacerbation of her COPD. Suddenly last night she had sudden onset acute piercing abdominal pain. She became tachycardic. A CT scan has been ordered which demonstrates a gastric perforation. 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 Has been on steroids, smokes Sys R: No other relevant complaint O/E: Sitting up in the bed in the ICU, comfortable at the moment, has received narcotic HEENT: O2 in place Chest: Chest movement equal bilaterally Abd: Acute abdomen Data: CT scan demonstrates free air and fluid Impression: Perforated viscus, most likely stomach Plan: I will taken the operating room for exploratory laparotomy and repair of gastric perforation. The risks of this procedure have been discussed with the patient. The possibility of bleeding, infection, injury to bowel and surrounding structures were explained. Healing been suboptimal due to steroids, and cigarette smoking. She understands, and wants to proceed
[2023-08-10] MEDS: FENTANYL CITR 100 MCG/2 ML ONE ×2 (13:17→13:31)
[2023-08-10] MEDS ORDERED: SUCCINYLCHOLINE 20 MG/ML (10 ML) IV ONE (13:24)
[2023-08-10] MEDS: PIPER TAZO 3.375 GM in NA CHLORIDE 0.9% 100 ML IV SCH ×2 (13:25→17:00)
[2023-08-10] MEDS ORDERED: MIDAZOLAM HCL 2 MG/2 ML INJ ONE (13:37)
[2023-08-10] MEDS ORDERED: ROCURONIUM 50 MG/5 ML VIAL IV ONE (13:37)
[2023-08-10] MEDS ORDERED: FENTANYL CITR 100 MCG/2 ML ONE (13:37)
[2023-08-10] MEDS ORDERED: propofoL 200 MG/20 ML VIAL IV ONE (13:37)
[2023-08-10] MEDS ORDERED: Phenylephrine HCl 10 MG/ML 1 ML VIAL ONE (14:08)
[2023-08-10] MEDS ORDERED: GLYCOPYRROLATE 0.2 MG/ML SYR ONE (14:08)
[2023-08-10] MEDS ORDERED: NEOSTIGMINE 1 MG/ML -10 ML VIAL ONE (14:08)
[2023-08-10] MEDS ORDERED: ONDANSETRON 4 MG/2 ML VIAL ONE (15:11)
[2023-08-10] MEDS ORDERED: dexAMETHasone 10 MG/ML VIAL ONE (15:11)
--- NOTE | 2023-08-10 15:12 | P.OP ---
Preoperative diagnosis: Peritonitis with perforated viscus Postoperative diagnosis: The same with perforated gastric ulcer Primary procedure: Exploratory laparotomy Secondary procedure: Ashwin patch of gastric ulcer Anesthesia: General Estimated blood loss: Less than 20 cc Specimen: None sent Operative Technique: The patient brought the operating room and placed supine on the table. After the induction of adequate general endotracheal anesthesia, the area of the abdomen was prepped with a DuraPrep solution, and she was draped in the usual aseptic manner. A generous midline incision was made. This was brought down through the skin and subcutaneous tissue. The fascia was opened in the midline. We were now able to get access to the peritoneal cavity in the upper abdomen. A finger was placed into the peritoneal cavity to protect the underlying organs. After clearing any adhesions with a sweeping finger, we were able to open our muscles down to approximately 4 fingers breath below the umbilicus. We now encountered the peritoneal cavity. There was an obvious gastric ulcer leak. There was clotted white adherent mucoid type proteinaceous film stuck to the stomach and the surrounding omentum. This was gradually debrided from the surrounding area. The abdomen was then irrigated with a copious amount of a saline solution. The left lobe of the liver was quite low over the body of the stomach. Underneath this area again we had a considerable amount of contamination. This was debrided with saline, and using laparotomy pads to remove the debris. We could see on the body of the stomach just before the antrum that there was an obvious hole in the stomach. At this point the irrigating fluid having been virtually clear, piece of omentum was laid up as a trial fit to cover this whole. Sutures were now placed on either side of the gastric perforation. The mesh was laid between him and the sutures tied over it securing it in place. 1 stitch of chromic was used to help hold the omental patch superiorly. Good coverage having been obtained, no further leakage being observed, an incision was made on the right side of the abdomen. Through this we were able to place a Wil- Mahoney drain in the area between the liver, and the anterior portion of the stomach. At this point adequate hemostasis having been ensured, and the wound irrigated until the effluent was clear, the midline incision was closed with a running suture of nylon. We did do some interrupted sutures of PDS [id number] across the fascia as well as this patient is high risk for developing a postoperative incisional hernia and/or dehiscence. At the end of the procedure the skin edges were approximated with rei. Iodoform gauze was placed between the rei for the full length of our incision. The Wil-Mahoney drain was sutured in place, and at the end of the procedure the needle sponge instrument count were reported as correct. She was in a stable condition when sent to recovery room. Estimated blood loss was less than 20 cc. Complications: None Drain(s): JAEL drain Transferred to: Recovery Room
[2023-08-10] MEDS ORDERED: NALOXONE 0.4 MG/ML VIAL ONE (15:31)
[2023-08-10] MEDS: HYDROMORPHONE HCL 2 MG/ML inj IV PRN ×2 (16:50→20:34)
[2023-08-10] MEDS: PANTOPRAZOLE INJ 80 MG in NA CHLORIDE 0.9% 250 ML IV SCH (18:16)
--- NOTE | 2023-08-10 18:17 | RAD REPORT ---
EXAM DESCRIPTION: RAD - Abdomen 1 View (KUB) - 08/10/2023 6:07 pm CLINICAL HISTORY: Placement of NGT/OGT. Post Insertion. COMPARISON: <Comparisons> FINDINGS: Enteric tube tip overlies the stomach in satisfactory position. Laparotomy rei. Airspa ce disease in the lungs again noted. Midline surgical drain. IMPRESSION: Enteric tube tip overlies the stomach in satisfactory position.
--- NOTE | 2023-08-10 21:16 | RAD REPORT ---
EXAM DESCRIPTION: RAD - Abdomen 1 View (KUB) - 08/10/2023 2:06 am CLINICAL HISTORY: The patient is 42 years old and is Female; abdominal pain, distended abdomen [facility] MAIN TECHNIQUE: Frontal supine views of the abdomen/pelvis. COMPARISON: No relevant prior studies available. FINDINGS: LOWER THORAX: Visualized lung bases are well-aerated. INTRAPERITONEAL SPACE: No overt pneumoperitoneum identified on these supine images. GASTROINTESTINAL TRACT: Moderate stool burden with nonobstructive bowel gas pattern. ORGANS: Right upper quadrant cholecystectomy clips are noted. BONES/JOINTS: Unremarkable. VASCULATURE: Small bilateral intrapelvic phleboliths. IMPRESSION: No acute findings. Electronically signed by: Francisco Javier Melendez MD 08/10/2023 2:40 AM CDT Due to temporary technical issues with the PACS/Fluency reporting system, reports are being signed by the in house radiologists without review as a courtesy to insure prompt reporting. The interpreting radiologist is fully responsible for the content of the report.
[2023-08-11] MEDS: PIPER TAZO 3.375 GM in NA CHLORIDE 0.9% 100 ML IV SCH ×3 (00:35→16:09)
[2023-08-11] MEDS: HYDROMORPHONE HCL 2 MG/ML inj IV PRN ×5 (00:42→16:09)
[2023-08-11] MEDS: NA CHLORIDE 0.9% 1,000 ML IV SCH ×2 (03:48→16:09)
[2023-08-11] MEDS: PANTOPRAZOLE INJ 80 MG in NA CHLORIDE 0.9% 250 ML IV SCH ×3 (03:49→22:47)
[2023-08-11 04:49] LABS: Absolute Lymphocytes (CBC) 0.9 K/uL (0.7-4.9); Hematocrit 30.6 % (36.0-45.0); Lymphocytes % 6.3 % (15.3-44.8); MCV 80.7 fL (80-100); MPV 7.6 fL (7.6-11.3); Platelets 477 thou/uL (152-406); RBC Red Blood Cell Count 3.79 M/uL (3.86-4.86)
[2023-08-11 05:04] LABS: Bilirubin Total 0.3 mg/dL (0.2-1.0); Magnesium 2.3 mg/dL (1.6-2.4); Potassium 4.9 mEq/L (3.5-5.1); Protein, Total 5.6 g/dL (6.4-8.2)
--- NOTE | 2023-08-11 07:49 | RAD REPORT ---
EXAM DESCRIPTION: Martin Single View08/11/2023 6:31 am CLINICAL HISTORY: Shortness of breath COMPARISON: August 09 1023 FINDINGS: [id number] bilateral pulmonary opacities. The heart is normal size. A NG tube with its tip stomach. IMPRESSION: Mild to moderate bilateral pulmonary opacities without significant change
[2023-08-11] MEDS: NICOTINE 21 MG/PAT TD SCH (08:02)
--- NOTE | 2023-08-11 08:14 | P.PN ---
Date of Service: 08/11/23 Subjective Patient is alert and oriented, on oxygen 4 L. Patient is sitting up in the bed, abdominal pain is better controlled on dilaudid prn. Sinus Tachycardia on lower 100s, no fever no respiratory distress Report shortness of breath with exertion Answering questions appropriately with with no distress Bronchoscopy on 08/07/2023-pending test results Physical Examination - Physical Exam General: Alert, Oriented x3, Acute distress, Other (unkept) HEENT: Atraumatic, Normocephalic Respiratory: BL crackles on auscultation Cardiovascular: Heart rate regular, no edema Capillary refill: <2 Seconds GI/ : Abdomen tender to touch. midabdominal drssing dry and intact. 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 Pain is better controlled on Dilaudid as needed No distention, soft to touch, hypoactive bowel sounds, mid abdominal surgical dressing dry and intact. * Sinus tachycardia in 120s, increases with activities, patient on IV hydration, Will continue to monitor blood pressures maintained. * CT abdomen with contrast 08/10/2023 * Will continue to follow-up with Dr. Worthington general surgeon * Patient on IV hydration and antibiotic Acute hypoxic respiratory failure secondary to pneumonia Sepsis without shock secondary to pneumonia * Acute, improving patient on nasal cannula 4 liters L of oxygen, breathing 20/min, SPO2 100% %., tolerating well, no distress at this time * Follow-up by Dr. Walker, leadership intern status post Bronchoscopy done 08/07/2023 * Currently on nebs, Levaquin , Solu-Medro, as needed analgesics, antiemetics * We will monitor respiratory status closely * Discharge planning in process Macrocytic anemia * Chronic, improved * Hemoglobin 7 9.4 over hematocrit 30 on 08/07/2023 * On IV iron supplementation * We will continue to monitor Acute kidney injury * acute kidney injury , BUN 27, creatinine 0.80 * Adequate urine output * Will continue to monitor on IV hydration. GERD * PPI Tobacco use * Nicotine patch * Educated on smoking cessation DVT prophylaxis Full code Clear liquid diet <Magan Su - Last Filed: 08/11/23 08:22> Patient seen and examined on rounds this morning. Plan of care discussed with PRODUCT DEVELOPER Georges doing well post-op; thirsty, got up to bedside commode on 4L NC NGT to LIWS continue PPI, antibiotics, pain medication, IVF if no enteral nutrition started in next 24-48hrs, consider TPN downgrade from ICU this afternoon <Los Clay - Last Filed: 08/11/23 21:47>
[2023-08-11] MEDS: SOD FERRIC GLUC COMPLX/SUCROSE 125 MG in NA CHLORIDE 0.9% 100 ML IV SCH (09:16)
--- NOTE | 2023-08-11 16:53 | P.PN ---
Date of Service: 08/11/23 S: Patient states she feels much better today, pain is a lot less than when she experienced the other day. No specific complaints, just asking for some the drink. O: Vital signs are stable, incisions are clean, minimal drainage out through the JAEL drain. A: Patient is surgically stable status post exploratory laparotomy and Ashwin patch for perforated ulcer. P: Continue current therapy, we will leave the in the G-tube in for another 24 to 48 hours. She may have clear liquids for now. I am concerned that her serum albumin is only 2, but would prefer not to use her GI tract at the moment until we get a chance for the patch to set. Continue current therapy. Encourage ambulation and incentive spirometry.
[2023-08-11] MEDS: HYDROMORPHONE HCL 1 MG/ML INJ IV PRN ×2 (19:15→22:06)
[2023-08-12] MEDS: NA CHLORIDE 0.9% 1,000 ML IV SCH ×3 (00:32→21:00)
[2023-08-12] MEDS: PIPER TAZO 3.375 GM in NA CHLORIDE 0.9% 100 ML IV SCH ×3 (00:32→16:27)
[2023-08-12] MEDS: HYDROMORPHONE HCL 1 MG/ML INJ IV PRN ×6 (01:02→19:45)
[2023-08-12 05:24] LABS: Absolute Lymphocytes (CBC) 0.7 K/uL (0.7-4.9); Hematocrit 26.8 % (36.0-45.0); Lymphocytes % 6.8 % (15.3-44.8); MCV 81.2 fL (80-100); MPV 7.5 fL (7.6-11.3); Platelets 368 thou/uL (152-406); RBC Red Blood Cell Count 3.29 M/uL (3.86-4.86)
[2023-08-12 05:46] LABS: Albumin 1.8 g/dL (3.4-5.0); Bilirubin Total 0.4 mg/dL (0.2-1.0); Potassium 3.5 mEq/L (3.5-5.1); Protein, Total 5.4 g/dL (6.4-8.2)
[2023-08-12 06:01] LABS: Phosphorus 1.3 mg/dL (2.5-4.9)
[2023-08-12] MEDS ORDERED: POTASSIUM PHOS IN 0.9 % NACL 15 MMOL/250 ML BAG IV ONE (07:00)
[2023-08-12] MEDS: LORazepam 2 MG/ML VIAL IV PRN ×2 (08:04→19:37)
--- NOTE | 2023-08-12 09:33 | P.PN ---
Date of Service: 08/12/23 Subjective: Patient is alert and oriented x3 Still with abd pain but improving, tolerating small amount clear liquids Sinus Tachycardia on lower 100s, no fever no respiratory distress ROS: 10 point ROS as noted above, otherwise negative Physical exam General: Alert, Oriented x3, Acute distress, Other (unkept) HEENT: Atraumatic, Normocephalic Respiratory: BL crackles on auscultation Cardiovascular: Heart rate regular, no edema Capillary refill: <2 Seconds GI/ : Abdomen tender to touch. midabdominal drssing dry and intact, binder now in place NGT to LIWS Musculoskeletal: No clubbing, No swelling Integumentary: Other (sores on head, JILLIAN, head shaved, mid abdominal dressing) Vitals reviewed Problem List S/P Exploratoy laparotomy for repair of Gastric Prforation-08/10/2023 Abdominal pain Acute respiratory failure secondary to pneumonia Microcytic anemia Acute kidney injury GERD Tobacco use S/P Exploratoy Laparotomy for repair of Gastric Prforation-08/10/2023 Abdominal pain: * Acute, status post exploratory lap lap day 2 , patient is sitting up in the bed, no acute distress. Pain is better controlled on Dilaudid as needed No distention, soft to touch, hypoactive bowel sounds, mid abdominal surgical dressing dry and intact, abd binder in place * Sinus tachycardia in 100-110s, increases with activities, patient on IV hydration, Will continue to monitor blood pressures maintained. * Continue IVF, ABX, as need pain meds * NGT to LIWS per surgery * Tolerating small amount clear liquids today, plan for PICC and TPN * Appreciate further input from general surgery Acute hypoxic respiratory failure secondary to pneumonia Sepsis without shock secondary to pneumonia * Acute, improving patient on nasal cannula 3 liters L of oxygen, breathing 18/min, SPO2 100% %., tolerating well, no distress at this time * Bronchoscopy done 08/07/2023- Micro results with presumptive sulema albicans on fluconzaole * Currently on nebs, Levaquin , Solu-Medrol, as needed analgesics, antiemetics * We will monitor respiratory status closely Macrocytic anemia * Monitor CBC, on IV iron, transfuse PRN to maintain hgb >7 Acute kidney injury * Improved, continue IVF * Adequate urine output * Will continue to monitor on IV hydration. GERD * PPI Tobacco use * Nicotine patch * Educated on smoking cessation VTE: SCDs, discuss when to restart lovenox with surgery Code: Full Dispo: 3-4 days Time Spent Managing Pts Care (In Minutes): 35 <Addy Wade - Last Filed: 08/12/23 09:24> Patient seen and examined on rounds this morning. Plan of care reviewed with DOLL WIG HACKLER Addy improving slowly, denies worsening symptoms. NGT to LIWS, clear liquids per Dr. Worthington IV iron empiric antibiotics start fluconazole - presumptive sulema albicans from bronch pain control, wean dilaudid <Los Clay - Last Filed: 08/12/23 21:06>
[2023-08-12] MEDS: SOD FERRIC GLUC COMPLX/SUCROSE 125 MG in NA CHLORIDE 0.9% 100 ML IV SCH (09:37)
[2023-08-12] MEDS: FLUCONAZOLE 400 MG IVPB 400 MG/200 ML BAG IV SCH (09:37)
[2023-08-12] MEDS: NICOTINE 21 MG/PAT TD SCH (09:38)
[2023-08-12] MEDS: PANTOPRAZOLE INJ 80 MG in NA CHLORIDE 0.9% 250 ML IV SCH ×2 (09:38→21:10)
[2023-08-12] MEDS: Mupirocin NASAL 2 APPL/1 GM TUBE NAS SCH ×2 (09:38→21:01)
--- NOTE | 2023-08-12 13:56 | P.PN ---
Date of Service: 08/12/23 S: Patient has no specific complaints today, appears to be oversedated at the moment. O: Vital signs are stable, nasogastric tube is still in place. Nurses to remove packing from midline incision. A: Surgically stable, I will do a saline load test to check the status of her nasogastric tube. This patient is receiving a lot of Dilaudid at the moment, and needs to be cut back. P: Reduce Dilaudid, saline load test, remove packing on incision, incentive spirometer for patient.
[2023-08-12] MEDS ORDERED: MINERAL OIL 30 ML UCUP FT ONE (16:08)
[2023-08-12] MEDS ORDERED: HYDROMORPHONE HCL 0.5 MG/0.5 ML INJ ONE ×2 (16:33→22:39)
[2023-08-12] MEDS ORDERED: MINERAL OIL 30 ML UCUP ONE (16:37)
[2023-08-12] MEDS: ACETAMINOPHEN 500 MG TAB PO PRN (17:19)
[2023-08-12 20:02] LABS: Magnesium 1.8 mg/dL (1.6-2.4); Potassium 2.8 mEq/L (3.5-5.1)
[2023-08-12 20:03] LABS: Phosphorus 1.1 mg/dL (2.5-4.9)
[2023-08-12] MEDS: HYDROMORPHONE HCL 0.5 MG/0.5 ML INJ IV PRN (22:29)
[2023-08-13] MEDS: PIPER TAZO 3.375 GM in NA CHLORIDE 0.9% 100 ML IV SCH ×3 (01:19→18:24)
[2023-08-13] MEDS: HYDROMORPHONE HCL 0.5 MG/0.5 ML INJ IV PRN ×4 (01:20→23:15)
[2023-08-13] MEDS ORDERED: HYDROMORPHONE HCL 0.5 MG/0.5 ML INJ ONE (01:31)
[2023-08-13] MEDS: ACETAMINOPHEN 500 MG TAB PO PRN (02:06)
[2023-08-13] MEDS ORDERED: POTASSIUM PHOS 30 MM in NA CHLORIDE 0.9% 500 ML IV ONE (02:48)
[2023-08-13] MEDS ORDERED: HYDROMORPHONE HCL 0.5 MG/0.5 ML INJ IV ONE (02:51)
[2023-08-13] MEDS: PANTOPRAZOLE INJ 80 MG in NA CHLORIDE 0.9% 250 ML IV SCH ×3 (04:00→19:59)
[2023-08-13 05:16] VITALS: BMI 19.3
[2023-08-13] MEDS: NA CHLORIDE 0.9% 1,000 ML IV SCH ×3 (06:16→23:16)
[2023-08-13 06:18] LABS: Hematocrit 23.9 % (36.0-45.0); MCV 79.6 fL (80-100); MPV 6.9 fL (7.6-11.3); Platelets 344 thou/uL (152-406); RBC Red Blood Cell Count 3.01 M/uL (3.86-4.86)
[2023-08-13 06:28] LABS: Bicarbonate 31 mEq/L (21-32); Glomerular Filtration Rate 140 ml/min (=/>90); Glucose Level 96 mg/dL (74-106); Magnesium 1.9 mg/dL (1.6-2.4); Phosphorus 1.8 mg/dL (2.5-4.9); Sodium Level 138 mEq/L (136-145)
[2023-08-13 06:30] LABS: BUN Blood Urea Nitrogen < 3 mg/dL (7-18); Potassium 2.6 mEq/L (3.5-5.1)
[2023-08-13] MEDS ORDERED: AA 5%/D20W/ELECTROLYTES-TPN 2,000 ML IV SCH (08:00)
[2023-08-13] MEDS: POTASSIUM PHOS IN 0.9 % NACL 15 MMOL/250 ML BAG IV SCH ×2 (08:54→13:07)
[2023-08-13] MEDS: FLUCONAZOLE 400 MG IVPB 400 MG/200 ML BAG IV SCH (08:54)
[2023-08-13] MEDS: NICOTINE 21 MG/PAT TD SCH (08:54)
[2023-08-13] MEDS ORDERED: PIPERACIL/TAZO 3.375 GM VIAL IV ONE (08:55)
[2023-08-13] MEDS: Mupirocin NASAL 2 APPL/1 GM TUBE NAS SCH ×2 (08:55→19:44)
[2023-08-13] MEDS: HYDROMORPHONE HCL 1 MG/ML INJ IV PRN ×2 (09:25→13:07)
--- NOTE | 2023-08-13 12:45 | P.PN ---
Subjective Date of Service: 08/13/23 Primary Care Provider: Los Buck Chief Complaint: Perforated gastric ulcer Patient is on clear liquid diet. NG tube to suction is in place. No issues overnight. Currently maintained on 4 to 5 L of oxygen by nasal cannula. Physical Examination - Vital Signs Temperature: 97.8 F Blood Pressure: 127/80 Pulse: 103 Respirations: 18 Pulse Ox (%): 96 Assessment And Plan - Plan Physical exam General: Alert, Oriented x3, Acute distress. HEENT: NG tube to suction in place. Respiratory: BL crackles on auscultation, bilateral diminished breath sounds. Cardiovascular: Heart rate regular, no edema GI: Abdomen nondistended, midabdominal drssing dry and intact, binder now in place. Musculoskeletal: No clubbing, No swelling Vitals reviewed Problem List S/P Exploratoy laparotomy for repair of Gastric Prforation-08/10/2023 Abdominal pain Acute respiratory failure secondary to pneumonia Microcytic anemia Acute kidney injury GERD Tobacco use S/P Exploratoy Laparotomy for repair of Gastric Perforation-08/10/2023 * Acute, status post exploratory lap lap day 2 * Pain is better controlled. Patient has no needed Dilaudid since this morning. * Sinus tachycardia in 100-110s, increases with activities, continue IV hydration. * Continue TPN, ABX. * NGT to LIWS per surgery * Tolerating small amount clear liquids. * Continue Protonix drip * General surgery Dr. Worthington to follow. Acute hypoxic respiratory failure secondary to pneumonia Sepsis without shock secondary to pneumonia * Acute. * Bronchoscopy done 08/07/2023- Micro results with presumptive sulema albicans on fluconzaole * Currently on nebs, Levaquin , Solu-Medrol, as needed analgesics, antiemetics Macrocytic anemia/acute blood loss anemia * Monitor CBC, on IV iron, transfuse PRN to maintain hgb >7 Tobacco use * Nicotine patch * Educated on smoking cessation VTE: SCDs. Code: Full
[2023-08-13] MEDS ORDERED: HYDROMORPHONE HCL 0.5 MG/0.5 ML INJ IV PRN (13:07)
[2023-08-13] MEDS: SOD FERRIC GLUC COMPLX/SUCROSE 125 MG in NA CHLORIDE 0.9% 100 ML IV SCH (13:10)
[2023-08-13] MEDS ORDERED: MINERAL OIL 30 ML UCUP FT ONE (14:51)
--- NOTE | 2023-08-13 14:51 | P.PN ---
Date of Service: 08/13/23 S: Patient more awake and alert today, says her abdomen is still sore. Mostly incisional in nature. O: Vital signs are stable, minimal out through the nasogastric tube. Abdomen is soft, no guarding or rebound. Minimal out through the JAEL drain. Incision is clean. A: Surgically stable, still has postop ileus but appears to be resolving. P. will give patient some mineral oil. Encourage ambulation. Continue with clear liquids. DC JAEL drain. Anticipate DC nasogastric tube in the morning, and advancing to soft diet. Patient is stable for floor transfer from a surgical point of view
--- NOTE | 2023-08-13 15:26 | RAD REPORT ---
EXAM DESCRIPTION: RAD - Chest Single View - 08/12/2023 11:23 pm CLINICAL HISTORY: The patient is 42 years old and is Female; PICC PLACEMENT TECHNIQUE: Frontal view of the chest. COMPARISON: No relevant prior studies available. FINDINGS: Lungs: Scattered interstitial and airspace opacities bilaterally. Pleural space: Unremarkable. No pneumothorax. Heart: Unremarkable. Mediastinum: Unremarkable. Bones/joints: No acute findings. Tubes, lines and devices: Right PICC with tip in the SVC. Nasogastric tube with tip and sidehole overlying the left upper quadrant. IMPRESSION: Scattered interstitial and airspace opacities bilaterally. Electronically signed by: Kumar Mancia MD 08/12/2023 11:36 PM CDT Due to temporary technical issues with the PACS/Fluency reporting system, reports are being signed by the in house radiologists without review as a courtesy to insure prompt reporting. The interpreting radiologist is fully responsible for the content of the report.
[2023-08-13] MEDS: LORazepam 2 MG/ML VIAL IV PRN (21:51)
[2023-08-14] MEDS: PIPER TAZO 3.375 GM in NA CHLORIDE 0.9% 100 ML IV SCH ×3 (00:46→18:28)
[2023-08-14] MEDS: NA CHLORIDE 0.9% 1,000 ML IV SCH ×3 (03:00→23:00)
[2023-08-14] MEDS: HYDROMORPHONE HCL 0.5 MG/0.5 ML INJ IV PRN ×7 (03:13→22:36)
[2023-08-14] MEDS: PANTOPRAZOLE INJ 80 MG in NA CHLORIDE 0.9% 250 ML IV SCH ×5 (06:23→21:59)
[2023-08-14 06:36] LABS: Hematocrit 22.9 % (36.0-45.0); MCV 81.1 fL (80-100); MPV 7.2 fL (7.6-11.3); Platelets 304 thou/uL (152-406); RBC Red Blood Cell Count 2.82 M/uL (3.86-4.86)
[2023-08-14 06:58] LABS: Bicarbonate 31 mEq/L (21-32); Glomerular Filtration Rate 122 ml/min (=/>90); Glucose Level 206 mg/dL (74-106); Sodium Level 140 mEq/L (136-145)
[2023-08-14 07:02] LABS: BUN Blood Urea Nitrogen < 3 mg/dL (7-18)
[2023-08-14 07:14] LABS: Potassium 2.6 mEq/L (3.5-5.1)
[2023-08-14 07:15] LABS: Phosphorus 0.7 mg/dL (2.5-4.9)
[2023-08-14] MEDS ORDERED: AA 5%/D20W/ELECTROLYTES-TPN 2,000 ML, Lipids 20% 250 ML with MULTIVITAMINS INJ 10 ML IV SCH ×6 (08:00→17:00)
[2023-08-14] MEDS ORDERED: AA 5%/D20W/ELECTROLYTES-TPN 2,000 ML IV SCH (08:00)
[2023-08-14] MEDS: FLUCONAZOLE 400 MG IVPB 400 MG/200 ML BAG IV SCH ×2 (09:00→21:48)
[2023-08-14] MEDS: SOD FERRIC GLUC COMPLX/SUCROSE 125 MG in NA CHLORIDE 0.9% 100 ML IV SCH (09:50)
[2023-08-14] MEDS: Mupirocin NASAL 2 APPL/1 GM TUBE NAS SCH ×2 (09:54→21:48)
[2023-08-14] MEDS: NICOTINE 21 MG/PAT TD SCH (09:55)
[2023-08-14] MEDS ORDERED: POTASSIUM PHOS 30 MM in NA CHLORIDE 0.9% 500 ML IV ONE (12:38)
--- NOTE | 2023-08-14 15:00 | P.PN ---
Subjective Date of Service: 08/14/23 Primary Care Provider: Los Buck Chief Complaint: Perforated gastric ulcer Patient is tolerating clear liquid diet. NG tube is in place. She is requiring 4 to 5 L of oxygen by nasal cannula. Physical Examination - Vital Signs Temperature: 98.8 F Blood Pressure: 116/78 Pulse: 99 Respirations: 18 Pulse Ox (%): 97 Assessment And Plan - Plan Physical exam General: Alert, Oriented x3, NAD. HEENT: NG tube to suction in place. Respiratory: B/L crackles on auscultation, bilateral diminished breath sounds. Cardiovascular: Heart rate regular, no edema GI: Abdomen non-distended, midabdominal dressing dry and intact, binder in place. JAEL drain. Musculoskeletal: No clubbing, No swelling Vitals reviewed Problem List S/P Exploratoy laparotomy for repair of Gastric Prforation-08/10/2023 Abdominal pain Acute respiratory failure secondary to pneumonia Microcytic anemia Acute kidney injury GERD Tobacco use S/P Exploratoy Laparotomy for repair of Gastric Perforation-08/10/2023 * Acute, status post exploratory lap. * Pain is better controlled. Patient has been needing less pain meds. * Sinus tachycardia in 100-110s, increases with activities, continue IV hydration. * Continue TPN, ABX. * NGT to LIWS per surgery * Tolerating clear liquids. * Change Protonix drip to IV Protonix twice daily. * General surgery Dr. Worthington is following. Acute hypoxic respiratory failure secondary to pneumonia Sepsis without shock secondary to pneumonia * Acute. * Bronchoscopy done 08/07/2023- Micro results with presumptive sulema albicans on fluconzaole * Currently on nebs, Levaquin , Solu-Medrol, as needed analgesics, antiemetics Macrocytic anemia/acute blood loss anemia * Monitor CBC, on IV iron. * Transfuse 1 more unit PRBC given significant hypoxia. Tobacco use * Nicotine patch * Educated on smoking cessation VTE: SCDs. Code: Full
[2023-08-14] MEDS ORDERED: NA CHLORIDE 0.9% 250 ML IV SCH (16:00)
[2023-08-14] MEDS: AA 5%/D20W/ELECTROLYTES-TPN 2,000 ML, Lipids 20% 250 ML with MULTIVITAMINS INJ 10 ML IV SCH ×3 (18:26)
[2023-08-14] MEDS: LORazepam 2 MG/ML VIAL IV PRN (20:58)
[2023-08-14 21:55] LABS: Bicarbonate 32 mEq/L (21-32); Glomerular Filtration Rate 135 ml/min (=/>90); Glucose Level 143 mg/dL (74-106); Magnesium 2.1 mg/dL (1.6-2.4); Phosphorus 1.9 mg/dL (2.5-4.9); Sodium Level 141 mEq/L (136-145)
[2023-08-14 22:13] LABS: BUN Blood Urea Nitrogen < 1 mg/dL (7-18); Potassium 2.6 mEq/L (3.5-5.1)
[2023-08-14] MEDS ORDERED: POTASSIUM PHOS IN 0.9 % NACL 15 MMOL/250 ML BAG IV ONE (22:17)
[2023-08-15] MEDS: PIPER TAZO 3.375 GM in NA CHLORIDE 0.9% 100 ML IV SCH ×3 (01:38→18:51)
[2023-08-15] MEDS: KCL 20 MEQ/100 mL IVPB 20 MEQ/100 ML BAG IV SCH ×2 (01:38→03:34)
[2023-08-15] MEDS: PANTOPRAZOLE INJ 80 MG in NA CHLORIDE 0.9% 250 ML IV SCH ×2 (02:00→11:33)
[2023-08-15] MEDS: HYDROMORPHONE HCL 0.5 MG/0.5 ML INJ IV PRN ×6 (02:05→22:49)
[2023-08-15] MEDS ORDERED: NA CHLORIDE 0.9% 250 ML IV SCH ×2 (03:00→09:00)
[2023-08-15] MEDS ORDERED: AA 5%/D20W/ELECTROLYTES-TPN 2,000 ML IV SCH (08:00)
[2023-08-15] MEDS: NICOTINE 21 MG/PAT TD SCH (08:15)
[2023-08-15] MEDS: Mupirocin NASAL 2 APPL/1 GM TUBE NAS SCH ×2 (08:17→21:38)
[2023-08-15] MEDS: NA CHLORIDE 0.9% 1,000 ML IV SCH ×2 (09:00→19:00)
[2023-08-15] MEDS: SOD FERRIC GLUC COMPLX/SUCROSE 125 MG in NA CHLORIDE 0.9% 100 ML IV SCH (09:11)
[2023-08-15 10:11] LABS: Hematocrit 23.4 % (36.0-45.0); MCV 80.9 fL (80-100); MPV 7.1 fL (7.6-11.3); Platelets 310 thou/uL (152-406); RBC Red Blood Cell Count 2.89 M/uL (3.86-4.86)
[2023-08-15 10:26] LABS: Bicarbonate 31 mEq/L (21-32); Glomerular Filtration Rate 140 ml/min (=/>90); Glucose Level 129 mg/dL (74-106); Sodium Level 142 mEq/L (136-145)
[2023-08-15 10:27] LABS: BUN Blood Urea Nitrogen < 3 mg/dL (7-18)
[2023-08-15 10:30] LABS: Phosphorus 1.1 mg/dL (2.5-4.9); Potassium 2.5 mEq/L (3.5-5.1)
[2023-08-15] MEDS ORDERED: POTASSIUM PHOS 30 MM in NA CHLORIDE 0.9% 500 ML IV ONE (10:39)
[2023-08-15] MEDS ORDERED: KCL 20 MEQ/100 mL IVPB 20 MEQ/100 ML BAG IV SCH (11:00)
[2023-08-15] MEDS: HYDROCODONE/APAP 5/325 MG TAB PO PRN ×3 (11:09→23:59)
[2023-08-15] MEDS ORDERED: SODIUM CHLORIDE 0.9% 10ML INJ IV PRN (13:33)
--- NOTE | 2023-08-15 13:34 | P.PN ---
Subjective Date of Service: 08/15/23 Primary Care Provider: Los Buck Chief Complaint: Perforated gastric ulcer Patient is tolerating clear liquid diet. NG tube is in place. She complains of uncontrolled pain. She is maintained on 4 to 5 L of oxygen by nasal cannula. Physical Examination - Vital Signs Temperature: 98.5 F Blood Pressure: 125/85 Pulse: 104 Respirations: 20 Pulse Ox (%): 92 Assessment And Plan - Plan Physical exam General: Alert, Oriented x3, NAD. HEENT: NG tube to suction in place. Respiratory: B/L crackles on auscultation, bilateral diminished breath sounds. Cardiovascular: Heart rate regular, no edema GI: Abdomen non-distended, dressing dry and intact, binder in place. JAEL drain. Musculoskeletal: No clubbing, No swelling Vitals reviewed Problem List S/P Exploratoy laparotomy for repair of Gastric Prforation-08/10/2023 Abdominal pain Acute respiratory failure secondary to pneumonia Microcytic anemia Acute kidney injury GERD Tobacco use S/P Exploratoy Laparotomy for repair of Gastric Perforation-08/10/2023 * Acute, status post exploratory lap. * Pain management with IV hydromorphone. Added oral [place]. * continue IV hydration. * D/C NG tube per Dr. Worthington * Continue TPN, ABX until oral intake improves. * NGT to LIWS per surgery * Tolerating clear liquids. * IV Protonix twice daily. * General surgery Dr. Worthington is following. * Increase activity as tolerated. Acute hypoxic respiratory failure secondary to pneumonia Sepsis without shock secondary to pneumonia * Acute. * Bronchoscopy done 08/07/2023- Micro results with presumptive sulema albicans on fluconzaole * Currently on nebs, Levaquin , Solu-Medrol, as needed analgesics, antiemetics * Wean oxygen as tolerated Macrocytic anemia/acute blood loss anemia * Monitor CBC, on IV iron. * Transfuse 1 more unit PRBC given significant hypoxia. Tobacco use * Nicotine patch * Educated on smoking cessation VTE: SCDs. Code: Full
--- NOTE | 2023-08-15 14:57 | P.PN ---
Date of Service: 08/15/23 S: Clinically patient actually looks much improved today. Bright-eyed, interactive, vital signs are stable. Has been tolerating clear liquids, having bowel movements. O: Wound is clean, nasogastric tube has been removed, abdomen is soft, A: Patient continues to improve status post exploratory laparotomy for perforated gastric ulcer and Ashwin patch. P: Patient still having some issues with her medical management. From my point of view she can advance her diet, and if tolerated be discharged soon. She can follow-up with me in my office next Saturday. Should she have any questions or problems during that interim time. She can return to the emergency room, or contact me.
[2023-08-15] MEDS ORDERED: KCL 20 MEQ/100 mL IVPB 20 MEQ/100 ML BAG IV ONE (15:45)
[2023-08-15] MEDS: AA 5%/D20W/ELECTROLYTES-TPN 2,000 ML IV SCH (16:46)
[2023-08-15] MEDS: FLUCONAZOLE 400 MG IVPB 400 MG/200 ML BAG IV SCH (21:00)
[2023-08-15] MEDS: PANTOPRAZOLE 40 MG INJ IVP SCH (21:00)
[2023-08-15] MEDS: LORazepam 2 MG/ML VIAL IV PRN (21:39)
[2023-08-16 01:14] LABS: Hematocrit 26.2 % (36.0-45.0)
[2023-08-16] MEDS: HYDROMORPHONE HCL 0.5 MG/0.5 ML INJ IV PRN ×7 (01:36→21:46)
[2023-08-16] MEDS: PIPER TAZO 3.375 GM in NA CHLORIDE 0.9% 100 ML IV SCH ×3 (01:55→18:29)
[2023-08-16] MEDS: NA CHLORIDE 0.9% 1,000 ML IV SCH ×2 (05:00→15:00)
[2023-08-16 06:17] LABS: Hematocrit 27.3 % (36.0-45.0); MCV 82.9 fL (80-100); MPV 8.1 fL (7.6-11.3); Platelets 297 thou/uL (152-406)
[2023-08-16 06:35] LABS: ALT/SGPT < 10 U/L (13-56); AST/SGOT 13 U/L (15-37); Albumin 1.4 g/dL (3.4-5.0); Alkaline Phosphatase 80 U/L (45-117); BUN Blood Urea Nitrogen < 3 mg/dL (7-18); Bicarbonate 33 mEq/L (21-32); Bilirubin Total 0.1 mg/dL (0.2-1.0); Glomerular Filtration Rate 126 ml/min (=/>90); Potassium 3.5 mEq/L (3.5-5.1); Protein, Total 5.3 g/dL (6.4-8.2); Sodium Level 138 mEq/L (136-145)
[2023-08-16 06:36] LABS: Glucose Level 569 mg/dL (74-106)
[2023-08-16] MEDS: Mupirocin NASAL 2 APPL/1 GM TUBE NAS SCH ×2 (09:05→20:48)
[2023-08-16] MEDS: NICOTINE 21 MG/PAT TD SCH (09:05)
[2023-08-16] MEDS: INSULIN GLARGINE 100 UNIT/ML SQ SCH (09:06)
[2023-08-16] MEDS: PANTOPRAZOLE 40 MG INJ IVP SCH ×3 (09:21→20:49)
[2023-08-16] MEDS: HYDROCODONE/APAP 5/325 MG TAB PO PRN ×2 (11:25→20:46)
[2023-08-16 12:11] LABS: Phosphorus 2.7 mg/dL (2.5-4.9)
--- NOTE | 2023-08-16 14:08 | P.PN ---
Subjective Date of Service: 08/16/23 Primary Care Provider: oLs Buck Chief Complaint: Perforated gastric ulcer Patient is tolerating clear liquid diet. NG tube removed yesterday. Patient asking for her diet to be advanced. Pain is well controlled She is maintained on 4 L of oxygen by nasal cannula. Physical Examination - Vital Signs Temperature: 97.2 F Blood Pressure: 119/83 Pulse: 98 Respirations: 16 Pulse Ox (%): 96 Assessment And Plan - Plan Physical exam General: Alert, Oriented x3, NAD. Cachectic. Respiratory: B/L crackles on auscultation, bilateral diminished breath sounds. Cardiovascular: Heart rate regular, no edema GI: Abdomen non-distended, dressing dry and intact, binder in place. Musculoskeletal: No clubbing, No swelling Vitals reviewed Problem List S/P Exploratoy laparotomy for repair of Gastric Prforation-08/10/2023 Abdominal pain Acute respiratory failure secondary to pneumonia Microcytic anemia Acute kidney injury GERD Tobacco use S/P Exploratoy Laparotomy for repair of Gastric Perforation-08/10/2023 * Acute, status post exploratory lap. * Pain management with opioids as needed. * NG tube removed * Advance diet as tolerated per Dr. Worthington * Continue ABX until oral intake improves. * Wean TPN. * Continue IV Protonix twice daily. * General surgery Dr. Worthington input appreciated. Dr. Worthington recommended to discharge patient once she tolerate diet advancement. * Increase activity as tolerated. Acute hypoxic respiratory failure secondary to pneumonia Sepsis without shock secondary to pneumonia * Acute. * Bronchoscopy done 08/07/2023- Micro results with presumptive sulema albicans on fluconzaole * Currently on nebs, Levaquin , Solu-Medrol, as needed analgesics, antiemetics. * Leukocytosis is trending up. Patient has been afebrile. * Check procalcitonin and continue to monitor CBC * Continue Diflucan. * Wean oxygen as tolerated * Arrange for home oxygen. Macrocytic anemia/acute blood loss anemia * Monitor CBC, on IV iron. * Transfuse 1 more unit PRBC given significant hypoxia. Tobacco use * Nicotine patch * Smoking cessation recommended. VTE: SCDs. Code: Full
[2023-08-16] MEDS: AA 5%/D20W/ELECTROLYTES-TPN 2,000 ML, Lipids 20% 250 ML with MULTIVITAMINS INJ 10 ML IV SCH ×3 (18:30)
[2023-08-16] MEDS: FLUCONAZOLE 400 MG IVPB 400 MG/200 ML BAG IV SCH (20:58)
[2023-08-16] MEDS: ENSURE HIGH PROTEIN 237 ML CAN PO SCH (20:59)
[2023-08-16] MEDS: LORazepam 2 MG/ML VIAL IV PRN (21:47)
[2023-08-17] MEDS: HYDROMORPHONE HCL 0.5 MG/0.5 ML INJ IV PRN ×8 (00:12→21:27)
[2023-08-17] MEDS: NA CHLORIDE 0.9% 1,000 ML IV SCH ×2 (01:00→11:00)
[2023-08-17] MEDS: PIPER TAZO 3.375 GM in NA CHLORIDE 0.9% 100 ML IV SCH ×3 (02:25→18:08)
[2023-08-17] MEDS: HYDROCODONE/APAP 5/325 MG TAB PO PRN ×2 (02:41→09:19)
[2023-08-17] MEDS: INSULIN GLARGINE 100 UNIT/ML SQ SCH (09:00)
[2023-08-17] MEDS: ENSURE HIGH PROTEIN 237 ML CAN PO SCH ×2 (09:00→21:22)
[2023-08-17] MEDS: NICOTINE 21 MG/PAT TD SCH (09:21)
[2023-08-17] MEDS: PANTOPRAZOLE 40 MG INJ IVP SCH ×2 (09:21→21:21)
--- NOTE | 2023-08-17 12:46 | P.PN ---
Subjective Date of Service: 08/17/23 Primary Care Provider: Los Buck Chief Complaint: Perforated gastric ulcer Patient has no new complaint. She is tolerating diet. She is maintained on 4 L of oxygen by nasal cannula. Physical Examination - Vital Signs Temperature: 98.6 F Blood Pressure: 131/85 Pulse: 121 Respirations: 17 Pulse Ox (%): 97 Assessment And Plan - Plan Physical exam General: Alert, Oriented x3, NAD. Cachectic. Respiratory: B/L crackles on auscultation, bilateral diminished breath sounds. Cardiovascular: Heart rate regular, no edema GI: Abdomen non-distended, dressing dry and intact, binder in place. Musculoskeletal: No clubbing, No swelling Vitals reviewed Problem List S/P Exploratoy laparotomy for repair of Gastric Prforation-08/10/2023 Abdominal pain Acute respiratory failure secondary to pneumonia Microcytic anemia Acute kidney injury GERD Tobacco use Severe protein calorie malnutrition S/P Exploratoy Laparotomy for repair of Gastric Perforation-08/10/2023 * Acute, status post exploratory lap. * Pain management with opioids as needed. * NG tube removed * Advance diet as tolerated per Dr. Worthington. Patient is tolerating diet * Continue ABX. * Wean TPN and discontinue. * Continue IV Protonix twice daily. * General surgery Dr. Worthington input appreciated. Dr. Worthington recommended to discharge patient once she tolerate diet advancement. * Increase activity as tolerated. Acute hypoxic respiratory failure secondary to pneumonia/interstitial lung disease Sepsis without shock secondary to pneumonia * Acute. * Bronchoscopy done 08/07/2023- Micro results with presumptive sulema albicans on fluconzaole * Currently on nebs, Levaquin , Solu-Medrol, as needed analgesics, antiemetics. * Leukocytosis is trending up. Patient has been afebrile. * Check procalcitonin and continue to monitor CBC * Continue Diflucan. * Wean oxygen as tolerated * Awaiting for home oxygen to be arranged for discharge. Macrocytic anemia/acute blood loss anemia * Monitor CBC, on IV iron. * Status post 1 unit PRBC transfusion Tobacco use * Nicotine patch * Smoking cessation recommended. VTE: SCDs. Code: Full
[2023-08-17 13:57] LABS: AST/SGOT 11 U/L (15-37); Albumin 1.4 g/dL (3.4-5.0); Alkaline Phosphatase 95 U/L (45-117); BUN Blood Urea Nitrogen 5 mg/dL (7-18); Bicarbonate 35 mEq/L (21-32); Bilirubin Total 0.1 mg/dL (0.2-1.0); Glomerular Filtration Rate 134 ml/min (=/>90); Glucose Level 165 mg/dL (74-106); Protein, Total 5.9 g/dL (6.4-8.2); Sodium Level 141 mEq/L (136-145)
[2023-08-17 13:58] LABS: ALT/SGPT < 10 U/L (13-56)
[2023-08-17 14:03] LABS: Potassium 2.6 mEq/L (3.5-5.1)
[2023-08-17] MEDS: KCL 20 MEQ/100 mL IVPB 20 MEQ/100 ML BAG IV SCH ×3 (15:21→19:14)
[2023-08-17] MEDS: HYDROCODONE/APAP 7.5/325 MG TAB PO PRN ×2 (15:33→22:22)
[2023-08-17 16:13] LABS: Absolute Lymphocytes (CBC) 1.5 K/uL (0.7-4.9); Hematocrit 26.1 % (36.0-45.0); Lymphocytes % 9.5 % (15.3-44.8); MCV 81.4 fL (80-100); MPV 7.9 fL (7.6-11.3); Platelets 344 thou/uL (152-406); RBC Red Blood Cell Count 3.21 M/uL (3.86-4.86)
[2023-08-17] MEDS: AA 5%/D20W/ELECTROLYTES-TPN 2,000 ML IV SCH (16:45)
[2023-08-17] MEDS: FLUCONAZOLE 400 MG IVPB 400 MG/200 ML BAG IV SCH (21:22)
[2023-08-18] MEDS: NA CHLORIDE 0.9% 1,000 ML IV SCH ×2 (00:21→07:00)
[2023-08-18] MEDS: HYDROMORPHONE HCL 0.5 MG/0.5 ML INJ IV PRN ×8 (00:22→20:29)
[2023-08-18] MEDS: PIPER TAZO 3.375 GM in NA CHLORIDE 0.9% 100 ML IV SCH ×3 (00:22→16:43)
[2023-08-18] MEDS: HYDROCODONE/APAP 7.5/325 MG TAB PO PRN ×4 (02:13→18:43)
[2023-08-18 06:29] LABS: AST/SGOT 14 U/L (15-37); Albumin 1.3 g/dL (3.4-5.0); Alkaline Phosphatase 94 U/L (45-117); BUN Blood Urea Nitrogen 5 mg/dL (7-18); Bicarbonate 32 mEq/L (21-32); Bilirubin Total 0.1 mg/dL (0.2-1.0); Glomerular Filtration Rate 144 ml/min (=/>90); Glucose Level 82 mg/dL (74-106); Protein, Total 5.6 g/dL (6.4-8.2); Sodium Level 143 mEq/L (136-145)
[2023-08-18 06:30] LABS: ALT/SGPT < 10 U/L (13-56)
[2023-08-18 06:35] LABS: Potassium 2.6 mEq/L (3.5-5.1)
[2023-08-18] MEDS ORDERED: KCL 20 MEQ/100 mL IVPB 20 MEQ/100 ML BAG IV ONE (07:30)
[2023-08-18] MEDS: NICOTINE 21 MG/PAT TD SCH (08:03)
[2023-08-18] MEDS: ENSURE HIGH PROTEIN 237 ML CAN PO SCH ×2 (08:03→20:40)
[2023-08-18] MEDS: PANTOPRAZOLE 40 MG INJ IVP SCH ×2 (08:07→20:29)
[2023-08-18] MEDS: INSULIN GLARGINE 100 UNIT/ML SQ SCH ×2 (08:09→08:15)
[2023-08-18] MEDS ORDERED: POTASSIUM CL SA 10 MEQ TAB PO ONE (09:00)
--- NOTE | 2023-08-18 13:05 | P.PN ---
Subjective Date of Service: 08/18/23 Primary Care Provider: Los Buck Chief Complaint: Perforated gastric ulcer Patient has no new complaint. She is tolerating full liquid diet She is also stable on 4 L of oxygen by nasal cannula. Physical Examination - Vital Signs Temperature: 98.5 F Blood Pressure: 119/80 Pulse: 115 Respirations: 16 Pulse Ox (%): 94 Assessment And Plan - Plan Physical exam General: Alert, Oriented x3, NAD. Cachectic. Respiratory: B/L crackles on auscultation, bilateral diminished breath sounds. Cardiovascular: Heart rate regular, no edema GI: Abdomen non-distended, dressing dry and intact, binder in place. Musculoskeletal: No clubbing, No swelling Vitals reviewed Problem List S/P Exploratoy laparotomy for repair of Gastric Prforation-08/10/2023 Abdominal pain Acute respiratory failure secondary to pneumonia Microcytic anemia Acute kidney injury GERD Tobacco use Severe protein calorie malnutrition S/P Exploratoy Laparotomy for repair of Gastric Perforation-08/10/2023 * Status post exploratory lap. * Pain management with opioids as needed. * NG tube removed * Advance diet as tolerated per Dr. Worthington. Patient is tolerating full liquid diet. Advance to soft diet. * Continue ABX. * Off TPN. * Continue IV Protonix twice daily. Transition to oral Protonix on discharge * General surgery Dr. Worthington input appreciated. Dr. Worthington recommended to discharge patient once she tolerate diet advancement. * Increase activity as tolerated. * Monitor and correct electrolytes. Acute hypoxic respiratory failure secondary to pneumonia/interstitial lung disease Sepsis without shock secondary to pneumonia * Acute. * Bronchoscopy done 08/07/2023- Micro results with presumptive sulema albicans on fluconzaole * Currently on nebs, Levaquin , Solu-Medrol, as needed analgesics, antiemetics. * Leukocytosis is trending up. Patient has been afebrile. * Check procalcitonin and continue to monitor CBC * Continue Diflucan. * Will transition IV Zosyn to oral Augmentin. * Wean oxygen as tolerated * Home oxygen has been arranged. Macrocytic anemia/acute blood loss anemia * Monitor CBC. * Patient completed IV iron. * Status post 1 unit PRBC transfusion Tobacco use * Nicotine patch * Smoking cessation recommended. VTE: SCDs. Code: Full
[2023-08-18] MEDS: CALCIUM GLUCONATE 1 GM IVPB 1 GM/50 ML BAG IV SCH ×2 (13:07→14:27)
[2023-08-18] MEDS: LORazepam 2 MG/ML VIAL IV PRN (20:30)
[2023-08-18] MEDS: FLUCONAZOLE 400 MG IVPB 400 MG/200 ML BAG IV SCH (20:30)
[2023-08-19] MEDS: PIPER TAZO 3.375 GM in NA CHLORIDE 0.9% 100 ML IV SCH (00:49)
[2023-08-19] MEDS: HYDROMORPHONE HCL 0.5 MG/0.5 ML INJ IV PRN ×6 (03:46→21:34)
[2023-08-19] MEDS: HYDROCODONE/APAP 7.5/325 MG TAB PO PRN ×4 (05:20→22:43)
[2023-08-19 06:17] LABS: Absolute Lymphocytes (CBC) 1.4 K/uL (0.7-4.9); Hematocrit 24.1 % (36.0-45.0); Lymphocytes % 15.1 % (15.3-44.8); MCV 80.6 fL (80-100); MPV 7.7 fL (7.6-11.3); Platelets 391 thou/uL (152-406)
[2023-08-19 06:35] LABS: Potassium 2.7 mEq/L (3.5-5.1)
[2023-08-19] MEDS: NICOTINE 21 MG/PAT TD SCH (08:27)
[2023-08-19] MEDS: PANTOPRAZOLE 40 MG INJ IVP SCH (08:28)
[2023-08-19] MEDS: KCL 20 MEQ/100 mL IVPB 20 MEQ/100 ML BAG IV SCH ×3 (08:30→12:40)
[2023-08-19] MEDS: INSULIN GLARGINE 100 UNIT/ML SQ SCH ×2 (08:30→08:50)
[2023-08-19] MEDS: ENSURE HIGH PROTEIN 237 ML CAN PO SCH ×2 (08:31→21:00)
--- NOTE | 2023-08-19 08:31 | P.PN ---
Subjective Date of Service: 08/19/23 Primary Care Provider: Los Buck Chief Complaint: Respiratory failure s/p perforated gastric ulcer Patient is 42 years of age doing much better she is just started eating it is post repair of perforated gastric ulcer shortness of breath has improved Review of Systems General: Weakness Respiratory: Shortness of Breath Physical Examination - Vital Signs Temperature: 97.9 F Blood Pressure: 120/84 Pulse: 113 Respirations: 16 Pulse Ox (%): 92 - Physical Exam General: Alert, Oriented x3 Respiratory: Clear to auscultation bilaterally, Diminished Cardiovascular: No edema, Normal pulses, Regular rate/rhythm Assessment And Plan - Current Problems (Diagnosis) (1) Community acquired bilateral lower lobe pneumonia Current Visit: No Status: Acute Plan: Patient admitted with bilateral pneumonia doing much better bronchoscopy was nondiagnostic repeat chest x-ray oxygen requirements are satisfactory bronchoalveolar lavage shows [place] albicans most likely contaminant (2) Iron deficiency anemia Current Visit: Yes Status: Acute Plan: Patient has mild anemia Qualifiers: Iron deficiency anemia type: unspecified iron deficiency Qualified Code(s): D50.9 - Iron deficiency anemia, unspecified (3) Perforated gastric ulcer Current Visit: Yes Status: Acute Plan: Doing much better to p.o. pantoprazole DC IV antibiotic his white count is normal ambulate discharge planning Qualifiers: Gastric ulcer chronicity: acute Qualified Code(s): K25.1 - Acute gastric ulcer with perforation Physician Review: Patient Assessed, Agree with Above Assessment and Plan
--- NOTE | 2023-08-19 16:40 | P.DS ---
Admission Date: 08/04/23 Discharge Date: 08/19/23 Primary Care Provider: Los Buck Disposition: DC HOME/HOME HEALTH CARE Discharge Condition: FAIR Reason for Admission: Respiratory failure s/p perforated gastric ulcer Brief History of Present Illness: 42-year-old female with a past history of hypertension, GERD, pneumonia, tobacco use presented to the emergency room with shortness of breath. She reports associated productive cough, congestion. She reported pain with coughing, 9 out of 10. She has been admitted 3 times in the last year with pneumonia. She denied chest pain, nausea vomiting fever diarrhea chills. 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 Patient was placed on BiPAP, treated with Rocephin, azithromycin, albuterol. She was admitted for further management. Hospital Course: Diagnosis S/P Exploratoy laparotomy for repair of Gastric Prforation-08/10/2023 Abdominal pain Acute respiratory failure secondary to pneumonia Microcytic anemia Acute kidney injury GERD Tobacco use Severe protein calorie malnutrition S/P Exploratoy Laparotomy for repair of Gastric Perforation-08/10/2023 * Patient developed abdominal pain, CT abdomen and pelvis was concerning for bowel perforation. * Patient seen by general surgery Dr. Worthington. Status post exploratory lap. * Pain management with opioids as needed. * NG tube removed after several days * Patient is tolerated diet advancement to solid consistency * Patient treated with aggressive antibiotics. She was also on TPN for several days * She was placed on Protonix drip and later transitioned to IV Protonix, then oral Protonix. * General surgery Dr. Worthington input appreciated. Dr. Worthington recommended to discharge patient once she tolerate diet advancement. * Patient was ambulatory for short distances. Acute hypoxic respiratory failure secondary to pneumonia/interstitial lung disease Sepsis without shock secondary to pneumonia * Acute. * Bronchoscopy done 08/07/2023- Micro results with presumptive sulema albicans on fluconzaole * Patient treated with nebs, Levaquin , Solu-Medrol, as needed analgesics, ant iemetics. * She was treated with Diflucan. Pulmonary Dr. Walker suspected Sulema albicans isolated most likely a contaminant. She completed several days of IV Diflucan which was later discontinued. * He was on several days of IV Zosyn which was transitioned to oral Augmentin. * Patient tolerated 4 L oxygen by nasal cannula. * Home oxygen has been arranged. Macrocytic anemia/acute blood loss anemia * Patient completed IV iron. * Status post 1 unit PRBC transfusion Tobacco use * Managed with nicotine patch * Smoking cessation recommended. Vital Signs/Physical Exam: Temp Pulse Resp BP Pulse Ox 97.9 F 113 H 16 120/84 92 08/19/23 08:32 08/19/23 08:32 08/19/23 16:25 08/19/23 08:32 08/19/23 16:25 General: Alert, In no apparent distress, Oriented x3, Cachectic HEENT: Mucous membr. moist/pink Neck: JVD not distended Respiratory: Crackles/rales (Bilateral) Cardiovascular: No edema, Normal pulses, Regular rate/rhythm Gastrointestinal: Soft and benign, Non-distended Musculoskeletal: No swelling Integumentary: No cyanosis, Rash(es) (Diffuse and involves patient's scalp-lik miya dermatitis.) Neurological: Normal strength at 5/5 x4 extr Laboratory Data at Discharge: WBC 9.30 thou/uL (4.3-10.9) 08/19/23 06:00 Hgb 7.6 g/dL (12.0-15.0) L 08/19/23 06:00 Hct 24.1 % (36.0-45.0) L 08/19/23 06:00 Plt Count 391 thou/uL (152-406) 08/19/23 06:00 PT 11.1 SECONDS (9.5-12.5) 08/09/23 06:03 INR 1.01 08/09/23 06:03 APTT 22.3 SECONDS (24.3-36.9) L 08/04/23 20:50 Sodium 145 mEq/L (136-145) 08/19/23 06:00 Potassium Cancelled 08/19/23 16:00 BUN 5 mg/dL (7-18) L 08/19/23 06:00 Creatinine 0.21 mg/dL (0.55-1.02) L 08/19/23 06:00 Glucose 77 mg/dL (74-106) 08/19/23 06:00 Phosphorus Cancelled 08/16/23 11:47 Magnesium 2.0 mg/dL (1.6-2.4) 08/15/23 10:00 Total Bilirubin 0.1 mg/dL (0.2-1.0) L 08/18/23 05:54 AST 14 U/L (15-37) L 08/18/23 05:54 ALT < 10 U/L (13-56) L 08/18/23 05:54 Alkaline Phosphatase 94 U/L (45-117) 08/18/23 05:54 Home Medications: ALPRAZolam [Xanax*] 0.5 mg PO TID PRN #30 tab 03/11/23 Iron Polysaccharide Complex [Polysaccharide Iron] 150 mg PO DAILY #30 cap 06/10/23 Albuterol Inhaler [Ventolin Inhaler*] 2 puff IH DAILY PRN 08/05/23 Amox/Clavulanate [Augmentin 875-125 Tab] 875 mg PO BID #14 tab 08/19/23 Ensure High Protein 237 ml PO BID #30 can 08/19/23 Hydrocodone 10/APAP 325 [[place] 10/325*] 1 tab PO Q4H PRN #12 tab 08/19/23 Ipratropium/Albuterol Sulfate [Iprat-Albut 0.5-3(2.5) mg/3 ml] 3 ml IH QID #120 amp 08/19/23 Nicotine [Nicoderm*] 21 mg TD DAILY #30 patch 08/19/23 Pantoprazole [Protonix Tab*] 40 mg PO BIDAC #60 tab 08/19/23 Potassium Chloride 40 meq PO DAILY #10 packet 08/19/23 New Medications: Amox/Clavulanate [Augmentin 875-125 Tab] 875 mg PO BID #14 tab Ensure High Protein 237 ml PO BID #30 can Ipratropium/Albuterol Sulfate [Iprat-Albut 0.5-3(2.5) mg/3 ml] 3 ml IH QID #120 amp Nicotine [Nicoderm*] 21 mg TD DAILY #30 patch Hydrocodone 10/APAP 325 [[place] 10/325*] 1 tab PO Q4H PRN #12 tab PRN Reason: Pain Scale 5-7 (Moderate) Potassium Chloride 40 meq PO DAILY #10 packet Pantoprazole [Protonix Tab*] 40 mg PO BIDAC #60 tab Diet: AHA Activity: Fall precautions Followup: Kyle Walker MD [ACTIVE - CAN ADMIT] - 1-2 Weeks Time spent managing pt's care (in minutes): 40
[2023-08-19] MEDS: PANTOPRAZOLE 40MG TABLET PO SCH (18:12)
--- NOTE | 2023-08-19 18:42 | P.PN ---
Subjective Date of Service: 08/19/23 Primary Care Provider: Los Buck Chief Complaint: Respiratory failure s/p perforated gastric ulcer Patient has no new complaint. She is tolerating full liquid diet She is also stable on 4 L of oxygen by nasal cannula. Patient potassium level has been low. Physical Examination - Vital Signs Temperature: 97.9 F Blood Pressure: 120/84 Pulse: 113 Respirations: 16 Pulse Ox (%): 92 Assessment And Plan - Plan Physical exam General: Alert, Oriented x3, NAD. Cachectic. Respiratory: B/L crackles on auscultation, bilateral diminished breath sounds. Cardiovascular: Heart rate regular, no edema GI: Abdomen non-distended, dressing dry and intact, binder in place. Musculoskeletal: No clubbing, No swelling Vitals reviewed Problem List S/P Exploratoy laparotomy for repair of Gastric Prforation-08/10/2023 Abdominal pain Acute respiratory failure secondary to pneumonia Microcytic anemia Acute kidney injury GERD Tobacco use Severe protein calorie malnutrition S/P Exploratoy Laparotomy for repair of Gastric Perforation-08/10/2023 * Status post exploratory lap. * Pain management with opioids as needed. * NG tube removed * Advance diet as tolerated per Dr. Worthington. Patient is tolerating full liquid diet. Advance to soft diet. * Continue ABX. * Off TPN. * Continue IV Protonix twice daily. Transition to oral Protonix on discharge * General surgery Dr. Worthington input appreciated. Dr. Worthington recommended to discharge patient once she tolerate diet advancement. * Increase activity as tolerated. * Monitor and correct electrolytes. * Low potassium level which keeps trending down despite correction. I suspect significant potassium deficit * Continue to replace potassium. Monitor and optimize magnesium and phosphorus levels. Acute hypoxic respiratory failure secondary to pneumonia/interstitial lung disease Sepsis without shock secondary to pneumonia * Acute. * Bronchoscopy done 08/07/2023- Micro results with presumptive sulema albicans on fluconzaole * Currently on nebs, Levaquin , Solu-Medrol, as needed analgesics, antiemetics. * Leukocytosis trended down and resolved. Patient has been afebrile. * Pulmonary Dr. Walker discontinued antibiotic * Wean oxygen as tolerated * Home oxygen has been arranged. Macrocytic anemia/acute blood loss anemia * Monitor CBC. * Patient completed IV iron. * Status post 1 unit PRBC transfusion Tobacco use * Nicotine patch * Smoking cessation recommended. VTE: SCDs. Code: Full
[2023-08-19] MEDS ORDERED: POTASSIUM CL SA 10 MEQ TAB PO ONE (21:00)
[2023-08-19 21:20] LABS: Phosphorus 2.3 mg/dL (2.5-4.9)
[2023-08-19] MEDS: LORazepam 2 MG/ML VIAL IV PRN (22:43)
[2023-08-20] MEDS: HYDROMORPHONE HCL 0.5 MG/0.5 ML INJ IV PRN ×6 (05:10→21:14)
[2023-08-20 06:58] LABS: Absolute Lymphocytes (CBC) 1.1 K/uL (0.7-4.9); Lymphocytes % 15.1 % (15.3-44.8); MCV 82.4 fL (80-100); MPV 8.3 fL (7.6-11.3); Platelets 392 thou/uL (152-406); RBC Red Blood Cell Count 2.67 M/uL (3.86-4.86)
[2023-08-20 07:15] LABS: Potassium 3.5 mEq/L (3.5-5.1)
[2023-08-20] MEDS: NICOTINE 21 MG/PAT TD SCH (08:39)
[2023-08-20] MEDS: PANTOPRAZOLE 40MG TABLET PO SCH ×2 (08:39→15:45)
[2023-08-20] MEDS: INSULIN GLARGINE 100 UNIT/ML SQ SCH (09:00)
[2023-08-20] MEDS: ENSURE HIGH PROTEIN 237 ML CAN PO SCH ×2 (09:00→20:09)
[2023-08-20 09:31] LABS: Hematocrit 28.1 % (36.0-45.0); MCV 81.7 fL (80-100); MPV 8.1 fL (7.6-11.3); Platelets 494 thou/uL (152-406); RBC Red Blood Cell Count 3.44 M/uL (3.86-4.86)
[2023-08-20] MEDS: HYDROCODONE/APAP 7.5/325 MG TAB PO PRN ×3 (11:12→22:47)
--- NOTE | 2023-08-20 12:03 | P.PN ---
Date of Service: 08/20/23 Subjective: Doing okay no new / worsening problems abdomen feels sore; no obvious bleeds seen appetite okay; +drinking ensures given ativan last night for anxiety h/h down this morning, +Tachycardia ROS: 10 point ROS as noted above, otherwise negative Physical Exam: GEN: Alert, oriented, NAD, Cachectic. HEENT: Normal conjunctiva, sclera anicteric CV: Sinus Tachycardia, no edema Pulm: Nonlabored respirations on 2.5L NC, mild b/l crackles, diminished at bases b/l ABD: Soft, nontender, dressing in place c/d/i Neuro: Normal speech, normal affect vitals reviewed Problem List: Perforated Gastric ulcer s/p Ex Lap with stacie patch repair of Gastric Perforation (08/10) Iron deficiency anemia/acute blood loss anemia Acute hypoxic respiratory failure secondary to pneumonia/interstitial lung disease DEBORAH, resolved GERD Tobacco use Severe protein calorie malnutrition Perforated Gastric ulcer s/p Ex Lap with stacie patch repair of Gastric Perforation (08/10) Iron deficiency anemia/acute blood loss anemia General surgery consulted - Dr. collins s/p Ex Lap with stacie patch repair of Gastric Perforation (08/10) PRN pain medication - wean IV as tolerated ; pt with h/o chronic pain Tolerating soft foods Continue PO Protonix BID Iron studies 08/07 consistent with iron deficiency anemia Patient received IV iron and 1uPRBC this hospitalization Continue to monitor hgb; transfuse for hgb < 7. hgb 7.6 -> 6.7 -> recheck ordered (08/20) do not suspect active bleed, but at high risk recheck h/h this morning Acute hypoxic respiratory failure secondary to pneumonia/interstitial lung disease Sepsis without shock secondary to pneumonia pulm consulted s/p Bronchoscopy (08/07/2023) - Micro results with presumptive sulema albicans sulema likely contaminant per Dr. Walker; received ~5 days of IV fluconzaole (08/14-08/19) Leukocytosis trended down and resolved. Patient has been afebrile. received several days of IV zosyn dc'd (08/19) Wean oxygen as tolerated Home oxygen has been arranged; delivered (08/17/23). GERD. Continue protonix Tobacco use. Counselled on smoking cessation. Placed on nicoderm patch VTE: SCD Code: Full Dispo: home with HH, anticipate tomorrow Pending further improvement, hgb stabilizes
[2023-08-20] MEDS ORDERED: MAGNESIUM SULFATE 1 gm IVPB 1 GM/100 ML BAG IV ONE (18:43)
[2023-08-20] MEDS ORDERED: POTASSIUM CL SA 10 MEQ TAB PO ONE (18:51)
[2023-08-20] MEDS: LORazepam 2 MG/ML VIAL IV PRN (23:13)
[2023-08-21] MEDS: HYDROMORPHONE HCL 0.5 MG/0.5 ML INJ IV PRN ×2 (00:17→03:41)
[2023-08-21 05:44] LABS: Absolute Lymphocytes (CBC) 1.6 K/uL (0.7-4.9); Hematocrit 24.2 % (36.0-45.0); Lymphocytes % 19.8 % (15.3-44.8); MCV 81.5 fL (80-100); MPV 7.8 fL (7.6-11.3); Platelets 495 thou/uL (152-406); RBC Red Blood Cell Count 2.97 M/uL (3.86-4.86)
[2023-08-21 05:54] LABS: Magnesium 2.2 mg/dL (1.6-2.4); Potassium 3.8 mEq/L (3.5-5.1)
[2023-08-21 06:54] LABS: Anisocytosis 1+; Blood Morphology Comment NOTED (NOT SEEN); Platelet Estimate ADEQ
[2023-08-21] MEDS: ENSURE HIGH PROTEIN 237 ML CAN PO SCH ×2 (09:00→20:32)
[2023-08-21] MEDS: INSULIN GLARGINE 100 UNIT/ML SQ SCH (09:00)
[2023-08-21] MEDS ORDERED: NA CHLORIDE 0.9% 250 ML IV SCH (09:00)
[2023-08-21] MEDS ORDERED: POTASSIUM CL SA 10 MEQ TAB PO ONE (09:00)
--- NOTE | 2023-08-21 09:02 | P.PN ---
Date of Service: 08/21/23 Subjective: hgb 7.6 today; 1 uPRBC ordered tachycardia, denies bleeding breathing slowly improving; down to 2L NC afebrile ROS: 10 point ROS as noted above, otherwise negative Physical Exam: GEN: Alert, oriented, NAD, Cachectic. HEENT: Normal conjunctiva, sclera anicteric CV: Sinus Tachycardia, no edema Pulm: Nonlabored respirations on 2L NC, mild b/l crackles, diminished at bases b/l ABD: Soft, nontender, dressing in place c/d/i Neuro: Normal speech, normal affect vitals reviewed Problem List: Perforated Gastric ulcer s/p Ex Lap with stacie patch repair of Gastric Perforation (08/10) Iron deficiency anemia/acute blood loss anemia Acute hypoxic respiratory failure secondary to pneumonia/interstitial lung disease Sepsis without shock secondary to pneumonia DEBORAH, resolved GERD Tobacco use Severe protein calorie malnutrition Perforated Gastric ulcer s/p Ex Lap with stacie patch repair of Gastric Perforation (08/10) Iron deficiency anemia/acute blood loss anemia General surgery consulted - Dr. collins s/p Ex Lap with stacie patch repair of Gastric Perforation (08/10) PRN pain medication - PO norco increased 08/21; IV dilaudid dc'd; pt with h/o chronic pain Tolerating soft foods Continue PO Protonix BID Iron studies 08/07 consistent with iron deficiency anemia Patient received IV iron (08/08-08/15) and s/p 1uPRBC (08/14) Continue to monitor hgb; transfuse for hgb < 7. hgb 6.7 -> 8.8 -> 7.6 (08/21) do not suspect active bleed, but at high risk 1 uPRBC ordered 08/21 Acute hypoxic respiratory failure secondary to pneumonia/interstitial lung disease Sepsis without shock secondary to pneumonia pulm consulted s/p Bronchoscopy (08/07/2023) - Micro results with presumptive sulema albicans sulema likely contaminant per Dr. Walker; received ~5 days of IV fluconzaole (08/14-08/19) Leukocytosis trended down and resolved. Patient has been afebrile. received several days of IV zosyn dc'd (08/19) Wean oxygen as tolerated Home oxygen has been arranged; delivered (08/17/23). GERD. Continue protonix Tobacco use. Counselled on smoking cessation. Placed on nicoderm patch VTE: SCD Code: Full Dispo: home with HH, anticipate tomorrow Pending further improvement, hgb stabilizes
[2023-08-21] MEDS: NICOTINE 21 MG/PAT TD SCH (09:37)
[2023-08-21] MEDS: HYDROCODONE/APAP 10/325 TAB PO PRN ×4 (09:38→23:22)
[2023-08-21] MEDS: PANTOPRAZOLE 40MG TABLET PO SCH ×2 (09:38→17:23)
[2023-08-21 20:54] LABS: Hematocrit 27.4 % (36.0-45.0)
[2023-08-21] MEDS: LORazepam 2 MG/ML VIAL IV PRN (23:23)
[2023-08-22 01:08] VITALS: O2SAT 93
[2023-08-22] MEDS: HYDROCODONE/APAP 10/325 TAB PO PRN ×2 (05:28→10:25)
[2023-08-22 05:46] LABS: MCV 81.6 fL (80-100); MPV 7.2 fL (7.6-11.3); Platelets 534 thou/uL (152-406); RBC Red Blood Cell Count 3.56 M/uL (3.86-4.86)
[2023-08-22 06:06] LABS: Potassium 3.4 mEq/L (3.5-5.1)
--- NOTE | 2023-08-22 07:38 | P.DS ---
Admission Date: 08/04/23 Discharge Date: 08/22/23 Primary Care Provider: Los Buck Disposition: DC HOME/HOME HEALTH CARE Discharge Condition: FAIR Reason for Admission: Respiratory failure s/p perforated gastric ulcer Consultations: Pulmonology - Dr. Walker General Surgery - Dr. Worthington Brief History of Present Illness: 42yo F, PMH: hypertension, GERD, pneumonia, tobacco use Patient presents to the emergency room with shortness of breath. She reports associated productive cough, congestion that was worse today. She reports pain with coughing, 9 out of 10. She has been admitted 3 times in the last year with pneumonia. She denies chest pain, nausea vomiting fever diarrhea chills. Plan to admit for sepsis secondary to pneumonia, acute hypoxic respiratory failure, tobacco use. Patient is on BiPAP, treated with Rocephin, azithromycin, albuterol chest x-ray patchy bilateral airspace disease concerning for pneumonia, pneumonitis laboratory evaluation, vital signs blood pressure 94/73 pulse 135 respirations 24 temperature 98.7, 94% Laboratory evaluation WBCs 20.70, left shift 92.2, microcytic anemia 9.3, acute kidney injury BUN 20 creatinine 0.80 glucose 129 lactic normal at 2.0 transaminitis AST 51 ALT normal at 11 Hypoloc 2.6 UA pending 29.3,, troponin normal 6.3 BNP OUTPATIENT PSYCHIATRIST elevated at 985 Hospital Course: Problem List: Perforated Gastric ulcer s/p Ex Lap with stacie patch repair of Gastric Perforation (08/10) Iron deficiency anemia/acute blood loss anemia Acute hypoxic respiratory failure secondary to pneumonia/interstitial lung disease Sepsis without shock secondary to pneumonia DEBORAH, resolved GERD Tobacco use Severe protein calorie malnutrition Patient presented with shortness of breath, cough. CT chest findings concerning for multifocal pneumonia. Pulmonology was consulted. Patient underwent Bronchoscopy on 08/[address] Walker but after obtaining bronchoalveolar lavage she reportedly desaturated significantly and no other procedures were able to be performed. Patient was given empiric levaquin along with nebs, steroids and had improvement of her symptoms. Culture from bronchoscopy was noted to be growing presumptive sulema albicans. Dr. Walker felt it was a contamination. Patient received several days of fluconzaole as a precaution. Patient continued to improve throughout hospitalization and was weaned down from BiPAP/hiflow to ~2-2.5L NC. Patient was feeling better, breathing improved, and deemed stable for discharge home with home oxygen setup. No further antibiotics required per Dr. Walker During her hospitalization, hgb was noted to be downtrending. CT abdomen (08/10) with findings concerning for perforated gastric ulcer with small volume of intraperitoneal free air. General surgery was consulted. Patient was taken to the OR for Ex Lap with stacie patch repair of Gastric Perforation on 08/[address] Worthington. She also received 2 uPRBC while hospitalized. Iron studies were consistent with iron deficiency anemia. Patient receieved ~8 bags of IV iron while hospitalized and recommend continue oral iron supplementation on discharge. Recommend repeat blood work within 1 week to monitor CBC. hgb on discharge: 9.2. Recommend repeat iron studies in a few months Medications: continue home meds as previously prescribed Albuterol Inhaler Protonix [place] short course was prescribed. Patient to follow up with PCP /pain clinic Potassium chloride Recommend tobacco cessation to avoid further risks. Nicoderm was prescribed as an alternative. Recommend drinking ensure to supplement food inta Daily over the counter iron tablets Follow up: PCP 3-5 days Pulmonology 1-[address] Worthington in 1-2 weeks call to make appointments Physical Exam: GEN: Alert, oriented, NAD, Cachectic. HEENT: Normal conjunctiva, sclera anicteric CV: Sinus Tachycardia, no edema Pulm: Nonlabored respirations on 2L NC, mild b/l crackles, diminished at bases b/l ABD: Soft, nontender, dressing in place c/d/i Neuro: Normal speech, normal affect Vital Signs/Physical Exam: Temp Pulse Resp BP Pulse Ox 97.8 F 112 H 18 138/92 H 95 08/22/23 04:00 08/22/23 04:00 08/22/23 05:28 08/22/23 04:00 08/22/23 05:28 Laboratory Data at Discharge: WBC 8.10 thou/uL (4.3-10.9) 08/22/23 05:35 Hgb 9.2 g/dL (12.0-15.0) L 08/22/23 05:35 Hct 29.0 % (36.0-45.0) L 08/22/23 05:35 Plt Count 534 thou/uL (152-406) H 08/22/23 05:35 PT 11.1 SECONDS (9.5-12.5) 08/09/23 06:03 INR 1.01 08/09/23 06:03 APTT 22.3 SECONDS (24.3-36.9) L 08/04/23 20:50 Sodium 143 mEq/L (136-145) 08/22/23 05:35 Potassium 3.4 mEq/L (3.5-5.1) L 08/22/23 05:35 BUN 4 mg/dL (7-18) L 08/22/23 05:35 Creatinine 0.37 mg/dL (0.55-1.02) L 08/22/23 05:35 Glucose 97 mg/dL (74-106) 08/22/23 05:35 Phosphorus 2.3 mg/dL (2.5-4.9) L 08/19/23 18:00 Magnesium 2.2 mg/dL (1.6-2.4) 08/21/23 05:18 Total Bilirubin 0.1 mg/dL (0.2-1.0) L 08/18/23 05:54 AST 14 U/L (15-37) L 08/18/23 05:54 ALT < 10 U/L (13-56) L 08/18/23 05:54 Alkaline Phosphatase 94 U/L (45-117) 08/18/23 05:54 Home Medications: ALPRAZolam [Xanax*] 0.5 mg PO TID PRN #30 tab 03/11/23 Iron Polysaccharide Complex [Polysaccharide Iron] 150 mg PO DAILY #30 cap 06/10/23 Albuterol Inhaler [Ventolin Inhaler*] 2 puff IH DAILY PRN 08/05/23 Ensure High Protein 237 ml PO BID #30 can 08/19/23 Hydrocodone 10/APAP 325 [[place] 10/325*] 1 tab PO Q4H PRN #12 tab 08/19/23 Ipratropium/Albuterol Sulfate [Iprat-Albut 0.5-3(2.5) mg/3 ml] 3 ml IH QID #120 amp 08/19/23 Nicotine [Nicoderm*] 21 mg TD DAILY #30 patch 08/19/23 Pantoprazole [Protonix Tab*] 40 mg PO BIDAC #60 tab 08/19/23 Potassium Chloride 40 meq PO DAILY #10 packet 08/19/23 New Medications: Ensure High Protein 237 ml PO BID #30 can Ipratropium/Albuterol Sulfate [Iprat-Albut 0.5-3(2.5) mg/3 ml] 3 ml IH QID #120 amp Nicotine [Nicoderm*] 21 mg TD DAILY #30 patch Hydrocodone 10/APAP 325 [[place] 10/325*] 1 tab PO Q4H PRN #12 tab PRN Reason: Pain Scale 5-7 (Moderate) Potassium Chloride 40 meq PO DAILY #10 packet Pantoprazole [Protonix Tab*] 40 mg PO BIDAC #60 tab Physician Discharge Instructions: Patient presented with shortness of breath, cough. CT chest findings concerning for multifocal pneumonia. Pulmonology was consulted. Patient underwent Bronchoscopy on 08/[address] Walker but after obtaining bronchoalveolar lavage she reportedly desaturated significantly and no other procedures were able to be performed. Patient was given empiric levaquin along with nebs, steroids and had improvement of her symptoms. Culture from bronchoscopy was noted to be growing presumptive sulema albicans. Dr. Walker felt it was a contamination. Patient received several days of fluconzaole as a precaution. Patient continued to improve throughout hospitalization and was weaned down from BiPAP/hiflow to ~2-2.5L NC. Patient was feeling better, breathing improved, and deemed stable for discharge home with home oxygen setup. No further antibiotics required per Dr. Walker During her hospitalization, hgb was noted to be downtrending. CT abdomen (08/10) with findings concerning for perforated gastric ulcer with small volume of intraperitoneal free air. General surgery was consulted. Patient was taken to the OR for Ex Lap with stacie patch repair of Gastric Perforation on 08/[address] Worthington. She also received 2 uPRBC while hospitalized. Iron studies were consistent with iron deficiency anemia. Patient receieved ~8 bags of IV iron while hospitalized and recommend continue oral iron supplementation on discharge. Recommend repeat blood work within 1 week to monitor CBC. hgb on discharge: 9.2. Recommend repeat iron studies in a few months Medications: continue home meds as previously prescribed Albuterol Inhaler Protonix [place] short course was prescribed. Patient to follow up with PCP /pain clinic Potassium chloride Recommend tobacco cessation to avoid further risks. Nicoderm was prescribed as an alternative. Recommend drinking ensure to supplement food inta Daily over the counter iron tablets Follow up: PCP 3-5 days Pulmonology 1-[address] Worthington in 1-2 weeks call to make appointments Diet: AHA Activity: Fall precautions Followup: Kyle Walker MD [ACTIVE - CAN ADMIT] - 1-2 Weeks Shahriar Worthington MD [ACTIVE - CAN ADMIT] - Time spent managing pt's care (in minutes): 45
[2023-08-22] MEDS: INSULIN GLARGINE 100 UNIT/ML SQ SCH (08:30)
[2023-08-22] MEDS: PANTOPRAZOLE 40MG TABLET PO SCH (08:30)
[2023-08-22] MEDS: ENSURE HIGH PROTEIN 237 ML CAN PO SCH (08:30)
[2023-08-22] MEDS: NICOTINE 21 MG/PAT TD SCH (08:42)
[2023-08-22 08:44] VITALS: BP 129/77; TEMP 97.3
[2023-08-22] MEDS ORDERED: POTASSIUM CL SA 10 MEQ TAB PO ONE (09:00)
== END 2023-08-22 11:08 | disposition home health service (06) | DRG 853 ==
LOC: ER 20:15 → ERHOLD 21:38 → 3RD-ICU 23:18 → 4TH 08-06 02:26 → 3RD-ICU 08-10 09:45 → 2ND 08-13 17:45
PROVIDERS: ADMIT Internal Medicine; ATTEND Hospitalist
PROC: 5A09557 Assistance with Respiratory Ventilation, Greater than 96 Consecutive Hours, Continuous Positive Airway Pressure (ICD-10-PCS; 2023-08-04)
PROC: 0B9C8ZX Drainage of Right Upper Lung Lobe, Via Natural or Artificial Opening Endoscopic, Diagnostic (ICD-10-PCS; 2023-08-08)
PROC: 0BD48ZX Extraction of Right Upper Lobe Bronchus, Via Natural or Artificial Opening Endoscopic, Diagnostic (ICD-10-PCS; 2023-08-08)
PROC: 30233N1 Transfusion of Nonautologous Red Blood Cells into Peripheral Vein, Percutaneous Approach (ICD-10-PCS; 2023-08-08)
PROC: 0DH67UZ Insertion of Feeding Device into Stomach, Via Natural or Artificial Opening (ICD-10-PCS; 2023-08-10)
PROC: 0DU607Z Supplement Stomach with Autologous Tissue Substitute, Open Approach (ICD-10-PCS; principal; 2023-08-10 13:00)
PROC: 02HV33Z Insertion of Infusion Device into Superior Vena Cava, Percutaneous Approach (ICD-10-PCS; 2023-08-12)
DX: A41.9 Sepsis, unspecified organism (principal); E43 Unspecified severe protein-calorie malnutrition; J18.9 Pneumonia, unspecified organism; J96.01 Acute respiratory failure with hypoxia; K25.1 Acute gastric ulcer with perforation; N17.9 Acute kidney failure, unspecified; D62 Acute posthemorrhagic anemia; R64 Cachexia; Z68.1 Body mass index [BMI] 19.9 or less, adult; R65.20 Severe sepsis without septic shock; G89.29 Other chronic pain; M54.9 Dorsalgia, unspecified; D50.9 Iron deficiency anemia, unspecified; K21.9 Gastro-esophageal reflux disease without esophagitis; L25.9 Unspecified contact dermatitis, unspecified cause; E88.09 Other disorders of plasma-protein metabolism, not elsewhere classified; F17.210 Nicotine dependence, cigarettes, uncomplicated; R74.01 Elevation of levels of liver transaminase levels; Z71.6 Tobacco abuse counseling; Z88.5 Allergy status to narcotic agent; Z88.8 Allergy status to other drugs, medicaments and biological substances; Z79.01 Long term (current) use of anticoagulants; Z11.52 Encounter for screening for COVID-19; Z79.52 Long term (current) use of systemic steroids; Z28.310 Unvaccinated for COVID-19; Z79.899 Other long term (current) drug therapy
CPT/HCPCS: 0240U; 36415; 36430; 36569; 36600; 71045; 71250; 74018; 74177; 80048; 80053; 80076; 80307; 81001; 82805; 82947; 83520; 83540; 83605; 83735; 83880; 84100; 84132; 84145; 84466; 84484; 85014; 85018; 85025; 85027; 85610; 85730; 86021; 86038; 86430; 86850; 86870; 86900; 86901; 86902; 86920; 86922; 87015; 87040; 87070; 87102; 87116; 87206; 87389; 87807; 88108; 88305; 88312; 93005; 93306; 94010; 94660; 94760; 97116; 97161; 97530; 99284; C9113; J0612; J0692; J0696; J1100; J1170; J1450; J1650; J1940; J2001; J2250; J2270; J2310; J2371; J2405; J2543; J2704; J2710; J2916; J2920; J2930; J3010; J3430; J3475; J3480; J7030; J7040; J7050; J7120; J7512; J7613; J7644; P9016; Q9967

== ENCOUNTER → 2023-11-18 | Emergency (ER) | payer OTHER ==
[~2023-11-18] MED LIST: CEFTRIAXONE 1000 MG/VIAL ONE; FAMOTIDINE 20 MG/2 ML VIAL IV ONE; METRONIDAZOLE 500mg IVPB 500 MG/100 ML BAG IV ONE; MORPHINE 4 MG/ML SYR ONE; NA CHLORIDE 0.9% 1,000 ML ONE; ONDANSETRON 4 MG/2 ML VIAL ONE; PANTOPRAZOLE 40 MG INJ ONE; PANTOPRAZOLE INJ 80 MG in NA CHLORIDE 0.9% 250 ML IV ONE
--- OUTSIDE RECORDS SUMMARY | 2023-11-18 11:24 | XMS REPORT | Continuity of Care Document ---
Author Name Unknown Address [address] [place] [address] [facility] Address [address] [facility] [address] [place] [address] Care Team Providers Care Spare Hand Name Role Phone Tucker Pandey Primary Care Physician [phone] JEMIMA LUDWIG Attending Clinician ANDREW Dixon Attending Clinician Unavailab Tucker Riley Attending Clinician [phone] TUCKER ARAMBULA Attending Clinician Unavailable Elizabeth Crook MD Attending Clinician [phone] Vtc-Lab Attending Clinician Unavailable Meme Vanegas MD Attending Clinician [phone] MEME VANEGAS Attending Clinician Unavailable José Manuel Hendrickson DO Attending Clinician [phone] Emilie GUADALUPE, Chuck Attending Clinician [phone] Shruthi Wise MD Attending Clinician [phone] José Manuel Hendrickson MD Attending Clinician [phone] Doctor Unassigned, Veyo Attending Clinician U da Hodgson RN, Lovely Weber Attending Clinician [phone] YE HU Attending Clinician Unavaila regina Barbosa 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, Shilpa Copeland Attending Clinician [phone] Bigg Dodd DO Attending Clinician [phone] Chris Pierre MD Attending Clinician [phone] Ye Hu MD Attending Clinician [phone] She GUADALUPE, Tati Attending Clinician [phone] OCHOA BRADFORD Attending Clinician Unavailable DOROTA SAWYER Attending Clinician Unavailable Cece Dawson LVN Attending Clinician Unavai lable Lab, Ang - Db Attending Clinician Unavailable Nam Duncan MD Attending Clinician [phone] Chandni YEH, Karoline Webb Attending Clinician Unavail able CANDACE WALSH Attending Clinician Unavailable Gary Price MD Attending Clinician [phone] Candace Walsh DO Attending Clinician [phone] Panfilo Russ MD Attending Clinician [phone] Ketty Beltran Attending Clinician [phone] Kiel Almanzar MD Attending Clinician + KIEL ALMANZAR Attending Clinician Unav abdirizakable Maria De Jesus [facility], Michelle Dye Attending Clinician Unava ilable JYOTI FRAZIER Attending Clinician Unavailabl e Andrew Geller DO Attending Clinician [phone] JOSÉ MANUEL HENDRICKSON Attending Clinician Unavailable Jemima Ludwig MD Attending Clinician [phone] Vls-Lab Attending Clinician Unavailable Sarah Santacruz MD Attending Clinician Un available CHYNA RAMIRES Attending Clinician Unavailable Chyna Ramires MD Attending Clinician [phone] SHERIE MAY Attending Clinician Unavaila Rohit Mccoy MD Attending Clinician [phone] CORNING, ROHIT Attending Clinician Unavailable Shital Naranjo S Attending Clinician [phone] Benjamín GUADALUPE, Ashish Attending Clinician [phone] Jyoti YEH, Shira R Attending Clinician Unavailtodd e [facility] Attending Clinician Estelle Gonzalez MD Attending Clinician [phone] ESTELLE RUBIO Attending Clinician Unavailable JEMIMA LUDWIG Admitting Clinician ANDREW Dixon Admitting Clinician UnavailCHRIS Green Admitting Clinician Unavailable Chris Pierre MD Admitting Clinician [phone] PANFILO RUSS Admitting Clinician Unavailable Panfilo Russ MD Admitting Clinician [phone] KIEL ALMANZAR Admitting Clinician Damien Ludwig MD, Jemima Davison Admitting Clinician + [phone] Benjamín GUADALUPE, Ashish Admitting Clinician [phone] Payers Payer Name Policy Type Policy Number Effective Date Expirati on Date Source [facility] [id number] 2020 00:00:00 [employer] [id number] 2017 00:00:00 Problems Condition Name Condition Details Condition Category Status Onset Date Resolution Date Last Treatment Date Treating Clinician Comments Source Hematemesi s Hematemesi s Disease Active 12-30 00:00: 00 [facility] Abdominal pain, unspecifie d abdominal location Abdominal pain, unspecifie d abdominal location Disease Active 12-30 00:00: 00 Overview: Formattin g of this note might be different from the original. 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 Added automatic ally from request for surgery [id number] [facility] Nausea and vomiting, intractabi lity of vomiting not specified, unspecifie d vomiting type Nausea and vomiting, intractabi lity of vomiting not specified, unspecifie d vomiting type Disease Active 05-10 00:00: 00 Overview: Formattin g of this note might be different from the original. Added automatic ally from request for surgery [id number] [facility] History of bleeding peptic ulcer History of bleeding peptic ulcer Disease Active 05-10 00:00: 00 Overview: Formattin g of this note might be different from the original. Added automatic ally from request for surgery [id number] [facility] Duodenal ulcer Duodenal ulcer Disease Active 06-23 00:00: 00 Overview: Formattin g of this note might be different from the original. Added automatic ally from request for surgery [id number] [facility] Upper GI bleed Upper GI bleed Disease Active 03-20 00:00: 00 [facility] Acute upper GI bleed Acute upper GI bleed Disease Active 03-20 00:00: 00 [facility] Allergies, Adverse Reactions, Alerts Allergy Name Allergy Type Status Severity Reaction(s) Onset Date Inactive Date Treating Clinician Comments Source TRAMADOL DRUG INGREDI Active Anxiety 06-24 00:00: 00 [facility] Tramadol Propensi ty to adverse reaction s Active Shortness of Breath 06-24 00:00: 00 [facility] TYLENOL- CODEINE #2 DRUG Active Anxiety 2021-10 0 00:00: 00 [facility] Tylenol- Codeine #2 Propensi ty to adverse reaction s Active Rash 2021-10 0 00:00: 00 [facility] NO KNOWN ALLERGIE S Drug Class Active [facility] Social History Social Habit Start Date Stop Date Quantity Comments Source History SDOH Social Connections Get Together [facility] History SDOH Social Connections [facility] [employer] History SDOH Social Connections Membership [facility] History SDOH Social Connections Meetings [facility] Gender identity Univ ersity [facility] Sexual orientation [facility]iversity [facility] History of tobacco use Cigarette Smoker [facility] Alcohol intake 2023-06-24 00:00:00 2023-06-24 00:00:00 Lifetime non-drinker (finding) [facility] History of Social function 2023-06-24 00:00:00 2023-06-24 00:00:00 [facility] Exposure to SARS-CoV-2 (event) 2023-01-06 00:00:00 2023-01-16 11:21:00 Not sure [facility] History SDOH Alcohol Frequency 2022-12-31 00:00:00 2022-12-31 00:00:00 3 [facility] History SDOH Alcohol Std Drinks 2022-12-31 00:00:00 2022-12-31 00:00:00 1 [facility] History SDOH Alcohol Binge 2022-12-31 00:00:00 2022-12-31 00:00:00 1 [facility] History SDOH Social Connections Phone 2022-12-31 00:00:00 2022-12-31 00:00:00 5 [facility] History SDOH Social Connections Living 2022-12-31 00:00:00 2022-12-31 00:00:00 8 [facility] History SDOH Physical Activity DPW 2022-12-31 00:00:00 2022-12-31 00:00:00 1 [facility] History SDOH Physical Activity MPS 2022-12-31 00:00:00 2022-12-31 00:00:00 3 [facility] History SDOH Financial 2022-12-31 00:00:00 2022-12-31 00:00:00 5 [facility] History SDOH Food Worry 2022-12-31 00:00:00 2022-12-31 00:00:00 1 [facility] History SDOH Food Scarcity 2022-12-31 00:00:00 2022-12-31 00:00:00 1 [facility] History SDOH Transport Med 2022-12-31 00:00:00 2022-12-31 00:00:00 2 [facility] History SDOH Transport Non-Med 2022-12-31 00:00:00 2022-12-31 00:00:00 2 [facility] Cigarettes smoked current (pack per day) - Reported 2022-12-30 00:00:00 2022-12-30 00:00:00 [facility] Cigarette pack-years 2022-12-30 00:00:00 2022-12-30 00:00:00 [facility] Tobacco Comment 2022-12-30 00:00:00 2022-12-30 00:00:00 Smokes a pack a day per pt, [facility] Tobacco use and exposure 2022-12-30 00:00:00 2022-12-30 00:00:00 Smokeless tobacco non-user [facility] Sex Assigned At 1980 00:00:00 1980 00:00:00 [facility] Smoking Status Start Date Stop Date Source Smokes tobacco daily 2022-12-30 00:00:00 [facility] Medications Ordered Medication Name Filled Medication Name Start Date Stop Date Current Medication? Ordering Clinician Indication Dosage Frequency Signature (SIG) Comments Components Source doxepin 50 mg capsule 2022-10 00:00: 00 Yes [id number] 50mg Take 1 capsule by mouth at bedtime. MUST BE SEEN FOR FURTHER REFILLS [facility] pantoprazol e 40 mg EC tablet 2022-10 00:00: 00 Yes [id number] 40mg Take 1 tablet by mouth in the morning and 1 tablet in the evening. [facility] pantoprazol e 40 mg EC tablet 2022-10 00:00: 00 Yes [id number] 40mg Take 1 tablet by mouth in the morning and 1 tablet in the evening. [facility] doxepin 50 mg capsule 2022-10 00:00: 00 Yes [id number] 50mg Take 1 capsule by mouth at bedtime. MUST BE SEEN FOR FURTHER REFILLS [facility] doxepin 50 mg capsule 2022-10 2- 00:00: 00 Yes [id number] 50mg Take 1 capsule by mouth at bedtime. MUST BE SEEN FOR FURTHER REFILLS [facility] doxepin 50 mg capsule 2022-10 2- 00:00: 00 Yes [id number] 50mg Take 1 capsule by mouth at bedtime. MUST BE SEEN FOR FURTHER REFILLS [facility] doxepin 50 mg capsule 2022-10 2 00:00: 00 10-03 00:00 :00 No [id number] 50mg Take 1 capsule by mouth at bedtime. MUST BE SEEN FOR FURTHER REFILLS [facility] doxepin 50 mg capsule 2022-10 00:00: 00 Yes [id number] 50mg Take 1 capsule by mouth at bedtime. MUST BE SEEN FOR FURTHER REFILLS [facility] doxepin 50 mg capsule 2022-10 00:00: 00 09-14 00:00 :00 No [id number] 50mg Take 1 capsule by mouth at bedtime. MUST BE SEEN FOR FURTHER REFILLS [facility] pantoprazol e 40 mg EC tablet 2022-10 0 00:00: 00 Yes [id number] 40mg Take 1 tablet by mouth in the morning and 1 tablet in the evening. [facility] pantoprazol e 40 mg EC tablet 2022-10 0- 00:00: 00 Yes [id number] 40mg Take 1 tablet by mouth in the morning and 1 tablet in the evening. [facility] pantoprazol e 40 mg EC tablet 2022-10 0-10 00:00: 00 Yes [id number] 40mg Take 1 tablet by mouth in the morning and 1 tablet in the evening. [facility] pantoprazol e 40 mg EC tablet 2022-10 0-10 00:00: 00 09-30 00:00 :00 No [id number] 40mg Take 1 tablet by mouth in the morning and 1 tablet in the evening. [facility] doxepin 50 mg capsule 2022-10 0-03 00:00: 00 Yes [id number] 50mg Take 1 capsule by mouth at bedtime. MUST BE SEEN FOR FURTHER REFILLS [facility] doxepin 50 mg capsule 2022-10 0-03 00:00: 00 Yes [id number] 50mg Take 1 capsule by mouth at bedtime. MUST BE SEEN FOR FURTHER REFILLS [facility] doxepin 50 mg capsule 2022-10 0- 00:00: 00 Yes [id number] 50mg Take 1 capsule by mouth at bedtime. MUST BE SEEN FOR FURTHER REFILLS [facility] doxepin 50 mg capsule 2022-10 0-03 00:00: 00 08-13 00:00 :00 No [id number] 50mg Take 1 capsule by mouth at bedtime. MUST BE SEEN FOR FURTHER REFILLS [facility] pantoprazol e 40 mg EC tablet 8 00:00: 00 Yes [id number] 40mg Take 1 tablet by mouth in the morning and 1 tablet in the evening. [facility] pantoprazol e 40 mg EC tablet 8 00:00: 00 Yes [id number] 40mg Take 1 tablet by mouth in the morning and 1 tablet in the evening. [facility] pantoprazol e 40 mg EC tablet 0 8 00:00: 00 Yes [id number] 40mg Take 1 tablet by mouth in the morning and 1 tablet in the evening. [facility] pantoprazol e 40 mg EC tablet 8 00:00: 00 Yes [id number] 40mg Take 1 tablet by mouth in the morning and 1 tablet in the evening. [facility] pantoprazol e 40 mg EC tablet 0 8 00:00: 00 Yes [id number] 40mg Take 1 tablet by mouth in the morning and 1 tablet in the evening. [facility] pantoprazol e 40 mg EC tablet 0 8 00:00: 00 Yes [id number] 40mg Take 1 tablet by mouth in the morning and 1 tablet in the evening. [facility] pantoprazol e 40 mg EC tablet 2022-0 8 00:00: 00 Yes [id number] 40mg Take 1 tablet by mouth in the morning and 1 tablet in the evening. [facility] pantoprazol e 40 mg EC tablet 2022-0 8-30 00:00: 00 07-23 00:00 :00 No [id number] 40mg Take 1 tablet by mouth in the morning and 1 tablet in the evening. [facility] doxepin 50 mg capsule 2022-0 8-17 00:00: 00 Yes [id number] 50mg Take 1 capsule by mouth at bedtime. [facility] doxepin 50 mg capsule 2022-0 8-17 00:00: 00 Yes [id number] 50mg Take 1 capsule by mouth at bedtime. [facility] doxepin 50 mg capsule 2022-0 8-17 00:00: 00 Yes [id number] 50mg Take 1 capsule by mouth at bedtime. [facility] doxepin 50 mg capsule 2022-0 8-17 00:00: 00 Yes [id number] 50mg Take 1 capsule by mouth at bedtime. [facility] doxepin 50 mg capsule 2022-0 8-17 00:00: 00 Yes [id number] 50mg Take 1 capsule by mouth at bedtime. [facility] doxepin 50 mg capsule 2022-0 8-17 00:00: 00 Yes [id number] 50mg Take 1 capsule by mouth at bedtime. [facility] doxepin 50 mg capsule 2022-0 8-17 00:00: 00 07-16 00:00 :00 No [id number] 50mg Take 1 capsule by mouth at bedtime. [facility] docusate (COLACE) 100 mg capsule 0 5-19 00:00: 00 Yes [id number] 100mg Take 1 capsule by mouth in the morning. [facility] docusate (COLACE) 100 mg capsule 2022-0 5-19 00:00: 00 Yes [id number] 100mg Take 1 capsule by mouth in the morning. [facility] docusate (COLACE) 100 mg capsule 2022-0 5-19 00:00: 00 Yes [id number] 100mg Take 1 capsule by mouth in the morning. [facility] docusate (COLACE) 100 mg capsule 2023-0 5-19 00:00: 00 Yes [id number] 100mg Take 1 capsule by mouth in the morning. [facility] docusate (COLACE) 100 mg capsule 2023-0 5-19 00:00: 00 Yes [id number] 100mg Take 1 capsule by mouth in the morning. [facility] mg capsule 2023-0 5-19 00:00: 00 Yes [id number] 100mg Take 1 capsule by mouth in the morning. [facility] 100 mg capsule 3-0 5-19 00:00: 00 Yes [id number] 100mg Take 1 capsule by mouth in the morning. [facility] ([facility] 100 mg capsule 3-0 5-19 00:00: 00 Yes [id number] 100mg Take 1 capsule by mouth in the morning. [facility] docusate (COLACE) 100 mg capsule 3-0 5-19 00:00: 00 Yes [id number] 100mg Take 1 capsule by mouth in the morning. [facility] 100 mg capsule 3-0 5-19 00:00: 00 Yes [id number] 100mg Take 1 capsule by mouth in the morning. [facility] 100 mg capsule 3-0 5-19 00:00: 00 Yes [id number] 100mg Take 1 capsule by mouth in the morning. [facility] docusate (COLACE) 100 mg capsule 3-0 5-19 00:00: 00 Yes [id number] 100mg Take 1 capsule by mouth in the morning. [facility] mg capsule 3-0 5-19 00:00: 00 Yes [id number] 100mg Take 1 capsule by mouth in the morning. [facility] 100 mg capsule 2023-0 5-19 00:00: 00 Yes [id number] 100mg Take 1 capsule by mouth in the morning. [facility] mg capsule 2023-0 5-19 00:00: 00 Yes [id number] 100mg Take 1 capsule by mouth in the morning. [facility] 100 mg capsule 2022-0 -19 00:00: 00 Yes [id number] 100mg Take 1 capsule by mouth in the morning. [facility] mg capsule 3-0 5-19 00:00: 00 Yes [id number] 100mg Take 1 capsule by mouth in the morning. [facility] 100 mg capsule 2022-0 -19 00:00: 00 Yes [id number] 100mg Take 1 capsule by mouth in the morning. [facility] docusate (COLACE) 100 mg capsule 3-0 5-19 00:00: 00 Yes [id number] 100mg Take 1 capsule by mouth in the morning. [facility] docusate (COLACE) 100 mg capsule 3-0 5-17 00:00: 00 Yes [id number] 100mg Take 1 capsule by mouth in the morning. [facility] docusate (COLACE) 100 mg capsule 2022-0 5-17 00:00: 00 05-19 00:00 :00 No [id number] 100mg Take 1 capsule by mouth in the morning. [facility] ondansetron 4 mg tablet 3-0 4-12 00:00: 00 Yes [id number] 4mg Take 1 tablet by mouth every 12 (twelve) hours. [facility] ondansetron 4 mg tablet 3-0 4-12 00:00: 00 Yes [id number] 4mg Take 1 tablet by mouth every 12 (twelve) hours. [facility] ondansetron 4 mg tablet 3-0 4-12 00:00: 00 Yes [id number] 4mg Take 1 tablet by mouth every 12 (twelve) hours. [facility] ondansetron 4 mg tablet 3-0 4-12 00:00: 00 Yes [id number] 4mg Take 1 tablet by mouth every 12 (twelve) hours. [facility] ondansetron 4 mg tablet 3-0 4-12 00:00: 00 Yes [id number] 4mg Take 1 tablet by mouth every 12 (twelve) hours. [facility] ondansetron 4 mg tablet 2023-0 4-12 00:00: 00 Yes [id number] 4mg Take 1 tablet by mouth every 12 (twelve) hours. [facility] mg tablet 2023-0 4-12 00:00: 00 Yes [id number] 4mg Take 1 tablet by mouth every 12 (twelve) hours. [facility] ondansetron 4 mg tablet 2023-0 4-12 00:00: 00 Yes [id number] 4mg Take 1 tablet by mouth every 12 (twelve) hours. [facility] ondansetron 4 mg tablet 2023-0 4-12 00:00: 00 Yes [id number] 4mg Take 1 tablet by mouth every 12 (twelve) hours. [facility] ondansetron 4 mg tablet 2023-0 4-12 00:00: 00 Yes [id number] 4mg Take 1 tablet by mouth every 12 (twelve) hours. [facility] ondansetron 4 mg tablet 2023-0 4-12 00:00: 00 Yes [id number] 4mg Take 1 tablet by mouth every 12 (twelve) hours. [facility] ondansetron 4 mg tablet 2023-0 4-12 00:00: 00 Yes [id number] 4mg Take 1 tablet by mouth every 12 (twelve) hours. [facility] ondansetron 4 mg tablet 2023-0 4-12 00:00: 00 Yes [id number] 4mg Take 1 tablet by mouth every 12 (twelve) hours. [facility] ondansetron 4 mg tablet 2023-0 4-12 00:00: 00 Yes [id number] 4mg Take 1 tablet by mouth every 12 (twelve) hours. [facility] ondansetron 4 mg tablet 2023-0 4-12 00:00: 00 Yes [id number] 4mg Take 1 tablet by mouth every 12 (twelve) hours. [facility] ondansetron 4 mg tablet 2023-0 4-12 00:00: 00 Yes [id number] 4mg Take 1 tablet by mouth every 12 (twelve) hours. [facility] ondansetron 4 mg tablet 3-0 4-12 00:00: 00 Yes [id number] 4mg Take 1 tablet by mouth every 12 (twelve) hours. [facility] ondansetron 4 mg tablet 3-0 4-12 00:00: 00 Yes [id number] 4mg Take 1 tablet by mouth every 12 (twelve) hours. [facility] ondansetron 4 mg tablet 2022-0 4-12 00:00: 00 Yes [id number] 4mg Take 1 tablet by mouth every 12 (twelve) hours. [facility] ondansetron 4 mg tablet 2022-0 4-12 00:00: 00 Yes [id number] 4mg Take 1 tablet by mouth every 12 (twelve) hours. [facility] ondansetron 4 mg tablet 2022-0 4-12 00:00: 00 Yes [id number] 4mg Take 1 tablet by mouth every 12 (twelve) hours. [facility] ondansetron 4 mg tablet 2022-0 4-12 00:00: 00 Yes [id number] 4mg Take 1 tablet by mouth every 12 (twelve) hours. [facility] ondansetron 4 mg tablet 2022-0 4-12 00:00: 00 Yes [id number] 4mg Take 1 tablet by mouth every 12 (twelve) hours. [facility] ketoconazol e 2 % shampoo 2022-0 4-05 00:00: 00 Yes [id number] Apply to area(s) once daily as needed for Itching. [facility] triamcinolo ne acetonide 0.1 % cream 2022-0 4-05 00:00: 00 Yes [id number] Apply to area(s) 2 (two) times daily. [facility] ketoconazol e 2 % shampoo 2022-0 4-05 00:00: 00 Yes [id number] Apply to area(s) once daily as needed for Itching. [facility] triamcinolo ne acetonide 0.1 % cream 2022-0 4-05 00:00: 00 Yes [id number] Apply to area(s) 2 (two) times daily. [facility] ketoconazol e 2 % shampoo 3-0 4-05 00:00: 00 Yes [id number] Apply to area(s) once daily as needed for Itching. [facility] triamcinolo ne acetonide 0.1 % cream 2022-0 4-05 00:00: 00 Yes [id number] Apply to area(s) 2 (two) times daily. [facility] % shampoo 2022-0 4-05 00:00: 00 Yes [id number] Apply to area(s) once daily as needed for Itching. [facility] triamcinolo ne acetonide 0.1 % cream 2022-0 4-05 00:00: 00 Yes [id number] Apply to area(s) 2 (two) times daily. [facility] ketoconazol e 2 % shampoo 2022-0 4-05 00:00: 00 Yes [id number] Apply to area(s) once daily as needed for Itching. [facility] triamcinolo ne acetonide 0.1 % cream 2022-0 -05 00:00: 00 Yes [id number] Apply to area(s) 2 (two) times daily. [facility] ketoconazol e 2 % shampoo 2022-0 -05 00:00: 00 Yes [id number] Apply to area(s) once daily as needed for Itching. [facility] triamcinolo ne acetonide 0.1 % cream 2022-0 4-05 00:00: 00 Yes [id number] Apply to area(s) 2 (two) times daily. [facility] ketoconazol e 2 % shampoo 3-0 4-05 00:00: 00 Yes [id number] Apply to area(s) once daily as needed for Itching. [facility] triamcinolo ne acetonide 0.1 % cream 2022-0 4-05 00:00: 00 Yes [id number] Apply to area(s) 2 (two) times daily. [facility] ketoconazol e 2 % shampoo 2023-0 4-05 00:00: 00 Yes [id number] Apply to area(s) once daily as needed for Itching. [facility] triamcinolo ne acetonide 0.1 % cream 2022-0 4-05 00:00: 00 Yes [id number] Apply to area(s) 2 (two) times daily. [facility] ketoconazol e 2 % shampoo 2022-0 4-05 00:00: 00 Yes [id number] Apply to area(s) once daily as needed for Itching. [facility] triamcinolo ne acetonide 0.1 % cream 2022-0 4-05 00:00: 00 Yes [id number] Apply to area(s) 2 (two) times daily. [facility] ketoconazol e 2 % shampoo 2022-0 4-05 00:00: 00 Yes [id number] Apply to area(s) once daily as needed for Itching. [facility] triamcinolo ne acetonide 0.1 % cream 2022-0 4-05 00:00: 00 Yes [id number] Apply to area(s) 2 (two) times daily. [facility] [facility] ketoconazol e 2 % shampoo 3-0 4-05 00:00: 00 Yes [id number] Apply to area(s) once daily as needed for Itching. [facility] triamcinolo ne acetonide 0.1 % cream 2022-0 4-05 00:00: 00 Yes [id number] Apply to area(s) 2 (two) times daily. [facility] ketoconazol e 2 % shampoo 3-0 4-05 00:00: 00 Yes [id number] Apply to area(s) once daily as needed for Itching. [facility] triamcinolo ne acetonide 0.1 % cream 2022-0 4-05 00:00: 00 Yes [id number] Apply to area(s) 2 (two) times daily. [facility] ketoconazol e 2 % shampoo 2023-0 4-05 00:00: 00 Yes [id number] Apply to area(s) once daily as needed for Itching. [facility] triamcinolo ne acetonide 0.1 % cream 3-0 4-05 00:00: 00 Yes [id number] Apply to area(s) 2 (two) times daily. [facility] ketoconazol e 2 % shampoo 2022-0 4-05 00:00: 00 Yes [id number] Apply to area(s) once daily as needed for Itching. [facility] triamcinolo ne acetonide 0.1 % cream 2022-0 4-05 00:00: 00 Yes [id number] Apply to area(s) 2 (two) times daily. [facility] ketoconazol e 2 % shampoo 2022-0 4-05 00:00: 00 Yes [id number] Apply to area(s) once daily as needed for Itching. [facility] triamcinolo ne acetonide 0.1 % cream 2022-0 4-05 00:00: 00 Yes [id number] Apply to area(s) 2 (two) times daily. [facility] ketoconazol e 2 % shampoo 2022-0 4-05 00:00: 00 Yes [id number] Apply to area(s) once daily as needed for Itching. [facility] triamcinolo ne acetonide 0.1 % cream 2022-0 -05 00:00: 00 Yes [id number] Apply to area(s) 2 (two) times daily. [facility] ketoconazol e 2 % shampoo 3-0 4-05 00:00: 00 Yes [id number] Apply to area(s) once daily as needed for Itching. [facility] triamcinolo ne acetonide 0.1 % cream 2022-0 4-05 00:00: 00 Yes [id number] Apply to area(s) 2 (two) times daily. [facility] ketoconazol e 2 % shampoo 3-0 4-05 00:00: 00 Yes [id number] Apply to area(s) once daily as needed for Itching. [facility] triamcinolo ne acetonide 0.1 % cream 3-0 4-05 00:00: 00 Yes [id number] Apply to area(s) 2 (two) times daily. [facility] % shampoo 3-0 4-05 00:00: 00 Yes [id number] Apply to area(s) once daily as needed for Itching. [facility] triamcinolo ne acetonide 0.1 % cream 2022-0 4-05 00:00: 00 Yes [id number] Apply to area(s) 2 (two) times daily. [facility] ket[facility] 2 % shampoo 3-0 4-05 00:00: 00 Yes [id number] Apply to area(s) once daily as needed for Itching. [facility] triamcinolo ne acetonide 0.1 % cream 2022-0 4-05 00:00: 00 Yes [id number] Apply to area(s) 2 (two) times daily. [facility] ketoconazol e 2 % shampoo 3-0 4-05 00:00: 00 Yes [id number] Apply to area(s) once daily as needed for Itching. [facility] triamcinolo ne acetonide 0.1 % cream 2022-0 4-05 00:00: 00 Yes [id number] Apply to area(s) 2 (two) times daily. [facility] ketoconazol e 2 % shampoo 3-0 4-05 00:00: 00 Yes [id number] Apply to area(s) once daily as needed for Itching. [facility] triamcinolo ne acetonide 0.1 % cream 2022-0 4-05 00:00: 00 Yes [id number] Apply to area(s) 2 (two) times daily. [facility] ketoconazol e 2 % shampoo 3-0 4-05 00:00: 00 Yes [id number] Apply to area(s) once daily as needed for Itching. [facility] triamcinolo ne acetonide 0.1 % cream 3-0 4-05 00:00: 00 Yes [id number] Apply to area(s) 2 (two) times daily. [facility] ketoconazol e 2 % shampoo 2022-0 4-05 00:00: 00 Yes [id number] Apply to area(s) once daily as needed for Itching. [facility] triamcinolo ne acetonide 0.1 % cream 2022-0 4-05 00:00: 00 Yes [id number] Apply to area(s) 2 (two) times daily. [facility] ketoconazol e 2 % shampoo 2022-0 4-05 00:00: 00 Yes [id number] Apply to area(s) once daily as needed for Itching. [facility] triamcinolo ne acetonide 0.1 % cream 2022-0 4-05 00:00: 00 Yes [id number] Apply to area(s) 2 (two) times daily. [facility] ketoconazol e 2 % shampoo 2022-0 4-05 00:00: 00 Yes [id number] Apply to area(s) once daily as needed for Itching. [facility] triamcinolo ne acetonide 0.1 % cream 2022-0 4-05 00:00: 00 Yes [id number] Apply to area(s) 2 (two) times daily. [facility] ketoconazol e 2 % shampoo 2022-0 4-05 00:00: 00 Yes [id number] Apply to area(s) once daily as needed for Itching. [facility] triamcinolo ne acetonide 0.1 % cream 2022-0 4-05 00:00: 00 Yes [id number] Apply to area(s) 2 (two) times daily. [facility] ketoconazol e 2 % shampoo 2022-0 4-05 00:00: 00 Yes [id number] Apply to area(s) once daily as needed for Itching. [facility] triamcinolo ne acetonide 0.1 % cream 2022-0 4-05 00:00: 00 Yes [id number] Apply to area(s) 2 (two) times daily. [facility] ondansetron 4 mg tablet 2022-0 3-31 00:00: 00 Yes [id number] 4mg Take 1 tablet by mouth every 12 (twelve) hours. [facility] ondansetron 4 mg tablet 01-11 00:00: 00 Yes [id number] 4mg Take 1 tablet by mouth every 12 (twelve) hours. [facility] ondansetron 4 mg tablet 01-11 00:00: 00 Yes [id number] 4mg Take 1 tablet by mouth every 12 (twelve) hours. [facility] ondansetron 4 mg tablet 01-11 00:00: 00 Yes [id number] 4mg Take 1 tablet by mouth every 12 (twelve) hours. [facility] ondansetron 4 mg tablet 01-11 00:00: 00 Yes [id number] 4mg Take 1 tablet by mouth every 12 (twelve) hours. [facility] ondansetron 4 mg tablet 01-11 00:00: 00 01-18 00:00 :00 No [id number] 4mg Take 1 tablet by mouth every 12 (twelve) hours. [facility] ondansetron 4 mg tablet 01-11 00:00: 00 01-18 00:00 :00 No [id number] 4mg Take 1 tablet by mouth every 12 (twelve) hours. [facility] clindamycin (CLEOCIN T) 1 % topical solution 01-03 01:00: 00 Yes Topical, BID, First dose on Sat01/02/23 at 1999, Until Discontinu ed, Routine [facility] fluocinolon e (SYNALAR) 0.01 % solution 01-03 01:00: 00 Yes Topical, BID, First dose on Sat01/02/23 at 2000, Until Discontinu ed, Routine [facility] traMADoL (ULTRAM) tablet 50 mg 01-02 18:13: 01 Yes 50mg 50 mg, Oral, Q6HPRN, Starting on Sat01/02/23 at 1313, Until Discontinu ed, Routine, Pain (scale 4-6) [facility] aspirin/steve icylamide/c affeine (BC HEADACHE POWDER ORAL) 01-02 15:08: 01-02 00:00 :00 No Take by mouth 2 (two) times daily. [facility] aspirin/steve icylamide/c affeine (BC HEADACHE POWDER ORAL) 01-02 15:08: 01-02 00:00 :00 No Take by mouth 2 (two) times daily. [facility] aspirin/steve icylamide/c affeine (BC HEADACHE POWDER ORAL) 01-02 15:08: 01-02 00:00 :00 No Take by mouth 2 (two) times daily. [facility] aspirin/steve icylamide/c affeine (BC HEADACHE POWDER ORAL) 01-02 15:: 01-02 00:00 :00 No Take by mouth 2 (two) times daily. [facility] aspirin/steve icylamide/c affeine (BC HEADACHE POWDER ORAL) 01-02 15:: 01-02 00:00 :00 No Take by mouth 2 (two) times daily. [facility] polyethylen e glycol 3350 powder 17 g 01-02 14:00: 00 Yes 17g 17 g, Oral, DAILY, First dose on Sat01/02/23 at 0900, Until Discontinu ed, Routine [facility] polyethylen e glycol 3350 powder 17 g 01-02 14:00: 00 Yes 17g 17 g, Oral, DAILY, First dose on Sat01/02/23 at 0900, Until Discontinu ed, Routine [facility] alum-mag hydroxide-s imeth (MAALOX PLUS / MAG-AL PLUS) 200-200-20 mg/5 mL suspension 30 mL 01-02 13:15: 00 Yes 30mL 30 mL, Oral, BID, First dose (after last modificati on) on Sat01/02/23 at 0815, Until Discontinu ed, Routine [facility] alum-mag hydroxide-s imeth (MAALOX PLUS / MAG-AL PLUS) 200-200-20 mg/5 mL suspension 30 mL 01-02 13:15: 00 Yes 30mL 30 mL, Oral, BID, First dose (after last modificati on) on Sat01/02/23 at 0815, Until Discontinu ed, Routine [facility] KCL (KLOR-CON M20) tablet 40 mEq 01-02 13:15: 00 01-02 12:47 :00 No 40meq 40 mEq, Oral, ONCE, 1 dose, On Sat01/02/23 at 0815, Routine [facility] aspirin/steve icylamide/c affeine (BC HEADACHE POWDER ORAL) 01-02 09:16: 18 Yes Take by mouth 2 (two) times daily. [facility] alum-mag hydroxide-s imeth (MAALOX PLUS / MAG-AL PLUS) 200-200-20 mg/5 mL suspension 30 mL 01-02 08:53: 04 01-02 13:10 :22 No 30mL 30 mL, Oral, Q6HPRN, Starting on Sat01/02/23 at 0353, Until Sat01/02/23 at 0810, Routine, Indigestio n [facility] pantoprazol e (PROTONIX) EC tablet 40 mg 01-02 01:00: 00 Yes 40mg 40 mg, Oral, BID, First dose on Sat01/01/23 at 2000, Until Discontinu ed, Routine [facility] pantoprazol e (PROTONIX) EC tablet 40 mg 01-02 01:00: 00 Yes 40mg 40 mg, Oral, BID, First dose on Sat01/01/23 at 2000, Until Discontinu ed, Routine [facility] ondansetron 4 mg tablet 01-02 00:00: 00 Yes [id number] 4mg Take 1 tablet by mouth every 12 (twelve) hours. [facility] ondansetron 4 mg tablet 01-02 00:00: 00 Yes [id number] 4mg Take 1 tablet by mouth every 12 (twelve) hours. [facility] pantoprazol e 40 mg EC tablet 01-02 00:00: 00 Yes [id number] 40mg Take 1 tablet by mouth in the morning and 1 tablet in the evening. [facility] ondansetron 4 mg tablet 2022-0 01-02 00:00: 00 Yes [id number] 4mg Take 1 tablet by mouth every 12 (twelve) hours. [facility] pantoprazol e 40 mg EC tablet 2022-0 01-02 00:00: 00 Yes [id number] 40mg Take 1 tablet by mouth in the morning and 1 tablet in the evening. [facility] ondansetron 4 mg tablet 2022-0 01-02 00:00: 00 Yes [id number] 4mg Take 1 tablet by mouth every 12 (twelve) hours. [facility] pantoprazol e 40 mg EC tablet 2022-0 01-02 00:00: 00 Yes [id number] 40mg Take 1 tablet by mouth in the morning and 1 tablet in the evening. [facility] ondansetron 4 mg tablet 2022-0 01-02 00:00: 00 Yes [id number] 4mg Take 1 tablet by mouth every 12 (twelve) hours. [facility] pantoprazol e 40 mg EC tablet 2022-0 01-02 00:00: 00 Yes [id number] 40mg Take 1 tablet by mouth in the morning and 1 tablet in the evening. [facility] pantoprazol e 40 mg EC tablet 2022-0 01-02 00:00: 00 Yes [id number] 40mg Take 1 tablet by mouth in the morning and 1 tablet in the evening. [facility] pantoprazol e 40 mg EC tablet 2022-0 01-02 00:00: 00 Yes [id number] 40mg Take 1 tablet by mouth in the morning and 1 tablet in the evening. [facility] pantoprazol e 40 mg EC tablet 3-0 01-02 00:00: 00 Yes [id number] 40mg Take 1 tablet by mouth in the morning and 1 tablet in the evening. [facility] pantoprazol e 40 mg EC tablet 2022-0 01-02 00:00: 00 Yes [id number] 40mg Take 1 tablet by mouth in the morning and 1 tablet in the evening. [facility] pantoprazol e 40 mg EC tablet 2022-0 01-02 00:00: 00 Yes [id number] 40mg Take 1 tablet by mouth in the morning and 1 tablet in the evening. [facility] pantoprazol e 40 mg EC tablet 0 01-02 00:00: 00 Yes [id number] 40mg Take 1 tablet by mouth in the morning and 1 tablet in the evening. [facility] pantoprazol e 40 mg EC tablet 0 01-02 00:00: 00 Yes [id number] 40mg Take 1 tablet by mouth in the morning and 1 tablet in the evening. [facility] pantoprazol e 40 mg EC tablet 0 01-02 00:00: 00 Yes [id number] 40mg Take 1 tablet by mouth in the morning and 1 tablet in the evening. [facility] pantoprazol e 40 mg EC tablet 0 01-02 00:00: 00 Yes [id number] 40mg Take 1 tablet by mouth in the morning and 1 tablet in the evening. [facility] pantoprazol e 40 mg EC tablet 0 01-02 00:00: 00 Yes [id number] 40mg Take 1 tablet by mouth in the morning and 1 tablet in the evening. [facility] pantoprazol e 40 mg EC tablet 0 01-02 00:00: 00 Yes [id number] 40mg Take 1 tablet by mouth in the morning and 1 tablet in the evening. [facility] pantoprazol e 40 mg EC tablet 2022-0 01-02 00:00: 00 Yes [id number] 40mg Take 1 tablet by mouth in the morning and 1 tablet in the evening. [facility] pantoprazol e 40 mg EC tablet 2022-0 01-02 00:00: 00 Yes [id number] 40mg Take 1 tablet by mouth in the morning and 1 tablet in the evening. [facility] pantoprazol e 40 mg EC tablet 2022-0 01-02 00:00: 00 Yes [id number] 40mg Take 1 tablet by mouth in the morning and 1 tablet in the evening. [facility] pantoprazol e 40 mg EC tablet 2022-0 01-02 00:00: 00 Yes [id number] 40mg Take 1 tablet by mouth in the morning and 1 tablet in the evening. [facility] pantoprazol e 40 mg EC tablet 01-02 00:00: 00 Yes [id number] 40mg Take 1 tablet by mouth in the morning and 1 tablet in the evening. [facility] pantoprazol e 40 mg EC tablet 01-02 00:00: 00 Yes [id number] 40mg Take 1 tablet by mouth in the morning and 1 tablet in the evening. [facility] pantoprazol e 40 mg EC tablet 01-02 00:00: 00 Yes [id number] 40mg Take 1 tablet by mouth in the morning and 1 tablet in the evening. [facility] pantoprazol e 40 mg EC tablet 01-02 00:00: 00 06-12 00:00 :00 No [id number] 40mg Take 1 tablet by mouth in the morning and 1 tablet in the evening. [facility] ondansetron 4 mg tablet 01-02 00:00: 00 01-11 00:00 :00 No [id number] 4mg Take 1 tablet by mouth every 12 (twelve) hours. [facility] ondansetron 4 mg tablet 01-02 00:00: 00 01-11 00:00 :00 No [id number] 4mg Take 1 tablet by mouth every 12 (twelve) hours. [facility] ondansetron 4 mg tablet 01-02 00:00: 00 01-11 00:00 :00 No [id number] 4mg Take 1 tablet by mouth every 12 (twelve) hours. [facility] morpHINE (2 mg/mL) injection 4 mg 01-01 18:51: 08 01-02 12:30 :00 No 4mg 4 mg, Slow IV Push, Q4HPRN, Starting on Sat01/01/23 at 1351, Until Sat01/02/23 at 0730, Routine, Breakthrou gh pain [facility] calcium gluconate 2 g in NaCl 100 mL (ISO-OSM) RTU IV infusion 2 g 01-01 11:45: 00 01-01 12:03 :00 No 2g 2 g, IV Infusion, at 200 mL/hr Administer over 30 Minutes, ONCE, 1 dose, On Sat01/01/23 at 0645, Routine [facility] acetaminoph en ADULT (OFIRMEV) injection 743 mg 01-01 03:00: 00 01-01 19:31 :00 No 743mg 743 mg, IV Infusion, at 297.2 mL/hr Administer over 15 Minutes, Q8H, 3 doses, First dose on Sat12/31/22 at 2200, Last dose on Sat01/01/23 at 1400, Routine
Indicatio n: Non-periop erative Patient
Approved by: Per Policy (NPO Status) [facility] pantoprazol e (PROTONIX) injection 40 mg 01-01 01:00: 00 01-01 22:07 :32 No 40mg 40 mg, Slow IV Push, Q12H, First dose on Sat12/31/22 at 2000, Until Discontinu ed [facility] nicotine (NICODERM) 7 mg/24 hr patch 1 Patch 12-31 21:00: 00 Yes 1{patch } 1 Patch, Topical, Administer over 24 Hours, Q24H, First dose on Sat12/31/22 at 1600, Until Discontinu ed, Routine [facility] nicotine (NICODERM) 7 mg/24 hr patch 1 Patch 12-31 21:00: 00 Yes 1{patch } 1 Patch, Topical, Administer over 24 Hours, Q24H, First dose on Sat12/31/22 at 1600, Until Discontinu ed, Routine [facility] HYDROcodone -acetaminop hen (NORCO 5) 5-325 mg tablet 1 tablet 12-31 16:49: 43 Yes 1{tbl} 1 tablet, Oral, Q6HPRN, Starting on Sat12/31/22 at 1149, Until Discontinu ed, Routine, Pain (scale 4-6) [facility] HYDROcodone -acetaminop hen (NORCO 5) 5-325 mg tablet 1 tablet 12-31 16:49: 43 Yes 1{tbl} 1 tablet, Oral, Q6HPRN, Starting on Sat12/31/22 at 1149, Until Discontinu ed, Routine, Pain (scale 4-6) [facility] lactated ringers IV infusion 1,000 mL 12-31 15:30: 00 01-01 22:03 :36 No 1000mL at 42 mL/hr, 1,000 mL, IV Infusion, CONTINUOUS , Starting on Sat12/31/22 at 1030, Until Sat01/01/23 at 1703, Routine [facility] calcium gluconate 2 g in NaCl 100 mL (ISO-OSM) RTU IV infusion 2 g 12-31 12:00: 00 12-31 16:25 :00 No 2g 2 g, IV Infusion, at 200 mL/hr Administer over 30 Minutes, ONCE, 1 dose, On Sat12/31/22 at 0700, Routine [facility] morpHINE (2 mg/mL) injection 4 mg 12-31 11:08: 04 01-01 18:51 :43 No 4mg 4 mg, Slow IV Push, Q4HPRN, Starting on Sat12/31/22 at 0608, Until Sat01/01/23 at 1351, Routine, Breakthrou gh pain [facility] potassium phosphate 20 mmol in NaCl 0.9% (NS) 250 mL piggyback 12-31 07:15: 00 12-31 13:24 :00 No 20mmol 20 mmol, IV Piggyback, ONCE, 1 dose, On Sat12/31/22 at 0215, 250 mL [facility] magnesium sulfate in water 2 gram/50 mL (4 %) infusion 2 g 12-31 07:15: 00 12-31 08:43 :00 No 2g 2 g, IV Piggyback, Administer over 60 Minutes, ONCE, 1 dose, On Sat12/31/22 at 0215, Routine [facility] lactated ringers IV infusion 1,000 mL 2023-0 3-20 04:15: 00 12-31 15:17 :50 No 1000mL at 100 mL/hr, 1,000 mL, IV Infusion, CONTINUOUS , Starting on Sat12/30/22 at 2315, Until Sat12/31/22 at 1017, Routine [facility] morpHINE (2 mg/mL) injection 2 mg 12-31 03:59: 50 12-31 11:09 :30 No 2mg 2 mg, Slow IV Push, Q4HPRN, Starting on Sat12/30/22 at 2259, Until Sat12/31/22 at 0609, Routine, Breakthrou gh pain [facility] acetaminoph en ADULT (OFIRMEV) injection 749 mg 12-31 03:59: 13 12-31 19:50 :46 No 749mg 749 mg, IV Infusion, at 299.6 mL/hr Administer over 15 Minutes, Q8HPRN, Starting on Sat12/30/22 at 2259, Until Sat12/31/22 at 1450, Routine, Pain (scale 1-3)
In dication: Non-periop erative Patient
Approved by: Per Policy (NPO Status) [facility] ondansetron (ZOFRAN (PF)) injection 4 mg 12-31 03:57: 56 Yes 4mg 4 mg, Slow IV Push, Q6HPRN, Starting on Sat12/30/22 at 2257, Until Discontinu ed, Routine, Nausea and Vomiting (N/V) [facility] ondansetron (ZOFRAN (PF)) injection 4 mg 12-31 03:57: 56 Yes 4mg 4 mg, Slow IV Push, Q6HPRN, Starting on Sat12/30/22 at 2257, Until Discontinu ed, Routine, Nausea and Vomiting (N/V) [facility] FENTanyl PF (SUBLIMAZE (PF)) injection 50 mcg 12-31 02:36: 00 12-31 02:37 :00 No 50ug 50 mcg, Slow IV Push, ONCE, 1 dose, On Sat12/30/22 at 2145, Routine [facility] iopamidol (ISOVUE 370-500 mL) injection 100 mL 12-31 02:15: 00 12-31 02:15 :00 No [id number] 100mL 100 mL, Intravenou s, ONCE, 1 dose, On Sat12/30/22 at 2115, Routine [facility] pantoprazol e (PROTONIX) 80 mg in NaCl 0.9% (NS) 500 mL infusion 12-30 23:45: 00 12-31 04:02 :21 No 8mg/h 8 mg/hr (50 mL/hr), IV Infusion, CONTINUOUS , Starting on Sat12/30/22 at 1845 [facility] pantoprazol e (PROTONIX) 80 mg in NaCl 0.9% (NS) 20 mL syringe 12-30 23:30: 00 12-30 23:32 :00 No 80mg 80 mg, IV Push, ONCE, 1 dose, On Sat12/30/22 at 1830, Administer over 2 Minutes, 20 mL [facility] NaCl 0.9% (NS) bolus infusion 1,000 mL 12-30 23:15: 00 12-31 01:23 :00 No 1000mL at 999 mL/hr, 1,000 mL, IV Infusion, ONCE, 1 dose, On Sat12/30/22 at 1815, JESSICA [facility] ondansetron (ZOFRAN (PF)) injection 4 mg 12-30 22:45: 00 12-30 23:07 :00 No 4mg 4 mg, Slow IV Push, ONCE, 1 dose, On Sat12/30/22 at 1745, JESSICA [facility] morpHINE (4 mg/mL) injection 4 mg 12-30 22:45: 00 12-30 23:07 :00 No 4mg 4 mg, Slow IV Push, ONCE, 1 dose, On Sat12/30/22 at 1745, STAT [facility] pantoprazol e 40 mg EC tablet 2-24 00:00: 00 Yes [id number] 40mg Take 1 tablet by mouth every morning and evening. [facility] pantoprazol e 40 mg EC tablet 0 2-24 00:00: 00 Yes [id number] 40mg Take 1 tablet by mouth every morning and evening. [facility] pantoprazol e 40 mg EC tablet 0 24 00:00: 00 01-02 00:00 :00 No [id number] 40mg Take 1 tablet by mouth every morning and evening. [facility] doxepin 50 mg capsule 0 2-17 00:00: 00 Yes [id number] 50mg Take 1 capsule by mouth at bedtime. [facility] pantoprazol e 40 mg EC tablet 0 -17 00:00: 00 Yes [id number] 40mg Take 1 tablet by mouth every morning and evening. [facility] docusate (COLACE) 100 mg capsule 2022-0 -17 00:00: 00 Yes [id number] 100mg Take 1 capsule by mouth in the morning. [facility] doxepin 50 mg capsule 2022-0 -17 00:00: 00 Yes [id number] 50mg Take 1 capsule by mouth at bedtime. [facility] pantoprazol e 40 mg EC tablet 0 -17 00:00: 00 Yes [id number] 40mg Take 1 tablet by mouth every morning and evening. [facility] docusate (COLACE) 100 mg capsule 0 17 00:00: 00 Yes [id number] 100mg Take 1 capsule by mouth in the morning. [facility] doxepin 50 mg capsule 2022-0 2-17 00:00: 00 Yes [id number] 50mg Take 1 capsule by mouth at bedtime. [facility] docusate (COLACE) 100 mg capsule 2022-0 2-17 00:00: 00 Yes [id number] 100mg Take 1 capsule by mouth in the morning. [facility] doxepin 50 mg capsule 2022-0 2-17 00:00: 00 Yes [id number] 50mg Take 1 capsule by mouth at bedtime. [facility] docusate (COLACE) 100 mg capsule 2023-0 2-17 00:00: 00 Yes [id number] 100mg Take 1 capsule by mouth in the morning. [facility] doxepin 50 mg capsule 2023-0 2-17 00:00: 00 Yes [id number] 50mg Take 1 capsule by mouth at bedtime. [facility] docusate (COLACE) 100 mg capsule 2023-0 2-17 00:00: 00 Yes [id number] 100mg Take 1 capsule by mouth in the morning. [facility] doxepin 50 mg capsule 2023-0 2-17 00:00: 00 Yes [id number] 50mg Take 1 capsule by mouth at bedtime. [facility] docusate (COLACE) 100 mg capsule 3-0 2-17 00:00: 00 Yes [id number] 100mg Take 1 capsule by mouth in the morning. [facility] doxepin 50 mg capsule 2023-0 2-17 00:00: 00 Yes [id number] 50mg Take 1 capsule by mouth at bedtime. [facility] docusate (COLACE) 100 mg capsule 3-0 2-17 00:00: 00 Yes [id number] 100mg Take 1 capsule by mouth in the morning. [facility] doxepin 50 mg capsule 3-0 2-17 00:00: 00 Yes [id number] 50mg Take 1 capsule by mouth at bedtime. [facility] docusate (COLACE) 100 mg capsule 3-0 2-17 00:00: 00 Yes [id number] 100mg Take 1 capsule by mouth in the morning. [facility] doxepin 50 mg capsule 2023-0 2-17 00:00: 00 Yes [id number] 50mg Take 1 capsule by mouth at bedtime. [facility] docusate (COLACE) 100 mg capsule 3-0 2-17 00:00: 00 Yes [id number] 100mg Take 1 capsule by mouth in the morning. [facility] doxepin 50 mg capsule 2023-0 2-17 00:00: 00 Yes [id number] 50mg Take 1 capsule by mouth at bedtime. [facility] docusate (COLACE) 100 mg capsule 3-0 2-17 00:00: 00 Yes [id number] 100mg Take 1 capsule by mouth in the morning. [facility] doxepin 50 mg capsule 3-0 2-17 00:00: 00 Yes [id number] 50mg Take 1 capsule by mouth at bedtime. [facility] docusate (COLACE) 100 mg capsule 3-0 2-17 00:00: 00 Yes [id number] 100mg Take 1 capsule by mouth in the morning. [facility] doxepin 50 mg capsule 3-0 2-17 00:00: 00 Yes [id number] 50mg Take 1 capsule by mouth at bedtime. [facility] docusate (COLACE) 100 mg capsule 3-0 2-17 00:00: 00 Yes [id number] 100mg Take 1 capsule by mouth in the morning. [facility] doxepin 50 mg capsule 3-0 2-17 00:00: 00 Yes [id number] 50mg Take 1 capsule by mouth at bedtime. [facility] docusate (COLACE) 100 mg capsule 3-0 2-17 00:00: 00 Yes [id number] 100mg Take 1 capsule by mouth in the morning. [facility] doxepin 50 mg capsule 3-0 2-17 00:00: 00 Yes [id number] 50mg Take 1 capsule by mouth at bedtime. [facility] docusate (COLACE) 100 mg capsule 3-0 2-17 00:00: 00 Yes [id number] 100mg Take 1 capsule by mouth in the morning. [facility] doxepin 50 mg capsule 3-0 2-17 00:00: 00 Yes [id number] 50mg Take 1 capsule by mouth at bedtime. [facility] docusate (COLACE) 100 mg capsule 3-0 2-17 00:00: 00 Yes [id number] 100mg Take 1 capsule by mouth in the morning. [facility] doxepin 50 mg capsule 3-0 2-17 00:00: 00 Yes [id number] 50mg Take 1 capsule by mouth at bedtime. [facility] docusate (COLACE) 100 mg capsule 3-0 2-17 00:00: 00 Yes [id number] 100mg Take 1 capsule by mouth in the morning. [facility] doxepin 50 mg capsule 3-0 2-17 00:00: 00 Yes [id number] 50mg Take 1 capsule by mouth at bedtime. [facility] docusate (COLACE) 100 mg capsule 3-0 2-17 00:00: 00 Yes [id number] 100mg Take 1 capsule by mouth in the morning. [facility] doxepin 50 mg capsule 3-0 2-17 00:00: 00 Yes [id number] 50mg Take 1 capsule by mouth at bedtime. [facility] docusate (COLACE) 100 mg capsule 3-0 2-17 00:00: 00 Yes [id number] 100mg Take 1 capsule by mouth in the morning. [facility] doxepin 50 mg capsule 3-0 2-17 00:00: 00 Yes [id number] 50mg Take 1 capsule by mouth at bedtime. [facility] doxepin 50 mg capsule 3-0 2-17 00:00: 00 Yes [id number] 50mg Take 1 capsule by mouth at bedtime. [facility] doxepin 50 mg capsule 2023-0 2-17 00:00: 00 Yes [id number] 50mg Take 1 capsule by mouth at bedtime. [facility] doxepin 50 mg capsule 2023-0 2-17 00:00: 00 Yes [id number] 50mg Take 1 capsule by mouth at bedtime. [facility] doxepin 50 mg capsule 2023-0 2-17 00:00: 00 Yes [id number] 50mg Take 1 capsule by mouth at bedtime. [facility] doxepin 50 mg capsule 2023-0 2-17 00:00: 00 Yes [id number] 50mg Take 1 capsule by mouth at bedtime. [facility] doxepin 50 mg capsule 2023-0 2-17 00:00: 00 Yes [id number] 50mg Take 1 capsule by mouth at bedtime. [facility] doxepin 50 mg capsule 11-30 00:00: 00 05-30 00:00 :00 No [id number] 50mg Take 1 capsule by mouth at bedtime. [facility] docusate (COLACE) 100 mg capsule 11-30 00:00: 00 02-27 00:00 :00 No [id number] 100mg Take 1 capsule by mouth in the morning. [facility] clindamycin 300 mg capsule 11-30 00:00: 00 12-08 05:59 :00 No [id number] 300mg Take 1 capsule by mouth in the morning and 1 capsule at noon and 1 capsule in the evening. Do all this for 7 days. [facility] clindamycin 300 mg capsule 11-30 00:00: 00 12-08 05:59 :00 No [id number] 300mg Take 1 capsule by mouth in the morning and 1 capsule at noon and 1 capsule in the evening. Do all this for 7 days. [facility] clindamycin 300 mg capsule 11-30 00:00: 00 12-08 05:59 :00 No [id number] 300mg Take 1 capsule by mouth in the morning and 1 capsule at noon and 1 capsule in the evening. Do all this for 7 days. [facility] pantoprazol e 40 mg EC tablet 11-30 00:00: 00 12-07 00:00 :00 No [id number] 40mg Take 1 tablet by mouth every morning and evening. [facility] naproxen 500 mg tablet 2021-10 00:00: 00 Yes [id number] TAKE 1 TABLET BY MOUTH TWICE DAILY NEEDED FOR MODERATE PAIN. Use sparingly due to side effects [facility] ergocalcife rol, vitamin d2, 1,250 mcg (50,000 unit) capsule 2021-10 00:00: 00 Yes [id number] Take 1 capsule by mouth weekly. [facility] naproxen 500 mg tablet 2021-10 00:00: 00 Yes [id number] TAKE 1 TABLET BY MOUTH TWICE DAILY NEEDED FOR MODERATE PAIN. Use sparingly due to side effects [facility] ergocalcife rol, vitamin d2, 1,250 mcg (50,000 unit) capsule 2021-10 00:00: 00 Yes [id number] Take 1 capsule by mouth weekly. [facility] naproxen 500 mg tablet 2021-10 00:00: 00 Yes [id number] TAKE 1 TABLET BY MOUTH TWICE DAILY NEEDED FOR MODERATE PAIN. Use sparingly due to side effects [facility] ergocalcife rol, vitamin d2, 1,250 mcg (50,000 unit) capsule 2021-10 00:00: 00 Yes [id number] Take 1 capsule by mouth weekly. [facility] naproxen 500 mg tablet 2021-10 00:00: 00 Yes [id number] TAKE 1 TABLET BY MOUTH TWICE DAILY NEEDED FOR MODERATE PAIN. Use sparingly due to side effects [facility] ergocalcife rol, vitamin d2, 1,250 mcg (50,000 unit) capsule 2021-10 00:00: 00 Yes [id number] Take 1 capsule by mouth weekly. [facility] ergocalcife rol, vitamin d2, 1,250 mcg (50,000 unit) capsule 2021-10 00:00: 00 Yes [id number] Take 1 capsule by mouth weekly. [facility] ergocalcife rol, vitamin d2, 1,250 mcg (50,000 unit) capsule 2021-10 00:00: 00 Yes [id number] Take 1 capsule by mouth weekly. [facility] ergocalcife rol, vitamin d2, 1,250 mcg (50,000 unit) capsule 2021-10 00:00: 00 Yes [id number] Take 1 capsule by mouth weekly. [facility] ergocalcife rol, vitamin d2, 1,250 mcg (50,000 unit) capsule 2021-10 00:00: 00 Yes [id number] Take 1 capsule by mouth weekly. [facility] ergocalcife rol, vitamin d2, 1,250 mcg (50,000 unit) capsule 2021-10 00:00: 00 Yes [id number] Take 1 capsule by mouth weekly. [facility] ergocalcife rol, vitamin d2, 1,250 mcg (50,000 unit) capsule 2021-10 00:00: 00 Yes [id number] Take 1 capsule by mouth weekly. [facility] ergocalcife rol, vitamin d2, 1,250 mcg (50,000 unit) capsule 2021-10 00:00: 00 Yes [id number] Take 1 capsule by mouth weekly. [facility] ergocalcife rol, vitamin d2, 1,250 mcg (50,000 unit) capsule 2021-10 00:00: 00 Yes [id number] Take 1 capsule by mouth weekly. [facility] ergocalcife rol, vitamin d2, 1,250 mcg (50,000 unit) capsule 2021-10 00:00: 00 Yes [id number] Take 1 capsule by mouth weekly. [facility] ergocalcife rol, vitamin d2, 1,250 mcg (50,000 unit) capsule 2021-10 00:00: 00 Yes [id number] Take 1 capsule by mouth weekly. [facility] ergocalcife rol, vitamin d2, 1,250 mcg (50,000 unit) capsule 2021-10 00:00: 00 Yes [id number] Take 1 capsule by mouth weekly. [facility] ergocalcife rol, vitamin d2, 1,250 mcg (50,000 unit) capsule 2021-10 00:00: 00 Yes [id number] Take 1 capsule by mouth weekly. [facility] ergocalcife rol, vitamin d2, 1,250 mcg (50,000 unit) capsule 2021-10 00:00: 00 Yes [id number] Take 1 capsule by mouth weekly. [facility] ergocalcife rol, vitamin d2, 1,250 mcg (50,000 unit) capsule 2021-10 00:00: 00 Yes [id number] Take 1 capsule by mouth weekly. [facility] ergocalcife rol, vitamin d2, 1,250 mcg (50,000 unit) capsule 2021-10 00:00: 00 Yes [id number] Take 1 capsule by mouth weekly. [facility] ergocalcife rol, vitamin d2, 1,250 mcg (50,000 unit) capsule 2021-10 00:00: 00 Yes [id number] Take 1 capsule by mouth weekly. [facility] ergocalcife rol, vitamin d2, 1,250 mcg (50,000 unit) capsule 2021-10 00:00: 00 Yes [id number] Take 1 capsule by mouth weekly. [facility] ergocalcife rol, vitamin d2, 1,250 mcg (50,000 unit) capsule 2021-10 00:00: 00 Yes [id number] Take 1 capsule by mouth weekly. [facility] ergocalcife rol, vitamin d2, 1,250 mcg (50,000 unit) capsule 2021-10 00:00: 00 Yes [id number] Take 1 capsule by mouth weekly. [facility] ergocalcife rol, vitamin d2, 1,250 mcg (50,000 unit) capsule 2021-10 00:00: 00 Yes [id number] Take 1 capsule by mouth weekly. [facility] ergocalcife rol, vitamin d2, 1,250 mcg (50,000 unit) capsule 2021-10 00:00: 00 Yes [id number] Take 1 capsule by mouth weekly. [facility] ergocalcife rol, vitamin d2, 1,250 mcg (50,000 unit) capsule 2021-10 00:00: 00 Yes [id number] Take 1 capsule by mouth weekly. [facility] ergocalcife rol, vitamin d2, 1,250 mcg (50,000 unit) capsule 2021-10 00:00: 00 Yes [id number] Take 1 capsule by mouth weekly. [facility] ergocalcife rol, vitamin d2, 1,250 mcg (50,000 unit) capsule 2021-10 00:00: 00 Yes [id number] Take 1 capsule by mouth weekly. [facility] ergocalcife rol, vitamin d2, 1,250 mcg (50,000 unit) capsule 2021-10 00:00: 00 Yes [id number] Take 1 capsule by mouth weekly. [facility] ergocalcife rol, vitamin d2, 1,250 mcg (50,000 unit) capsule 2021-10 00:00: 00 Yes [id number] Take 1 capsule by mouth weekly. [facility] ergocalcife rol, vitamin d2, 1,250 mcg (50,000 unit) capsule 2021-10 00:00: 00 Yes [id number] Take 1 capsule by mouth weekly. [facility] ergocalcife rol, vitamin d2, 1,250 mcg (50,000 unit) capsule 2021-10 00:00: 00 Yes [id number] Take 1 capsule by mouth weekly. [facility] ergocalcife rol, vitamin d2, 1,250 mcg (50,000 unit) capsule 2021-10 00:00: 00 Yes [id number] Take 1 capsule by mouth weekly. [facility] ergocalcife rol, vitamin d2, 1,250 mcg (50,000 unit) capsule 2021-10 00:00: 00 Yes [id number] Take 1 capsule by mouth weekly. [facility] ergocalcife rol, vitamin d2, 1,250 mcg (50,000 unit) capsule 2021-10 00:00: 00 Yes [id number] Take 1 capsule by mouth weekly. [facility] ergocalcife rol, vitamin d2, 1,250 mcg (50,000 unit) capsule 2021-10 00:00: 00 Yes [id number] Take 1 capsule by mouth weekly. [facility] ergocalcife rol, vitamin d2, 1,250 mcg (50,000 unit) capsule 2021-10 00:00: 00 Yes [id number] Take 1 capsule by mouth weekly. [facility] ergocalcife rol, vitamin d2, 1,250 mcg (50,000 unit) capsule 2021-10 00:00: 00 Yes [id number] Take 1 capsule by mouth weekly. [facility] ergocalcife rol, vitamin d2, 1,250 mcg (50,000 unit) capsule 2021-10 00:00: 00 Yes [id number] Take 1 capsule by mouth weekly. [facility] ergocalcife rol, vitamin d2, 1,250 mcg (50,000 unit) capsule 2021-10 00:00: 00 Yes [id number] Take 1 capsule by mouth weekly. [facility] ergocalcife rol, vitamin d2, 1,250 mcg (50,000 unit) capsule 2021-10 00:00: 00 Yes [id number] Take 1 capsule by mouth weekly. [facility] ergocalcife rol, vitamin d2, 1,250 mcg (50,000 unit) capsule 2021-10 00:00: 00 Yes [id number] Take 1 capsule by mouth weekly. [facility] ergocalcife rol, vitamin d2, 1,250 mcg (50,000 unit) capsule 2021-10 00:00: 00 Yes [id number] Take 1 capsule by mouth weekly. [facility] naproxen 500 mg tablet 2021-10 00:00: 00 01-02 00:00 :00 No [id number] TAKE 1 TABLET BY MOUTH TWICE DAILY NEEDED FOR MODERATE PAIN. Use sparingly due to side effects [facility] naproxen 500 mg tablet 2021-10 00:00: 00 01-02 00:00 :00 No [id number] TAKE 1 TABLET BY MOUTH TWICE DAILY NEEDED FOR MODERATE PAIN. Use sparingly due to side effects [facility] ergocalcife rol, vitamin d2, 1,250 mcg (50,000 unit) capsule 2021-10 00:00: 00 Yes [id number] Take 1 capsule by mouth weekly. [facility] ergocalcife rol, vitamin d2, 1,250 mcg (50,000 unit) capsule 2021-10 00:00: 00 10-11 00:00 :00 No [id number] Take 1 capsule by mouth weekly. [facility] naproxen 500 mg tablet 2021-10 00:00: 00 Yes [id number] TAKE 1 TABLET BY MOUTH TWICE DAILY NEEDED FOR MODERATE PAIN. Use sparingly due to side effects [facility] naproxen 500 mg tablet 2021-10 00:00: 00 Yes [id number] TAKE 1 TABLET BY MOUTH TWICE DAILY NEEDED FOR MODERATE PAIN. Use sparingly due to side effects [facility] naproxen 500 mg tablet 2021-10 00:00: 00 Yes [id number] TAKE 1 TABLET BY MOUTH TWICE DAILY NEEDED FOR MODERATE PAIN. Use sparingly due to side effects [facility] naproxen 500 mg tablet 2021-10 00:00: 00 Yes [id number] TAKE 1 TABLET BY MOUTH TWICE DAILY NEEDED FOR MODERATE PAIN. Use sparingly due to side effects [facility] naproxen 500 mg tablet 2021-10 00:00: 00 10-11 00:00 :00 No [id number] TAKE 1 TABLET BY MOUTH TWICE DAILY NEEDED FOR MODERATE PAIN. Use sparingly due to side effects [facility] polyethylen e glycol 3350 17 gram powder 2021-10 0 00:00: 00 Yes [id number] 1{packe t} Take 1 Packet by mouth 2 (two) times daily as needed for Constipati on. [facility] polyethylen e glycol 3350 17 gram powder 2021-10 014 00:00: 00 Yes [id number] 1{packe t} Take 1 Packet by mouth 2 (two) times daily as needed for Constipati on. [facility] polyethylen e glycol 3350 17 gram powder 2021- 0-14 00:00: 00 Yes [id number] 1{packe t} Take 1 Packet by mouth 2 (two) times daily as needed for Constipati on. [facility] polyethylen e glycol 3350 17 gram powder 2021-10 0-14 00:00: 00 Yes [id number] 1{packe t} Take 1 Packet by mouth 2 (two) times daily as needed for Constipati on. [facility] polyethylen e glycol 3350 17 gram powder 2021-10 0-14 00:00: 00 Yes [id number] 1{packe t} Take 1 Packet by mouth 2 (two) times daily as needed for Constipati on. [facility] polyethylen e glycol 3350 17 gram powder 2021- 0-14 00:00: 00 Yes [id number] 1{packe t} Take 1 Packet by mouth 2 (two) times daily as needed for Constipati on. [facility] polyethylen e glycol 3350 17 gram powder 2021-10 0-14 00:00: 00 Yes [id number] 1{packe t} Take 1 Packet by mouth 2 (two) times daily as needed for Constipati on. [facility] polyethylen e glycol 3350 17 gram powder 2021- 0-14 00:00: 00 Yes [id number] 1{packe t} Take 1 Packet by mouth 2 (two) times daily as needed for Constipati on. [facility] polyethylen e glycol 3350 17 gram powder 2021- 0-14 00:00: 00 Yes [id number] 1{packe t} Take 1 Packet by mouth 2 (two) times daily as needed for Constipati on. [facility] polyethylen e glycol 3350 17 gram powder 2021- 0-14 00:00: 00 Yes [id number] 1{packe t} Take 1 Packet by mouth 2 (two) times daily as needed for Constipati on. [facility] polyethylen e glycol 3350 17 gram powder 2021- 0-14 00:00: 00 Yes [id number] 1{packe t} Take 1 Packet by mouth 2 (two) times daily as needed for Constipati on. [facility] polyethylen e glycol 3350 17 gram powder 2021-10 0-14 00:00: 00 Yes [id number] 1{packe t} Take 1 Packet by mouth 2 (two) times daily as needed for Constipati on. [facility] polyethylen e glycol 3350 17 gram powder 2021-10 0-14 00:00: 00 Yes [id number] 1{packe t} Take 1 Packet by mouth 2 (two) times daily as needed for Constipati on. [facility] polyethylen e glycol 3350 17 gram powder 2021-10 0-14 00:00: 00 Yes [id number] 1{packe t} Take 1 Packet by mouth 2 (two) times daily as needed for Constipati on. [facility] polyethylen e glycol 3350 17 gram powder 2021-10 0-14 00:00: 00 Yes [id number] 1{packe t} Take 1 Packet by mouth 2 (two) times daily as needed for Constipati on. [facility] polyethylen e glycol 3350 17 gram powder 2021-10 0-14 00:00: 00 Yes [id number] 1{packe t} Take 1 Packet by mouth 2 (two) times daily as needed for Constipati on. [facility] polyethylen e glycol 3350 17 gram powder 2021-10 0-14 00:00: 00 Yes [id number] 1{packe t} Take 1 Packet by mouth 2 (two) times daily as needed for Constipati on. [facility] pantoprazol e 40 mg EC tablet 2021-10 0-14 00:00: 00 Yes [id number] 40mg Take 1 tablet by mouth every morning and evening. [facility] docusate (COLACE) 100 mg capsule 2021-10 0-14 00:00: 00 Yes [id number] 100mg Take 1 capsule by mouth in the morning. [facility] polyethylen e glycol 3350 17 gram powder 2021-10 0-14 00:00: 00 Yes [id number] 1{packe t} Take 1 Packet by mouth 2 (two) times daily as needed for Constipati on. [facility] pantoprazol e 40 mg EC tablet 2021-10 014 00:00: 00 Yes [id number] 40mg Take 1 tablet by mouth every morning and evening. [facility] docusate (COLACE) 100 mg capsule 2021-10 00:00: 00 Yes [id number] 100mg Take 1 capsule by mouth in the morning. [facility] polyethylen e glycol 3350 17 gram powder 2021-10 00:00: 00 Yes [id number] 1{packe t} Take 1 Packet by mouth 2 (two) times daily as needed for Constipati on. [facility] pantoprazol e 40 mg EC tablet 2021-10 00:00: 00 Yes [id number] 40mg Take 1 tablet by mouth every morning and evening. [facility] docusate (COLACE) 100 mg capsule 2021-10 00:00: 00 Yes [id number] 100mg Take 1 capsule by mouth in the morning. [facility] polyethylen e glycol 3350 17 gram powder 2021-10 00:00: 00 Yes [id number] 1{packe t} Take 1 Packet by mouth 2 (two) times daily as needed for Constipati on. [facility] pantoprazol e 40 mg EC tablet 2021-10 00:00: 00 Yes [id number] 40mg Take 1 tablet by mouth every morning and evening. [facility] docusate (COLACE) 100 mg capsule 2021-10 00:00: 00 Yes [id number] 100mg Take 1 capsule by mouth in the morning. [facility] polyethylen e glycol 3350 17 gram powder 2021-10 0 00:00: 00 Yes [id number] 1{packe t} Take 1 Packet by mouth 2 (two) times daily as needed for Constipati on. [facility] pantoprazol e 40 mg EC tablet 2021-10 00:00: 00 Yes [id number] 40mg Take 1 tablet by mouth every morning and evening. [facility] docusate (COLACE) 100 mg capsule 2021-10 00:00: 00 Yes [id number] 100mg Take 1 capsule by mouth in the morning. [facility] polyethylen e glycol 3350 17 gram powder 2021-10 014 00:00: 00 Yes [id number] 1{packe t} Take 1 Packet by mouth 2 (two) times daily as needed for Constipati on. [facility] pantoprazol e 40 mg EC tablet 2021-10 0 00:00: 00 Yes [id number] 40mg Take 1 tablet by mouth every morning and evening. [facility] docusate (COLACE) 100 mg capsule 2021-10 0 00:00: 00 Yes [id number] 100mg Take 1 capsule by mouth in the morning. [facility] polyethylen e glycol 3350 17 gram powder 2021-10 00:00: 00 Yes [id number] 1{packe t} Take 1 Packet by mouth 2 (two) times daily as needed for Constipati on. [facility] pantoprazol e 40 mg EC tablet 2021-10 00:00: 00 Yes [id number] 40mg Take 1 tablet by mouth every morning and evening. [facility] docusate (COLACE) 100 mg capsule 2021-10 00:00: 00 Yes [id number] 100mg Take 1 capsule by mouth in the morning. [facility] polyethylen e glycol 3350 17 gram powder 2021-10 0 00:00: 00 Yes [id number] 1{packe t} Take 1 Packet by mouth 2 (two) times daily as needed for Constipati on. [facility] pantoprazol e 40 mg EC tablet 2021-10 0 00:00: 00 Yes [id number] 40mg Take 1 tablet by mouth every morning and evening. [facility] docusate (COLACE) 100 mg capsule 2021-10 0 00:00: 00 Yes [id number] 100mg Take 1 capsule by mouth in the morning. [facility] polyethylen e glycol 3350 17 gram powder 2021-10 014 00:00: 00 Yes [id number] 1{packe t} Take 1 Packet by mouth 2 (two) times daily as needed for Constipati on. [facility] pantoprazol e 40 mg EC tablet 2021-10 014 00:00: 00 Yes [id number] 40mg Take 1 tablet by mouth every morning and evening. [facility] docusate (COLACE) 100 mg capsule 2021-10 014 00:00: 00 Yes [id number] 100mg Take 1 capsule by mouth in the morning. [facility] polyethylen e glycol 3350 17 gram powder 2021-10 0-14 00:00: 00 Yes [id number] 1{packe t} Take 1 Packet by mouth 2 (two) times daily as needed for Constipati on. [facility] pantoprazol e 40 mg EC tablet 2021-10 0 00:00: 00 Yes [id number] 40mg Take 1 tablet by mouth every morning and evening. [facility] docusate (COLACE) 100 mg capsule 2021-10 0 00:00: 00 Yes [id number] 100mg Take 1 capsule by mouth in the morning. [facility] polyethylen e glycol 3350 17 gram powder 2021-10 0-14 00:00: 00 Yes [id number] 1{packe t} Take 1 Packet by mouth 2 (two) times daily as needed for Constipati on. [facility] polyethylen e glycol 3350 17 gram powder 2021-10 0-14 00:00: 00 Yes [id number] 1{packe t} Take 1 Packet by mouth 2 (two) times daily as needed for Constipati on. [facility] polyethylen e glycol 3350 17 gram powder 2021-10 0-14 00:00: 00 Yes [id number] 1{packe t} Take 1 Packet by mouth 2 (two) times daily as needed for Constipati on. [facility] polyethylen e glycol 3350 17 gram powder 2021-10 0-14 00:00: 00 Yes [id number] 1{packe t} Take 1 Packet by mouth 2 (two) times daily as needed for Constipati on. [facility] polyethylen e glycol 3350 17 gram powder 2021-10 0-14 00:00: 00 Yes [id number] 1{packe t} Take 1 Packet by mouth 2 (two) times daily as needed for Constipati on. [facility] polyethylen e glycol 3350 17 gram powder 2021-10 0-14 00:00: 00 Yes [id number] 1{packe t} Take 1 Packet by mouth 2 (two) times daily as needed for Constipati on. [facility] polyethylen e glycol 3350 17 gram powder 2021-10 0-14 00:00: 00 Yes [id number] 1{packe t} Take 1 Packet by mouth 2 (two) times daily as needed for Constipati on. [facility] polyethylen e glycol 3350 17 gram powder 2021-10 0-14 00:00: 00 Yes [id number] 1{packe t} Take 1 Packet by mouth 2 (two) times daily as needed for Constipati on. [facility] polyethylen e glycol 3350 17 gram powder 2021-10 0-14 00:00: 00 Yes [id number] 1{packe t} Take 1 Packet by mouth 2 (two) times daily as needed for Constipati on. [facility] polyethylen e glycol 3350 17 gram powder 2021-10 0-14 00:00: 00 Yes [id number] 1{packe t} Take 1 Packet by mouth 2 (two) times daily as needed for Constipati on. [facility] polyethylen e glycol 3350 17 gram powder 2021-10 0-14 00:00: 00 Yes [id number] 1{packe t} Take 1 Packet by mouth 2 (two) times daily as needed for Constipati on. [facility] polyethylen e glycol 3350 17 gram powder 2021-10 0-14 00:00: 00 Yes [id number] 1{packe t} Take 1 Packet by mouth 2 (two) times daily as needed for Constipati on. [facility] polyethylen e glycol 3350 17 gram powder 2021- 0-14 00:00: 00 Yes [id number] 1{packe t} Take 1 Packet by mouth 2 (two) times daily as needed for Constipati on. [facility] polyethylen e glycol 3350 17 gram powder 0-14 00:00: 00 Yes [id number] 1{packe t} Take 1 Packet by mouth 2 (two) times daily as needed for Constipati on. [facility] polyethylen e glycol 3350 17 gram powder 2021-10 0-14 00:00: 00 Yes [id number] 1{packe t} Take 1 Packet by mouth 2 (two) times daily as needed for Constipati on. [facility] polyethylen e glycol 3350 17 gram powder 2021- 0-14 00:00: 00 Yes [id number] 1{packe t} Take 1 Packet by mouth 2 (two) times daily as needed for Constipati on. [facility] polyethylen e glycol 3350 17 gram powder 2021-10 0-14 00:00: 00 Yes [id number] 1{packe t} Take 1 Packet by mouth 2 (two) times daily as needed for Constipati on. [facility] polyethylen e glycol 3350 17 gram powder 2021-10 0-14 00:00: 00 Yes [id number] 1{packe t} Take 1 Packet by mouth 2 (two) times daily as needed for Constipati on. [facility] polyethylen e glycol 3350 17 gram powder 2021-10 0-14 00:00: 00 Yes [id number] 1{packe t} Take 1 Packet by mouth 2 (two) times daily as needed for Constipati on. [facility] polyethylen e glycol 3350 17 gram powder 2021-10 0-14 00:00: 00 Yes [id number] 1{packe t} Take 1 Packet by mouth 2 (two) times daily as needed for Constipati on. [facility] polyethylen e glycol 3350 17 gram powder 2021- 0-14 00:00: 00 Yes [id number] 1{packe t} Take 1 Packet by mouth 2 (two) times daily as needed for Constipati on. [facility] polyethylen e glycol 3350 17 gram powder 2021- 0-14 00:00: 00 Yes [id number] 1{packe t} Take 1 Packet by mouth 2 (two) times daily as needed for Constipati on. [facility] polyethylen e glycol 3350 17 gram powder 2021-10 0-14 00:00: 00 Yes [id number] 1{packe t} Take 1 Packet by mouth 2 (two) times daily as needed for Constipati on. [facility] polyethylen e glycol 3350 17 gram powder 2021-10 0-14 00:00: 00 Yes [id number] 1{packe t} Take 1 Packet by mouth 2 (two) times daily as needed for Constipati on. [facility] polyethylen e glycol 3350 17 gram powder 2021-10 0-14 00:00: 00 Yes [id number] 1{packe t} Take 1 Packet by mouth 2 (two) times daily as needed for Constipati on. [facility] polyethylen e glycol 3350 17 gram powder 2021-10 0-14 00:00: 00 Yes [id number] 1{packe t} Take 1 Packet by mouth 2 (two) times daily as needed for Constipati on. [facility] polyethylen e glycol 3350 17 gram powder 2021-10 0-14 00:00: 00 Yes [id number] 1{packe t} Take 1 Packet by mouth 2 (two) times daily as needed for Constipati on. [facility] pantoprazol e 40 mg EC tablet 2021-10 0-14 00:00: 00 11-30 00:00 :00 No [id number] 40mg Take 1 tablet by mouth every morning and evening. [facility] docusate (COLACE) 100 mg capsule 2021-10 0-14 00:00: 00 11-30 00:00 :00 No [id number] 100mg Take 1 capsule by mouth in the morning. [facility] pantoprazol e 40 mg EC tablet 2021-10 0-14 00:00: 00 11-30 00:00 :00 No [id number] 40mg Take 1 tablet by mouth every morning and evening. [facility] docusate (COLACE) 100 mg capsule 2021-10 0-14 00:00: 00 11-30 00:00 :00 No [id number] 100mg Take 1 capsule by mouth in the morning. [facility] ERGOCALCIFE ROL, VITAMIN D2, 1,250 mcg (50,000 unit) capsule 2021-10 00:00: 00 Yes [id number] TAKE 1 CAPSULE BY MOUTH WEEKLY [facility] naproxen 500 mg tablet 2021-10 00:00: 00 Yes [id number] TAKE 1 TABLET BY MOUTH TWICE DAILY NEEDED FOR MODERATE PAIN. Use sparingly due to side effects [facility] ERGOCALCIFE ROL, VITAMIN D2, 1,250 mcg (50,000 unit) capsule 2021-10 00:00: 00 Yes [id number] TAKE 1 CAPSULE BY MOUTH WEEKLY [facility] naproxen 500 mg tablet 2021-10 00:00: 00 Yes [id number] TAKE 1 TABLET BY MOUTH TWICE DAILY NEEDED FOR MODERATE PAIN. Use sparingly due to side effects [facility] ERGOCALCIFE ROL, VITAMIN D2, 1,250 mcg (50,000 unit) capsule 2021-10 00:00: 00 Yes [id number] TAKE 1 CAPSULE BY MOUTH WEEKLY [facility] naproxen 500 mg tablet 2021-10 00:00: 00 Yes [id number] TAKE 1 TABLET BY MOUTH TWICE DAILY NEEDED FOR MODERATE PAIN. Use sparingly due to side effects [facility] ERGOCALCIFE ROL, VITAMIN D2, 1,250 mcg (50,000 unit) capsule 2021-10 00:00: 00 Yes [id number] TAKE 1 CAPSULE BY MOUTH WEEKLY [facility] naproxen 500 mg tablet 2021-10 00:00: 00 Yes [id number] TAKE 1 TABLET BY MOUTH TWICE DAILY NEEDED FOR MODERATE PAIN. Use sparingly due to side effects [facility] ERGOCALCIFE ROL, VITAMIN D2, 1,250 mcg (50,000 unit) capsule 2021-10 00:00: 00 Yes [id number] TAKE 1 CAPSULE BY MOUTH WEEKLY [facility] naproxen 500 mg tablet 2021-10 00:00: 00 Yes [id number] TAKE 1 TABLET BY MOUTH TWICE DAILY NEEDED FOR MODERATE PAIN. Use sparingly due to side effects [facility] ERGOCALCIFE ROL, VITAMIN D2, 1,250 mcg (50,000 unit) capsule 2021-10 00:00: 00 Yes [id number] TAKE 1 CAPSULE BY MOUTH WEEKLY [facility] naproxen 500 mg tablet 2021-10 00:00: 00 Yes [id number] TAKE 1 TABLET BY MOUTH TWICE DAILY NEEDED FOR MODERATE PAIN. Use sparingly due to side effects [facility] ERGOCALCIFE ROL, VITAMIN D2, 1,250 mcg (50,000 unit) capsule 2021-10 00:00: 00 Yes [id number] TAKE 1 CAPSULE BY MOUTH WEEKLY [facility] ERGOCALCIFE ROL, VITAMIN D2, 1,250 mcg (50,000 unit) capsule 2021-10 00:00: 00 Yes [id number] TAKE 1 CAPSULE BY MOUTH WEEKLY [facility] ERGOCALCIFE ROL, VITAMIN D2, 1,250 mcg (50,000 unit) capsule 2021-10 00:00: 00 Yes [id number] TAKE 1 CAPSULE BY MOUTH WEEKLY [facility] ERGOCALCIFE ROL, VITAMIN D2, 1,250 mcg (50,000 unit) capsule 2021-10 00:00: 00 10-10 00:00 :00 No [id number] TAKE 1 CAPSULE BY MOUTH WEEKLY [facility] naproxen 500 mg tablet 2021-10 00:00: 00 08-22 00:00 :00 No [id number] TAKE 1 TABLET BY MOUTH TWICE DAILY NEEDED FOR MODERATE PAIN. Use sparingly due to side effects [facility] SUCRALFATE 1 gram tablet 06-29 00:00: 00 Yes [id number] 1g TAKE 1 TABLET BY MOUTH BEFORE MEALS AND AT BEDTIME [facility] SUCRALFATE 1 gram tablet 06-29 00:00: 00 Yes [id number] 1g TAKE 1 TABLET BY MOUTH BEFORE MEALS AND AT BEDTIME [facility] SUCRALFATE 1 gram tablet 2021-0 -16 00:00: 00 Yes [id number] 1g TAKE 1 TABLET BY MOUTH BEFORE MEALS AND AT BEDTIME [facility] SUCRALFATE 1 gram tablet 2021-0 -16 00:00: 00 Yes [id number] 1g TAKE 1 TABLET BY MOUTH BEFORE MEALS AND AT BEDTIME [facility] SUCRALFATE 1 gram tablet 2021-0 -16 00:00: 00 Yes [id number] 1g TAKE 1 TABLET BY MOUTH BEFORE MEALS AND AT BEDTIME [facility] SUCRALFATE 1 gram tablet 2021-0 -16 00:00: 00 Yes [id number] 1g TAKE 1 TABLET BY MOUTH BEFORE MEALS AND AT BEDTIME [facility] SUCRALFATE 1 gram tablet 2021-0 -16 00:00: 00 Yes [id number] 1g TAKE 1 TABLET BY MOUTH BEFORE MEALS AND AT BEDTIME [facility] SUCRALFATE 1 gram tablet 2021-0 -16 00:00: 00 Yes [id number] 1g TAKE 1 TABLET BY MOUTH BEFORE MEALS AND AT BEDTIME [facility] SUCRALFATE 1 gram tablet 2021-0 -16 00:00: 00 Yes [id number] 1g TAKE 1 TABLET BY MOUTH BEFORE MEALS AND AT BEDTIME [facility] SUCRALFATE 1 gram tablet 2021-0 -16 00:00: 00 Yes [id number] 1g TAKE 1 TABLET BY MOUTH BEFORE MEALS AND AT BEDTIME [facility] SUCRALFATE 1 gram tablet 2021-0 -16 00:00: 00 Yes [id number] 1g TAKE 1 TABLET BY MOUTH BEFORE MEALS AND AT BEDTIME [facility] SUCRALFATE 1 gram tablet 2021-0 -16 00:00: 00 Yes [id number] 1g TAKE 1 TABLET BY MOUTH BEFORE MEALS AND AT BEDTIME [facility] SUCRALFATE 1 gram tablet 2021-0 -16 00:00: 00 11-30 00:00 :00 No [id number] 1g TAKE 1 TABLET BY MOUTH BEFORE MEALS AND AT BEDTIME [facility] SUCRALFATE 1 gram tablet 2022-0 9-16 00:00: 00 11-30 00:00 :00 No [id number] 1g TAKE 1 TABLET BY MOUTH BEFORE MEALS AND AT BEDTIME [facility] naproxen 500 mg tablet 06-06 00:00: 00 Yes [id number] TAKE 1 TABLET BY MOUTH TWICE DAILY NEEDED FOR MODERATE PAIN. Use sparingly due to side effects [facility] naproxen 500 mg tablet 06-06 00:00: 00 Yes [id number] TAKE 1 TABLET BY MOUTH TWICE DAILY NEEDED FOR MODERATE PAIN. Use sparingly due to side effects [facility] naproxen 500 mg tablet 06-06 00:00: 00 07-22 00:00 :00 No [id number] TAKE 1 TABLET BY MOUTH TWICE DAILY NEEDED FOR MODERATE PAIN. Use sparingly due to side effects [facility] ergocalcife rol, vitamin d2, (VITAMIN D2) 1,250 mcg (50,000 unit) capsule 06-01 00:00: 00 Yes [id number] Take 1 capsule by mouth weekly. [facility] sucralfate 1 gram tablet 06-01 00:00: 00 Yes [id number] 1g Take 1 tablet by mouth before meals and at bedtime. [facility] ferrous sulfate 324 mg (65 mg iron) EC tablet 06-01 00:00: 00 Yes [id number] 324mg Take 1 tablet by mouth daily with breakfast. [facility] ergocalcife rol, vitamin d2, (VITAMIN D2) 1,250 mcg (50,000 unit) capsule 06-01 00:00: 00 Yes [id number] Take 1 capsule by mouth weekly. [facility] sucralfate 1 gram tablet 06-01 00:00: 00 Yes [id number] 1g Take 1 tablet by mouth before meals and at bedtime. [facility] ferrous sulfate 324 mg (65 mg iron) EC tablet 06-01 00:00: 00 Yes [id number] 324mg Take 1 tablet by mouth daily with breakfast. [facility] ergocalcife rol, vitamin d2, (VITAMIN D2) 1,250 mcg (50,000 unit) capsule 06-01 00:00: 00 Yes [id number] Take 1 capsule by mouth weekly. [facility] ferrous sulfate 324 mg (65 mg iron) EC tablet 06-01 00:00: 00 Yes [id number] 324mg Take 1 tablet by mouth daily with breakfast. [facility] ferrous sulfate 324 mg (65 mg iron) EC tablet 06-01 00:00: 00 Yes [id number] 324mg Take 1 tablet by mouth daily with breakfast. [facility] ferrous sulfate 324 mg (65 mg iron) EC tablet 06-01 00:00: 00 Yes [id number] 324mg Take 1 tablet by mouth daily with breakfast. [facility] ferrous sulfate 324 mg (65 mg iron) EC tablet 06-01 00:00: 00 Yes [id number] 324mg Take 1 tablet by mouth daily with breakfast. [facility] ferrous sulfate 324 mg (65 mg iron) EC tablet 06-01 00:00: 00 Yes [id number] 324mg Take 1 tablet by mouth daily with breakfast. [facility] ferrous sulfate 324 mg (65 mg iron) EC tablet 06-01 00:00: 00 Yes [id number] 324mg Take 1 tablet by mouth daily with breakfast. [facility] ferrous sulfate 324 mg (65 mg iron) EC tablet 06-01 00:00: 00 Yes [id number] 324mg Take 1 tablet by mouth daily with breakfast. [facility] ferrous sulfate 324 mg (65 mg iron) EC tablet 06-01 00:00: 00 Yes [id number] 324mg Take 1 tablet by mouth daily with breakfast. [facility] ferrous sulfate 324 mg (65 mg iron) EC tablet 06-01 00:00: 00 Yes [id number] 324mg Take 1 tablet by mouth daily with breakfast. [facility] ferrous sulfate 324 mg (65 mg iron) EC tablet 06-01 00:00: 00 Yes [id number] 324mg Take 1 tablet by mouth daily with breakfast. [facility] ferrous sulfate 324 mg (65 mg iron) EC tablet 0 06-01 00:00: 00 Yes [id number] 324mg Take 1 tablet by mouth daily with breakfast. [facility] ferrous sulfate 324 mg (65 mg iron) EC tablet 0 06-01 00:00: 00 Yes [id number] 324mg Take 1 tablet by mouth daily with breakfast. [facility] ferrous sulfate 324 mg (65 mg iron) EC tablet 0 06-01 00:00: 00 Yes [id number] 324mg Take 1 tablet by mouth daily with breakfast. [facility] ferrous sulfate 324 mg (65 mg iron) EC tablet 0 06-01 00:00: 00 Yes [id number] 324mg Take 1 tablet by mouth daily with breakfast. [facility] ferrous sulfate 324 mg (65 mg iron) EC tablet 0 06-01 00:00: 00 Yes [id number] 324mg Take 1 tablet by mouth daily with breakfast. [facility] ferrous sulfate 324 mg (65 mg iron) EC tablet 0 06-01 00:00: 00 Yes [id number] 324mg Take 1 tablet by mouth daily with breakfast. [facility] ferrous sulfate 324 mg (65 mg iron) EC tablet 0 06-01 00:00: 00 Yes [id number] 324mg Take 1 tablet by mouth daily with breakfast. [facility] ferrous sulfate 324 mg (65 mg iron) EC tablet 0 06-01 00:00: 00 Yes [id number] 324mg Take 1 tablet by mouth daily with breakfast. [facility] ferrous sulfate 324 mg (65 mg iron) EC tablet 0 06-01 00:00: 00 Yes [id number] 324mg Take 1 tablet by mouth daily with breakfast. [facility] ferrous sulfate 324 mg (65 mg iron) EC tablet 0 06-01 00:00: 00 Yes [id number] 324mg Take 1 tablet by mouth daily with breakfast. [facility] ferrous sulfate 324 mg (65 mg iron) EC tablet 0 06-01 00:00: 00 Yes [id number] 324mg Take 1 tablet by mouth daily with breakfast. [facility] ferrous sulfate 324 mg (65 mg iron) EC tablet 0 06-01 00:00: 00 Yes [id number] 324mg Take 1 tablet by mouth daily with breakfast. [facility] ferrous [facility] 324 mg (65 mg iron) EC tablet 0 06-01 00:00: 00 Yes [id number] 324mg Take 1 tablet by mouth daily with breakfast. [facility] ferrous sulfate 324 mg (65 mg iron) EC tablet 0 06-01 00:00: 00 Yes [id number] 324mg Take 1 tablet by mouth daily with breakfast. [facility] ferrous sulfate 324 mg (65 mg iron) EC tablet 0 06-01 00:00: 00 Yes [id number] 324mg Take 1 tablet by mouth daily with breakfast. [facility] ferrous sulfate 324 mg (65 mg iron) EC tablet 0 06-01 00:00: 00 Yes [id number] 324mg Take 1 tablet by mouth daily with breakfast. [facility] ferrous sulfate 324 mg (65 mg iron) EC tablet 0 06-01 00:00: 00 Yes [id number] 324mg Take 1 tablet by mouth daily with breakfast. [facility] ferrous sulfate 324 mg (65 mg iron) EC tablet 0 06-01 00:00: 00 Yes [id number] 324mg Take 1 tablet by mouth daily with breakfast. [facility] ferrous sulfate 324 mg (65 mg iron) EC tablet 0 06-01 00:00: 00 Yes [id number] 324mg Take 1 tablet by mouth daily with breakfast. [facility] ferrous sulfate 324 mg (65 mg iron) EC tablet 0 06-01 00:00: 00 Yes [id number] 324mg Take 1 tablet by mouth daily with breakfast. [facility] ferrous sulfate 324 mg (65 mg iron) EC tablet 0 06-01 00:00: 00 Yes [id number] 324mg Take 1 tablet by mouth daily with breakfast. [facility] ferrous sulfate 324 mg (65 mg iron) EC tablet 0 06-01 00:00: 00 Yes [id number] 324mg Take 1 tablet by mouth daily with breakfast. [facility] ferrous sulfate 324 mg (65 mg iron) EC tablet 0 06-01 00:00: 00 Yes [id number] 324mg Take 1 tablet by mouth daily with breakfast. [facility] ferrous sulfate 324 mg (65 mg iron) EC tablet 0 06-01 00:00: 00 Yes [id number] 324mg Take 1 tablet by mouth daily with breakfast. [facility] ferrous sulfate 324 mg (65 mg iron) EC tablet 0 06-01 00:00: 00 Yes [id number] 324mg Take 1 tablet by mouth daily with breakfast. [facility] ferrous sulfate 324 mg (65 mg iron) EC tablet 0 06-01 00:00: 00 Yes [id number] 324mg Take 1 tablet by mouth daily with breakfast. [facility] ferrous sulfate 324 mg (65 mg iron) EC tablet 0 06-01 00:00: 00 Yes [id number] 324mg Take 1 tablet by mouth daily with breakfast. [facility] ferrous sulfate 324 mg (65 mg iron) EC tablet 0 06-01 00:00: 00 Yes [id number] 324mg Take 1 tablet by mouth daily with breakfast. [facility] ferrous sulfate 324 mg (65 mg iron) EC tablet 0 06-01 00:00: 00 Yes [id number] 324mg Take 1 tablet by mouth daily with breakfast. [facility] ferrous sulfate 324 mg (65 mg iron) EC tablet 0 06-01 00:00: 00 Yes [id number] 324mg Take 1 tablet by mouth daily with breakfast. [facility] ferrous sulfate 324 mg (65 mg iron) EC tablet 0 06-01 00:00: 00 Yes [id number] 324mg Take 1 tablet by mouth daily with breakfast. [facility] ferrous sulfate 324 mg (65 mg iron) EC tablet 0 06-01 00:00: 00 Yes [id number] 324mg Take 1 tablet by mouth daily with breakfast. [facility] ferrous sulfate 324 mg (65 mg iron) EC tablet 2021-0 06-01 00:00: 00 Yes [id number] 324mg Take 1 tablet by mouth daily with breakfast. [facility] ferrous sulfate 324 mg (65 mg iron) EC tablet 0 06-01 00:00: 00 Yes [id number] 324mg Take 1 tablet by mouth daily with breakfast. [facility] ferrous sulfate 324 mg (65 mg iron) EC tablet 0 06-01 00:00: 00 Yes [id number] 324mg Take 1 tablet by mouth daily with breakfast. [facility] ferrous sulfate 324 mg (65 mg iron) EC tablet 0 06-01 00:00: 00 Yes [id number] 324mg Take 1 tablet by mouth daily with breakfast. [facility] ferrous sulfate 324 mg (65 mg iron) EC tablet 0 06-01 00:00: 00 Yes [id number] 324mg Take 1 tablet by mouth daily with breakfast. [facility] ferrous sulfate 324 mg (65 mg iron) EC tablet 0 06-01 00:00: 00 Yes [id number] 324mg Take 1 tablet by mouth daily with breakfast. [facility] ferrous sulfate 324 mg (65 mg iron) EC tablet 0 06-01 00:00: 00 Yes [id number] 324mg Take 1 tablet by mouth daily with breakfast. [facility] ferrous sulfate 324 mg (65 mg iron) EC tablet 0 06-01 00:00: 00 Yes [id number] 324mg Take 1 tablet by mouth daily with breakfast. [facility] ferrous sulfate 324 mg (65 mg iron) EC tablet 2021-0 06-01 00:00: 00 Yes [id number] 324mg Take 1 tablet by mouth daily with breakfast. [facility] ferrous sulfate 324 mg (65 mg iron) EC tablet 2021-0 06-01 00:00: 00 Yes [id number] 324mg Take 1 tablet by mouth daily with breakfast. [facility] ferrous sulfate 324 mg (65 mg iron) EC tablet 2021-0 06-01 00:00: 00 Yes [id number] 324mg Take 1 tablet by mouth daily with breakfast. [facility] ferrous sulfate 324 mg (65 mg iron) EC tablet 06-01 00:00: 00 Yes [id number] 324mg Take 1 tablet by mouth daily with breakfast. [facility] ferrous sulfate 324 mg (65 mg iron) EC tablet 06-01 00:00: 00 Yes [id number] 324mg Take 1 tablet by mouth daily with breakfast. [facility] ferrous sulfate 324 mg (65 mg iron) EC tablet 06-01 00:00: 00 Yes [id number] 324mg Take 1 tablet by mouth daily with breakfast. [facility] ergocalcife rol, vitamin d2, (VITAMIN D2) 1,250 mcg (50,000 unit) capsule 06-01 00:00: 00 07-22 00:00 :00 No [id number] Take 1 capsule by mouth weekly. [facility] ergocalcife rol, vitamin d2, (VITAMIN D2) 1,250 mcg (50,000 unit) capsule 06-01 00:00: 00 07-22 00:00 :00 No [id number] Take 1 capsule by mouth weekly. [facility] sucralfate 1 gram tablet 06-01 00:00: 00 06-29 00:00 :00 No [id number] 1g Take 1 tablet by mouth before meals and at bedtime. [facility] sucralfate 1 gram tablet 06-01 00:00: 00 06-29 00:00 :00 No [id number] 1g Take 1 tablet by mouth before meals and at bedtime. [facility] PANTOPRAZOL E 40 mg EC tablet 05-31 00:00: 00 Yes [id number] TAKE 1 TABLET BY MOUTH IN THE MORNING AND IN THE EVENING [facility] PANTOPRAZOL E 40 mg EC tablet 05-31 00:00: 00 Yes [id number] TAKE 1 TABLET BY MOUTH IN THE MORNING AND IN THE EVENING [facility] PANTOPRAZOL E 40 mg EC tablet 05-31 00:00: 00 Yes [id number] TAKE 1 TABLET BY MOUTH IN THE MORNING AND IN THE EVENING [facility] PANTOPRAZOL E 40 mg EC tablet 05-31 00:00: 00 Yes [id number] TAKE 1 TABLET BY MOUTH IN THE MORNING AND IN THE EVENING [facility] PANTOPRAZOL E 40 mg EC tablet 05-31 00:00: 00 07-27 00:00 :00 No [id number] TAKE 1 TABLET BY MOUTH IN THE MORNING AND IN THE EVENING [facility] PANTOPRAZOL E 40 mg EC tablet 05-31 00:00: 00 07-27 00:00 :00 No [id number] TAKE 1 TABLET BY MOUTH IN THE MORNING AND IN THE EVENING [facility] PANTOPRAZOL E 40 mg EC tablet 05-31 00:00: 00 07-27 00:00 :00 No [id number] TAKE 1 TABLET BY MOUTH IN THE MORNING AND IN THE EVENING [facility] naproxen 500 mg tablet 05-07 00:00: 00 Yes [id number] TAKE 1 TABLET BY MOUTH TWICE DAILY NEEDED FOR MODERATE PAIN. Use sparingly due to side effects [facility] naproxen 500 mg tablet 05-07 00:00: 00 06-06 00:00 :00 No [id number] TAKE 1 TABLET BY MOUTH TWICE DAILY NEEDED FOR MODERATE PAIN. Use sparingly due to side effects [facility] naproxen 500 mg tablet 05-07 00:00: 00 06-06 00:00 :00 No [id number] TAKE 1 TABLET BY MOUTH TWICE DAILY NEEDED FOR MODERATE PAIN. Use sparingly due to side effects [facility] aspirin/steve icylamide/c affeine (BC HEADACHE POWDER ORAL) 05-05 13:34: 41 Yes Take by mouth 2 (two) times daily. [facility] aspirin/steve icylamide/c affeine (BC HEADACHE POWDER ORAL) 05-05 13:34: 41 Yes Take by mouth 2 (two) times daily. [facility] aspirin/steve icylamide/c affeine (BC HEADACHE POWDER ORAL) 05-05 13:34: 41 Yes Take by mouth 2 (two) times daily. [facility] aspirin/steve icylamide/c affeine (BC HEADACHE POWDER ORAL) 05-05 13:34: 41 Yes Take by mouth 2 (two) times daily. [facility] aspirin/steve icylamide/c affeine (BC HEADACHE POWDER ORAL) 05-05 13:34: 41 Yes Take by mouth 2 (two) times daily. [facility] aspirin/steve icylamide/c affeine (BC HEADACHE POWDER ORAL) 05-05 13:34: 41 Yes Take by mouth 2 (two) times daily. [facility] aspirin/steve icylamide/c affeine (BC HEADACHE POWDER ORAL) 05-05 13:34: 41 Yes Take by mouth 2 (two) times daily. [facility] aspirin/steve icylamide/c affeine (BC HEADACHE POWDER ORAL) 05-05 13:34: 41 Yes Take by mouth 2 (two) times daily. [facility] aspirin/steve icylamide/c affeine (BC HEADACHE POWDER ORAL) 05-05 13:34: 41 Yes Take by mouth 2 (two) times daily. [facility] aspirin/steve icylamide/c affeine (BC HEADACHE POWDER ORAL) 05-05 13:34: 41 Yes Take by mouth 2 (two) times daily. [facility] aspirin/steve icylamide/c affeine (BC HEADACHE POWDER ORAL) 05-05 13:34: 41 Yes Take by mouth 2 (two) times daily. [facility] aspirin/steve icylamide/c affeine (BC HEADACHE POWDER ORAL) 05-05 13:34: 41 Yes Take by mouth 2 (two) times daily. [facility] aspirin/steve icylamide/c affeine (BC HEADACHE POWDER ORAL) 05-05 13:34: 41 Yes Take by mouth 2 (two) times daily. [facility] aspirin/steve icylamide/c affeine (BC HEADACHE POWDER ORAL) 05-05 13:34: 41 Yes Take by mouth 2 (two) times daily. [facility] aspirin/steve icylamide/c affeine (BC HEADACHE POWDER ORAL) 05-05 13:34: 41 Yes Take by mouth 2 (two) times daily. [facility] aspirin/steve icylamide/c affeine (BC HEADACHE POWDER ORAL) 05-05 13:34: 41 Yes Take by mouth 2 (two) times daily. [facility] aspirin/steve icylamide/c affeine (BC HEADACHE POWDER ORAL) 05-05 13:34: 41 Yes Take by mouth 2 (two) times daily. [facility] pantoprazol e 40 mg EC tablet 11-30 00:00: 00 02-12 00:00 :00 No [id number] 40mg Take 1 tablet by mouth 2 (two) times daily. [facility] naproxen 500 mg tablet 11-13 00:00: 00 03-13 00:00 :00 No [id number] 500mg Take 1 tablet by mouth 2 (two) times daily as needed for Pain (scale 4-6). [facility] pantoprazol e 40 mg EC tablet 2020-10 00:00: 00 11-30 00:00 :00 No [id number] 40mg Take 1 tablet by mouth 2 (two) times daily. [facility] naproxen 500 mg tablet 2020-10 00:00: 00 10-16 00:00 :00 No [id number] 500mg Take 1 tablet by mouth 2 (two) times daily as needed for Pain (scale 4-6). [facility] HYDROcodone -acetaminop hen (NORCO) 5-325 mg tablet - 13:40: 07 07-04 00:00 :00 No 1{tbl} Take 1 tablet by mouth every 6 (six) hours as needed. [facility] sucralfate (CARAFATE) 1 gram tablet 04-06 00:00: 00 05-29 00:00 :00 No [id number] 1g Take 1 tablet by mouth before meals and at bedtime. [facility] pantoprazol e 40 mg EC tablet 04-05 00:00: 00 05-29 00:00 :00 No [id number] 40mg Take 1 tablet by mouth 2 (two) times daily. [facility] Immunizations Ordered Immunization Name Filled Immunization Name Date Status Comments Source Remdesivir 2022-05-04 00:00:00 Completed [facility] Remdesivir 2022-05-04 00:00:00 Completed [facility] Remdesivir 2022-05-04 00:00:00 Completed [facility] Remdesivir 2022-05-04 00:00:00 Completed [facility] Remdesivir 2022-05-04 00:00:00 Completed [facility] Remdesivir 2022-05-04 00:00:00 Completed [facility] Remdesivir 2022-05-04 00:00:00 Completed [facility] Remdesivir 2022-05-04 00:00:00 Completed [facility] Remdesivir 2022-05-04 00:00:00 Completed [facility] Remdesivir 2022-05-04 00:00:00 Completed [facility] Remdesivir 2022-05-04 00:00:00 Completed [facility] Remdesivir 2022-05-04 00:00:00 Completed [facility] Remdesivir 2022-05-04 00:00:00 Completed [facility] Remdesivir 2022-05-04 00:00:00 Completed [facility] Remdesivir 2022-05-04 00:00:00 Completed [facility] Remdesivir 2022-05-04 00:00:00 Completed [facility] Remdesivir 2022-05-04 00:00:00 Completed [facility] Remdesivir 2022-05-04 00:00:00 Completed [facility] Remdesivir 2022-05-04 00:00:00 Completed [facility] Remdesivir 2022-05-04 00:00:00 Completed [facility] Remdesivir 2022-05-04 00:00:00 Completed [facility] Remdesivir 2022-05-04 00:00:00 Completed [facility] Remdesivir 2022-05-04 00:00:00 Completed [facility] Remdesivir 2022-05-04 00:00:00 Completed [facility] Remdesivir 2022-05-04 00:00:00 Completed [facility] Remdesivir 2022-05-04 00:00:00 Completed [facility] Remdesivir 2022-05-04 00:00:00 Completed [facility] Remdesivir 2022-05-04 00:00:00 Completed [facility] Remdesivir 2022-05-04 00:00:00 Completed [facility] Remdesivir 2022-05-04 00:00:00 Completed [facility] Remdesivir 2022-05-04 00:00:00 Completed [facility] Remdesivir 2022-05-04 00:00:00 Completed [facility] Remdesivir 2022-05-04 00:00:00 Completed [facility] Remdesivir 2022-05-04 00:00:00 Completed [facility] Remdesivir 2022-05-04 00:00:00 Completed [facility] Remdesivir 2022-05-04 00:00:00 Completed [facility] Remdesivir 2022-05-04 00:00:00 Completed [facility] Remdesivir 2022-05-04 00:00:00 Completed [facility] Remdesivir 2022-05-04 00:00:00 Completed [facility] Remdesivir 2022-05-04 00:00:00 Completed [facility] Remdesivir 2022-05-04 00:00:00 Completed [facility] Remdesivir 2022-05-04 00:00:00 Completed [facility] Remdesivir 2022-05-04 00:00:00 Completed [facility] Remdesivir 2022-05-04 00:00:00 Completed [facility] Remdesivir 2022-05-04 00:00:00 Completed [facility] Remdesivir 2022-05-03 00:00:00 Completed [facility] Remdesivir 2022-05-03 00:00:00 Completed [facility] Remdesivir 2022-05-03 00:00:00 Completed [facility] Remdesivir 2022-05-03 00:00:00 Completed [facility] Remdesivir 2022-05-03 00:00:00 Completed [facility] Remdesivir 2022-05-03 00:00:00 Completed [facility] Remdesivir 2022-05-03 00:00:00 Completed [facility] Remdesivir 2022-05-03 00:00:00 Completed [facility] Remdesivir 2022-05-03 00:00:00 Completed [facility] Remdesivir 2022-05-03 00:00:00 Completed [facility] Remdesivir 2022-05-03 00:00:00 Completed [facility] Remdesivir 2022-05-03 00:00:00 Completed [facility] Remdesivir 2022-05-03 00:00:00 Completed [facility] Remdesivir 2022-05-03 00:00:00 Completed [facility] Remdesivir 2022-05-03 00:00:00 Completed [facility] Remdesivir 2022-05-03 00:00:00 Completed [facility] Remdesivir 2022-05-03 00:00:00 Completed [facility] Remdesivir 2022-05-03 00:00:00 Completed [facility] Remdesivir 2022-05-03 00:00:00 Completed [facility] Remdesivir 2022-05-03 00:00:00 Completed [facility] Remdesivir 2022-05-03 00:00:00 Completed [facility] Remdesivir 2022-05-03 00:00:00 Completed [facility] Remdesivir 2022-05-03 00:00:00 Completed [facility] Remdesivir 2022-05-03 00:00:00 Completed [facility] Remdesivir 2022-05-03 00:00:00 Completed [facility] Remdesivir 2022-05-03 00:00:00 Completed [facility] Remdesivir 2022-05-03 00:00:00 Completed [facility] Remdesivir 2022-05-03 00:00:00 Completed [facility] Remdesivir 2022-05-03 00:00:00 Completed [facility] Remdesivir 2022-05-03 00:00:00 Completed [facility] Remdesivir 2022-05-03 00:00:00 Completed [facility] Remdesivir 2022-05-03 00:00:00 Completed [facility] Remdesivir 2022-05-03 00:00:00 Completed [facility] Remdesivir 2022-05-03 00:00:00 Completed [facility] Remdesivir 2022-05-03 00:00:00 Completed [facility] Remdesivir 2022-05-03 00:00:00 Completed [facility] Remdesivir 2022-05-03 00:00:00 Completed [facility] Remdesivir 2022-05-03 00:00:00 Completed [facility] Remdesivir 2022-05-03 00:00:00 Completed [facility] Remdesivir 2022-05-03 00:00:00 Completed [facility] Remdesivir 2022-05-03 00:00:00 Completed [facility] Remdesivir 2022-05-03 00:00:00 Completed [facility] Remdesivir 2022-05-03 00:00:00 Completed [facility] Remdesivir 2022-05-03 00:00:00 Completed [facility] Remdesivir 2022-05-03 00:00:00 Completed [facility] Remdesivir 2022-05-02 00:00:00 Completed [facility] Remdesivir 2022-05-02 00:00:00 Completed [facility] Remdesivir 2022-05-02 00:00:00 Completed [facility] Remdesivir 2022-05-02 00:00:00 Completed [facility] Remdesivir 2022-05-02 00:00:00 Completed [facility] Remdesivir 2022-05-02 00:00:00 Completed [facility] Remdesivir 2022-05-02 00:00:00 Completed [facility] Remdesivir 2022-05-02 00:00:00 Completed [facility] Remdesivir 2022-05-02 00:00:00 Completed [facility] Remdesivir 2022-05-02 00:00:00 Completed [facility] Remdesivir 2022-05-02 00:00:00 Completed [facility] Remdesivir 2022-05-02 00:00:00 Completed [facility] Remdesivir 2022-05-02 00:00:00 Completed [facility] Remdesivir 2022-05-02 00:00:00 Completed [facility] Remdesivir 2022-05-02 00:00:00 Completed [facility] Remdesivir 2022-05-02 00:00:00 Completed [facility] Remdesivir 2022-05-02 00:00:00 Completed [facility] Remdesivir 2022-05-02 00:00:00 Completed [facility] Remdesivir 2022-05-02 00:00:00 Completed [facility] Remdesivir 2022-05-02 00:00:00 Completed [facility] Remdesivir 2022-05-02 00:00:00 Completed [facility] Remdesivir 2022-05-02 00:00:00 Completed [facility] Remdesivir 2022-05-02 00:00:00 Completed [facility] Remdesivir 2022-05-02 00:00:00 Completed [facility] Remdesivir 2022-05-02 00:00:00 Completed [facility] Remdesivir 2022-05-02 00:00:00 Completed [facility] Remdesivir 2022-05-02 00:00:00 Completed [facility] Remdesivir 2022-05-02 00:00:00 Completed [facility] Remdesivir 2022-05-02 00:00:00 Completed [facility] Remdesivir 2022-05-02 00:00:00 Completed [facility] Remdesivir 2022-05-02 00:00:00 Completed [facility] Remdesivir 2022-05-02 00:00:00 Completed [facility] Remdesivir 2022-05-02 00:00:00 Completed [facility] Remdesivir 2022-05-02 00:00:00 Completed [facility] Remdesivir 2022-05-02 00:00:00 Completed [facility] Remdesivir 2022-05-02 00:00:00 Completed [facility] Remdesivir 2022-05-02 00:00:00 Completed [facility] Remdesivir 2022-05-02 00:00:00 Completed [facility] Remdesivir 2022-05-02 00:00:00 Completed [facility] Remdesivir 2022-05-02 00:00:00 Completed [facility] Remdesivir 2022-05-02 00:00:00 Completed [facility] Remdesivir 2022-05-02 00:00:00 Completed [facility] Remdesivir 2022-05-02 00:00:00 Completed [facility] Remdesivir 2022-05-02 00:00:00 Completed [facility] Remdesivir 2022-05-02 00:00:00 Completed [facility] Remdesivir 2022-05-01 00:00:00 Completed [facility] Remdesivir 2022-05-01 00:00:00 Completed [facility] Remdesivir 2022-05-01 00:00:00 Completed [facility] Remdesivir 2022-05-01 00:00:00 Completed [facility] Remdesivir 2022-05-01 00:00:00 Completed [facility] Remdesivir 2022-05-01 00:00:00 Completed [facility] Remdesivir 2022-05-01 00:00:00 Completed [facility] Remdesivir 2022-05-01 00:00:00 Completed [facility] Remdesivir 2022-05-01 00:00:00 Completed [facility] Remdesivir 2022-05-01 00:00:00 Completed [facility] Remdesivir 2022-05-01 00:00:00 Completed [facility] Remdesivir 2022-05-01 00:00:00 Completed [facility] Remdesivir 2022-05-01 00:00:00 Completed [facility] Remdesivir 2022-05-01 00:00:00 Completed [facility] Remdesivir 2022-05-01 00:00:00 Completed [facility] Remdesivir 2022-05-01 00:00:00 Completed [facility] Remdesivir 2022-05-01 00:00:00 Completed [facility] Remdesivir 2022-05-01 00:00:00 Completed [facility] Remdesivir 2022-05-01 00:00:00 Completed [facility] Remdesivir 2022-05-01 00:00:00 Completed [facility] Remdesivir 2022-05-01 00:00:00 Completed [facility] Remdesivir 2022-05-01 00:00:00 Completed [facility] Remdesivir 2022-05-01 00:00:00 Completed [facility] Remdesivir 2022-05-01 00:00:00 Completed [facility] Remdesivir 2022-05-01 00:00:00 Completed [facility] Remdesivir 2022-05-01 00:00:00 Completed [facility] Remdesivir 2022-05-01 00:00:00 Completed [facility] Remdesivir 2022-05-01 00:00:00 Completed [facility] Remdesivir 2022-05-01 00:00:00 Completed [facility] Remdesivir 2022-05-01 00:00:00 Completed [facility] Remdesivir 2022-05-01 00:00:00 Completed [facility] Remdesivir 2022-05-01 00:00:00 Completed [facility] Remdesivir 2022-05-01 00:00:00 Completed [facility] Remdesivir 2022-05-01 00:00:00 Completed [facility] Remdesivir 2022-05-01 00:00:00 Completed [facility] Remdesivir 2022-05-01 00:00:00 Completed [facility] Remdesivir 2022-05-01 00:00:00 Completed [facility] Remdesivir 2022-05-01 00:00:00 Completed [facility] Remdesivir 2022-05-01 00:00:00 Completed [facility] Remdesivir 2022-05-01 00:00:00 Completed [facility] Remdesivir 2022-05-01 00:00:00 Completed [facility] Remdesivir 2022-05-01 00:00:00 Completed [facility] Remdesivir 2022-05-01 00:00:00 Completed [facility] Remdesivir 2022-05-01 00:00:00 Completed [facility] Remdesivir 2022-05-01 00:00:00 Completed [facility] Remdesivir 2022-04-30 00:00:00 Completed [facility] Remdesivir 2022-04-30 00:00:00 Completed [facility] Remdesivir 2022-04-30 00:00:00 Completed [facility] Remdesivir 2022-04-30 00:00:00 Completed [facility] Remdesivir 2022-04-30 00:00:00 Completed [facility] Remdesivir 2022-04-30 00:00:00 Completed [facility] Remdesivir 2022-04-30 00:00:00 Completed [facility] Remdesivir 2022-04-30 00:00:00 Completed [facility] Remdesivir 2022-04-30 00:00:00 Completed [facility] Remdesivir 2022-04-30 00:00:00 Completed [facility] Remdesivir 2022-04-30 00:00:00 Completed [facility] Remdesivir 2022-04-30 00:00:00 Completed [facility] Remdesivir 2022-04-30 00:00:00 Completed [facility] Remdesivir 2022-04-30 00:00:00 Completed [facility] Remdesivir 2022-04-30 00:00:00 Completed [facility] Remdesivir 2022-04-30 00:00:00 Completed [facility] Remdesivir 2022-04-30 00:00:00 Completed [facility] Remdesivir 2022-04-30 00:00:00 Completed [facility] Remdesivir 2022-04-30 00:00:00 Completed [facility] Remdesivir 2022-04-30 00:00:00 Completed [facility] Remdesivir 2022-04-30 00:00:00 Completed [facility] Remdesivir 2022-04-30 00:00:00 Completed [facility] Remdesivir 2022-04-30 00:00:00 Completed [facility] Remdesivir 2022-04-30 00:00:00 Completed [facility] Remdesivir 2022-04-30 00:00:00 Completed [facility] Remdesivir 2022-04-30 00:00:00 Completed [facility] Remdesivir 2022-04-30 00:00:00 Completed [facility] Remdesivir 2022-04-30 00:00:00 Completed [facility] Remdesivir 2022-04-30 00:00:00 Completed [facility] Remdesivir 2022-04-30 00:00:00 Completed [facility] Remdesivir 2022-04-30 00:00:00 Completed [facility] Remdesivir 2022-04-30 00:00:00 Completed [facility] Remdesivir 2022-04-30 00:00:00 Completed [facility] Remdesivir 2022-04-30 00:00:00 Completed [facility] Remdesivir 2022-04-30 00:00:00 Completed [facility] Remdesivir 2022-04-30 00:00:00 Completed [facility] Remdesivir 2022-04-30 00:00:00 Completed [facility] Remdesivir 2022-04-30 00:00:00 Completed [facility] Remdesivir 2022-04-30 00:00:00 Completed [facility] Remdesivir 2022-04-30 00:00:00 Completed [facility] Remdesivir 2022-04-30 00:00:00 Completed [facility] Remdesivir 2022-04-30 00:00:00 Completed [facility] Remdesivir 2022-04-30 00:00:00 Completed [facility] Remdesivir 2022-04-30 00:00:00 Completed [facility] Remdesivir 2022-04-30 00:00:00 Completed [facility] Td 2016-02-26 00:00:00 Completed [facility] Td 2016-02-26 00:00:00 Completed [facility] Td 2016-02-26 00:00:00 Completed [facility] Td 2016-02-26 00:00:00 Completed [facility] Td 2016-02-26 00:00:00 Completed [facility] Td 2016-02-26 00:00:00 Completed [facility] Td 2016-02-26 00:00:00 Completed [facility] Td 2016-02-26 00:00:00 Completed [facility] Td 2016-02-26 00:00:00 Completed [facility] Td 2016-02-26 00:00:00 Completed [facility] Td 2016-02-26 00:00:00 Completed [facility] TD, NOS 2016-02-26 00:00:00 Completed [facility] TD, NOS 2016-02-26 00:00:00 Completed [facility] TD, NOS 2016-02-26 00:00:00 Completed [facility] TD, NOS 2016-02-26 00:00:00 Completed [facility] TD, NOS 2016-02-26 00:00:00 Completed [facility] TD, NOS 2016-02-26 00:00:00 Completed [facility] TD, NOS 2016-02-26 00:00:00 Completed [facility] TD, NOS 2016-02-26 00:00:00 Completed [facility] TD, NOS 2016-02-26 00:00:00 Completed [facility] TD, NOS 2016-02-26 00:00:00 Completed [facility] TD, NOS 2016-02-26 00:00:00 Completed [facility] TD, NOS 2016-02-26 00:00:00 Completed [facility] TD, NOS 2016-02-26 00:00:00 Completed [facility] TD, NOS 2016-02-26 00:00:00 Completed [facility] TD, NOS 2016-02-26 00:00:00 Completed [facility] TD, NOS 2016-02-26 00:00:00 Completed [facility] TD, NOS 2016-02-26 00:00:00 Completed [facility] TD, NOS 2016-02-26 00:00:00 Completed [facility] TD, NOS 2016-02-26 00:00:00 Completed [facility] TD, NOS 2016-02-26 00:00:00 Completed [facility] TD, NOS 2016-02-26 00:00:00 Completed [facility] TD, NOS 2016-02-26 00:00:00 Completed [facility] TD, NOS 2016-02-26 00:00:00 Completed [facility] TD, NOS 2016-02-26 00:00:00 Completed [facility] TD, NOS 2016-02-26 00:00:00 Completed [facility] TD, NOS 2016-02-26 00:00:00 Completed [facility] TD, NOS 2016-02-26 00:00:00 Completed [facility] TD, NOS 2016-02-26 00:00:00 Completed [facility] TD, NOS 2016-02-26 00:00:00 Completed [facility] TD, NOS 2016-02-26 00:00:00 Completed [facility] TD, NOS 2016-02-26 00:00:00 Completed [facility] TD, NOS 2016-02-26 00:00:00 Completed [facility] TD, NOS 2016-02-26 00:00:00 Completed [facility] TD, NOS 2016-02-26 00:00:00 Completed [facility] TD, NOS Unknown Completed [facility] Remdesivir Unknown Completed [facility] Remdesivir Unknown Completed [facility] Remdesivir Unknown Completed [facility] Rem[facility] Unknown Com[facility] Remdesivir Unknown Completed [facility] TD, NOS Unknown Completed [facility] Remdesivir Unknown Completed [facility] Remdesivir Unknown [facility]pleted [facility] Remdesivir Unknown Completed [facility] Remdesivir Unknown Completed [facility] Remdesivir Unknown Completed [facility] TD, NOS Unknown Completed [facility] Remdesivir Unknown Completed [facility] Remdesivir Unknown Completed [facility] Remdesivir Unknown Completed [facility] Remdesivir Unknown Completed [facility] Remdesivir Unknown Completed [facility] TD, NOS Unknown Completed [facility] Remdesivir Unknown Completed [facility] Remdesivir Unknown Completed [facility] Remdesivir Unknown Completed [facility] Remdesivir Unknown Completed [facility] Remdesivir Unknown Completed [facility] TD, NOS Unknown Completed [facility] Remdesivir Unknown Completed [facility] Remdesivir Unknown Completed [facility] Remdesivir Unknown [facility]pleted [facility] Remdesivir Unknown Completed [facility] Remdesivir Unknown Completed [facility] TD, NOS Unknown Completed [facility] TD, NOS Unknown Completed [facility] TD, NOS Unknown Completed [facility] [place] TD, NOS Unknown Completed [facility] [place] TD, NOS Unknown Completed [facility] Remdesivir Unknown Completed [facility] Remdesivir Unknown [facility]pleted [facility] Remdesivir Unknown Completed [facility] Remdesivir Unknown Completed [facility] Remdesivir Unknown Completed [facility] TD, NOS Unknown Completed [facility] Remdesivir Unknown Completed [facility] Remdesivir Unknown Completed [facility] Remdesivir Unknown Completed [facility] Remdesivir Unknown Completed [facility] Remdesivir Unknown Completed [facility] TD, NOS Unknown Completed [facility] Remdesivir Unknown Completed [facility] Remdesivir Unknown Completed [facility] Remdesivir Unknown Completed [facility] Remdesivir Unknown Completed [facility] Remdesivir Unknown Completed [facility] TD, NOS Unknown Completed [facility] Remdesivir Unknown Completed [facility] Remdesivir Unknown Completed [facility] Remdesivir Unknown Completed [facility] Remdesivir Unknown Completed [facility] Remdesivir Unknown Completed [facility] TD, NOS Unknown Completed [facility] Remdesivir Unknown Completed [facility] Remdesivir Unknown Completed [facility] Remdesivir Unknown Completed [facility] Remdesivir Unknown Completed [facility] Remdesivir Unknown Completed [facility] TD, NOS Unknown Completed [facility] Remdesivir Unknown Completed [facility] Remdesivir Unknown Completed [facility] Remdesivir Unknown Completed [facility] Remdesivir Unknown Completed [facility] Remdesivir Unknown Completed [facility] TD, NOS Unknown Completed [facility] Remdesivir Unknown Completed [facility] Remdesivir Unknown [facility]pleted [facility] Remdesivir Unknown Completed [facility] Remdesivir Unknown Completed [facility] Remdesivir Unknown Completed [facility] TD, NOS Unknown Completed [facility] Remdesivir Unknown Completed [facility] Remdesivir Unknown [facility]pleted [facility] Remdesivir Unknown Completed [facility] Remdesivir Unknown Completed [facility] Rem[facility]ivir Unknown [facility] [place] Vital Signs Vital Name Observation Time Observation Value Comments S edwin Systolic blood pressure 2023-06-24 21:36:00 108 mm[Hg] [facility] Diastolic blood pressure 2023-06-24 21:36:00 77 mm[Hg] [place] [facility] Heart rate 2023-06-24 21:36:00 124 /min [facility] 2023-06-24 21:36:00 154.9 cm [facility] Body weight 2023-06-24 21:36:00 50.758 kg [facility] BMI 2023-06-24 21:36:00 21.14 kg/m2 [facility] Oxygen saturation in Arterial blood by Pulse oximetry 2023-06-24 21:36:00 100 /min [facility] Systolic blood pressure 2023-01-02 16:25:00 123 mm[Hg] [facility] Diastolic blood pressure 2023-01-02 16:25:00 81 mm[Hg] [facility] Heart rate 2023-01-02 16:25:00 85 /min Un[facility] Body temperature 2023-01-02 16:25:00 37.17 Colette [facility] Respiratory rate 2023-01-02 16:25:00 18 /min [facility] Oxygen saturation in Arterial blood by Pulse oximetry 2023-01-02 16:25:00 99 /min [facility] Body weight 2023-01-01 23:30:00 48.353 kg [facility] BMI 2023-01-01 23:30:00 18.30 kg/m2 [facility] Body height 2022-12-31 03:57:00 162.6 cm [facility] Systolic blood pressure 2023-01-01 14:00:00 115 mm[Hg] [facility] Diastolic blood pressure 2023-01-01 14:00:00 75 mm[Hg] [facility] Heart rate 2023-01-01 14:00:00 72 /min [facility] Respiratory rate 2023-01-01 14:00:00 12 /min [facility] Oxygen saturation in Arterial blood by Pulse oximetry 2023-01-01 14:00:00 95 /min [facility] Body temperature 2023-01-01 13:54:00 36.39 Colette [facility] Body height 2022-12-31 03:57:00 162.6 cm [facility] Body weight 2022-12-31 03:57:00 49.5 kg [facility] BMI 2022-12-31 03:57:00 18.30 kg/m2 [facility] Systolic blood pressure 2022-11-30 16:24:00 123 mm[Hg] [facility] Diastolic blood pressure 2022-11-30 16:24:00 85 mm[Hg] [facility] Heart rate 2022-11-30 16:24:00 93 /min Un[facility] Body height 2022-11-30 16:24:00 162.6 cm [facility] Body weight 2022-11-30 16:24:00 46.72 kg [facility] BMI 2022-11-30 16:24:00 17.68 kg/m2 [facility] Oxygen saturation in Arterial blood by Pulse oximetry 2022-11-30 16:24:00 100 /min [facility] Systolic blood pressure 2022-07-27 18:27:00 116 mm[Hg] [facility] Diastolic blood pressure 2022-07-27 18:27:00 83 mm[Hg] [facility] Heart rate 2022-07-27 18:27:00 107 /min Unive [facility] Body height 2022-07-27 18:27:00 162.6 cm [facility] Body weight 2022-07-27 18:27:00 47.854 kg [facility] BMI 2022-07-27 18:27:00 18.11 kg/m2 [facility] Oxygen saturation in Arterial blood by Pulse oximetry 2022-07-27 18:27:00 97 /min [facility] Systolic blood pressure 2022-06-01 16:42:00 114 mm[Hg] [facility] Diastolic blood pressure 2022-06-01 16:42:00 80 mm[Hg] [facility] Heart rate 2022-06-01 16:42:00 103 /min Unive [facility] Body temperature 2022-06-01 16:42:00 36.61 Colette [facility] Body height 2022-06-01 16:42:00 162.6 cm [facility] Body weight 2022-06-01 16:42:00 51.03 kg [facility] BMI 2022-06-01 16:42:00 19.31 kg/m2 [facility] Oxygen saturation in Arterial blood by Pulse oximetry 2022-06-01 16:42:00 97 /min [place] [facility] Procedures Procedure Date / Time Performed Performing Clinician Source EXTERNAL PROVIDER RECORDS 2023-01-09 05:01:00 Doctor Unassigned, Veyo [facility] PHOSPHORUS 2023-01-02 08:59:00 [facility] 2023-01-02 08:59:00 Dasha Browne [facility] HEPATIC FUNCTION PANEL (8007 6) (ALB,T.PRO,BILI T,BU/BC,ALT,AST,ALK PHOS) 2023-01-02 08:59:00 [facility] BASIC METABOLIC PANEL (NA, K , CL, CO2, GLUCOSE, BUN, CREATININE, CA) 2023-01-02 08:59:00 Dasha Browne [facility] CBC WITH DIFF 2023-01-02 08:59:00 Dasha Browne [facility] PROTHROMBIN TIME / INR 2023-01-02 08:59:00 Anthony Leiva [facility] ACTIVATED PARTIAL THRMPLAS GARO 2022-12-13 2 08:59:00 Mari Mcfadden [facility] FIBRINOGEN 2023-01-02 08:59:00 Anthony Leiva [facility] PHOSPHORUS 2023-01-02 08:59:00 [facility] 2023-01-02 08:59:00 Dasha Browne [facility] HEPATIC FUNCTION PANEL (8007 6) (ALB,T.PRO,BILI T,BU/BC,ALT,AST,ALK PHOS) 2023-01-02 08:59:00 [facility] BASIC METABOLIC PANEL (NA, K , CL, CO2, GLUCOSE, BUN, CREATININE, CA) 2023-01-02 08:59:00 Pavan [facility] CBC WITH DIFF 2023-01-02 08:59:00 Pavan [facility] PROTHROMBIN TIME / INR 2023-01-02 08:59:00 [facility] ACTIVATED PARTIAL THRMPLAS GARO 2022-12-13 2 08:59:00 [facility] 2023-01-02 08:59:00 Anthony Leiva [facility] CBC WITH DIFF 2023-01-01 16:25:00 Anthony Leiva [facility] CBC WITH DIFF 2023-01-01 16:25:00 Anthony Leiva [facility] EGD (ENDO) 2023-01-01 14:53:20 Person, [facility] EGD (ENDO) 2023-01-01 14:53:20 Person, [facility] ESOPHAGOGASTRODUODENOSCOPY 2023-01-01 14:36:00 She [facility] ESOPHAGOGASTRODUODENOSCOPY 2023-01-01 14:36:00 She [facility] PREPARE PACKED RBC 2023-01-01 12:28:32 Shilpa Barbosa [facility] PREPARE PACKED RBC 2023-01-01 12:28:32 Shilpa Barbosa [facility] TRANSFUSE PACKED RBC 2023-01-01 11:25:00 Anthony Leiva [facility] TRANSFUSE PACKED RBC 2023-01-01 11:25:00 Anthony Leiva [facility] PREPARE PACKED RBC 2023-01-01 11:08:21 Anthony Leiva [facility] PREPARE PACKED RBC 2023-01-01 11:08:21 Anthony Leiva [facility] PHOSPHORUS 2023-01-01 08:38:00 Anthony Leiva [facility] MAGNESIUM 2023-01-01 08:38:00 Anthony Leiva [facility] HEPATIC FUNCTION PANEL (8007 6) (ALB,T.PRO,BILI T,BU/BC,ALT,AST,ALK PHOS) 2023-01-01 08:38:00 Anthony Leiva [facility] BASIC METABOLIC PANEL (NA, K , CL, CO2, GLUCOSE, BUN, CREATININE, CA) 2023-01-01 08:38:00 Anthony Leiva [facility] CBC WITH DIFF 2023-01-01 08:38:00 Anthony Leiva [facility] PROTHROMBIN TIME / INR 2023-01-01 08:38:00 Anthony Leiva [facility] ACTIVATED PARTIAL THRMPLAS GARO 2022-12-13 1 08:38:00 Anthony Leiva [facility] FIBRINOGEN 2023-01-01 08:38:00 Anthony Leiva [facility] PHOSPHORUS 2023-01-01 08:38:00 Anthony Leiva [facility] MAGNESIUM 2023-01-01 08:38:00 Anthony Leiva [facility] HEPATIC FUNCTION PANEL (8007 6) (ALB,T.PRO,BILI T,BU/BC,ALT,AST,ALK PHOS) 2023-01-01 08:38:00 Anthony Leiva [facility] BASIC METABOLIC PANEL (NA, K , CL, CO2, GLUCOSE, BUN, CREATININE, CA) 2023-01-01 08:38:00 Anthony Leiva [facility] CBC WITH DIFF 2023-01-01 08:38:00 Anthony Leiva [facility] PROTHROMBIN TIME / INR 2023-01-01 08:38:00 [facility] PARTIAL THRMPLAS GARO 2022-12-13 1 08:38:00 Anthony Leiva [facility] FIBRINOGEN 2023-01-01 08:38:00 [facility]IN 2022-12-31 20:26:00 [facility] CBC WITH DIFF 2022-12-31 20:26:00 [facility] TISSUE TRANSGLUTAMINASE (TTG) IGA 2022-0 - 20:26:00 [facility] TRANSFERR[facility] 2022-12-31 20:26:00 Anthony Leiva [facility] CBC WITH DIFF 2022-12-31 20:26:00 Vadeena [facility] TISSUE TRANSGLUTAMINASE (TTG) IGA 2022-0 12-31 20:26:00 Anthony Leiva [facility] PHOSPHORUS 2022-12-31 11:02:00 Rigoberto [facility] MAGNESIUM 2022-12-31 11:02:00 Guba, [facility] FERRITIN SERUM 2022-12-31 11:02:00 Anthony Leiva [facility] IRON 2022-12-31 11:02:00 Anthony Leiva [facility] BASIC METABOLIC PANEL (NA, K , CL, CO2, GLUCOSE, BUN, CREATININE, CA) 2022-12-31 11:02:00 Soham, [facility] CBC WITH DIFF 2022-12-31 11:02:00 Guba, [facility] PHOSPHORUS 2022-12-31 11:02:00 Guba, [facility] MAGNESIUM 2022-12-31 11:02:00 Guba, [facility] FERRITIN SERUM 2022-12-31 11:02:00 Anthony Leiva [facility] IRON 2022-12-31 11:02:00 Anthony Leiva [facility] BASIC METABOLIC PANEL (NA, K , CL, CO2, GLUCOSE, BUN, CREATININE, CA) 2022-12-31 11:02:00 Guba, [facility] CBC WITH DIFF 2022-12-31 11:02:00 Guba, [facility] TRANSFUSE PACKED RBC 2022-12-31 06:15:00 [facility] TRANSFUSE PACKED RBC 2022-12-31 06:15:00 [facility] PREPARE PACKED RBC 2022-12-31 05:50:01 [facility] PREPARE PACKED RBC 2022-12-31 05:50:01 Rigoberto [facility] GASTRIN 2022-12-31 04:24:00 [facility] PHOSPHORUS 2022-12-31 04:24:00 [facility] MAGNESIUM 2022-12-31 04:24:00 [facility] BASIC METABOLIC PANEL (NA, K , CL, CO2, GLUCOSE, BUN, CREATININE, CA) 2022-12-31 04:24:00 alexandria [facility] CBC WITH DIFF 2022-12-31 04:24:00 [facility] PROTHROMBIN TIME / INR 2022-12-31 04:24:00 [facility] ACTIVATED PARTIAL THRMPLAS GARO 2 0 04:24:00 [facility] MRSA / MSSA SCREEN BY PCRANGIE 2022-12 04:24:00 alexandria [facility] GASTRIN 2022-12-31 04:24:00 alexandria [facility] PHOSPHORUS 2022-12-31 04:24:00 Rigoberto [facility] MAGNESIUM 2022-12-31 04:24:00 [facility] BASIC METABOLIC PANEL (NA, K , CL, CO2, GLUCOSE, BUN, CREATININE, CA) 2022-12-31 04:24:00 alexandria [facility] CBC WITH DIFF 2022-12-31 04:24:00 [facility] PROTHROMBIN TIME / INR 2022-12-31 04:24:00 [facility], [facility] ACTIVATED PARTIAL THRMPLAS GARO 2 0 04:24:00 [facility] MRSA / MSSA SCREEN BY PCR, ANGIE 2022-12 04:24:00 Rigoberto Herrera [facility] XR KUB 2022-12-31 02:49:25 Singer [facility] XR KUB 2022-12-31 02:49:25 Singer Bigg [facility] TRANSFUSE PACKED RBC 2022-12-31 02:03:00 Shilpa Barbosa [facility] TRANSFUSE PACKED RBC 2022-12-31 02:03:00 Shilpa Barbosa [facility] XR CHEST 1 VW 2022-12-31 01:26:44 Shilpa Barbosa [facility] XR CHEST 1 VW 2022-12-31 01:26:44 Shilpa Barbosa [facility] CT ANGIOGRAM ABDOMEN/PELVIS 2022-12-31 01:25:42 Shilpa Barbosa [facility] CT ANGIOGRAM ABDOMEN/PELVIS 2022-12-31 01:25:42 Shilpa Barbosa [facility] POCT TEST 2022-12-31 00:56:00 Shilpa Barbosa [facility] POCT TEST 2022-12-31 00:56:00 Shilpa Barbosa [facility] HB ABO GROUPING 2022-12-31 00:42:00 Shilpa Barbosa [facility] HB ABO GROUPING 2022-12-31 00:42:00 Shilpa Barbosa [facility] URINALYSIS 2022-12-31 00:26:00 Shilpa Barbosa [facility] URINALYSIS 2022-12-31 00:26:00 Shilpa Barbosa [facility] LIPASE 2022-12-30 23:11:00 Shilpa Barbosa [facility] MAGNESIUM 2022-12-30 23:11:00 Shilpa Barbosa [facility] COMP. METABOLIC PANEL (61977) 2022-12-30 23:11:00 Familia Shilpa Dinorah [facility] CBC WITH DIFF 2022-12-30 23:11:00 Shilpa Barbosa Dinorah [facility] LIPASE 2022-12-30 23:11:00 PaulShilpa garcia [facility] MAGNESIUM 2022-12-30 23:11:00 PaulShilpa garcia [facility] COMP. METABOLIC PANEL (11026) 2022-12-30 23:11:00 Paulmarycarmenel Cherellecliffnestor Dinorah [facility] CBC WITH DIFF 2022-12-30 23:11:00 PaulmarycarmenelShilpa [facility] HOSPITAL ADMISSION 2022-12-30 05:01:00 Doctor Unassigned, Veyo [facility] HOSPITAL ADMISSION 2022-12-30 05:01:00 Doctor Unassigned, Veyo [facility] ENDOSCOPY PROCEDURE DOCUMENTATION 12-30 05:01:00 Doctor Unassigned, Veyo [facility] CBC WITH DIFF 2022-06-01 17:35:00 Dorota Sawyer [facility] Encounters Start Date/Time End Date/Time Encounter Type Admission Type Attending [facility] Care Facility Care Department Encounter ID Source 2021-08-14 11:29:47 Outpatient JEMIMA LEAL [facility] [id number] [facility] 2021-08-11 17:24:29 Outpatient ANDREW CASTAÑEDA [facility] [id number] [facility] 2021-08-10 23:51:50 Emergency [facility] [id number] [facility] 2023-10-03 00:00:00 2023-10-03 00:00:00 Telephone [facility] [id number] 350.1.13.10 4.2.7.2.686 [id number] [facility] 2023-09-30 00:00:00 2023-09-30 00:00:00 [facility] 1.2840.114 350.1.13.10 4.2.7.2.686 [id number] [facility] 2023-09-30 00:00:00 2023-09-30 00:00:00 Refill Tucker Arambula [facility] CRISTA PATEL?[facility] 1.2840.114 350.1.13.10 4.2.7.2.686 [id number] [facility] 2023-09-14 00:00:00 2023-09-14 00:00:00 [facility] 1.2.114 350.1.13.10 4.2.7.2.686 [id number] [facility] 2023-09-09 11:15:00 2023-09-09 11:15:00 Outpatient R [facility] [id number] [facility] 2023-08-13 00:00:00 2023-08-13 00:00:00 [facility] 1.114 350.1.13.10 4.2.7.2.686 [id number] [facility] 2023-07-23 00:00:00 2023-07-23 00:00:00 [facility] 1.0.114 350.1.13.10 4.2.7.2.686 [id number] [facility] 2023-07-16 00:00:00 2023-07-16 00:00:00 [facility] 1.2840.114 350.1.13.10 4.2.7.2.686 [id number] [facility] 2023-07-15 00:00:00 2023-07-15 00:00:00 [facility]ill [facility] 1.84.114 350.1.13.10 4.2.7.2.686 [id number] [facility] 2023-06-24 16:30:00 2023-06-24 17:29:16 Outpatient R TUCKER ARAMBULA [facility] [id number] [facility] 2023-06-24 16:30:00 2023-06-24 17:29:16 Office [facility] 1.84.114 350.1.13.10 4.2.7.2.686 [id number] [facility] 2023-06-20 10:00:00 2023-06-20 10:00:00 Outpatient R [facility] [id number] [facility] 2023-06-18 00:00:00 2023-06-18 00:00:00 Refill Tucker [facility] 1.84.114 350.1.13.10 4.2.7.2.686 [id number] [facility] 2023-06-17 00:00:00 2023-06-17 00:00:00 Refill Gardenia [facility] 1.84.114 350.1.13.10 4.2.7.2.686 [id number] [facility] 2023-06-12 00:00:00 2023-06-12 00:00:00 [facility] 1.84114 350.1.13.10 4.2.7.2.686 [id number] [facility] 2023-06-03 11:30:00 2023-06-03 11:30:00 Outpatient Hardik ARAMBULA TUCKER [facility] [id number] [facility] 2023-05-28 00:00:00 2023-05-28 00:00:00 Emanuel Gardenia [facility] 1.114 350.1.13.10 4.2.7.2.686 [id number] [facility] 2023-04-09 09:30:00 2023-04-09 09:30:00 Outpatient ANDREW CASTAÑEDA [facility] [id number] [facility] 2023-03-19 00:00:00 2023-03-19 00:00:00 Patient Secure Msg Elizabeth Crook [facility] 1.114 350.1.13.10 4.2.7.2.686 [id number] [facility] 2023-03-18 15:45:00 2023-03-18 16:00:00 Traffic Analysis Technician Visit Vtc[facility]Mem[facility] Gardner [facility] 1.114 350.1.13.10 4.2.7.2.686 [id number] [facility] 2023-03-18 14:30:00 2023-03-18 15:30:54 Outpatient MEME CROWE [facility] [id number] [facility] 2023-03-18 14:30:00 2023-03-18 15:30:54 Office Visit Elizabeth Crook Kathleen [facility] 1.114 350.1.13.10 4.2.7.2.686 [id number] [facility] 2023-03-01 00:00:00 2023-03-01 00:00:00 [facility] 1.2840.114 350.1.13.10 4.2.7.2.686 [id number] [facility] 2023-02-27 00:00:00 2023-02-27 00:00:00 [facility]ill [facility]GE?[facility] 1.0.114 350.1.13.10 4.2.7.2.686 [id number] [facility] 2023-02-26 00:00:00 2023-02-26 00:00:00 Telephone José Manuel Hendrickson [facility] 1.0.114 350.1.13.10 4.2.7.2.686 [id number] [facility] 2023-01-29 00:00:00 2023-01-29 00:00:00 [facility]..114 350.1.13.10 4.2.7.2.686 [id number] [facility] 2023-01-18 00:00:00 2023-01-18 00:00:00 [facility] 1..114 350.1.13.10 4.2.7.2.686 [id number] [facility] 2023-01-18 00:00:00 2023-01-18 00:00:00 Refill [facility]GE?[facility] 1.20.114 350.1.13.10 4.2.7.2.686 [id number] [facility] 2023-01-17 00:00:00 2023-01-17 00:00:00 Refill [facility] 1.840.114 350.1.13.10 4.2.7.2.686 [id number] [facility] 2023-01-16 14:00:00 2023-01-16 14:15:00 Office Visit Shruthi Wise Kathleen [facility] 1.114 350.1.13.10 4.2.7.2.686 [id number] [facility] 2023-01-16 14:00:00 2023-01-16 14:00:00 Outpatient R MEME VANEGAS [facility] [id number] [facility] 2023-01-11 00:00:00 2023-01-11 00:00:00 Telephone José Manuel Hendrickson [facility] .114 350.1.13.10 4.2.7.2.686 [id number] [facility] 2023-01-11 00:00:00 2023-01-11 00:00:00 Telephone Brittany [facility] 1.84114 350.1.13.10 4.2.7.2.686 [id number] [facility] 2023-01-09 00:00:00 2023-01-09 00:00:00 Orders Only Doctor Unassigned, Veyo [facility] 1.0.114 350.1.13.10 4.2.7.2.686 [id number] [facility] 2023-01-06 00:00:00 2023-01-06 00:00:00 Patient Secure Msg Chuck Phan [facility] 1.114 350.1.13.10 4.2.7.2.686 [id number] [facility] 2023-01-03 00:00:00 2023-01-03 00:00:00 Transition of Care Gokul Lovely GEORGE 1.114 350.1.13.10 4.2.7.2.686 [id number] [facility] 2022-12-30 17:21:00 2023-01-02 17:36:00 Inpatient X [facility] [id number] [facility] 2022-12-30 17:21:00 2023-01-02 17:36:00 Hospital Encounter Shilpa Barbosa Phillip Person, Chris Hu, [facility] 1.114 350.1.13.10 4.2.7.2.686 [id number] [facility] 2023-01-01 10:02:00 2023-01-01 10:49:00 Surgery Tati Nowak [facility] 1.114 350.1.13.10 4.2.7.2.686 [id number] [facility] 2022-12-28 00:00:00 2022-12-28 00:00:00 Outpatient TUCKER GORDON [facility] [id number] [facility] 2022-12-25 00:00:00 2022-12-25 00:00:00 Patient Secure Msg Doctor Unassigned, Veyo [facility] 1.114 350.1.13.10 4.2.7.2.686 [id number] [facility] 2022-12-05 00:00:00 2022-12-05 00:00:00 Telephone [facility] 1.2.114 350.1.13.10 4.2.7.2.686 [id number] [facility] 2022-12-03 00:00:00 2022-12-03 00:00:00 Patient Secure Msg Doctor Unassigned, Veyo [facility] 1..114 350.1.13.10 4.2.7.2.686 [id number] [facility] 2022-11-30 09:30:00 2022-11-30 10:48:41 Outpatient R RALF TUCKER [facility] [id number] [facility] 2022-11-30 09:30:00 2022-11-30 10:48:41 [facility]?CARMELITA [facility] MEDICAL OFFICE BUILDING 1.84.114 350.1.13.10 4.2.7.2.686 [id number] 044 [id number] [facility] 2022-10-15 12:30:00 2022-10-15 12:30:00 Outpatient OCHOA MULLEN [facility] [id number] [facility] 2022-10-11 00:00:00 2022-10-11 00:00:00 Refill [facility]GE?[facility]ARMELITA [facility] MED[facility] OFF[facility] BUILDING 1.84.114 350.1.13.10 4.2.7.2.686 [id number] 044 [id number] [facility] 2022-10-10 00:00:00 2022-10-10 00:00:00 Refill [facility] 1.840.114 350.1.13.10 4.2.7.2.686 [id number] 044 [id number] [facility] 2022-10-08 00:00:00 2022-10-08 00:00:00 Tucker [facility]CARMELITA [facility] MEDICAL OFFICE BUILDING 1.84.114 350.1.13.10 4.2.7.2.686 [id number] 044 [id number] [facility] 2022-09-12 00:00:00 2022-09-12 00:00:00 Tucker [facility]orne [facility] OFF[facility] BU[facility] 1.84.114 350.1.13.10 4.2.7.2.686 [id number] [id number] [facility] 2022-09-03 11:00:00 2022-09-03 11:00:00 Outpatient DOROTA SRIVASTAVA [facility] [id number] [facility] 2022-09-03 11:00:00 2022-09-03 11:00:00 Outpatient Hardik [facility] [id number] [facility] 2022-08-21 00:00:00 2022-08-21 00:00:00 [facility] MEDICAL OFF[facility] BUILDING 1.84.114 350.1.13.10 4.2.7.2.686 [id number] 044 [id number] [facility] 2022-08-02 00:00:00 2022-08-02 00:00:00 Patient Secure Msg Cece Daswon [facility] JORGE?[facility] MEDICAL OFFICE BUILDING 1.84.114 350.1.13.10 4.2.7.2.686 [id number] 044 [id number] [facility] 2022-08-02 00:00:00 2022-08-02 00:00:00 Patient Secure Msg Tucker Arambula [facility] MEDICAL OFFICE BUILDING 1.84.114 350.1.13.10 4.2.7.2.686 [id number] [id number] [facility] 2022-07-30 00:00:00 2022-07-30 00:00:00 Telephone [facility]any [facility]GE[facility] MED[facility] OFF[facility] BUILD[facility] 1.2.840.114 350.1.13.10 4.2.7.2.686 [id number] 044 [id number] [facility] 2022-07-27 13:30:00 2022-07-27 15:11:23 Outpatient R TUCKER ARAMBULA [facility] [id number] [facility] 2022-07-27 13:30:00 2022-07-27 15:11:23 Office Visit [facility]any [facility]ulaFirstHealthE?[facility] MEDICAL OFFICE BUILDING 1.2.840.114 350.1.13.10 4.2.7.2.686 [id number] 044 [id number] [facility] 2022-07-27 14:15:00 2022-07-27 14:30:00 Traffic Analysis Technician Visit Lab, Simón Overton Ralf [facility] MEDICAL OFFICE BUILDING 1.2.840.114 350.1.13.10 4.2.7.2.686 [id number] [facility] 2022-07-19 00:00:00 2022-07-19 00:00:00 Refill Silverio [facility] MEDICAL OFFICE BUILDING 1.2.840.114 350.1.13.10 4.2.7.2.686 [id number] 044 [id number] [facility] 2022-07-16 14:00:00 2022-07-16 14:00:00 Outpatient R TUCKER ARAMBULA [facility] [id number] [facility] 2022-06-28 00:00:00 2022-06-28 00:00:00 Refill Silverio [facility] JORGE?CARMELITA [facility] MEDICAL OFFICE BUILDING 1.84.114 350.1.13.10 4.2.7.2.686 [id number] 044 [id number] [facility] 2022-06-06 00:00:00 2022-06-06 00:00:00 RefTucker Cohen [facility] JORGE?[facility] MEDICAL OFFICE BUILDING 1.84.114 350.1.13.10 4.2.7.2.686 [id number] 044 [id number] [facility] 2022-06-04 00:00:00 2022-06-04 00:00:00 Telephone Silverio [facility] JORGE?[facility] MEDICAL OFFICE BUILDING 1.84.114 350.1.13.10 4.2.7.2.686 [id number] 044 [id number] [facility] 2022-06-02 00:00:00 2022-06-02 00:00:00 Patient Secure Msg Doctor Unassigned, Veyo [facility] 1..114 350.1.13.10 4.2.7.2.686 [id number] [facility] 2022-06-01 12:30:00 2022-06-01 12:45:00 Traffic Analysis Technician Visit Lab, Ang - Db [facility] MEDICAL OFFICE BUILDING 1.84.114 350.1.13.10 4.2.7.2.686 [id number] [facility] 2022-06-01 11:20:00 2022-06-01 12:13:24 Outpatient R SILVERIO [facility] EM[facility]PART[facility] [id number] [facility] 2022-06-01 11:20:00 2022-06-01 12:13:24 Office Visit Silverio [facility] JORGE?[facility] MEDICAL OFFICE BUILDING 1.84.114 350.1.13.10 4.2.7.2.686 [id number] 044 [id number] [facility] 2022-06-01 11:20:00 2022-06-01 12:13:24 Outpatient R DOROTA SAWYER [facility] [id number] [facility] 2022-06-01 11:20:00 2022-06-01 12:13:24 [facility] [id number] [facility] 2022-06-01 00:00:00 2022-06-01 00:00:00 Refill Silverio [facility] JORGE?[facility] MEDICAL OFFICE BUILDING 1.2.840.114 350.1.13.10 4.2.7.2.686 [id number] 044 [id number] [facility] 2022-05-31 00:00:00 2022-05-31 00:00:00 RefNam Reina [facility] JORGE?[facility] MEDICAL OFFICE BUILDING 1.2.840.114 350.1.13.10 4.2.7.2.686 [id number] 044 [id number] [facility] 2022-05-31 00:00:00 2022-05-31 00:00:00 Telephone [facility]any [facility]GE?[facility] MEDICAL OFFICE BUILDING 1.2.840.114 350.1.13.10 4.2.7.2.686 [id number] [id number] [facility] 2022-05-28 16:20:00 2022-05-28 16:20:00 Outpatient R ROMI SAWYERINE [facility] [id number] [facility] 2022-05-24 16:20:00 2022-05-24 16:20:00 Outpatient R DOROTA SAWYER [facility] [id number] [facility] 2022-05-07 00:00:00 2022-05-07 00:00:00 Refill [facility]GE?[facility] MEDICAL OFFICE BUILDING 1.0.114 350.1.13.10 4.2.7.2.686 [id number] [id number] [facility] 2022-05-07 00:00:00 2022-05-07 00:00:00 Transition of Care Karoline Tariq 1.840.114 350.1.13.10 4.2.7.2.686 [id number] [facility] 2022-04-30 14:21:00 2022-05-05 13:34:00 Inpatient X [facility]ANDACE [facility] [id number] [facility] 2022-04-30 14:21:00 2022-05-05 13:34:00 Hospital Encounter JazminepanfilovalerieGary David Edionwe, Panfilo [facility] 1.114 350.1.13.10 4.2.7.2.686 [id number] [facility] 2022-04-30 00:00:00 2022-04-30 00:00:00 Telephone Tucker Arambula [facility] JORGE?[facility] MEDICAL OFFICE BUILDING 1.114 350.1.13.10 4.2.7.2.686 [id number] 044 [id number] [facility] 2022-04-30 00:00:00 2022-04-30 00:00:00 Refill Nam Duncan [facility] JORGE?[facility] OFF[facility] BU[facility] 1..114 350.1.13.10 4.2.7.2.686 [id number] 044 [id number] [facility] 2022-04-07 00:00:00 2022-04-07 00:00:00 Refill Ketty Stevens [facility] JORGE?[facility] MEDICAL OFFICE BUILDING 1.0.114 350.1.13.10 4.2.7.2.686 [id number] 044 [id number] [facility] 2022-03-20 00:00:00 2022-03-20 00:00:00 Telephone Tucker [facility]ula [facility]?CARMELITA [facility] MEDICAL OFFICE BUILDING 1.2.840.114 350.1.13.10 4.2.7.2.686 [id number] 044 [id number] [facility] 2022-03-19 00:00:00 2022-03-19 00:00:00 Telephone Gardenia ArambulaFirstHealthTERRA PATEL?[facility] MEDICAL OFFICE BUILDING 1.2.840.114 350.1.13.10 4.2.7.2.686 [id number] 044 [id number] [facility] 2022-03-14 00:00:00 2022-03-14 00:00:00 Telephone Gardenia ArambulaFirstHealthTERRA PATEL?[facility] MEDICAL OFFICE BUILDING 1.2.840.114 350.1.13.10 4.2.7.2.686 [id number] 044 [id number] [facility] 2022-03-13 00:00:00 2022-03-13 00:00:00 RefGardenia CohenFirstHealthTERRA PATEL?[facility] MEDICAL OFF[facility] BUILD[facility] 1.2.840.114 350.1.13.10 4.2.7.2.686 [id number] 044 [id number] [facility] 2022-02-12 00:00:00 2022-02-12 00:00:00 RefGardenia CohenFirstHealthTERRA PATEL?[facility] MEDICAL OFFICE BUILDING 1.2.840.114 350.1.13.10 4.2.7.2.686 [id number] 044 [id number] [facility] 2022-01-19 15:00:00 2022-01-19 15:00:00 Outpatient R TUCKER ARAMBULA [facility] [id number] [facility] 2021-12-27 00:00:00 2021-12-27 00:00:00 Telephone Kiel Almanzar Her[facility] 1..840.114 350.1.13.10 4.2.7.2.686 [id number] [facility] 2021-12-26 10:30:00 2021-12-26 10:30:00 Outpatient R KIEL ALMANZAR [facility] [id number] [facility] 2021-12-05 10:30:00 2021-12-05 10:30:00 Outpatient Hardik ARAMBULA TUCKER [facility] [id number] [facility] 2021-11-30 10:30:00 2021-11-30 10:30:00 Outpatient TUCKER GORDON [facility] [id number] [facility] 2021-11-30 00:00:00 2021-11-30 00:00:00 Patient Secure Msg Doctor Unassigned, Veyo [facility] JORGE?[facility] MEDICAL OFFICE BUILDING 1..840.114 350.1.13.10 4.2.7.2.686 [id number] 044 [id number] [facility] 2021-11-13 00:00:00 2021-11-13 00:00:00 Telephone JessGardenia [facility]Life[facility]GE?[facility] MEDICAL OFFICE BUILDING 1..840.114 350.1.13.10 4.2.7.2.686 [id number] 044 [id number] [facility] 2021-10-16 00:00:00 2021-10-16 00:00:00 Refill [facility]GE?[facility] MEDICAL OFFICE BUILDING 1.2.840.114 350.1.13.10 4.2.7.2.686 [id number] 044 [id number] [facility] 2021-10-03 00:00:00 2021-10-03 00:00:00 Case Management Michelle Pretty 1.2.840.114 350.1.13.10 4.2.7.2.686 [id number] [facility] 2021-09-21 00:00:00 2021-09-21 00:00:00 Patient Secure Kiel Barone [facility]ARE [place] [facility] 1.2.840.114 350.1.13.10 4.2.7.2.686 [id number] [facility] 2021-09-19 00:00:00 2021-09-19 00:00:00 José Manuel Flower [facility] 1.2.840.114 350.1.13.10 4.2.7.2.686 [id number] [id number] [facility] 2021-09-18 12:57:33 2021-09-18 13:44:40 Office Visit Aryaandreia Kiel [facility] 1.2.840.114 350.1.13.10 4.2.7.2.686 [id number] [facility] 2021-09-18 12:30:00 2021-09-18 13:44:40 Outpatient KIEL LÓPEZ [facility] [id number] [facility] 2021-09-18 12:30:00 2021-09-18 12:30:00 Outpatient KIEL LÓPEZ [facility] [id number] [facility] 2021-09-18 00:00:00 2021-09-18 00:00:00 José Manuel Flower [facility] 1.2.840.114 350.1.13.10 4.2.7.2.686 [id number] [facility] 2021-09-15 10:20:00 2021-09-15 10:20:00 Outpatient JYOTI LEIGH [facility] [id number] [facility] 2021-09-15 10:20:00 2021-09-15 10:20:00 Outpatient Hardik FRAZIER JYOTI [facility] [id number] [facility] 2021-09-15 00:00:00 2021-09-15 00:00:00 Refill José Manuel Hendricksonhosh [facility] 1.2.840.114 350.1.13.10 4.2.7.2.686 [id number] [facility] 2021-09-15 00:00:00 2021-09-15 00:00:00 Refill José Manuel Hendrickson [facility] 1..840.114 350.1.13.10 4.2.7.2.686 [id number] [facility] 2021-09-12 00:00:00 2021-09-12 00:00:00 uTcker [facility]orne [facility]?CARMELITA [facility]RIST[facility]JAC[facility] MEDICAL OFFICE BUILDING 1..840.114 350.1.13.10 4.2.7.2.686 [id number] 044 [id number] [facility] 2021-09-11 14:00:00 2021-09-11 14:00:00 Outpatient KIEL LÓPEZ [facility] [id number] [facility] 2021-09-04 07:50:55 2021-09-04 23:59:00 Outpatient KEIL LÓPEZ [facility] [id number] [facility] 2021-09-04 07:50:55 2021-09-04 23:59:00 Hospital Kiel Feng [facility] 1.2.840.114 350.1.13.10 4.2.7.2.686 [id number] [facility] 2021-08-28 13:34:20 2021-08-28 14:14:59 Office Visit Kiel Almanzar Herrera [facility] 1.840.114 350.1.13.10 4.2.7.2.686 [id number] [facility] 2021-08-28 13:30:00 2021-08-28 14:14:59 Outpatient R KIEL ALMANZAR [facility] [id number] [facility] 2021-08-28 13:30:00 2021-08-28 14:14:59 Outpatient R KIEL ALMANZAR [facility] [id number] [facility] 2021-08-28 00:00:00 2021-08-28 00:00:00 Orders Only Doctor Unassigned, Veyo [facility] 1.840.114 350.1.13.10 4.2.7.2.686 [id number] [facility] 2021-08-22 10:15:00 2021-08-22 10:15:00 Outpatient R KIEL ALMANZAR [facility] [id number] [facility] 2021-08-22 10:15:00 2021-08-22 10:15:00 Outpatient R KIEL ALMANZAR [facility] [id number] [facility] 2021-08-15 14:30:00 2021-08-15 15:47:32 Outpatient R TUCKER ARAMBULA [facility] [id number] [facility] 2021-08-15 14:26:25 2021-08-15 15:47:32 Office Visit Tucker Arambula [facility] CRISTA PATEL?CARMELITA [facility] MEDICAL OFFICE BUILDING 1..840.114 350.1.13.10 4.2.7.2.686 [id number] 044 [id number] [facility] 2021-07-27 00:00:00 2021-07-27 00:00:00 Telephone Tucker Arambula [facility] Jorge?[facility] Medical Office Building 1.840.114 350.1.13.10 4.2.7.2.686 [id number] [facility] 2021-07-19 13:45:00 2021-07-19 13:45:00 Outpatient JYOTI LEIGH [facility] [id number] [facility] 2021-07-18 14:00:00 2021-07-18 23:59:00 Hospital Encounter Andrew Geller [facility] 1.84.114 350.1.13.10 4.2.7.2.686 [id number] [facility] 2021-07-18 00:00:00 2021-07-18 00:00:00 Outpatient R ANDREW GELLER [facility] [id number] [facility] 2021-07-17 14:00:00 2021-07-17 14:00:00 Outpatient R JYOTI FRAZIER [facility] [id number] [facility] 2021-07-11 11:00:00 2021-07-11 11:00:00 Outpatient JOSÉ MANUEL MIRZA [facility] [id number] [facility] 2021-07-10 00:00:00 2021-07-10 00:00:00 Patient Secure Msg Brittany [facility]At[facility] Medical Office Building 1.2840.114 350.1.13.10 4.2.7.2.686 [id number] 044 [id number] [facility] 2021-07-10 00:00:00 2021-07-10 00:00:00 Letter (Out) Brittany [facility]Critical [facility] Jorge?[facility] Medical Office Building 1.2.840.114 350.1.13.10 4.2.7.2.686 [id number] [id number] [facility] 2021-07-07 16:00:00 2021-07-07 23:59:00 Hospital Encounter [facility] Medical Office Building 1.84114 350.1.13.10 4.2.7.2.686 [id number] [facility] 2021-07-07 15:43:59 2021-07-07 15:59:00 Hospital Encounter Gardenia [facility]Formerly [facility] Medical Office Building 1.84114 350.1.13.10 4.2.7.2.686 [id number] [facility] 2021-07-07 14:20:00 2021-07-07 14:20:00 Outpatient R TUCKER ARAMBULA [facility] [id number] [facility] 2021-07-07 00:00:00 2021-07-07 00:00:00 Outpatient [facility] [id number] [facility] 2021-07-07 00:00:00 2021-07-07 00:00:00 Refill Brittany ArabmulaCritical access hospital Jorge?[facility] Medical Office Building 1.84114 350.1.13.10 4.2.7.2.686 [id number] [facility] 2021-07-06 00:00:00 2021-07-06 00:00:00 Patient Secure Msg Doctor Unassigned, Veyo [facility] 1.114 350.1.13.10 4.2.7.2.686 [id number] [facility] 2021-07-06 00:00:00 2021-07-06 00:00:00 Telephone Gardenia ArambulaFormerly [facility] County[facility] Patel?[facility] Medical Office Building 1.84114 350.1.13.10 4.2.7.2.686 [id number] [id number] [facility] 2021-07-04 13:09:58 2021-07-04 13:59:18 Office Visit Tucker Arambula [facility] Crista avery Medical Office Building 1.2840.114 350.1.13.10 4.2.7.2.686 [id number] [facility] 2021-07-04 13:00:00 2021-07-04 13:00:00 Outpatient R TUCKER ARAMBULA [facility] [id number] [facility] 2021-06-13 00:00:00 2021-06-13 00:00:00 Outpatient ANDREW CASTAÑEDA [facility] [id number] [facility] 2021-06-12 00:00:00 2021-06-12 00:00:00 Patient Secure Msg José Manuel Hendrickson [facility] .840.114 350.1.13.10 4.2.7.2.686 [id number] [facility] 2021-06-12 00:00:00 2021-06-12 00:00:00 Patient Secure Msg José Manuel Hendrickson [facility] .840.114 350.1.13.10 4.2.7.2.686 [id number] [facility] 2021-06-07 00:00:00 2021-06-07 00:00:00 Patient Secure Msg CharlieJosé Manuel [facility] .2840.114 350.1.13.10 4.2.7.2.686 [id number] [facility] 2021-06-07 00:00:00 2021-06-07 00:00:00 Patient Secure Msg CharlieJosé Manuel [facility] [place] [facility] .840.114 350.1.13.10 4.2.7.2.686 [id number] [facility] 2021-06-02 00:00:00 2021-06-02 00:00:00 Patient Secure Msg José Manuel Hendrickson [facility] 1.840.114 350.1.13.10 4.2.7.2.686 [id number] [facility] 2021-06-02 00:00:00 2021-06-02 00:00:00 Patient Secure Msg [facility] ..114 350.1.13.10 4.2.7.2.686 [id number] [facility] 2021-05-30 00:00:00 2021-05-30 00:00:00 Outpatient ANDREW CASTAÑEDA [facility] [id number] [facility] 2021-05-29 00:00:00 2021-05-29 00:00:00 Telephone Charlie José Manuel [facility] ..114 350.1.13.10 4.2.7.2.686 [id number] 072 [id number] [facility] 2021-05-19 00:00:00 2021-05-19 00:00:00 Patient Secure Msg Doctor Unassigned, Veyo [facility] .114 350.1.13.10 4.2.7.2.686 [id number] [facility] 2021-05-18 00:00:00 2021-05-18 00:00:00 Letter (Out) Jemima Ludwig [facility] ..114 350.1.13.10 4.2.7.2.686 [id number] [facility] 2021-05-16 00:00:00 2021-05-16 00:00:00 Patient Secure Msg Jemima Ludwig [facility] 1.2840.114 350.1.13.10 4.2.7.2.686 [id number] [facility] 2021-05-15 11:44:00 2021-05-15 14:20:00 Hospital Encounter Jemima Ludwig [facility] 1.20.114 350.1.13.10 4.2.7.2.686 [id number] [facility] 2021-05-15 12:13:00 2021-05-15 12:44:00 Surgery Jemima Ludwig [facility] 1.20.114 350.1.13.10 4.2.7.2.686 [id number] [facility] 2021-05-15 00:00:00 2021-05-15 00:00:00 Orders Only Doctor Unassigned, Veyo [facility] 1.20.114 350.1.13.10 4.2.7.2.686 [id number] [facility] 2021-05-15 00:00:00 2021-05-15 00:00:00 Telephone José Manuel Hendrickson [facility] 1.20.114 350.1.13.10 4.2.7.2.686 [id number] [facility] 2021-05-11 13:00:00 2021-05-11 13:00:00 Outpatient R [facility] [id number] [facility] 2021-05-11 00:00:00 2021-05-11 00:00:00 Orders Only Doctor Unassigned, Veyo [facility] 1.0.114 350.1.13.10 4.2.7.2.686 [id number] [facility] 2021-05-09 09:58:46 2021-05-09 16:58:47 Office Visit José Manuel Hendrickson [facility] 1.840.114 350.1.13.10 4.2.7.2.686 [id number] [facility] 2021-05-09 10:43:19 2021-05-09 10:58:19 Traffic Analysis Technician Visit [facility] José Manuel Hendrickson [facility] ..114 350.1.13.10 4.2.7.2.686 [id number] [facility] 2021-05-09 10:00:00 2021-05-09 10:00:00 Outpatient R JOSÉ MANUEL HENDRICKSON [facility] [id number] [facility] 2021-05-09 00:00:00 2021-05-09 00:00:00 Orders Only Doctor Unassigned, Veyo [facility] ..114 350.1.13.10 4.2.7.2.686 [id number] 009 [id number] [facility] 2021-04-05 00:00:00 2021-04-05 00:00:00 RefSarah Vaughan [facility] [place] ..114 350.1.13.10 4.2.7.2.686 [id number] [id number] [facility] 2021-04-04 00:00:00 2021-04-04 00:00:00 Sarah Tate [facility] [place] .840.114 350.1.13.10 4.2.7.2.686 [id number] [id number] [facility] 2020-09-29 14:30:00 2020-09-29 14:30:00 Outpatient R CHYNA RAMIRES [facility] [id number] [facility] 2020-06-16 15:00:00 2020-06-16 15:00:00 Outpatient R [facility] [id number] [facility] 2020-06-16 06:40:26 2020-06-16 07:10:26 Telemedici ne Visit Sarah Damon Karl E [facility] [place] 1.840.114 350.1.13.10 4.2.7.2.686 [id number] [facility] 2020-05-23 14:30:00 2020-05-23 14:30:00 Outpatient R YADIRAJOSÉ MIGUEL WORKMANNISHANT [facility] [id number] [facility] 2020-05-05 15:04:28 2020-05-06 11:41:53 Office Visit Sarah Damon [facility] [place] [facility] 1..840.114 350.1.13.10 4.2.7.2.686 [id number] [facility] 2020-05-05 15:00:00 2020-05-05 15:00:[address] [facility] [id number] [facility] 2020-05-05 00:00:00 2020-05-05 00:00:00 Orders Only Doctor Unassigned, Veyo [facility] 1.84.114 350.1.13.10 4.2.7.2.686 [id number] 009 [id number] [facility] 2020-03-24 00:00:00 2020-03-24 00:00:00 Transition of Care Lovely Hodgson 1.84.114 350.1.13.10 4.2.7.2.686 [id number] [facility] 2020-03-20 15:21:32 2020-03-23 17:48:00 Hospital Encounter Shital Mathur Benjamín, [facility] 1.2.840.114 350.1.13.10 4.2.7.2.686 [id number] [facility] 2020-01-16 00:00:00 2020-01-16 00:00:00 Telephone Shira Woods [facility] 1.2840.114 350.1.13.10 4.2.7.2.686 [id number] [facility] 2020-01-14 14:15:31 2020-01-14 14:35:31 Urgent Care Pob1, Acute Care Clinic Ramiro [facility] Office [address] 1.2.840.114 350.1.13.10 4.2.7.2.686 [id number] [id number] [facility] 2020-01-14 14:20:00 2020-01-14 14:20:00 Outpatient R RAMIRO [facility] [id number] [facility] Results Test Description Test Time Test Comments Results Result Co mments Source [facility] 20:56:13* Test Item Value Reference Range Interpretation Comme nts GASTRIN (test code = 2333-3) 37 pg/mL 0-100 Performed By: MA ZE[address] [place] [id number] Director: Jimmie Carlson MD, PhD [facility] WITH [id number] 16:48:38* Test Item Value Reference Range Interpretation Comme nts WBC (test code = 6690-2) 4.70 See_Comment [Automated messa ge] The system which generated this result transmitted reference range: 4.30 - 11.10 10*3/?L. The reference range was not used to interpret this result as normal/abnormal. RBC (test code = 789-8) 3.52 See_Comment L [Automated messa ge] The system which generated this result transmitted reference range: 3.93 - 5.25 10*6/?L. The reference range was not used to interpret this result as normal/abnormal. HGB (test code = 718-7) 9.3 g/dL 11.6-15.0 L HCT (test code = 4544-3) 28.7 % 35.7-45.2 L MCV (test code = 787-2) 81.5 fL 80.6-95.5 MCH (test code = 785-6) 26.4 pg 25.9-32.8 MCHC (test code = 786-4) 32.4 g/dL 31.6-35.1 RDW-SD (test code = 48135-0) 45.8 fL 39.0-49.9 RDW-CV (test code = 788-0) 15.7 % 12.0-15.5 H PLT (test code = 777-3) 311 See_Comment [Automated messa ge] The system which generated this result transmitted reference range: 166 - 358 10*3/?L. The reference range was not used to interpret this result as normal/abnormal. MPV (test code = 35334-4) 10.0 fL 9.5-12.9 NRBC/100 WBC (test code = 4675056811) 0.0 See_Comment [Automated BlackbookHR ssage] The system which generated this result transmitted reference range: 0.0 - 10.0 /100 WBCs. The reference range was not used to interpret this result as normal/abnormal. NRBC x10^3 (test code = 2999586369) See_Comment [Automated messa ge] The system which generated this result transmitted reference range: 10*3/?L. The reference range was not used to interpret this result as normal/abnormal. GRAN MAT (NEUT) % (test code = 770-8) 50.6 % IMM GRAN % (test code = 7204409600) 0.20 % LYMPH % (test code = 736-9) 35.1 % MONO % (test code = 5905-5) 8.3 % EOS % (test code = 713-8) 4.5 % BASO % (test code = 706-2) 1.3 % GRAN MAT x10^3(ANC) (test code = 7499257566) 2.38 10*3/uL 1.88-7.09 IMM GRAN x10^3 (test code = 7541910173) 0.00-0.06 LYMPH x10^3 (test code = 731-0) 1.65 10*3/uL 1.32-3.29 MONO x10^3 (test code = 742-7) 0.39 10*3/uL 0.33-0.92 EOS x10^3 (test code = 711-2) 0.21 10*3/uL 0.03-0.39 BASO x10^3 (test code = 704-7) 0.06 10*3/uL 0.01-0.07 Lab Interpretation (test code = 78365-2) Abnormal [facility] WITH [id number] 16:48:38* Test Item Value Reference Range Interpretation Comme nts WBC (test code = 6690-2) 4.70 See_Comment [Automated messa ge] The system which generated this result transmitted reference range: 4.30 - 11.10 10*3/?L. The reference range was not used to interpret this result as normal/abnormal. RBC (test code = 789-8) 3.52 See_Comment L [Automated messa ge] The system which generated this result transmitted reference range: 3.93 - 5.25 10*6/?L. The reference range was not used to interpret this result as normal/abnormal. HGB (test code = 718-7) 9.3 g/dL 11.6-15.0 L HCT (test code = 4544-3) 28.7 % 35.7-45.2 L MCV (test code = 787-2) 81.5 fL 80.6-95.5 MCH (test code = 785-6) 26.4 pg 25.9-32.8 MCHC (test code = 786-4) 32.4 g/dL 31.6-35.1 RDW-SD (test code = 09633-6) 45.8 fL 39.0-49.9 RDW-CV (test code = 788-0) 15.7 % 12.0-15.5 H PLT (test code = 777-3) 311 See_Comment [Automated messa ge] The system which generated this result transmitted reference range: 166 - 358 10*3/?L. The reference range was not used to interpret this result as normal/abnormal. MPV (test code = 29966-0) 10.0 fL 9.5-12.9 NRBC/100 WBC (test code = 0600646321) 0.0 See_Comment [Automated me ssage] The system which generated this result transmitted reference range: 0.0 - 10.0 /100 WBCs. The reference range was not used to interpret this result as normal/abnormal. NRBC x10^3 (test code = 1566601128) See_Comment [Automated messa ge] The system which generated this result transmitted reference range: 10*3/?L. The reference range was not used to interpret this result as normal/abnormal. GRAN MAT (NEUT) % (test code = 770-8) 50.6 % IMM GRAN % (test code = 6246217105) 0.20 % LYMPH % (test code = 736-9) 35.1 % MONO % (test code = 5905-5) 8.3 % EOS % (test code = 713-8) 4.5 % BASO % (test code = 706-2) 1.3 % GRAN MAT x10^3(ANC) (test code = 4091613717) 2.38 10*3/uL 1.88-7.09 IMM GRAN x10^3 (test code = 6552244669) 0.00-0.06 LYMPH x10^3 (test code = 731-0) 1.65 10*3/uL 1.32-3.29 MONO x10^3 (test code = 742-7) 0.39 10*3/uL 0.33-0.92 EOS x10^3 (test code = 711-2) 0.21 10*3/uL 0.03-0.39 BASO x10^3 (test code = 704-7) 0.06 10*3/uL 0.01-0.07 Lab Interpretation (test code = 71557-3) [facility]normal [facility] Packed RBC (in units), 2 Units 2023-01-01 12:28:32* Test Item Value Reference Range Interpretation Comme nts Cross Match Result (test code = 4409) Compatible ISBT Blood Type Code (test code = 119597) 9500 Unit Blood Type (test code = 4410) O Neg Unit Number (test code = 4411) [id number] Blood Expiration Date & Time (test code = 253157) 441260395911 Status Information (test code = 4412) Issued Product Identification (test code = 4413) Red Blood Cells Product Code (test code = 4414) [id number] Performed at [facility] Laboratory [facility] Blood [address] [place], [place] [address]Toll Free: [phone] No. [id number] [facility] Packed RBC (in units), 2 Units 2023-01-01 12:28:32* Test Item Value Reference Range Interpretation Comme nts Cross Match Result (test code = 4409) Compatible ISBT Blood Type Code (test code = 339024) 9500 Unit Blood Type (test code = 4410) O Neg Unit Number (test code = 4411) [id number] Blood Expiration Date & Time (test code = 252506) [id number] Status Information (test code = 4412) Issued Product Identification (test code = 4413) Red Blood Cells Product Code (test code = 4414) [id number] Performed at [facility] Blood [address]Toll Free: [phone] No. [id number] [facility] Packed RBC (in units), 1 Units 2023-01-01 11:08:21* Test Item Value Reference Range Interpretation Comme nts Cross Match Result (test code = 4409) Compatible ISBT Blood Type Code (test code = 945763) 9500 Unit Blood Type (test code = 4410) O Neg Unit Number (test code = 4411) [id number] Blood Expiration Date & Time (test code = 588960) [id number] Status Information (test code = 4412) Issued Product Identification (test code = 4413) Red Blood Cells Product Code (test code = 4414) [id number] Performed at [facility] Laboratory [facility] Blood [address] [address]Bjgn Free: [phone] No. [id number] [facility] Packed RBC (in units), 1 Units 2023-01-01 11:08:21* Test Item Value Reference Range Interpretation Comme nts Cross Match Result (test code = 4409) Compatible ISBT Blood Type Code (test code = 892533) 9500 Unit Blood Type (test code = 4410) O Neg Unit Number (test code = 4411) [id number] Blood Expiration Date & Time (test code = 668795) 644753618930 Status Information (test code = 4412) Issued Product Identification (test code = 4413) Red Blood Cells Product Code (test code = 4414) [id number] Performed at [facility] Laboratory Services [facility] Blood [address] [address]Hupu Free: [phone] No. [id number] [facility]ERR[facility]IN [id number] 21:19:57* Test Item Value Reference Range Interpretation Comme nts FERRITIN (test code = 3225549036) 4.2 ng/mL 6.0-137.0 L CIERA (test code = CIERA) Biotin has been reported to cause a negative bias, interpret results relative to patient's use of biotin. Lab Interpretation (test code = 03902-4) Abnormal [facility] [id number] 21:19:57* Test Item Value Reference Range Interpretation Comme nts FERRITIN (test code = 2927385644) 4.2 ng/mL 6.0-137.0 L CIERA (test code = CIERA) Biotin has been reported to cause a negative bias, interpret results relative to patient's use of biotin. Lab Interpretation (test code = 26487-6) Abnormal [facility] Hospital[facility]ON2023-03-20 20:30:30* Test Item Value Reference Range Interpretation Comme nts IRON (test code = 5826413166) 115 ug/dL 50-160 Lab Interpretation (test cod e = 42979-2) Normal [place] 14283023-03-20 20:30:30* Test Item Value Reference Range Interpretation Comme nts IRON (test code = 0438814262) 115 ug/dL 50-160 Lab Interpretation (test cod e = 48126-8) Normal [facility] (NA, K, CL, CO2, GLUCOSE, BUN, CREATININE, CA)2022-12-31 11:39:33* Test Item Value Reference Range Interpretation Comme nts NA (test code = 7077695260) 137 mmol/L 135-145 K (test code = 3025939827) 3.7 mmol/L 3.5-5.0 CL (test code = 9076158279) 110 mmol/L 98-108 H CO2 TOTAL (test code = 2537158915) 26 mmol/L 23-31 AGAP (test code = 4530754706) 1 2-16 L BUN (test code = 4684976868) 7 mg/dL 7-23 GLUCOSE (test code = 1839240185) 104 mg/dL 70-110 CREATININE (test code = 4322749882) 0.44 mg/dL 0.50-1.04 L CALCIUM (test code = 5353383996) 7.0 mg/dL 8.6-10.6 L eGFR (test code = 4580456290) 156.1 mL/min/1.73m2 CIERA (test code = CIERA) Association of [...] or abnormalities in imaging tests). Lab Interpretation (test code = 06822-7) Abnormal [facility]2023-03-20 11:39:33* Test Item Value Reference Range Interpretation Comme nts MAGNESIUM (test code = 3950181334) 2.2 mg/dL 1.7-2.4 Lab Interpretation (test cod e = 44679-1) Normal [facility]2023-03-20 11:39:33* Test Item Value Reference Range Interpretation Comme nts PHOSPHORUS (test code = 9207761399) 3.2 mg/dL 2.5-5.0 Lab Interpretation (test cod e = 45106-5) Normal [facility] METABOLIC PANEL (NA, K, CL, CO2, GLUCOSE, BUN, CREATININE, CA)2022-12-31 11:39:33* Test Item Value Reference Range Interpretation Comme nts NA (test code = 1470136523) 137 mmol/L 135-145 K (test code = 5692827379) 3.7 mmol/L 3.5-5.0 CL (test code = 5645249294) 110 mmol/L 98-108 H CO2 TOTAL (test code = 0520554421) 26 mmol/L 23-31 AGAP (test code = 6763120924) 1 2-16 L BUN (test code = 3708463979) 7 mg/dL 7-23 GLUCOSE (test code = 0299583779) 104 mg/dL 70-110 CREATININE (test code = 4321086521) 0.44 mg/dL 0.50-1.04 L CALCIUM (test code = 7501086570) 7.0 mg/dL 8.6-10.6 L eGFR (test code = 2446130511) 156.1 mL/min/1.73m2 CIERA (test code = CIERA) Association of [...] or abnormalities in imaging tests). Lab Interpretation (test code = 98185-5) Abnormal [facility]2023-03-20 11:39:33* Test Item Value Reference Range Interpretation Comme nts MAGNESIUM (test code = 1130665902) 2.2 mg/dL 1.7-2.4 Lab Interpretation (test cod e = 74538-5) Normal [facility]2023-03-20 11:39:33* Test Item Value Reference Range Interpretation Comme nts PHOSPHORUS (test code = 6775553714) 3.2 mg/dL 2.5-5.0 Lab Interpretation (test cod e = 94098-9) Normal [facility] WITH [id number] 11:12:50* Test Item Value Reference Range Interpretation Comme nts WBC (test code = 6690-2) 7.20 See_Comment [Automated messa Mural.ly] The system which generated this result transmitted reference range: 4.30 - 11.10 10*3/?L. The reference range was not used to interpret this result as normal/abnormal. RBC (test code = 789-8) 2.97 See_Comment L [Automated messa ge] The system which generated this result transmitted reference range: 3.93 - 5.25 10*6/?L. The reference range was not used to interpret this result as normal/abnormal. HGB (test code = 718-7) 7.7 g/dL 11.6-15.0 L HCT (test code = 4544-3) 23.7 % 35.7-45.2 L MCV (test code = 787-2) 79.8 fL 80.6-95.5 L MCH (test code = 785-6) 25.9 pg 25.9-32.8 MCHC (test code = 786-4) 32.5 g/dL 31.6-35.1 RDW-SD (test code = 63475-5) 44.3 fL 39.0-49.9 RDW-CV (test code = 788-0) 15.4 % 12.0-15.5 PLT (test code = 777-3) 321 See_Comment [Automated LeanKita ge] The system which generated this result transmitted reference range: 166 - 358 10*3/?L. The reference range was not used to interpret this result as normal/abnormal. MPV (test code = 63549-7) 10.1 fL 9.5-12.9 NRBC/100 WBC (test code = 4902403334) 0.0 See_Comment [Automated BlackbookHR ssage] The system which generated this result transmitted reference range: 0.0 - 10.0 /100 WBCs. The reference range was not used to interpret this result as normal/abnormal. NRBC x10^3 (test code = 5732493674) See_Comment [Automated LeanKita ge] The system which generated this result transmitted reference range: 10*3/?L. The reference range was not used to interpret this result as normal/abnormal. GRAN MAT (NEUT) % (test code = 770-8) 62.8 % IMM GRAN % (test code = 9821903034) 0.30 % LYMPH % (test code = 736-9) 27.1 % MONO % (test code = 5905-5) 7.8 % EOS % (test code = 713-8) 1.3 % BASO % (test code = 706-2) 0.7 % GRAN MAT x10^3(ANC) (test code = 4188069181) 4.53 10*3/uL 1.88-7.09 IMM GRAN x10^3 (test code = 6180536159) 0.00-0.06 LYMPH x10^3 (test code = 731-0) 1.95 10*3/uL 1.32-3.29 MONO x10^3 (test code = 742-7) 0.56 10*3/uL 0.33-0.92 EOS x10^3 (test code = 711-2) 0.09 10*3/uL 0.03-0.39 BASO x10^3 (test code = 704-7) 0.05 10*3/uL 0.01-0.07 Lab Interpretation (test code = 03209-8) Abnormal [facility] WITH [id number] 11:12:50* Test Item Value Reference Range Interpretation Comme nts WBC (test code = 6690-2) 7.20 See_Comment [Automated messa ge] The system which generated this result transmitted reference range: 4.30 - 11.10 10*3/?L. The reference range was not used to interpret this result as normal/abnormal. RBC (test code = 789-8) 2.97 See_Comment L [Automated messa ge] The system which generated this result transmitted reference range: 3.93 - 5.25 10*6/?L. The reference range was not used to interpret this result as normal/abnormal. HGB (test code = 718-7) 7.7 g/dL 11.6-15.0 L HCT (test code = 4544-3) 23.7 % 35.7-45.2 L MCV (test code = 787-2) 79.8 fL 80.6-95.5 L MCH (test code = 785-6) 25.9 pg 25.9-32.8 MCHC (test code = 786-4) 32.5 g/dL 31.6-35.1 RDW-SD (test code = 47691-2) 44.3 fL 39.0-49.9 RDW-CV (test code = 788-0) 15.4 % 12.0-15.5 PLT (test code = 777-3) 321 See_Comment [Automated messa ge] The system which generated this result transmitted reference range: 166 - 358 10*3/?L. The reference range was not used to interpret this result as normal/abnormal. MPV (test code = 92866-6) 10.1 fL 9.5-12.9 NRBC/100 WBC (test code = 9241329444) 0.0 See_Comment [Automated BlackbookHR ssage] The system which generated this result transmitted reference range: 0.0 - 10.0 /100 WBCs. The reference range was not used to interpret this result as normal/abnormal. NRBC x10^3 (test code = 0099706408) See_Comment [Automated messa ge] The system which generated this result transmitted reference range: 10*3/?L. The reference range was not used to interpret this result as normal/abnormal. GRAN MAT (NEUT) % (test code = 770-8) 62.8 % IMM GRAN % (test code = 3948466358) 0.30 % LYMPH % (test code = 736-9) 27.1 % MONO % (test code = 5905-5) 7.8 % EOS % (test code = 713-8) 1.3 % BASO % (test code = 706-2) 0.7 % GRAN MAT x10^3(ANC) (test code = 0463882268) 4.53 10*3/uL 1.88-7.09 IMM GRAN x10^3 (test code = 4320838179) 0.00-0.06 LYMPH x10^3 (test code = 731-0) 1.95 10*3/uL 1.32-3.29 MONO x10^3 (test code = 742-7) 0.56 10*3/uL 0.33-0.92 EOS x10^3 (test code = 711-2) 0.09 10*3/uL 0.03-0.39 BASO x10^3 (test code = 704-7) 0.05 10*3/uL 0.01-0.07 Lab Interpretation (test code = 06137-7) Abnormal [facility] Packed RBC (in units), 1 Units 2022-12-31 05:50:01* Test Item Value Reference Range Interpretation Comme nts Cross Match Result (test code = 4409) Compatible ISBT Blood Type Code (test code = 390320) 9500 Unit Blood Type (test code = 4410) O Neg Unit Number (test code = 4411) [id number] Blood Expiration Date & Time (test code = 089531) 074928388594 Status Information (test code = 4412) Issued Product Identification (test code = 4413) Red Blood Cells Product Code (test code = 4414) [id number] Performed at [facility] Blood [address] Free: [phone] No. [id number] [facility] Packed RBC (in units), 1 Units 2022-12-31 05:50:01* Test Item Value Reference Range Interpretation Comme nts Cross Match Result (test code = 4409) Compatible ISBT Blood Type Code (test code = 762693) 9500 Unit Blood Type (test code = 4410) O Neg Unit Number (test code = 4411) [id number] Blood Expiration Date & Time (test code = 022616) 134325696845 Status Information (test code = 4412) Issued Product Identification (test code = 4413) Red Blood Cells Product Code (test code = 4414) [id number] Performed at [facility] Blood [address] Free: [phone] No. [id number] [facility] Metabolic [facility] (NA, K, CL, CO2, Glucose, BUN, Creatinine, CA)2022-12-31 05:05:10* Test Item Value Reference Range Interpretation Comme nts NA (test code = 2131102863) 136 mmol/L 135-145 K (test code = 2081283006) 3.4 mmol/L 3.5-5.0 L CL (test code = 8645302795) 109 mmol/L 98-108 H CO2 TOTAL (test code = 8278828094) 26 mmol/L 23-31 AGAP (test code = 9836361823) 1 2-16 L BUN (test code = 6867804869) 9 mg/dL 7-23 GLUCOSE (test code = 6029826254) 98 mg/dL 70-110 CREATININE (test code = 0296834569) 0.46 mg/dL 0.50-1.04 L CALCIUM (test code = 0238889779) 7.3 mg/dL 8.6-10.6 L eGFR (test code = 3200006309) 148.3 mL/min/1.73m2 CIERA (test code = CIERA) Association of [...] or abnormalities in imaging tests). Lab Interpretation (test code = 03089-7) Abnormal [facility] [id number] 05:05:10* Test Item Value Reference Range Interpretation Comme nts MAGNESIUM (test code = 4090705074) 1.5 mg/dL 1.7-2.4 L Lab Interpretation (test cod e = 67380-0) Abnormal [facility] [id number] 05:05:10* Test Item Value Reference Range Interpretation Comme nts PHOSPHORUS (test code = 8813705489) 2.2 mg/dL 2.5-5.0 L Lab Interpretation (test cod e = 93362-7) Abnormal [facility] Metabolic Panel (NA, K, CL, CO2, Glucose, BUN, Creatinine, CA)2022-12-31 05:05:10* Test Item Value Reference Range Interpretation Comme nts NA (test code = 3781008833) 136 mmol/L 135-145 K (test code = 4324258338) 3.4 mmol/L 3.5-5.0 L CL (test code = 0816845574) 109 mmol/L 98-108 H CO2 TOTAL (test code = 0792954722) 26 mmol/L 23-31 AGAP (test code = 7854418551) 1 2-16 L BUN (test code = 9558760129) 9 mg/dL 7-23 GLUCOSE (test code = 5585497169) 98 mg/dL 70-110 CREATININE (test code = 9239133098) 0.46 mg/dL 0.50-1.04 L CALCIUM (test code = 0177223936) 7.3 mg/dL 8.6-10.6 L eGFR (test code = 7654723420) 148.3 mL/min/1.73m2 CIERA (test code = CIERA) Association of [...] or abnormalities in imaging tests). Lab Interpretation (test code = 80409-8) Abnormal [facility] Jaklv9552-37-36 05:05:10* Test Item Value Reference Range Interpretation Comme [facility] MAGNESIUM (test code = 9409678660) 1.5 mg/dL 1.7-2.4 L Lab Interpretation (test cod e = 53977-0) Abnormal [facility] [id number] 05:05:10* Test Item Value Reference Range Interpretation Comme nts PHOSPHORUS (test code = 1889778700) 2.2 mg/dL 2.5-5.0 L Lab Interpretation (test cod e = 39606-7) Abnormal [facility] Hospital[facility]th[facility]bin Time (PT) / [id number] 04:52:12 * Test Item Value Reference Range Interpretation Comme [facility] PROTIME PATIENT (test code = 5964-2) 14.6 See_Comment H [Automated Tuniu] The system which generated this result transmitted reference range: 10.1 - 12.6 Seconds. The reference range was not used to interpret this result as normal/abnormal. INR (test code = 6301-6) 1.3 Normal INR <1.1; Warfarin Therapeutic range 2.0 to 3.0 or 2.5 to 3.5, depending upon the indications. Lab Interpretation (test code = 11447-2) Abnormal [facility] HospitalaPTT2023-03-20 04:52:12* Test Item Value Reference Range Interpretation Comme [facility] APTT Patient (test code = 3173-2) 27 See_Comment [Automated Tuniu] The system which generated this result transmitted reference range: 26 - 36 Seconds. The reference range was not used to interpret this result as normal/abnormal. Lab Interpretation (test code = 77784-5) Normal [facility] Time (PT) / [id number] 04:52:12 * Test Item Value Reference Range Interpretation Comme [facility] PROTIME PATIENT (test code = 5964-2) 14.6 See_Comment H [Automated messa ge] The system which generated this result transmitted reference range: 10.1 - 12.6 Seconds. The reference range was not used to interpret this result as normal/abnormal. INR (test code = 6301-6) 1.3 Normal INR <1.1; Warfarin Therapeutic range 2.0 to 3.0 or 2.5 to 3.5, depending upon the indications. Lab Interpretation (test code = 31635-8) [facility]normal [facility]12* Test Item Value Reference Range Interpretation Comme [facility] APTT Patient (test code = 3173-2) 27 See_Comment [Automated messa ge] The system which generated this result transmitted reference range: 26 - 36 Seconds. The reference range was not used to interpret this result as normal/abnormal. Lab Interpretation (test code = 09996-3) [facility] Zmckudysgyyn8677-96-92 04:43:10* Test Item Value Reference Range Interpretation Comme [facility] WBC (test code = 6690-2) 7.56 See_Comment [Automated messa ge] The system which generated this result transmitted reference range: 4.30 - 11.10 10*3/?L. The reference range was not used to interpret this result as normal/abnormal. RBC (test code = 789-8) 2.67 See_Comment L [Automated messa ge] The system which generated this result transmitted reference range: 3.93 - 5.25 10*6/?L. The reference range was not used to interpret this result as normal/abnormal. HGB (test code = 718-7) 6.6 g/dL 11.6-15.0 L HCT (test code = 4544-3) 21.5 % 35.7-45.2 L MCV (test code = 787-2) 80.5 fL 80.6-95.5 L MCH (test code = 785-6) 24.7 pg 25.9-32.8 L MCHC (test code = 786-4) 30.7 g/dL 31.6-35.1 L RDW-SD (test code = 57593-9) 45.2 fL 39.0-49.9 RDW-CV (test code = 788-0) 15.6 % 12.0-15.5 H PLT (test code = 777-3) 389 See_Comment H [Automated messa ge] The system which generated this result transmitted reference range: 166 - 358 10*3/?L. The reference range was not used to interpret this result as normal/abnormal. MPV (test code = 69150-4) 10.4 fL 9.5-12.9 NRBC/100 WBC (test code = 6122180942) 0.0 See_Comment [Automated me ssage] The system which generated this result transmitted reference range: 0.0 - 10.0 /100 WBCs. The reference range was not used to interpret this result as normal/abnormal. NRBC x10^3 (test code = 7583718314) See_Comment [Automated messa ge] The system which generated this result transmitted reference range: 10*3/?L. The reference range was not used to interpret this result as normal/abnormal. GRAN MAT (NEUT) % (test code = 770-8) 71.0 % IMM GRAN % (test code = 1465696696) 0.30 % LYMPH % (test code = 736-9) 23.3 % MONO % (test code = 5905-5) 4.6 % EOS % (test code = 713-8) 0.4 % BASO % (test code = 706-2) 0.4 % GRAN MAT x10^3(ANC) (test code = 0207028292) 5.37 10*3/uL 1.88-7.09 IMM GRAN x10^3 (test code = 6946841048) 0.00-0.06 LYMPH x10^3 (test code = 731-0) 1.76 10*3/uL 1.32-3.29 MONO x10^3 (test code = 742-7) 0.35 10*3/uL 0.33-0.92 EOS x10^3 (test code = 711-2) 0.03 10*3/uL 0.03-0.39 BASO x10^3 (test code = 704-7) 0.03 10*3/uL 0.01-0.07 Lab Interpretation (test code = 16665-4) Abnormal [facility] with Ibqhpyrirewj0590-58-88 04:43:10* Test Item Value Reference Range Interpretation Comme nts WBC (test code = 6690-2) 7.56 See_Comment [Automated messa ge] The system which generated this result transmitted reference range: 4.30 - 11.10 10*3/?L. The reference range was not used to interpret this result as normal/abnormal. RBC (test code = 789-8) 2.67 See_Comment L [Automated messa ge] The system which generated this result transmitted reference range: 3.93 - 5.25 10*6/?L. The reference range was not used to interpret this result as normal/abnormal. HGB (test code = 718-7) 6.6 g/dL 11.6-15.0 L HCT (test code = 4544-3) 21.5 % 35.7-45.2 L MCV (test code = 787-2) 80.5 fL 80.6-95.5 L MCH (test code = 785-6) 24.7 pg 25.9-32.8 L MCHC (test code = 786-4) 30.7 g/dL 31.6-35.1 L RDW-SD (test code = 27278-5) 45.2 fL 39.0-49.9 RDW-CV (test code = 788-0) 15.6 % 12.0-15.5 H PLT (test code = 777-3) 389 See_Comment H [Automated messa ge] The system which generated this result transmitted reference range: 166 - 358 10*3/?L. The reference range was not used to interpret this result as normal/abnormal. MPV (test code = 01505-8) 10.4 fL 9.5-12.9 NRBC/100 WBC (test code = 7821127990) 0.0 See_Comment [Automated me ssage] The system which generated this result transmitted reference range: 0.0 - 10.0 /100 WBCs. The reference range was not used to interpret this result as normal/abnormal. NRBC x10^3 (test code = 6556540643) See_Comment [Automated messa ge] The system which generated this result transmitted reference range: 10*3/?L. The reference range was not used to interpret this result as normal/abnormal. GRAN MAT (NEUT) % (test code = 770-8) 71.0 % IMM GRAN % (test code = 7814866354) 0.30 % LYMPH % (test code = 736-9) 23.3 % MONO % (test code = 5905-5) 4.6 % EOS % (test code = 713-8) 0.4 % BASO % (test code = 706-2) 0.4 % GRAN MAT x10^3(ANC) (test code = 2126644314) 5.37 10*3/uL 1.88-7.09 IMM GRAN x10^3 (test code = 4517284728) 0.00-0.06 LYMPH x10^3 (test code = 731-0) 1.76 10*3/uL 1.32-3.29 MONO x10^3 (test code = 742-7) 0.35 10*3/uL 0.33-0.92 EOS x10^3 (test code = 711-2) 0.03 10*3/uL 0.03-0.39 BASO x10^3 (test code = 704-7) 0.03 10*3/uL 0.01-0.07 Lab Interpretation (test code = 47346-2) [facility] VSMO9173-64-59 01:02:00 * Test Item Value Reference Range Interpretation Comme nts ABO & RH (test code = 20) O Negative IAT (test code = 1185) Negative [facility] KJBP7635-35-28 01:02:00 * Test Item Value Reference Range Interpretation Comme nts ABO & RH (test code = 20) O Negative IAT (test code = 1185) Negative [facility] WOEY7896-27-19 00:56:00* Test Item Value Reference Range Interpretation Comme nts POCT PREG (test code = 1605) Negative On board controls acceptable with C Line (test code = 3574) Present POCT PREG LOT # (test code = 3575) [id number] POCT PREG TEST DATE ( test code = 3576) 03/13/24 Lab Interpretation (test cod e = 91094-5) [facility] ZVAJ6613-86-63 00:56:00* Test Item Value Reference Range Interpretation Comme nts POCT PREG (test code = 1605) Negative On board controls acceptable with C Line (test code = 3574) Present POCT PREG LOT # (test code = 3575) [id number] POCT PREG TEST DATE ( test code = 3576) 03/13/24 Lab Interpretation (test cod e = 45292-4) [facility]* Test Item Value Reference Range Interpretation Comme nts LIPASE (test code = 6013293959) 51 U/L 0-220 Lab Interpretation (test cod e = 58431-0) [facility] 00:31:59* Test Item Value Reference Range Interpretation Comme nts LIPASE (test code = 2416353029) 51 U/L 0-220 Lab Interpretation (test cod e = 22964-1) [facility] (28106)2022-12-31 00:10:38* Test Item Value Reference Range Interpretation Comme nts NA (test code = 6674194105) 136 mmol/L 135-145 K (test code = 1372790446) 4.2 mmol/L 3.5-5.0 CL (test code = 3524531842) 102 mmol/L 98-108 CO2 TOTAL (test code = 3890477364) 23 mmol/L 23-31 AGAP (test code = 6410047759) 11 2-16 BUN (test code = 0081341402) 13 mg/dL 7-23 GLUCOSE (test code = 7284320040) 111 mg/dL 70-110 H CREATININE (test code = 2326336514) 0.51 mg/dL 0.50-1.04 TOTAL BILI (test code = 2620284446) 0.4 mg/dL 0.1-1.1 CALCIUM (test code = 7750525082) 9.0 mg/dL 8.6-10.6 T PROTEIN (test code = 2319208785) 6.8 g/dL 6.3-8.2 ALBUMIN (test code = 3096901027) 3.8 g/dL 3.5-5.0 ALK PHOS (test code = 1732836739) 100 U/L 34-122 ALTv (test code = 1742-6) 12 U/L 5-35 AST(SGOT) (test code = 3396936619) 17 U/L 13-40 eGFR (test code = 2923067621) 131.6 mL/min/1.73m2 CIERA (test code = CIERA) Association of [...] or abnormalities in imaging tests). Lab Interpretation (test code = 74877-2) [facility] 00:10:38* Test Item Value Reference Range Interpretation Comme nts MAGNESIUM (test code = 6012955066) 1.5 mg/dL 1.7-2.4 L Lab Interpretation (test cod e = 19635-9) [facility] (41787)2022-12-31 00:10:38* Test Item Value Reference Range Interpretation Comme nts NA (test code = 3914609931) 136 mmol/L 135-145 K (test code = 2778873827) 4.2 mmol/L 3.5-5.0 CL (test code = 3908509792) 102 mmol/L 98-108 CO2 TOTAL (test code = 4387504848) 23 mmol/L 23-31 AGAP (test code = 4348603787) 11 2-16 BUN (test code = 3036304540) 13 mg/dL 7-23 GLUCOSE (test code = 8636025900) 111 mg/dL 70-110 H CREATININE (test code = 3304735624) 0.51 mg/dL 0.50-1.04 TOTAL BILI (test code = 9180463047) 0.4 mg/dL 0.1-1.1 CALCIUM (test code = 7477374009) 9.0 mg/dL 8.6-10.6 T PROTEIN (test code = 6851287436) 6.8 g/dL 6.3-8.2 ALBUMIN (test code = 9233062923) 3.8 g/dL 3.5-5.0 ALK PHOS (test code = 5440565629) 100 U/L 34-122 ALTv (test code = 1742-6) 12 U/L 5-35 AST(SGOT) (test code = 8252519290) 17 U/L 13-40 eGFR (test code = 0886025803) 131.6 mL/min/1.73m2 CIERA (test code = CIERA) Association of [...] or abnormalities in imaging tests). Lab Interpretation (test code = 46174-3) [facility] 00:10:38* Test Item Value Reference Range Interpretation Comme nts MAGNESIUM (test code = 1267407236) 1.5 mg/dL 1.7-2.4 L Lab Interpretation (test cod e = 78049-3) [facility] WITH CMVN9361-50-41 23:56:38* Test Item Value Reference Range Interpretation Comme nts WBC (test code = 6690-2) 10.50 See_Comment [Automated Tuniu] The system which generated this result transmitted reference range: 4.30 - 11.10 10*3/?L. The reference range was not used to interpret this result as normal/abnormal. RBC (test code = 789-8) 2.62 See_Comment L [Automated [employer]] The system which generated this result transmitted reference range: 3.93 - 5.25 10*6/?L. The reference range was not used to interpret this result as normal/abnormal. HGB (test code = 718-7) 6.2 g/dL 11.6-15.0 L HCT (test code = 4544-3) 20.7 % 35.7-45.2 L MCV (test code = 787-2) 79.0 fL 80.6-95.5 L MCH (test code = 785-6) 23.7 pg 25.9-32.8 L MCHC (test code = 786-4) 30.0 g/dL 31.6-35.1 L RDW-SD (test code = 60754-3) 46.9 fL 39.0-49.9 RDW-CV (test code = 788-0) 16.4 % 12.0-15.5 H PLT (test code = 777-3) 505 See_Comment H [Automated messa ge] The system which generated this result transmitted reference range: 166 - 358 10*3/?L. The reference range was not used to interpret this result as normal/abnormal. MPV (test code = 15183-2) 10.7 fL 9.5-12.9 NRBC/100 WBC (test code = 1853634148) 0.0 See_Comment [Automated me ssage] The system which generated this result transmitted reference range: 0.0 - 10.0 /100 WBCs. The reference range was not used to interpret this result as normal/abnormal. NRBC x10^3 (test code = 5895656702) See_Comment [Automated messa ge] The system which generated this result transmitted reference range: 10*3/?L. The reference range was not used to interpret this result as normal/abnormal. GRAN MAT (NEUT) % (test code = 770-8) 77.8 % IMM GRAN % (test code = 4644445498) 0.40 % LYMPH % (test code = 736-9) 16.8 % MONO % (test code = 5905-5) 4.0 % EOS % (test code = 713-8) 0.5 % BASO % (test code = 706-2) 0.5 % GRAN MAT x10^3(ANC) (test code = 5175999275) 8.18 10*3/uL 1.88-7.09 H IMM GRAN x10^3 (test code = 4114578077) 0.04 10*3/uL 0.00-0.06 LYMPH x10^3 (test code = 731-0) 1.76 10*3/uL 1.32-3.29 MONO x10^3 (test code = 742-7) 0.42 10*3/uL 0.33-0.92 EOS x10^3 (test code = 711-2) 0.05 10*3/uL 0.03-0.39 BASO x10^3 (test code = 704-7) 0.05 10*3/uL 0.01-0.07 Lab Interpretation (test code = 11060-6) Abnormal [facility] WITH MURF3840-50-94 23:56:38* Test Item Value Reference Range Interpretation Comme nts WBC (test code = 6690-2) 10.50 See_Comment [Automated messa ge] The system which generated this result transmitted reference range: 4.30 - 11.10 10*3/?L. The reference range was not used to interpret this result as normal/abnormal. RBC (test code = 789-8) 2.62 See_Comment L [Automated messa ge] The system which generated this result transmitted reference range: 3.93 - 5.25 10*6/?L. The reference range was not used to interpret this result as normal/abnormal. HGB (test code = 718-7) 6.2 g/dL 11.6-15.0 L HCT (test code = 4544-3) 20.7 % 35.7-45.2 L MCV (test code = 787-2) 79.0 fL 80.6-95.5 L MCH (test code = 785-6) 23.7 pg 25.9-32.8 L MCHC (test code = 786-4) 30.0 g/dL 31.6-35.1 L RDW-SD (test code = 17465-7) 46.9 fL 39.0-49.9 RDW-CV (test code = 788-0) 16.4 % 12.0-15.5 H PLT (test code = 777-3) 505 See_Comment H [Automated messa ge] The system which generated this result transmitted reference range: 166 - 358 10*3/?L. The reference range was not used to interpret this result as normal/abnormal. MPV (test code = 47666-8) 10.7 fL 9.5-12.9 NRBC/100 WBC (test code = 3145643206) 0.0 See_Comment [Automated me ssage] The system which generated this result transmitted reference range: 0.0 - 10.0 /100 WBCs. The reference range was not used to interpret this result as normal/abnormal. NRBC x10^3 (test code = 1004884223) See_Comment [Automated messa ge] The system which generated this result transmitted reference range: 10*3/?L. The reference range was not used to interpret this result as normal/abnormal. GRAN MAT (NEUT) % (test code = 770-8) 77.8 % IMM GRAN % (test code = 9263934774) 0.40 % LYMPH % (test code = 736-9) 16.8 % MONO % (test code = 5905-5) 4.0 % EOS % (test code = 713-8) 0.5 % BASO % (test code = 706-2) 0.5 % GRAN MAT x10^3(ANC) (test code = 9352651734) 8.18 10*3/uL 1.88-7.09 H IMM GRAN x10^3 (test code = 2344733943) 0.04 10*3/uL 0.00-0.06 LYMPH x10^3 (test code = 731-0) 1.76 10*3/uL 1.32-3.29 MONO x10^3 (test code = 742-7) 0.42 10*3/uL 0.33-0.92 EOS x10^3 (test code = 711-2) 0.05 10*3/uL 0.03-0.39 BASO x10^3 (test code = 704-7) 0.05 10*3/uL 0.01-0.07 Lab Interpretation (test code = 74316-7) Abnormal [facility] WITH KRVA9923-67-78 21:11:40* Test Item Value Reference Range Interpretation Comme nts WBC (test code = 6690-2) See_Comment [Automated messa ge] The system which generated this result transmitted reference range: 4.30 - 11.10 10*3/?L. The reference range was not used to interpret this result as normal/abnormal. RBC (test code = 789-8) See_Comment L [Automated messa ge] The system which generated this result transmitted reference range: 3.93 - 5.25 10*6/?L. The reference range was not used to interpret this result as normal/abnormal. HGB (test code = 718-7) 9.5 g/dL 11.6-15 L HCT (test code = 4544-3) 32.6 % 35.7-45.2 L MCV (test code = 787-2) 86.7 fL 80.6-95.5 MCH (test code = 785-6) 25.3 pg 25.9-32.8 L MCHC (test code = 786-4) 29.1 g/dL 31.6-35.1 L RDW-SD (test code = 04672-2) 77.1 fL 39-49.9 H RDW-CV (test code = 788-0) 24.8 % 12-15.5 H PLT (test code = 777-3) See_Comment [Automated messa ge] The system which generated this result transmitted reference range: 166 - 358 10*3/?L. The reference range was not used to interpret this result as normal/abnormal. MPV (test code = 30665-3) 10.0 fL 9.5-12.9 NRBC/100 WBC (test code = 4474740461) See_Comment [Automated BlackbookHR ssage] The system which generated this result transmitted reference range: 0.0 - 10.0 /100 WBCs. The reference range was not used to interpret this result as normal/abnormal. NRBC x10^3 (test code = 5378440362) See_Comment [Automated messa ge] The system which generated this result transmitted reference range: 10*3/?L. The reference range was not used to interpret this result as normal/abnormal. GRAN MAT (NEUT) % (test code = 770-8) 68.5 % IMM GRAN % (test code = 5751177917) 0.40 % LYMPH % (test code = 736-9) 21.3 % MONO % (test code = 5905-5) 6.0 % EOS % (test code = 713-8) 2.9 % BASO % (test code = 706-2) 0.9 % GRAN MAT x10^3(ANC) (test code = 3238997483) 4.67 10*3/uL 1.88-7.09 IMM GRAN x10^3 (test code = 8323858897) 0.03 10*3/uL 0-0.06 LYMPH x10^3 (test code = 731-0) 1.45 10*3/uL 1.32-3.29 MONO x10^3 (test code = 742-7) 0.41 10*3/uL 0.33-0.92 EOS x10^3 (test code = 711-2) 0.20 10*3/uL 0.03-0.39 BASO x10^3 (test code = 704-7) 0.06 10*3/uL 0.01-0.07 Lab Interpretation (test code = 42304-9) Abnormal [facility] Notes Date/Time Note Provider Source 2023-10-04 08:51:53 8JWMCQiN3CS0LVPXRDJb U8qMqXkTUjk3G5A RuaU3UxS8Ww46H3mw7EhX9ch8XovX8963-7 08:51:53 Attempted to contact patient, left message on voicemail notifying she will need appointment for further refills and will also send my chart message with same information. 62929-0Iecpvmnyw encounter SzrhRM5839-73-94V41:58:55Telephone encounter NoteTXT1.2.840.299242.1.13.104.2.7. 2.733499|[id number] for patient zxbg24830-9FcjlAOBACHAKMDZKuwarbekn C-CDA narrative [id number] A Pena MA[address] Vk[id number] 3BDAQDCRJYIIWQCTUOOQYSE9807-43-15V1 8:58:551.2.840.914912.1.72.3.15|1.2 .840.779176.1.13.104.2.7.2.727879_1 [id number] Mercedes Mata MA [facility] 2023-10-04 07:09:29 BpJLy9FckMMb+Pw8TSN5 cZJIvR1k8z/s627 F8NYpyDRAbhiqnG3tAXFs2wzyzttf5874-6 07:09:29 Please call Patient and set an appointment. Must be seen for further refills.Last Refilled:doxepin 50 mg capsule 15 capsule 0 09/16/2023 -- NoSig: Take 1 capsule by mouth at bedtime. 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 The potential side effects of this drug class/medication were reviewed and the patient voiced understanding. The patient has not expressed an interest in referral for counseling or Psychiatry care at this time. Healthy ways of coping with his/her emotional symptoms and stress will be shared with the patient. Thyroid function testing is already up-to-date or will be ordered. Close follow-up has been recommended but the patient understands he/she can follow-up even sooner if the symptoms don't improve or if other mental health issues develop. ER if any SI, HI.Recent VisitsDate Type Provider Dept06/24/23 Office Visit Tucker Arambula FNP [facility]11/30/22 Office Visit Tucker Arambula FNP [facility]07/27/22 Office Visit Tucker Arambula FNP [facility]06/01/22 Office Visit [facility]Showing recent visits within past 540 days with a meds authorizing provider and meeting all other requirementsFuture AppointmentsNo visits were found meeting these conditions.Showing future appointments within next 150 days with a meds authorizing provider and meeting all other requirements 58903-4Cfdexudit encounter GetiIV4086-20-11L85:23:59Telephone encounter NoteTXT1.2.840.179493.1.13.104.2.7. 2.434441|[id number] for patient aeev81257-8VyuuTFIMYCGGNLGVonntdsmg C-CDA narrative yrjp345114163Hnykh J Bunte [id number] 7KZYXHMWJRQIQBFXGXZLOPH7468-46-61C6 7:23:591.2.840.358602.1.72.3.15|1.2 .840.111895.1.13.104.2.7.2.727879_1 [id number] Ethel Hardin RN [facility] 2023-06-18 14:43:56 pumy/Qu9wBCmEBdO491s rUFIieccXxPDSw5 /hwFnKP+zWuxviQHIQvE/mKT4KGZi0052-2 4:43:56 Refill denied: Too soon to refillRequested Prescriptions Pending Prescriptions Disp Refills pantoprazole 40 mg EC tablet 60 tablet 0 Sig: Take 1 tablet by mouth in the morning and 1 tablet in the evening. Last fill date: 06/12/23 33848-2Kahgibvvh encounter JximJY3814-42-34W72:44:58Telephone encounter NoteTXT1.2.840.691733.1.13.104.2.7. 2.856101|[id number] for patient [id number] Flores [id number] 2EMDJTINYYTIXYTPZTKCSVJ6748-53-25B1 4:44:581.2.840.661643.1.72.3.15|1.2 .840.840800.1.13.104.2.7.2.727879_1 [id number] Alison Damon RISA [facility] 2023-05-30 08:34:12 CKKPFj/kJmqq7ZWPAebF Be5SNrIPMQGieuY xTFrKe0iEJrMNsR+NgNO54N9Y/Sq21215-2 08:34:12 Images from the original note were not included.Requested Renewals doxepin 50 mg capsule Sig: Take 1 capsule by mouth at bedtime. Disp: 45 capsule Refills: 0 Start: 05/28/2023 Class: eRX For: Anxiety, Excoriation (skin-picking) disorder Last ordered: 6 months ago (11/30/2022) by JAREN Bang Psychiatry: Antidepressants - Heterocyclics (TCAs) Failed 05/28/2023 02:32 PM Protocol Details Manual Review: Verify no changes in dose in the last 3 months Valid encounter within last 12 months To be filled at: [id number] [address] [facility] Recent VisitsDate Type Provider Dept 11/30/22 Office Visit Tucker Arambula FNP [facility] 07/27/22 Office Visit Tucker Arambula FNP [facility] 06/01/22 Office Visit Dorota Sawyer MD [facility] Showing recent visits within past 540 days with a meds authorizing provider and meeting all other requirementsFuture AppointmentsDate Type Provider Dept 06/03/23 Appointment Tucker Arambula FNP [facility] Showing future appointments within next 150 days with a meds authorizing provider and meeting all other requirements 95731-2Rhpviwtia encounter VowoAH7144-93-01M28:34:21Telephone encounter NoteTXT1.2.840.711742.1.13.104.2.7. 2.102399|[id number] for patient sxfo86196-8InfrEN728201483Qyacnnd M Fisher [address] Bf[id number] 0UCGHSGEYTTDQOEJCOCRIEK0281-65-70V6 8:34:211.2.840.308381.1.72.3.15|1.2 .840.259014.1.13.104.2.7.2.727879_1 [id number] Cece Dawson Replaced by [facility]"
[2023-11-18 12:01] LABS: Absolute Lymphocytes (CBC) 1.3 K/uL (0.7-4.9); Lymphocytes % 10.2 % (15.3-44.8); MCV 84.2 fL (80-100); MPV 8.1 fL (7.6-11.3); Platelets 423 thou/uL (152-406); RBC Red Blood Cell Count 5.11 M/uL (3.86-4.86)
[2023-11-18 12:06] LABS: Specific Gravity 1.013 (1.005-1.030); Urine Bacteria <20 /HPF (<20); Urine Bilirubin NEGATIVE (Negative); Urine Blood Negative (Negative); Urine Clarity Extremely Turbid (Clear); Urine Color Light-Yellow (Yellow); Urine Glucose NEGATIVE (Negative); Urine Mucus Slight /HPF (None Seen); Urine Protein NEGATIVE (Negative); Urine RBC <5 /HPF (None Seen); Urine Urobilinogen Normal (Normal)
[2023-11-18 12:17] LABS: Albumin 3.4 g/dL (3.4-5.0); Bilirubin Total 0.2 mg/dL (0.2-1.0); Potassium 3.1 mEq/L (3.5-5.1); Protein, Total 8.2 g/dL (6.4-8.2)
[2023-11-18 12:41] LABS: Blood Morphology Comment NOT SEEN (NOT SEEN); Platelet Estimate ADEQ; White Blood Cell Scan OK (OK)
--- NOTE | 2023-11-18 13:28 | RAD REPORT ---
EXAM DESCRIPTION: CT - Abdomen Pelvis W Contrast - 11/18/2023 12:31 pm CLINICAL HISTORY: Hx of PUD;Abd pain COMPARISON: Abdomen Pelvis W Contrast dated 08/10/2023 TECHNIQUE: Thin cut axial CT imaging of the abdomen and pelvis was performed following intravenous a dministration of 75 mL Isovue 300. Multiplanar reformats were generated and reviewed. All CT scans are performed using dose optimization technique as appropriate and may include automated exposure control or mA/KV adjustment according to patient size. FINDINGS: No suspicious findings in the lung bases. The liver, spleen, adrenal glands, and pancreas show no suspicious findings. Gallbladder was surgical ly removed. Persistent fat stranding along the adventitia of the gastric lesser curvature, with a poorly defined collection of fluid and gas with an air-fluid level, measuring 1.8 x 2.9 cm in greatest axial dimensi ons and 2.8 cm in greatest craniocaudal extent. Punctate foci of gas extending posteriorly, which may be communicating with the gastric lumen, see sagittal series 203, image 73. A small ovoid collection adjacent to the left liver lobe posterior capsule on axial image 19, measuring 1.5 x 1.0 cm. Symmetric renal function is seen with no hydronephrosis or suspicious renal mass. No dilated bowel loops or bowel wall thickening. No free air, free fluid or inflammatory stranding. N o hernia, mass, or small lymph nodes are present near the pylorus/ duodenal, measuring up to 1.3 cm, likely reactive/inflammatory. . The urinary bladder is without significant finding. No suspicious bony findings. IMPRESSION: Persistent inflammatory changes along the lesser curvature of the stomach, with a poorly defined collection fluid and gas measuring up to 2.9 cm in that region. Possible persistent communic ation with the gastric lumen. An additional 1.5 cm collection adjacent to the left liver lobe posterior capsule. No free air or ascites.
--- NOTE | 2023-11-18 14:18 | ER ---
Nurse's Notes [facility] Name: Ceci Ward Age: 43 yrs Sex: Female : 1980 Arrival Date: 11/18/2023 Time: 11:13 Bed 17 Private MD: Diagnosis: Chronic or unspecified peptic ulcer, site unspecified, with perforation-contained;Upper abdominal pain, unspecified Presentation: 11/18 11:23 Chief complaint: Patient states: coffee ground emesis since this morning with some ko1 bright red. Coronavirus screen: At this time, the client does not indicate any symptoms associated with coronavirus-19. Ebola Screen: No symptoms or risks identified at this time. Initial Sepsis Screen: Does the patient meet any 2 criteria? No. Patient's initial sepsis screen is negative. Does the patient have a suspected source of infection? No. Patient's initial sepsis screen is negative. Risk Assessment: Do you want to hurt yourself or someone else? Patient reports no desire to harm self or others. Onset of symptoms was November 18, 2023. 11:23 Method Of Arrival: Ambulatory ko1 11:23 Acuity: JES 3 ko1 Triage Assessment: 11:25 General: Appears uncomfortable, Behavior is calm, cooperative, appropriate for age. ko1 Pain: Complains of pain in abdomen. Historical: - Allergies: 11:25 Propoxyphene; ko1 11:25 Tylenol-Codeine; ko1 - Home Meds: 11:25 Protonix Oral [Active]; ko1 - PMHx: 11:25 gastric ulcers; ko1 - Immunization history:: Adult Immunizations up to date. - Social history:: Smoking status: Patient reports the use of cigarette tobacco products, smokes one pack cigarettes per day. Screenin:[facility] ED Fall Risk Assessment (Adult) History of falling in the last 3 months, mb9 including since admission No falls in past 3 months (0 pts) Confusion or Disorientation No (0 pts) Intoxicated or Sedated No (0 pts) Impaired Gait No (0 pts) Mobility Assist Device Used No (0 pt) Altered Elimination No (0 pt) Score/Fall Risk Level 0 - 2 = Low Risk Oriented to surroundings, Maintained a safe environment, Educated pt \T\ family on fall prevention, incl call for assistance when getting out of bed. Abuse screen: Denies threats or abuse. Nutritional screening: No deficits noted. Tuberculosis screening: No symptoms or risk factors identified. Assessment: 11:55 General: Appears unkempt, malnourished, Behavior is cooperative. Pain: Complains of mb9 pain in abdomen Pain does not radiate. Neuro: Rodriguez Agitation-Sedation Scale (RASS): 0 - Alert and Calm Level of Consciousness is awake, alert, obeys commands, Oriented to person, place, time, situation, Appropriate for age. Cardiovascular: Patient's skin is warm and dry. Respiratory: Airway is patent Respiratory effort is even, unlabored, Respiratory pattern is regular, symmetrical. GI: Abdomen is flat, non-distended, Bowel sounds present X 4 quads. Abd is soft and non tender X 4 quads. Reports nausea, vomiting. : No signs and/or symptoms were reported regarding the genitourinary system. EENT: No signs and/or symptoms were reported regarding the EENT system. Derm: Skin is pink, warm \T\ dry. Musculoskeletal: Range of motion: intact in all extremities. 13:00 Reassessment: PIV FAILED IN CT. MD NOTIFIED. bp 14:00 Reassessment: No changes from previously documented assessment. Patient is alert, bp oriented x 3, equal unlabored respirations, skin warm/dry/pink. 16:04 Reassessment: TRANSFER IN PROCESS. bp 17:15 Reassessment: [place] [id number] AT [facility], PLACED ON HOLD. bp Vital Signs: 11:23 BP 131 / 95; Pulse 114; Resp 18; Temp 98.4; Pulse Ox 95% ; ko1 14:15 BP 137 / 87; Pulse 87; Resp 16; Pulse Ox 95% ; bp 15:11 Weight 47.63 kg; ap3 15:13 BP 105 / 62; Pulse 78; Resp 16; Pulse Ox 95% ; bp 16:04 BP 124 / 79; Pulse 89; Resp 16; Pulse Ox 100% ; bp ED Course: 11:17 Patient arrived in ED. rg4 11:20 Jeet Marina DO is Attending Physician. ms3 11:25 Triage completed. ko1 11:25 Arm band placed on right wrist. Patient placed in an exam room, on a stretcher, on ko1 hospital monitor, on pulse oximetry, Patient notified of wait time. 11:27 Breneman, Janet, RN is Primary Nurse. mb9 11:27 Placed in gown. Bed in low position. Call light in reach. Side rails up X 1. Client mb9 placed on continuous cardiac and pulse oximetry monitoring. NIBP monitoring applied. 11:27 No provider procedures requiring assistance completed. mb9 11:55 CBC with Diff Sent. mb9 11:55 CMP Sent. mb9 11:55 Lipase Sent. mb9 11:55 Test, Urine Sent. mb9 11:55 Urinalysis w/ reflexes Sent. mb9 11:55 Missed attempt(s): 24 gauge in left forearm. Bleeding controlled, band aid applied, mb9 catheter tip intact. 11:55 Missed attempt(s): 22 gauge in right antecubital area. Bleeding controlled, band aid mb9 applied, catheter tip intact. 12:00 Primary Nurse role handed off by Dulce Molina, RUBA bp 12:00 Jose Dos Santos, RUBA is Primary Nurse. bp 12:00 Report given to RUBA Garcia. mb9 12:33 CT Abd/Pelvis - IV Contrast Only In Process Unspecified. EDMS 14:01 Inserted saline lock: 24 gauge in right forearm, using aseptic technique. bp 14:17 Memo Campos MD is Hospitalizing Provider. ms3 14:29 Benjamin Engle is Hospitalizing Provider. la1 17:03 Inserted 18g 10cm midline to right upper arm. as6 17:47 Patient transferred, IV remains in place. bp Administered Medications: 12:24 Drug: NS 0.9% IV 1000 ml IV at 1 bolus Per protocol; 1000 mL bolus Route: IV; Rate: 1 bp bolus; Site: right antecubital; 15:06 Follow up: IV Status: Completed infusion; IV Intake: 1000ml bp 12:24 Drug: Famotidine IVP 20 mg IVP once; dilute with 10 mL 0.9% NaCl; give over 2 minutes bp Route: IVP; Site: right antecubital; 15:07 Follow up: Response: No adverse reaction bp 12:24 Drug: Ondansetron IVP 4 mg IVP once; over 2 minutes Route: IVP; Site: right antecubital;bp 15:07 Follow up: Response: No adverse reaction bp 12:24 Drug: morphine IVP or IV 4 mg IVP once over 4 mins Route: IVP; Infused Over: 4 mins; bp Site: right antecubital; 15:06 Follow up: Response: No adverse reaction bp 14:49 CANCELLED (Duplicate Order): pantoprazole8 mg/hr IV at 25 ml/hr continuous; (Standard bp dilution is 80 mg in 250 mL NS) 15:06 Drug: Pantoprazole IVP 80 mg IVP once Route: IVP; Site: right forearm; bp 15:07 Drug: Pantoprazole IV 8 mg/hr IV at 25 ml/hr continuous; (Standard dilution is 80 mg in bp 250 mL NS) Route: IV; Rate: 25 ml/hr; Site: right forearm; 15:20 Drug: morphine IVP or IV 4 mg IVP once over 4 mins Route: IVP; Infused Over: 4 mins; bp Site: right forearm; 17:19 Drug: Rocephin IV 1 grams IV at calculated rate once; Given slow IV push per pharmacy bp instructions Route: IV; Rate: calculated rate; Site: right upper arm; 17:20 Drug: metroNIDAZOLE IVPB 500 mg 100 ml IVPB at 200 ml/hr once over 30 mins Volume: 100 bp ml; Route: IVPB; Rate: 200 ml/hr; Infused Over: 30 mins; Site: right upper arm; Intake: 15:06 IV: 1000ml; Total: 1000ml. bp Outcome: 14:17 Decision to Hospitalize by Provider. ms3 14:41 ER care complete, transfer ordered by MD. ms3 17:47 Transferred by ground EMS to [facility], Transfer form completed. bp Note: REPORT TO CECI YEH 17:47 Condition: stable 17:47 Instructed on the need for transfer, 18:36 Patient left the ED. bp Signatures: Dispatcher [employer] EDMS Addy Wade, FLEET SALES MANAGER-C FLEET SALES MANAGER-Reymundo1 Judie Barrera rg4 Jose Dos Santos RN RN bp Gloria Thao RN RN ap3 Jeet Marina DO DO ms3 Sina Cantu RN RN as6 Alyson Jackson RN RN ko1 Dulce Molina, RN RN mb9
--- NOTE | 2023-11-18 14:18 | EDPHYS ---
Physician Documentation [facility] Name: Ceci Ward Age: 43 yrs Sex: Female : 1980 Arrival Date: 11/18/2023 Time: 11:13 Bed 17 Private MD: ED Physician Jeet Marina HPI: 11/18 11:28 This 43 yrs old Female presents to ER via Ambulatory with complaints of Vomiting blood. ms3 11:28 43-year-old female with past medical history of peptic ulcer disease, chronic hip and ms3 neck pain presents to the emergency department for vomiting blood. Patient endorses 10/10 epigastric abdominal pain. Patient endorses nausea and vomiting. Patient denies diarrhea or black or bloody stools.. Historical: - Allergies: 11:25 Propoxyphene; ko1 11:25 Tylenol-Codeine; ko1 - Home Meds: 11:25 Protonix Oral [Active]; ko1 - PMHx: 11:25 gastric ulcers; ko1 - Immunization history:: Adult Immunizations up to date. - Social history:: Smoking status: Patient reports the use of cigarette tobacco products, smokes one pack cigarettes per day. ROS: 11:28 Constitutional: Negative for fever, and chills. Neck: Negative for injury, pain, and ms3 swelling, Cardiovascular: Negative for chest pain, and palpitations. Respiratory: Negative for shortness of breath, cough, wheezing, and pleuritic chest pain, 11:28 MS/Extremity: Negative for injury and deformity, Skin: Negative for injury, rash, and discoloration, 11:28 Abdomen/GI: Positive for abdominal pain, nausea and vomiting, 11:28 All other systems are negative, Exam: 11:28 Constitutional: This is a well developed, well nourished patient who is awake, alert, ms3 and in no acute distress. Head/Face: Normocephalic, atraumatic. Neck: Trachea midline, no cervical lymphadenopathy. Supple, full range of motion without nuchal rigidity, or vertebral point tenderness. No Meningismus. Chest/axilla: Normal chest wall appearance and motion. Nontender with no deformity. Respiratory: Lungs have equal breath sounds bilaterally, clear to auscultation and percussion. No rales, rhonchi or wheezes noted. No increased work of breathing, no retractions or nasal flaring. 11:28 Cardiovascular: Rate: tachycardic, Rhythm: regular, Pulses: no pulse deficits are appreciated, Heart sounds: normal, normal S1and S2, 11:28 Abdomen/GI: Inspection: abdomen appears normal, Bowel sounds: normal, Palpation: moderate abdominal tenderness, in the right upper quadrant and left upper quadrant, Vital Signs: 11:23 BP 131 / 95; Pulse 114; Resp 18; Temp 98.4; Pulse Ox 95% ; ko1 14:15 BP 137 / 87; Pulse 87; Resp 16; Pulse Ox 95% ; bp 15:11 Weight 47.63 kg; ap3 15:13 BP 105 / 62; Pulse 78; Resp 16; Pulse Ox 95% ; bp 16:04 BP 124 / 79; Pulse 89; Resp 16; Pulse Ox 100% ; bp MDM: 11:27 Patient medically screened. ms3 11:28 Differential diagnosis: gastritis, non-specific abd pain, pancreatitis, Peptic Ulcer ms3 Disease. 14:25 ED course: Patient with Ashwin patch from previous gastric ulcer perforation August from Dr. Worthington-I have reached out to Dr. Worthington in bleeding to call back prior to admission.. 14:25 Data reviewed: vital signs, nurses notes, lab test result(s), radiologic studies, and ms3 as a result, I will admit patient. Consideration of Admission/Observation Patient was admitted/placed on observation. Management of patient was discussed with the following: Hospitalist: Dr Campos. I considered the following discharge prescriptions or medication management in the emergency department Medications were administered in the Emergency Department. See MAR. Historians other than the Patient: Spouse/Significant Other: . Counseling: I had a detailed discussion with the patient and/or guardian regarding the historical points, exam findings, and any diagnostic results supporting the discharge/admit diagnosis, lab results, radiology results, the need for further work-up and treatment in the hospital. 14:43 ED course: Dr Canseco recommends transfer for gastric procedures that cannot be performed ms3 here for repeated peptic ulcer perforation per JAREN Mckeon. 16:48 ED course: Discussed case with Dr Arguello and he accepts patient to [facility].. ms3 11/18 11:28 Order name: CBC with Diff; Complete Time: 13:04 ms3 11/18 11:28 Order name: CMP; Complete Time: 13:04 ms3 11/18 11:28 Order name: Lipase; Complete Time: 13:04 ms3 11/18 11:28 Order name: Test, Urine; Complete Time: 13:04 ms3 11/18 11:28 Order name: Urinalysis w/ reflexes; Complete Time: 13:04 ms3 11/18 12:05 Order name: CBC Smear Scan; Complete Time: 13:04 EDMS 11/18 11:28 Order name: CT Abd/Pelvis - IV Contrast Only; Complete Time: 13:44 ms3 11/18 11:28 Order name: IV Saline Lock; Complete Time: 12:24 ms3 11/18 11:28 Order name: Labs collected and sent; Complete Time: 12:24 ms3 11/18 14:26 Order name: NPO; Complete Time: 15:06 la1 Administered Medications: 12:24 Drug: NS 0.9% IV 1000 ml IV at 1 bolus Per protocol; 1000 mL bolus Route: IV; Rate: 1 bp bolus; Site: right antecubital; 15:06 Follow up: IV Status: Completed infusion; IV Intake: 1000ml bp 12:24 Drug: Famotidine IVP 20 mg IVP once; dilute with 10 mL 0.9% NaCl; give over 2 minutes bp Route: IVP; Site: right antecubital; 15:07 Follow up: Response: No adverse reaction bp 12:24 Drug: Ondansetron IVP 4 mg IVP once; over 2 minutes Route: IVP; Site: right antecubital;bp 15:07 Follow up: Response: No adverse reaction bp 12:24 Drug: morphine IVP or IV 4 mg IVP once over 4 mins Route: IVP; Infused Over: 4 mins; bp Site: right antecubital; 15:06 Follow up: Response: No adverse reaction bp 14:49 CANCELLED (Duplicate Order): pantoprazole8 mg/hr IV at 25 ml/hr continuous; (Standard bp dilution is 80 mg in 250 mL NS) 15:06 Drug: Pantoprazole IVP 80 mg IVP once Route: IVP; Site: right forearm; bp 15:07 Drug: Pantoprazole IV 8 mg/hr IV at 25 ml/hr continuous; (Standard dilution is 80 mg in bp 250 mL NS) Route: IV; Rate: 25 ml/hr; Site: right forearm; 15:20 Drug: morphine IVP or IV 4 mg IVP once over 4 mins Route: IVP; Infused Over: 4 mins; bp Site: right forearm; 17:19 Drug: Rocephin IV 1 grams IV at calculated rate once; Given slow IV push per pharmacy bp instructions Route: IV; Rate: calculated rate; Site: right upper arm; 17:20 Drug: metroNIDAZOLE IVPB 500 mg 100 ml IVPB at 200 ml/hr once over 30 mins Volume: 100 bp ml; Route: IVPB; Rate: 200 ml/hr; Infused Over: 30 mins; Site: right upper arm; Disposition: 14:27 Co-signature as Attending Physician, Jeet Marina DO. ms3 Disposition Summary: 11/18/23 14:41 Transfer Ordered Notes: Transfer Location: Other Acute Care Facility ms3 Reason: Higher level of care ms3 Condition: Stable(11/18/23 14:41) ms3 Problem: new(11/18/23 14:41) ms3 Symptoms: are unchanged(11/18/23 14:41) ms3 Accepting Physician: (11/18/23 18:36) bp Diagnosis - Chronic or unspecified peptic ulcer, site unspecified, with perforation - contained ms3 - Upper abdominal pain, unspecified(11/18/23 14:41) ms3 Forms: - Medication Reconciliation Form ms3 - SBAR form ms3 Critical care time excluding procedures: 16:48 Critical care time: Bedside Care: 30 minutes, Consultation: 5 minutes, Family ms3 Intervention: 5 minutes. Total time: 40 minutes Signatures: Dispatcher [employer] EDFL Addy Wade, MUSIC DEPARTMENT CHAIR-C MUSIC DEPARTMENT CHAIR-Cla1 Isabella Alas, RN RN Jose Nesbitt, RN RN Jeet Martinez DO DO ms3 Alyson Jackson, RUBA RN ko1 Corrections: (The following items were deleted from the chart) 14:29 14:17 Laci Camposlachema ms3 la1 14:40 14:17 Inpatient Admission ms3 ms3 14:40 14:17 Telemetry/MedSurg (Inpatient) ms3 ms3 14:40 14:17 Stable ms3 ms3 14:40 14:17 new ms3 ms3 14:40 14:17 are unchanged ms3 ms3 14:40 14:17 Standard ms3 ms3 14:40 14:17 ms3 ms3 14:40 14:17 Acute peptic ulcer, site unspecified, with perforation - Contained ms3 ms3 14:40 14:17 Upper abdominal pain, unspecified ms3 ms3 14:40 14:29 Oniel Benjamin ram ms3 14:49 14:44 Pantoprazole IV 8 mg/hr IV at 25 ml/hr continuous; (Standard dilution is 80 mg in bp 250 mL NS) ordered. ms3 18:36 14:41 Dr ms3 bp
[2023-11-19 11:59] VITALS: BP 124/79; TEMP 98.4; O2SAT 100
== END ==
LOC: ER 11:13
DX: K27.5 Chronic or unspecified peptic ulcer, site unspecified, with perforation (principal); F17.210 Nicotine dependence, cigarettes, uncomplicated; Z88.5 Allergy status to narcotic agent; Z88.8 Allergy status to other drugs, medicaments and biological substances
CPT/HCPCS: 85025; 81001; 36415; 81025; 83690; 80053; 74177; Q9967; C9113 ×2; J2405; J7050; J7030; J0696

== ENCOUNTER → 2023-12-02 | Emergency (ER) | payer OTHER ==
[~2023-12-02] MED LIST changes: -CEFTRIAXONE 1000 MG/VIAL ONE; -METRONIDAZOLE 500mg IVPB 500 MG/100 ML BAG IV ONE; +NA CHLORIDE 0.9% 100 ML ONE; -PANTOPRAZOLE INJ 80 MG in NA CHLORIDE 0.9% 250 ML IV ONE; +PIPERACIL/TAZO 3.375 GM VIAL IV ONE
[2023-12-02 10:38] LABS: Absolute Lymphocytes (CBC) 1.2 K/uL (0.7-4.9); Hematocrit 36.2 % (36.0-45.0); Lymphocytes % 12.1 % (15.3-44.8); MCV 84.9 fL (80-100); MPV 8.4 fL (7.6-11.3); Platelets 435 thou/uL (152-406); RBC Red Blood Cell Count 4.27 M/uL (3.86-4.86)
[2023-12-02 10:40] LABS: Protime INR 1.23
--- NOTE | 2023-12-02 11:21 | RAD REPORT ---
EXAM DESCRIPTION: CT - Abdomen Pelvis W Contrast - 12/02/2023 10:36 am CLINICAL HISTORY: Abdominal pain COMPARISON: November 18, 2023 TECHNIQUE: Computed axial tomography of the abdomen pelvis was obtained. 100 cc Isovue-300 was admin istered intravenously. Oral contrast was not requested which limits evaluation of bowel and appendix All CT scans are performed using dose optimization technique as appropriate and may include automated exposure control or mA/KV adjustment according to patient size. FINDINGS: The liver, spleen, pancreas, adrenal and kidneys appear unremarkable. The wall of the gastric body is thickened. A possible ulceration posterior wall. Free air is not seen . No ascites is noted. The wall of the sigmoid colon appears mildly thickened. IMPRESSION: Thickening of the gastric body wall compatible with inflammation. Possible ulceration po sterior wall gastric body. No free air, abscess or ascites Mild apparent thickening wall of the sigmoid colon probably secondary to incomplete distention. Mild colitis can also this appearance
--- NOTE | 2023-12-02 11:26 | RAD REPORT ---
EXAM DESCRIPTION: Martin Single View12/02/2023 10:54 am CLINICAL HISTORY: Abdominal pain COMPARISON: 2022 FINDINGS: The lungs appear clear of acute infiltrate. The heart is normal size IMPRESSION: No acute abnormalities displayed
[2023-12-02 11:46] LABS: Albumin 3.1 g/dL (3.4-5.0); Bilirubin Total 0.3 mg/dL (0.2-1.0); Potassium 3.3 mEq/L (3.5-5.1); Protein, Total 7.7 g/dL (6.4-8.2)
--- NOTE | 2023-12-02 12:37 | ER ---
Nurse's Notes [facility] Name: Ceci Ward Age: 43 yrs Sex: Female : 1980 Arrival Date: 12/02/2023 Time: 09:32 Bed 14 Private MD: AVRIL RANDOLPH Diagnosis: Hematemesis Presentation: 12/02 09:40 Chief complaint: Patient states: Abdominal pain with vomiting blood started again last ll1 night. Admitted to [facility] Nov 30 for GI bleed. Coronavirus screen: Client denies travel out of the [place] in the last 14 days. At this time, the client does not indicate any symptoms associated with coronavirus-19. Ebola Screen: Patient denies travel to an Ebola-affected area in the 21 days before illness onset. Initial Sepsis Screen: Does the patient meet any 2 criteria? HR > 90 bpm. No. Patient's initial sepsis screen is negative. Does the patient have a suspected source of infection? Yes: Acute abdominal pain. Risk Assessment: Do you want to hurt yourself or someone else? Patient reports no desire to harm self or others. Onset of symptoms was December 01, 2023. 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 - Social history:: Smoking status: Patient reports the use of cigarette tobacco products, smokes one pack cigarettes per day. - Family history:: not pertinent. Screenin:32 [facility] ED Fall Risk Assessment (Adult) History of falling in the last 3 months, kc6 including since admission No falls in past 3 months (0 pts) Confusion or Disorientation No (0 pts) Intoxicated or Sedated No (0 pts) Impaired Gait No (0 pts) Mobility Assist Device Used No (0 pt) Altered Elimination No (0 pt) Score/Fall Risk Level 0 - 2 = Low Risk. Abuse screen: Denies threats or abuse. Denies injuries from another. Nutritional screening: No deficits noted. Tuberculosis screening: No symptoms or risk factors identified. Assessment: 10:32 General: Appears in no apparent distress. comfortable, well groomed, well developed, kc6 Behavior is calm, cooperative, appropriate for age. Pain: Complains of pain in abdomen diffusely Pain currently is 10 out of 10 on a pain scale. Neuro: Level of Consciousness is awake, alert, obeys commands, Oriented to person, place, time, situation, Appropriate for age. Cardiovascular: Denies chest pain, Heart tones S1 S2 present Capillary refill < 3 seconds Rhythm is sinus tachycardia. Respiratory: Airway is patent Trachea midline Respiratory effort is even, unlabored, Respiratory pattern is regular, symmetrical. GI: Abdomen is flat, non-distended, Bowel sounds present X 4 quads. Abd is soft X 4 quads Abdomen is tender to palpation X 4 quads. Reports bloody stool, nausea, vomiting, Patient currently denies diarrhea. : No signs and/or symptoms were reported regarding the genitourinary system. EENT: No signs and/or symptoms were reported regarding the EENT system. Derm: Skin is pink, warm \T\ dry. Rash noted that is on back, chest, abdomen, right arm, left arm, right leg and left leg. Musculoskeletal: No signs and/or symptoms reported regarding the musculoskeletal system. Circulation, motion, and sensation intact. Capillary refill < 3 seconds, Range of motion: intact in all extremities. 11:24 Reassessment: Patient appears in no apparent distress at this time. No changes from kc6 previously documented assessment. Patient and/or family updated on plan of care and expected duration. Pain level reassessed. Patient is alert, oriented x 3, equal unlabored respirations, skin warm/dry/pink. Vital Signs: 09:40 BP 115 / 101; Pulse 135; Resp 18; Temp 97.6; Pulse Ox 100% on R/A; Weight 48.08 kg; ll1 Height 5 ft. 4 in. ; Pain 10/10; 11:25 BP 130 / 93; Pulse 106; Resp 17 S; Pulse Ox 100% on R/A; kc6 12:30 BP 131 / 94; Pulse 108; Resp 12; Pulse Ox 99% on R/A; me1 13:00 BP 106 / 90; Pulse 106; Resp 16; Pulse Ox 98% on R/A; me1 14:00 BP 112 / 80; Pulse 89; Resp 14; Pulse Ox 99% on R/A; me1 15:00 BP 114 / 80; Pulse 105; Resp 14; Pulse Ox 99% on R/A; me1 09:40 Body Mass Index 18.19 (48.08 kg, 162.56 cm) ll1 09:40 Pain Scale: Adult ll1 ED Course: 09:33 Patient arrived in ED. rg4 09:34 AVRIL RANDOLPH is Private Physician. rg4 09:34 Fidel Apple MD is Attending Physician. rt 09:37 Shruthi Otero, RUBA is Primary Nurse. kc6 09:40 Arm band placed on Patient placed in an exam room, on a stretcher. ll1 09:42 Triage completed. ll1 10:16 Missed attempt(s): 22 gauge in right wrist. Missed attempt(s): 22 gauge in left wrist. kc6 Missed attempt(s): 20 gauge in left forearm. 10:17 Patient maintains SpO2 saturation greater than 95% on room air. kc6 10:31 Inserted saline lock: 22 gauge in right forearm, using aseptic technique. ,using kc6 aseptic technique. by Tara Ryan RN Blood collected. 10:32 Patient has correct armband on for positive identification. Bed in low position. Call kc6 light in reach. Side rails up X 1. Adult w/ patient. Client placed on continuous cardiac and pulse oximetry monitoring. NIBP monitoring applied. pan devulcanizer helper on. 10:38 CT Abd/Pelvis - IV Contrast Only In Process Unspecified. EDMS 10:56 Chest Single View XRAY In Process Unspecified. EDMS 12:47 initiated transfer to [facility]. bd 13:16 No provider procedures requiring assistance completed. me1 13:17 Provided Education on: POC. Verbalized understanding. . me1 13:49 pt accepted in transfer to [facility] by Dr Hendricks, admin approval given. bd 15:43 Patient transferred, IV remains in place. me1 Administered Medications: 10:31 Drug: NS 0.9% IV 1000 ml IV at 1 bolus Per protocol; 1000 mL bolus Route: IV; Rate: 1 kc6 bolus; Site: right forearm; 11:25 Follow up: Response: No adverse reaction; IV Status: Completed infusion; IV Intake: kc6 1000ml 10:31 Drug: morphine IVP or IV 4 mg IVP once over 4 mins Route: IVP; Infused Over: 4 mins; kc6 Site: right forearm; 11:25 Follow up: Response: No adverse reaction; Pain is unchanged, physician notified; RASS: kc6 Alert and Calm (0) 10:31 Drug: Ondansetron IVP 4 mg IVP once; over 2 minutes Route: IVP; Site: right forearm; kc6 11:25 Follow up: Response: No adverse reaction; Nausea is decreased; Vomiting decreased kc6 10:31 Drug: Famotidine IVP 20 mg IVP once; dilute with 10 mL 0.9% NaCl; give over 2 minutes kc6 Route: IVP; Site: right forearm; 11:25 Follow up: Response: No adverse reaction kc6 10:31 Drug: Pantoprazole IVP 80 mg IVP once Route: IVP; Site: right forearm; kc6 11:26 Follow up: Response: No adverse reaction kc6 10:47 Drug: Piperacillin-Tazobactam IVPB 3.375 grams IVPB once over 60 mins; (mix in NS 100 kc6 mL) Route: IVPB; Infused Over: 60 mins; Site: right forearm; 11:25 Follow up: Response: No adverse reaction; IV Status: Completed infusion; IV Intake: kc6 100ml 12:38 Drug: morphine IVP or IV 4 mg IVP once over 4 mins Route: IVP; Infused Over: 4 mins; as6 Site: right forearm; 12:46 Follow up: Response: No adverse reaction; Pain is decreased me1 15:13 Drug: morphine IVP or IV 4 mg IVP once over 4 mins Route: IVP; Infused Over: 4 mins; me1 Site: right wrist; 15:13 Follow up: Response: No adverse reaction me1 Medication: 13:17 VIS not applicable for this client. me1 Intake: 11:25 IV: 1000ml; Total: 1000ml. kc6 11:25 IV: 100ml; Total: 1100ml. kc6 Outcome: 12:37 ER care complete, transfer ordered by . rt 14:43 Transferred by ground [facility] to [facility], Transfer form completed. 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 Report called to La Tabares RN. 14:43 Condition: stable 14:43 Instructed on the need for transfer, 15:44 Patient left the ED. me1 Signatures: Dispatcher [employer] EDMS Nichole Blackmon Rubi rg4 Cora Ryan RN RN ll1 Sina Cantu, RUBA RN as6 Shruthi Otero RN RN kc6 Fidel Apple MD MD rt Ruma Parada, RUBA RN me1 Corrections: (The following items were deleted from the chart) 09:51 09:40 BP 115 / 101; Pulse 135bpm; Resp 18bpm; Pulse Ox 100% RA; 48.08 kg; Height 5 ft. ll1 4 in.; BMI: 18.1; Pain 10, Adult; ll1
--- NOTE | 2023-12-02 12:37 | EDPHYS ---
Physician Documentation [facility] [place] Name: Ceci Ward Age: 43 yrs Sex: Female : 1980 Arrival Date: 12/02/2023 Time: 09:32 Bed 14 Private MD: AVRIL RANDOLPH ED Physician Fidel Apple HPI: 12/02 11:17 This 43 yrs old Female presents to ER via Ambulatory with complaints of Abdominal Pain, rt Vomiting Blood. 11:17 Patient had recent mission with transfer for GI bleed with perforated gastric ulcer to rt [facility]. Patient states that since last night, she began to have vomiting, described as bright red, now dark red blood. Reports that epigastric pain similar in character to prior gastric ulcer started this morning prompted to come to the ED for further evaluation. Denies other acute complaints at this time, symptoms are severe in severity, no other aggravating or elevating factors.. 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 - Social history:: Smoking status: Patient reports the use of cigarette tobacco products, smokes one pack cigarettes per day. - Family history:: not pertinent. ROS: 11:17 Constitutional: Negative for fever, chills, and weight loss, Cardiovascular: Negative rt for chest pain, palpitations, and edema, Respiratory: Negative for shortness of breath, cough, wheezing, and pleuritic chest pain, MS/Extremity: Negative for injury and deformity, Skin: Negative for injury, rash, and discoloration, Neuro: Negative for headache, weakness, numbness, tingling, and seizure, Psych: Negative for depression, anxiety, suicide ideation, homicidal ideation, and hallucinations, 11:17 Abdomen/GI: Positive for abdominal pain, nausea and vomiting, hematemesis, Exam: 11:17 Constitutional: This is a well developed, well nourished patient who is awake, alert, rt and in no acute distress. Head/Face: Normocephalic, atraumatic. Chest/axilla: Normal chest wall appearance and motion. Nontender with no deformity. No lesions are appreciated. Cardiovascular: Regular rate and rhythm with a normal S1 and S2. No gallops, murmurs, or rubs. Normal PMI, no JVD. No pulse deficits. Respiratory: Lungs have equal breath sounds bilaterally, clear to auscultation and percussion. No rales, rhonchi or wheezes noted. No increased work of breathing, no retractions or nasal flaring. Skin: Warm, dry with normal turgor. Normal color with no rashes, no lesions, and no evidence of cellulitis. MS/ Extremity: Pulses equal, no cyanosis. Neurovascular intact. Full, normal range of motion. Neuro: Awake and alert, GCS 15, oriented to person, place, time, and situation. Cranial nerves II-XII grossly intact. Motor strength 5/5 in all extremities. Sensory grossly intact. Cerebellar exam normal. Normal gait. Psych: Awake, alert, with orientation to person, place and time. Behavior, mood, and affect are within normal limits. 11:17 ECG was reviewed by the Attending Physician. 11:17 Abdomen/GI: Tenderness throughout the abdomen, guarding, distention noted, Vital Signs: 09:40 BP 115 / 101; Pulse 135; Resp 18; Temp 97.6; Pulse Ox 100% on R/A; Weight 48.08 kg; ll1 Height 5 ft. 4 in. ; Pain 10/10; 11:25 BP 130 / 93; Pulse 106; Resp 17 S; Pulse Ox 100% on R/A; kc6 12:30 BP 131 / 94; Pulse 108; Resp 12; Pulse Ox 99% on R/A; me1 13:00 BP 106 / 90; Pulse 106; Resp 16; Pulse Ox 98% on R/A; me1 14:00 BP 112 / 80; Pulse 89; Resp 14; Pulse Ox 99% on R/A; me1 15:00 BP 114 / 80; Pulse 105; Resp 14; Pulse Ox 99% on R/A; me1 09:40 Body Mass Index 18.19 (48.08 kg, 162.56 cm) ll1 09:40 Pain Scale: Adult ll1 MDM: 09:42 Patient medically screened. rt 17:38 Differential Diagnosis Hematemesis, upper GI bleed, gastric ulcer, perforation. Data rt reviewed: vital signs, nurses notes, lab test result(s), radiologic studies. Consideration of Admission/Observation Escalation of care including admission/observation considered. 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 I considered the following discharge prescriptions or medication management in the emergency department Medications were administered in the Emergency Department. See MAR. Independent interpretation of the following test(s) in the Emergency Department CT Scan: My interpretation is No peritoneal air seen my interpretation of CT scan images. Care significantly affected by the following chronic conditions: Gastric ulcer. Counseling: I had a detailed discussion with the patient and/or guardian regarding the historical points, exam findings, and any diagnostic results supporting the discharge/admit diagnosis, lab results, radiology results, the need to transfer to another facility. Response to treatment: the patient's symptoms have mildly improved after treatment. 12/02 09:49 Order name: Blood Culture Adult (2) rt 12/02 09:49 Order name: CBC with Diff; Complete Time: 10:48 rt 12/02 09:49 Order name: CMP; Complete Time: 12:06 12/02 09:49 Order name: Lactate w/ 2H reflex if indic.; Complete Time: 10:50 rt 12/02 09:49 Order name: Protime (+inr); Complete Time: 10:48 12/02 09:49 Order name: Ptt, Activated; Complete Time: 10:48 12/02 09:49 Order name: Chest Single View XRAY; Complete Time: 11:27 12/02 09:49 Order name: CT Abd/Pelvis - IV Contrast Only; Complete Time: 11:27 12/02 09:49 Order name: EKG; Complete Time: 09:50 rt 12/02 09:49 Order name: Accucheck; Complete Time: 10:31 12/02 09:49 Order name: Cardiac monitoring; Complete Time: 09:51 rt 12/02 09:49 Order name: EKG - Nurse/Tech; Complete Time: 09:51 rt 12/02 09:49 Order name: IV Saline Lock - Large Bore; Complete Time: 10:31 rt 12/02 09:49 Order name: Labs collected and sent; Complete Time: 10:31 12/02 09:49 Order name: O2 Per Protocol; Complete Time: 09:51 rt 12/02 09:49 Order name: O2 Sat Monitoring; Complete Time: 09:51 rt 12/02 09:49 Order name: Vital Signs; Complete Time: :51 rt 12/02 10:42 Order name: Labs - recollect needed: recollect light green top; Complete Time: 11:14 bd EC:17 Rate is 137 beats/min. Rhythm is regular, Sinus tachycardia with No ectopy. QRS [place] is rt Normal. NH interval is normal. QRS interval is normal. QT interval is normal. No Q waves. T waves are Normal. No ST changes noted. Interpreted by me. Administered Medications: 10:31 Drug: NS 0.9% IV 1000 ml IV at 1 bolus Per protocol; 1000 mL bolus Route: IV; Rate: 1 kc6 bolus; Site: right forearm; 11:25 Follow up: Response: No adverse reaction; IV Status: Completed infusion; IV Intake: kc6 1000ml 10:31 Drug: morphine IVP or IV 4 mg IVP once over 4 mins Route: IVP; Infused Over: 4 mins; kc6 Site: right forearm; 11:25 Follow up: Response: No adverse reaction; Pain is unchanged, physician notified; RASS: kc6 Alert and Calm (0) 10:31 Drug: Ondansetron IVP 4 mg IVP once; over 2 minutes Route: IVP; Site: right forearm; kc6 11:25 Follow up: Response: No adverse reaction; Nausea is decreased; Vomiting decreased kc6 10:31 Drug: Famotidine IVP 20 mg IVP once; dilute with 10 mL 0.9% NaCl; give over 2 minutes kc6 Route: IVP; Site: right forearm; 11:25 Follow up: Response: No adverse reaction kc6 10:31 Drug: Pantoprazole IVP 80 mg IVP once Route: IVP; Site: right forearm; kc6 11:26 Follow up: Response: No adverse reaction kc6 10:47 Drug: Piperacillin-Tazobactam IVPB 3.375 grams IVPB once over 60 mins; (mix in NS 100 kc6 mL) Route: IVPB; Infused Over: 60 mins; Site: right forearm; 11:25 Follow up: Response: No adverse reaction; IV Status: Completed infusion; IV Intake: kc6 100ml 12:38 Drug: morphine IVP or IV 4 mg IVP once over 4 mins Route: IVP; Infused Over: 4 mins; as6 Site: right forearm; 12:46 Follow up: Response: No adverse reaction; Pain is decreased me1 15:13 Drug: morphine IVP or IV 4 mg IVP once over 4 mins Route: IVP; Infused Over: 4 mins; me1 Site: right wrist; 15:13 Follow up: Response: No adverse reaction me1 Disposition Summary: 12/02/23 12:37 Transfer Ordered Notes: Transfer Location: [facility] rt Reason: Higher level of care rt Condition: Stable rt Problem: an ongoing problem rt Symptoms: have improved rt Accepting Physician: (12/02/23 15:44) me1 Diagnosis - Hematemesis rt Forms: - Medication Reconciliation Form rt - SBAR form rt Signatures: Dispatcher [employer] EDNichole Herrera Lee, EDUCATIONAL AIDE-C EDUCATIONAL AIDE-Cla1 Cora Ryan RN RN ll1 Sina Cantu RN RN as6 Shruthi Otero RN RN kc6 Fidel Apple MD MD rt Ruma Parada RN RN me1 Corrections: (The following items were deleted from the chart) 15:44 12:37 rt me1
[2023-12-02 16:08] VITALS: BP 114/80; TEMP 97.6; O2SAT 99
--- NOTE | 2023-12-05 16:18 | EKG ---
Test Date: 2023-12-02 Test Time: 09:46:35 Volumetric Weigher: JANET MEASUREMENT RESULTS: Intervals: Rate: 137 AK: 112 QRSD: 72 QT: 302 QTc: 456 [place]: P: 81 AK: 112 QRS: 91 T: 22 INTERPRETIVE STATEMENTS: Sinus tachycardia Otherwise normal ECG Compared to ECG 08/04/2023 20:37:20 Atrial abnormality no longer present Electronically Signed On 12-05-23 16:08:42 IMAGERY ANALYST by Duane Fernando
== END ==
LOC: ER 09:32
DX: K92.0 Hematemesis (principal); F17.210 Nicotine dependence, cigarettes, uncomplicated; Z88.5 Allergy status to narcotic agent; Z88.8 Allergy status to other drugs, medicaments and biological substances
CPT/HCPCS: 87040 ×2; 85025; 36415; 85610; 83605; 85730; 80053; 74177; 71045; Q9967; J2543; C9113; J2405; J7030; 93005; 99285

== ENCOUNTER 2023-12-29 18:38 | Inpatient (IN) | payer OTHER ==
[2023-12-29] MEDS ORDERED: NA CHLORIDE 0.9% 1,000 ML ONE (20:56)
[2023-12-29] MEDS ORDERED: IPRATROPIUM BROM 0.5MG/2.5ML ONE (20:56)
[2023-12-29 21:47] LABS: Absolute Basophils 0.1 K/uL (0-0.5); Absolute Eosinophils 0.2 K/uL (0-0.5); Absolute Lymphocytes (CBC) 1.8 K/uL (0.7-4.9); Absolute Monocytes 0.4 K/uL (0.1-1.3); Absolute Neutrophil 6.6 K/uL (1.8-8.0); Basophils % 1.2 % (0-1.3); Eosinophils % 2.3 % (0-4.4); Hematocrit 30.9 % (36.0-45.0); Hemoglobin 10.1 g/dL (12.0-15.0); Lymphocytes % 19.9 % (15.3-44.8); MCH 26.4 pg (27.0-35.0); MCHC 32.5 g/dL (32.0-36.0); MCV 81.2 fL (80-100); Monocytes % 4.9 % (3.3-12.3); Neutrophils % 71.7 % (41.7-73.7); Nucleated Red Blood Cells % 0.1 % (0-0); Platelets 755 thou/uL (152-406); RBC Red Blood Cell Count 3.81 M/uL (3.86-4.86); Red Cell Distribution Width 17.9 % (12.1-15.2)
[2023-12-29 21:53] LABS: Specific Gravity > 1.030 (1.005-1.030); Sqamous Epithelial <5 /HPF (None Seen); Urine Bacteria None Seen /HPF (<20); Urine Bilirubin NEGATIVE (Negative); Urine Blood Negative (Negative); Urine Clarity Turbid (Clear); Urine Color Yellow (Yellow); Urine Culture Reflex Order NOT NEEDED; Urine Glucose NEGATIVE (Negative); Urine Ketones 1+ (Negative); Urine Microscopic Reflex YN ORDER UMIC; Urine Mucus 1+ /HPF (None Seen); Urine Nitrite NEGATIVE (Negative); Urine Protein 1+ (Negative); Urine RBC <5 /HPF (None Seen); Urine Urobilinogen Normal (Normal); Urine WBC <5 /HPF (<5); Urine pH 5.5 (5.0-7.0)
[2023-12-29 22:05] LABS: ALT/SGPT 13 U/L (13-56); AST/SGOT 29 U/L (15-37); Albumin 1.8 g/dL (3.4-5.0); Albumin/Globulin Ratio 0.4 (1.1-1.8); Alkaline Phosphatase 477 U/L (45-117); Anion Gap 6.4 mEq/L (5.0-15.0); BUN Blood Urea Nitrogen 12 mg/dL (7-18); Bicarbonate 29 mEq/L (21-32); Bilirubin Total 0.2 mg/dL (0.2-1.0); Globulin 4.1 g/dL (2.3-3.5); Glomerular Filtration Rate 119 ml/min (=/>90); Glucose Level 94 mg/dL (74-106); Potassium 3.4 mEq/L (3.5-5.1); Protein, Total 5.9 g/dL (6.4-8.2); Sodium Level 140 mEq/L (136-145)
[2023-12-29 22:07] LABS: Troponin High Sensitivity < 3.0 pg/mL (<58.9)
[2023-12-29] MEDS ORDERED: FENTANYL CITR 100 MCG/2 ML ONE (22:16)
--- NOTE | 2023-12-29 22:25 | RAD REPORT ---
[facility]35 [facility] CLINICAL HISTORY: SOB COMPARISON: Chest Single View dated 12/02/2023; Chest Single View dated 08/12/2023; Chest Single View dated 08/11/2023; Abdomen 1 View (KUB) dated 08/10/2023 TECHNIQUE: Portable AP view of the chest. FINDINGS: Patchy opacities throughout the right mid to lower lung. No pneumothorax or effusion. The cardiomediastinal contours are unremarkable. IMPRESSION: Patchy opacities throughout the right mid to lower lung, concerning for pneumonia.
[2023-12-29 23:02] LABS: PT Prothrombin Time 36.7 SECONDS (9.5-12.5); PTT, Activated Partial Thromb 54.9 SECONDS (24.3-36.9); Protime INR 3.46
[2023-12-29] MEDS ORDERED: CEFTRIAXONE 1000 MG/VIAL ONE (23:27)
[2023-12-29] MEDS ORDERED: AZITHROMYCIN 500 MG INJ IVPB ONE (23:27)
[2023-12-29] MEDS ORDERED: NA CHLORIDE 0.9% 250 ML ONE (23:28)
[2023-12-29] MEDS ORDERED: NICOTINE 21 MG/PAT TD ONE (23:53)
--- NOTE | 2023-12-30 00:40 | ER ---
Nurse's Notes [facility] Name: Ceci Ward Age: 43 yrs Sex: Female : 1980 Arrival Date: 12/29/2023 Time: 18:38 Bed 5 Private MD: Diagnosis: Pneumonia, unspecified organism;Other specified complications of surgical and medical care, not elsewhere classified Presentation: 12/28 19:02 Chief complaint: SOB, subjective fever x 4 days. Pt had abdominal surgery for gastric hb ulcer + and part of intestines removed 3 weeks ago, large incision with rei still in place noted. Coronavirus screen: At this time, the client does not indicate any symptoms associated with coronavirus-19. Ebola Screen: No symptoms or risks identified at this time. Initial Sepsis Screen: Does the patient meet any 2 criteria? No. Patient's initial sepsis screen is negative. Does the patient have a suspected source of infection? No. Patient's initial sepsis screen is negative. Risk Assessment: Do you want to hurt yourself or someone else? Patient reports no desire to harm self or others. Onset of symptoms was December 25, 2023. 19:02 Method Of Arrival: Ambulatory hb 19:02 Acuity: JES 2 hb Triage Assessment: 19:05 General: Appears ill, Behavior is calm, cooperative. Pain: Pain currently is 9 out of hb 10 on a pain scale. Neuro: Level of Consciousness is awake, alert, obeys commands, Oriented to person, place, time, situation. Cardiovascular: Patient's skin is warm and dry. Respiratory: Respiratory effort is even, unlabored, Respiratory pattern is. GI: Reports lower abdominal pain, upper abdominal pain, nausea. 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 - Social history:: Smoking status: Patient reports the use of cigarette tobacco products, smokes two packs cigarettes per day. - History obtained from: significant other. Screenin:45 [facility] ED Fall Risk Assessment (Adult) History of falling in the last 3 months, pf1 including since admission No falls in past 3 months (0 pts) Confusion or Disorientation No (0 pts) Intoxicated or Sedated No (0 pts) Impaired Gait No (0 pts) Mobility Assist Device Used No (0 pt) Altered Elimination No (0 pt) Score/Fall Risk Level 0 - 2 = Low Risk Oriented to surroundings, Maintained a safe environment, Educated pt \T\ family on fall prevention, incl call for assistance when getting out of bed, Assessed \T\ reinforced patient's understanding of fall precautions, Provided non-skid footwear, Hourly rounding (assess needs \T\ fall precautionary measures) done, Used ambulatory aids as needed (educated on \T\ assisted with), Used gait belt as appropriate. 19:45 Abuse screen: Denies threats or abuse. Nutritional screening: No deficits noted. pf1 Tuberculosis screening: No symptoms or risk factors identified. Assessment: 19:44 General: Appears in no apparent distress. comfortable, unkempt, well developed, pf1 Behavior is calm, cooperative, appropriate for age, quiet. 19:44 Pain: Complains of pain in abdomen Pain currently is 9 out of 10 on a pain scale. Pain pf1 began 3 weeks ago. Neuro: No deficits noted. Level of Consciousness is awake, alert, obeys commands, Oriented to person, place, time, situation. Cardiovascular: No deficits noted. Capillary refill < 3 seconds Patient's skin is warm and dry. Respiratory: Reports shortness of breath Airway is patent Respiratory effort is even, unlabored, Respiratory pattern is regular, symmetrical. GI: Abdomen is flat, non-distended, Patient has rei from surgery 3 weeks ago with green drainage coming from surgical site x 5 days. : No deficits noted. No signs and/or symptoms were reported regarding the genitourinary system. EENT: No deficits noted. No signs and/or symptoms were reported regarding the EENT system. Derm: Wound noted abdomen Wound is rei to mid abdominal region from surgery 3 weeks ago. Reports pain that is 9 out of 10 on a pain scale. with green discharge coming from surgical site. Derm: patient's has generalized scarring from old sores. Musculoskeletal: No deficits noted. No signs and/or symptoms reported regarding the musculoskeletal system. 20:50 Reassessment: Patient appears in no apparent distress at this time. Patient and/or pf1 family updated on plan of care and expected duration. Pain level reassessed. Patient is alert, oriented x 3, equal unlabored respirations, skin warm/dry/pink. 22:00 Reassessment: No changes from previously documented assessment. Patient and/or family vc1 updated on plan of care and expected duration. Pain level reassessed. Patient is alert, oriented x 3, equal unlabored respirations, skin warm/dry/pink. 23:00 Reassessment: No changes from previously documented assessment. Patient and/or family vc1 updated on plan of care and expected duration. Pain level reassessed. Patient is alert, oriented x 3, equal unlabored respirations, skin warm/dry/pink. 12/29 00:00 Reassessment: No changes from previously documented assessment. Patient and/or family vc1 updated on plan of care and expected duration. Pain level reassessed. Patient is alert, oriented x 3, equal unlabored respirations, skin warm/dry/pink. 00:44 Reassessment: No changes from previously documented assessment. Patient and/or family vc1 updated on plan of care and expected duration. Pain level reassessed. Patient is alert, oriented x 3, equal unlabored respirations, skin warm/dry/pink. 01:40 Reassessment: Patient appears in no apparent distress at this time. Patient and/or pf1 family updated on plan of care and expected duration. Pain level reassessed. Patient is alert, oriented x 3, equal unlabored respirations, skin warm/dry/pink. Patient states symptoms have improved. 02:30 Reassessment: Patient appears in no apparent distress at this time. Patient and/or pf1 family updated on plan of care and expected duration. Pain level reassessed. Patient is alert, oriented x 3, equal unlabored respirations, skin warm/dry/pink. Patient states symptoms have improved. 03:11 Reassessment: Patient appears in no apparent distress at this time. Patient and/or pf1 family updated on plan of care and expected duration. Pain level reassessed. Patient is alert, oriented x 3, equal unlabored respirations, skin warm/dry/pink. 04:00 Reassessment: Patient appears in no apparent distress at this time. No changes from vc1 previously documented assessment. Patient and/or family updated on plan of care and expected duration. Pain level reassessed. Vital Signs: 12/28 19:02 BP 102 / 73; Pulse 121; Resp 24; Temp 98.9(O); Pulse Ox 95% on R/A; Weight 45.36 kg; hb Height 5 ft. 4 in. ; Pain 9/10; 20:30 BP 103 / 65; Pulse 101; Resp 18; Temp 98.8; Pulse Ox 94% on R/A; Pain 9/10; pf1 21:30 BP 94 / 73; Pulse 102; Resp 14; Pulse Ox 93% ; vc1 22:30 BP 100 / 67; Pulse 91; Resp 12; Pulse Ox 97% ; vc1 23:30 BP 104 / 72; Pulse 101; Resp 17; Pulse Ox 97% ; vc1 12/29 00:30 BP 97 / 68; Pulse 99; Resp 12; Pulse Ox 93% on R/A; vc1 01:30 BP 99 / 67; Pulse 89; Resp 18; Pulse Ox 97% on 2 lpm NC; Pain 2/10; pf1 02:30 BP 99 / 64; Pulse 89; Resp 14; Pulse Ox 96% on 2 lpm NC; Pain 4/10; pf1 03:00 BP 98 / 66; Pulse 87; Resp 16; Temp 97.9; Pulse Ox 96% on 2 lpm NC; Pain 4/10; pf1 04:30 BP 108 / 70; Pulse 66; Resp 16; Pulse Ox 99% ; vc1 12/28 19:02 Body Mass Index 17.16 (45.36 kg, 162.56 cm) hb 12/28 19:02 Pain Scale: Adult hb 20:30 Pain Scale: Adult pf1 01:30 Pain Scale: Adult pf1 02:30 Pain Scale: Adult pf1 03:00 Pain Scale: Adult pf1 ED Course: 12/28 18:42 Patient arrived in ED. im 18:56 Yulia De La Torre FNP-C is PHCP. kb 18:56 Yulia De La Torre FNP-C is PHCP. kb 18:57 Titus Hamilton MD is Attending Physician. kb 19:05 Triage completed. hb 19:05 Arm band placed on. hb 19:50 Door closed. Noise minimized. Warm blanket given. pf1 19:55 Pillow given. pf1 20:31 Jarvis Smith is Attending Physician. ci 20:47 EKG done, by cartographic technician. pf1 20:47 No provider procedures requiring assistance completed. pf1 20:55 Missed attempt(s): 22 gauge Bleeding controlled, band aid applied, catheter tip intact. oe 21:00 Side rails up X2. oe 21:00 Wound culture swab sent to lab. pf1 21:00 Missed attempt(s): 22 gauge Bleeding controlled, band aid applied, catheter tip intact. oe 21:03 Wound Culture Sent. pf1 21:20 Urine collected: clean catch specimen, clear, silvia colored. pf1 21:31 Inserted saline lock: 22 gauge in right forearm, using aseptic technique. Blood pf1 collected. 21:38 Chest Single View XRAY In Process Unspecified. EDMS 21:46 First set of blood cultures drawn by me, Second set of blood cultures drawn by me. pf1 12/29 00:43 Brittany Kirk RN is Primary Nurse. vc1 01:08 Aysha Arguello MD is Hospitalizing Provider. ci 01:26 Test, Urine Sent. pf1 01:35 CT Chest For PE Angio In Process Unspecified. EDMS 01:35 CT Abd/Pelvis - IV Contrast Only In Process Unspecified. EDMS 02:10 Provided Education on: need for admit. pf1 03:11 Patient admitted, IV remains in place. pf1 Administered Medications: 12/28 21:03 Drug: Ipratropium Inhalation Aerosol 0.5 mg Inhalation once Route: Inhalation; pf1 22:00 Follow up: Response: No adverse reaction; Marked relief of symptoms pf1 21:50 Drug: NS 0.9% IV 1000 ml IV at 1000 ml once Route: IV; Rate: 1000 ml; Site: right pf1 forearm; 22:50 Follow up: IV Status: Completed infusion; IV Intake: 1000ml vc1 22:50 Follow up: Response: No adverse reaction; Marked relief of symptoms pf1 22:20 Drug: fentaNYL (PF) IVP 25 mcg IVP once Route: IVP; Site: right forearm; pf1 12/29 00:47 Follow up: Response: No adverse reaction; Marked relief of symptoms vc1 12/28 23:30 Drug: Rocephin IV 1 grams IV at calculated rate once; Given slow IV push per pharmacy vc1 instructions Route: IV; Rate: calculated rate; Site: right forearm; 23:35 Follow up: IV Status: Completed infusion; IV Intake: 10ml vc1 23:36 Drug: AZITHromycin IVPB 500 mg IVPB once over 1 hrs; (mix in 250 mL NS) Route: IVPB; jb4 Infused Over: 1 hrs; Site: right antecubital; 12/29 00:46 Follow up: IV Status: Completed infusion; IV Intake: 250ml vc1 12/28 23:54 Not Given (Other Intervention Used): nicotinepatch 14 mg/24 hr 1 patches Transdermal jb4 once 23:57 Drug: Nicoderm CQ Transdermal Patch 21 mg/24 hr 1 patches Transdermal once {Note: right jb4 upper arm.} Route: Transdermal; Site: affected area; 12/29 00:50 Follow up: Response: No adverse reaction; Marked relief of symptoms pf1 Medication: 00:46 VIS not applicable for this client. vc1 Intake: 12/28 22:50 IV: 1000ml; Total: 1000ml. vc1 23:35 IV: 10ml; Total: 1010ml. vc1 12/29 00:46 IV: 250ml; Total: 1260ml. vc1 Outcome: 00:40 ER care complete, transfer ordered by MD. ci 01:09 Decision to Hospitalize by Provider. ci 03:11 Admitted to ER Hold. Please see [facility] for further documentation. pf1 03:11 Condition: stable 03:11 Instructed on the need for admit, Demonstrated understanding of instructions, pf1 05:35 Patient left the ED. vc1 Signatures: Dispatcher [employer] EDYulia Matta, JAREN-C TRUST MAIL CLERK-Shira Moore RN RN Shahriar Martin RN RN jb4 Sami Schulte Vanessa, RN RN vc1 Kari Weber RN RN pf1 Edyta Meyers Chizite ci
--- NOTE | 2023-12-30 00:40 | EDPHYS ---
Physician Documentation [facility] [place] Name: Ceci Ward Age: 43 yrs Sex: Female : 1980 Arrival Date: 12/29/2023 Time: 18:38 Bed 5 Private MD: ED Physician Jarvis Smith HPI: 12/28 20:53 This 43 yrs old Female presents to ER via Ambulatory with complaints of Suture Recheck, ci Suture Removal, Shortness Of Breath. 20:53 Patient is a 43-year-old female with PMH gastric ulcer with perforation s/p ex lap at [facility] 3 weeks ago who presents for shortness of breath, wheezing and subjective fever for 4 days. Patient's boyfriend at bedside reports she had lung damage 5 months ago has had some wheezing. Patient also concerned about an infection because her abdominal surgical site rei came out and looks infected. 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 - Social history:: Smoking status: Patient reports the use of cigarette tobacco products, smokes two packs cigarettes per day. - History obtained from: significant other. ROS: 20:53 Cardiovascular: Negative for chest pain, edema, orthopnea, palpitations, ci 20:53 Respiratory: Positive for shortness of breath, wheezing, 20:53 Skin: Positive for erythema, lesions, Exam: 12/29 00:40 Constitutional: This is a well developed, well nourished patient who is awake, alert, ci and in no acute distress. Head/Face: Normocephalic, atraumatic. Eyes: Pupils equal round and reactive to light, extra-ocular motions intact. Lids and lashes normal. Conjunctiva and sclera are non-icteric and not injected. Cornea within normal limits. Periorbital areas with no swelling, redness, or edema. ENT: Nares patent. No nasal discharge, no septal abnormalities noted. Tympanic membranes are normal and external auditory canals are clear. Oropharynx with no redness, swelling, or masses, exudates, or evidence of obstruction, uvula midline. Mucous membranes moist. Neck: Trachea midline, no thyromegaly or masses palpated, and no cervical lymphadenopathy. Supple, full range of motion without nuchal rigidity, or vertebral point tenderness. No Meningismus. Chest/axilla: Normal chest wall appearance and motion. Nontender with no deformity. No lesions are appreciated. Cardiovascular: Tachycardic but regular with a normal S1 and S2. No gallops, murmurs, or rubs. Normal PMI, no JVD. No pulse deficits. Respiratory: Rhonchi bilaterally, respirations even and unlabored, slightly hypoxic, placed on 2 L O2 Abdomen/GI: Soft, non-tender, with normal bowel sounds. No distension or tympany. No guarding or rebound. No evidence of tenderness throughout. Midline surgical site present. Some small wound dehiscence with evidence of infection, purulent drainage present. Back: No spinal tenderness. No costovertebral tenderness. Full range of motion. Skin: Warm, dry with normal turgor. Normal color with no rashes, no lesions, and no evidence of cellulitis. MS/ Extremity: Pulses equal, no cyanosis. Neurovascular intact. Full, normal range of motion. Neuro: Awake and alert, GCS 15, oriented to person, place, time, and situation. Cranial nerves II-XII grossly intact. Motor strength 5/5 in all extremities. Sensory grossly intact. Cerebellar exam normal. Normal gait. Psych: Awake, alert, with orientation to person, place and time. Behavior, mood, and affect are within normal limits. Vital Signs: 12/28 19:02 BP 102 / 73; Pulse 121; Resp 24; Temp 98.9(O); Pulse Ox 95% on R/A; Weight 45.36 kg; hb Height 5 ft. 4 in. ; Pain 9/10; 20:30 BP 103 / 65; Pulse 101; Resp 18; Temp 98.8; Pulse Ox 94% on R/A; Pain 9/10; pf1 21:30 BP 94 / 73; Pulse 102; Resp 14; Pulse Ox 93% ; vc1 22:30 BP 100 / 67; Pulse 91; Resp 12; Pulse Ox 97% ; vc1 23:30 BP 104 / 72; Pulse 101; Resp 17; Pulse Ox 97% ; vc1 12/29 00:30 BP 97 / 68; Pulse 99; Resp 12; Pulse Ox 93% on R/A; vc1 01:30 BP 99 / 67; Pulse 89; Resp 18; Pulse Ox 97% on 2 lpm NC; Pain 2/10; pf1 02:30 BP 99 / 64; Pulse 89; Resp 14; Pulse Ox 96% on 2 lpm NC; Pain 4/10; pf1 03:00 BP 98 / 66; Pulse 87; Resp 16; Temp 97.9; Pulse Ox 96% on 2 lpm NC; Pain 4/10; pf1 04:30 BP 108 / 70; Pulse 66; Resp 16; Pulse Ox 99% ; vc1 12/28 19:02 Body Mass Index 17.16 (45.36 kg, 162.56 cm) hb 12/28 19:02 Pain Scale: Adult hb 20:30 Pain Scale: Adult pf1 01:30 Pain Scale: Adult pf1 02:30 Pain Scale: Adult pf1 03:00 Pain Scale: Adult pf1 MDM: 12/28 18:57 Patient medically screened. kb 12/29 00:37 ED course: Discussed admission with hospitalist who stated to attempt transfer to [facility]. [facility] is currently capped but will attempt transfer and see if they will accept patient as she had had her abdominal surgery there.. 00:40 Differential diagnosis: cellulitis, Abscess, wound dehiscence, pneumonia, sepsis, COPD. ci Data reviewed: vital signs, nurses notes, old medical records. 01:05 ED course: General surgeon consulted, discussed case with Dr. Polk who stated to get ci a CT of the abdomen and to admit to the hospitalist.. 03:33 ED course: CT abdomen shows bibasilar pneumonia, no dehiscence.. ci 12/28 20:48 Order name: Blood Culture Adult (2) ci 12/28 20:48 Order name: CBC with Diff; Complete Time: 22:27 ci 12/28 20:48 Order name: CMP; Complete Time: 22:27 ci 12/28 20:48 Order name: Lactate w/ 2H reflex if indic.; Complete Time: 22:27 ci 12/28 20:48 Order name: Protime (+inr); Complete Time: 23:18 ci 12/28 20:48 Order name: Ptt, Activated; Complete Time: 23:18 ci 12/28 20:48 Order name: Urinalysis w/ reflexes; Complete Time: 22:27 ci 12/28 20:48 Order name: Wound Culture ci 12/28 20:48 Order name: D-Dimer; Complete Time: 23:18 ci 12/28 20:48 Order name: Troponin HS; Complete Time: 22:27 ci 12/28 20:50 Order name: NT PRO-BNP; Complete Time: 22:27 ci 12/28 21:17 Order name: Glucose, Ancillary Testing; Complete Time: 21:50 EDMS 12/29 00:46 Order name: Test, Urine; Complete Time: 02:03 ci 12/29 04:35 Order name: CBC with Automated Diff EDMS 12/29 04:35 Order name: CBC with Automated Diff EDMS 12/29 04:35 Order name: Comprehensive Metabolic Panel EDMS 12/29 04:35 Order name: Comprehensive Metabolic Panel EDMS 12/29 04:35 Order name: Lipase EDMS 12/29 04:35 Order name: Lipase EDMS 12/29 04:35 Order name: Magnesium EDMS 12/29 04:35 Order name: Magnesium EDMS 12/29 04:35 Order name: Phosphorus EDMS 12/29 04:35 Order name: Phosphorus EDMS 12/28 20:48 Order name: Chest Single View XRAY; Complete Time: 22:27 ci 12/28 22:54 Interpretation: Per Radiologist's finding(s): IMPRESSION: Patchy opacities throughout ci the right mid to lower lung, concerning for pneumonia. 12/29 00:46 Order name: CT Chest For PE Angio ci 12/29 01:05 Order name: CT Abd/Pelvis - IV Contrast Only ci 12/28 20:48 Order name: EKG; Complete Time: 20:48 ci 12/29 04:35 Order name: CONS Physician Consult EDMS 12/28 20:37 Order name: EKG - Nurse/Tech; Complete Time: 20:52 jb4 12/28 20:48 Order name: Accucheck; Complete Time: 21:05 ci 12/28 20:48 Order name: Cardiac monitoring; Complete Time: 20:53 ci 12/28 20:48 Order name: IV Saline Lock - Large Bore; Complete Time: 21:54 ci 12/28 20:48 Order name: Labs collected and sent; Complete Time: 21:54 ci 12/28 20:48 Order name: O2 Per Protocol; Complete Time: 20:53 ci 12/28 20:48 Order name: O2 Sat Monitoring; Complete Time: 20:53 ci 12/28 20:48 Order name: Vital Signs; Complete Time: 20:53 ci 12/28 20:48 Order name: IV Saline Lock; Complete Time: 21:54 ci Administered Medications: 12/28 21:03 Drug: Ipratropium Inhalation Aerosol 0.5 mg Inhalation once Route: Inhalation; pf1 22:00 Follow up: Response: No adverse reaction; Marked relief of symptoms pf1 21:50 Drug: NS 0.9% IV 1000 ml IV at 1000 ml once Route: IV; Rate: 1000 ml; Site: right pf1 forearm; 22:50 Follow up: IV Status: Completed infusion; IV Intake: 1000ml vc1 22:50 Follow up: Response: No adverse reaction; Marked relief of symptoms pf1 22:20 Drug: fentaNYL (PF) IVP 25 mcg IVP once Route: IVP; Site: right forearm; pf1 12/29 00:47 Follow up: Response: No adverse reaction; Marked relief of symptoms vc1 12/28 23:30 Drug: Rocephin IV 1 grams IV at calculated rate once; Given slow IV push per pharmacy vc1 instructions Route: IV; Rate: calculated rate; Site: right forearm; 23:35 Follow up: IV Status: Completed infusion; IV Intake: 10ml vc1 23:36 Drug: AZITHromycin IVPB 500 mg IVPB once over 1 hrs; (mix in 250 mL NS) Route: IVPB; jb4 Infused Over: 1 hrs; Site: right antecubital; 12/29 00:46 Follow up: IV Status: Completed infusion; IV Intake: 250ml vc1 12/28 23:54 Not Given (Other Intervention Used): nicotinepatch 14 mg/24 hr 1 patches Transdermal jb4 once 23:57 Drug: Nicoderm CQ Transdermal Patch 21 mg/24 hr 1 patches Transdermal once {Note: right jb4 upper arm.} Route: Transdermal; Site: affected area; 12/29 00:50 Follow up: Response: No adverse reaction; Marked relief of symptoms pf1 Disposition Summary: 12/30/23 01:09 Hospitalization Ordered Notes: Hospitalization Status: Inpatient Admission ci Provider: Aysha Arguello Condition: Stable(12/30/23 01:09) ci Problem: new(12/30/23 01:09) ci Symptoms: are unchanged(12/30/23 01:09) ci Bed/Room Type: Standard ci Location: Telemetry/MedSurg (Inpatient)(12/30/23 04:38) cg Room Assignment: [facility](12/30/23 04:38) cg Diagnosis - Pneumonia, unspecified organism(12/30/23 01:09) ci - Other specified complications of surgical and medical care, not elsewhere ci classified(12/30/23 01:09) Forms: - Medication Reconciliation Form ci - SBAR form ci - Leadership Thank You Letter ci Signatures: Dispatcher [employer] EDMS Yulia De La Torre, SUPERVISOR PAINTING SHIPYARDPaC Jesenia Soriano RN RN cg Shira Hoffman RN RN Shahriar Martin RN RN jb4 Brittany Kirk RN RN vc1 Kari Weber RN RN pf1 Jarvis Smith ci Corrections: (The following items were deleted from the chart) 01:08 00:40 General surgery ci ci 01:08 00:40 [facility] ci ci 01:08 00:40 Higher level of care ci ci 01:08 00:40 Stable ci ci 01:08 00:40 new ci ci 01:08 00:40 are unchanged ci ci 01:08 00:40 Pneumonia, unspecified organism ci ci 01:08 00:40 Other specified complications of surgical and medical care, not elsewhere ci classified - Abdominal surgical site infection ci 03:11 01:09 Telemetry/MedSurg (Inpatient) ci vc1 03:11 01:09 ci vc1 04:38 03:11 [facility] ER HOLD vc1 cg 04:38 03:11 ERHOLD- vc1 cg
[2023-12-30 01:43] LABS: Specific Gravity > 1.030 (1.005-1.030)
--- NOTE | 2023-12-30 04:08 | P.HP ---
Certification for Inpatient Patient admitted to: Inpatient With expected LOS: >2 Midnights Patient will require the following post-hospital care: None Practitioner: I am a practitioner with admitting privileges, knowledge of patient current condition, hospital course, and medical plan of care. Services: Services provided to patient in accordance with Admission requirements found in Title 42 Section 412.3 of the Code of Federal Regulations Patient History Date of Service: 12/30/23 History of Present Illness: Patient is a 43-year-old female with a past medical history of peptic ulcer disease with GI bleeding whose had multiple episodes of GI bleeds over the last few years. She had a GI bleed in 2019 as well as in December 2022. She also had a past perforated gastric ulcer status post Ashwin patch in August 10, 2023. Patient was seen at [facility] on November 19, 2023 for hematemesis. Patient had a CT scan which did not reveal any evidence of gastric perforation. Patient was given PPI and started on a diet and discharged home. However, on December 02, 2023 patient had another episode of hematemesis and had some coffee-ground emesis. On December 03, patient went ahead and had a EGD which revealed a nonbleeding gastric ulcer with a clean ulcer base. The ulcer was apparently causing gastric outlet obstruction. On December 04, 2023 patient had an exploratory laparotomy with lysis of adhesion and bilateral truncal vagotomy along with an antrectomy and a Yesy-en-Y reconstruction with drainage of a pancreatic abscess along with an EGD. Patient comes into our hospital with dehiscence over wound. We attempted to transfer her back to [facility]; however, they were at capacity and were not able to accept our patient on transfer. We went ahead and notified general surgery, Dr. Canseco regarding patient's care. Dr. Canseco was notified of the wound dehiscence per ER physician, and he was okay with excepting the patient to our hospital for further treatment. Patient will refrain from NSAIDs, alcohol, tobacco use, and other polysubstance abuse. Patient will be admitted to the hospital for further intervention. Allergies codeine [From Tylenol-Codeine #3] Allergy (Verified 08/10/23 13:10) Rash propoxyphene napsylate [From Darvocet-N 100] Allergy (Verified 03/15/13 14:12) Itching/Hives/Rash Home Medications: ALPRAZolam [Xanax*] 0.5 mg PO TID PRN #30 tab 03/11/23 Iron Polysaccharide Complex [Polysaccharide Iron] 150 mg PO DAILY #30 cap 06/10/23 Albuterol Inhaler [Ventolin Inhaler*] 2 puff IH DAILY PRN 08/05/23 Ensure High Protein 237 ml PO BID #30 can 08/19/23 Ipratropium/Albuterol Sulfate [Iprat-Albut 0.5-3(2.5) mg/3 ml] 3 ml IH QID #120 amp 08/19/23 Nicotine [Nicoderm*] 21 mg TD DAILY #30 patch 08/19/23 Pantoprazole [Protonix Tab*] 40 mg PO BIDAC #60 tab 08/19/23 Gabapentin [Neurontin] 100 mg PO DAILY 12/30/23 Hydrocodone/Acetaminophen [Hydrocodone-Acetamin 5-325 mg] 1 tab PO Q6H PRN 12/30/23 Ondansetron [Zofran] 4 mg PO Q6H PRN 12/30/23 Topiramate 50 mg PO DAILY 12/30/23 - Past Medical/Surgical History Diabetic: No -: Anxiety disorder -: Nicotine dependence -: Hypertension -: GERD -: Chronic back pain -: BTL - Family History Father Medical History: Cancer Notes: pelvic cancer Mother Medical History: Cancer Notes: lung cnacer, brain cancer Brother Notes: SIDS - Social History Alcohol use: No CD- Drugs: No Caffeine use: No Review of Systems Gastrointestinal: Nausea, Abdominal Pain Physical Examination - Vital Signs Temperature: 99 F Blood Pressure: 120/70 Pulse: 120 Respirations: 18 Pulse Ox (%): 98 - Physical Exam General: Alert, In no apparent distress, Oriented x3, Cachectic, Other (She appears to be emaciated) HEENT: Atraumatic, PERRLA, Mucous membr. moist/pink, EOMI, Sclerae nonicteric Neck: Supple, 2+ carotid pulse no bruit, No LAD, Without JVD or thyroid abnormality Respiratory: Diminished, Rhonchi/gurgles Cardiovascular: Regular rate/rhythm, Normal S1 S2, Systolic murmur Gastrointestinal: Hypoactive, Soft and benign, Other ([place] to the midline incision along the abdomen with open wound), Distended, Tenderness Musculoskeletal: No clubbing, No swelling, No tenderness Integumentary: No rashes Neurological: Normal gait, Normal speech, Normal strength at 5/5 x4 extr, Normal tone, Cranial nerves 3-12 intact, Normal affect Lymphatics: No axilla or inguinal lymphadenopathy - Studies Laboratory Data (last 24 hrs) 12/29/23 12/29/23 12/29/23 21:31 21:31 21:31 WBC 9.20 Hgb 10.1 L Hct 30.9 L Plt Count 755 H PT 36.7 H INR 3.46 APTT 54.9 H Sodium 140 Potassium 3.4 L BUN 12 Creatinine 0.50 L Glucose 94 Total Bilirubin 0.2 AST 29 ALT 13 Alkaline Phosphatase 477 H Assessment & Plan - Problems (Diagnosis) (1) Acute respiratory failure Current Visit: No Status: Acute (2) Community acquired bilateral lower lobe pneumonia Current Visit: No Status: Acute (3) Elevated troponin Current Visit: No Status: Acute (4) Hypoxemia Current Visit: No Status: Acute (5) Iron deficiency anemia Current Visit: No Status: Acute Qualifiers: Iron deficiency anemia type: unspecified iron deficiency Qualified Code(s): D50.9 - Iron deficiency anemia, unspecified (6) Perforated gastric ulcer Current Visit: No Status: Acute Qualifiers: Gastric ulcer chronicity: acute Qualified Code(s): K25.1 - Acute gastric ulcer with perforation (7) Wound dehiscence Current Visit: Yes Status: Acute (8) History of Yesy-en-Y gastric bypass Current Visit: Yes Status: Acute (9) Pancreatic abscess Current Visit: Yes Status: Acute (10) History of vagotomy Current Visit: Yes Status: Acute - Plan Plan: 1. Continue with PPI every 12 hours 2. Continue with pain control 3. Consult general surgery officially; notified from the emergency room and they will see the patient as [facility], where patient had surgery are at capacity 4. Continue monitoring H&H and type and cross for 2 units 5. Continue with IV antibiotics 6. Continue nebulizers as needed 7. Continue with wound care 8. GI and DVT prophylaxis Discharge Plan: Home - Advance Directives Does patient have a Living Will: No Does patient have a Durable POA for Healthcare: No - Code Status/Comfort Care Code Status: Full Code Critical Care: No Time Spent Managing PTS Care (In Minutes): 45 Date of Service: 12/30/2312/03: EGD non-bleeding gastric ulcer with a clean ulcer base (Jose R Class III). Ulcer is causing pylorus deformity and likely outlet obstruction; 12/04: exploratory lap, [place], bilateral truncal vagotomy, antrectomy with Yesy-en-Y reconstruction, drainage of pancreatic abscess, EGD
[2023-12-30] MEDS ORDERED: ACETAMINOPHEN 500 MG TAB PO PRN (04:27)
[2023-12-30] MEDS ORDERED: ONDANSETRON 4 MG/2 ML VIAL IV PRN (04:27)
[2023-12-30 05:22] VITALS: BMI 17.2
[2023-12-30] MEDS ORDERED: Ringers Lactate 1,000 ML IV ONE (05:24)
[2023-12-30] MEDS ORDERED: VANCOMYCIN 500 MG/VIAL ONE (05:24)
[2023-12-30] MEDS ORDERED: NA CHLORIDE 0.9% 250 ML ONE (05:24)
[2023-12-30] MEDS: VANCOMYCIN 750 MG in NA CHLORIDE 0.9% 150 ML IVPB SCH (05:39)
[2023-12-30] MEDS: Ringers Lactate 1,000 ML IV SCH (05:39)
[2023-12-30 07:32] LABS: Absolute Eosinophils 0.3 K/uL (0-0.5); Absolute Lymphocytes (CBC) 2.1 K/uL (0.7-4.9); Absolute Monocytes 0.6 K/uL (0.1-1.3); Absolute Neutrophil 6.8 K/uL (1.8-8.0); Basophils % 0.4 % (0-1.3); Eosinophils % 3.5 % (0-4.4); Hematocrit 28.2 % (36.0-45.0); Hemoglobin 9.2 g/dL (12.0-15.0); Lymphocytes % 21.4 % (15.3-44.8); MCH 26.7 pg (27.0-35.0); MCHC 32.6 g/dL (32.0-36.0); MPV 6.9 fL (7.6-11.3); Monocytes % 5.7 % (3.3-12.3); Nucleated Red Blood Cells % 0.1 % (0-0); Platelets 644 thou/uL (152-406); RBC Red Blood Cell Count 3.43 M/uL (3.86-4.86); Red Cell Distribution Width 18.1 % (12.1-15.2)
[2023-12-30 07:41] LABS: PT Prothrombin Time 29.7 SECONDS (9.5-12.5); Protime INR 2.78
[2023-12-30 08:02] LABS: AST/SGOT 18 U/L (15-37); Albumin 1.6 g/dL (3.4-5.0); Albumin/Globulin Ratio 0.5 (1.1-1.8); Alkaline Phosphatase 396 U/L (45-117); BUN Blood Urea Nitrogen 11 mg/dL (7-18); Bicarbonate 30 mEq/L (21-32); Bilirubin Total 0.2 mg/dL (0.2-1.0); Globulin 3.5 g/dL (2.3-3.5); Glomerular Filtration Rate 122 ml/min (=/>90); Glucose Level 99 mg/dL (74-106); Lipase 21 U/L (13-75); Protein, Total 5.1 g/dL (6.4-8.2); Sodium Level 143 mEq/L (136-145)
[2023-12-30 08:07] LABS: ALT/SGPT < 10 U/L (13-56)
[2023-12-30] MEDS: ENOXAPARIN 40 MG/0.4 ML SQ SCH (08:07)
[2023-12-30] MEDS: PIPER TAZO 3.375 GM in NA CHLORIDE 0.9% 100 ML IV SCH (08:07)
[2023-12-30] MEDS: HYDROMORPHONE HCL 0.5 MG/0.5 ML INJ IV PRN (08:07)
[2023-12-30] MEDS: VANCOMYCIN 1 GM in NA CHLORIDE 0.9% 250 ML IVPB SCH (08:46)
[2023-12-30] MEDS: HYDROCODONE/APAP 7.5/325 MG TAB PO PRN (10:32)
--- NOTE | 2023-12-30 12:43 | RAD REPORT ---
EXAM DESCRIPTION: CT - Chest For Pe Angio - 12/30/2023 6:41 am CLINICAL HISTORY: DYSPNEA COMPARISON: None. TECHNIQUE: CT CHEST ANGIOGRAPHY WITH IV CONTRAST on 12/30/2023 12:46 AM CDT. MIPS reconstructions wer e generated. This exam was performed according to our departmental dose-optimization program, which includes autom ated exposure control, adjustment of the mA and/or kV according to patient size and/or use of iterati ve reconstruction technique. MIP images were generated. FINDINGS: Thoracic aorta is normal in course and caliber without aneurysm or dissection. Pulmonary a rteries are adequately opacified without acute or chronic filling defects. The heart is normal in size. There is no pericardial effusion. Intrathoracic lymph nodes are not enla rged. There is no pleural effusion, pleural thickening or pneumothorax. Central airways are patent. There a re extensive geographic groundglass opacities throughout both lungs. There are no acute abnormalities within the limited images of the upper abdomen. There are no acute osseous findings. No suspicious bony lesions. IMPRESSION: No aortic dissection or aneurysm. No pulmonary embolus. Extensive bilateral pneumonia. Electronically signed by: Juan Lindsay MD 12/30/2023 02:47 AM CDT Due to temporary technical issues with the PACS/Fluency reporting system, reports are being signed by the in house radiologist without review as a courtesy to ensure prompt reporting. The interpreting r adiologist is fully responsible for the content of the report.
--- NOTE | 2023-12-30 12:44 | RAD REPORT ---
EXAM DESCRIPTION: CT - Abdomen Pelvis W Contrast - 12/30/2023 6:41 am CLINICAL HISTORY: ABD PAIN COMPARISON: None. TECHNIQUE: CT ABDOMEN PELVIS WITH IV CONTRAST on 12/30/2023 1:05 AM CDT This exam was performed according to our departmental dose-optimization program, which includes autom ated exposure control, adjustment of the mA and/or kV according to patient size and/or use of iterati ve reconstruction technique. FINDINGS: There are patchy groundglass opacities throughout the lower lungs. Abdomen: The liver is normal in appearance. Common bile duct is dilated measuring 13 mm. There is mil d intrahepatic biliary dilatation. Cholecystectomy was performed. The pancreas and spleen are normal in appearance. The adrenal glands and kidneys are unremarkable. Abdominal aorta is normal in course and caliber without aneurysm. There is no free air. There is no r etroperitoneal adenopathy. Pelvis: There is large amount of stool throughout the colon. There may be mild thickening of the dist al sigmoid colon. Urinary bladder is unremarkable. There is no free fluid. Uterus is normal in size. Skeleton: There are no acute osseous findings. No suspicious bony lesions. IMPRESSION: Constipation with possible distal infectious or inflammatory colitis. Biliary dilatation with no clear etiology. Bibasilar pneumonia. Electronically signed by: Juan Lindsay MD 12/30/2023 02:46 AM CDT Due to temporary technical issues with the PACS/Fluency reporting system, reports are being signed by the in house radiologist without review as a courtesy to ensure prompt reporting. The interpreting r adiologist is fully responsible for the content of the report.
--- NOTE | 2023-12-30 12:46 | P.CNS ---
Date of Consult: 12/30/23 Reason for Consult: Abnormal CT scan Chief Complaint: Problems with abdominal wound History of Present Illness: Patient is 43 years of age generally has surgery acute GI bleeding to gastric perforation on December 03, 2023 and an exploratory laparotomy lysis of adhesions truncal vagotomy and age of pancreatic abscess came in with wound dehiscence currently doing well denies any pulmonary complaint denies any fever or chills a Allergies codeine [From Tylenol-Codeine #3] Allergy (Verified 08/10/23 13:10) Rash propoxyphene napsylate [From Darvocet-N 100] Allergy (Verified 03/15/13 14:12) Itching/Hives/Rash Home Medications: ALPRAZolam [Xanax*] 0.5 mg PO TID PRN #30 tab 03/11/23 Iron Polysaccharide Complex [Polysaccharide Iron] 150 mg PO DAILY #30 cap 06/10/23 Albuterol Inhaler [Ventolin Inhaler*] 2 puff IH DAILY PRN 08/05/23 Ensure High Protein 237 ml PO BID #30 can 08/19/23 Ipratropium/Albuterol Sulfate [Iprat-Albut 0.5-3(2.5) mg/3 ml] 3 ml IH QID #120 amp 08/19/23 Nicotine [Nicoderm*] 21 mg TD DAILY #30 patch 08/19/23 Pantoprazole [Protonix Tab*] 40 mg PO BIDAC #60 tab 08/19/23 Gabapentin [Neurontin] 100 mg PO DAILY 12/30/23 Hydrocodone/Acetaminophen [Hydrocodone-Acetamin 5-325 mg] 1 tab PO Q6H PRN 12/30/23 Ondansetron [Zofran] 4 mg PO Q6H PRN 12/30/23 Topiramate 50 mg PO DAILY 12/30/23 - Past Medical/Surgical History Diabetic: No -: Anxiety disorder -: Nicotine dependence -: Hypertension -: GERD -: Chronic back pain -: Pneumonia -: BTL -: Partial stomach removed -: Colon resection - Family History Father Medical History: Cancer Notes: pelvic cancer Mother Medical History: Cancer Notes: lung cnacer, brain cancer Brother Notes: SIDS - Social History Smoking Status: Current every day smoker Alcohol use: No CD- Drugs: No Caffeine use: No Place of Residence: Home Review of Systems 10-point ROS is otherwise unremarkable General: Weakness Respiratory: Shortness of Breath Physical Examination Temp Pulse Resp BP Pulse Ox 99 F 120 H 18 120/70 98 12/30/23 09:27 12/30/23 09:27 12/30/23 09:27 12/30/23 09:27 12/30/23 09:27 General: Alert, Oriented x3 HEENT: Atraumatic Neck: Supple Respiratory: Clear to auscultation bilaterally, Diminished Cardiovascular: No edema, Regular rate/rhythm, Normal S1 S2 Gastrointestinal: Other (The wound looks well-healed there is mild opening) Laboratory Data (last 24 hrs) 12/29/23 12/29/23 12/29/23 21:31 21:31 21:31 WBC 9.20 Hgb 10.1 L Hct 30.9 L Plt Count 755 H PT 36.7 H INR 3.46 APTT 54.9 H Sodium 140 Potassium 3.4 L BUN 12 Creatinine 0.50 L Glucose 94 Total Bilirubin 0.2 AST 29 ALT 13 Alkaline Phosphatase 477 H - Problems (1) Pulmonary fibrosis Current Visit: Yes Status: Acute Plan: Patient is 43 years of age with extensive abdominal surgeries admitted with plans with her abdominal wound from her recent surgery there is no evidence of any infection x-ray shows diffuse bilateral groundglass changes which I suppose is chronic but present in July last year she denies any shortness of breath cough congestion patient is oxygenation vital signs are all satisfactory no evidence of any infection can DC antibiotics plan for discharge patient is also malnourished hypoalbuminemic alkaline phosphatase is significantly elevated normal LFTs also she appears to have a coagulopathy with elevated INR being confirmed (2) Coagulopathy Current Visit: Yes Status: Acute Plan: Not sure why her PT/INR is elevated may be due to coagulopathy from vitamin K deficiency given her 1 dose
--- NOTE | 2023-12-30 13:32 | CON ---
Date of Consultation: 12/30/2023 Reason For Consultation: Abdominal wound. History Of Present Illness: The patient is a 43-year-old female with significant past medical histor y for peptic ulcer disease who has had several GI bleeding episodes and she underwent a Ashwin patch repair in July of last year and then she had another episode of hematemesis and she had a gastric outlet obstruction and underwent exploratory laparotomy with bilateral truncal vagotomy along with an antrectomy and a Yesy-en-Y reconstruction with drainage of a pancreatic abscess along with an EGD. She came to the ER last night because of small opening in her wound as her rei spread apart. How ever, she does not have any nausea or vomiting. No diarrhea or constipation. No blood per rectum. Our ER was attempting to transfer her back to [facility] in [facility], however, they were at capacity and not able to accept the patient on transfer. On her initial workup, she was also found t o have pneumonia and she was admitted for that purpose and I was asked to evaluate the abdominal woun d. She did have a CT of the abdomen and pelvis, which did not show any evidence of fascial dehiscenc e or evisceration and no acute surgical findings with the exception of possible colitis in the left s ben of the colon. No sore throat, runny nose, cough, headaches, or dizziness. No chest pain. No fe vers or chills. Review of Systems: Otherwise, unremarkable. Past Medical History: Peptic ulcer disease. Family History: Anxiety disorder, nicotine dependence, chronic back pain, GERD. Past Surgical History: Bilateral tubal ligation and recent vagotomy and antrectomy. Allergies: INCLUDE CODEINE AND PROPOXYPHENE. Social History: The patient does smoke. Denies alcohol or any street drugs. Physical Examination: Vital Signs: Currently are stable. Temperature is 99, pulse rate went up a little bit this morning to 120. She is afebrile. General: She is awake and alert. Head and Neck: Patient has significant dental disease with most of the front teeth missing and the r emaining teeth are deteriorating and in a bad appearance. There are no masses in the neck, however, and the throat is clear. Neck is supple. Skin: Multiple french on her skin. All of this is suspicious for methamphetamine abuse. Multiple no nhealing wounds are present throughout her skin. Chest: Clear. Heart: S1, S2. Abdomen: Soft, nondistended, nontender. Positive bowel sounds. In the middle of a surgical wound, there are some rei that have in the middle with approximately a 3 cm opening with some fibrinous exudate present. There is no surrounding erythema, warmth, or edema. The wound is basical ly dehisced at the skin level and the fibrin appears to be loose and there are some rei that have been removed at the bottom of the incision, but at the top there are still some rei present. Sh e is approximately 3 weeks out postsurgery. Laboratory Data: White count is 9.8, platelets are 644, H and H is 9.2 and 28.2. Neutrophil percent age is normal. INR is 2.78 and chemistry reviewed. Her potassium is 3.0, which is being replaced. Her alk phos is 396 and total bili is 0.2, albumin is 1.6. Her CT of the chest and thorax reveals bi lateral pneumonia, and her CT of the abdomen and pelvis reveals mild inflammatory stranding suggestiv e of colitis possibly, but no fascial dehiscence or any evidence of evisceration. Assessment: 43-year-old female with bilateral pneumonia and abdominal wound which is partly open at the skin level and subcutaneous level with no evidence of any active infection. Recommendations: Antibiotics for the pneumonia per the Medical team and wet-to-dry normal saline jef ssing changes for the abdominal wound. The patient [facility]. There is no need for any surgical intervention at this time. The patient was advised to follow up with her surgeons in [place] as well. /MODL Voice ID: [id number] Report ID: [id number]
[2023-12-30] MEDS: VITAMIN K (ADULT) 10 MG/ML SQ ONE ×2 (14:50→14:53)
--- NOTE | 2023-12-30 17:57 | P.PN ---
Date of Service: 12/30/23 Patient seen on rounds this morning. No wound dehiscence seen. A few rei partially out of wound, no infection noted, appears to have intact fascia cutaneous/subcutaneous tissues dehisced Reported shortness of breath as well. CT chest with "extensive bilateral ground glass opacities" concerning for pneumonia. CT abdomen done on 11/18/23 and 12/02/23 without any ground glass opacities, however similar appearance back in 07/2023 so this would be acute/new development within the last 30 days unsure if she had some degree of ARDS during recent admission, or drug induced injury, vs infection Pulm consulted General surgery evaluated wound - no surgical intervention needed, topical wound care and f/u with her surgeon INR significantly elevated for unknown reason. with elevated alkphos, normal ast/alt denies being on any anticoagulation slightly improved overnight, will trend monitor h/h, no signs of bleeding at this time
[2023-12-30] MEDS: NICOTINE 7 MG/PAT TD SCH (21:24)
[2023-12-30] MEDS: ALPRAZOLAM 1 MG TABLET PO ONE (21:24)
[2023-12-31 07:29] LABS: Absolute Eosinophils 0.3 K/uL (0-0.5); Absolute Lymphocytes (CBC) 0.9 K/uL (0.7-4.9); Absolute Monocytes 0.3 K/uL (0.1-1.3); Absolute Neutrophil 6.2 K/uL (1.8-8.0); Basophils % 0.5 % (0-1.3); Hematocrit 26.8 % (36.0-45.0); Hemoglobin 8.6 g/dL (12.0-15.0); Lymphocytes % 12.1 % (15.3-44.8); MCH 26.6 pg (27.0-35.0); MCHC 32.2 g/dL (32.0-36.0); MCV 82.6 fL (80-100); MPV 6.8 fL (7.6-11.3); Monocytes % 4.4 % (3.3-12.3); Platelets 480 thou/uL (152-406); RBC Red Blood Cell Count 3.24 M/uL (3.86-4.86); Red Cell Distribution Width 17.5 % (12.1-15.2)
[2023-12-31 07:32] LABS: PT Prothrombin Time 16.4 SECONDS (9.5-12.5); Protime INR 1.51
[2023-12-31 07:50] LABS: AST/SGOT 24 U/L (15-37); Albumin 1.5 g/dL (3.4-5.0); Albumin/Globulin Ratio 0.4 (1.1-1.8); Alkaline Phosphatase 376 U/L (45-117); Anion Gap 4.5 mEq/L (5.0-15.0); BUN Blood Urea Nitrogen 6 mg/dL (7-18); Bicarbonate 31 mEq/L (21-32); Bilirubin Total 0.2 mg/dL (0.2-1.0); Globulin 3.4 g/dL (2.3-3.5); Glomerular Filtration Rate 126 ml/min (=/>90); Glucose Level 91 mg/dL (74-106); Lipase 18 U/L (13-75); Magnesium 1.7 mg/dL (1.6-2.4); Phosphorus 2.1 mg/dL (2.5-4.9); Potassium 3.5 mEq/L (3.5-5.1); Protein, Total 4.9 g/dL (6.4-8.2); Sodium Level 145 mEq/L (136-145)
[2023-12-31 07:56] LABS: ALT/SGPT < 10 U/L (13-56)
[2023-12-31] MEDS: POTASSIUM 25 MEQ EFFERV TAB PO ONE (12:52)
[2023-12-31] MEDS: VANCOMYCIN 1 GM in NA CHLORIDE 0.9% 250 ML IVPB SCH (12:52)
[2023-12-31] MEDS: POTASS/SODIUM PHOSPHATE 1 PKT POWD.PACK PO SCH (12:52)
[2023-12-31] MEDS: MAGNESIUM SULFATE 1 gm IVPB 1 GM/100 ML BAG IV ONE (13:40)
--- NOTE | 2023-12-31 14:12 | EKG ---
Test Date: 2023-12-29 Test Time: 19:45:23 [employer]: LUISA MEASUREMENT RESULTS: Intervals: Rate: 101 IN: 120 QRSD: 78 QT: 332 QTc: 430 [place]: P: 54 IN: 120 QRS: 2 T: 7 INTERPRETIVE STATEMENTS: Sinus tachycardia Otherwise normal ECG Compared to ECG 12/02/2023 09:46:35 No significant changes Electronically Signed On 12-31-23 14:06:45 CDT by Duane Fernando
[2024-01-01 05:44] VITALS: BP 149/85; TEMP 97.9
[2024-01-01 07:04] LABS: PT Prothrombin Time 13.3 SECONDS (9.5-12.5); Protime INR 1.22
[2024-01-01 07:13] LABS: Anion Gap 5.8 mEq/L (5.0-15.0); Potassium 3.8 mEq/L (3.5-5.1)
[2024-01-01] MEDS: LORAZEPAM 0.5 MG TABLET PO ONE (08:11)
[2024-01-01] MEDS: POTASSIUM CL SA 10 MEQ TAB PO ONE (10:04)
[2024-01-01] MEDS: VANCOMYCIN 1 GM in NA CHLORIDE 0.9% 250 ML IVPB SCH (10:09)
[2024-01-01 13:24] VITALS: O2SAT 96
--- NOTE | 2024-01-01 13:56 | P.DS ---
Admission Date: 12/30/23 Discharge Date: 01/01/24 Disposition: ROUTINE DISCHARGE Discharge Condition: FAIR Reason for Admission: Problems with abdominal wound - Problems (1) MRSA (methicillin resistant Staphylococcus aureus) infection Current Visit: Yes Status: Acute (2) Nonhealing surgical wound Current Visit: Yes Status: Acute (3) Personal history of gastric ulcer Current Visit: Yes Status: Acute (4) Chronic respiratory failure with hypoxia Current Visit: Yes Status: Acute (5) Severe protein-calorie malnutrition Current Visit: Yes Status: Acute Brief History of Present Illness: Patient is a 43-year-old female with a past medical history of peptic ulcer disease with GI bleeding whose had multiple episodes of GI bleeds over the last few years. She had a GI bleed in 2019 as well as in December 2022. She also had a past perforated gastric ulcer status post Ashwin patch in August 10, 2023. Patient was seen at [facility] on November 19, 2023 for hematemesis. Patient had a CT scan which did not reveal any evidence of gastric perforation. Patient was given PPI and started on a diet and discharged home. However, on December 02, 2023 patient had another episode of hematemesis and had some coffee-ground emesis. On December 03, patient went ahead and had a EGD which revealed a nonbleeding gastric ulcer with a clean ulcer base. The ulcer was apparently causing gastric outlet obstruction. On December 04, 2023 patient had an exploratory laparotomy with lysis of adhesion and bilateral truncal vagotomy along with an antrectomy and a Yesy-en-Y reconstruction with drainage of a pancreatic abscess along with an EGD. Patient comes into our hospital with gapping in her abdominal surgical wound. An attempt was made to transfer her back to [facility]; however, they were at capacity and were not able to accept our patient on transfer. We went ahead and notified general surgery, Dr. Canseco regarding patient's care. Dr. Canseco was notified of the wound dehiscence per ER physician, and he was okay with accepting the patient to our hospital for further treatment. Patient was admitted for further management. Hospital Course: Patient was admitted to the medical floor and started on antibiotics. He was seen and evaluated by surgery Dr. Canseco who examined patient wound and noted her wound is superficial involving the cutaneous and subcutaneous tissues and no fascial dehiscence. Dr. Canseco recommended local wound care and no surgical intervention. Swab for the wound culture grew MRSA which is most likely colonization. Patient is prescribed oral Bactrim and topical Bactroban for MRSA infected wound. Patient has groundglass opacities as reported by her chest CT which is apparently chronic. She has a history of ARDS. Her INR was significantly elevated. Elevated INR deemed to be probably related to vitamin K deficiency. Patient was given a dose of vitamin K. INR is now normalized. Vital Signs/Physical Exam: Temp Pulse Resp BP Pulse Ox 97.9 F 85 16 149/85 H 95 01/01/24 04:00 01/01/24 04:00 01/01/24 10:07 01/01/24 04:00 01/01/24 10:07 General: Alert, In no apparent distress, Oriented x3, Cachectic HEENT: Mucous membr. moist/pink Neck: Supple, JVD not distended Respiratory: Crackles/rales Cardiovascular: No edema, Regular rate/rhythm, Normal S1 S2 Gastrointestinal: Soft and benign, Non-distended, No tenderness Musculoskeletal: No swelling Integumentary: No cyanosis Neurological: Normal strength at 5/5 x4 extr Laboratory Data at Discharge: WBC 7.90 thou/uL (4.3-10.9) 12/31/23 06:55 Hgb 8.6 g/dL (12.0-15.0) L 12/31/23 06:55 Hct 26.8 % (36.0-45.0) L 12/31/23 06:55 Plt Count 480 thou/uL (152-406) H 12/31/23 06:55 PT 13.3 SECONDS (9.5-12.5) H 01/01/24 06:50 INR 1.22 01/01/24 06:50 APTT 54.9 SECONDS (24.3-36.9) H 12/29/23 21:31 Sodium 144 mEq/L (136-145) 01/01/24 06:50 Potassium 3.8 mEq/L (3.5-5.1) 01/01/24 06:50 BUN 3 mg/dL (7-18) L 01/01/24 06:50 Creatinine 0.32 mg/dL (0.55-1.02) L 01/01/24 06:50 Glucose 95 mg/dL (74-106) 01/01/24 06:50 Phosphorus 2.1 mg/dL (2.5-4.9) L 12/31/23 06:55 Magnesium 1.7 mg/dL (1.6-2.4) 12/31/23 06:55 Total Bilirubin 0.2 mg/dL (0.2-1.0) 12/31/23 06:55 AST 24 U/L (15-37) 12/31/23 06:55 ALT < 10 U/L (13-56) L 12/31/23 06:55 Alkaline Phosphatase 376 U/L (45-117) H 12/31/23 06:55 Lipase 18 U/L (13-75) 12/31/23 06:55 Home Medications: ALPRAZolam [Xanax*] 0.5 mg PO TID PRN #30 tab 03/11/23 Albuterol Inhaler [Ventolin Inhaler*] 2 puff IH DAILY PRN 08/05/23 Ensure High Protein 237 ml PO BID #30 can 08/19/23 Ipratropium/Albuterol Sulfate [Iprat-Albut 0.5-3(2.5) mg/3 ml] 3 ml IH QID #120 amp 08/19/23 Nicotine [Nicoderm*] 21 mg TD DAILY #30 patch 08/19/23 Pantoprazole [Protonix Tab*] 40 mg PO BIDAC #60 tab 08/19/23 Gabapentin [Neurontin*] 100 mg PO DAILY 12/30/23 Ondansetron [Zofran (Odt)*] 4 mg PO Q6H PRN 12/30/23 Topiramate 50 mg PO DAILY 12/30/23 Hydrocodone 7.5/APAP 325 [[place] 7.5/325 mg*] 1 tab PO Q4H PRN #20 tab 01/01/24 Iron Polysaccharide Complex [Polysaccharide Iron] 150 mg PO DAILY #30 cap 01/01/24 Mupirocin Calcium [Bactroban] 1 appl TP BID #1 tube 01/01/24 Smz./Tmp. [Bactrim Ds 800 MG/160 MG] 1 tab PO BID #20 tab 01/01/24 New Medications: Smz./Tmp. [Bactrim Ds 800 MG/160 MG] 1 tab PO BID #20 tab Mupirocin Calcium [Bactroban] 1 appl TP BID #1 tube Hydrocodone 7.5/APAP 325 [[place] 7.5/325 mg*] 1 tab PO Q4H PRN #20 tab PRN Reason: Pain Scale 5-7 (Moderate) Iron Polysaccharide Complex [Polysaccharide Iron] 150 mg PO DAILY #30 cap Diet: Regular Activity: Fall precautions Followup: Héctor ALCANTARA,Edu Mandel DO [Primary Care Provider] - 1-2 Weeks Time spent managing pt's care (in minutes): 33
--- NOTE | 2024-01-01 14:25 | P.PN ---
Subjective Date of Service: 12/31/23 Chief Complaint: Problems with abdominal wound Physical Examination - Vital Signs Temperature: 97.9 F Blood Pressure: 149/85 Pulse: 85 Respirations: 16 Pulse Ox (%): 95 - Studies Microbiology Data (last 24 hrs): 12/29/23 21:00 Wound - Abdomen Gram Stain - Final 12/29/23 21:00 Wound - Abdomen Culture & Sensitivity - Final Meth Resistant Staph Aureus Assessment And Plan - Current Problems (Diagnosis) (1) MRSA (methicillin resistant Staphylococcus aureus) infection Current Visit: Yes Status: Acute (2) Nonhealing surgical wound Current Visit: Yes Status: Acute (3) Personal history of gastric ulcer Current Visit: Yes Status: Acute (4) Chronic respiratory failure with hypoxia Current Visit: Yes Status: Acute (5) Severe protein-calorie malnutrition Current Visit: Yes Status: Acute
== END 2024-01-01 16:25 | disposition home or self-care (01) | DRG 919 ==
LOC: ER 18:38 → 4TH 12-30 04:27
PROVIDERS: ADMIT Hospitalist; ATTEND Internal Medicine
DX: T81.32XA Disruption of internal operation (surgical) wound, not elsewhere classified, initial encounter (principal); E43 Unspecified severe protein-calorie malnutrition; J96.00 Acute respiratory failure, unspecified whether with hypoxia or hypercapnia; R64 Cachexia; Z68.1 Body mass index [BMI] 19.9 or less, adult; D68.9 Coagulation defect, unspecified; J84.10 Pulmonary fibrosis, unspecified; G89.29 Other chronic pain; M54.9 Dorsalgia, unspecified; D50.9 Iron deficiency anemia, unspecified; E56.1 Deficiency of vitamin K; E88.09 Other disorders of plasma-protein metabolism, not elsewhere classified; K21.9 Gastro-esophageal reflux disease without esophagitis; F17.210 Nicotine dependence, cigarettes, uncomplicated; B95.62 Methicillin resistant Staphylococcus aureus infection as the cause of diseases classified elsewhere; R79.89 Other specified abnormal findings of blood chemistry; Z88.5 Allergy status to narcotic agent; Z90.3 Acquired absence of stomach [part of]; Z88.8 Allergy status to other drugs, medicaments and biological substances; Z98.84 Bariatric surgery status; Z90.49 Acquired absence of other specified parts of digestive tract; Z79.899 Other long term (current) drug therapy; Y83.8 Other surgical procedures as the cause of abnormal reaction of the patient, or of later complication, without mention of misadventure at the time of the procedure
CPT/HCPCS: 36415; 71045; 71275; 74177; 80048; 80053; 80202; 81001; 81025; 82947; 83605; 83690; 83735; 83880; 84100; 84484; 85025; 85379; 85610; 85730; 87040; 87070; 87077; 87186; 87205; 93005; 96361; 96365; 96375; 99285; J0696; J1170; J1650; J2543; J3010; J3430; J3475; J7030; J7050; J7120; J7644; Q9967

== ENCOUNTER 2024-05-20 18:33 | Emergency (ER) | payer OTHER ==
[2024-05-20 19:19] LABS: Absolute Eosinophils 0.2 K/uL (0-0.5); Absolute Lymphocytes (CBC) 1.7 K/uL (0.7-4.9); Absolute Monocytes 0.4 K/uL (0.1-1.3); Absolute Neutrophil 8.1 K/uL (1.8-8.0); Basophils % 0.5 % (0-1.3); Eosinophils % 2.2 % (0-4.4); Hematocrit 34.8 % (36.0-45.0); Hemoglobin 10.7 g/dL (12.0-15.0); MCH 22.5 pg (27.0-35.0); MCHC 30.8 g/dL (32.0-36.0); MCV 72.9 fL (80-100); MPV 7.2 fL (7.6-11.3); Monocytes % 3.6 % (3.3-12.3); Neutrophils % 77.7 % (41.7-73.7); Nucleated Red Blood Cells % 0.2 % (0-0); Platelets 511 thou/uL (152-406); RBC Red Blood Cell Count 4.77 M/uL (3.86-4.86); Red Cell Distribution Width 19.4 % (12.1-15.2)
[2024-05-20] MEDS ORDERED: IPRATROPIUM BROM 0.5MG/2.5ML ONE (19:27)
[2024-05-20 19:28] LABS: PT Prothrombin Time 22.2 SECONDS (9.4-12.5); Protime INR 2.02
[2024-05-20] MEDS ORDERED: METHYLPREDNISOLONE 125 MG INJ ONE (19:28)
[2024-05-20] MEDS ORDERED: LEVALBUTEROL 1.25 MG/3 ML NEB ONE ×2 (19:28→21:20)
[2024-05-20] MEDS ORDERED: FAMOTIDINE 20 MG/2 ML VIAL IV ONE (19:29)
[2024-05-20] MEDS ORDERED: predniSONE 20 MG TAB ONE (19:29)
[2024-05-20] MEDS ORDERED: Levofloxacin500mg IV 500 MG/100 ML BAG IV ONE (19:29)
[2024-05-20] MEDS ORDERED: NA CHLORIDE 0.9% 1,000 ML ONE ×2 (19:30→21:21)
[2024-05-20] MEDS ORDERED: NA CHLORIDE 0.9% 500 ML ONE (19:30)
[2024-05-20 19:41] LABS: AST/SGOT 25 U/L (15-37); Albumin 2.7 g/dL (3.4-5.0); Albumin/Globulin Ratio 0.6 (1.1-1.8); Alkaline Phosphatase 144 U/L (45-117); Anion Gap 8.1 mEq/L (5.0-15.0); BUN Blood Urea Nitrogen 12 mg/dL (7-18); Bicarbonate 31 mEq/L (21-32); Bilirubin Total 0.2 mg/dL (0.2-1.0); Globulin 4.6 g/dL (2.3-3.5); Glomerular Filtration Rate 115 ml/min (=/>90); Glucose Level 108 mg/dL (74-106); Magnesium 2.3 mg/dL (1.6-2.4); NT PRO-BNP 104 pg/mL (<125); Potassium 3.1 mEq/L (3.5-5.1); Protein, Total 7.3 g/dL (6.4-8.2); Sodium Level 141 mEq/L (136-145); Troponin High Sensitivity 4.5 pg/mL (<58.9)
[2024-05-20 19:43] LABS: ALT/SGPT < 14 U/L (13-56); Bilirubin Direct < 0.2 mg/dL (0-0.2)
--- NOTE | 2024-05-20 19:55 | RAD REPORT ---
EXAM DESCRIPTION: RAD - Chest Single View - 05/20/2024 7:48 pm CLINICAL HISTORY: Cough;COPD;Dyspnea COMPARISON: Chest Single View dated 02/27/2024; Chest Single View dated 12/29/2023; Chest Single View dated 12/02/2023; Chest Single View dated 08/12/2023; Chest For Pe Angio dated 02/27/2024 FINDINGS: Lines: None. Lungs: Worsening bilateral airspace disease best seen within the lung bases but also within the upper lungs bilaterally. Pleural: No significant pleural effusions or pneumothorax. Cardiac: The heart size is within normal limits. Mediastinum: Within normal limits. Bones: No acute fractures. Other: None IMPRESSION: New bilateral airspace disease favored to represent multifocal pneumonia.
[2024-05-20 20:09] LABS: Arterial Blood Carboxyhemoglob 2.4 % (0-1.5); Blood Gas Oxyhemoglobin 85.3 % (94-97); Blood Gas THB 10.3 g/dl (12-18)
[2024-05-20 20:33] LABS: SARS-CoV-2 Antigen CONTROL BLUE LINE VIS/BG OK; SARS-CoV-2 Antigen Rapid Res Negative (Negative)
--- NOTE | 2024-05-20 21:00 | ER ---
Nurse's Notes [facility] Name: Ceci Ward Age: 43 yrs Sex: Female : 1980 Arrival Date: 05/20/2024 Time: 18:33 Bed 8 Private MD: Diagnosis: Pneumonia due to other specified bacteria-bilateral multifocal;Hypokalemia;COPD/ Chronic obstructive pulmonary disease with (acute) exacerbation;Tobacco abuse counseling;Tobacco use;Hypoxemia Presentation: 05/20 18:48 Chief complaint: Patient states: Here for low oxygen levels and shortness of breath. Pt cm10 states that last month she had pneumonia. Coronavirus screen: Client denies travel out of the [place] in the last 14 days. At this time, the client does not indicate any symptoms associated with coronavirus-19. Ebola Screen: Patient denies travel to an Ebola-affected area in the 21 days before illness onset. No symptoms or risks identified at this time. Initial Sepsis Screen: Does the patient meet any 2 criteria? RR > 20 per min. HR > 90 bpm. Does the patient have a suspected source of infection? No. Patient's initial sepsis screen is negative. Risk Assessment: Do you want to hurt yourself or someone else? Patient reports no desire to harm self or others. Onset of symptoms was May 20, 2024. 18:48 Method Of Arrival: Wheelchair cm10 18:48 Acuity: JES 2 cm10 Triage Assessment: 22:15 General: Behavior is anxious, restless, ORIENTED TO PERSON AND PLACE. PT HAS SLURRED br2 SPEECH AND HARD TO UNDERSTAND. DR RAMIRES NOTFIED. . 05/21 00:55 General: Appears uncomfortable, slender, unkempt. Respiratory: Reports shortness of br2 breath Onset: The symptoms/episode began/occurred today. 00:57 Respiratory: the patient has severe shortness of breath. br2 Historical: - Allergies: 05/20 18:49 Propoxyphene; cm10 18:49 propoxyphene napsylate; cm10 18:49 Tylenol-Codeine; cm10 - PMHx: 18:49 gastric ulcers; cm10 - PSHx: 18:49 abdominal; gastric; cm10 - Immunization history:: Adult Immunizations up to date. - Infectious Disease History:: Denies. - Social history:: Smoking status: Patient reports the use of cigarette tobacco products, smokes 1.5 packs per day. Screenin:01 [facility] ED Fall Risk Assessment (Adult) History of falling in the last 3 months, ld1 including since admission No falls in past 3 months (0 pts) Confusion or Disorientation No (0 pts) Intoxicated or Sedated No (0 pts) Impaired Gait No (0 pts) Mobility Assist Device Used No (0 pt) Altered Elimination No (0 pt) Score/Fall Risk Level 0 - 2 = Low Risk Oriented to surroundings, Maintained a safe environment, Educated pt \T\ family on fall prevention, incl call for assistance when getting out of bed, Assessed \T\ reinforced patient's understanding of fall precautions, Provided non-skid footwear, Hourly rounding (assess needs \T\ fall precautionary measures) done, Used ambulatory aids as needed (educated on \T\ assisted with), Used gait belt as appropriate. Abuse screen: Denies threats or abuse. Denies injuries from another. Nutritional screening: No deficits noted. Tuberculosis screening: No symptoms or risk factors identified. Assessment: 19:00 General: Appears in no apparent distress. comfortable, Behavior is calm, cooperative, ld1 appropriate for age. Pain: Denies pain. Neuro: Level of Consciousness is awake, alert, obeys commands, Oriented to person, place, time, situation, Appropriate for age. Cardiovascular: Capillary refill < 3 seconds Patient's skin is warm and dry. Rhythm is sinus tachycardia. Respiratory: Airway is patent Respiratory effort is even, labored. GI: Abdomen is flat, non-distended. : No signs and/or symptoms were reported regarding the genitourinary system. EENT: No signs and/or symptoms were reported regarding the EENT system. Derm: No signs and/or symptoms reported regarding the dermatologic system. Musculoskeletal: No signs and/or symptoms reported regarding the musculoskeletal system. 20:06 General: Appears in no apparent distress. comfortable, slender, Behavior is calm, br2 cooperative, quiet, Smells of Reports Denies. Pain: Complains of pain in right lower quadrant and left lower quadrant Pain currently is 9 out of 10 on a pain scale. Quality of pain is described as aching. 20:13 Respiratory: Breath sounds are diminished Breath sounds with wheezes bilaterally. br2 23:02 General: Attempted to call report. No answer . kd3 23:32 General: Attempted to call report. On hold for 20 minutes. . kd3 05/21 00:41 Reassessment: PT IS RESTING WITH EYES CLOSED. PT IS NO LONGER ANXIOUS. EMS AT BEDSIDE br2 FOR TRANSFER OF PATIENT TO [facility] . Vital Signs: 05/20 18:48 BP 110 / 72; Pulse 142; Resp 24; Temp 98.6(O); Pulse Ox 78% on R/A; Weight 49.9 kg; cm10 Height 5 ft. 4 in. ; Pain 9/10; 19:00 BP 110 / 77; Pulse 132; Resp 23; Pulse Ox 92% on 6 lpm NC; ld1 20:04 BP 129 / 87; Pulse 127; Resp 22; Pulse Ox 100% 10 lpm ; br2 22:51 BP 106 / 75; Pulse 138; Resp 24; Pulse Ox 100% on bipap; br2 23:19 BP 111 / 97; Pulse 137; Resp 22; Pulse Ox 99% on BIPAP; br2 23:38 BP 104 / 82; Pulse 131; Resp 24; Pulse Ox 99% on BIPAP; br2 05/21 00:00 BP 117 / 75; Pulse 126; Resp 22; Pulse Ox 97% on BIPAP; br2 00:29 BP 116 / 78; Pulse 118; Resp 20; Pulse Ox 98% on BIPAP; br2 05/20 18:48 Body Mass Index 18.88 (49.90 kg, 162.56 cm) cm10 05/20 18:48 Pain Scale: Adult cm10 [place] Coma Score: 05/20 20:51 Eye Response: spontaneous(4). Motor Response: obeys commands(6). Verbal Response: dhaval oriented(5). Total: 15. ED Course: 18:36 Patient arrived in ED. mg5 18:49 Triage completed. cm10 18:50 Arm band placed on Patient placed in an exam room, on oxygen, on pulse oximetry. cm10 18:50 Oxygen administration via nasal cannula \T\ 6L/min Response to oxygen therapy: symptoms cm10 improved. 18:55 Marlon Ramires MD is Attending Physician. dhaval 18:59 Patient has correct armband on for positive identification. Bed in low position. Call kc6 light in reach. Side rails up X 1. Adult w/ patient. feed crusher on. Pulse ox on. NIBP on. Pillow given. 18:59 Inserted saline lock: 22 gauge in right forearm, using aseptic technique. Blood kc6 collected. Flushed with 10 mL NS. 19:00 Report given to RUBA Aquino \T\ Jackeline Andino RN. kc6 19:01 No provider procedures requiring assistance completed. ld1 19:14 Initial lab(s) drawn, by ED staff, sent to lab. br2 19:14 First set of blood cultures drawn by me. kd3 19:19 Cathryn Arriola, RUBA is Primary Nurse. br2 19:50 XRAY Chest (1 view) In Process Unspecified. EDMS 19:50 Second set of blood cultures drawn by me. kd3 19:57 Blood Culture Adult (2) Sent. br2 19:58 SARS RAPID Sent. br2 19:58 Flu Sent. br2 22:01 Inserted saline lock: 20 gauge in left forearm, using aseptic technique. Flushed with kd3 10 mL NS. 22:55 Accessed 18g left EJ started by Dr Ramires IV discontinued, 1944 pt pulled out 22g iv br2 to right forearm and new IV 20g to left hand right after it was started. 05/21 00:55 Provided Education on: BIPAP. br2 Administered Medications: 05/20 20:47 Discontinued: ns 0.9% 1000 ml IV at 125 ml/hr continuous dhaval 19:54 Drug: levofloxacin IVPB 500 mg 100 ml IVPB once over 60 mins Volume: 100 ml; Route: br2 IVPB; Infused Over: 60 mins; Site: right forearm; 23:48 Follow up: IV Status: Completed infusion; IV Intake: 100ml br2 19:55 Drug: predniSONE PO 60 mg PO once Route: PO; br2 23:49 Follow up: Response: No adverse reaction br2 19:55 Drug: Levalbuterol Inhalation 3.75 mg Inhalation once Route: Inhalation; br2 19:55 Drug: Ipratropium Inhalation Aerosol 0.5 mg Inhalation once Route: Inhalation; br2 19:55 Drug: Famotidine IVP 20 mg IVP once; dilute with 10 mL 0.9% NaCl; give over 2 minutes br2 Route: IVP; Site: right forearm; 23:48 Follow up: Response: No adverse reaction br2 19:56 Drug: NS 0.9% IV 500 ml IV at bolus once Route: IV; Rate: bolus; Site: right forearm; br2 23:44 Follow up: IV Status: Completed infusion; IV Intake: 500ml br2 19:56 Drug: NS 0.9% IV 1000 ml IV at 125 ml/hr continuous Route: IV; Rate: 125 ml/hr; Site: br2 right forearm; 19:56 Drug: MethylPrednisoLONE IVP 125 mg IVP once Route: IVP; Site: right forearm; br2 23:49 Follow up: Response: No adverse reaction br2 20:46 CANCELLED (Duplicate Order): ns 0.9% 500 ml IV at bolus once dhaval 22:01 Drug: Ativan IVP 0.5 mg IVP once Route: IVP; Site: left forearm; kd3 23:46 Follow up: Response: Anxiety unchanged br2 22:12 Drug: Ativan IVP 0.5 mg IVP once Route: IVP; Site: left forearm; kd3 23:45 Follow up: Response: Anxiety unchanged br2 22:23 Drug: Ativan IVP 1 mg IVP once Route: IVP; Site: left forearm; kd3 23:47 Follow up: Response: Anxiety unchanged br2 22:45 Drug: Magnesium Sulfate IVPB 1 grams IVPB once over 1 hrs Route: IVPB; Infused Over: 1 br2 hrs; Site: right jugular; 23:42 Follow up: IV Status: Completed infusion br2 05/21 00:37 Follow up: IV Status: Infusion continued upon transfer br2 05/20 22:45 Drug: Potassium PO Effervescent Tablet 50 mEq PO once; dissolve in 4 ounces of water or br2 juice Route: PO; 23:46 Follow up: Response: No adverse reaction br2 22:46 Drug: vancoMYCIN IVPB 1 grams IVPB once over 2 hrs Route: IVPB; Infused Over: 2 hrs; br2 Site: left forearm; 23:41 Follow up: IV Status: Completed infusion; IV Intake: 250ml br2 22:46 Drug: NS 0.9% IV 1000 ml IV at 1 bolus Per protocol; 1000 mL bolus Route: IV; Rate: 1 br2 bolus; Site: left forearm; 05/21 00:38 Follow up: IV Status: Completed infusion br2 05/20 22:46 Drug: Levalbuterol Inhalation 2.5 mg Inhalation once Route: Inhalation; br2 22:47 Drug: Meropenem IV 1 grams IV at per protocol once; (mix in NS 100 mL) Route: IV; Rate: br2 per protocol; Site: left jugular; 23:45 Follow up: IV Status: Completed infusion; IV Intake: 100ml br2 23:13 Drug: NS 0.9% with KCl IV 20 mEq/L 1000 ml IV at 125 ml/hr continuous Route: IV; Rate: br2 125 ml/hr; Site: left forearm; 05/21 00:36 Follow up: IV Status: Infusion continued upon transfer br2 05/20 23:46 Drug: Ativan IVP 2 mg IVP once Route: IVP; Site: right forearm; kd3 05/21 00:51 Follow up: Response: Anxiety decreased br2 Medication: 00:57 VIS not applicable for this client. br2 Intake: 05/20 23:41 IV: 250ml; Total: 250ml. br2 23:44 IV: 500ml; Total: 750ml. br2 23:45 IV: 100ml; Total: 850ml. br2 23:48 IV: 100ml; Total: 950ml. br2 Outcome: 20:59 ER care complete, transfer ordered by MD. puentes 05/21 00:53 Transferred by ground EMS [facility]. Note: [facility] br2 Condition: stable Discharge instructions given to patient, Instructed on the need for transfer, 00:58 Patient left the ED. br2 Signatures: Dispatcher [employer] EDMarlon Pearl MD MD cha Sims, Lauren, RN RN Mila Carpenter RN RN kd3 Shruthi Otero RN RN kc6 Trinity Da Silva RN RN [address] [place] [id number] Cathryn Arriola RN RN br2 Corrections: (The following items were deleted from the chart) 05/20 23:26 22:00 General: br2 br2
--- NOTE | 2024-05-20 21:00 | EDPHYS ---
Physician Documentation [facility] Name: Ceci Ward Age: 43 yrs Sex: Female : 1980 Arrival Date: 05/20/2024 Time: 18:33 Bed 8 Private MD: ED Physician Marlon Limon HPI: 05/20 20:50 This 43 yrs old Female presents to ER via Wheelchair with complaints of dhaval Shortness Of Breath. 20:50 The patient has shortness of breath at rest, with light activity. Onset: The dhaval symptoms/episode began/occurred 5 day(s) ago. Duration: The symptoms are continuous, and are steadily getting worse. The patient's shortness of breath is aggravated by coughing, light activity, supine position. Associated signs and symptoms: Pertinent positives: productive cough, fever. Severity of symptoms: At their worst the symptoms were moderate in the emergency department the symptoms are unchanged. The patient has experienced similar episodes in the past, multiple times. Historical: - Allergies: 18:49 Propoxyphene; cm10 18:49 propoxyphene napsylate; cm10 18:49 Tylenol-Codeine; cm10 - PMHx: 18:49 gastric ulcers; cm10 - PSHx: 18:49 abdominal; gastric; cm10 - Immunization history:: Adult Immunizations up to date. - Infectious Disease History:: Denies. - Social history:: Smoking status: Patient reports the use of cigarette tobacco products, smokes 1.5 packs per day. ROS: 20:51 Constitutional: Negative for fever, chills, and weight loss, Eyes: Negative for injury, dhaval pain, redness, and discharge, ENT: Negative for injury, pain, and discharge, Neck: Negative for injury, pain, and swelling, Abdomen/GI: Negative for abdominal pain, nausea, vomiting, diarrhea, and constipation, Back: Negative for injury and pain, : Negative for injury, bleeding, discharge, and swelling, MS/Extremity: Negative for injury and deformity, Skin: Negative for injury, rash, and discoloration, Neuro: Negative for headache, weakness, numbness, tingling, and seizure, Psych: Negative for depression, anxiety, suicide ideation, homicidal ideation, and hallucinations, Allergy/Immunology: Negative for hives, rash, and allergies, Endocrine: Negative for neck swelling, polydipsia, polyuria, polyphagia, and marked weight changes, Hematologic/Lymphatic: Negative for swollen nodes, abnormal bleeding, and unusual bruising, 20:51 Cardiovascular: Positive for chest pain, palpitations, 20:51 Respiratory: Positive for cough, dyspnea on exertion, shortness of breath, at rest. wheezing, inspiratory, expiratory, Exam: 20:51 Constitutional: This is a well developed, well nourished patient who is awake, alert, dhaval and in no acute distress. Head/Face: Normocephalic, atraumatic. Eyes: Pupils equal round and reactive to light, extra-ocular motions intact. Lids and lashes normal. Conjunctiva and sclera are non-icteric and not injected. Cornea within normal limits. Periorbital areas with no swelling, redness, or edema. ENT: Nares patent. No nasal discharge, no septal abnormalities noted. Tympanic membranes are normal and external auditory canals are clear. Oropharynx with no redness, swelling, or masses, exudates, or evidence of obstruction, uvula midline. Mucous membranes moist. Neck: Trachea midline, no thyromegaly or masses palpated, and no cervical lymphadenopathy. Supple, full range of motion without nuchal rigidity, or vertebral point tenderness. No Meningismus. Chest/axilla: Normal chest wall appearance and motion. Nontender with no deformity. No lesions are appreciated. Abdomen/GI: Soft, non-tender, with normal bowel sounds. No distension or tympany. No guarding or rebound. No evidence of tenderness throughout. Back: No spinal tenderness. No costovertebral tenderness. Full range of motion. Female : Normal external genitalia. Skin: Warm, dry with normal turgor. Normal color with no rashes, no lesions, and no evidence of cellulitis. MS/ Extremity: Pulses equal, no cyanosis. Neurovascular intact. Full, normal range of motion. Neuro: Awake and alert, GCS 15, oriented to person, place, time, and situation. Cranial nerves II-XII grossly intact. Motor strength 5/5 in all extremities. Sensory grossly intact. Cerebellar exam normal. Normal gait. Psych: Awake, alert, with orientation to person, place and time. Behavior, mood, and affect are within normal limits. 20:51 Cardiovascular: Rate: tachycardic, actual rate is 127 bpm, Rhythm: regular, Pulses: Pulses are 4+ in bilateral radial, brachial, femoral, popliteal, posterior tibial and and dorsalis pedis arteries.. Heart sounds: normal, Edema: is not appreciated, JVD: is not appreciated, 20:51 ECG was reviewed by the Attending Physician. 20:51 Respiratory: mild respiratory distress is noted, Respirations: labored breathing, that is mild, that is moderate, accessory muscle usage, that is mild, prolonged exhalation, that is mild, tachypnea, that is mild, Breath sounds: bronchial sounds, that are moderate, are scattered, decreased breath sounds, that are moderate, are located in both bases, rhonchi, that are moderate, are scattered, stridor, is not appreciated, + upper airway congestion. wheezing: inspiratory expiratory Respiratory rate: 22 Vital Signs: 18:48 BP 110 / 72; Pulse 142; Resp 24; Temp 98.6(O); Pulse Ox 78% on R/A; Weight 49.9 kg; cm10 Height 5 ft. 4 in. ; Pain 9/10; 19:00 BP 110 / 77; Pulse 132; Resp 23; Pulse Ox 92% on 6 lpm NC; ld1 20:04 BP 129 / 87; Pulse 127; Resp 22; Pulse Ox 100% 10 lpm ; br2 22:51 BP 106 / 75; Pulse 138; Resp 24; Pulse Ox 100% on bipap; br2 23:19 BP 111 / 97; Pulse 137; Resp 22; Pulse Ox 99% on BIPAP; br2 23:38 BP 104 / 82; Pulse 131; Resp 24; Pulse Ox 99% on BIPAP; br2 05/21 00:00 BP 117 / 75; Pulse 126; Resp 22; Pulse Ox 97% on BIPAP; br2 00:29 BP 116 / 78; Pulse 118; Resp 20; Pulse Ox 98% on BIPAP; br2 05/20 18:48 Body Mass Index 18.88 (49.90 kg, 162.56 cm) cm10 05/20 18:48 Pain Scale: Adult cm10 Olegario Coma Score: 05/20 20:51 Eye Response: spontaneous(4). Motor Response: obeys commands(6). Verbal Response: dhaval oriented(5). Total: 15. Procedures: 22:04 Peripheral line: by aseptic technique a peripheral line was placed in the left external dhaval jugular vein. MDM: 18:55 Patient medically screened. dhaval 20:55 Differential diagnosis: CHF exacerbation, Chronic Obstructive Pulmonary Disease dhaval obstructed airway, tracheal injury, bronchitis, flu, URI, acute asthma, reactive airway, CHF, anaphylaxis, URI, Myocardial Infarction pneumonia, Pneumothorax pulmonary edema, reactive airway disease, Sepsis Unstable Angina. Antibiotic administration: levofloxacin, merrem, vanco, The patient is for pseudomonal infection. Immunization status:. Data reviewed: vital signs, nurses notes, EMS record, lab test result(s), EKG, radiologic studies, plain films. Consideration of Admission/Observation Escalation of care including admission/observation considered. I considered the following discharge prescriptions or medication management in the emergency department Medications were administered in the Emergency Department. See MAR. Independent interpretation of the following test(s) in the Emergency Department EKG: See my EKG interpretation above. Test considered but Not performed: CT: no ct chest. Historians other than the Patient: Spouse/Significant Other: spouse well informed. Care significantly affected by the following chronic conditions: Chronic Obstructive Pulmonary Disease, gastric ulcers, tobacco abuse. Counseling: I had a detailed discussion with the patient and/or guardian regarding the historical points, exam findings, and any diagnostic results supporting the discharge/admit diagnosis, lab results, radiology results, the need to transfer to another facility, for higher level of care, [facility] does not immediately have the required specialist. 05/20 18:58 Order name: Basic Metabolic Panel; Complete Time: 20:39 [facility] 05/20 18:58 Order name: CBC with Diff; Complete Time: 20:39 [facility] 05/20 18:58 Order name: LFT's; Complete Time: 20:39 [facility] 05/20 18:58 Order name: Magnesium; Complete Time: 20:39 [facility] 05/20 18:58 Order name: NT PRO-BNP; Complete Time: 20:39 [facility] 05/20 18:58 Order name: PT-INR; Complete Time: 20:39 [facility] 05/20 18:58 Order name: Troponin HS; Complete Time: 20:39 [facility] 05/20 18:58 Order name: ABG; Complete Time: 20:39 [facility] 05/20 18:58 Order name: Blood Culture Adult (2) [facility] 05/20 18:58 Order name: Lactate w/ 2H reflex if indic.; Complete Time: 20:39 [facility] 05/20 18:58 Order name: SARS RAPID; Complete Time: 20:39 [facility] 05/20 18:58 Order name: Flu; Complete Time: 20:39 [facility] 05/20 18:58 Order name: XRAY Chest (1 view); Complete Time: 20:39 [facility] 05/20 18:58 Order name: Cardiac monitoring; Complete Time: 18:59 [facility] 05/20 18:58 Order name: EKG - Nurse/Tech; Complete Time: 18:59 [facility] 05/20 18:58 Order name: IV Saline Lock; Complete Time: 18:59 [facility] 05/20 18:58 Order name: Labs collected and sent; Complete Time: 18:59 [facility] 05/20 18:58 Order name: O2 Per Protocol; Complete Time: 18:59 [facility] 05/20 18:58 Order name: O2 Sat Monitoring; Complete Time: 18:59 [facility] 05/20 20:45 Order name: IV Saline Lock - Large Bore; Complete Time: 21:23 dhaval EC:51 Rate is 130 beats/min. Rhythm is regular. QRS [place] is Normal. [place] interval is normal. dhaval QRS interval is normal. QT interval is normal. T waves are Normal. No ST changes noted. Clinical impression: LVH, Sinus tachycardia, and No evidence of ischemia. Interpreted by me. Reviewed by me. Administered Medications: 20:47 Discontinued: ns 0.9% 1000 ml IV at 125 ml/hr continuous dhaval 19:54 Drug: levofloxacin IVPB 500 mg 100 ml IVPB once over 60 mins Volume: 100 ml; Route: br2 IVPB; Infused Over: 60 mins; Site: right forearm; 23:48 Follow up: IV Status: Completed infusion; IV Intake: 100ml br2 19:55 Drug: predniSONE PO 60 mg PO once Route: PO; br2 23:49 Follow up: Response: No adverse reaction br2 19:55 Drug: Levalbuterol Inhalation 3.75 mg Inhalation once Route: Inhalation; br2 19:55 Drug: Ipratropium Inhalation Aerosol 0.5 mg Inhalation once Route: Inhalation; br2 19:55 Drug: Famotidine IVP 20 mg IVP once; dilute with 10 mL 0.9% NaCl; give over 2 minutes br2 Route: IVP; Site: right forearm; 23:48 Follow up: Response: No adverse reaction br2 19:56 Drug: NS 0.9% IV 500 ml IV at bolus once Route: IV; Rate: bolus; Site: right forearm; br2 23:44 Follow up: IV Status: Completed infusion; IV Intake: 500ml br2 19:56 Drug: NS 0.9% IV 1000 ml IV at 125 ml/hr continuous Route: IV; Rate: 125 ml/hr; Site: br2 right forearm; 19:56 Drug: MethylPrednisoLONE IVP 125 mg IVP once Route: IVP; Site: right forearm; br2 23:49 Follow up: Response: No adverse reaction br2 20:46 CANCELLED (Duplicate Order): ns 0.9% 500 ml IV at bolus once dhaval 22:01 Drug: Ativan IVP 0.5 mg IVP once Route: IVP; Site: left forearm; kd3 23:46 Follow up: Response: Anxiety unchanged br2 22:12 Drug: Ativan IVP 0.5 mg IVP once Route: IVP; Site: left forearm; kd3 23:45 Follow up: Response: Anxiety unchanged br2 22:23 Drug: Ativan IVP 1 mg IVP once Route: IVP; Site: left forearm; kd3 23:47 Follow up: Response: Anxiety unchanged br2 22:45 Drug: Magnesium Sulfate IVPB 1 grams IVPB once over 1 hrs Route: IVPB; Infused Over: 1 br2 hrs; Site: right jugular; 23:42 Follow up: IV Status: Completed infusion br2 05/21 00:37 Follow up: IV Status: Infusion continued upon transfer br2 05/20 22:45 Drug: Potassium PO Effervescent Tablet 50 mEq PO once; dissolve in 4 ounces of water or br2 juice Route: PO; 23:46 Follow up: Response: No adverse reaction br2 22:46 Drug: vancoMYCIN IVPB 1 grams IVPB once over 2 hrs Route: IVPB; Infused Over: 2 hrs; br2 Site: left forearm; 23:41 Follow up: IV Status: Completed infusion; IV Intake: 250ml br2 22:46 Drug: NS 0.9% IV 1000 ml IV at 1 bolus Per protocol; 1000 mL bolus Route: IV; Rate: 1 br2 bolus; Site: left forearm; 05/21 00:38 Follow up: IV Status: Completed infusion br2 05/20 22:46 Drug: Levalbuterol Inhalation 2.5 mg Inhalation once Route: Inhalation; br2 22:47 Drug: Meropenem IV 1 grams IV at per protocol once; (mix in NS 100 mL) Route: IV; Rate: br2 per protocol; Site: left jugular; 23:45 Follow up: IV Status: Completed infusion; IV Intake: 100ml br2 23:13 Drug: NS 0.9% with KCl IV 20 mEq/L 1000 ml IV at 125 ml/hr continuous Route: IV; Rate: br2 125 ml/hr; Site: left forearm; 05/21 00:36 Follow up: IV Status: Infusion continued upon transfer br2 05/20 23:46 Drug: Ativan IVP 2 mg IVP once Route: IVP; Site: right forearm; kd3 05/21 00:51 Follow up: Response: Anxiety decreased br2 Disposition: 05/20 20:55 Critical Care:. dhaval Disposition Summary: 05/20/24 20:59 Transfer Ordered Notes: [facility] System dhaval Reason: Higher level of care dhaval Condition: Fair dhaval Problem: an acute exacerbation dhaval Symptoms: have worsened dhaval Accepting Physician: to icu [facility](05/21/24 00:58) br2 Diagnosis - Pneumonia due to other specified bacteria - bilateral multifocal dhaval - Hypokalemia dhaval - COPD/ Chronic obstructive pulmonary disease with (acute) exacerbation dhaval - Tobacco abuse counseling dhaval - Tobacco use dhaval - Hypoxemia dhaval Forms: - Medication Reconciliation Form dhaval - SBAR form dhaval Critical care time excluding procedures: 20:55 Critical care time: Bedside Care: 30 minutes, Consultation: 15 minutes, Family dhaval Intervention: 10 minutes. Total time: 55 minutes Signatures: Dispatcher [employer] EDMarlon Pearl MD MD cha Patel, Setul, MD MD sp3 Mila Reilly, RN RN kd3 Trinity Da Silva, RN RN cm10 Cathryn Arriola, RN RN br2 Corrections: (The following items were deleted from the chart) 18:59 18:58 BASIC METABOLIC PANEL+C.LAB.BRZ ordered. EDMS EDMS 18:59 18:58 CBC+H.LAB.BRZ ordered. EDMS EDMS 18:59 18:58 HEPATIC FUNCTION+C.LAB.BRZ ordered. EDMS EDMS 18:59 18:58 MAGNESIUM+C.LAB.BRZ ordered. EDMS EDMS 18:59 18:58 PROBNP+C.LAB.BRZ ordered. EDMS EDMS 18:59 18:58 PROTIME (+INR)+COAG.LAB.BRZ ordered. EDMS EDMS 18:59 18:58 Troponin High Sensitivity+C.LAB.BRZ ordered. EDMS EDMS 18:59 18:59 BLOOD CULTURE*+BA.LAB.BRZ ordered. EDMS EDMS 18:59 18:59 LACTATE+C.LAB.BRZ ordered. EDMS EDMS 18:59 18:59 SARS-COV-2 Antigen Rapid+I.LAB.BRZ ordered. EDMS EDMS 18:59 18:59 Influenza Screen (A \T\ B)+BA.LAB.BRZ ordered. EDMS EDMS 18:59 18:59 Chest Single View+RAD.RAD.BRZ ordered. EDMS EDMS 18:59 18:59 Arterial Blood Gas+RC.LAB.BRZ ordered. EDMS EDMS 18:59 18:59 BiPap ([employer] Only)+RC.RAD.BRZ ordered. EDMS EDMS 20:46 20:45 NS 0.9% IV 500 ml IV at bolus once ordered. dhaval dhaval 22:03 22:03 BiPap ([employer] Only)+RC.RAD.BRZ ordered. EDMS EDMS 05/21 00:58 05/20 20:59 to icu [facility] dhaval br2
[2024-05-20] MEDS ORDERED: VANCOMYCIN 1 GM/VIAL ONE (21:20)
[2024-05-20] MEDS ORDERED: Meropenem 1000 MG/VIAL IV ONE (21:20)
[2024-05-20] MEDS ORDERED: POTASSIUM 25 MEQ EFFERV TAB ONE (21:21)
[2024-05-20] MEDS ORDERED: NA CHLORIDE 0.9% 100 ML ONE (21:21)
[2024-05-20] MEDS ORDERED: NS KCL 20MEQ 1,000 ML IV ONE (21:21)
[2024-05-20] MEDS ORDERED: NA CHLORIDE 0.9% 250 ML ONE (21:21)
[2024-05-20] MEDS ORDERED: MAGNESIUM SULFATE 1 gm IVPB 1 GM/100 ML BAG IV ONE (21:21)
[2024-05-20] MEDS ORDERED: LORazepam 2 MG/ML VIAL ONE ×3 (21:57→23:38)
[2024-05-21 02:33] VITALS: TEMP 98.6
[2024-05-21 02:45] VITALS: BP 116/78; O2SAT 98
--- NOTE | 2024-05-21 13:06 | EKG ---
Test Date: 2024-05-20 Test Time: 18:57:22 Screening Tech: Jon SANDY MEASUREMENT RESULTS: Intervals: Rate: 130 [place]: 128 QRSD: 76 QT: 276 QTc: 406 [place]: P: 75 [place]: 128 QRS: 159 T: 60 INTERPRETIVE STATEMENTS: Sinus tachycardia Biatrial enlargement Right ventricular hypertrophy Abnormal ECG Compared to ECG 02/27/2024 09:44:39 Right ventricular hypertrophy now present Sinus rhythm no longer present Myocardial infarct finding no longer present Electronically Signed On 05-21-24 13:05:06 CDT by Duane Fernando
== END 2024-05-21 00:58 | disposition short-term general hospital (02) ==
LOC: ER 18:33
DX: J15.8 Pneumonia due to other specified bacteria (principal); R09.02 Hypoxemia; J44.1 Chronic obstructive pulmonary disease with (acute) exacerbation; E87.6 Hypokalemia; Z71.6 Tobacco abuse counseling; Z72.0 Tobacco use; Z11.52 Encounter for screening for COVID-19
CPT/HCPCS: 93005; 87040 ×2; 85025; 80048; 36415; 83735; 85610; 80076; 83605; 84484; 83880; 87804 ×2; 71045; 82805; 99285; 87811; 36600; 94660; 36569; J7512; J3475; J7614 ×2; J7644; J2185; J2919; J7050; J7040; J7030 ×2; J3480

== ENCOUNTER 2024-07-31 13:39 | Emergency (ER) | payer OTHER ==
--- NOTE | 2024-07-31 15:12 | RAD REPORT ---
Procedure: Chest Single View HISTORY: Chest pain COMPARISON: May 2024 FINDINGS: Mild to moderate bilateral patchy lung opacities. No significant pleural effusion noted. The heart is normal size. IMPRESSION: Mild to moderate bilateral patchy lung opacities may represent pneumonia or pneumonitis
[2024-07-31] MEDS ORDERED: LEVALBUTEROL 1.25 MG/3 ML NEB ONE (15:46)
[2024-07-31] MEDS ORDERED: NA CHLORIDE 0.9% 1,000 ML ONE (15:46)
[2024-07-31 16:07] LABS: Absolute Basophils 0.1 K/uL (0-0.5); Absolute Eosinophils 0.1 K/uL (0-0.5); Absolute Lymphocytes (CBC) 1.6 K/uL (0.7-4.9); Absolute Monocytes 0.5 K/uL (0.1-1.3); Absolute Neutrophil 7.7 K/uL (1.8-8.0); Basophils % 0.5 % (0-1.3); Eosinophils % 1.3 % (0-4.4); Hematocrit 38.4 % (36.0-45.0); Hemoglobin 11.9 g/dL (12.0-15.0); Lymphocytes % 16.3 % (15.3-44.8); MCH 26.6 pg (27.0-35.0); MCHC 31.1 g/dL (32.0-36.0); MCV 85.6 fL (80-100); MPV 7.6 fL (7.6-11.3); Monocytes % 5.3 % (3.3-12.3); Neutrophils % 76.6 % (41.7-73.7); Platelets 332 thou/uL (152-406); RBC Red Blood Cell Count 4.49 M/uL (3.86-4.86)
[2024-07-31 16:11] LABS: PT Prothrombin Time 11.9 SECONDS (9.4-12.5); Protime INR 1.06
[2024-07-31 16:31] LABS: ALT/SGPT 34 U/L (13-56); AST/SGOT 38 U/L (15-37); Albumin 2.6 g/dL (3.4-5.0); Albumin/Globulin Ratio 0.7 (1.1-1.8); Alkaline Phosphatase 105 U/L (45-117); Anion Gap 2.7 mEq/L (5.0-15.0); BUN Blood Urea Nitrogen 9 mg/dL (7-18); Bicarbonate 32 mEq/L (21-32); Globulin 3.8 g/dL (2.3-3.5); Glomerular Filtration Rate 114 ml/min (=/>90); Glucose Level 112 mg/dL (74-106); Lipase 18 U/L (13-75); Magnesium 1.7 mg/dL (1.6-2.4); NT PRO-BNP 66 pg/mL (<125); Potassium 3.7 mEq/L (3.5-5.1); Protein, Total 6.4 g/dL (6.4-8.2); Sodium Level 141 mEq/L (136-145); Troponin High Sensitivity 4.4 pg/mL (<58.9)
[2024-07-31 16:32] LABS: SARS-CoV-2 Antigen CONTROL BLUE LINE VIS/BG OK; SARS-CoV-2 Antigen Rapid Res Negative (Negative)
[2024-07-31 16:32] LABS: Bilirubin Direct < 0.2 mg/dL (0-0.2); Bilirubin Total < 0.2 mg/dL (0.2-1.0)
[2024-07-31 16:58] LABS: Anisocytosis 1+; Blood Morphology Comment NOTED (NOT SEEN); Platelet Estimate ADEQ; White Blood Cell Scan OK (OK)
[2024-07-31] MEDS ORDERED: MORPHINE 2 MG/ML SYR ONE (17:21)
[2024-07-31 17:37] LABS: Specific Gravity 1.009 (1.005-1.030); Sqamous Epithelial <5 /HPF (None Seen); Urine Bacteria <20 /HPF (<20); Urine Bilirubin NEGATIVE (Negative); Urine Blood Negative (Negative); Urine Clarity Clear (Clear); Urine Color Light-Yellow (Yellow); Urine Culture Reflex Order NOT NEEDED; Urine Glucose NEGATIVE (Negative); Urine Ketones NEGATIVE (Negative); Urine Micro Reflex YN NO BILL MICROSCOPIC; Urine Mucus Slight /HPF (None Seen); Urine Nitrite NEGATIVE (Negative); Urine Protein NEGATIVE (Negative); Urine RBC <5 /HPF (None Seen); Urine Urobilinogen Normal (Normal); Urine WBC <5 /HPF (<5); Urine pH 5.5 (5.0-7.0)
[2024-07-31 17:39] LABS: Specific Gravity 1.009 (1.005-1.030)
[2024-07-31 17:47] LABS: Barbiturates NEGATIVE (NEGATIVE); Benzodiazepines POSITIVE (NEGATIVE); Cocaine NEGATIVE (NEGATIVE); METHAMPHETAM NEGATIVE (NEGATIVE); Methadone NEGATIVE (NEGATIVE); Opiates POSITIVE (NEGATIVE); Phencyclidine NEGATIVE (NEGATIVE); THC Cannibis NEGATIVE (NEGATIVE)
--- NOTE | 2024-07-31 19:35 | RAD REPORT ---
EXAMINATION: CTA CHEST PE CLINICAL INDICATION: sob TECHNIQUE: 100 cc 370 Isovue administered intravenously. This examination was performed according to an angiographic protocol with 3D post-processing. This involves 3D reconstructions, MIPs, volume rendered images and/or shaded surface rendering. One or more of the following dose reduction techniqu es were used: Automated exposure control, adjustment of the mA and/or kV according to patient size, and/or iterative reconstruction. Unless otherwise specified, incidental findings do not require dedic ated imaging follow-up. [id number]. COMPARISON: [facility] 2023. FINDINGS: A pulmonary embolus is not seen. An aortic dissection not noted. No pleural effusion. No pericardial effusion. Mild mediastinal and hilar lymphadenopathy probably reactive Moderate groundglass opacities within the lungs bilaterally. IMPRESSION: No evidence of a pulmonary embolism Moderate groundglass opacities within the lungs bilaterally may indicate infection, pneumonitis or p ulmonary edema
--- NOTE | 2024-07-31 19:35 | RAD REPORT ---
EXAMINATION: CT ABDOMEN AND PELVIS WITH CONTRAST CLINICAL INDICATION: Abdominal pain TECHNIQUE: CT abdomen and pelvis was performed, after the administration of 100 cc Isovue-300.. Sagit sita and coronal reconstructions were obtained. One or more of the following dose reduction techniques were used: Automated exposure control, adjustment of the mA and kV according to patient si ze, and iterative reconstruction. Unless otherwise specified, incidental findings do not require dedicated imaging follow-up. [id number]. Oral contrast was not given which limits evaluation of bowel and appendix. COMPARISON: December 2023 FINDINGS: Post surgical changes involving the stomach. Cholecystectomy. Prominence of the extrahepatic biliary tree. Spleen, pancreas, adrenals and kidneys unremarkable No evidence of diverticulitis. No adnexal mass : IMPRESSION: Prominence of the extrahepatic biliary tree. This may be a normal finding in this patient status post cholecystectomy. Pathology such as stricture can also result in this appearance. This should be correlated clinically and with appropriate lab values.
--- NOTE | 2024-07-31 20:25 | ER ---
Nurse's Notes [facility] Name: Ceci Ward Age: 43 yrs Sex: Female : 1980 Arrival Date: 07/31/2024 Time: 13:39 Bed 14 Private MD: Diagnosis: Pneumonia, unspecified organism;Abdominal distension (gaseous) Presentation: 07/31 14:03 Chief complaint: Patient states: she has been having abdominal swelling with abnormal ap3 bruising for 3 days to a week. patient also complains of shortness of breath. Coronavirus screen: At this time, the client does not indicate any symptoms associated with coronavirus-19. Ebola Screen: No symptoms or risks identified at this time. Initial Sepsis Screen: Does the patient meet any 2 criteria? HR > 90 bpm. Does the patient have a suspected source of infection? No. Patient's initial sepsis screen is negative. Risk Assessment: Do you want to hurt yourself or someone else? Patient reports no desire to harm self or others. Onset of symptoms is unknown. 14:03 Method Of Arrival: Ambulatory ap3 14:03 Acuity: JES 2 ap3 Triage Assessment: 14:05 General: Appears in no apparent distress. Behavior is calm, cooperative, appropriate ap3 for age. Pain: Denies pain. Neuro: Level of Consciousness is awake, alert, obeys commands, Oriented to person, place, time, situation. Cardiovascular: Patient's skin is warm and dry. Respiratory: Airway is patent Respiratory effort is even, unlabored, Respiratory pattern is regular, symmetrical. GI: Abdomen is round distended, Reports bloating. Derm: Wound noted abdomen Reports bruising. Historical: - Allergies: 14:05 Propoxyphene; ap3 14:05 propoxyphene napsylate; ap3 14:05 Tylenol-Codeine; ap3 - PMHx: 14:05 gastric ulcers; ap3 - PSHx: 14:05 abdominal; gastric; ap3 - Immunization history:: Client reports having NOT received the Covid vaccine. Flu vaccine is not up to date. - Infectious Disease History:: Denies. - Social history:: Smoking status: Patient reports the use of cigarette tobacco products, smokes 1.5 packs per day. Screenin:07 Abuse screen: Denies threats or abuse. Nutritional screening: No deficits noted. ap3 Tuberculosis screening: No symptoms or risk factors identified. 20:49 [facility] ED Fall Risk Assessment (Adult) History of falling in the last 3 months, rg5 including since admission No falls in past 3 months (0 pts) Confusion or Disorientation No (0 pts) Intoxicated or Sedated No (0 pts) Impaired Gait No (0 pts) Mobility Assist Device Used No (0 pt) Altered Elimination No (0 pt) Score/Fall Risk Level 0 - 2 = Low Risk. Assessment: 16:09 Reassessment: Patient appears in no apparent distress at this time. Patient and/or db family updated on plan of care and expected duration. Pain level reassessed. Patient is alert, oriented x 3, equal unlabored respirations, skin warm/dry/pink. General: Appears in no apparent distress. comfortable, Behavior is calm, cooperative. Neuro: Level of Consciousness is awake, alert, obeys commands, Oriented to person, place, time, situation. Respiratory: Airway is patent Respiratory effort is even, unlabored, Respiratory pattern is regular, symmetrical. GI: Abdomen is distended, Abd is soft Reports lower abdominal pain, upper abdominal pain. 17:30 Reassessment: Patient appears in no apparent distress at this time. Patient and/or db family updated on plan of care and expected duration. Pain level reassessed. Patient is alert, oriented x 3, equal unlabored respirations, skin warm/dry/pink. PER CT LEFT FOREARM IV DID NOT WORK FOR CT SCAN WITH CONTRAST NEEDS NEW IV ACCESS. IV STILL FLUSHES. NO REDNESS OR TENDERNESS NOTED. 19:05 General: Appears in no apparent distress. comfortable, Behavior is calm, cooperative, rg5 appropriate for age. 19:05 Pain: Denies pain. Neuro: Level of Consciousness is Oriented to person, place, time, rg5 situation. Cardiovascular: Capillary refill < 3 seconds Patient's skin is warm and dry. Respiratory: Airway is patent Respiratory effort is even, unlabored, Respiratory pattern is regular, symmetrical. GI: Abdomen is distended, Bowel sounds present X 4 quads. Abd is soft. : No signs and/or symptoms were reported regarding the genitourinary system. EENT: No deficits noted. Derm: Skin is intact, Skin is dry, Skin is normal, Skin temperature is warm. Musculoskeletal: Circulation, motion, and sensation intact. Range of motion: intact in all extremities. 20:30 Reassessment: Patient and/or family updated on plan of care and expected duration. Pain rg5 level reassessed. Patient states feeling better. Patient states symptoms have improved. Vital Signs: 14:03 BP 101 / 80; Pulse 123; Resp 20; Temp 97.9; Pulse Ox 94% on R/A; Weight 54.43 kg; ap3 Height 5 ft. 4 in. ; 14:07 BP 111 / 90; Pulse 128; Pulse Ox 96% on R/A; ap3 16:16 BP 108 / 80; Pulse 112; Resp 18; Pulse Ox 95% ; db 17:15 BP 112 / 90; Pulse 106; Resp 18; Pulse Ox 100% ; db 18:00 BP 101 / 77; Pulse 99; Resp 18; Pulse Ox 100% on R/A; db 19:45 BP 124 / 95; Pulse 97; Resp 17; Temp 98; Pulse Ox 99% on R/A; Pain 0/10; rg5 14:03 Body Mass Index 20.60 (54.43 kg, 162.56 cm) ap3 19:45 Pain Scale: Adult rg5 ED Course: 13:42 Patient arrived in ED. mr 13:43 Marlon Choe PA is PHCP. cp 13:43 Marlon Limon MD is Attending Physician. cp 14:05 Triage completed. ap3 14:07 Arm band placed on right wrist. ap3 15:00 XRAY Chest (1 view) In Process Unspecified. EDMS 15:41 Olga Addison, RN is Primary Nurse. db 15:47 Initial lab(s) drawn, by me, sent to lab. Inserted saline lock: 22 gauge in left db forearm, using aseptic technique. Blood collected. Flushed with 10 mL NS. 16:10 Patient has correct armband on for positive identification. Bed in low position. Call db light in reach. Side rails up X 1. Pulse ox on. NIBP on. Client placed on continuous cardiac and pulse oximetry monitoring. NIBP monitoring applied. hopper filler on. Warm blanket given. 17:35 Missed attempt(s): 22 gauge in right antecubital area. Bleeding controlled, band aid db applied, catheter tip intact. 17:40 Inserted saline lock: 22 gauge in right hand, using aseptic technique. db 17:45 Inserted saline lock: 22 gauge in right wrist, using aseptic technique. Flushed with 10 db mL NS. 18:54 CT Chest For PE Angio In Process Unspecified. EDMS 18:58 CT Abd/Pelvis - IV Contrast Only In Process Unspecified. EDMS 19:18 Tru Ryan, RN is Primary Nurse. rg5 20:22 Pedro Uriostegui MD is Referral Physician. cp 20:49 Provided Education on: POST ER CARE. rg5 20:49 No provider procedures requiring assistance completed. IV discontinued, bleeding rg5 controlled, No redness/swelling at site. Pressure dressing applied. Administered Medications: 15:26 CANCELLED (Physician Discretion): ns 0.9% 500 ml 500 ml IV at 1 bolus once; to be given cp as a bolus over 30 minutes 15:55 Drug: NS 0.9% IV 1000 ml IV at 1000 ml once; to be given as a bolus over 60 minutes db Route: IV; Rate: 1000 ml; Site: left forearm; 20:29 Follow up: IV Status: Completed infusion; IV Intake: 1000ml rg5 16:00 Drug: Levalbuterol Inhalation 1.25 mg Inhalation once Route: Inhalation; db 17:35 Drug: morphine IVP or IV 2 mg IVP once over 4 mins Route: IVP; Infused Over: 4 mins; db Site: right wrist; 19:05 Follow up: Response: No adverse reaction; Temperature is increased rg5 Medication: 20:49 VIS not applicable for this client. rg5 Intake: 20:29 IV: 1000ml; Total: 1000ml. rg5 Outcome: 20:24 Discharge ordered by MD. cp 20:49 Discharged to home ambulatory, rg5 20:49 Condition: stable 20:49 Demonstrated understanding of instructions, follow-up care, medications, Prescriptions given X 2, 20:51 Patient left the ED. rg5 Signatures: Dispatcher [employer] EDMT Dulce Novoa, Reg Reg mr Marlon Choe PA PA cp Prokisch, Amanda, RN RN ap3 Olga Addison RN RN db Tru Ryan, RN RN rg5 Corrections: (The following items were deleted from the chart) 18:00 17:45 morphine IVP or IV 2 mg IVP in right wrist over 4 mins db db
--- NOTE | 2024-07-31 20:25 | EDPHYS ---
Physician Documentation [facility] Name: Ceci Ward Age: 43 yrs Sex: Female : 1980 Arrival Date: 07/31/2024 Time: 13:39 Bed 14 Private MD: ED Physician Marlon Limon HPI: 07/31 14:15 This 43 yrs old Female presents to ER via Ambulatory with complaints of Abdominal cp Swelling. 14:15 The patient presents with abdominal distention that is diffuse. Onset: The cp symptoms/episode began/occurred 3 day(s) ago. The symptoms do not radiate. Associated signs and symptoms: Pertinent positives: shortness of breath, Pertinent negatives: blood in stools, chest pain, constipation, diarrhea, fever. The symptoms are described as dull. Severity of pain: in the emergency department the pain is unchanged. Historical: - Allergies: 14:05 Propoxyphene; ap3 14:05 propoxyphene napsylate; ap3 14:05 Tylenol-Codeine; ap3 - PMHx: 14:05 gastric ulcers; ap3 - PSHx: 14:05 abdominal; gastric; ap3 - Immunization history:: Client reports having NOT received the Covid vaccine. Flu vaccine is not up to date. - Infectious Disease History:: Denies. - Social history:: Smoking status: Patient reports the use of cigarette tobacco products, smokes 1.5 packs per day. ROS: 14:20 Constitutional: Negative for body aches, chills, fever, poor PO intake, cp 14:20 Eyes: Negative for injury, pain, redness, and discharge, cp 14:20 ENT: Negative for drainage from ear(s), ear pain, sore throat, difficulty swallowing, difficulty handling secretions, 14:20 Cardiovascular: Negative for chest pain, edema, palpitations, 14:20 Respiratory: Positive for shortness of breath, Negative for cough, wheezing, 14:20 Abdomen/GI: Positive for abdominal distension, Negative for vomiting, diarrhea, constipation, black/tarry stool, rectal pain, 14:20 Back: Negative for radiated pain, 14:20 Neuro: Negative for altered mental status, dizziness, headache, syncope, weakness, 14:20 All other systems are negative, Exam: 14:25 Constitutional: The patient appears in no acute distress, alert, awake, cp non-diaphoretic, non-toxic, well developed, well nourished, 14:25 Head/Face: Normocephalic, atraumatic. cp 14:25 Eyes: Periorbital structures: appear normal, Conjunctiva: normal, no exudate, no injection, Sclera: no appreciated abnormality, Lids and lashes: appear normal, bilaterally, 14:25 ENT: External ear(s): are unremarkable, Nose: is normal, Mouth: Lips: moist, Oral mucosa: pink and intact, moist, Posterior pharynx: Airway: no evidence of obstruction, patent, 14:25 Chest/axilla: Inspection: normal, 14:25 Cardiovascular: Rate: tachycardic, Rhythm: regular, Edema: is not appreciated, JVD: is not appreciated, 14:25 Respiratory: the patient does not display signs of respiratory distress, Respirations: normal, Breath sounds: are clear throughout, no decreased breath sounds, no stridor, no wheezing, 14:25 Abdomen/GI: Inspection: distension, that is mild, scar(s), mid line upper abdomen to umbilicus, Bowel sounds: active, all quadrants, Palpation: soft, in all quadrants, mild abdominal tenderness, in all quadrants, 14:25 Back: pain, is absent, ROM is normal, 14:25 Skin: cellulitis, is not appreciated, rash a moderate rash is noted, rash can be described as excoriated, papular, and is diffusely located, 14:25 Neuro: Orientation: to person, place \T\ time. Mentation: is normal, Motor: moves all fours, strength is normal, Sensation: is normal, 16:37 ECG was reviewed by the Attending Physician. cp Vital Signs: 14:03 BP 101 / 80; Pulse 123; Resp 20; Temp 97.9; Pulse Ox 94% on R/A; Weight 54.43 kg; ap3 Height 5 ft. 4 in. ; 14:07 BP 111 / 90; Pulse 128; Pulse Ox 96% on R/A; ap3 16:16 BP 108 / 80; Pulse 112; Resp 18; Pulse Ox 95% ; db 17:15 BP 112 / 90; Pulse 106; Resp 18; Pulse Ox 100% ; db 18:00 BP 101 / 77; Pulse 99; Resp 18; Pulse Ox 100% on R/A; db 19:45 BP 124 / 95; Pulse 97; Resp 17; Temp 98; Pulse Ox 99% on R/A; Pain 0/10; rg5 14:03 Body Mass Index 20.60 (54.43 kg, 162.56 cm) ap3 19:45 Pain Scale: Adult rg5 MDM: 16:06 Medical Screening Exam initiated dhaval 17:00 Differential diagnosis: appendicitis, bowel obstruction, cholecystitis, Cholelithiasis, cp diverticulitis, non-specific abd pain, pancreatitis, Pyelonephritis, Ureterolithiasis, urinary tract infection. 20:23 Data reviewed: vital signs, nurses notes, lab test result(s), radiologic studies, CT cp scan, and as a result, I will discharge patient. 20:23 I considered the following discharge prescriptions or medication management in the emergency department Medications were administered in the Emergency Department. See MAR. Counseling: I had a detailed discussion with the patient and/or guardian regarding the historical points, exam findings, and any diagnostic results supporting the discharge/admit diagnosis, lab results, radiology results, to return to the emergency department if symptoms worsen or persist or if there are any questions or concerns that arise at home. 07/31 14:10 Order name: Basic Metabolic Panel; Complete Time: 16:53 07/31 16:54 Interpretation: Normal except: CL 110; ANION GAP 2.7; GLUC 112. 07/31 14:10 Order name: CBC with Diff; Complete Time: 17:54 07/31 16:55 Interpretation: Normal except: HGB 11.9; MCH 26.6; MCHC 31.1; RDW 21.0; ROBERT% 76.6. 07/31 14:10 Order name: LFT's; Complete Time: 16:53 07/31 16:54 Interpretation: Normal except: AST 38; BILIT < 0.2; IBILI, CALC 0.0; ALB 2.6; GLOB 3.8; cp A/G 0.7. 07/31 14:10 Order name: Magnesium; Complete Time: 16:53 07/31 14:10 Order name: NT PRO-BNP; Complete Time: 16:53 07/31 19:50 Interpretation: Reviewed. 07/31 14:10 Order name: PT-INR; Complete Time: 16:12 07/31 14:10 Order name: Troponin HS; Complete Time: 16:53 cp 07/31 16:54 Interpretation: Reviewed. cp 07/31 14:10 Order name: Lipase; Complete Time: 16:53 cp 07/31 14:10 Order name: Urinalysis W/Microscopic; Complete Time: 17:54 cp 07/31 14:10 Order name: Test, Urine; Complete Time: 17:54 cp 07/31 14:10 Order name: SARS RAPID; Complete Time: 16:53 cp 07/31 14:10 Order name: Influenza Screen (a \T\ B); Complete Time: 16:53 cp 07/31 14:10 Order name: Lactate w/ 2H reflex if indic.; Complete Time: 16:53 cp 07/31 16:13 Order name: UDS; Complete Time: 17:54 cp 07/31 17:54 Interpretation: Normal except: BZO POSITIVE; OPI POSITIVE. cp 07/31 16:14 Order name: ETOH Level; Complete Time: 17:54 cp 07/31 16:40 Order name: Test, Serum; Complete Time: 17:54 db 07/31 16:58 Order name: CBC Smear Scan; Complete Time: 17:54 EDMS 07/31 14:10 Order name: XRAY Chest (1 view); Complete Time: 15:25 cp 07/31 16:12 Interpretation: Report review. cp 07/31 16:16 Order name: CT Chest For PE Angio; Complete Time: 19:49 cp 07/31 19:49 Interpretation: Report reviewed. cp 07/31 16:16 Order name: CT Abd/Pelvis - IV Contrast Only; Complete Time: 19:49 cp 07/31 19:50 Interpretation: Report reviewed. cp 07/31 14:10 Order name: Cardiac monitoring; Complete Time: 16:09 cp 07/31 14:10 Order name: EKG - Nurse/Tech; Complete Time: 16:59 cp 07/31 14:10 Order name: IV Saline Lock; Complete Time: 16:09 cp 07/31 14:10 Order name: Labs collected and sent; Complete Time: 16:09 cp 07/31 14:10 Order name: O2 Per Protocol; Complete Time: 16:09 cp 07/31 14:10 Order name: O2 Sat Monitoring; Complete Time: 16:09 cp EC:37 Rate is 111 beats/min. Rhythm is regular. [place] interval is normal. QRS interval is cp normal. QT interval is normal. T waves are Inverted in lead aVR. Interpreted by me. Reviewed by me. Administered Medications: 15:26 CANCELLED (Physician Discretion): ns 0.9% 500 ml 500 ml IV at 1 bolus once; to be given cp as a bolus over 30 minutes 15:55 Drug: NS 0.9% IV 1000 ml IV at 1000 ml once; to be given as a bolus over 60 minutes db Route: IV; Rate: 1000 ml; Site: left forearm; 20:29 Follow up: IV Status: Completed infusion; IV Intake: 1000ml rg5 16:00 Drug: Levalbuterol Inhalation 1.25 mg Inhalation once Route: Inhalation; db 17:35 Drug: morphine IVP or IV 2 mg IVP once over 4 mins Route: IVP; Infused Over: 4 mins; db Site: right wrist; 19:05 Follow up: Response: No adverse reaction; Temperature is increased rg5 Disposition Summary: 07/31/24 20:24 Discharge Ordered Notes: Location: Home cp Problem: new cp Symptoms: have improved cp Condition: Stable cp Diagnosis - Pneumonia, unspecified organism cp - Abdominal distension (gaseous) cp Followup: cp - With: Pedro Uriostegui MD - When: 1 week - Reason: abdominal distension Followup: cp - With: Private Physician - When: 2 - 3 days - Reason: pneumonia Discharge Instructions: - Discharge Summary Sheet cp - Abdominal Pain, Adult cp - Community-Acquired Pneumonia, Adult cp - Abdominal Bloating cp Forms: - Medication Reconciliation Form cp - Antibiotic Education cp - Prescription Opioid Use cp - Patient Portal Instructions cp - Leadership Thank You Letter cp Prescriptions: - dicyclomine 20 mg Oral tablet - take 1 tablet ORAL route 4 times per day; 30 tablet; Refills: 0, Product cp Selection Permitted - levofloxacin 500 mg Oral tablet - take 1 tablet ORAL route once daily for 8-10 days; 9 tablet; Refills: 0, cp Product Selection Permitted Signatures: Dispatcher [employer] EDMarlon Pearl MD MD cha Page, Corey, PA PA cp Gloria Thao RN RN ap3 Olga Addison, RN RN db Tru Ryan, RN RN rg5 Corrections: (The following items were deleted from the chart) 14:11 14:11 Chest Single View+RAD.RAD.BRZ ordered. EDMS EDMS 14:11 14:11 LACTATE+C.LAB.BRZ ordered. EDMS EDMS 15:26 15:26 NS 0.9% IV 500 ml 500 ml IV at 1 bolus once; to be given as a bolus over 30 cp minutes ordered. cp
[2024-08-01 01:46] VITALS: BP 124/95; TEMP 98; O2SAT 99
--- NOTE | 2024-08-04 13:04 | EKG ---
Test Date: 2024-07-31 Test Time: 16:32:44 Rn Bsn: [facility] MEASUREMENT RESULTS: Intervals: Rate: 111 VT: 126 QRSD: 78 QT: 322 QTc: 437 [place]: P: 55 VT: 126 QRS: 19 T: 27 INTERPRETIVE STATEMENTS: Sinus tachycardia Possible Left atrial enlargement Borderline ECG Compared to ECG 05/20/2024 18:57:22 Right ventricular hypertrophy no longer present Electronically Signed On 08-04-24 12:53:14 CDT by Benji Zuleta
== END 2024-07-31 20:51 | disposition home or self-care (01) ==
LOC: ER 13:39
DX: J18.9 Pneumonia, unspecified organism (principal); R14.0 Abdominal distension (gaseous); Z11.52 Encounter for screening for COVID-19; Z28.310 Unvaccinated for COVID-19; F17.210 Nicotine dependence, cigarettes, uncomplicated
CPT/HCPCS: 96361; 93005; 85025; 81001; 80048; 36415; 83735; 84703; 81025; 85610; 80076; 83605; 84484; 83690; 83880; 80307; 87804 ×2; 71275; 74177; 71045; 96374; 99285; 82077; 87811; Q9967; J7614; J2270; J7030

== ENCOUNTER 2024-09-04 18:44 | Inpatient (IN) | payer OTHER ==
[2024-09-04] MEDS ORDERED: FUROSEMIDE 20 MG/ 2ML VIAL ONE (20:02)
[2024-09-04 20:07] LABS: Absolute Basophils 0.1 K/uL (0-0.5); Absolute Eosinophils 0.2 K/uL (0-0.5); Absolute Lymphocytes (CBC) 1.2 K/uL (0.7-4.9); Absolute Monocytes 0.4 K/uL (0.1-1.3); Absolute Neutrophil 11.5 K/uL (1.8-8.0); Basophils % 0.9 % (0-1.3); Eosinophils % 1.7 % (0-4.4); Hematocrit 34.2 % (36.0-45.0); Hemoglobin 10.8 g/dL (12.0-15.0); Lymphocytes % 9.1 % (15.3-44.8); MCH 26.5 pg (27.0-35.0); MCHC 31.5 g/dL (32.0-36.0); MCV 83.9 fL (80-100); MPV 7.3 fL (7.6-11.3); Monocytes % 3.1 % (3.3-12.3); Neutrophils % 85.2 % (41.7-73.7); Platelets 330 thou/uL (152-406); RBC Red Blood Cell Count 4.07 M/uL (3.86-4.86); Red Cell Distribution Width 19.1 % (12.1-15.2)
[2024-09-04 20:14] LABS: PT Prothrombin Time 13.6 SECONDS (9.4-12.5); PTT, Activated Partial Thromb 38.3 SECONDS (24.3-36.9); Protime INR 1.22
[2024-09-04 20:27] LABS: Albumin 2.7 g/dL (3.4-5.0); Albumin/Globulin Ratio 0.8 (1.1-1.8); Anion Gap -2.6 mEq/L (5.0-15.0); Bilirubin Total 0.4 mg/dL (0.2-1.0); Globulin 3.5 g/dL (2.3-3.5); Potassium 3.4 mEq/L (3.5-5.1); Protein, Total 6.2 g/dL (6.4-8.2); Troponin High Sensitivity 5.5 pg/mL (<58.9)
[2024-09-04 20:33] LABS: SARS-CoV-2 Antigen CONTROL BLUE LINE VIS/BG OK; SARS-CoV-2 Antigen Rapid Res Negative (Negative)
[2024-09-04 20:51] LABS: Specific Gravity 1.022 (1.005-1.030); Sqamous Epithelial <5 /HPF (None Seen); Urine Bacteria None Seen /HPF (<20); Urine Bilirubin NEGATIVE (Negative); Urine Blood Negative (Negative); Urine Clarity Clear (Clear); Urine Color Light-Yellow (Yellow); Urine Culture Reflex Order NOT NEEDED; Urine Glucose NEGATIVE (Negative); Urine Ketones 1+ (Negative); Urine Microscopic Reflex YN ORDER UMIC; Urine Mucus Slight /HPF (None Seen); Urine Nitrite NEGATIVE (Negative); Urine Protein NEGATIVE (Negative); Urine RBC <5 /HPF (None Seen); Urine Urobilinogen Normal (Normal); Urine WBC <5 /HPF (<5)
[2024-09-04 21:01] LABS: Barbiturates NEGATIVE (NEGATIVE); Benzodiazepines POSITIVE (NEGATIVE); Cocaine NEGATIVE (NEGATIVE); METHAMPHETAM NEGATIVE (NEGATIVE); Methadone NEGATIVE (NEGATIVE); Opiates POSITIVE (NEGATIVE); Phencyclidine NEGATIVE (NEGATIVE); THC Cannibis NEGATIVE (NEGATIVE)
[2024-09-04] MEDS ORDERED: PIPERACIL/TAZO 3.375 GM VIAL IV ONE (21:29)
[2024-09-04] MEDS ORDERED: NA CHLORIDE 0.9% 100 ML ONE (21:29)
[2024-09-04 22:04] LABS: Anisocytosis SLIGHT; Blood Morphology Comment NOTED (NOT SEEN); Platelet Estimate ADEQ; Polychromasia SLIGHT; White Blood Cell Scan OK (OK)
--- NOTE | 2024-09-04 22:31 | RAD REPORT ---
Procedure: Chest Single View HISTORY: Shortness of breath COMPARISON: July 2024 FINDINGS: Moderate to marked bilateral pulmonary opacities. No significant pleural effusion noted. The heart is mildly to moderately enlarged IMPRESSION: Moderate to marked bilateral pulmonary opacities which have worsened since the prior exam. This may r epresent pneumonia, pneumonitis or edema
[2024-09-04 22:36] LABS: Specific Gravity 1.022 (1.005-1.030)
[2024-09-04 22:53] LABS: Arterial Blood Carboxyhemoglob 4.2 % (0-1.5); Blood Gas Oxyhemoglobin 82.1 % (94-97)
[2024-09-04 22:54] LABS: Blood Gas THB 11.2 g/dl (12-18)
--- NOTE | 2024-09-05 00:22 | ER ---
Nurse's Notes [facility] Name: Ceci Ward Age: 43 yrs Sex: Female : 1980 Arrival Date: 09/04/2024 Time: 18:44 Bed 14 Private MD: Diagnosis: Pneumonia in diseases classified elsewhere;Hypoxemia;Altered mental status, unspecified;Sepsis, unspecified organism Presentation: 09/04 19:14 Chief complaint: Patient states: I have been short of breath since yesterday and it gas jb4 gotten worse. Coronavirus screen: At this time, the client does not indicate any symptoms associated with coronavirus-19. Ebola Screen: No symptoms or risks identified at this time. Initial Sepsis Screen: Does the patient meet any 2 criteria? RR > 20 per min. HR > 90 bpm. Yes Does the patient have a suspected source of infection? No. Patient's initial sepsis screen is negative. If YES to both, name of provider notified: Marlon EDEN Risk Assessment: Do you want to hurt yourself or someone else? Patient reports no desire to harm self or others. Onset of symptoms was September 04, 2024. Transition of care: patient was not received from another setting of care. 19:14 Method Of Arrival: Wheelchair jb4 19:14 Acuity: JES 2 jb4 Triage Assessment: 19:16 General: Appears distressed, uncomfortable, ill, Behavior is cooperative, flat. Pain:. jb4 Neuro: Level of Consciousness is obeys commands, lethargic, Oriented to person, place, time, situation. Respiratory: Reports shortness of breath at rest on exertion cough that is Airway is patent Respiratory effort is labored, using tripod position, Respiratory pattern is tachypnea Onset: The symptoms/episode began/occurred yesterday, the patient has severe shortness of breath. 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 - Infectious Disease History:: Denies. - Social history:: Smoking status: Patient reports the use of cigarette tobacco products, smokes 2.5 packs per day. Screenin:15 [facility] ED Fall Risk Assessment (Adult) History of falling in the last 3 months, kj2 including since admission No falls in past 3 months (0 pts) Confusion or Disorientation Yes (5 pts) Intoxicated or Sedated No (0 pts) Impaired Gait Yes (1 pt) Mobility Assist Device Used Yes (1 pt) Altered Elimination Yes (1 pt) Score/Fall Risk Level 0 - 2 = Low Risk Oriented to surroundings, Hourly rounding (assess needs \T\ fall precautionary measures) done. Abuse screen: Denies threats or abuse. Denies injuries from another. Nutritional screening: No deficits noted. Tuberculosis screening: No symptoms or risk factors identified. Assessment: 20:13 Reassessment: No changes from previously documented assessment. Patient and/or family kj2 updated on plan of care and expected duration. Pain level reassessed. Patient is alert, oriented x 3, equal unlabored respirations, skin warm/dry/pink. 20:15 Respiratory: Airway is patent Breath sounds with rhonchi bilaterally. kj2 21:17 Reassessment: Patient appears in no apparent distress at this time. Patient and/or kj2 family updated on plan of care and expected duration. Pain level reassessed. Patient is alert, oriented x 3, equal unlabored respirations, skin warm/dry/pink. 09/05 00:13 Reassessment: Patient appears in no apparent distress at this time. Patient and/or kj2 family updated on plan of care and expected duration. Pain level reassessed. Patient is alert, oriented x 3, equal unlabored respirations, skin warm/dry/pink. 00:35 Reassessment: Patient appears in no apparent distress at this time. Patient and/or kj2 family updated on plan of care and expected duration. Pain level reassessed. Patient is alert, oriented x 3, equal unlabored respirations, skin warm/dry/pink. 00:40 Cardiovascular: Rhythm is. kj2 01:26 Reassessment: RN called report, no answer. kj2 02:25 Reassessment: Patient appears in no apparent distress at this time. Patient and/or kj2 family updated on plan of care and expected duration. Pain level reassessed. Patient is alert, oriented x 3, equal unlabored respirations, skin warm/dry/pink. Vital Signs: 09/04 19:14 BP 111 / 62; Pulse 133; Resp 22; Temp 98(O); Pulse Ox 87% on R/A; Weight 55.79 kg (R); jb4 Height 5 ft. 4 in. (R); Pain 8/10; 20:14 BP 102 / 70; Pulse 118; Resp 16; Pulse Ox 95% on 3 lpm NC; kj2 21:17 BP 117 / 85; Pulse 121; Resp 18; Pulse Ox 96% on 3 lpm NC; kj2 09/05 00:17 BP 104 / 60; Pulse 110; Resp 14; Temp 98.4; Pulse Ox 93% on 3 lpm NC; af3 02:05 BP 110 / 64; Pulse 108; Resp 18; Temp 98; Pulse Ox 97% on 3 lpm NC; kj2 09/04 19:14 Body Mass Index 21.11 (55.79 kg, 162.56 cm) jb4 09/04 19:14 Pain Scale: Adult 4 09/04 19:14 Placed on 2L NC, provider notified. jb4 ED Course: 18:49 Patient arrived in ED. mg5 18:53 Marlon Choe PA is PHCP. cp 18:53 Karthik Soto MD is Attending Physician. cp 19:16 Triage completed. jb4 19:20 Patient has correct armband on for positive identification. Bed in low position. Call kj2 light in reach. Side rails up X 1. Provided Education on: call light. 19:29 Carla Vargas, RN is Primary Nurse. kj2 19:56 Blood Culture Adult (2) Sent. af3 19:56 CBC with Diff Sent. af3 19:56 CMP Sent. af3 19:56 Protime (+inr) Sent. af3 19:56 Lactate w/ 2H reflex if indic. Sent. af3 19:56 Ptt, Activated Sent. af3 19:56 BNP Sent. af3 19:56 Troponin High Sensitivity Sent. af3 19:56 Inserted saline lock: 22 gauge in left wrist, using aseptic technique. Blood collected. af3 Flushed with 10 mL NS. 20:13 Influenza Screen (a \T\ B) Sent. af3 20:13 SARS RAPID Sent. af3 20:13 BNP Sent. af3 20:13 Troponin High Sensitivity Sent. af3 20:15 Arm band placed on Patient placed in an exam room, on a stretcher. kj2 20:18 Chest Single View XRAY In Process Unspecified. EDMS 20:48 Test, Urine Sent. af3 20:48 UDS Sent. af3 20:48 EKG done, by sales service technician. af3 23:17 CT Chest, Abdomen, Pelvis - W/Contrast In Process Unspecified. EDMS 09/05 00:21 Prince Bradley MD is Hospitalizing Provider. cp 00:40 No provider procedures requiring assistance completed. kj2 02:08 Patient admitted, IV remains in place. kj2 Administered Medications: 09/04 20:40 Drug: Furosemide IVP 20 mg IVP once; give over 2 minutes Route: IVP; Site: left [facility] antecubital; 21:58 Follow up: Response: No adverse reaction kj2 20:55 Drug: Piperacillin-Tazobactam IVPB 3.375 grams IVPB once over 60 mins; (mix in NS 100 kj2 mL) Route: IVPB; Infused Over: 60 mins; Site: left wrist; 20:55 Follow up: IV Status: Completed infusion; IV Intake: 100ml kj2 09/05 00:36 Drug: NS 0.9% IV 1000 ml IV at 1000 ml once; to be given as a bolus over 60 minutes kj2 Route: IV; Rate: 1000 ml; Site: left wrist; 01:36 Follow up: Response: No adverse reaction kj2 01:40 Follow up: Response: No adverse reaction; IV Status: Completed infusion; IV Intake: kj2 1000ml 00:36 Drug: MethylPrednisoLONE IVP 80 mg IVP once Route: IVP; Site: left hand; kj2 01:40 Follow up: Response: No adverse reaction kj2 00:36 Drug: Levalbuterol Inhalation 1.25 mg Inhalation once Route: Inhalation; kj2 01:40 Follow up: Response: No adverse reaction kj2 Medication: 00:38 VIS not applicable for this client. kj2 Intake: 09/04 20:30 IV: 1000ml; Total: 1000ml. kj2 20:55 IV: 100ml; Total: 1100ml. kj2 09/05 01:40 IV: 1000ml; Total: 2100ml. kj2 Output: 09/04 20:30 Urine: 1100ml (Mathur); Total: 1100ml. kj2 Outcome: 09/05 00:21 Decision to Hospitalize by Provider. cp 02:08 Admitted to Med/surg accompanied by nurse, accompanied by tech, via stretcher, room kj2 401, 02:08 Condition: stable 02:08 Instructed on the need for admit, 02:26 Patient left the ED. kj2 Signatures: Dispatcher [employer] EDMS Marlon Choe PA PA cp Shahriar Martin, RN RN jb4 Bernadette Beverly mg5 Carla Vargas, RUBA RN kj2 Belkis Reeves af3 Corrections: (The following items were deleted from the chart) 03:15 02:00 IV 1000, input 1000, Urine 800, (Mathur), output 800, kj2 kj2
--- NOTE | 2024-09-05 00:22 | EDPHYS ---
Physician Documentation [facility] Name: Ceci Ward Age: 43 yrs Sex: Female : 1980 Arrival Date: 09/04/2024 Time: 18:44 Bed 14 Private MD: ED Physician Karthik oSto HPI: 09/04 19:25 This 43 yrs old Female presents to ER via Wheelchair with complaints of Breathing cp Difficulty. 19:25 The patient has shortness of breath at rest. Onset: The symptoms/episode began/occurred cp 3 day(s) ago. Duration: The symptoms are continuous, and are steadily getting worse. Associated signs and symptoms: Pertinent positives: altered mental status, Pertinent negatives: chest pain, fever, vomiting. Severity of symptoms: in the emergency department the symptoms are unchanged despite home interventions. 19:25 Patient has home oxygen and reported stopped wearing oxygen over past couple days. 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 - Infectious Disease History:: Denies. - Social history:: Smoking status: Patient reports the use of cigarette tobacco products, smokes 2.5 packs per day. ROS: 19:30 Constitutional: Negative for fever, cp 19:30 Eyes: Negative for injury, pain, redness, and discharge, cp 19:30 Cardiovascular: Negative for chest pain, 19:30 Respiratory: Positive for shortness of breath, at rest. 19:30 Abdomen/GI: Positive for abdominal distension, Negative for vomiting, diarrhea, black/tarry stool, rectal bleeding, 19:30 Neuro: Positive for altered mental status, Exam: 19:35 Constitutional: The patient appears in no acute distress, alert, awake, cp non-diaphoretic, well developed, well nourished, uncomfortable, appears ill 19:35 Head/Face: Normocephalic, atraumatic. cp 19:35 Eyes: Periorbital structures: appear normal, Pupils: equal, round, and reactive to light and accomodation, Conjunctiva: normal, no exudate, no injection, Sclera: no appreciated abnormality, Lids and lashes: appear normal, bilaterally, 19:35 ENT: External ear(s): are unremarkable, Nose: is normal, Mouth: Lips: dry, Oral mucosa: dry, Posterior pharynx: Airway: no evidence of obstruction, patent, erythema, that is mild, exudate, is not appreciated, 19:35 Neck: ROM/movement: Meningeal signs: are not present, nuchal rigidity, is not appreciated, 19:35 Chest/axilla: Inspection: normal, 19:35 Cardiovascular: Rate: tachycardic, Rhythm: regular, Edema: ankle edema, that is mild, JVD: is not appreciated, 19:35 Respiratory: mild respiratory distress is noted, Respirations: labored breathing, Breath sounds: decreased breath sounds, that are moderate, stridor, is not appreciated, 19:35 Abdomen/GI: Inspection: distension, that is moderate, Palpation: abdomen is soft and non-tender, in all quadrants, 19:35 Skin: and is diffusely located, 19:35 Neuro: Orientation: to person, situation, Mentation: able to follow commands, confused, Motor: moves all fours, no focal deficits, 20:15 ECG was reviewed by the Attending Physician. cp Vital Signs: 19:14 BP 111 / 62; Pulse 133; Resp 22; Temp 98(O); Pulse Ox 87% on R/A; Weight 55.79 kg (R); jb4 Height 5 ft. 4 in. (R); Pain 8/10; 20:14 BP 102 / 70; Pulse 118; Resp 16; Pulse Ox 95% on 3 lpm NC; kj2 21:17 BP 117 / 85; Pulse 121; Resp 18; Pulse Ox 96% on 3 lpm NC; kj2 09/05 00:17 BP 104 / 60; Pulse 110; Resp 14; Temp 98.4; Pulse Ox 93% on 3 lpm NC; af3 02:05 BP 110 / 64; Pulse 108; Resp 18; Temp 98; Pulse Ox 97% on 3 lpm NC; kj2 09/04 19:14 Body Mass Index 21.11 (55.79 kg, 162.56 cm) 4 09/04 19:14 Pain Scale: Adult jb4 09/04 19:14 Placed on 2L NC, provider notified. jb4 MDM: 19:07 Medical Screening Exam initiated cp 09/05 00:25 Data reviewed: vital signs, nurses notes, lab test result(s), EKG, radiologic studies, cp CT scan, plain films, and as a result, I will admit patient. 00:25 Differential diagnosis: Bronchitis CHF exacerbation, Chronic Obstructive Pulmonary cp Disease pneumonia, Pneumothorax pulmonary edema, Pulmonary Embolism Sepsis. Antibiotic administration: Management of patient was discussed with the following: Hospitalist: DR Bradley will admit. I considered the following discharge prescriptions or medication management in the emergency department Medications were administered in the Emergency Department. See MAR. Independent interpretation of the following test(s) in the Emergency Department EKG: See my EKG interpretation above. Post IV fluid administration reassessment for Sepsis: Client not prescribed the 30 mL/kg IVF due to: Amount of IVF prescribed: 1000 lower extremity edmea, patient appears volume overloaded Heart: Tachycardia noted. Lungs: Diminished air movement noted. Current vital signs reviewed: Yes. Response to treatment: the patient's symptoms have mildly improved after treatment. 09/04 19:20 Order name: Blood Culture Adult (2) 09/04 19:20 Order name: CBC with Diff; Complete Time: 22:21 09/04 20:18 Interpretation: Normal except: WBC 13.40; HGB 10.8; HCT 34.2; MCH 26.5; MCHC 31.5; RDW cp 19.1; MPV 7.3; ROBERT% 85.2; LYM% 9.1; MN% 3.1; NEUT A 11.5. 09/04 19:20 Order name: CMP; Complete Time: 20:43 09/04 20:43 Interpretation: Normal except: K 3.4; CL 123; ANION GAP -2.6; AST 51; CA 7.9; TP 6.2; cp ALB 2.7; A/G 0.8. 09/04 19:20 Order name: Lactate w/ 2H reflex if indic.; Complete Time: 20:43 09/04 19:20 Order name: Protime (+inr); Complete Time: 20:18 09/04 19:20 Order name: Ptt, Activated; Complete Time: 20:18 09/04 19:20 Order name: Urinalysis w/ reflexes; Complete Time: 21:23 09/04 19:20 Order name: Troponin High Sensitivity; Complete Time: 20:43 09/04 19:20 Order name: BNP; Complete Time: 20:43 09/04 19:20 Order name: ABG; Complete Time: 23:52 09/04 19:20 Order name: SARS RAPID; Complete Time: 20:43 09/04 19:20 Order name: Influenza Screen (a \T\ B); Complete Time: 20:43 09/04 19:20 Order name: UDS; Complete Time: 21:23 09/04 21:23 Interpretation: Normal except: BZO POSITIVE; OPI POSITIVE. 09/04 19:20 Order name: Test, Urine; Complete Time: 22:42 09/04 20:30 Order name: Glucose, Ancillary Testing; Complete Time: 20:43 EDNE 09/04 22:05 Order name: CBC Smear Scan; Complete Time: 22:21 EDMS 09/05 00:33 Order name: Magnesium EDMS 09/05 00:33 Order name: NT PRO-BNP EDMS 09/05 00:33 Order name: Phosphorus EDMS 09/05 00:33 Order name: Basic Metabolic Panel EDMS 09/05 00:33 Order name: Basic Metabolic Panel EDMS 09/05 00:33 Order name: Basic Metabolic Panel EDMS 09/05 00:33 Order name: Basic Metabolic Panel EDMS 09/05 00:33 Order name: CBC with Automated Diff EDMS 09/05 00:33 Order name: CBC with Automated Diff EDMS 09/05 00:33 Order name: CBC with Automated Diff EDMS 09/05 00:33 Order name: CBC with Automated Diff EDMS 09/05 00:33 Order name: Lipid Profile EDMS 09/05 00:33 Order name: Lipid Profile EDMS 09/05 00:34 Order name: Procalcitonin EDMS 09/04 19:20 Order name: Chest Single View XRAY; Complete Time: 22:42 09/04 20:44 Order name: CT Chest, Abdomen, Pelvis - W/Contrast; Complete Time: 00:56 09/05 00:57 Interpretation: Report reviewed. 09/04 19:20 Order name: EKG; Complete Time: 19:20 09/04 19:20 Order name: Accucheck; Complete Time: 20:48 cp 09/04 19:20 Order name: Cardiac monitoring; Complete Time: 19:55 cp 09/04 19:20 Order name: EKG - Nurse/Tech; Complete Time: 20:13 cp 09/04 19:20 Order name: IV Saline Lock - Large Bore; Complete Time: 19:55 cp 09/04 19:20 Order name: Labs collected and sent; Complete Time: 19:55 cp 09/04 19:20 Order name: O2 Per Protocol; Complete Time: 19:55 cp 09/04 19:20 Order name: O2 Sat Monitoring; Complete Time: 19:56 cp 09/04 19:20 Order name: Vital Signs; Complete Time: 20:16 09/04 19:20 Order name: Mathur; Complete Time: 20:41 cp EC/22 20:15 Rate is 120 beats/min. Rhythm is regular. AR interval is normal. QRS interval is cp normal. QT interval is normal. T waves are Inverted in lead aVR. Interpreted by me. Reviewed by me. Administered Medications: 20:40 Drug: Furosemide IVP 20 mg IVP once; give over 2 minutes Route: IVP; Site: left 2 antecubital; 21:58 Follow up: Response: No adverse reaction kj2 20:55 Drug: Piperacillin-Tazobactam IVPB 3.375 grams IVPB once over 60 mins; (mix in NS 100 kj2 mL) Route: IVPB; Infused Over: 60 mins; Site: left wrist; 20:55 Follow up: IV Status: Completed infusion; IV Intake: 100ml kj2 09/05 00:36 Drug: NS 0.9% IV 1000 ml IV at 1000 ml once; to be given as a bolus over 60 minutes kj2 Route: IV; Rate: 1000 ml; Site: left wrist; 01:36 Follow up: Response: No adverse reaction kj2 01:40 Follow up: Response: No adverse reaction; IV Status: Completed infusion; IV Intake: kj2 1000ml 00:36 Drug: MethylPrednisoLONE IVP 80 mg IVP once Route: IVP; Site: left hand; kj2 01:40 Follow up: Response: No adverse reaction kj2 00:36 Drug: Levalbuterol Inhalation 1.25 mg Inhalation once Route: Inhalation; kj2 01:40 Follow up: Response: No adverse reaction kj2 Disposition Summary: 09/05/24 00:21 Hospitalization Ordered Notes: Hospitalization Status: Inpatient Admission cp Provider: Prince rosalia Bradley Location: Telemetry/MedSurg (Inpatient) cp Condition: Stable cp Problem: an ongoing problem cp Symptoms: have improved cp Bed/Room Type: Standard cp Room Assignment: 401(09/05/24 01:07) kmf Diagnosis - Pneumonia in diseases classified elsewhere cp - Hypoxemia cp - Altered mental status, unspecified cp - Sepsis, unspecified organism cp Discharge Instructions: - Discharge Summary Sheet kmf - Form - Excuse from Work, School, or Physical Activity kmf Forms: - Medication Reconciliation Form cp - SBAR form cp - Leadership Thank You Letter cp - Work release form kmf Signatures: Dispatcher [employer] EDMS Marlon Choe PA PA cp Shahriar Martin, RN RN jb4 Gina Ceron kmf Carla Vargas RN RN kj2 Corrections: (The following items were deleted from the chart) 09/04 19:21 19:20 BLOOD CULTURE*+BA.LAB.BRZ ordered. EDMS EDMS 19:21 19:20 CBC+H.LAB.BRZ ordered. EDMS EDMS 19:21 19:20 COMPREHENSIVE METABOLIC PANEL+C.LAB.BRZ ordered. EDMS EDMS 19:21 19:20 LACTATE+C.LAB.BRZ ordered. EDMS EDMS 19:21 19:20 PROTIME (+INR)+COAG.LAB.BRZ ordered. EDMS EDMS 19:21 19:20 PTT, ACTIVATED+COAG.LAB.BRZ ordered. EDMS EDMS 19:21 19:20 Urinalysis+U.LAB.BRZ ordered. EDMS EDMS 19:21 19:20 Troponin High Sensitivity+C.LAB.BRZ ordered. EDMS EDMS 19:21 19:20 PROBNP+C.LAB.BRZ ordered. EDMS EDMS 19:21 19:20 SARS-COV-2 Antigen Rapid+I.LAB.BRZ ordered. EDMS EDMS 19:21 19:20 Influenza Screen (A \T\ B)+BA.LAB.BRZ ordered. EDMS EDMS 19:21 19:20 URINE DRUG SCREEN+UC.LAB.BRZ ordered. EDMS EDMS 19: 19:20 Test, Urine+UC.LAB.BRZ ordered. EDMS EDMS 09/05 01:07 00:21 cp kmf
[2024-09-05] MEDS ORDERED: LEVALBUTEROL 1.25 MG/3 ML NEB ONE (00:25)
[2024-09-05] MEDS ORDERED: METHYLPREDNISOLONE 40 MG INJ ONE (00:25)
[2024-09-05] MEDS ORDERED: NA CHLORIDE 0.9% 1,000 ML ONE (00:25)
[2024-09-05] MEDS ORDERED: ONDANSETRON 4 MG/2 ML VIAL IV PRN (00:28)
--- NOTE | 2024-09-05 00:28 | RAD REPORT ---
IPROCEDURE: Chest Abdomen Pelvis W Cont CLINICAL HISTORY: shortness of breath;Abdominal distention TECHNIQUE: Contiguous axial images obtained through the chest , abdomen and pelvis following the uneventful admi nistration of IV contrast. Coronal and sagittal reformatted images provided. This exam was performed according to our departmental dose-optimization program, which includes autom ated exposure control, adjustment of the mA and/or kV according to patient size and/or use of iterative reconstruction technique. COMPARISON: CTA of the chest from July 31. CT of the abdomen and pelvis from July 31 FINDINGS: Lungs: Increasingly confluent multifocal airspace disease throughout the lungs bilaterally with progr ession in the interval since the prior examination. Images are significantly degraded by respiratory motion artifact Pleura: No effusion. No pneumothorax. Heart and pericardium: Mild cardiomegaly. No pericardial effusion. Mediastinum and brad: Nonspecific mediastinal nodes, which may be reactive Lower neck and chest wall: Unremarkable Vessels: Unremarkable Bones: Unremarkable Liver: Unremarkable Gallbladder and biliary system: Status post cholecystectomy. Intra and extrahepatic bile duct dilatat ion similar to the prior examination and likely secondary to the postcholecystectomy state Pancreas: Unremarkable Spleen: Unremarkable Adrenals: Unremarkable Kidneys: No evidence of urolithiasis or obstructive uropathy. Gl : Distended stomach with large amount of retained ingested material which may represent gastropare sis or delayed gastric emptying. Large amount of stool in the colon, consistent with constipation. No obstruction. No appreciable muco steve thickening. Appendix: No findings to suggest acute appendicitis. Urinary bladder: Mathur catheter in the decompressed urinary bladder Reproductive: Unremarkable as visualized Lymph nodes: No pathologically enlarged lymph nodes. Peritoneum: No focal fluid collection. No free air. Vessels: No abdominal aortic aneurysm. Abdominal wall: Unremarkable Bones: Unremarkable IMPRESSION: 1. Increasingly confluent multifocal airspace disease throughout the lungs bilaterally with progres sebastien in the interval since the prior examination. Findings are consistent with multifocal pneumonia. 2. Distended stomach with large amount of retained ingested material which may represent gastropare sis or delayed gastric emptying. 3. Large amount of stool in the colon, consistent with constipation. Electronically signed by: Tarun Jules MD 09/04/2024 11:53 PM WASH WORKER Due to temporary technical issues with the PACS/[employer] reporting system, reports are being phillip d by the in-house radiologist without review as a courtesy to ensure prompt reporting the interpreting radiologist is fully responsible for the content of the report. Transcribed Date/Time: 09/05/2024 12:28 AM
[2024-09-05] MEDS ORDERED: SODIUM CHLORIDE 0.9% 10ML INJ IV PRN (00:53)
--- NOTE | 2024-09-05 00:53 | P.HP ---
Certification for Inpatient Patient admitted to: Inpatient With expected LOS: >2 Midnights Practitioner: I am a practitioner with admitting privileges, knowledge of patient current condition, hospital course, and medical plan of care. Services: Services provided to patient in accordance with Admission requirements found in Title 42 Section 412.3 of the Code of Federal Regulations Patient History Date of Service: 09/05/24 Reason for admission: Acute respiratory failure History of Present Illness: Patient is a 43-year-old female with a past medical history of anxiety disorder, tobacco smoking, hypertension, GERD, gastric ulcers and multiple GI bleeding that eventually required partial gastrectomy and small bowel resection. She presented to the ER complaining of shortness of breath. Patient was found desatting in the ER. During my evaluation, history was limited as she was on a nonrebreather. As per signout, she has a history of COPD and chronic respirato ry failure and she has reportedly ran out of oxygen. CT of the chest and abdomen in the ER shows multifocal pneumonia. Patient received a dose of Zosyn and Lasix in the ER along with nebulizer. Allergies codeine [From Tylenol-Codeine #3] Allergy (Verified 08/10/23 13:10) Rash propoxyphene napsylate [From Darvocet-N 100] Allergy (Verified 03/15/13 14:12) Itching/Hives/Rash Home Medications: ALPRAZolam [Xanax*] 0.5 mg PO TID PRN #30 tab 03/11/23 Albuterol Inhaler [Ventolin Inhaler*] 2 puff IH DAILY PRN 08/05/23 Ensure High Protein 237 ml PO BID #30 can 08/19/23 Ipratropium/Albuterol Sulfate [Iprat-Albut 0.5-3(2.5) mg/3 ml] 3 ml IH QID #120 amp 08/19/23 Nicotine [Nicoderm*] 21 mg TD DAILY #30 patch 08/19/23 Pantoprazole [Protonix Tab*] 40 mg PO BIDAC #60 tab 08/19/23 Gabapentin [Neurontin*] 100 mg PO DAILY 12/30/23 Ondansetron [Zofran (Odt)*] 4 mg PO Q6H PRN 12/30/23 Topiramate 50 mg PO DAILY 12/30/23 Hydrocodone 7.5/APAP 325 [[place] 7.5/325 mg*] 1 tab PO Q4H PRN #20 tab 01/01/24 Iron Polysaccharide Complex [Polysaccharide Iron] 150 mg PO DAILY #30 cap 01/01/24 Mupirocin Calcium [Bactroban] 1 appl TP BID #1 tube 01/01/24 Fluticasone/Umeclidin/Vilanter [Trelegy Ellipta 200-62.5-25] 1 each IH DAILY 30 Days #30 aero 02/29/24 levoFLOXacin [Levaquin] 750 mg PO DAILY 5 Days #5 tab 02/29/24 predniSONE [Deltasone*] 10 mg PO DAILY 15 Days #15 tab 02/29/24 - Past Medical/Surgical History Diabetic: No -: Anxiety disorder -: Nicotine dependence -: Hypertension -: GERD -: Chronic back pain -: Pneumonia -: BTL -: Partial stomach removed -: Colon resection - Family History Father -: Cancer Notes: pelvic cancer Mother -: Cancer Notes: lung cnacer, brain cancer Brother Notes: SIDS - Social History Alcohol use: No CD- Drugs: No Caffeine use: No Physical Examination - Physical Exam General: Moderate distress, Other (Diaphoretic) HEENT: Atraumatic, Normocephalic Respiratory: Diminished, Rhonchi/gurgles Cardiovascular: Normal pulses, Regular rate/rhythm, Normal S1 S2, Edema, Systolic murmur - Studies Laboratory Data (last 24 hrs) 09/04/24 09/04/24 09/04/24 19:49 19:49 19:49 WBC 13.40 H Hgb 10.8 L Hct 34.2 L Plt Count 330 PT 13.6 H INR 1.22 APTT 38.3 H Sodium 141 Potassium 3.4 L BUN 16 Creatinine 0.57 Glucose 94 Total Bilirubin 0.4 AST 51 H ALT 18 Alkaline Phosphatase 101 Microbiology Data (last 24 hrs): 09/04/24 19:58 Nasopharnyx Influenza Type A Antigen Screen - Final 09/04/24 19:58 Nasopharnyx Influenza Type B Antigen Screen - Final Assessment and Plan - Problems (Diagnosis) (1) ARDS (adult respiratory distress syndrome) Current Visit: No Status: Acute (2) Acute respiratory failure Current Visit: No Status: Acute (3) COPD exacerbation Current Visit: No Status: Acute (4) Chronic respiratory failure with hypoxia Current Visit: No Status: Acute (5) Coagulopathy Current Visit: No Status: Acute (6) Community acquired bilateral lower lobe pneumonia Current Visit: No Status: Acute - Plan Assessment This is a 43-year-old female with a past medical history of anxiety disorder, COPD and chronic respiratory failure. She is being admitted for acute on chronic respiratory failure after she ran out of oxygen. CT chest is concerning for multifocal pneumonia. Patient's urine toxicology was positive for benzos and opiates. She is currently on a nonrebreather therapy. Patient received a dose of Zosyn, Solu-Medrol and nebulizer in the ER. Acute on chronic respiratory failure Multifocal pneumonia COPD exacerbation Hypertension Anxiety disorder GERD Plan: Admit inpatient Will continue patient on broad-spectrum antibiotics which will include meropenem, and vancomycin due to her past history of MRSA infection Continue Solu-Medrol and DuoNebs for possible COPD exacerbation Pulmonary medicine has been consulted She has a negative influenza and COVID test Follow rest of respiratory culture DuoNebs as needed ordered Will hold off on Lasix PPI for GI prophylaxis - Advance Directives Does patient have a Living Will: No Does patient have a Durable POA for Healthcare: No
[2024-09-05] MEDS: VANCOMYCIN 1.5 GM in NA CHLORIDE 0.9% 500 ML IVPB ONE (01:15)
[2024-09-05] MEDS: Meropenem 1,000 MG in NA CHLORIDE 0.9% 100 ML IV SCH ×2 (02:44→10:00)
[2024-09-05] MEDS: METHYLPREDNISOLONE 40 MG INJ IV SCH (02:44)
[2024-09-05] MEDS: PANTOPRAZOLE 40 MG INJ IVP SCH (02:44)
[2024-09-05 03:18] VITALS: BMI 22.2
[2024-09-05] MEDS: ALBUTEROL 2.5 MG/3 ML NEB SOL NEB PRN (03:25)
[2024-09-05] MEDS: IPRATROPIUM BROM 0.5MG/2.5ML NEB SCH (03:25)
[2024-09-05] MEDS: AZITHROMYCIN IV 500 MG in NA CHLORIDE 0.9% 250 ML IVPB SCH (03:43)
[2024-09-05] MEDS: VANCOMYCIN 1 GM/VIAL ONE (06:14)
[2024-09-05] MEDS: NA CHLORIDE 0.9% 500 ML ONE (06:15)
--- NOTE | 2024-09-05 10:56 | P.CNS ---
Date of Consult: 09/05/24 Reason for Consult: Diffuse lung injury Chief Complaint: Acute respiratory failure History of Present Illness: Patient is 43 years of age with an extensive past medical history and history of GI bleeding admitted to the emergency room with a 2-day history of worsening dyspnea acute diffuse bilateral infiltrates before that have resolved with steroids the screen has been negative denies any fever or chills today shows diffuse bilateral changes any hemoptysis or chest pain Patient continues to smoke denies any other types of drug abuse Allergies codeine [From Tylenol-Codeine #3] Allergy (Verified 08/10/23 13:10) Rash propoxyphene napsylate [From Darvocet-N 100] Allergy (Verified 03/15/13 14:12) Itching/Hives/Rash Home Medications: ALPRAZolam [Xanax*] 0.5 mg PO TID PRN #30 tab 03/11/23 Albuterol Inhaler [Ventolin Inhaler*] 2 puff IH DAILY PRN 08/05/23 Ensure High Protein 237 ml PO BID #30 can 08/19/23 Ipratropium/Albuterol Sulfate [Iprat-Albut 0.5-3(2.5) mg/3 ml] 3 ml IH QID #120 amp 08/19/23 Nicotine [Nicoderm*] 21 mg TD DAILY #30 patch 08/19/23 Pantoprazole [Protonix Tab*] 40 mg PO BIDAC #60 tab 08/19/23 Gabapentin [Neurontin*] 100 mg PO DAILY 12/30/23 Ondansetron [Zofran (Odt)*] 4 mg PO Q6H PRN 12/30/23 Topiramate 50 mg PO DAILY 12/30/23 Hydrocodone 7.5/APAP 325 [[place] 7.5/325 mg*] 1 tab PO Q4H PRN #20 tab 01/01/24 Iron Polysaccharide Complex [Polysaccharide Iron] 150 mg PO DAILY #30 cap 01/01/24 Mupirocin Calcium [Bactroban] 1 appl TP BID #1 tube 01/01/24 Fluticasone/Umeclidin/Vilanter [Trelegy Ellipta 200-62.5-25] 1 each IH DAILY 30 Days #30 aero 02/29/24 levoFLOXacin [Levaquin] 750 mg PO DAILY 5 Days #5 tab 02/29/24 predniSONE [Deltasone*] 10 mg PO DAILY 15 Days #15 tab 02/29/24 - Past Medical/Surgical History Diabetic: No -: Anxiety disorder -: Nicotine dependence -: Hypertension -: GERD -: Chronic back pain -: Pneumonia -: BTL -: Partial stomach removed -: Colon resection - Family History Father Medical History: Cancer Notes: pelvic cancer Mother Medical History: Cancer Notes: lung cnacer, brain cancer Brother Notes: SIDS - Social History Smoking Status: Current every day smoker Alcohol use: No CD- Drugs: No Caffeine use: No Review of Systems 10-point ROS is otherwise unremarkable General: Weakness Respiratory: Shortness of Breath Physical Examination Temp Pulse Resp BP Pulse Ox 98.1 F 98 H 18 90/50 L 97 09/05/24 08:00 09/05/24 08:00 09/05/24 08:30 09/05/24 08:30 09/05/24 08:00 General: Alert, Oriented x3 Respiratory: Crackles/rales Cardiovascular: No edema, Regular rate/rhythm Gastrointestinal: Normal bowel sounds, Soft and benign, Non-distended Laboratory Data (last 24 hrs) 09/04/24 09/04/24 09/04/24 19:49 19:49 19:49 WBC 13.40 H Hgb 10.8 L Hct 34.2 L Plt Count 330 PT 13.6 H INR 1.22 APTT 38.3 H Sodium 141 Potassium 3.4 L BUN 16 Creatinine 0.57 Glucose 94 Total Bilirubin 0.4 AST 51 H ALT 18 Alkaline Phosphatase 101 - Problems (1) ARDS (adult respiratory distress syndrome) Current Visit: No Status: Acute Plan: Patient has diffuse bilateral vacation acute lung injury etiology unknown talk screen is negative apart from the narcotics that she takes regularly and benzodiazepine were ordered HIV screen again with steroids changed to IV levofloxacin meropenem vancomycin doubt bacterial infection isolation not necessary serology for COVID is negative new with pantoprazole p.o. and may need a bronchoscopy rheumatological autoimmune workup was also been ordered monitor serial blood counts and chest x-ray
[2024-09-05] MEDS: ACETAMINOPHEN 500 MG TAB PO PRN (11:34)
[2024-09-05] MEDS: Levofloxacin500mg IV 500 MG/100 ML BAG IV SCH (11:39)
--- NOTE | 2024-09-05 11:55 | P.PN ---
Date of Service: 09/05/24 Brief internal medicine note Patient was seen and evaluated this morning This is a 43 years old female patient with a complex medical problem including ex-smoker, COPD with pulmonary fibrosis on home oxygen, bleeding gastric ulcer status post partial r gastrectomy and small bowel resection who presented to emergency room for worsening dyspnea after her oxygen tank ran out of oxygen and found to have extensive bilateral pulmonary infiltration on CT scan and admitted for multifocal pneumonia #1 acute on chronic hypoxic respiratory failure #2 extensive multifocal pneumonia in underlying pulmonary fibrosis and COPD #3 suspected drug abuse Positive UDS for opioid and benzodiazepine Patient seems to be comfortable, no acute respite distress except productive cough, I am concerned about atypical pathogen such as fungus or Mycobacterium , will continue broad-spectrum antibiotics IV vancomycin, meropenem, azithromycin. I spoke to pulmonology information technology consultant, who is familiar with the patient, I will defer him for the antibiotic management to him. Patient tested negative for COVID-19, influenza AMB, RSV test pending, nasal MRSA screen is unavailable at the facility, will follow-up on sputum culture result.
[2024-09-05] MEDS ORDERED: VANCOMYCIN 1 GM in NA CHLORIDE 0.9% 250 ML IVPB SCH ×2 (14:00→16:00)
[2024-09-05] MEDS: HYDROCODONE/APAP 7.5/325 MG TAB PO PRN (16:21)
[2024-09-05] MEDS: NICOTINE 21 MG/PAT TD SCH (18:21)
[2024-09-05] MEDS: GABAPENTIN 100 MG CAP PO SCH (20:11)
[2024-09-06 01:11] LABS: Rheumatoid Factor NEG (NEG)
[2024-09-06 06:36] LABS: Absolute Lymphocytes (CBC) 0.5 K/uL (0.7-4.9); Absolute Monocytes 0.5 K/uL (0.1-1.3); Absolute Neutrophil 11.2 K/uL (1.8-8.0); Basophils % 0.1 % (0-1.3); Hematocrit 32.5 % (36.0-45.0); Hemoglobin 10.2 g/dL (12.0-15.0); Lymphocytes % 4.1 % (15.3-44.8); MCH 26.5 pg (27.0-35.0); MCHC 31.5 g/dL (32.0-36.0); MCV 84.1 fL (80-100); MPV 7.8 fL (7.6-11.3); Monocytes % 4.3 % (3.3-12.3); Neutrophils % 91.5 % (41.7-73.7); Platelets 338 thou/uL (152-406); RBC Red Blood Cell Count 3.86 M/uL (3.86-4.86); Red Cell Distribution Width 19.7 % (12.1-15.2)
[2024-09-06 06:49] LABS: Anion Gap 8.8 mEq/L (5.0-15.0); Potassium 3.8 mEq/L (3.5-5.1)
--- NOTE | 2024-09-06 07:22 | RAD REPORT ---
EXAMINATION: ONE VIEW CHEST XR CLINICAL INDICATION: Pneumonia TECHNIQUE: Frontal chest projection is submitted. Examination is limited by patient positioning and t echnique. COMPARISON: 09/04/2024 FINDINGS: Moderate bilateral pulmonary opacities are noted, slightly progressive since the comparison study. Th e heart is upper limit of normal in size. No displaced fractures identified. IMPRESSION: Fractional worsening in lung aeration seen since comparison study.
[2024-09-06] MEDS: PANTOPRAZOLE 40MG TABLET PO SCH (07:38)
--- NOTE | 2024-09-06 09:23 | P.PN ---
Subjective Date of Service: 09/06/24 Chief Complaint: Acute respiratory failure Subjective: Improving (Patient is improving cough chest pain ambulating) Review of Systems General: Weakness Respiratory: Shortness of Breath Physical Examination - Vital Signs Temperature: 97.3 F Blood Pressure: 116/75 Pulse: 95 Respirations: 16 Pulse Ox (%): 90 - Physical Exam General: Alert, Oriented x3 Respiratory: Crackles/rales Cardiovascular: No edema, Regular rate/rhythm Assessment And Plan - Current Problems (Diagnosis) (1) ARDS (adult respiratory distress syndrome) Current Visit: No Status: Acute Plan: Patient admitted with acute lung injury etiology unknown screen is negative she denies vaping chest x-ray no change changed to p.o. levofloxacin continue with IV Solu-Medrol DC Mathur catheter labs chemistries reviewed white count declining otherwise stable for unable to determine etiology rheumatoid factor is negative ordered an echocardiogram start on low-dose of IV Lasix
[2024-09-06] MEDS: POTASSIUM CL SA 10 MEQ TAB PO SCH (10:07)
[2024-09-06] MEDS: FUROSEMIDE 20 MG/ 2ML VIAL IV SCH (10:07)
[2024-09-06] MEDS: HYDROCODONE/APAP 10/325 TAB PO PRN (10:14)
--- NOTE | 2024-09-06 13:29 | P.PN ---
Subjective Date of Service: 09/06/24 Chief Complaint: Acute respiratory failure Subjective: No new changes Patient states that she seems to be a little better after IV steroid, denied any shortness of breath at rest, no hemoptysis, no fever or chills. Review of Systems Other: Consitutional; fever(-), chills (-), rigor(-), night sweat(-), unintentional weight loss(-) HEENT; epistaxis (-), otorrhea (-), otalgia (-) Respiratory; shortness of breath (+), wheezing (-), cough (+), sputum (+), pleuritic chest pain (-) Cardiovascular; chest pain (-), peripheral edema (-), paroxysmal nocturnal dyspnea (-), orthopnea (-) Gastrointestinal; nausea (-), vomiting (-), abdominal pain (-), diarrhea (-), constipation (-), melena (-), hematochezia (-) Urinary; urinary frequency (-), dysuria (-), urgency (-), flank pain (-), gross hematuria (-) Skin; rash (-), pruritus (-) BODY DIE MAKER; headache (-), paresthesia (-), numbness (-), paralysis (-), tremor (-), ataxia (-), dysphagia (-), dysarthria (-), diplopia (-) Physical Examination - Vital Signs Temperature: 97.3 F Blood Pressure: 116/75 Pulse: 90 Respirations: 16 Pulse Ox (%): 901 - Physical Exam Other Physical/Emotional Findings: - Physical Exam. General: Chronically ill looking emaciated, in no apparent distress,. HEENT: Normocephalic, atraumatic,. Neck: Supple, without JVD or goiter or thyroid mass. Respiratory: Coarse breath sound bilaterally with bronchial breath sound, crackle but no wheezing. Cardiovascular: Regular rate and rhythm, S1, S2 normal, no murmur no gallop. Gastrointestinal: Normal bowel sounds, nondistended, nontender, No ascites, , No masses, no hepatosplenomegaly. Musculoskeletal: No clubbing, No peripheral edema. Integumentary: No rashes. Lymphatics: No axilla or cervical lymphadenopathy. Neurology; alert awake oriented x3, no focal neurologic deficit Assessment And Plan - Plan This is a 43 years old female patient with a complex medical problem including ex-smoker, COPD with pulmonary fibrosis on home oxygen, bleeding gastric ulcer status post partial r gastrectomy and small bowel resection who presented to emergency room for worsening dyspnea after her oxygen tank ran out of oxygen and found to have extensive bilateral pulmonary infiltration on CT scan and admitted for multifocal pneumonia #1 acute on chronic hypoxic respiratory failure #2 extensive multifocal pneumonia in underlying pulmonary fibrosis and COPD Patient tested negative for COVID-19, influenza A and B, RSV, nasal MRSA screen is unavailable at the facility, sputum culture pending #3 chronic pain syndrome on chronic opioid use and benzodiazepine #4 likely anemia of chronic disease Patient seems to be comfortable, no acute respite distress except productive cough, no sign of sepsis, I am concerned about atypical pathogen such as fungus or Mycobacterium , pulmonology on board, antibiotics downgraded to levofloxacin, methylprednisolone started, HIV test and autoimmune antibody ordered result pending, considering bronchoscopy, which I agree with
[2024-09-06] MEDS: ALPRAZOLAM 1 MG TABLET PO PRN (20:11)
--- NOTE | 2024-09-07 07:18 | RAD REPORT ---
Procedure: Chest Single View HISTORY: Chest pain COMPARISON: September 06, 2024 FINDINGS: Minimal improvement in left and no significant change in right pulmonary opacities. Heart is mildly enlarged. No significant pleural effusion noted. IMPRESSION: Minimal improvement in left and no significant change in right pulmonary opacities which are moderate to marked in severity. This probably represents pneumonia
[2024-09-07 07:34] LABS: Absolute Lymphocytes (CBC) 0.5 K/uL (0.7-4.9); Absolute Monocytes 0.3 K/uL (0.1-1.3); Absolute Neutrophil 9.2 K/uL (1.8-8.0); Basophils % 0.4 % (0-1.3); Hematocrit 34.1 % (36.0-45.0); Hemoglobin 10.7 g/dL (12.0-15.0); Lymphocytes % 5.1 % (15.3-44.8); MCH 26.4 pg (27.0-35.0); MCHC 31.5 g/dL (32.0-36.0); MPV 7.5 fL (7.6-11.3); Monocytes % 3.2 % (3.3-12.3); Neutrophils % 91.3 % (41.7-73.7); Nucleated Red Blood Cells % 0.1 % (0-0); Platelets 296 thou/uL (152-406); RBC Red Blood Cell Count 4.06 M/uL (3.86-4.86); Red Cell Distribution Width 19.6 % (12.1-15.2)
[2024-09-07] MEDS: ENOXAPARIN 40 MG/0.4 ML SQ SCH (08:02)
[2024-09-07] MEDS: levoFLOXacin 750 MG TAB PO SCH (08:03)
[2024-09-07] MEDS ORDERED: predniSONE 20 MG TAB PO SCH (09:00)
[2024-09-07] MEDS: SPIRONOLACTONE 25 MG TABLET PO SCH (09:34)
--- NOTE | 2024-09-07 12:02 | EKG ---
Test Date: 2024-09-04 Test Time: 20:09:02 Safe And Vault Mechanic: AF MEASUREMENT RESULTS: Intervals: Rate: 120 NJ: 128 QRSD: 74 QT: 320 QTc: 452 [place]: P: 82 NJ: 128 QRS: 107 T: 52 INTERPRETIVE STATEMENTS: Sinus tachycardia Possible Left atrial enlargement Rightward axis Low voltage QRS Borderline ECG Compared to ECG 07/31/2024 16:32:44 Right-axis deviation now present Low QRS voltage now present Electronically Signed On 09-07-24 12:01:08 MACHINE CASTINGS PLASTERER by Benji Zuleta
[2024-09-07] MEDS ORDERED: IPRATROPIUM BROM 0.5MG/2.5ML NEB PRN (14:50)
[2024-09-07] MEDS ORDERED: ALBUTEROL 2.5 MG/3 ML NEB SOL NEB PRN (15:03)
--- NOTE | 2024-09-07 16:38 | P.PN ---
Subjective Date of Service: 09/07/24 Subjective: No new changes, No C/O voiced, Improving Review of Systems 10-point ROS is otherwise unremarkable Physical Examination - Vital Signs Temperature: 98.1 F Blood Pressure: 124/79 Pulse: 63 Respirations: 16 Pulse Ox (%): 94 - Physical Exam General: Alert, In no apparent distress, Oriented x3 HEENT: Atraumatic, PERRLA, EOMI Neck: Supple, JVD not distended Respiratory: Clear to auscultation bilaterally, Normal air movement Cardiovascular: Regular rate/rhythm, Normal S1 S2 Gastrointestinal: Normal bowel sounds, No tenderness Musculoskeletal: No tenderness Integumentary: No rashes Neurological: Normal speech, Normal tone, Normal affect Lymphatics: No axilla or inguinal lymphadenopathy Other Physical/Emotional Findings: - Physical Exam. General: Chronically ill looking emaciated, in no apparent distress,. HEENT: Normocephalic, atraumatic,. Neck: Supple, without JVD or goiter or thyroid mass. Respiratory: Coarse breath sound bilaterally with bronchial breath sound, crackle but no wheezing. Cardiovascular: Regular rate and rhythm, S1, S2 normal, no murmur no gallop. Gastrointestinal: Normal bowel sounds, nondistended, nontender, No ascites, , No masses, no hepatosplenomegaly. Musculoskeletal: No clubbing, No peripheral edema. Integumentary: No rashes. Lymphatics: No axilla or cervical lymphadenopathy. Neurology; alert awake oriented x3, no focal neurologic deficit - Studies Medications List Reviewed: Yes Assessment & Plan - Problems (Diagnosis) (1) Acute respiratory failure Current Visit: No Status: Acute (2) History of Yesy-en-Y gastric bypass Current Visit: No Status: Acute (3) History of vagotomy Current Visit: No Status: Acute (4) Pulmonary fibrosis Current Visit: No Status: Acute (5) Severe protein-calorie malnutrition Current Visit: No Status: Acute - Advance Directives Does patient have a Living Will: No Does patient have a Durable POA for Healthcare: No
--- NOTE | 2024-09-07 16:42 | P.PN ---
Subjective Date of Service: 09/07/24 Chief Complaint: Acute respiratory failure Subjective: Improving (Doing better no complaints) Review of Systems Unremarkable General: Weakness Respiratory: Shortness of Breath Physical Examination - Vital Signs Temperature: 98.1 F Blood Pressure: 124/79 Pulse: 63 Respirations: 16 Pulse Ox (%): 94 - Physical Exam General: Alert, Oriented x3 Neck: Supple Respiratory: Clear to auscultation bilaterally Cardiovascular: No edema, Regular rate/rhythm Other Physical/Emotional Findings: - Physical Exam. General: Chronically ill looking emaciated, in no apparent distress,. HEENT: Normocephalic, atraumatic,. Neck: Supple, without JVD or goiter or thyroid mass. Respiratory: Coarse breath sound bilaterally with bronchial breath sound, crackle but no wheezing. Cardiovascular: Regular rate and rhythm, S1, S2 normal, no murmur no gallop. Gastrointestinal: Normal bowel sounds, nondistended, nontender, No ascites, , No masses, no hepatosplenomegaly. Musculoskeletal: No clubbing, No peripheral edema. Integumentary: No rashes. Lymphatics: No axilla or cervical lymphadenopathy. Neurology; alert awake oriented x3, no focal neurologic deficit Assessment And Plan - Current Problems (Diagnosis) (1) ARDS (adult respiratory distress syndrome) Current Visit: No Status: Acute Plan: Doign better CXRY has improved. Plan for discharge am on pred 20 BID for 1o days and levaquin for 7 /Sprionolactone added/ HIV negative . Pt has HomeO2 Discharge Plan: Home Plan to discharge in: 24 Hours
[2024-09-07] MEDS: predniSONE 20 MG TAB PO SCH (20:46)
[2024-09-07] MEDS: BUDESONIDE 0.5 MG/2 ML NEB NEB SCH (20:59)
[2024-09-08 06:02] LABS: Absolute Eosinophils 0.1 K/uL (0-0.5); Absolute Lymphocytes (CBC) 1.2 K/uL (0.7-4.9); Absolute Monocytes 0.6 K/uL (0.1-1.3); Absolute Neutrophil 5.8 K/uL (1.8-8.0); Basophils % 0.2 % (0-1.3); Eosinophils % 0.7 % (0-4.4); Hematocrit 35.4 % (36.0-45.0); Hemoglobin 11.1 g/dL (12.0-15.0); Lymphocytes % 15.6 % (15.3-44.8); MCH 26.3 pg (27.0-35.0); MCHC 31.4 g/dL (32.0-36.0); MCV 83.7 fL (80-100); MPV 7.6 fL (7.6-11.3); Monocytes % 7.5 % (3.3-12.3); Nucleated Red Blood Cells % 0.1 % (0-0); Platelets 256 thou/uL (152-406); RBC Red Blood Cell Count 4.22 M/uL (3.86-4.86); Red Cell Distribution Width 19.1 % (12.1-15.2)
[2024-09-08 06:20] LABS: Anion Gap 8.3 mEq/L (5.0-15.0); Potassium 3.3 mEq/L (3.5-5.1)
[2024-09-08] MEDS: POTASSIUM CL SA 10 MEQ TAB PO ONE (08:00)
[2024-09-08] MEDS: PANTOPRAZOLE 40MG TABLET PO SCH (08:01)
--- NOTE | 2024-09-08 12:15 | P.PN ---
Subjective Date of Service: 09/08/24 Chief Complaint: Diffuse alveolar damage Subjective: Improving (Is improving doing much better denies any fever chills chest pain) Review of Systems General: Weakness Respiratory: Shortness of Breath Physical Examination - Vital Signs Temperature: 97.7 F Blood Pressure: 110/70 Pulse: 77 Respirations: 16 Pulse Ox (%): 97 - Physical Exam General: Alert, Oriented x3 Respiratory: Clear to auscultation bilaterally Cardiovascular: No edema, Regular rate/rhythm Other Physical/Emotional Findings: - Physical Exam. General: Chronically ill looking emaciated, in no apparent distress,. HEENT: Normocephalic, atraumatic,. Neck: Supple, without JVD or goiter or thyroid mass. Respiratory: Coarse breath sound bilaterally with bronchial breath sound, crackle but no wheezing. Cardiovascular: Regular rate and rhythm, S1, S2 normal, no murmur no gallop. Gastrointestinal: Normal bowel sounds, nondistended, nontender, No ascites, , No masses, no hepatosplenomegaly. Musculoskeletal: No clubbing, No peripheral edema. Integumentary: No rashes. Lymphatics: No axilla or cervical lymphadenopathy. Neurology; alert awake oriented x3, no focal neurologic deficit - Studies Medications List Reviewed: Yes Assessment And Plan - Current Problems (Diagnosis) (1) Diffuse alveolar damage Current Visit: Yes Status: Acute Plan: Patient is 43 years of age admitted with diffuse bilateral pulmonary infiltrates hypoxemia patient is doing much better patient requirements have declined awaiting 2D echo discharged home on prednisone 20 twice daily for a week decrease it to 10 twice a day continue with levofloxacin 750 for a week spironolactone serological tests are pending Discharge Plan: Home
--- NOTE | 2024-09-08 14:36 | ECHO ---
HEIGHT: 5 ft 4 in WEIGHT: 129 lb 12.8 oz DATE OF STUDY: 09/08/[address]: Kyle Walker MD 2-DIMENSIONAL: YES M.MODE: YES DOPPLER: YES COLOR FLOW: YES TDS: NO PORTABLE: YES DEFINITY: NO BUBBLE STUDY: NO DIAGNOSIS: CONGESTIVE HEART FAILURE CARDIAC HISTORY: CATHERIZATION: SURGERY: PROSTHETIC VALVE: PACEMAKER: MEASUREMENTS (cm) DIASTOLIC (NORMALS) SYSTOLIC (NORMALS) IVSd 0.9 (0.6-1.2) LA Diam 2.7 (1.9-4.0) LVEF 50-55% LVIDd 4.8 (3.5-5.7) LVIDs 3.9 (2.0-3.5) %FS 20% LVPWd 0.8 (0.6-1.2) Ao Diam 2.8 (2.0-3.7) 2 DIMENSIONAL ASSESSMENT: RIGHT ATRIUM: NORMAL LEFT ATRIUM: NORMAL RIGHT VENTRICLE: NORMAL LEFT VENTRICLE: NORMAL TRICUSPID VALVE: MILD TRICUSPID REGURGITATION MITRAL VALVE: MILD MITRAL REGURGITATION PULMONIC VALVE: NORMAL AORTIC VALVE: NORMAL PERICARDIAL EFFUSION: NONE AORTIC ROOT: NORMAL LEFT VENTRICULAR WALL MOTION: NORMAL. DOPPLER/COLOR FLOW: NORMAL. COMMENTS: 1. LOW NORMAL LEFT VENTRICULAR SYSTOLIC FUNCTION. LEFT VENTRICULAR EJECTION FRACTION 50-55%. NORMAL WALL MOTION. 2. NORMAL DIASTOLIC FUNCTION. 3. NORMAL FILLING PRESSURE. RIGHT ATRIAL PRESSURE 0-5 mmHg. TECHNOLOGIST: TIMA KEY
[2024-09-08 16:06] VITALS: O2SAT 92
[2024-09-08 16:10] VITALS: BP 123/84; TEMP 98
[2024-09-09 05:11] LABS: Anti-Cardiolipin IgG Antibody <2.0 GPL-U/mL (<20.0); Anti-Cardiolipin IgM Antibody <2.0 MPL-U/mL (<20.0)
[2024-09-09 10:54] LABS: P-ANCA Anti-Myeloperoxidase Ab <1.0 AI (<1.0)
[2024-09-10 12:33] LABS: Anti-Nuclear Antibody Screen Negative (Negative)
== END 2024-09-08 18:25 | disposition home or self-care (01) | DRG 193 ==
LOC: ER 18:44 → ERHOLD 09-05 00:28 → 4TH 09-05 01:43
PROVIDERS: ADMIT Internal Medicine; ATTEND Hospitalist
PROC: 4A033R1 Measurement of Arterial Saturation, Peripheral, Percutaneous Approach (ICD-10-PCS; principal; 2024-09-04)
PROC: 5A09457 Assistance with Respiratory Ventilation, 24-96 Consecutive Hours, Continuous Positive Airway Pressure (ICD-10-PCS; 2024-09-05)
PROC: 0T9B70Z Drainage of Bladder with Drainage Device, Via Natural or Artificial Opening (ICD-10-PCS; 2024-09-06)
DX: J18.9 Pneumonia, unspecified organism (principal); E43 Unspecified severe protein-calorie malnutrition; J80 Acute respiratory distress syndrome; J44.0 Chronic obstructive pulmonary disease with (acute) lower respiratory infection; J44.1 Chronic obstructive pulmonary disease with (acute) exacerbation; D68.9 Coagulation defect, unspecified; I10 Essential (primary) hypertension; F41.9 Anxiety disorder, unspecified; J84.10 Pulmonary fibrosis, unspecified; D63.8 Anemia in other chronic diseases classified elsewhere; G89.4 Chronic pain syndrome; F11.10 Opioid abuse, uncomplicated; F13.10 Sedative, hypnotic or anxiolytic abuse, uncomplicated; K21.9 Gastro-esophageal reflux disease without esophagitis; F17.210 Nicotine dependence, cigarettes, uncomplicated; Z88.5 Allergy status to narcotic agent; Z90.3 Acquired absence of stomach [part of]; Z99.81 Dependence on supplemental oxygen; Z68.22 Body mass index [BMI] 22.0-22.9, adult; Z11.52 Encounter for screening for COVID-19; Z79.52 Long term (current) use of systemic steroids; Z90.49 Acquired absence of other specified parts of digestive tract; Z79.899 Other long term (current) drug therapy
CPT/HCPCS: 36415; 36600; 71045; 71260; 74177; 80048; 80053; 80061; 80307; 81001; 81025; 82805; 82947; 83520; 83605; 83735; 83880; 84100; 84145; 84484; 85025; 85610; 85730; 86021; 86038; 86147; 86430; 87040; 87070; 87205; 87389; 87804; 87807; 87811; 93005; 93306; 94640; 94760; 99285; J1650; J1940; J2185; J2470; J2543; J2919; J7030; J7040; J7050; J7512; J7613; J7614; J7626; J7644; Q9967

== ENCOUNTER 2024-10-06 16:08 | Inpatient (IN) | payer OTHER ==
--- NOTE | 2024-10-06 17:21 | RAD REPORT ---
Procedure: Chest Single View HISTORY: Cough COMPARISON: August 2024 FINDINGS: Moderate bilateral pulmonary opacities. No significant pleural effusion noted. The heart is mildly to moderately enlarged. IMPRESSION: Moderate bilateral pulmonary opacities probably pneumonia
[2024-10-06] MEDS ORDERED: METHYLPREDNISOLONE 125 MG INJ ONE (17:56)
[2024-10-06] MEDS ORDERED: VANCOMYCIN 1 GM/VIAL ONE (17:56)
[2024-10-06] MEDS ORDERED: IPRATROPIUM BROM 0.5MG/2.5ML ONE (17:56)
[2024-10-06] MEDS ORDERED: NA CHLORIDE 0.9% 250 ML ONE (17:56)
[2024-10-06] MEDS ORDERED: ALBUTEROL 2.5 MG/3 ML NEB SOL ONE (17:56)
[2024-10-06 17:57] LABS: Absolute Eosinophils 0.1 K/uL (0-0.5); Absolute Lymphocytes (CBC) 0.7 K/uL (0.7-4.9); Absolute Monocytes 0.5 K/uL (0.1-1.3); Absolute Neutrophil 8.7 K/uL (1.8-8.0); Basophils % 0.5 % (0-1.3); Eosinophils % 0.9 % (0-4.4); Hematocrit 35.6 % (36.0-45.0); Hemoglobin 11.3 g/dL (12.0-15.0); Lymphocytes % 7.4 % (15.3-44.8); MCH 26.5 pg (27.0-35.0); MCHC 31.6 g/dL (32.0-36.0); MCV 83.8 fL (80-100); MPV 7.6 fL (7.6-11.3); Monocytes % 4.6 % (3.3-12.3); Neutrophils % 86.6 % (41.7-73.7); Platelets 248 thou/uL (152-406); RBC Red Blood Cell Count 4.26 M/uL (3.86-4.86); Red Cell Distribution Width 20.4 % (12.1-15.2)
[2024-10-06] MEDS ORDERED: NA CHLORIDE 0.9% 100 ML ONE (17:57)
[2024-10-06] MEDS ORDERED: CEFEPIME 1 GM/VIAL ONE (17:57)
[2024-10-06] MEDS ORDERED: NICOTINE 21 MG/PAT TD ONE (17:57)
[2024-10-06] MEDS ORDERED: NA CHLORIDE 0.9% 2,000 ML ONE (17:57)
[2024-10-06 18:05] LABS: PT Prothrombin Time 16.8 SECONDS (9.4-12.5); PTT, Activated Partial Thromb 35.3 SECONDS (24.3-36.9); Protime INR 1.52
[2024-10-06 18:13] LABS: Albumin 2.2 g/dL (3.4-5.0); Albumin/Globulin Ratio 0.6 (1.1-1.8); Anion Gap 5.6 mEq/L (5.0-15.0); Bilirubin Total 0.4 mg/dL (0.2-1.0); Potassium 3.6 mEq/L (3.5-5.1); Protein, Total 6.2 g/dL (6.4-8.2)
[2024-10-06 19:21] LABS: SARS-CoV-2 Antigen CONTROL BLUE LINE VIS/BG OK; SARS-CoV-2 Antigen Rapid Res Negative (Negative)
[2024-10-06] MEDS ORDERED: FENTANYL CITR 100 MCG/2 ML ONE (20:30)
--- NOTE | 2024-10-06 20:30 | ER ---
Nurse's Notes [facility] [place] Name: Ceci Ward Age: 43 yrs Sex: Female : 1980 Arrival Date: 10/06/2024 Time: 16:08 Bed 5 Private MD: Diagnosis: Pneumonia, unspecified organism;Sepsis, unspecified organism;Acute and chronic respiratory failure with hypoxia Presentation: 10/06 16:19 Chief complaint: Cough, congestion, and malaise x 2-3 days, home O2 readings in the hb 70s. Coronavirus screen: At this time, the client does not indicate any symptoms associated with coronavirus-19. Ebola Screen: No symptoms or risks identified at this time. Initial Sepsis Screen: Does the patient meet any 2 criteria? Yes Does the patient have a suspected source of infection? No. Patient's initial sepsis screen is negative. Risk Assessment: Do you want to hurt yourself or someone else? Patient reports no desire to harm self or others. Onset of symptoms was October 04, 2024. 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 - Infectious Disease History:: Denies. - Social history:: Smoking status: unknown. Screenin:49 [facility] ED Fall Risk Assessment (Adult) History of falling in the last 3 months, al5 including since admission No falls in past 3 months (0 pts) Confusion or Disorientation No (0 pts) Intoxicated or Sedated No (0 pts) Impaired Gait No (0 pts) Mobility Assist Device Used No (0 pt) Altered Elimination No (0 pt) Score/Fall Risk Level 0 - 2 = Low Risk Oriented to surroundings, Maintained a safe environment, Hourly rounding (assess needs \T\ fall precautionary measures) done. Abuse screen: Denies threats or abuse. Denies injuries from another. Nutritional screening: No deficits noted. Tuberculosis screening: No symptoms or risk factors identified. Assessment: 17:50 General: Appears in no apparent distress. ill, Behavior is calm, cooperative. Pain: al5 Denies pain. Neuro: Level of Consciousness is awake, alert, obeys commands, Oriented to person, place, time, situation. Cardiovascular: Capillary refill < 3 seconds Patient's skin is warm and dry. Rhythm is sinus tachycardia. Respiratory: Airway is patent Respiratory effort is even, labored, Respiratory pattern is regular, symmetrical, tachypnea. GI: No signs and/or symptoms were reported involving the gastrointestinal system. Abdomen is round non-distended. : No signs and/or symptoms were reported regarding the genitourinary system. EENT: No signs and/or symptoms were reported regarding the EENT system. Derm: Skin is intact, Skin is pink, warm \T\ dry. normal. Musculoskeletal: No signs and/or symptoms reported regarding the musculoskeletal system. 19:36 Reassessment: Patient appears in no apparent distress at this time. No changes from al5 previously documented assessment. Patient and/or family updated on plan of care and expected duration. Pain level reassessed. Patient is alert, oriented x 3, equal unlabored respirations, skin warm/dry/pink. Respiratory: Breath sounds with crackles bilaterally. 20:47 Reassessment: Patient appears in no apparent distress at this time. No changes from al5 previously documented assessment. Patient and/or family updated on plan of care and expected duration. Pain level reassessed. Patient is alert, oriented x 3, equal unlabored respirations, skin warm/dry/pink. 22:01 Reassessment: Patient appears in no apparent distress at this time. No changes from al5 previously documented assessment. Patient and/or family updated on plan of care and expected duration. Pain level reassessed. Patient is alert, oriented x 3, equal unlabored respirations, skin warm/dry/pink. 23:28 Reassessment: Patient appears in no apparent distress at this time. No changes from al5 previously documented assessment. Patient and/or family updated on plan of care and expected duration. Pain level reassessed. Patient is alert, oriented x 3, equal unlabored respirations, skin warm/dry/pink. 10/07 01:20 Reassessment: Patient appears in no apparent distress at this time. No changes from al5 previously documented assessment. Patient and/or family updated on plan of care and expected duration. Pain level reassessed. Patient is alert, oriented x 3, equal unlabored respirations, skin warm/dry/pink. Vital Signs: 10/06 16:19 BP 151 / 101; Pulse 153; Resp 34; Temp 98.8(TE); Pulse Ox 55% on 5 lpm NC; Weight 56.7 hb kg; Height 5 ft. 4 in. ; Pain 10/10; 16:40 BP 109 / 80; Pulse 146; Resp 29; ec2 16:58 Pulse Ox 92% ; ec2 17:00 BP 112 / 76; Pulse 141; Resp 30; Pulse Ox 94% on 6 lpm NC; al5 17:30 BP 109 / 85; Pulse 144; Resp 32; Pulse Ox 93% on 6 lpm NC; al5 17:43 BP 109 / 85; Pulse Ox 92% ; ec2 18:00 BP 112 / 83; Pulse 143; Resp 31; Pulse Ox 92% on 6 lpm NC; al5 19:00 BP 117 / 84; Pulse 138; Resp 25; Pulse Ox 96% on 6 lpm NC; al5 19:30 BP 110 / 78; Pulse 141; Resp 23; Pulse Ox 94% on 6 lpm NC; al5 20:00 BP 118 / 80; Pulse 134; Resp 30; Pulse Ox 93% on 6 lpm NC; al5 20:30 BP 121 / 77; Pulse 135; Resp 28; Pulse Ox 94% on 6 lpm NC; al5 20:37 BP 121 / 70; Pulse 132; sb4 21:00 BP 109 / 81; Pulse 126; Resp 25; Pulse Ox 94% on 6 lpm NC; al5 21:23 BP 109 / 81; Pulse 128; Resp 22; Pulse Ox 92% ; br2 22:00 BP 124 / 78; Pulse 126; Resp 22; Pulse Ox 95% on 6 lpm NC; al5 22:30 BP 108 / 76; Pulse 119; Resp 23; Pulse Ox 94% on 6 lpm NC; al5 23:00 BP 120 / 90; Pulse 115; Resp 22; Pulse Ox 96% on 6 lpm NC; al5 10/07 00:00 BP 113 / 75; Pulse 116; Resp 23; Pulse Ox 94% on 6 lpm NC; al5 01:00 BP 109 / 82; Pulse 83; Resp 24; Pulse Ox 94% on 6 lpm NC; al5 10/06 16:19 Body Mass Index 21.46 (56.70 kg, 162.56 cm) hb 10/06 16:19 Pain Scale: Adult hb ED Course: 10/06 16:09 Patient arrived in ED. im 16:10 Karthik Soto MD is Attending Physician. ec2 16:22 Triage completed. hb 16:22 Arm band placed on. hb 17:06 Chest Single View XRAY In Process Unspecified. EDMS 17:49 Gloria Salgado, RUBA is Primary Nurse. al5 17:50 Patient has correct armband on for positive identification. Placed in gown. Bed in low al5 position. Side rails up X2. Provided Education on: plan of care. 17:50 No provider procedures requiring assistance completed. Inserted saline lock: 22 gauge al5 in right wrist, using aseptic technique. Blood collected. Flushed with 10 mL NS. 18:08 Amber Nair PA-C is PHCP. sb4 18:52 RSV Sent. al5 18:52 Flu Sent. al5 18:53 SARS RAPID Sent. al5 20:29 Enrique Thompson MD is Hospitalizing Provider. sb4 10/07 01:58 Patient admitted, IV remains in place. al5 Administered Medications: 10/06 16:35 CANCELLED (Physician Discretion): ns 0.9% 1000 ml IV at 1000 ml once; to be given as a ec2 bolus over 60 minutes 18:18 Drug: Cefepime IVPB 1 grams IVPB at 200 ml/hr once over 30 mins; (mix in NS 100 mL) al5 Route: IVPB; Rate: 200 ml/hr; Infused Over: 30 mins; Site: right wrist; 19:14 Follow up: Response: No adverse reaction; IV Status: Completed infusion; IV Intake: al5 100ml 18:19 Drug: DuoNeb Nebulize (3:1) (2.5 mg - 0.5 mg) 3 ml Nebulizer once Route: Nebulizer; al5 19:13 Follow up: Response: No adverse reaction al5 18:19 Drug: MethylPrednisoLONE IVP 125 mg IVP once Route: IVP; Site: right wrist; al5 19:13 Follow up: Response: No adverse reaction al5 18:19 Drug: NS 0.9% IV 2000 ml IV at 1000 ml once; to be given as a bolus over 60 minutes al5 Route: IV; Rate: 1000 ml; Site: right wrist; 23:38 Follow up: Response: No adverse reaction; IV Status: Completed infusion; IV Intake: al5 2000ml 18:19 Drug: Nicotine Transdermal Patch 21 mg/24 hr 1 patches Transdermal once Route: al5 Transdermal; Site: affected area; 19:14 Follow up: Response: No adverse reaction al5 19:14 Drug: vancoMYCIN IVPB 1 grams IVPB once over 2 hrs Route: IVPB; Infused Over: 2 hrs; al5 Site: right wrist; 21:23 Follow up: Response: No adverse reaction; IV Status: Completed infusion; IV Intake: al5 250ml 20:39 Drug: fentaNYL (PF) IVP 25 mcg IVP once Route: IVP; Site: left forearm; jj7 21:22 Follow up: Response: No adverse reaction; Pain is decreased al5 Medication: 17:50 VIS not applicable for this client. al5 Intake: 19:14 IV: 100ml; Total: 100ml. al5 21:23 IV: 250ml; Total: 350ml. al5 23:38 IV: 2000ml; Total: 2350ml. al5 Outcome: 20:29 Decision to Hospitalize by Provider. sb4 10/07 01:58 Admitted to Med/surg accompanied by tech, via wheelchair, room 414, with oxygen, with al5 chart, Condition: stable Instructed on the need for admit, 01:59 Patient left the ED. al5 Signatures: Dispatcher [employer] EDCT Shira Hoffman RN RN hb Johnson, Juwairiyah, RN RN jjAmber Estrada, PA-Segun PA-C sb4 Edyta Meyers Edwin, MD MD ec2 Gloria Salgado RN RN al5 Cathryn Arriola RN RN br2 Corrections: (The following items were deleted from the chart) 10/06 16: 16:19 Acuity: JES 1 hb hb 16: 16:19 Acuity: JES 2 hb hb
--- NOTE | 2024-10-06 20:30 | EDPHYS ---
Physician Documentation [facility] Name: Ceci Ward Age: 43 yrs Sex: Female : 1980 Arrival Date: 10/06/2024 Time: 16:08 Bed 5 Private MD: ED Physician Karthik Soto HPI: 10/06 16:34 This 43 yrs old Female presents to ER via Wheelchair with complaints of ec2 Shortness Of Breath, low O2. 16:34 Patient arrives today for progressive shortness of breath. History of underlying lung ec2 disease, frequent admissions for pneumonia, has been having progressive shortness of breath and cough ongoing for the past several days.. 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 - Infectious Disease History:: Denies. - Social history:: Smoking status: unknown. ROS: 16:34 Constitutional: as per hpi ec2 Exam: 16:35 Constitutional: GEN: NAD Head: atraumatic Eyes: EOMI Ears: External ears are ec2 normal. CV: Tachycardia LUNGS: Tachypnea, scattered wheezes in all lung mortensen. ABD: non-distended SKIN: no evidence of rashes MSK: no evidence of trauma Vital Signs: 16:19 BP 151 / 101; Pulse 153; Resp 34; Temp 98.8(TE); Pulse Ox 55% on 5 lpm NC; Weight 56.7 hb kg; Height 5 ft. 4 in. ; Pain 10/10; 16:40 BP 109 / 80; Pulse 146; Resp 29; ec2 16:58 Pulse Ox 92% ; ec2 17:00 BP 112 / 76; Pulse 141; Resp 30; Pulse Ox 94% on 6 lpm NC; al5 17:30 BP 109 / 85; Pulse 144; Resp 32; Pulse Ox 93% on 6 lpm NC; al5 17:43 BP 109 / 85; Pulse Ox 92% ; ec2 18:00 BP 112 / 83; Pulse 143; Resp 31; Pulse Ox 92% on 6 lpm NC; al5 19:00 BP 117 / 84; Pulse 138; Resp 25; Pulse Ox 96% on 6 lpm NC; al5 19:30 BP 110 / 78; Pulse 141; Resp 23; Pulse Ox 94% on 6 lpm NC; al5 20:00 BP 118 / 80; Pulse 134; Resp 30; Pulse Ox 93% on 6 lpm NC; al5 20:30 BP 121 / 77; Pulse 135; Resp 28; Pulse Ox 94% on 6 lpm NC; al5 20:37 BP 121 / 70; Pulse 132; sb4 21:00 BP 109 / 81; Pulse 126; Resp 25; Pulse Ox 94% on 6 lpm NC; al5 21:23 BP 109 / 81; Pulse 128; Resp 22; Pulse Ox 92% ; br2 22:00 BP 124 / 78; Pulse 126; Resp 22; Pulse Ox 95% on 6 lpm NC; al5 22:30 BP 108 / 76; Pulse 119; Resp 23; Pulse Ox 94% on 6 lpm NC; al5 23:00 BP 120 / 90; Pulse 115; Resp 22; Pulse Ox 96% on 6 lpm NC; al5 10/07 00:00 BP 113 / 75; Pulse 116; Resp 23; Pulse Ox 94% on 6 lpm NC; al5 01:00 BP 109 / 82; Pulse 83; Resp 24; Pulse Ox 94% on 6 lpm NC; al5 10/06 16:19 Body Mass Index 21.46 (56.70 kg, 162.56 cm) hb 10/06 16:19 Pain Scale: Adult hb MDM: 10/06 16:34 Medical Screening Exam initiated ec2 16:35 Data reviewed: vital signs, nurses notes. ED course: Patient arrives today for ec2 evaluation of tachycardia patient arrives today for evaluation of progressive shortness of breath. Examination yields cardiopulmonary findings as above. Will obtain septic workup, empirically treat for pneumonia. Differential includes pneumonia, viral infection, COPD exacerbation. 18:09 ED course: Patient signed out with pending lab work and reassessment.. ec2 10/06 16:24 Order name: Blood Culture Adult (2) ec2 10/06 16:24 Order name: CBC with Diff; Complete Time: 20:54 ec2 10/06 16:24 Order name: CMP; Complete Time: 18:14 ec2 10/06 16:24 Order name: Lactate w/ 2H reflex if indic.; Complete Time: 18:15 ec2 10/06 16:24 Order name: Protime (+inr); Complete Time: 18:06 ec2 10/06 16:24 Order name: Ptt, Activated; Complete Time: 18:06 ec2 10/06 16:24 Order name: ABG ec2 10/06 18:30 Order name: SARS RAPID; Complete Time: 19:22 sb4 10/06 18:30 Order name: Flu; Complete Time: 19:22 sb4 10/06 18:30 Order name: RSV; Complete Time: 19:22 sb4 10/06 20:53 Order name: CBC Smear Scan; Complete Time: 20:54 EDMS 10/06 21:50 Order name: Urinalysis w/ reflexes EDMS 10/06 21:50 Order name: CBC with Automated Diff EDMS 10/06 21:50 Order name: CBC with Automated Diff EDMS 10/06 21:50 Order name: Comprehensive Metabolic Panel EDMS 10/06 21:50 Order name: Comprehensive Metabolic Panel EDMS 10/06 16:24 Order name: Chest Single View XRAY; Complete Time: 17:29 ec2 10/06 20:56 Order name: Chest For Pe Angio; Complete Time: 22:36 EDMS 10/06 16:24 Order name: EKG; Complete Time: 16:24 ec2 10/06 16:24 Order name: Cardiac monitoring; Complete Time: 17:51 ec2 10/06 16:24 Order name: EKG - Nurse/Tech; Complete Time: 18:56 ec2 10/06 16:24 Order name: IV Saline Lock - Large Bore; Complete Time: 17:51 ec2 10/06 16:24 Order name: Labs collected and sent; Complete Time: 17:51 ec2 10/06 16:24 Order name: O2 Per Protocol; Complete Time: 17:51 ec2 10/06 16:24 Order name: O2 Sat Monitoring; Complete Time: 17:51 ec2 10/06 16:24 Order name: Vital Signs; Complete Time: 17:51 ec2 EC:49 Rate is 138 beats/min. Rhythm is regular, Sinus tachycardia. MA interval is normal at sb4 126 msec. QRS interval is normal at 76 msec. QT interval is normal at 282 msec. No Q waves. T waves are Normal. No ST changes noted. Clinical impression: Sinus tachycardia and No evidence of ischemia. Interpreted by me. Reviewed by me. Administered Medications: 16:35 CANCELLED (Physician Discretion): ns 0.9% 1000 ml IV at 1000 ml once; to be given as a ec2 bolus over 60 minutes 18:18 Drug: Cefepime IVPB 1 grams IVPB at 200 ml/hr once over 30 mins; (mix in NS 100 mL) al5 Route: IVPB; Rate: 200 ml/hr; Infused Over: 30 mins; Site: right wrist; 19:14 Follow up: Response: No adverse reaction; IV Status: Completed infusion; IV Intake: al5 100ml 18:19 Drug: DuoNeb Nebulize (3:1) (2.5 mg - 0.5 mg) 3 ml Nebulizer once Route: Nebulizer; al5 19:13 Follow up: Response: No adverse reaction al5 18:19 Drug: MethylPrednisoLONE IVP 125 mg IVP once Route: IVP; Site: right wrist; al5 19:13 Follow up: Response: No adverse reaction al5 18:19 Drug: NS 0.9% IV 2000 ml IV at 1000 ml once; to be given as a bolus over 60 minutes al5 Route: IV; Rate: 1000 ml; Site: right wrist; 23:38 Follow up: Response: No adverse reaction; IV Status: Completed infusion; IV Intake: al5 2000ml 18:19 Drug: Nicotine Transdermal Patch 21 mg/24 hr 1 patches Transdermal once Route: al5 Transdermal; Site: affected area; 19:14 Follow up: Response: No adverse reaction al5 19:14 Drug: vancoMYCIN IVPB 1 grams IVPB once over 2 hrs Route: IVPB; Infused Over: 2 hrs; al5 Site: right wrist; 21:23 Follow up: Response: No adverse reaction; IV Status: Completed infusion; IV Intake: al5 250ml 20:39 Drug: fentaNYL (PF) IVP 25 mcg IVP once Route: IVP; Site: left forearm; jj7 21:22 Follow up: Response: No adverse reaction; Pain is decreased al5 Disposition Summary: 10/06/24 20:29 Hospitalization Ordered Notes: Hospitalization Status: Inpatient Admission sb4 Provider: Enrique Thompson sb4 Location: Telemetry/MedSurg (Inpatient) sb4 Condition: Fair sb4 Problem: new sb4 Symptoms: are unchanged sb4 Bed/Room Type: Standard sb4 Room Assignment: 414(10/06/24 22:52) rv1 Diagnosis - Pneumonia, unspecified organism sb4 - Sepsis, unspecified organism sb4 - Acute and chronic respiratory failure with hypoxia sb4 Forms: - Medication Reconciliation Form sb4 - SBAR form sb4 - Leadership Thank You Letter sb4 Addendum: 10/08/2024 07:44 I agree with the assessment and plan of care. e c2 Signatures: Dispatcher [employer] EDMS Shira Hoffman RN RN Daniel Darling RN RN jAmber Sharpe PA-C PAGet sb4 Mckenzie Hernandez rv1 Karthik Soto MD MD ec2 Gloria Salgado RN RN al5 Corrections: (The following items were deleted from the chart) 10/06 16:35 16:24 NS 0.9% IV 1000 ml IV at 1000 ml once; to be given as a bolus over 60 minutes ec2 ordered. ec2 16:36 16:34 Constitutional: No acute distress ec2 ec2 18:19 16:24 Accucheck ordered. ec2 al5 22:52 20:29 sb4 rv1
[2024-10-06 20:53] LABS: Anisocytosis 1+; Blood Morphology Comment NOTED (NOT SEEN); Platelet Estimate ADEQ; Poikilocytosis 1+; White Blood Cell Scan OK (OK)
--- NOTE | 2024-10-06 21:42 | P.HP ---
Certification for Inpatient Patient admitted to: Inpatient With expected LOS: >2 Midnights Practitioner: I am a practitioner with admitting privileges, knowledge of patient current condition, hospital course, and medical plan of care. 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 And shortness of breath. Patient state that she is progressively getting short of breath. Has a recent admission for pneumonia. Cough is ongoing and shortness of breath is worsening and was brought to ER. Has subjective fever. Patient was assessed in the ER and is admitted for further management of pneumonia. Allergies codeine [From Tylenol-Codeine #3] Allergy (Verified 08/10/23 13:10) Rash propoxyphene napsylate [From Darvocet-N 100] Allergy (Verified 03/15/13 14:12) Itching/Hives/Rash Home medications list reviewed: Yes Home Medications: Nicotine [Nicoderm*] 21 mg TD DAILY #30 patch 08/19/23 Alprazolam [Xanax] 1 tab PO BEDTIME PRN 09/06/24 Gabapentin 1 cap PO TID 09/06/24 Hydrocodone Bit/Acetaminophen [[place] 10-325 Tablet] 1 tab PO QID PRN 09/06/24 Pantoprazole [Protonix Tab*] 20 mg PO BIDAC 09/06/24 ALPRAZolam [Xanax*] 1 mg PO BEDTIME PRN #20 tab 09/08/24 Budesonide [Pulmicort*] 0.5 mg NEB BIDRESP #60 amp 09/08/24 Gabapentin [Neurontin*] 100 mg PO BEDTIME #30 cap 09/08/24 Hydrocodone 10/APAP 325 [[place] 10/325*] 1 tab PO Q6HP PRN #30 tab 09/08/24 Pantoprazole [Protonix Tab*] 40 mg PO ACB #30 tab 09/08/24 Potassium Oral Tab [Klor-Con 10 mEq Tab*] 10 meq PO DAILY #30 tab 09/08/24 Spironolactone [Aldactone*] 25 mg PO DAILY #30 tab 09/08/24 levoFLOXacin [Levaquin*] 750 mg PO DAILY #7 tab 09/08/24 predniSONE [Prednisone*] 20 mg PO BID #30 tab 09/08/24 - Past Medical/Surgical History Diabetic: No Past Medical History: Reviewed- Non-Contributory -: Anxiety disorder -: Nicotine dependence -: Hypertension -: GERD -: Chronic back pain -: Pneumonia Past Surgical History: Reviewed- Non-Contributory -: BTL -: Partial stomach removed -: Colon resection - Family History Father -: Cancer Notes: pelvic cancer Mother -: Cancer Notes: lung cnacer, brain cancer Brother Notes: SIDS - Social History Smoking Status: Current some day smoker Alcohol use: No CD- Drugs: No Caffeine use: No Review of Systems 10-point ROS is otherwise unremarkable Physical Examination - Vital Signs Temperature: 98.8 F Blood Pressure: 150/100 Pulse: 142 Respirations: 18 Pulse Ox (%): 94 - Physical Exam General: Alert, Mild distress HEENT: Atraumatic, Normocephalic Neck: Supple Respiratory: Diminished, Crackles/rales, Expiratory wheezes Cardiovascular: Normal pulses, Regular rate/rhythm Capillary refill: <2 Seconds Gastrointestinal: Soft and benign, W/out hepatosplenomegaly Musculoskeletal: No clubbing, No swelling Integumentary: No rashes Neurological: Other (Alert, Awake ) Lymphatics: No axilla or inguinal lymphadenopathy - Studies Laboratory Data (last 24 hrs) 10/06/24 10/06/24 10/06/24 17:42 17:42 17:42 WBC 10.00 Hgb 11.3 L Hct 35.6 L Plt Count 248 PT 16.8 H INR 1.52 APTT 35.3 Sodium 140 Potassium 3.6 BUN 9 Creatinine 0.34 L Glucose 129 H Total Bilirubin 0.4 AST 38 H ALT 30 Alkaline Phosphatase 213 H Microbiology Data (last 24 hrs): 10/06/24 18:40 Nasopharnyx Influenza Type A Antigen Screen - Final 10/06/24 18:40 Nasopharnyx Influenza Type B Antigen Screen - Final 10/06/24 18:40 Nasopharnyx Respiratory Syncytial Virus Ag Scrn - Final Assessment and Plan - Plan Acute hypoxic and hypercapnic respiratory failure Multifocal pneumonia Tachycardic CT findings noted was negative for PE consistent with multifocal pneumonia Started on IV antibiotic Bronchodilators Monitor closely in telemetry IV hydration Chronic pain Pain management Monitor closely Continue home medications and titrate as needed Moderate protein calorie malnutrition Deconditioned and debilitated 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 History of anxiety disorder Chronic back pain History of nicotine dependence History of hypertension History of GERD and gastric ulcers Continue home medication nicotine patch DVT PPx Lovenox Full code Discharge Plan: Home Plan to discharge in: 48 Hours - Advance Directives Does patient have a Living Will: No Does patient have a Durable POA for Healthcare: No - Code Status/Comfort Care Code Status: Full Code Time Spent Managing Pts Care (In Minutes): 48
[2024-10-06] MEDS ORDERED: ACETAMINOPHEN 325 MG TABLET PO PRN (21:44)
[2024-10-06] MEDS ORDERED: ALPRAZOLAM 0.25 MG TABLET PO PRN (21:44)
[2024-10-06] MEDS ORDERED: ONDANSETRON 4 MG/2 ML VIAL IV PRN (21:44)
[2024-10-06] MEDS: CEFTRIAXONE 1,000 MG in NA CHLORIDE 0.9% 50 ML IVPB SCH (22:00)
--- NOTE | 2024-10-06 22:35 | RAD REPORT ---
EXAMINATION: CTA CHEST PE CLINICAL INDICATION: Chest pain TECHNIQUE: 100 cc 370 Isovue administered intravenously. This examination was performed according to an angiographic protocol with 3D post-processing. This involves 3D reconstructions, MIPs, volume rendered images and/or shaded surface rendering. One or more of the following dose reduction techniqu es were used: Automated exposure control, adjustment of the mA and/or kV according to patient size, and/or iterative reconstruction. Unless otherwise specified, incidental findings do not require dedic ated imaging follow-up. [id number]. COMPARISON: July 2024 FINDINGS: A pulmonary embolus is not seen. An aortic aneurysm not noted. No pleural effusion. No pericardial effusion. Mediastinal and hilar lymphadenopathy may be reactive in nature. Prominence of the main coronary artery may indicate pulmonary arterial hypertension. Moderate to marked bilateral predominantly groundglass opacities within the lungs. IMPRESSION: No evidence of a pulmonary embolism Moderate to marked bilateral predominantly groundglass opacities may indicate infection, pneumonitis or pulmonary edema
[2024-10-07] MEDS ORDERED: HYDROCODONE/APAP 5/325 MG TAB ONE (01:35)
[2024-10-07] MEDS ORDERED: NA CHLORIDE 0.9% 250 ML ONE (01:35)
[2024-10-07] MEDS ORDERED: NA CHLORIDE 0.9% 1,000 ML ONE (01:36)
[2024-10-07] MEDS ORDERED: AZITHROMYCIN 500 MG INJ IVPB ONE (01:37)
[2024-10-07] MEDS: HYDROCODONE/APAP 5/325 MG TAB PO PRN (01:44)
[2024-10-07] MEDS: NA CHLORIDE 0.9% 1,000 ML IV SCH (01:44)
[2024-10-07] MEDS: AZITHROMYCIN IV 500 MG in NA CHLORIDE 0.9% 250 ML IVPB SCH (01:44)
[2024-10-07] MEDS: MORPHINE 2 MG/ML SYR IV PRN (03:12)
[2024-10-07 06:19] LABS: Absolute Lymphocytes (CBC) 0.4 K/uL (0.7-4.9); Absolute Monocytes 0.1 K/uL (0.1-1.3); Absolute Neutrophil 5.2 K/uL (1.8-8.0); Basophils % 0.1 % (0-1.3); Hematocrit 32.5 % (36.0-45.0); Hemoglobin 10.2 g/dL (12.0-15.0); Lymphocytes % 6.2 % (15.3-44.8); MCH 26.8 pg (27.0-35.0); MCHC 31.4 g/dL (32.0-36.0); MCV 85.3 fL (80-100); MPV 7.9 fL (7.6-11.3); Monocytes % 1.8 % (3.3-12.3); Neutrophils % 91.9 % (41.7-73.7); Platelets 237 thou/uL (152-406); RBC Red Blood Cell Count 3.81 M/uL (3.86-4.86); Red Cell Distribution Width 19.9 % (12.1-15.2)
[2024-10-07 06:39] LABS: Albumin 1.8 g/dL (3.4-5.0); Albumin/Globulin Ratio 0.5 (1.1-1.8); Anion Gap 6.5 mEq/L (5.0-15.0); Bilirubin Total 0.2 mg/dL (0.2-1.0); Globulin 3.6 g/dL (2.3-3.5); Potassium 3.5 mEq/L (3.5-5.1); Protein, Total 5.4 g/dL (6.4-8.2)
[2024-10-07 07:29] LABS: Specific Gravity > 1.030 (1.005-1.030); Sqamous Epithelial <5 /HPF (None Seen); Urine Bacteria None Seen /HPF (<20); Urine Bilirubin NEGATIVE (Negative); Urine Blood Negative (Negative); Urine Clarity Clear (Clear); Urine Color Yellow (Yellow); Urine Culture Reflex Order NOT NEEDED; Urine Glucose 4+ (Over) (Negative); Urine Ketones 1+ (Negative); Urine Microscopic Reflex YN ORDER UMIC; Urine Mucus Slight /HPF (None Seen); Urine Nitrite NEGATIVE (Negative); Urine Protein 1+ (Negative); Urine RBC <5 /HPF (None Seen); Urine Urobilinogen Normal (Normal); Urine WBC <5 /HPF (<5)
[2024-10-07 07:37] LABS: Barbiturates NEGATIVE (NEGATIVE); Benzodiazepines NEGATIVE (NEGATIVE); Cocaine NEGATIVE (NEGATIVE); METHAMPHETAM NEGATIVE (NEGATIVE); Methadone NEGATIVE (NEGATIVE); Opiates POSITIVE (NEGATIVE); Phencyclidine NEGATIVE (NEGATIVE); THC Cannibis NEGATIVE (NEGATIVE)
[2024-10-07] MEDS: POTASSIUM CL SA 10 MEQ TAB PO ONE (07:56)
[2024-10-07] MEDS: SPIRONOLACTONE 25 MG TABLET PO SCH (08:39)
[2024-10-07] MEDS: PANTOPRAZOLE 40MG TABLET PO SCH (08:39)
[2024-10-07] MEDS: GABAPENTIN 300 MG CAP PO SCH (08:39)
[2024-10-07] MEDS: ENOXAPARIN 40 MG/0.4 ML SQ SCH (08:39)
[2024-10-07] MEDS: FLU (Fluarix Triv) TS24-25(6MOS UP)/PF 45 MCG/0.5 ML Syringe IM ONE (12:00)
--- NOTE | 2024-10-07 16:49 | P.PN ---
Subjective Date of Service: 10/07/24 Chief Complaint: SOB Patient states she feels slightly better today compared to yesterday. She is requiring 6 L of oxygen by nasal cannula. No recorded fever Patient denies any hemoptysis. Physical Examination - Vital Signs Temperature: 98.2 F Blood Pressure: 118/78 Pulse: 112 Respirations: 16 Pulse Ox (%): 91 - Studies Laboratory Data (last 24 hrs) 10/06/24 10/06/24 10/06/24 17:42 17:42 17:42 WBC 10.00 Hgb 11.3 L Hct 35.6 L Plt Count 248 PT 16.8 H INR 1.52 APTT 35.3 Sodium 140 Potassium 3.6 BUN 9 Creatinine 0.34 L Glucose 129 H Total Bilirubin 0.4 AST 38 H ALT 30 Alkaline Phosphatase 213 H Microbiology Data (last 24 hrs): 10/06/24 18:40 Nasopharnyx Influenza Type A Antigen Screen - Final 10/06/24 18:40 Nasopharnyx Influenza Type B Antigen Screen - Final 10/06/24 18:40 Nasopharnyx Respiratory Syncytial Virus Ag Scrn - Final Assessment And Plan - Plan Physical examination General: Alert and oriented x3, NAD, HEENT: anicteric sclera Neck: Supple, no elevated JVD Heart: Heart sounds 1 and 2 normal, regular rhythm, normal rate, no pedal edema Lungs: Bilateral coarse crackles, diminished breath sounds bilaterally, no rhonchi. Abdomen: Soft, nondistended, nontender, normal bowel sounds. Extremities: No tenderness, no deformity Skin: Normal skin turgor, no rash, no nodules or ulcers. Neuro: No focal motor deficit. Normal speech. Psychiatry: Normal mood, no agitation. Assessment and plan Diagnosis Acute hypoxic and hypercapnic respiratory failure Multifocal pneumonia Chronic pain syndrome Moderate protein calorie malnutrition Anxiety disorder History of gastric ulcer History of gastric bypass Acute respiratory failure with hypoxia and hypercapnia CT findings noted was negative for PE consistent with multifocal pneumonia History of COVID-pneumonia with residual chronic interstitial lung disease. IV cefepime and vancomycin Bronchodilators Will avoid steroid given history of significant GI bleed from gastric ulcers. Diet as tolerated. Chronic pain syndrome Continue home analgesics. Moderate protein calorie malnutrition Diet as tolerated Dietitian consult. History of anxiety disorder History of nicotine dependence History of hypertension History of GERD and gastric ulcers Continue home medications nicotine patch DVT prophylaxis: SCD Advanced directive: Full code
[2024-10-07] MEDS: VANCOMYCIN 1 GM in NA CHLORIDE 0.9% 250 ML IVPB SCH (17:23)
[2024-10-07] MEDS: NICOTINE 14 MG/PAT TD SCH ×2 (20:30→20:56)
[2024-10-07] MEDS: CEFEPIME 2 GM in NA CHLORIDE 0.9% 100 ML IV SCH (20:57)
[2024-10-07] MEDS: ALPRAZOLAM 1 MG TABLET PO PRN (21:42)
[2024-10-07] MEDS: HYDROCODONE/APAP 10/325 TAB PO PRN (23:42)
[2024-10-08 06:54] LABS: Absolute Eosinophils 0.1 K/uL (0-0.5); Absolute Lymphocytes (CBC) 1.2 K/uL (0.7-4.9); Absolute Monocytes 0.5 K/uL (0.1-1.3); Absolute Neutrophil 7.5 K/uL (1.8-8.0); Basophils % 0.2 % (0-1.3); Eosinophils % 0.8 % (0-4.4); Hemoglobin 10.8 g/dL (12.0-15.0); Lymphocytes % 12.7 % (15.3-44.8); MCH 26.4 pg (27.0-35.0); MCHC 30.8 g/dL (32.0-36.0); MCV 85.8 fL (80-100); MPV 7.8 fL (7.6-11.3); Neutrophils % 81.3 % (41.7-73.7); Nucleated Red Blood Cells % 0.1 % (0-0); Platelets 363 thou/uL (152-406); RBC Red Blood Cell Count 4.08 M/uL (3.86-4.86)
[2024-10-08 07:16] LABS: Anion Gap 4.8 mEq/L (5.0-15.0); Magnesium 2.2 mg/dL (1.6-2.4); Potassium 3.8 mEq/L (3.5-5.1)
[2024-10-08] MEDS: POTASSIUM PHOS IN 0.9 % NACL 15 MMOL/250 ML BAG IV ONE (08:55)
[2024-10-08] MEDS ORDERED: NICOTINE 14 MG/PAT TD SCH (09:00)
--- NOTE | 2024-10-08 12:53 | P.PN ---
Subjective Date of Service: 10/08/24 Chief Complaint: SOB Patient reports no changes in her shortness of breath compared to yesterday She is requiring 7 L of oxygen by nasal cannula. No recorded fever She is tolerating diet. Physical Examination - Vital Signs Temperature: 98.2 F Blood Pressure: 118/78 Pulse: 112 Respirations: 16 Pulse Ox (%): 91 Assessment And Plan - Plan Physical examination General: Alert and oriented x3, NAD, HEENT: anicteric sclera Neck: Supple, no elevated JVD Heart: Heart sounds 1 and 2 normal, regular rhythm, normal rate, no pedal edema Lungs: Bilateral coarse crackles, diminished breath sounds bilaterally, no rhonchi. Abdomen: Soft, nondistended, nontender, normal bowel sounds. Extremities: No tenderness, no deformity Skin: Normal skin turgor, generalized erythematous papules. Neuro: No focal motor deficit. Normal speech. Psychiatry: Normal mood, no agitation. Assessment and plan Diagnosis Acute hypoxic and hypercapnic respiratory failure Multifocal pneumonia Chronic pain syndrome Moderate protein calorie malnutrition Anxiety disorder History of gastric ulcer History of gastric bypass Acute respiratory failure with hypoxia and hypercapnia CT findings noted was negative for PE Findings consistent with multifocal pneumonia History of COVID-pneumonia with residual chronic interstitial lung disease. History of MRSA Continue IV cefepime and vancomycin Bronchodilators Will avoid steroid given history of significant GI bleed from gastric ulcers. Diet as tolerated. Wean oxygen as tolerated. Chest physiotherapy. Chronic pain syndrome Continue home analgesics. Moderate protein calorie malnutrition Diet as tolerated Dietitian consult. History of anxiety disorder History of nicotine dependence History of hypertension History of GERD and gastric ulcers Continue home medications nicotine patch DVT prophylaxis: SCD Advanced directive: Full code
[2024-10-08] MEDS: VANCOMYCIN 1 GM in NA CHLORIDE 0.9% 250 ML IVPB SCH (17:21)
[2024-10-08] MEDS ORDERED: VANCOMYCIN 1 GM in NA CHLORIDE 0.9% 250 ML IVPB SCH (21:00)
[2024-10-08] MEDS: IPRATROPIUM BROM 0.5MG/2.5ML NEB PRN (23:55)
[2024-10-08] MEDS: ALBUTEROL 2.5 MG/3 ML NEB SOL NEB PRN (23:55)
[2024-10-09] MEDS: FUROSEMIDE 40 MG/4 ML VIAL IV ONE ×2 (00:18→02:18)
--- NOTE | 2024-10-09 00:21 | P.PN ---
Date of Service: 10/09/24 Patient noted to be hypoxic and lethargic even with 10 L nasal cannula Difficult to arouse Will get a stat ABG Will also get a stat chest x-ray Patient to be moved to ICU for close monitoring Will give a dose of Lasix and also a dose of steroid Continue PPI Discussed with RT Getting breathing treatments
[2024-10-09 01:13] LABS: Arterial Blood Carboxyhemoglob 0.1 % (0-1.5); Blood Gas Oxyhemoglobin 75.8 % (94-97); Blood Gas THB 10.8 g/dl (12-18); Blood O2 Saturation 79.8 % (92-98.5)
[2024-10-09] MEDS: METHYLPREDNISOLONE 125 MG INJ IV ONE (02:18)
[2024-10-09 04:59] LABS: Absolute Eosinophils 0.2 K/uL (0-0.5); Absolute Lymphocytes (CBC) 0.4 K/uL (0.7-4.9); Absolute Monocytes 0.2 K/uL (0.1-1.3); Absolute Neutrophil 4.8 K/uL (1.8-8.0); Basophils % 0.4 % (0-1.3); Eosinophils % 2.9 % (0-4.4); Hematocrit 33.2 % (36.0-45.0); Hemoglobin 10.1 g/dL (12.0-15.0); Lymphocytes % 7.6 % (15.3-44.8); MCH 25.9 pg (27.0-35.0); MCHC 30.3 g/dL (32.0-36.0); MCV 85.8 fL (80-100); MPV 7.5 fL (7.6-11.3); Monocytes % 3.1 % (3.3-12.3); Platelets 325 thou/uL (152-406); RBC Red Blood Cell Count 3.88 M/uL (3.86-4.86); Red Cell Distribution Width 19.3 % (12.1-15.2)
[2024-10-09 05:30] LABS: BUN Blood Urea Nitrogen 8 mg/dL (7-18); Bicarbonate 41 mEq/L (21-32); Glucose Level 125 mg/dL (74-106); Sodium Level 142 mEq/L (136-145)
[2024-10-09 05:47] LABS: Glomerular Filtration Rate 140 ml/min (=/>90)
--- NOTE | 2024-10-09 06:12 | RAD REPORT ---
TIME OF STUDY: 10/09/2024 12:06 AM ENERGY RISK MANAGEMENT ANALYST REASON FOR EXAM: SOB COMPARISON: August 12, 2023 FINDINGS: AP view of the chest was obtained, chest 1 view. Lungs: The lungs are adequately inflated. Diffuse interstitial and patchy airspace opacities are note d bilaterally. These findings could be consistent with chronic lung disease. Superimposed pneumonia cannot be completely excluded. Pleura: No pneumothorax. There is no pleural effusion. Heart and Mediastinum: Normal cardiomediastinal silhouette and great vessels.. Bones: No acute bony abnormality.. IMPRESSION: 1. Diffuse bilateral interstitial and patchy airspace opacities. Electronically signed by: Manny Gomez MD 10/09/2024 01:51 AM ENERGY RISK MANAGEMENT ANALYST RP Due to temporary technical issues with the [email or web address] reporting system, reports are being phillip d by the in-house radiologist without review as a courtesy to ensure prompt reporting the interpreting radiologist is fully responsible for the content of the report. Transcribed Date/Time: 10/09/2024 6:12 AM
--- NOTE | 2024-10-09 06:13 | RAD REPORT ---
EXAM: XR Chest, 1 View CLINICAL HISTORY: Central line placement TECHNIQUE: Frontal view of the chest. COMPARISON: 10/09/2024 12: 5 AM FINDINGS: Lungs: Diffuse multifocal opacities within the lungs bilaterally without significant interval keller e in overall lung aeration. Pleural space: Unremarkable. No pneumothorax. Heart: The cardiac silhouette is mildly enlarged, stable, in part accentuated by portable technique . Mediastinum: Unremarkable. Normal mediastinal contour. Bones/joints: Unremarkable. No acute fracture. Tubes, lines and devices: Interval placement of a right internal jugular central venous catheter. T he tip projects over the distal superior vena cava. IMPRESSION: 1. Interval placement of a right internal jugular central venous catheter. The tip projects over th e distal superior vena cava. 2. Diffuse multifocal infiltrates without significant interval change. Electronically signed by: Saroj Andres MD 10/09/2024 03:42 AM [facility] Due to temporary technical issues with the PACS/[employer] reporting system, reports are being phillip d by the in-house radiologist without review as a courtesy to ensure prompt reporting the interpreting radiologist is fully responsible for the content of the report. Transcribed Date/Time: 10/09/2024 6:13 AM
[2024-10-09 06:27] LABS: Blood Gas Oxyhemoglobin 88.4 % (94-97); Blood Gas THB 10.9 g/dl (12-18); Blood O2 Saturation 93.4 % (92-98.5)
[2024-10-09] MEDS: Mupirocin NASAL 2 APPL/1 GM TUBE NAS SCH (07:30)
[2024-10-09] MEDS: KCL 20 MEQ/100 mL IVPB 20 MEQ/100 ML BAG IV SCH (07:37)
--- NOTE | 2024-10-09 12:14 | P.PN ---
Subjective Date of Service: 10/09/24 Chief Complaint: SOB Patient reported to have developed respiratory distress last night. She was placed on BiPAP and transferred to the ICU. Patient on BiPAP during examination this morning. She is awake and alert. No recorded fever Physical Examination - Vital Signs Temperature: 97.2 F Blood Pressure: 134/86 Pulse: 104 Respirations: 21 Pulse Ox (%): 96 Assessment And Plan - Plan Physical examination General: Alert and oriented x3, NAD, HEENT: BiPAP in place. Neck: Supple, no elevated JVD Heart: Heart sounds 1 and 2 normal, regular rhythm, normal rate, no pedal edema Lungs: Bilateral coarse crackles, diminished breath sounds bilaterally, no rhonchi. Abdomen: Soft, nondistended, nontender, normal bowel sounds. Extremities: No tenderness, no deformity Skin: Normal skin turgor, generalized erythematous papules. Neuro: No focal motor deficit. Normal speech. Psychiatry: Normal mood, no agitation. Assessment and plan Diagnosis Acute hypoxic and hypercapnic respiratory failure Multifocal pneumonia Chronic pain syndrome Moderate protein calorie malnutrition Anxiety disorder History of gastric ulcer History of gastric bypass Acute respiratory failure with hypoxia and hypercapnia CT findings noted was negative for PE Findings consistent with multifocal pneumonia History of COVID-pneumonia with residual chronic interstitial lung disease. History of MRSA Continue IV cefepime and vancomycin Bronchodilators. BiPAP and high flow oxygen as needed. Diet as tolerated. Wean oxygen as tolerated. Chest physiotherapy. Chronic pain syndrome Continue home analgesics. Moderate protein calorie malnutrition Diet as tolerated Dietitian consult. History of anxiety disorder History of nicotine dependence History of hypertension History of GERD and gastric ulcers Continue home medications nicotine patch DVT prophylaxis: SCD Advanced directive: Full code
[2024-10-09] MEDS ORDERED: VANCOMYCIN 1 GM in NA CHLORIDE 0.9% 250 ML IVPB SCH (17:00)
[2024-10-09] MEDS: VANCOMYCIN 1.25 GM in NA CHLORIDE 0.9% 250 ML IVPB SCH (17:09)
[2024-10-10 02:37] VITALS: BMI 22.6
[2024-10-10 05:08] LABS: Absolute Eosinophils 0.1 K/uL (0-0.5); Absolute Lymphocytes (CBC) 1.6 K/uL (0.7-4.9); Absolute Monocytes 0.4 K/uL (0.1-1.3); Absolute Neutrophil 3.7 K/uL (1.8-8.0); Basophils % 0.5 % (0-1.3); Eosinophils % 2.2 % (0-4.4); Hematocrit 30.2 % (36.0-45.0); Hemoglobin 9.3 g/dL (12.0-15.0); Lymphocytes % 26.5 % (15.3-44.8); MCH 25.8 pg (27.0-35.0); MCHC 30.7 g/dL (32.0-36.0); MCV 84.1 fL (80-100); MPV 7.3 fL (7.6-11.3); Monocytes % 7.6 % (3.3-12.3); Neutrophils % 63.2 % (41.7-73.7); Platelets 330 thou/uL (152-406); RBC Red Blood Cell Count 3.59 M/uL (3.86-4.86); Red Cell Distribution Width 19.2 % (12.1-15.2)
[2024-10-10 05:55] LABS: Anion Gap 3.9 mEq/L (5.0-15.0); Potassium 2.9 mEq/L (3.5-5.1)
[2024-10-10] MEDS: KCL 20 MEQ/100 mL IVPB 20 MEQ/100 ML BAG IV SCH (06:33)
[2024-10-10] MEDS ORDERED: ALBUTEROL 2.5 MG/3 ML NEB SOL NEB PRN (13:03)
[2024-10-10 17:05] LABS: Potassium 3.4 mEq/L (3.5-5.1)
[2024-10-10] MEDS: POTASSIUM CL SA 10 MEQ TAB PO ONE ×2 (17:26→18:21)
[2024-10-11 06:23] LABS: Absolute Basophils 0.1 K/uL (0-0.5); Absolute Eosinophils 0.2 K/uL (0-0.5); Absolute Monocytes 0.4 K/uL (0.1-1.3); Absolute Neutrophil 4.5 K/uL (1.8-8.0); Basophils % 0.8 % (0-1.3); Eosinophils % 3.2 % (0-4.4); Hematocrit 33.7 % (36.0-45.0); Hemoglobin 10.6 g/dL (12.0-15.0); Lymphocytes % 15.9 % (15.3-44.8); MCH 26.4 pg (27.0-35.0); MCHC 31.4 g/dL (32.0-36.0); MCV 83.9 fL (80-100); Monocytes % 7.1 % (3.3-12.3); Nucleated Red Blood Cells % 0.2 % (0-0); Platelets 413 thou/uL (152-406); RBC Red Blood Cell Count 4.02 M/uL (3.86-4.86); Red Cell Distribution Width 19.5 % (12.1-15.2)
[2024-10-11] MEDS ORDERED: VANCOMYCIN 1.25 GM in NA CHLORIDE 0.9% 250 ML IVPB SCH ×2 (08:00→15:00)
[2024-10-11 08:20] LABS: Anion Gap 5.6 mEq/L (5.0-15.0); Potassium 3.6 mEq/L (3.5-5.1)
[2024-10-11] MEDS: POTASSIUM CL SA 10 MEQ TAB PO ONE (08:54)
--- NOTE | 2024-10-11 11:39 | P.PN ---
Subjective Date of Service: 10/11/24 Chief Complaint: SOB Patient denies any complaint. He reports significant improvement in shortness of breath when she is ambulating in the ICU room. Oxygen weaned down to 3L by nasal cannula She is awake and alert. No recorded fever Physical Examination - Vital Signs Temperature: 98.4 F Blood Pressure: 117/79 Pulse: 82 Respirations: 17 Pulse Ox (%): 93 Assessment And Plan - Plan Physical examination General: Alert and oriented x3, NAD, HEENT: BiPAP in place. Neck: Supple, no elevated JVD Heart: Heart sounds 1 and 2 normal, regular rhythm, normal rate, no pedal edema Lungs: Bilateral coarse crackles, diminished breath sounds bilaterally, no rhonchi. Abdomen: Soft, nondistended, nontender, normal bowel sounds. Extremities: No tenderness, no deformity Skin: Normal skin turgor, generalized erythematous papules. Neuro: No focal motor deficit. Normal speech. Psychiatry: Normal mood, no agitation. Assessment and plan Diagnosis Acute hypoxic and hypercapnic respiratory failure Multifocal pneumonia Chronic pain syndrome Moderate protein calorie malnutrition Anxiety disorder History of gastric ulcer History of gastric bypass Acute respiratory failure with hypoxia and hypercapnia CT findings noted was negative for PE Findings consistent with multifocal pneumonia History of COVID-pneumonia with residual chronic interstitial lung disease. History of MRSA Respiratory status is slowly improving. Continue IV cefepime and vancomycin Bronchodilators. Continue to wean oxygen, hopefully to room air. Diet as tolerated. Chest physiotherapy. Chronic pain syndrome Continue home analgesics. Moderate protein calorie malnutrition Diet as tolerated History of anxiety disorder History of nicotine dependence History of hypertension History of GERD and gastric ulcers Continue home medications nicotine patch DVT prophylaxis: SCD Advanced directive: Full code
--- NOTE | 2024-10-11 11:44 | P.PN ---
Subjective Date of Service: 10/10/24 Chief Complaint: SOB Patient states she is feeling better, reports less shortness of breath. Oxygen weaned down to 4L by nasal cannula No recorded fever Physical Examination - Vital Signs Temperature: 98.4 F Blood Pressure: 117/79 Pulse: 82 Respirations: 17 Pulse Ox (%): 93 Assessment And Plan - Plan Physical examination General: Alert and oriented x3, NAD, Neck: Supple, no elevated JVD Heart: Heart sounds 1 and 2 normal, regular rhythm, normal rate, no pedal edema Lungs: Bilateral coarse crackles, diminished breath sounds bilaterally, no rhonchi. Abdomen: Soft, nondistended, nontender, normal bowel sounds. Extremities: No tenderness, no deformity Neuro: No focal motor deficit. Normal speech. Psychiatry: Normal mood, no agitation. Assessment and plan Diagnosis Acute hypoxic and hypercapnic respiratory failure Multifocal pneumonia Chronic pain syndrome Moderate protein calorie malnutrition Anxiety disorder History of gastric ulcer History of gastric bypass Acute respiratory failure with hypoxia and hypercapnia CT findings noted was negative for PE Findings consistent with multifocal pneumonia History of COVID-pneumonia with residual chronic interstitial lung disease. History of MRSA Continue IV cefepime and vancomycin Bronchodilators. Continue to wean oxygen. Diet as tolerated. Chest physiotherapy. Chronic pain syndrome Continue home analgesics. Moderate protein calorie malnutrition Diet as tolerated History of anxiety disorder History of nicotine dependence History of hypertension History of GERD and gastric ulcers Continue home medications nicotine patch DVT prophylaxis: SCD Advanced directive: Full code
[2024-10-11] MEDS: VANCOMYCIN 1.25 GM in NA CHLORIDE 0.9% 250 ML IVPB SCH (15:11)
--- NOTE | 2024-10-11 23:21 | P.CNS ---
Date of Consult: 10/11/24 Reason for Consult: Bilateral pneumonia Chief Complaint: SOB History of Present Illness: Patient is 43 years of age history of recurrent hospitalizations with bilateral infiltrates no known etiology extensive workup including serologies HIV testing is all been negative she was just recently and was discharged was doing well and became sick again more short of breath was admitted from the hospital again with bilateral infiltrates currently doing better was treated with broad-spectrum antibiotics currently denies any fever chills chest pain cough or hemoptysis apparently patient was scheduled to have clearance from pulmonology at [facility] for a bronchoscopy and endoscopy Allergies codeine [From Tylenol-Codeine #3] Allergy (Verified 08/10/23 13:10) Rash propoxyphene napsylate [From Darvocet-N 100] Allergy (Verified 03/15/13 14:12) Itching/Hives/Rash Home Medications: Nicotine [Nicoderm*] 21 mg TD DAILY #30 patch 08/19/23 Alprazolam [Xanax] 1 tab PO BEDTIME PRN 09/06/24 Gabapentin 1 cap PO TID 09/06/24 Hydrocodone Bit/Acetaminophen [Darrow 10-325 Tablet] 1 tab PO QID PRN 09/06/24 Pantoprazole [Protonix Tab*] 20 mg PO BIDAC 09/06/24 ALPRAZolam [Xanax*] 1 mg PO BEDTIME PRN #20 tab 09/08/24 Budesonide [Pulmicort*] 0.5 mg NEB BIDRESP #60 amp 09/08/24 Gabapentin [Neurontin*] 100 mg PO BEDTIME #30 cap 09/08/24 Hydrocodone 10/APAP 325 [Darrow 10/325*] 1 tab PO Q6HP PRN #30 tab 09/08/24 Pantoprazole [Protonix Tab*] 40 mg PO ACB #30 tab 09/08/24 Potassium Oral Tab [Klor-Con 10 mEq Tab*] 10 meq PO DAILY #30 tab 09/08/24 Spironolactone [Aldactone*] 25 mg PO DAILY #30 tab 09/08/24 levoFLOXacin [Levaquin*] 750 mg PO DAILY #7 tab 09/08/24 predniSONE [Prednisone*] 20 mg PO BID #30 tab 09/08/24 - Past Medical/Surgical History Diabetic: No -: Anxiety disorder -: Nicotine dependence -: Hypertension -: GERD -: Chronic back pain -: Pneumonia -: MRSA in 2020 -: stomach ulcers -: BTL -: Partial stomach removed -: Colon resection - Family History Father Medical History: Cancer Notes: pelvic cancer Mother Medical History: Cancer Notes: lung cnacer, brain cancer Brother Notes: SIDS - Social History Smoking Status: Unknown if ever smoked Alcohol use: No CD- Drugs: No Caffeine use: No Place of Residence: Home Review of Systems 10-point ROS is otherwise unremarkable Physical Examination Temp Pulse Resp BP Pulse Ox 97.4 F 105 H 25 H 107/75 97 10/11/24 20:00 10/11/24 20:00 10/11/24 20:10 10/11/24 20:00 10/11/24 20:10 General: Alert, In no apparent distress, Oriented x3 Neck: Supple Respiratory: Clear to auscultation bilaterally Gastrointestinal: Normal bowel sounds, Soft and benign - Problems (1) Pneumonia Current Visit: Yes Status: Acute Plan: Patient is 43 years of age with a history of recurrent pneumonia has bilateral pulmonary infiltrates no evidence of an active infection she responds well to steroids extensive prior serological testing have been unremarkable no apparent cause for her bilateral infiltrates will plan to schedule her for a bronchoscopy I have discussed with her the risk and benefit including bleeding infection and lung collapse DC IV antibiotics start patient on prednisone patient's vital signs are stable patient agrees to have the bronchoscopy done patient has underlying hypoxemia and intermittent hypercarbia cultures are negative white co unt is normal patient has extensive bilateral groundglass changes most likely chronic nonspecific interstitial pneumonia Qualifiers: Laterality: bilateral
[2024-10-11] MEDS: VITAMIN K (ADULT) 10 MG/ML SQ ONE (23:53)
[2024-10-11] MEDS: predniSONE 20 MG TAB PO SCH (23:53)
[2024-10-12 06:52] LABS: Absolute Eosinophils 0.1 K/uL (0-0.5); Absolute Lymphocytes (CBC) 0.7 K/uL (0.7-4.9); Absolute Monocytes 0.2 K/uL (0.1-1.3); Absolute Neutrophil 5.1 K/uL (1.8-8.0); Basophils % 0.3 % (0-1.3); Eosinophils % 0.8 % (0-4.4); Hematocrit 34.7 % (36.0-45.0); Hemoglobin 10.7 g/dL (12.0-15.0); MCH 26.2 pg (27.0-35.0); MCHC 30.9 g/dL (32.0-36.0); Monocytes % 3.1 % (3.3-12.3); Neutrophils % 84.8 % (41.7-73.7); Nucleated Red Blood Cells % 0.1 % (0-0); Platelets 458 thou/uL (152-406); RBC Red Blood Cell Count 4.08 M/uL (3.86-4.86)
[2024-10-12 06:59] LABS: PT Prothrombin Time 12.1 SECONDS (9.4-12.5); Protime INR 1.08
[2024-10-12 07:08] LABS: Anion Gap 6.7 mEq/L (5.0-15.0); Potassium 4.7 mEq/L (3.5-5.1)
--- NOTE | 2024-10-12 10:59 | P.PN ---
Subjective Date of Service: 10/12/24 Chief Complaint: SOB Patient states his shortness of breath continues to get better. Oxygen has been weaned down to 2 L and she is tolerating with oxygen saturation around 95% No recorded fever. She is tolerating diet. She denies any melena Physical Examination - Vital Signs Temperature: 97.4 F Blood Pressure: 112/71 Pulse: 94 Respirations: 12 Pulse Ox (%): 96 - Studies Microbiology Data (last 24 hrs): 10/06/24 17:42 Blood - Blood Aerobic Blood Culture - Final No growth in 5 days. 10/06/24 17:42 Blood - Blood Anaerobic Blood Culture - Final No growth in 5 days. 10/06/24 17:42 Blood - Blood Aerobic Blood Culture - Final No growth in 5 days. 10/06/24 17:42 Blood - Blood Anaerobic Blood Culture - Final No growth in 5 days. Assessment And Plan - Plan Physical examination General: Alert and oriented x3, NAD, Neck: Supple, no elevated JVD Heart: Heart sounds 1 and 2 normal, regular rhythm, normal rate, no pedal edema Lungs: Bilateral coarse crackles, diminished breath sounds bilaterally, no rhonchi. Abdomen: Soft, nondistended, nontender, normal bowel sounds. Extremities: No tenderness, no deformity Neuro: No focal motor deficit. Normal speech. Psychiatry: Normal mood, no agitation. Assessment and plan Diagnosis Acute hypoxic and hypercapnic respiratory failure Multifocal pneumonia Chronic pain syndrome Moderate protein calorie malnutrition Anxiety disorder History of gastric ulcer History of gastric bypass Acute respiratory failure with hypoxia and hypercapnia CT findings noted was negative for PE Findings consistent with multifocal pneumonia History of COVID-pneumonia with residual chronic interstitial lung disease. History of MRSA Pulmonary Dr. Walker input appreciated. Patient started on steroid, antibiotics discontinued Continue bronchodilators. Continue to wean oxygen. Diet as tolerated. Dr. Walker is planning bronchoscopy Chronic pain syndrome Continue home analgesics. Moderate protein calorie malnutrition Diet as tolerated History of anxiety disorder History of nicotine dependence History of hypertension History of GERD and gastric ulcers Continue home medications nicotine patch DVT prophylaxis: SCD Advanced directive: Full code
--- NOTE | 2024-10-12 11:24 | EKG ---
Test Date: 2024-10-06 Test Time: 18:47:20 Clinic Nurse: LORENA MEASUREMENT RESULTS: Intervals: Rate: 138 VT: 126 QRSD: 76 QT: 282 QTc: 427 Lawrence: P: 50 VT: 126 QRS: 122 T: 20 INTERPRETIVE STATEMENTS: Sinus tachycardia Possible Left atrial enlargement Low voltage QRS Left posterior fascicular block Cannot rule out Anterior infarct, age undetermined Abnormal ECG Compared to ECG 09/04/2024 20:09:02 Left posterior fascicular block now present Myocardial infarct finding now present Right-axis deviation no longer present Electronically Signed On 10-12-24 11:17:50 [employer] by Benji Zuleta
[2024-10-13 04:31] LABS: Absolute Eosinophils 0.1 K/uL (0-0.5); Absolute Monocytes 0.4 K/uL (0.1-1.3); Absolute Neutrophil 6.2 K/uL (1.8-8.0); Basophils % 0.2 % (0-1.3); Eosinophils % 1.2 % (0-4.4); Hematocrit 33.1 % (36.0-45.0); Lymphocytes % 12.7 % (15.3-44.8); MCH 25.8 pg (27.0-35.0); MCHC 30.3 g/dL (32.0-36.0); MCV 85.4 fL (80-100); MPV 7.4 fL (7.6-11.3); Monocytes % 5.3 % (3.3-12.3); Neutrophils % 80.6 % (41.7-73.7); Platelets 425 thou/uL (152-406); RBC Red Blood Cell Count 3.87 M/uL (3.86-4.86); Red Cell Distribution Width 19.2 % (12.1-15.2)
[2024-10-13 04:39] LABS: Anion Gap 6.9 mEq/L (5.0-15.0); Potassium 3.9 mEq/L (3.5-5.1)
--- NOTE | 2024-10-13 07:40 | P.PN ---
Date of Service: 10/13/24 Subjective: feels breathing improving daily Oxygen requirements improving. Has oxygen at home but only uses it as needed reports some back and stomach pains; not worse compared to how its been over the last few months afebrile ROS: 10 point ROS as noted above, otherwise negative Physical Exam: GEN: Alert, NAD CV: Regular rate and rhythm, no edema Pulm: Nonlabored respirations on 3L NC at rest, wheeze ABD: soft, nontender, nondistended Neuro: Normal speech, normal affect Problem List: Acute hypoxic and hypercapnic respiratory failure secondary to multifocal pneumonia Hx of COVID-pneumonia with residual chronic interstitial lung disease Chronic pain syndrome Abdominal pain, chronic Moderate protein calorie malnutrition Anxiety disorder nicotine dependence Hx of iron deficiency anemia Hx of gastric ulcer / GERD Hx of gastric bypass hx MRSA Acute hypoxic and hypercapnic respiratory failure secondary to multifocal pneumonia Hx of COVID-pneumonia with residual chronic interstitial lung disease on admission, presents with worsening shortness of breath, cough, weakness for 2-3 days. +subjective fever/chills. Reportedly desatting to 70s at home. CXR (10/06): moderate bilateral pulmonary opacities likely pneumonia. CTA chest (10/06): no PE. Moderate to marked bilateral predominantly groundglass opacities may indicate infection, pneumonitis or pulmonary edema Recent echo (09/08/24): 50-55% EF, normal wall motion, normal diastolic function. Dr. Walker, pulm consulted Pulm planning for bronchoscopy; unsure on timing given holiday s/p 5 days of Cefepime / Vanc (10/07-10/11) Blood cx (10/06): No growth. continue oral prednisone 20 mg BID continue home spironolactone wean oxygen as tolerated duonebs Chronic pain syndrome continue norco 10/325 morphine added 10/13 Abdominal pain, chronic report been dealing with some abdominal pain for last few months. Denies any worsening pains. Denies diarrhea/constipation. Follows up with GI at [facility]. Has upcoming follow up appointment for Endoscopy pain control Protonix BID Moderate protein calorie malnutrition diet as tolerated. Supplemental nutritional as tolerated. Anxiety disorder continue home xanax nicotine dependence continue nicoderm patch VTE: SCD Code: Full Dispo: Home Pending bronchoscopy; pulm recs Time Spent Managing Pts Care (In Minutes): 45
[2024-10-13 08:12] LABS: Magnesium 2.2 mg/dL (1.6-2.4); Phosphorus 2.9 mg/dL (2.5-4.9)
[2024-10-13] MEDS: MORPHINE 2 MG/ML SYR IV PRN (10:14)
[2024-10-13] MEDS: PANTOPRAZOLE 40MG TABLET PO SCH (17:20)
--- NOTE | 2024-10-14 11:20 | P.PN ---
Date of Service: 10/14/24 Subjective: no events overnight denies any new problems abdominal pains ~same afebrile ROS: 10 point ROS as noted above, otherwise negative Physical Exam: GEN: Alert, NAD CV: Regular rate and rhythm, no edema Pulm: Nonlabored respirations on 3L NC at rest, wheeze ABD: soft, mild tenderness, nondistended Neuro: Normal speech, normal affect Problem List: Acute hypoxic and hypercapnic respiratory failure secondary to multifocal pneumonia Hx of COVID-pneumonia with residual chronic interstitial lung disease Chronic pain syndrome Abdominal pain, chronic Moderate protein calorie malnutrition Anxiety disorder nicotine dependence Hx of iron deficiency anemia Hx of gastric ulcer / GERD Hx of gastric bypass hx MRSA Acute hypoxic and hypercapnic respiratory failure secondary to multifocal pneumo zarina Hx of COVID-pneumonia with residual chronic interstitial lung disease on admission, presents with worsening shortness of breath, cough, weakness for 2-3 days. +subjective fever/chills. Reportedly desatting to 70s at home. CXR (10/06): moderate bilateral pulmonary opacities likely pneumonia. CTA chest (10/06): no PE. Moderate to marked bilateral predominantly groundglass opacities may indicate infection, pneumonitis or pulmonary edema Recent echo (09/08/24): 50-55% EF, normal wall motion, normal diastolic function. Dr. Walker, pulm consulted Pulm planning for bronchoscopy; anticipate sometime in the next 1-2 days s/p 5 days of Cefepime / Vanc (10/07-10/11) Blood cx (10/06): No growth. continue oral prednisone 20 mg BID continue home spironolactone wean oxygen as tolerated duonebs Chronic pain syndrome continue norco 10/325 morphine added 10/13 Abdominal pain, chronic report been dealing with some abdominal pain for last few months. Denies any worsening pains. Denies diarrhea/constipation. Follows up with GI at [facility]. Has upcoming follow up appointment for Endoscopy pain control Protonix BID Moderate protein calorie malnutrition diet as tolerated. Supplemental nutritional as tolerated. Anxiety disorder continue home xanax nicotine dependence continue nicoderm patch VTE: SCD Code: Full Dispo: Home Pending bronchoscopy; pulm recs Time Spent Managing Pts Care (In Minutes): 45
[2024-10-14] MEDS: MORPHINE 2 MG/ML SYR IV PRN (11:36)
--- NOTE | 2024-10-15 07:30 | RAD REPORT ---
Procedure: Chest Single View HISTORY: Cough COMPARISON: October 09, 2024 FINDINGS: Bilateral pulmonary opacities have partially resolved. No significant pleural effusion noted. The heart is mildly enlarged. Central venous catheter with its tip near the junction of the SVC and right atrium.. IMPRESSION: Significant improvement in the bilateral pulmonary opacities..
[2024-10-15 07:37] LABS: Absolute Lymphocytes (CBC) 1.1 K/uL (0.7-4.9); Absolute Monocytes 0.5 K/uL (0.1-1.3); Absolute Neutrophil 9.1 K/uL (1.8-8.0); Basophils % 0.1 % (0-1.3); Eosinophils % 0.2 % (0-4.4); Hematocrit 34.2 % (36.0-45.0); Hemoglobin 10.8 g/dL (12.0-15.0); Lymphocytes % 10.5 % (15.3-44.8); MCH 26.6 pg (27.0-35.0); MCHC 31.6 g/dL (32.0-36.0); MCV 84.2 fL (80-100); MPV 7.2 fL (7.6-11.3); Monocytes % 4.8 % (3.3-12.3); Neutrophils % 84.4 % (41.7-73.7); Nucleated Red Blood Cells % 0.1 % (0-0); Platelets 467 thou/uL (152-406); RBC Red Blood Cell Count 4.06 M/uL (3.86-4.86); Red Cell Distribution Width 19.7 % (12.1-15.2)
[2024-10-15 07:50] LABS: Anion Gap 6.8 mEq/L (5.0-15.0); Magnesium 2.1 mg/dL (1.6-2.4); Potassium 3.8 mEq/L (3.5-5.1)
[2024-10-15] MEDS: KCL 20 MEQ/100 mL IVPB 20 MEQ/100 ML BAG IV SCH (08:45)
[2024-10-15] MEDS: Phenylephrine HCl 10 MG/ML 1 ML VIAL ONE (10:08)
--- NOTE | 2024-10-15 10:27 | P.PN ---
Date of Service: 10/15/24 Subjective: breathing okay on 2L NC. Has oxygen setup at home denies any worsening problems tentative plan for bronchoscopy today afebrile ROS: 10 point ROS as noted above, otherwise negative Physical Exam: GEN: Alert, NAD CV: Regular rate and rhythm, no edema Pulm: Nonlabored respirations on 2L NC at rest, wheeze ABD: soft, mild tenderness, nondistended Neuro: Normal speech, normal affect Problem List: Acute hypoxic and hypercapnic respiratory failure secondary to multifocal pneumonia Hx of COVID-pneumonia with residual chronic interstitial lung disease Chronic pain syndrome Abdominal pain, chronic Moderate protein calorie malnutrition Anxiety disorder nicotine dependence Hx of iron deficiency anemia Hx of gastric ulcer / GERD Hx of gastric bypass hx MRSA Acute hypoxic and hypercapnic respiratory failure secondary to multifocal pneumonia Hx of COVID-pneumonia with residual chronic interstitial lung disease on admission, presents with worsening shortness of breath, cough, weakness for 2-3 days. +subjective fever/chills. Reportedly desatting to 70s at home. CXR (10/06): moderate bilateral pulmonary opacities likely pneumonia. CTA chest (10/06): no PE. Moderate to marked bilateral predominantly groundglass opacities may indicate infection, pneumonitis or pulmonary edema CXR (10/15): significantly improvement of bilateral opacities. Recent echo (09/08/24): 50-55% EF, normal wall motion, normal diastolic function. Dr. Walker, pulm consulted Pulm planning for bronchoscopy today; NPO for now s/p 5 days of Cefepime / Vanc (10/07-10/11) Blood cx (10/06): No growth. continue oral prednisone 20 mg BID continue home spironolactone wean oxygen as tolerated - has home O2 duonebs Chronic pain syndrome continue norco 10/325 morphine added 10/13 has f/u appt with her doc next week Abdominal pain, chronic report been dealing with some abdominal pain for last few months. Denies any worsening pains. Denies diarrhea/constipation. Follows up with GI at [facility]. Has upcoming follow up appointment for Endoscopy pain control Protonix BID Moderate protein calorie malnutrition diet as tolerated. Supplemental nutritional as tolerated. Anxiety disorder continue home xanax nicotine dependence continue nicoderm patch VTE: SCD Code: Full Dispo: Home, ~1 day Pending bronchoscopy; pulm recs Time Spent Managing Pts Care (In Minutes): 45
[2024-10-15] MEDS: MORPHINE 2 MG/ML SYR IV ONE (10:40)
[2024-10-15 11:28] LABS: Specific Gravity 1.021 (1.005-1.030)
[2024-10-15] MEDS: NA CHLORIDE 0.9% 500 ML ONE (11:30)
[2024-10-15] MEDS ORDERED: propofoL 200 MG/20 ML VIAL IV ONE (11:41)
[2024-10-15] MEDS ORDERED: LIDOCAINE 1% MPF 5 ML VIAL ONE (11:41)
[2024-10-15] MEDS: LIDOCAINE 1% MPF 30 ML VIAL ONE (12:10)
[2024-10-15] MEDS: LIDOCAINE 4% TOP SOLUTION ONE (12:10)
--- NOTE | 2024-10-15 12:29 | P.OP ---
Date of Service: 10/15/24 (Bronchoscopy with right upper lobe and right lower lobe BAL and transbronchial biopsies) Findings and Operative Technique Patient is 43 years of age with a history of chronic interstitial lung disease diffuse groundglass appearance most likely nonspecific interstitial pneumonitis with recurrent admissions has the reason for bronchoscopy After obtaining informed consent from the patient she was premedicated by anesthesia Findings normal trachea normal emmanuel normal right and left-sided bronchial anatomy no purulent secretions visible multiple biopsies were obtained from the right upper lobe right lower right lower lobe including a BAL patient tolerated the procedure very well did not experience any hypotension or arrhythmias to be discharged home follow-up with me in 2 weeks
--- NOTE | 2024-10-15 13:00 | RAD REPORT ---
Fluoroscopy time 2 minutes and 12 seconds
--- NOTE | 2024-10-15 14:24 | RAD REPORT ---
EXAMINATION: ONE VIEW CHEST XR CLINICAL INDICATION: S/P BRONCHOSCOPY TECHNIQUE: Frontal chest projection is submitted. Examination is limited by patient positioning and t echnique. COMPARISON: No prior exam. FINDINGS: Underinflated lungs resulting vascular crowding. No postprocedure pneumothorax. The heart is upper li julio of normal in size. Right-sided venous catheters tip in SVC. IMPRESSION: No postprocedure pneumothorax seen.
[2024-10-16 08:49] VITALS: BP 82/61; TEMP 97.9
--- NOTE | 2024-10-16 08:51 | P.DS ---
Admission Date: 10/06/24 Discharge Date: 10/16/24 Disposition: ROUTINE DISCHARGE Discharge Condition: GOOD Reason for Admission: SOB Consultations: Pulmonology - Dr. Walker Brief History of Present Illness: 43 yo F, PMH: anxiety disorder, nicotine dependence, hypertension, GERD, Gastric ulcers, multiple GI bleeds status post partial gastrectomy and partial small intestine removal, chronic back pain, pneumonia Patient presents with chief complaint of decreased oxygen saturation in the 70s. And shortness of breath. Patient state that she is progressively getting short of breath. Has a recent admission for pneumonia. Cough is ongoing and shortness of breath is worsening and was brought to ER. Has subjective fever. Patient was assessed in the ER and is admitted for further management of pneum onia. Hospital Course: Problem List: Acute hypoxic and hypercapnic respiratory failure secondary to multifocal pneumonia Hx of COVID-pneumonia with residual chronic interstitial lung disease Chronic pain syndrome Abdominal pain, chronic Moderate protein calorie malnutrition Anxiety disorder nicotine dependence Hx of iron deficiency anemia Hx of gastric ulcer / GERD Hx of gastric bypass hx MRSA Physician discharge instructions: Patient presented with worsening shortness of breath, cough, weakness, fever, chills for 2-3 days secondary to chronic nonspecific interstitial pneumonia per pulmonology. Chest xray on admission noted moderate bilateral pulmonary opacities concerning for pneumonia. CTA chest was negative for PE, noted mod-marked bilateral predominantly groundglass opacities likely infection/pneumonitis vs pulmonary edema. Blood cultures were without growth. Patient received steroids, nebs while hospitalized in addition to completing 5 days of empiric IV cefepime / vanc (10/07-10/11) and had improvement of her symptoms. Dr. Walker, [employer] was consulted and recommended bronchoscopy to further evaluate, which was performed on 10/15 without complications. Repeat Chest xray 10/15/24 noted significant improvement in bilateral opacities. Patient was feeling better, breathing more comfortably, afebrile without leukocytosis for several days after completing antibiotics, cough improved, and was deemed stable for discharge. During her hospitalization, she reported dealing with some intermittent abdominal pain, unchanged for several months. She denied any constipation or diarrhea. Patient reports following up with GI at [facility] and has an upcoming follow up appointment for endoscopy. No further work up. Follow up with GI as previously planned. Medications: Prednisone 10mg twice daily x2 weeks. 1 month Refill sent for Gabapentin 300 mg three times a day. Xanax 5 pills as needed for anxiety. Continue other home medications as previously prescribed. Follow up with PCP for further refills. Follow up: PCP 3-5 days Pulmonology 2 weeks GI as previously scheduled Please call to schedule / confirm appointments Physical Exam: GEN: Alert, NAD CV: Regular rate and rhythm, no edema Pulm: Nonlabored respirations on 2L NC at rest, clear bilaterally ABD: soft, mild tenderness, nondistended Neuro: Normal speech, normal affect Vital Signs/Physical Exam: Temp Pulse Resp BP Pulse Ox 97.8 F 71 18 116/76 98 10/16/24 04:00 10/16/24 04:00 10/16/24 05:27 10/16/24 04:00 10/16/24 05:27 Laboratory Data at Discharge: WBC 10.70 thou/uL (4.3-10.9) 10/15/24 07:20 Hgb 10.8 g/dL (12.0-15.0) L 10/15/24 07:20 Hct 34.2 % (36.0-45.0) L 10/15/24 07:20 Plt Count 467 thou/uL (152-406) H 10/15/24 07:20 PT 12.1 SECONDS (9.4-12.5) 10/12/24 06:30 INR 1.08 10/12/24 06:30 APTT 35.3 SECONDS (24.3-36.9) 10/06/24 17:42 Sodium 140 mEq/L (136-145) 10/16/24 05:19 Potassium 4.0 mEq/L (3.5-5.1) 10/16/24 05:19 BUN 21 mg/dL (7-18) H 10/16/24 05:19 Creatinine 0.45 mg/dL (0.55-1.02) L 10/16/24 05:19 Glucose 151 mg/dL (74-106) H 10/16/24 05:19 Phosphorus 2.9 mg/dL (2.5-4.9) 10/13/24 03:50 Magnesium 2.1 mg/dL (1.6-2.4) 10/15/24 07:20 Total Bilirubin 0.2 mg/dL (0.2-1.0) 10/07/24 05:18 AST 27 U/L (15-37) 10/07/24 05:18 ALT 23 U/L (13-56) 10/07/24 05:18 Alkaline Phosphatase 170 U/L (45-117) H D 10/07/24 05:18 Home Medications: RX: Nicotine [Nicoderm*] 21 mg TD DAILY #30 patch 08/19/23 RX: Budesonide [Pulmicort*] 0.5 mg NEB BIDRESP #60 amp 09/08/24 RX: Pantoprazole [Protonix Tab*] 40 mg PO ACB #30 tab 09/08/24 RX: Potassium Oral Tab [Klor-Con 10 mEq Tab*] 10 meq PO DAILY #30 tab 09/08/24 RX: Spironolactone [Aldactone*] 25 mg PO DAILY #30 tab 09/08/24 RX: Pantoprazole Sodium [Protonix] 40 mg PO BID 10/14/24 RX: Alprazolam [Xanax] 1 tab PO BEDTIME PRN #5 tab 10/16/24 RX: Gabapentin 1 cap PO TID 30 Days #90 cap 10/16/24 RX: predniSONE [Deltasone*] 10 mg PO BID 14 Days #28 tab 10/16/24 New Medications: RX: predniSONE [Deltasone*] 10 mg PO BID 14 Days #28 tab RX: Gabapentin 1 cap PO TID 30 Days #90 cap RX: Alprazolam [Xanax] 1 tab PO BEDTIME PRN #5 tab PRN Reason: Anxiety Physician Discharge Instructions: Physician discharge instructions: Patient presented with worsening shortness of breath, cough, weakness, fever, chills for 2-3 days secondary to chronic nonspecific interstitial pneumonia per pulmonology. Chest xray on admission noted moderate bilateral pulmonary opacities concerning for pneumonia. CTA chest was negative for PE, noted mod-marked bilateral predominantly groundglass opacities likely infection/pneumonitis vs pulmonary edema. Blood cultures were without growth. Patient received steroids, nebs while hospitalized in addition to completing 5 days of empiric IV cefepime / vanc (10/07-10/11) and had improvement of her symptoms. Dr. Walker, [employer] was consulted and recommended bronchoscopy to further evaluate, which was performed on 10/15 without complications. Repeat Chest xray 1/2/25 noted significant improvement in bilateral opacities. Patient was feeling better, breathing more comfortably, afebrile without leukocy tosis for several days after completing antibiotics, cough improved, and was deemed stable for discharge. During her hospitalization, she reported dealing with some intermittent abdominal pain, unchanged for several months. She denied any constipation or diarrhea. Patient reports following up with GI at [facility] and has an upcoming follow up appointment for endoscopy. No further work up. Follow up with GI as previously planned. Medications: Prednisone 10mg twice daily x2 weeks. 1 month Refill sent for Gabapentin 300 mg three times a day. Xanax 5 pills as needed for anxiety. Continue other home medications as previously prescribed. Follow up with PCP for further refills. Follow up: PCP 3-5 days Pulmonology 2 weeks GI as previously scheduled Please call to schedule / confirm appointments Followup: Edu Anaya DO, DO [Primary Care Provider] - Time spent managing pt's care (in minutes): 45
[2024-10-16 10:03] VITALS: O2SAT 98
== END 2024-10-16 12:06 | disposition home or self-care (01) | DRG 196 ==
LOC: ER 16:08 → ERHOLD 21:44 → 4TH 23:23 → 3RD-ICU 10-09 00:44 → 2ND 10-11 21:22
PROVIDERS: ADMIT Family Medicine; ATTEND Hospitalist
PROC: 02HV33Z Insertion of Infusion Device into Superior Vena Cava, Percutaneous Approach (ICD-10-PCS; 2024-10-09)
PROC: 5A09457 Assistance with Respiratory Ventilation, 24-96 Consecutive Hours, Continuous Positive Airway Pressure (ICD-10-PCS; 2024-10-09)
PROC: 4A033R1 Measurement of Arterial Saturation, Peripheral, Percutaneous Approach (ICD-10-PCS; 2024-10-09)
PROC: 3E04329 Introduction of Other Anti-infective into Central Vein, Percutaneous Approach (ICD-10-PCS; 2024-10-09)
PROC: 0B9C7ZX Drainage of Right Upper Lung Lobe, Via Natural or Artificial Opening, Diagnostic (ICD-10-PCS; 2024-10-15)
PROC: 0BB68ZX Excision of Right Lower Lobe Bronchus, Via Natural or Artificial Opening Endoscopic, Diagnostic (ICD-10-PCS; 2024-10-15)
PROC: 0BB48ZX Excision of Right Upper Lobe Bronchus, Via Natural or Artificial Opening Endoscopic, Diagnostic (ICD-10-PCS; 2024-10-15)
PROC: 0B9F7ZX Drainage of Right Lower Lung Lobe, Via Natural or Artificial Opening, Diagnostic (ICD-10-PCS; principal; 2024-10-15 12:00)
DX: J84.111 Idiopathic interstitial pneumonia, not otherwise specified (principal); J96.01 Acute respiratory failure with hypoxia; J96.02 Acute respiratory failure with hypercapnia; E44.0 Moderate protein-calorie malnutrition; F41.9 Anxiety disorder, unspecified; F17.200 Nicotine dependence, unspecified, uncomplicated; I10 Essential (primary) hypertension; K21.9 Gastro-esophageal reflux disease without esophagitis; R00.0 Tachycardia, unspecified; R53.81 Other malaise; Z98.84 Bariatric surgery status; G89.4 Chronic pain syndrome; Z68.22 Body mass index [BMI] 22.0-22.9, adult; J84.9 Interstitial pulmonary disease, unspecified; U09.9 Post COVID-19 condition, unspecified
CPT/HCPCS: 36415; 36600; 71045; 71275; 76000; 80048; 80053; 80202; 80307; 81001; 81025; 82805; 83605; 83735; 84100; 84132; 85025; 85610; 85730; 87015; 87040; 87102; 87116; 87206; 87804; 87807; 87811; 88108; 88305; 88312; 93005; 94640; 94660; 94760; 99285; J0692; J1650; J1940; J2003; J2270; J2371; J2704; J2919; J3010; J3430; J3480; J7030; J7040; J7050; J7512; J7613; J7644; Q9967

== ENCOUNTER 2024-11-17 21:04 | Inpatient (IN) | payer OTHER ==
--- NOTE | 2024-11-17 22:21 | RAD REPORT ---
EXAMINATION: US LOWER EXTREMITY VENOUS DOPPLER BILATERAL CLINICAL INDICATION: Female, 44 years old.SWELLING TECHNIQUE: Complete bilateral duplex sonography of the lower extremity veins was performed. The exami nation included compression for vein patency, color Doppler imaging and flow augmentation in response to distal compression of the distal external iliac, common femoral, femoral, popliteal, tiffany james, tibial and great saphenous veins. [id number]. COMPARISON: 06/19/2023 FINDINGS: Duplex sonography imaging demonstrates all deep examined to be fully compressible with spontaneous, p hasic and augmented flow bilaterally. IMPRESSION: No evidence of deep venous thrombosis seen in either lower extremity.
[2024-11-17 23:42] LABS: Absolute Basophils 0.1 K/uL (0-0.5); Absolute Eosinophils 0.2 K/uL (0-0.5); Absolute Lymphocytes (CBC) 1.4 K/uL (0.7-4.9); Absolute Monocytes 0.3 K/uL (0.1-1.3); Absolute Neutrophil 5.2 K/uL (1.8-8.0); Basophils % 0.9 % (0-1.3); Eosinophils % 2.2 % (0-4.4); Hematocrit 36.2 % (36.0-45.0); Hemoglobin 11.6 g/dL (12.0-15.0); Lymphocytes % 19.2 % (15.3-44.8); MCH 27.4 pg (27.0-35.0); MCHC 32.2 g/dL (32.0-36.0); MCV 85.1 fL (80-100); Monocytes % 4.5 % (3.3-12.3); Neutrophils % 73.2 % (41.7-73.7); Nucleated Red Blood Cells % 0.1 % (0-0); Platelets 275 thou/uL (152-406); RBC Red Blood Cell Count 4.25 M/uL (3.86-4.86); Red Cell Distribution Width 20.3 % (12.1-15.2)
[2024-11-17 23:54] LABS: PT Prothrombin Time 12.2 SECONDS (9.4-12.5); PTT, Activated Partial Thromb 36.3 SECONDS (24.3-36.9); Protime INR 1.16
[2024-11-18] LABS: Albumin 2.5 g/dL (3.4-5.0); Albumin/Globulin Ratio 0.7 (1.1-1.8); Alkaline Phosphatase 115 U/L (45-117); Anion Gap 3.7 mEq/L (5.0-15.0); BUN Blood Urea Nitrogen 8 mg/dL (7-18); Bicarbonate 27 mEq/L (21-32); Globulin 3.8 g/dL (2.3-3.5); Glomerular Filtration Rate 114 ml/min (=/>90); Glucose Level 110 mg/dL (74-106); Protein, Total 6.3 g/dL (6.4-8.2); Sodium Level 142 mEq/L (136-145)
[2024-11-18 00:04] LABS: SARS-CoV-2 Antigen CONTROL BLUE LINE VIS/BG OK; SARS-CoV-2 Antigen Rapid Res Negative (Negative)
[2024-11-18] MEDS ORDERED: IPRATROPIUM BROM 0.5MG/2.5ML ONE ×3 (00:05→21:32)
[2024-11-18] MEDS ORDERED: ALBUTEROL 2.5 MG/3 ML NEB SOL ONE (00:05)
[2024-11-18 00:06] LABS: ALT/SGPT < 14 U/L (13-56); AST/SGOT 23 U/L (15-37); Bilirubin Total < 0.2 mg/dL (0.2-1.0); Potassium 3.7 mEq/L (3.5-5.1)
[2024-11-18] MEDS ORDERED: MAGNESIUM SULFATE 1 gm IVPB 1 GM/100 ML BAG IV ONE (00:06)
[2024-11-18] MEDS ORDERED: METHYLPREDNISOLONE 125 MG INJ ONE ×3 (00:06→19:14)
[2024-11-18 00:32] LABS: Anisocytosis 1+; Blood Morphology Comment NOTED (NOT SEEN); Ovalocytes 1+; Platelet Estimate ADEQ; White Blood Cell Scan OK (OK)
[2024-11-18 01:34] LABS: NT PRO-BNP 47 pg/mL (<125)
--- NOTE | 2024-11-18 05:52 | RAD REPORT ---
EXAM: XR Chest, 1 View CLINICAL HISTORY: The patient is 44 years old and is Female; Cough;Congestion TECHNIQUE: Frontal view of the chest. COMPARISON: XR Chest dated August 12 2023 FINDINGS: LUNGS: Subtle opacity within the bilateral lower lobes is noted. The lungs are otherwise well-inf lated and clear. PLEURAL SPACE: Unremarkable. No pneumothorax. HEART: Unremarkable. No cardiomegaly. MEDIASTINUM: Unremarkable. Normal mediastinal contour. BONES/JOINTS: Unremarkable. No acute fracture. UPPER ABDOMEN: Unremarkable as visualized. IMPRESSION: Findings suggest bilateral infrahilar atelectasis. Electronically signed by: Hailey Mancia MD 11/17/2024 11:57 PM [facility] Due to temporary technical issues with the PACS/[employer] reporting system, reports are being phillip d by the in-house radiologist without review as a courtesy to ensure prompt reporting the interpreting radiologist is fully responsible for the content of the report. Transcribed Date/Time: 11/18/2024 5:51 AM
--- NOTE | 2024-11-18 06:21 | RAD REPORT ---
CT CHEST ANGIOGRAPHY WITH IV CONTRAST CLINICAL INDICATION: Dyspnea COMPARISON: Chest radiograph 11/2024. CT chest 10/06/2024 TECHNIQUE: CT angiogram of the chest was obtained following the administration of intravenous contras t. Multiplanar and 3D MIP reformats were provided. Dose-optimization techniques such as automated exposure control, iterative reconstruction, and mA and/or kV adjustment for patient size was utilized for this examination. FINDINGS: LOWER NECK: Unremarkable. AIRWAYS: Trachea and mainstem bronchi are patent. LUNGS/PLEURA: Diffuse groundglass opacities in both lungs with mosaic attenuation, likely reflecting interstitial pulmonary edema. Several small foci of consolidative opacities, likely representing atelectasis. No discrete mass or nodules. No pleural effusions or pneumothorax. VASCULATURE: No evidence of pulmonary intraluminal filling defects. No evidence of thoracic aortic aneurysm or dissection. MEDIASTINUM/NODES: No pathologic adenopathy. HEART: Mildly prominent heart size. Flattening of heart secondary to pectus excavatum. No pericardial effusion. CHEST WALL: Unremarkable. UPPER ABDOMEN: Unremarkable. BONES: Unremarkable. IMPRESSION: 1. No pulmonary embolism. 2. Interstitial pulmonary edema. Electronically signed by: Nidia Hilton MD 11/18/2024 06:12 AM [facility] Due to temporary technical issues with the PACS/[employer] reporting system, reports are being phillip d by the in-house radiologist without review as a courtesy to ensure prompt reporting the interpreting radiologist is fully responsible for the content of the report. Transcribed Date/Time: 11/18/2024 6:21 AM
[2024-11-18] MEDS ORDERED: ONDANSETRON 4 MG/2 ML VIAL ONE (06:25)
[2024-11-18] MEDS ORDERED: MORPHINE 4 MG/ML SYR ONE ×2 (06:26→15:00)
--- NOTE | 2024-11-18 06:28 | EDPHYS ---
Physician Documentation [facility] Name: Ceci Ward Age: 44 yrs Sex: Female : 1980 Arrival Date: 11/17/2024 Time: 21:04 Bed 23 Private MD: ED Physician Pepe Burden HPI: 11/17 23:30 This 44 yrs old Female presents to ER via Ambulatory with complaints of Shortness Of kb Breath, Dizziness. 23:30 Pt is a 44 year old female who presents for cough, congestion, wheezing, low oxygen kb levels and dizziness that started 4 days ago. States she has had pneumonia several times in the past and this feels the same. States she was hospitalized here 3 weeks ago for pneumonia. Pt reports oxygen has been around 90-92% on room air at rest and drops into the 70s with any exertion. 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 - Infectious Disease History:: Denies. - Social history:: Smoking status: Patient reports the use of cigarette tobacco products, smokes one pack cigarettes per day. ROS: 23:30 Constitutional: As per HPI kb Exam: 23:08 Constitutional: This is a well developed, well nourished patient who is awake, alert, kb and in no acute distress. Head/Face: Normocephalic, atraumatic. ENT: Moist Mucous membranes Skin: Warm, dry with normal turgor. Normal color. MS/ Extremity: Pulses equal, no cyanosis. Neurovascular intact. Full, normal range of motion. Neuro: Awake and alert, GCS 15, oriented to person, place, time, and situation. 23:08 Cardiovascular: Rate: tachycardic, 23:08 ECG was reviewed by the Attending Physician. 23:08 Respiratory: Breath sounds: wheezing: inspiratory expiratory that is moderate, is heard diffusely, Vital Signs: 21:21 BP 113 / 78; Pulse 115; Resp 19; Temp 98.1; Pulse Ox 95% ; Weight 54.43 kg; Height 5 me1 ft. 4 in. ; Pain 10/10; 22:58 BP 113 / 87; Pulse 110; Resp 24 S; Temp 98.2; Pulse Ox 92% on R/A; aa10 11/18 00:09 BP 105 / 72; Pulse 95; Resp 22 S; Temp 98; Pulse Ox 92% on R/A; aa10 02:10 BP 90 / 66; Pulse 87; Resp 12 S; Temp 98; Pulse Ox 96% on 2 lpm NC; aa10 04:16 BP 89 / 57; Pulse 80; Resp 11 S; Temp 98; Pulse Ox 95% on 2 lpm NC; aa10 05:14 BP 85 / 61; Pulse 80; Resp 18 S; Temp 97.8; Pulse Ox 94% on 2 lpm NC; aa10 06:28 BP 99 / 74; Pulse 90; Resp 20; Temp 98; Pulse Ox 97% on 2 lpm NC; aa10 11/19 08:14 Temp 97.4(O); cc6 11/17 21:21 Body Mass Index 20.60 (54.43 kg, 162.56 cm) me1 11/17 21:21 Pain Scale: Adult me1 MDM: 11/17 21:38 Medical Screening Exam initiated kb 11/18 00:23 Differential diagnosis: asthma, pneumonia, hypoxia. Data reviewed: vital signs, nurses kb notes. Consideration of Admission/Observation Patient was admitted/placed on observation. Escalation of care including admission/observation considered. 00:38 Management of patient was discussed with the following: Hospitalist: Dr Manzanares, wants CT kb to rule out PE. 00:52 Historians other than the Patient: Spouse/Significant Other: significant other. kb Counseling: I had a detailed discussion with the patient and/or guardian regarding the historical points, exam findings, and any diagnostic results supporting the discharge/admit diagnosis, lab results, radiology results, the need for further work-up and treatment in the hospital. Transition of care: After a detail discussion of the patient's case, care is transferred to Pepe Burden MD. 06:25 Antibiotic administration: ABX provided. sp4 06:26 ED course: Patient appropriate for admission to [facility]. ED course: CT chest PE sp4 protocol - IMPRESSION: 1. No pulmonary embolism. 2. Interstitial pulmonary edema. Electronically signed by: Nidia Hilton MD 11/18/2024 06:12 . 0204 21:54 Order name: Blood Culture Adult (2) kb 11/17 21:54 Order name: CBC with Diff; Complete Time: 00:33 kb 11/17 21:54 Order name: CMP; Complete Time: 06:14 kb 11/17 21:54 Order name: Lactate w/ 2H reflex if indic.; Complete Time: 00:04 kb 11/17 21:54 Order name: Protime (+inr); Complete Time: 00:04 kb 11/17 21:54 Order name: Ptt, Activated; Complete Time: 00:04 kb 11/17 21:54 Order name: Flu; Complete Time: 00:04 kb 11/17 21:54 Order name: SARS-COV-2 Antigen Rapid; Complete Time: 00:05 kb 11/17 23:05 Order name: Glucose, Ancillary Testing; Complete Time: 23:06 EDMS 11/17 23:46 Order name: CBC Smear Scan; Complete Time: 00:33 EDMS 11/18 00:37 Order name: RSV; Complete Time: 06:14 kb 11/18 00:46 Order name: NT PRO-BNP; Complete Time: 06:14 EDMS 11/18 06:46 Order name: Urinalysis w/ reflexes EDMS 11/18 06:46 Order name: CBC with Automated Diff EDMS 11/18 06:46 Order name: CBC with Automated Diff EDMS 11/18 06:46 Order name: Comprehensive Metabolic Panel EDMS 11/18 06:46 Order name: Comprehensive Metabolic Panel EDMS 11/18 06:46 Order name: Magnesium EDMS 11/18 06:46 Order name: Magnesium EDMS 11/18 06:46 Order name: NT PRO-BNP EDMS 11/18 06:46 Order name: NT PRO-BNP EDMS 11/18 07:46 Order name: Sputum Culture EDMS 11/18 08:16 Order name: Vancomycin Level Trough EDMS 11/18 08:17 Order name: Procalcitonin; Complete Time: 14:12 EDMS 11/19 09:54 Order name: CBC Smear Scan EDMS 11/17 21:54 Order name: Chest Single View XRAY; Complete Time: 12:57 kb 11/17 21:54 Order name: US Extremity Venous W Compression Marshall; Complete Time: 22:25 kb 11/18 00:37 Order name: CT Chest For PE Angio; Complete Time: 12:57 kb 11/18 06:46 Order name: CONS Physician Consult EDMS 11/18 08:05 Order name: Dietitian Consult EDID 11/17 21:54 Order name: Accucheck; Complete Time: 22:54 kb 11/17 21:54 Order name: Cardiac monitoring; Complete Time: 22:45 kb 11/17 21:54 Order name: EKG - Nurse/Tech; Complete Time: 22:59 kb 11/17 21:54 Order name: IV Saline Lock - Large Bore; Complete Time: 22:45 kb 11/17 21:54 Order name: Labs collected and sent; Complete Time: 22:45 kb 11/17 21:54 Order name: O2 Per Protocol; Complete Time: 22:45 kb 11/17 21:54 Order name: O2 Sat Monitoring; Complete Time: 22:45 kb 11/17 21:54 Order name: Vital Signs; Complete Time: 22:45 kb 11/18 00:07 Order name: Vital Signs; Complete Time: 00:08 kb EC/04 23:08 Rate is 105 beats/min. Rhythm is regular. QRS [place] is Normal. GA interval is normal at kb 140 msec. QRS interval is normal at 72 msec. QT interval is normal at 425 msec. Administered Medications: 11/18 00:07 Drug: Magnesium Sulfate IVPB 1 grams IVPB once over 1 hrs Route: IVPB; Infused Over: 1 aa10 hrs; Site: left forearm; 04:32 Follow up: Response: No adverse reaction; Marked relief of symptoms aa10 00:07 Drug: MethylPrednisoLONE IVP 125 mg IVP once Route: IVP; Site: left forearm; aa10 04:31 Follow up: Response: No adverse reaction; Marked relief of symptoms aa10 00:08 Drug: Albuterol Inhalation 2.5 mg Inhalation once Route: Inhalation; aa10 04:31 Follow up: Response: No adverse reaction; Marked relief of symptoms aa10 00:08 Drug: Ipratropium Inhalation Aerosol 0.5 mg Inhalation once Route: Inhalation; aa10 04:32 Follow up: Response: No adverse reaction; Marked relief of symptoms aa10 06:27 Drug: morphine IVP or IV 4 mg IVP once over 4 mins Route: IVP; Infused Over: 4 mins; aa10 Site: left forearm; 06:54 Follow up: Response: No adverse reaction; Marked relief of symptoms aa10 06:27 Drug: Ondansetron IVP 4 mg IVP once; over 2 minutes Route: IVP; Site: left forearm; aa10 06:55 Follow up: Response: No adverse reaction; Marked relief of symptoms aa10 06:27 Drug: NS 0.9% IV 1000 ml IV at 1000 ml once; to be given as a bolus over 60 minutes aa10 Route: IV; Rate: 1000 ml; Site: left femoral; 06:38 Drug: vancoMYCIN IVPB 1 grams IVPB once over 2 hrs Route: IVPB; Infused Over: 2 hrs; aa10 Site: left forearm; 06:38 Drug: Cefepime IVPB 2 grams IVPB at 200 ml/hr once over 30 mins; (mix in NS 100 mL) aa10 Route: IVPB; Rate: 200 ml/hr; Infused Over: 30 mins; Site: left forearm; Point of Care Testing: Blood Glucose: 11/17 22:56 Blood Glucose: 106 mg/dL; Test Strip: Lot #: [id number]; Expiration: 12/03/2025; aa10 Ranges: Critical Glucose Levels:Adult <50 mg/dl or >400 mg/dl <40 mg/dl or >180 mg/dl Disposition: 11/18 06:26 Co-signature as Attending Physician, Pepe Burden MD I agree with the assessment sp4 and plan of care. I reviewed the patient's care provided by Advanced Practice Provider \T\ agree w/ the diagnosis \T\ care plan. I personally saw the pt \T\ performed a substantive portion of the visit, incldng all aspects of the (History/Exam/Medical Decision Making). 17:04 Chart complete. kb Disposition Summary: 11/18/24 06:28 Hospitalization Ordered Notes: Hospitalization Status: Inpatient Admission sp4 Provider: Aysha Arguello spEdmond Condition: Serious sp4 Problem: new sp4 Symptoms: have improved sp4 Bed/Room Type: Standard sp4 Location: [facility] ER HOLD(11/18/24 06:28) lg3 Room Assignment: ERHOLD-(11/18/24 06:28) lg3 Diagnosis - Bilateral interstitial pulmonary edema, bilateral multifocal pneumonia, Hypoxemia sp4 Forms: - Medication Reconciliation Form sp4 - SBAR form sp4 - Leadership Thank You Letter sp4 Signatures: Dispatcher [employer] EDYulia Matta, MOLD CLOSER HELPER-C MOLD CLOSER HELPER-Mechelle Aragon RN RN lg3 Pepe Burden MD MD sp4 Ruma Parada RN RN me1 Matthew Yi RN RN aa10 Corrections: (The following items were deleted from the chart) 11/17 21:24 21:23 PSHx: abdominal; me1 me1 21:54 21:54 BLOOD CULTURE*+BA.LAB.BRZ ordered. EDMS EDMS 21:54 21:54 CBC+H.LAB.BRZ ordered. EDMS EDMS 21:54 21:54 COMPREHENSIVE METABOLIC PANEL+C.LAB.BRZ ordered. EDMS EDMS 21:54 21:54 LACTATE+C.LAB.BRZ ordered. EDMS EDMS 21:54 21:54 PROTIME (+INR)+COAG.LAB.BRZ ordered. EDMS EDMS 21:54 21:54 PTT, ACTIVATED+COAG.LAB.BRZ ordered. EDMS EDMS 21:54 21:54 Influenza Screen (A \T\ B)+BA.LAB.BRZ ordered. EDMS EDMS 21:54 21:54 SARS-COV-2 Antigen Rapid+I.LAB.BRZ ordered. EDMS EDMS 21:55 21:54 Chest Single View+RAD.RAD.BRZ ordered. EDMS EDMS 21:55 21:55 Extrem Venous W Compression Marshall+US.RAD.BRZ ordered. EDID EDMS 11/18 00:37 00:37 Chest For PE Angio+CT.RAD.BRZ ordered. EDMS EDMS 00:38 00:38 Respiratory Syncytial Virus Ag+BA.LAB.BRZ ordered. EDID EDMS 00:42 00:16 Misc. Order ordered. kb kb 00:42 11/17 23:30 Pt is a 44 year old female who presents for cough, congestion, wheezing, kb low oxygen levels and dizziness that started 4 days ago. States she has had pneumonia several times in the past and this feels the same. States she was hospitalized here 3 weeks ago for pneumonia. . kb 11/18 00:45 00:37 PROBNP+C.LAB.SUZIZ ordered. EDMS EDMS 06:28 Telemetry/MedSurg (Inpatient) sp4 lg3 : 06:28 sp4 lg3
--- NOTE | 2024-11-18 06:28 | ER ---
Nurse's Notes [facility] Name: Ceci Ward Age: 44 yrs Sex: Female : 1980 Arrival Date: 11/17/2024 Time: 21:04 Bed 23 Private MD: Diagnosis: Bilateral interstitial pulmonary edema, bilateral multifocal pneumonia, Hypoxemia Presentation: 11/17 21:21 Chief complaint: Patient states: she just got out of [facility] for pna. Feels like its me1 coming back. C/o sob, dizziness, swelling to BLE. Coronavirus screen: Vaccine status: Patient reports being unvaccinated. Ebola Screen: No symptoms or risks identified at this time. Initial Sepsis Screen: Does the patient meet any 2 criteria? HR > 90 bpm. Risk Assessment: Do you want to hurt yourself or someone else? Patient reports no desire to harm self or others. Onset of symptoms is unknown. 21:21 Method Of Arrival: Ambulatory vt1 21:21 Acuity: JES 3 me1 11/18 00:20 Initial Sepsis Screen: Does the patient have a suspected source of infection? No. aa10 Patient's initial sepsis screen is negative. Triage Assessment: 11/17 21:25 General: Appears in no apparent distress. slender, unkempt, well developed, Behavior is me1 calm, cooperative, appropriate for age. Pain: Complains of pain in right foot and left foot Pain does not radiate. Pain currently is 10 out of 10 on a pain scale. Quality of pain is described as aching, Pain began gradually, Is continuous. EENT: No signs and/or symptoms were reported regarding the EENT system. Neuro: Level of Consciousness is awake, alert, obeys commands, Oriented to person, place, time, situation, Appropriate for age. Cardiovascular: Patient's skin is warm and dry. Respiratory: Reports shortness of breath on exertion cough that is persistent Airway is patent Trachea midline Respiratory effort is even, unlabored, Respiratory pattern is regular, symmetrical, Onset: The symptoms/episode began/occurred at an unknown time. the patient has mild shortness of breath. GI: No signs and/or symptoms were reported involving the gastrointestinal system. : No signs and/or symptoms were reported regarding the genitourinary system. Derm: Skin is normal. Musculoskeletal: Swelling present in right leg and left leg Reports pain in right foot and left foot. 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 - Infectious Disease History:: Denies. - Social history:: Smoking status: Patient reports the use of cigarette tobacco products, smokes one pack cigarettes per day. Screenin/05 00:20 [facility] ED Fall Risk Assessment (Adult) History of falling in the last 3 months, aa10 including since admission No falls in past 3 months (0 pts) Confusion or Disorientation No (0 pts) Intoxicated or Sedated No (0 pts) Impaired Gait No (0 pts) Mobility Assist Device Used No (0 pt) Altered Elimination No (0 pt) Score/Fall Risk Level 0 - 2 = Low Risk Oriented to surroundings, Maintained a safe environment, Educated pt \T\ family on fall prevention, incl call for assistance when getting out of bed, Assessed \T\ reinforced patient's understanding of fall precautions, Provided non-skid footwear, Hourly rounding (assess needs \T\ fall precautionary measures) done. Abuse screen: Denies threats or abuse. Denies injuries from another. Nutritional screening: No deficits noted. Tuberculosis screening: No symptoms or risk factors identified. Assessment: 00:22 Cardiovascular: Rhythm is regular. Respiratory: Airway is patent Breath sounds are aa10 clear bilaterally. 00:45 General: Appears in no apparent distress. comfortable, Behavior is calm, cooperative, aa10 appropriate for age. Pain: Denies pain. Neuro: No deficits noted. Level of Consciousness is awake, alert, obeys commands, Oriented to person, place, time, situation, Appropriate for age Armored Vehicle Officer are equal bilaterally. Cardiovascular: No deficits noted. Capillary refill < 3 seconds. Respiratory: Airway is patent Respiratory effort is labored, pursed lip, Respiratory pattern is. 02:11 Reassessment: Patient appears in no apparent distress at this time. No changes from aa10 previously documented assessment. Patient and/or family updated on plan of care and expected duration. Pain level reassessed. Patient is alert, oriented x 3, equal unlabored respirations, skin warm/dry/pink. 02:11 Reassessment: patient was desaturating while sleeping at 89% of oxygen,she was placed aa10 on nasal canula at 2L/M, saturation went up to 96%. 03:07 Reassessment: patient was transferred to CT scan,she is conscious, oriented and alert, aa10 with GCS of 15/15, she was wheeled out with oxygen 2 l/m. Vital Signs: 11/17 21:21 BP 113 / 78; Pulse 115; Resp 19; Temp 98.1; Pulse Ox 95% ; Weight 54.43 kg; Height 5 me1 ft. 4 in. ; Pain 10/10; 22:58 BP 113 / 87; Pulse 110; Resp 24 S; Temp 98.2; Pulse Ox 92% on R/A; aa10 11/18 00:09 BP 105 / 72; Pulse 95; Resp 22 S; Temp 98; Pulse Ox 92% on R/A; aa10 02:10 BP 90 / 66; Pulse 87; Resp 12 S; Temp 98; Pulse Ox 96% on 2 lpm NC; aa10 04:16 BP 89 / 57; Pulse 80; Resp 11 S; Temp 98; Pulse Ox 95% on 2 lpm NC; aa10 05:14 BP 85 / 61; Pulse 80; Resp 18 S; Temp 97.8; Pulse Ox 94% on 2 lpm NC; aa10 06:28 BP 99 / 74; Pulse 90; Resp 20; Temp 98; Pulse Ox 97% on 2 lpm NC; aa10 11/19 08:14 Temp 97.4(O); cc6 11/17 21:21 Body Mass Index 20.60 (54.43 kg, 162.56 cm) me1 11/17 21:21 Pain Scale: Adult me1 ED Course: 11/17 21:06 Patient arrived in ED. jj6 21:23 Triage completed. me1 21:23 Arm band placed on Patient placed in waiting room. me1 21:37 Yulia De La Torre FNP-C [facility]. kb 21:38 Pepe Burden MD is Attending Physician. kb 22:17 US Extremity Venous W Compression Marshall In Process Unspecified. EDMS 22:26 First set of blood cultures drawn by me. oe 22:32 Matthew Yi, RUBA is Primary Nurse. aa10 22:45 Second set of blood cultures drawn by me. oe 22:50 SARS-COV-2 Antigen Rapid Sent. aa10 22:50 Flu Sent. aa10 22:53 Inserted saline lock: 22 gauge in right hand, using aseptic technique. Blood collected. oe Flushed with 10 mL NS. 22:54 Initial lab(s) drawn, by ED staff, COVID swab sent to lab. Flu and/or RSV swab sent to aa10 lab. 23:07 Chest Single View XRAY In Process Unspecified. EDMS 23:44 Flu Sent. aa10 23:44 SARS-COV-2 Antigen Rapid Sent. aa10 23:44 Blood Culture Adult (2) Sent. aa10 23:44 CMP Sent. aa10 23:44 Lactate w/ 2H reflex if indic. Sent. aa10 23:44 Protime (+inr) Sent. aa10 23:44 Ptt, Activated Sent. aa10 23:59 CBC with Diff Sent. oe 02/ 00:21 Patient has correct armband on for positive identification. Allergy band placed. Fall aa10 risk band placed. Placed in gown. Bed in low position. Call light in reach. Side rails up X2. Provided Education on: about plan of care. 00:22 No provider procedures requiring assistance completed. aa10 01:19 Radiology exam delayed due to IV insertion attempt and/or patient not having sj appropriate IV at this time. 01:30 Inserted saline lock: 22 gauge in right forearm, using aseptic technique. Flushed with oe 10 mL NS. 03:14 CT Chest For PE Angio In Process Unspecified. EDMS 06:27 Aysha Arguello MD is Hospitalizing Provider. sp4 07:17 Patient admitted, IV remains in place. ph Administered Medications: 00:07 Drug: Magnesium Sulfate IVPB 1 grams IVPB once over 1 hrs Route: IVPB; Infused Over: 1 aa10 hrs; Site: left forearm; 04:32 Follow up: Response: No adverse reaction; Marked relief of symptoms aa10 00:07 Drug: MethylPrednisoLONE IVP 125 mg IVP once Route: IVP; Site: left forearm; aa10 04:31 Follow up: Response: No adverse reaction; Marked relief of symptoms aa10 00:08 Drug: Albuterol Inhalation 2.5 mg Inhalation once Route: Inhalation; aa10 04:31 Follow up: Response: No adverse reaction; Marked relief of symptoms aa10 00:08 Drug: Ipratropium Inhalation Aerosol 0.5 mg Inhalation once Route: Inhalation; aa10 04:32 Follow up: Response: No adverse reaction; Marked relief of symptoms aa10 06:27 Drug: morphine IVP or IV 4 mg IVP once over 4 mins Route: IVP; Infused Over: 4 mins; aa10 Site: left forearm; 06:54 Follow up: Response: No adverse reaction; Marked relief of symptoms aa10 06:27 Drug: Ondansetron IVP 4 mg IVP once; over 2 minutes Route: IVP; Site: left forearm; aa10 06:55 Follow up: Response: No adverse reaction; Marked relief of symptoms aa10 06:27 Drug: NS 0.9% IV 1000 ml IV at 1000 ml once; to be given as a bolus over 60 minutes aa10 Route: IV; Rate: 1000 ml; Site: left femoral; 06:38 Drug: vancoMYCIN IVPB 1 grams IVPB once over 2 hrs Route: IVPB; Infused Over: 2 hrs; aa10 Site: left forearm; 06:38 Drug: Cefepime IVPB 2 grams IVPB at 200 ml/hr once over 30 mins; (mix in NS 100 mL) aa10 Route: IVPB; Rate: 200 ml/hr; Infused Over: 30 mins; Site: left forearm; Medication: 00:20 VIS not applicable for this client. aa10 Point of Care Testing: Blood Glucose: 11/17 22:56 Blood Glucose: 106 mg/dL; Test Strip: Lot #: [id number]; Expiration: 12/03/2025; aa10 Ranges: Outcome: 11/18 06:28 Decision to Hospitalize by Provider. sp4 07:16 Admitted to ER Hold. Please see [facility] for further documentation. ph 07:16 Condition: stable 07:16 Instructed on the need for admit, 11/19 10:32 Patient left the ED. cc6 Addendum: 11/27/2024 16:42 Addendum: Other At 0715 on 11/18/2024, NS 1L IV bolus was completed. k b3 Signatures: Dispatcher [employer] EDYulia Matta, TOP CASE ASSEMBLER-C TOP CASE ASSEMBLER-Ckb Madhuri Lopez Patricia, RN RN Sami Schulte Jennifer jj6 Paty Bullard, RN RN kb3 Pepe Burden MD MD sp4 Ruma Parada RN RN me1 Drea England 6 Matthew Yi RN RN aa10 Corrections: (The following items were deleted from the chart) 11/17 21:24 21:23 PSHx: abdominal; me1 me1 11/18 04:17 03:53 BP 86 / 8; Pulse 88bpm; Resp 11bpm; Pulse Ox 94% 2 lpm Nasal Cannula; Temp 98F; aa10 aa10
[2024-11-18] MEDS ORDERED: CEFEPIME 2 GM VIAL ONE ×3 (06:37→21:17)
[2024-11-18] MEDS ORDERED: NA CHLORIDE 0.9% 250 ML ONE ×3 (06:37→21:59)
[2024-11-18] MEDS ORDERED: VANCOMYCIN 1 GM/VIAL ONE ×3 (06:37→21:59)
[2024-11-18] MEDS ORDERED: NA CHLORIDE 0.9% 100 ML ONE ×3 (06:38→21:17)
[2024-11-18] MEDS ORDERED: ONDANSETRON 4 MG/2 ML VIAL IV PRN (06:41)
[2024-11-18] MEDS ORDERED: ACETAMINOPHEN 500 MG TAB PO PRN (06:41)
--- NOTE | 2024-11-18 06:41 | P.HP ---
Certification for Inpatient Patient admitted to: Inpatient With expected LOS: <2 Midnights <Zakiya Roberts - Last Filed: 11/18/24 07:57> Patient History Date of Service: 11/18/24 History of Present Illness: 43 year old female with past medical history of anxiety disorder, nicotine dependence, hypertension, GERD, Gastric ulcers, multiple GI bleeds status post partial gastrectomy and partial small intestine removal, chronic back pain, pneumonia who presents with shortness of breath. She reports home oxygen saturation in the 70s, she reports wheezing, shortness of breath worse last night. She reports nonproductive cough she reports being admitted for pneumonia 1 month ago., Plan to admit for acute hypoxic respiratory failure secondary to multifocal pneumonia. Pulmonary to consult - Past Medical/Surgical History Diabetic: No -: Anxiety disorder -: Nicotine dependence -: Hypertension -: GERD -: Chronic back pain -: Pneumonia -: MRSA in 2020 -: stomach ulcers -: BTL -: Partial stomach removed -: Colon resection - Family History Father -: Cancer Notes: pelvic cancer Mother -: Cancer Notes: lung cnacer, brain cancer Brother Notes: SIDS - Social History Alcohol use: No CD- Drugs: No Caffeine use: No <Zakiya Roberts - Last Filed: 11/18/24 07:57> Date of Service: 11/18/24 <Aysha Arguello - Last Filed: 11/19/24 05:33> Allergies codeine [From Tylenol-Codeine #3] Allergy (Verified 08/10/23 13:10) Rash propoxyphene napsylate [From Darvocet-N 100] Allergy (Verified 03/15/13 14:12) Itching/Hives/Rash Home Medications: Nicotine [Nicoderm*] 21 mg TD DAILY #30 patch 08/19/23 Budesonide [Pulmicort*] 0.5 mg NEB BIDRESP #60 amp 09/08/24 Pantoprazole [Protonix Tab*] 40 mg PO ACB #30 tab 09/08/24 Potassium Oral Tab [Klor-Con 10 mEq Tab*] 10 meq PO DAILY #30 tab 09/08/24 Spironolactone [Aldactone*] 25 mg PO DAILY #30 tab 09/08/24 Pantoprazole Sodium [Protonix] 40 mg PO BID 10/14/24 Alprazolam [Xanax] 1 tab PO BEDTIME PRN #5 tab 10/16/24 Gabapentin 1 cap PO TID 30 Days #90 cap 10/16/24 predniSONE [Deltasone*] 10 mg PO BID 14 Days #28 tab 10/16/24 Review of Systems 10-point ROS is otherwise unremarkable <Zakiya Roberts - Last Filed: 11/18/24 07:57> Physical Examination - Physical Exam General: Alert, Oriented x3, Mild distress HEENT: Atraumatic, Normocephalic, PERRLA Neck: 2+ carotid pulse no bruit, JVD not distended, No Thyromegaly Respiratory: Normal air movement, Expiratory wheezes, Inspiratory wheezes Cardiovascular: Normal pulses, Regular rate/rhythm, Normal S1 S2 Gastrointestinal: Normal bowel sounds, Soft and benign Musculoskeletal: No swelling, No contractures, No erythema Integumentary: Other (Alopecia,) Neurological: Normal speech, Normal strength at 5/5 x4 extr, Sensation intact - Studies Laboratory Data (last 24 hrs) 11/17/24 11/17/24 11/17/24 22:26 22:26 22:26 WBC 7.10 Hgb 11.6 L Hct 36.2 Plt Count 275 PT 12.2 INR 1.16 APTT 36.3 Sodium 142 Potassium 3.7 BUN 8 Creatinine 0.57 Glucose 110 H Total Bilirubin < 0.2 L AST 23 ALT < 14 Alkaline Phosphatase 115 Microbiology Data (last 24 hrs): 11/18/24 01:10 Nasopharnyx Respiratory Syncytial Virus Ag Scrn - Final 11/17/24 22:47 Nasopharnyx Influenza Type A Antigen Screen - Final 11/17/24 22:47 Nasopharnyx Influenza Type B Antigen Screen - Final <Zakiya Roberts - Last Filed: 11/18/24 07:57> - Studies Microbiology Data (last 24 hrs): 11/18/24 01:10 Nasopharnyx Respiratory Syncytial Virus Ag Scrn - Final 11/17/24 22:47 Nasopharnyx Influenza Type A Antigen Screen - Final 11/17/24 22:47 Nasopharnyx Influenza Type B Antigen Screen - Final <Aysha Arguello - Last Filed: 11/19/24 05:33> Assessment and Plan - Plan Assessment and Plan - Plan Acute hypoxic and hypercapnic respiratory failure secondary to multifocal pneumonia Home O2 dependent Pulmonary consult CT findings noted was negative for PE consistent with multifocal pneumonia Started on IV antibiotic Bronchodilators, steroids Monitor closely in telemetry Frequent admissions for pneumonia, infectious disease consult Chronic pain Pain management Monitor closely Continue home medications and titrate as needed Moderate protein calorie malnutrition Deconditioned and debilitated May consult auditor in a.m. History of anxiety disorder Chronic back pain History of nicotine dependence History of hypertension History of GERD and gastric ulcers Continue home medication nicotine patch DVT PPx Lovenox GI, PPI Full code Discharge Plan: Home - Advance Directives Does patient have a Living Will: No Does patient have a Durable POA for Healthcare: No - Code Status/Comfort Care Code Status: Full Code Critical Care: No Time Spent Managing Pts Care (In Minutes): 55 <Zakiya Roberts - Last Filed: 11/18/24 07:57> Date of Service: 11/18/24 PATIENT WAS SEEN AND EXAMINED. EVENTS OF THE LAST 24 HOURS HAVE BEEN NOTED. SPOKE WITH WITH RUTHIE REGARDING PATIENT'S CLINICAL PICTURE AFTER EVALUATING AND EXAMINING THE PATIENT INDEPENDENTLY. I PERFORMED A SUBSTANTIAL PART OF THE MDM DURING THIS PATIENT'S CARE TODAY. I PERSONALLY MADE OR APPROVED THE DOCUMENTED MANAGEMENT PLAN AND ACKNOWLEDGE ITS RISK OF COMPLICATIONS. I AGREE WITH THE FINDINGS AND DOCUMENTATION PROVIDED IN THE RUTHIE'S NOTES. PATIENT HAS SIGNIFICANT INTERSTITIAL LUNG DISEASE; PATIENT IMPROVED WITH STEROID. HOWEVER, PATIENT IS CUSHINGOID AND HER LAST PATHOLOGY SHOWED ORGANIZING PNEUMONIA; PATIENT WILL NEED ANTI-INFLAMMATORIES AND ANTIBIOTICS. PLAN TO DISCHARGE PATIENT IN A.M.. <Aysha Arguello - Last Filed: 11/19/24 05:33>
[2024-11-18] MEDS ORDERED: ALBUTEROL 2.5 MG/3 ML NEB SOL NEB PRN (07:41)
[2024-11-18] MEDS: NA CHLORIDE 0.9% 1,000 ML IV SCH (08:00)
[2024-11-18] MEDS: VANCOMYCIN 1 GM in NA CHLORIDE 0.9% 250 ML IVPB SCH ×2 (08:00→14:00)
[2024-11-18] MEDS: IPRATROPIUM BROM 0.5MG/2.5ML NEB SCH (09:00)
[2024-11-18] MEDS ORDERED: HYDROCODONE/APAP 5/325 MG TAB ONE ×3 (09:49→21:25)
[2024-11-18] MEDS ORDERED: NA CHLORIDE 0.9% 1,000 ML ONE (09:49)
[2024-11-18] MEDS: HYDROCODONE/APAP 5/325 MG TAB PO PRN (10:00)
[2024-11-18 11:23] VITALS: BMI 20.5
--- NOTE | 2024-11-18 11:28 | EKG ---
Test Date: 2024-11-17 Test Time: 23:05:29 Security Supervisor: NEYDA MEASUREMENT RESULTS: Intervals: Rate: 105 NJ: 140 QRSD: 72 QT: 322 QTc: 425 Eros: P: 59 NJ: 140 QRS: 88 T: 60 INTERPRETIVE STATEMENTS: Sinus tachycardia Possible Left atrial enlargement Borderline ECG Compared to ECG 10/06/2024 18:47:20 Left posterior fascicular block no longer present Myocardial infarct finding no longer present Electronically Signed On 11-18-24 11:27:22 WEIGH MACHINE OPERATOR by Benji Zuleta
[2024-11-18] MEDS: METHYLPREDNISOLONE 125 MG INJ IV SCH (12:00)
[2024-11-18] MEDS: CEFEPIME 2 GM in NA CHLORIDE 0.9% 100 ML IV SCH (14:00)
[2024-11-18] MEDS: MORPHINE 4 MG/ML SYR IV ONE (14:57)
[2024-11-18] MEDS ORDERED: NICOTINE 21 MG/PAT TD ONE (16:55)
[2024-11-18] MEDS: NICOTINE 21 MG/PAT TD SCH (17:00)
[2024-11-18] MEDS: MORPHINE 2 MG/ML SYR IV ONE (19:28)
[2024-11-18] MEDS ORDERED: MORPHINE 2 MG/ML SYR ONE (19:31)
[2024-11-18] MEDS ORDERED: ALPRAZOLAM 1 MG TABLET ONE (21:25)
[2024-11-18] MEDS: ALPRAZOLAM 1 MG TABLET PO PRN (21:27)
[2024-11-19] MEDS ORDERED: METHYLPREDNISOLONE 125 MG INJ ONE ×2 (01:00→06:32)
[2024-11-19] MEDS ORDERED: IPRATROPIUM BROM 0.5MG/2.5ML ONE ×2 (01:34→08:35)
[2024-11-19] MEDS ORDERED: HYDROCODONE/APAP 5/325 MG TAB ONE ×2 (03:36→08:22)
[2024-11-19] MEDS ORDERED: NA CHLORIDE 0.9% 100 ML ONE (05:12)
[2024-11-19] MEDS ORDERED: CEFEPIME 2 GM VIAL ONE (05:12)
[2024-11-19 05:21] LABS: Absolute Lymphocytes (CBC) 0.5 K/uL (0.7-4.9); Absolute Monocytes 0.3 K/uL (0.1-1.3); Absolute Neutrophil 7.8 K/uL (1.8-8.0); Basophils % 0.1 % (0-1.3); Hematocrit 32.5 % (36.0-45.0); Hemoglobin 10.2 g/dL (12.0-15.0); Lymphocytes % 6.2 % (15.3-44.8); MCH 27.3 pg (27.0-35.0); MCHC 31.5 g/dL (32.0-36.0); MCV 86.6 fL (80-100); MPV 7.8 fL (7.6-11.3); Monocytes % 3.1 % (3.3-12.3); Neutrophils % 90.6 % (41.7-73.7); Platelets 247 thou/uL (152-406); RBC Red Blood Cell Count 3.75 M/uL (3.86-4.86); Red Cell Distribution Width 19.9 % (12.1-15.2)
[2024-11-19 05:38] LABS: ALT/SGPT 15 U/L (13-56); AST/SGOT 12 U/L (15-37); Albumin 2.1 g/dL (3.4-5.0); Albumin/Globulin Ratio 0.7 (1.1-1.8); Alkaline Phosphatase 94 U/L (45-117); Anion Gap 6.2 mEq/L (5.0-15.0); BUN Blood Urea Nitrogen 7 mg/dL (7-18); Bicarbonate 29 mEq/L (21-32); Glomerular Filtration Rate 121 ml/min (=/>90); Glucose Level 140 mg/dL (74-106); NT PRO-BNP 577 pg/mL (<125); Potassium 4.2 mEq/L (3.5-5.1); Protein, Total 5.1 g/dL (6.4-8.2); Sodium Level 144 mEq/L (136-145)
[2024-11-19 05:43] LABS: Bilirubin Total < 0.2 mg/dL (0.2-1.0)
[2024-11-19] MEDS ORDERED: VANCOMYCIN 1 GM/VIAL ONE (06:33)
[2024-11-19] MEDS ORDERED: NA CHLORIDE 0.9% 250 ML ONE (06:33)
[2024-11-19] MEDS: PANTOPRAZOLE 40MG TABLET PO SCH (07:30)
[2024-11-19] MEDS ORDERED: PANTOPRAZOLE 40MG TABLET PO ONE (08:22)
[2024-11-19] MEDS ORDERED: FENTANYL CITR 100 MCG/2 ML IV ONE (08:30)
[2024-11-19] MEDS ORDERED: FENTANYL CITR 100 MCG/2 ML ONE (08:39)
[2024-11-19 09:38] VITALS: BP 110/85
[2024-11-19 09:54] LABS: Blood Morphology Comment NOT SEEN (NOT SEEN); Platelet Estimate ADEQ; White Blood Cell Scan OK (OK)
--- NOTE | 2024-11-19 10:15 | P.DS ---
Admission Date: 11/18/24 Discharge Date: 11/19/24 Disposition: ROUTINE DISCHARGE Discharge Condition: GOOD Brief History of Present Illness: 44 year old female with past medical history of anxiety disorder, nicotine dependence, hypertension, GERD, Gastric ulcers, multiple GI bleeds status post partial gastrectomy and partial small intestine removal, chronic back pain, pneumonia who presents with shortness of breath. She reports home oxygen sat uration in the 70s, she reports wheezing, shortness of breath worse last night. She reports nonproductive cough she reports being admitted for pneumonia 1 month ago., Plan to admit for acute hypoxic respiratory failure secondary to multifocal pneumonia. Pulmonary to consult - Physical Exam General: Alert, Oriented x3, Mild distress HEENT: Atraumatic, Normocephalic, PERRLA Neck: 2+ carotid pulse no bruit, JVD not distended, No Thyromegaly Respiratory: Normal air movement, unlabored Cardiovascular: Normal pulses, Regular rate/rhythm, Normal S1 S2 Gastrointestinal: Normal bowel sounds, Soft and benign Musculoskeletal: No swelling, No contractures, No erythema Integumentary: Other (Alopecia,) Neurological: Normal speech, Normal strength at 5/5 x4 extr, Sensation intact Hospital Course: 44 year old female with past medical history of anxiety disorder, nicotine dependence, hypertension, GERD, Gastric ulcers, multiple GI bleeds status post partial gastrectomy and partial small intestine removal, chronic back pain, pneumonia who presents with shortness of breath. She reports home oxygen saturation in the 70s, she reports wheezing, shortness of breath worse last night. She reports nonproductive cough she reports being admitted for pneumonia 1 month ago., Plan to admit for acute hypoxic respiratory failure secondary to multifocal pneumonia. Pulmonary to consult, treated with steroids, IV antibiotics, nebulizer, stable to discharge home, follow-up with pulmonary after discharge Discharge medication Albuterol/Atrovent nebulizer, cefdinir 301 p.o. twice daily for 7 days Prednisone 10 mg daily NicoDerm patch Tobacco use, educated on tobacco cessation Assessment Acute hypoxic respiratory failure secondary to bilateral pneumonia improved with oxygen, steroids, antibiotics.-Discharged home on antibiotics, steroids, nebulizers, prednisone Home O2 dependent patient has home O2 at home Chronic pain resume home meds after discharge Protein calorie malnutrition, take protein calorie supplement daily History of anxiety, resume home meds Hypertension, resume home meds after discharge GERD, resume home medication after discharge Continue home medicines as previously prescribed GOAL: Clear understanding of disease process INSTRUCTIONS: Physician Discharge Instructions: -Follow-up with PCP in 1 to 2 weeks -Please call Dr. Arguello at [phone] if any questions regarding hospital stay -Please call nursing station at [phone] if any nursing or medication questions -Return to the emergency room if symptoms worsen Diet: ADA, low sodium Activity: Fall precautions Vital Signs/Physical Exam: Temp Pulse Resp BP Pulse Ox 97.8 F 66 17 110/85 96 11/19/24 08:00 11/19/24 08:00 11/19/24 08:35 11/19/24 08:00 11/19/24 08:00 Laboratory Data at Discharge: WBC 8.60 thou/uL (4.3-10.9) 11/19/24 05:03 Hgb 10.2 g/dL (12.0-15.0) L 11/19/24 05:03 Hct 32.5 % (36.0-45.0) L 11/19/24 05:03 Plt Count 247 thou/uL (152-406) 11/19/24 05:03 PT 12.2 SECONDS (9.4-12.5) 11/17/24 22:26 INR 1.16 11/17/24 22:26 APTT 36.3 SECONDS (24.3-36.9) 11/17/24 22:26 Sodium 144 mEq/L (136-145) 11/19/24 05:03 Potassium 4.2 mEq/L (3.5-5.1) 11/19/24 05:03 BUN 7 mg/dL (7-18) 11/19/24 05:03 Creatinine 0.45 mg/dL (0.55-1.02) L 11/19/24 05:03 Glucose 140 mg/dL (74-106) H 11/19/24 05:03 Magnesium 2.0 mg/dL (1.6-2.4) 11/19/24 05:03 Total Bilirubin < 0.2 mg/dL (0.2-1.0) L 11/19/24 05:03 AST 12 U/L (15-37) L 11/19/24 05:03 ALT 15 U/L (13-56) 11/19/24 05:03 Alkaline Phosphatase 94 U/L (45-117) 11/19/24 05:03 Home Medications: Nicotine [Nicoderm*] 21 mg TD DAILY #30 patch 08/19/23 Budesonide [Pulmicort*] 0.5 mg NEB BIDRESP #60 amp 09/08/24 Pantoprazole [Protonix Tab*] 40 mg PO ACB #30 tab 09/08/24 Potassium Oral Tab [Klor-Con 10 mEq Tab*] 10 meq PO DAILY #30 tab 09/08/24 Spironolactone [Aldactone*] 25 mg PO DAILY #30 tab 09/08/24 Pantoprazole Sodium [Protonix] 40 mg PO BID 10/14/24 Alprazolam [Xanax] 1 tab PO BEDTIME PRN #5 tab 10/16/24 Gabapentin 1 cap PO TID 30 Days #90 cap 10/16/24 Albuterol Neb [Proventil 0.083% Neb Soln] 2.5 mg NEB Q6HP PRN #60 amp 11/19/24 Cefdinir [Cefdinir*] 300 mg PO BID #14 cap 11/19/24 Doxepin HCl 100 mg PO DAILY 11/19/24 Hydrocodone 5/APAP 325 [[place] 5/325*] 1 tab PO Q6HP PRN #30 tab 11/19/24 Ipratropium Neb [Atrovent*] 0.5 mg NEB [id number] #60 amp 11/19/24 Nicotine [Nicoderm*] 21 mg TD DAILY #30 patch 11/19/24 predniSONE [Deltasone*] 10 mg PO DAILY #60 tab 11/19/24 New Medications: Ipratropium Neb [Atrovent*] 0.5 mg NEB [id number] #60 amp Cefdinir [Cefdinir*] 300 mg PO BID #14 cap predniSONE [Deltasone*] 10 mg PO DAILY #60 tab Nicotine [Nicoderm*] 21 mg TD DAILY #30 patch Hydrocodone 5/APAP 325 [[place] 5/325*] 1 tab PO Q6HP PRN #30 tab PRN Reason: Pain Scale 5-7 (Moderate) Albuterol Neb [Proventil 0.083% Neb Soln] 2.5 mg NEB Q6HP PRN #60 amp PRN Reason: Shortness Of Breath Physician Discharge Instructions: OK TO DC IV AND DC HOME FOLLOW-UP WITH PRIMARY CARE PROVIDER IN 1-2 WEEKS FOLLOW-UP WITH Pulmonary IN 1-2 WEEKS RETURN TO THE ER IF symptoms worsen CALL DR. ARGUELLO AT [phone] IF ANY QUESTIONS REGARDING HOSPITAL STAY. PLEASE CALL THE FLOOR AT [phone] IF ANY MEDICATION OR NURSING QUESTIONS. Diet: Regular Activity: Fall precautions Followup: Edu Anaya DO, DO [Primary Care Provider] - Kyle Walker MD [ACTIVE - CAN ADMIT] - Time spent managing pt's care (in minutes): 45
[2024-11-19 10:40] VITALS: O2SAT 99
[2024-11-19 11:11] VITALS: TEMP 97.4
== END 2024-11-19 10:32 | disposition home or self-care (01) | DRG 193 ==
LOC: ER 21:04 → ERHOLD 11-18 10:18
PROVIDERS: ADMIT Nurse Practitioner; ATTEND Hospitalist
DX: J18.9 Pneumonia, unspecified organism (principal); J96.01 Acute respiratory failure with hypoxia; E44.0 Moderate protein-calorie malnutrition; Z99.81 Dependence on supplemental oxygen; Z87.891 Personal history of nicotine dependence; Z90.49 Acquired absence of other specified parts of digestive tract; K21.9 Gastro-esophageal reflux disease without esophagitis; G89.29 Other chronic pain; Z68.20 Body mass index [BMI] 20.0-20.9, adult
CPT/HCPCS: 36415; 71045; 71275; 80053; 80202; 82947; 83605; 83735; 83880; 84145; 85025; 85610; 85730; 87040; 87804; 87807; 87811; 93005; 93970; 94640; 94760; 96374; 96375; 99285; J0692; J2270; J2405; J2919; J3010; J3475; J7030; J7050; J7613; J7644; Q9967

== ENCOUNTER 2025-07-02 21:39 | Inpatient (IN) | payer OTHER ==
[2025-07-02] MEDS ORDERED: LEVALBUTEROL 1.25 MG/3 ML NEB ONE (22:40)
[2025-07-02 23:03] LABS: Absolute Lymphocytes (CBC) 0.7 K/uL (0.7-4.9); Hematocrit 35.1 % (36.0-45.0); Hemoglobin 10.5 g/dL (12.0-15.0); MCH 21.7 pg (27.0-35.0); MCHC 30.0 g/dL (32.0-36.0); MCV 72.5 fL (80-100); MPV 8.7 fL (7.6-11.3); Nucleated RBC Absolute Count 0.0 (0-0); Nucleated Red Blood Cells % 0.0 % (0-0); RBC Red Blood Cell Count 4.84 M/uL (3.86-4.86); White Blood Count 15.40 thou/uL (4.3-10.9)
[2025-07-02 23:10] LABS: Blood O2 Saturation 99.0 % (92.0-98.5)
[2025-07-02 23:11] LABS: PT Prothrombin Time 15.8 SECONDS (10-13.0); PTT, Activated Partial Thromb 31.6 SECONDS (27.2-37.4); Protime INR 1.41
[2025-07-02 23:23] LABS: ALT/SGPT 18 U/L (13-56); AST/SGOT 21 U/L (15-37); Albumin 2.6 g/dL (3.4-5.0); Albumin/Globulin Ratio 0.6 (1.1-1.8); Alkaline Phosphatase 113 U/L (45-117); Anion Gap 5.4 mEq/L (5.0-15.0); BUN Blood Urea Nitrogen 8 mg/dL (7-18); Globulin 4.3 g/dL (2.3-3.5); Glucose Level 247 mg/dL (74-106); NT PRO-BNP 54 pg/mL (<125); Potassium 3.4 mEq/L (3.5-5.1)
[2025-07-02 23:28] LABS: Troponin High Sensitivity < 3.0 pg/mL (<58.9)
[2025-07-02 23:29] LABS: Influenza A Ag Negative; Influenza B Ag Negative; SARS-CoV-2 Antigen Rapid Res Negative (Negative)
[2025-07-02 23:51] LABS: Blood Morphology Comment NOTED (NOT SEEN); Differential Total Cells Count 100; Segmented Neutrophils 88 % (40-80)
[2025-07-02 23:52] LABS: Hypochromasia 1+
[2025-07-02] MEDS ORDERED: NA CHLORIDE 0.9% 0 ML ONE (23:58)
[2025-07-02] MEDS ORDERED: NA CHLORIDE 0.9% 1,000 ML ONE (23:58)
[2025-07-02] MEDS ORDERED: Levofloxacin 750mg IV 750 MG/150 ML BAG IV ONE (23:58)
--- NOTE | 2025-07-03 01:10 | EDPHYS ---
Physician Documentation [facility] Name: Ceci Ward Age: 44 yrs Sex: Female : 1980 Arrival Date: 07/02/2025 Time: 21:39 Bed 4 Private MD: ED Physician Santi Rai HPI: 07/02 22:25 This 44 yrs old Female presents to ER via Ambulatory with complaints of Breathing cp Difficulty. 22:25 The patient has shortness of breath at rest. Onset: The symptoms/episode began/occurred cp 2 day(s) ago. 22:25 Duration: The symptoms are continuous, and are steadily getting worse. cp 22:25 Associated signs and symptoms: Pertinent negatives: diaphoresis, fever. Severity of cp symptoms: in the emergency department the symptoms are unchanged despite home interventions. The patient has experienced similar episodes in the past, several times, reports hx chronic pneumonia. CLIENT SERVICE COORDINATOR: 07/03 06:40 Not cp4 Historical: - Allergies: 07/02 21:54 Propoxyphene; dd2 21:54 Tylenol-Codeine; dd2 21:54 propoxyphene napsylate; dd2 - PMHx: 21:54 gastric ulcers; Pneumonia; dd2 - PSHx: 21:54 Cholecystectomy; gastric; dd2 - Immunization history:: Adult Immunizations unknown. - Infectious Disease History:: Denies. - Social history:: Smoking status: Patient reports the use of cigarette tobacco products, smokes one-half pack cigarettes per day, smokes one pack cigarettes per day. ROS: 22:30 Constitutional: Negative for fever, poor PO intake, cp 22:30 Eyes: Negative for injury, pain, redness, and discharge, cp 22:30 Cardiovascular: Negative for chest pain, 22:30 Respiratory: Positive for shortness of breath, 22:30 Abdomen/GI: Negative for vomiting, diarrhea, constipation, 22:30 Neuro: Negative for altered mental status, 22:30 All other systems are negative, Exam: 22:22 ECG was reviewed by the Attending Physician. cp 22:33 Constitutional: The patient appears alert, awake, non-diaphoretic, non-toxic, well cp developed, well nourished, in obvious distress, mildly distressed, 22:33 Head/Face: Normocephalic, atraumatic. cp 22:33 Eyes: Periorbital structures: appear normal, Conjunctiva: normal, no exudate, no injection, Sclera: no appreciated abnormality, Lids and lashes: appear normal, bilaterally, 22:33 ENT: External ear(s): are unremarkable, Nose: is normal, Mouth: Lips: moist, Oral mucosa: moist, Posterior pharynx: Airway: no evidence of obstruction, patent, 22:33 Chest/axilla: Inspection: normal, 22:33 Cardiovascular: Rate: tachycardic, Rhythm: regular, Edema: is not appreciated, JVD: is not appreciated, 22:33 Respiratory: 22:33 Abdomen/GI: Inspection: abdomen appears normal, Palpation: soft, in all quadrants, mild cp abdominal tenderness, in all quadrants, 22:33 Back: pain, is absent, ROM is normal, 22:33 Skin: cellulitis, is not appreciated, cp 22:33 Neuro: Orientation: to person, place \T\ time. Mentation: is normal, Motor: moves all fours, strength is normal, Sensation: is normal, Vital Signs: 22:01 BP 118 / 81; Pulse 146; Resp 26; Temp 98.6; Pulse Ox 83% on R/A; Weight 56.7 kg; Height dd2 5 ft. 4 in. ; 22:22 BP 133 / 86; Pulse 128; Resp 22; Temp 98.9; Pulse Ox 96% on R/A; mf3 22:45 BP 129 / 92; Pulse 92; Resp 18; Pulse Ox 98% on 4 lpm NC; mf3 23:00 BP 106 / 77; Pulse 130; Resp 21; Pulse Ox 98% on 4 lpm NC; 3 0920 00:00 BP 107 / 80; Pulse 122; Resp 20; Pulse Ox 94% on 4 lpm NC; 3 01:00 BP 102 / 75; Pulse 117; Resp 22; Pulse Ox 95% on 4 lpm NC; 3 02:00 BP 102 / 75; Pulse 109; Resp 18; Pulse Ox 95% on 2 lpm NC; 3 03:00 BP 100 / 78; Pulse 120; Resp 21; Pulse Ox 96% on 4 lpm NC; mf3 04:00 BP 92 / 79; Pulse 108; Resp 23; Pulse Ox 95% on 2 lpm NC; mf3 04:30 BP 104 / 76; Pulse 112; Resp 24; Pulse Ox 98% on 4 lpm NC; mf3 05:00 BP 108 / 79; Pulse 125; Resp 21; Pulse Ox 95% ; mf3 06:12 BP 106 / 74; Pulse 116; Resp 27; Pulse Ox 96% on 4 lpm NC; mf3 07/02 22:01 Body Mass Index 21.46 (56.70 kg, 162.56 cm) dd2 [place] Coma Score: 07/02 22:22 Eye Response: spontaneous(4). Motor Response: obeys commands(6). Verbal Response: mf3 oriented(5). Total: 15. MDM: 21:57 Medical Screening Exam initiated 22:23 Data reviewed: vital signs, nurses notes, EKG. ED course: I have reviewed and tt7 independently interpreted the patient's EKG performed on 07/02/2025 at 2216. On my interpretation, sinus tachycardia, ventricular rate 131 bpm, normal axis, normal QRS interval, normal QTc, no STEMI. 07/03 00:00 Differential diagnosis: Bronchitis CHF exacerbation, Chronic Obstructive Pulmonary cp Disease Myocardial Infarction pneumonia, Pneumothorax pulmonary edema, Pulmonary Embolism Sepsis Unstable Angina. 01:10 Management of patient was discussed with the following: Hospitalist: DR Thompson will cp admit after discussion and results of CT chest/abdomen/pelvis. 03:30 Awaiting: CT scan results. 05:22 ED course: 44-year-old female who came in with dyspnea and hypoxia, has increased tt7 supplemental oxygen requirement, received workup in the emergency department which found leukocytosis, radiographic findings of pneumonia, was treated with levofloxacin, I had discussion with the hospitalist Dr. Thompson regarding admission and he accepts patient for inpatient admission due to patient's acute hypoxic respiratory failure and pneumonia. 07/02 22:35 Order name: BNP; Complete Time: 23:52 07/02 22:35 Order name: Blood Culture Adult (2) cp 07/02 22:35 Order name: CBC with Diff; Complete Time: 01:05 07/03 01:05 Interpretation: Normal except: WBC 15.40; HGB 10.5; HCT 35.1; MCV 72.5; MCH 21.7; MCHC cp 30.0; PLT 419; RDW 19.5; ROBERT% 90.7; LYM% 4.7; NEUT A 13.9. 07/02 22:35 Order name: CMP; Complete Time: 23:52 07/02 22:35 Order name: Lactate w/ 2H reflex if indic.; Complete Time: 23:52 07/02 22:35 Order name: Protime (+inr); Complete Time: 23:52 07/02 22:35 Order name: Ptt, Activated; Complete Time: 23:52 07/02 22:35 Order name: Troponin HS; Complete Time: 23:52 07/02 22:35 Order name: COVID-19 Ag + Flu A+B Ag; Complete Time: 23:52 07/02 22:35 Order name: UA Rfx Huy Cult if indicated; Complete Time: 04:46 07/02 22:38 Order name: ABG; Complete Time: 23:52 07/02 23:10 Order name: Manual Differential; Complete Time: 01:05 EDMS 07/03 05:22 Order name: CBC with Automated Diff EDMS 07/03 05:22 Order name: CBC with Automated Diff EDMS 07/03 05:22 Order name: Comprehensive Metabolic Panel EDMD 07/03 05:22 Order name: Comprehensive Metabolic Panel [facility] 07/02 22:35 Order name: Chest Single View XRAY 07/03 01:22 Order name: CT Chest For PE Angio 07/03 01:22 Order name: CT Abd/Pelvis - IV Contrast Only 07/02 22:35 Order name: EKG; Complete Time: 22:36 07/02 22:35 Order name: Accucheck; Complete Time: 23:01 07/02 22:35 Order name: Cardiac monitoring; Complete Time: 22:36 07/02 22:35 Order name: EKG - Nurse/Tech; Complete Time: 22:36 07/02 22:35 Order name: IV Saline Lock - Large Bore; Complete Time: 22:36 07/02 22:35 Order name: Labs collected and sent; Complete Time: 22:36 07/02 22:35 Order name: O2 Per Protocol; Complete Time: 22:36 07/02 22:35 Order name: O2 Sat Monitoring; Complete Time: 22:36 07/02 22:35 Order name: Vital Signs; Complete Time: 22:36 cp EC/19 22:22 Rate is 131 beats/min. Rhythm is regular. KS interval is normal. QRS interval is cp normal. QT interval is normal. T waves are Inverted in lead aVR. Interpreted by me. Reviewed by me. Administered Medications: 22:53 Drug: Levalbuterol Inhalation 1.25 mg Inhalation once Route: Inhalation; cp4 07/03 00:05 Follow up: Response: No adverse reaction mf3 00:04 Drug: levofloxacin IVPB 750 mg 150 ml IVPB once over 90 mins Volume: 150 ml; Route: mf3 IVPB; Infused Over: 90 mins; Site: left antecubital; 01:35 Follow up: IV Status: Completed infusion mf3 05:03 Follow up: Response: No adverse reaction mf3 00:05 Drug: NS 0.9% IV 1000 ml IV at 1000 ml once; to be given as a bolus over 60 minutes mf3 Route: IV; Rate: 1000 ml; Site: left antecubital; 01:10 Follow up: Response: No adverse reaction; IV Status: Completed infusion mf3 01:29 Drug: GI Cocktail without - (Maalox PO 30 ml, Lidocaine Mucous Membrane 2 % 15 lg3 ml) PO once Route: PO; 01:32 Follow up: Response: No adverse reaction mf3 05:02 Follow up: Response: No adverse reaction mf3 01:29 Drug: Famotidine IVP 20 mg IVP once; dilute with 10 mL 0.9% NaCl; give over 2 minutes lg3 Route: IVP; Site: left upper arm; 01:32 Follow up: Response: No adverse reaction mf3 05:02 Follow up: Response: No adverse reaction mf3 01:48 Drug: fentaNYL (PF) IVP 25 mcg IVP once Route: IVP; Site: left antecubital; 4 05:02 Follow up: Response: No adverse reaction mf3 Disposition: 05:24 Co-signature as Attending Physician, Santi Rai DO I agree with the assessment and tt7 plan of care. Disposition Summary: 07/03/25 01:09 Hospitalization Ordered Notes: Hospitalization Status: Inpatient Admission cp Provider: Enrique Thompson cp Location: Telemetry/MedSurg (Inpatient) cp Condition: Stable cp Problem: new cp Symptoms: have improved cp Bed/Room Type: Standard cp Room Assignment: 431(07/03/25 05:37) Diagnosis - Pneumonia, unspecified organism cp Forms: - Medication Reconciliation Form cp - SBAR form cp - Leadership Thank You Letter cp Signatures: Dispatcher [employer] EDMS Keyla Ryan, RN RN Marlon Swanson PA-C PAMechelle Johnson cp RN RN lg3 Kera Andino cp4 SULMA LADD RN RN dd2 Karen Marcano RN RN mf3 Santi Rai, DO DO tt7 Corrections: (The following items were deleted from the chart) 07/02 22:36 22:36 PROBNP+C.LAB.BRZ ordered. EDMS EDMS 22:36 22:36 BLOOD CULTURE*+BA.LAB.BRZ ordered. EDMS EDMS 22:36 22:36 CBC+H.LAB.BRZ ordered. EDMS EDMS 22:36 22:36 COMPREHENSIVE METABOLIC PANEL+C.LAB.BRZ ordered. EDMS EDMS 22:36 22:36 LACTATE+C.LAB.BRZ ordered. EDMS EDMS 22:36 22:36 PROTIME (+INR)+COAG.LAB.BRZ ordered. EDMS EDMS 22:36 22:36 PTT, ACTIVATED+COAG.LAB.BRZ ordered. EDMS EDMS 22:36 22:36 Troponin High Sensitivity+C.LAB.BRZ ordered. EDMS EDMS 22:36 22:36 COVID-19 Ag + Flu A+B Ag+I.LAB.BRZ ordered. EDMS EDMS 22:36 22:36 UA Rfx Huy Cult if indicated+U.LAB.BRZ ordered. EDMS EDMS 22:38 22:38 Arterial Blood Gas+RC.LAB.BRZ ordered. EDMS EDMS 07/03 05:37 01:09 rosalia urrutia 07/04 02:59 02:58 Management of patient was discussed with the following: Hospitalist: DR Thompson cp will admit after discussion and results of CT chest/abdomen/pelvis. cp
--- NOTE | 2025-07-03 01:10 | ER ---
Nurse's Notes [facility] Name: Ceci Ward Age: 44 yrs Sex: Female : 1980 Arrival Date: 07/02/2025 Time: 21:39 Bed 4 Private MD: Diagnosis: Pneumonia, unspecified organism Presentation: 07/02 22:01 Chief complaint: Patient states: shortness of breath and feeling like water in lungs dd2 for 2 days. pt reports hx of chronic pneumonia. Coronavirus screen: At this time, the client does not indicate any symptoms associated with coronavirus-19. Ebola Screen: No symptoms or risks identified at this time. Initial Sepsis Screen: Does the patient meet any 2 criteria? RR > 20 per min. HR > 90 bpm. Yes Does the patient have a suspected source of infection? No. Patient's initial sepsis screen is negative. Risk Assessment: Do you want to hurt yourself or someone else? Patient reports no desire to harm self or others. Onset of symptoms was June 30, 2025. 22:01 Method Of Arrival: Ambulatory dd2 22:01 Acuity: JES 2 dd2 Triage Assessment: 22:01 General: Appears ill, Behavior is calm, cooperative, appropriate for age. Pain: dd2 Complains of pain in abdomen. Respiratory: Reports shortness of breath at rest on exertion Airway is patent Respiratory effort is labored, with retractions, Respiratory pattern is symmetrical, tachypnea Onset: The symptoms/episode began/occurred 06/30, the patient has severe shortness of breath. CHARGE AUTHORIZER: 07/03 06:40 Not cp4 Historical: - Allergies: 07/02 21:54 Propoxyphene; dd2 21:54 Tylenol-Codeine; dd2 21:54 propoxyphene napsylate; dd2 - PMHx: 21:54 gastric ulcers; Pneumonia; dd2 - PSHx: 21:54 Cholecystectomy; gastric; dd2 - Immunization history:: Adult Immunizations unknown. - Infectious Disease History:: Denies. - Social history:: Smoking status: Patient reports the use of cigarette tobacco products, smokes one-half pack cigarettes per day, smokes one pack cigarettes per day. Screenin:22 [facility] ED Fall Risk Assessment (Adult) History of falling in the last 3 months, mf3 including since admission No falls in past 3 months (0 pts) Confusion or Disorientation No (0 pts) Intoxicated or Sedated No (0 pts) Impaired Gait No (0 pts) Mobility Assist Device Used No (0 pt) Altered Elimination No (0 pt) Score/Fall Risk Level 0 - 2 = Low Risk Oriented to surroundings. Abuse screen: Denies threats or abuse. Denies injuries from another. Nutritional screening: No deficits noted. Tuberculosis screening: No symptoms or risk factors identified. Never had TB. Assessment: 22:22 General: Appears distressed. General: Behavior is calm, cooperative, appropriate for 2 age. Pain: Complains of pain in abdomen Pain currently is 5 out of 10 on a pain scale. Neuro: Level of Consciousness is awake, alert, obeys commands, Oriented to person, place, time, situation, Appropriate for age. Cardiovascular: Capillary refill < 3 seconds Rhythm is sinus tachycardia. Respiratory: Airway is patent Trachea midline Respiratory effort is labored, Respiratory pattern is symmetrical, Breath sounds are coarse bilaterally. GI: Abdomen is round. : No signs and/or symptoms were reported regarding the genitourinary system. 23:00 Reassessment: Patient and/or family updated on plan of care and expected duration. Pain mf3 level reassessed. Patient is alert, oriented x 3, equal unlabored respirations, skin warm/dry/pink. 07/03 00:00 Reassessment: Patient and/or family updated on plan of care and expected duration. Pain mf3 level reassessed. Patient is alert, oriented x 3, equal unlabored respirations, skin warm/dry/pink. 01:00 Reassessment: Patient and/or family updated on plan of care and expected duration. Pain mf3 level reassessed. Patient is alert, oriented x 3, equal unlabored respirations, skin warm/dry/pink. pt states she is having pain in abdomen. Page. MEEK notified. 02:00 Reassessment: Patient and/or family updated on plan of care and expected duration. Pain mf3 level reassessed. Patient is alert, oriented x 3, equal unlabored respirations, skin warm/dry/pink. 03:00 Reassessment: Patient and/or family updated on plan of care and expected duration. Pain mf3 level reassessed. Patient is alert, oriented x 3, equal unlabored respirations, skin warm/dry/pink. Patient denies pain at this time. Patient states feeling better. 04:00 Reassessment: Patient and/or family updated on plan of care and expected duration. Pain mf3 level reassessed. Patient is alert, oriented x 3, equal unlabored respirations, skin warm/dry/pink. 06:16 Reassessment: Patient and/or family updated on plan of care and expected duration. Pain mf3 level reassessed. Patient is alert, oriented x 3, equal unlabored respirations, skin warm/dry/pink. Patient denies pain at this time. Vital Signs: 07/02 22:01 BP 118 / 81; Pulse 146; Resp 26; Temp 98.6; Pulse Ox 83% on R/A; Weight 56.7 kg; Height dd2 5 ft. 4 in. ; 22:22 BP 133 / 86; Pulse 128; Resp 22; Temp 98.9; Pulse Ox 96% on R/A; 3 22:45 BP 129 / 92; Pulse 92; Resp 18; Pulse Ox 98% on 4 lpm NC; 3 23:00 BP 106 / 77; Pulse 130; Resp 21; Pulse Ox 98% on 4 lpm NC; 3 07/03 00:00 BP 107 / 80; Pulse 122; Resp 20; Pulse Ox 94% on 4 lpm NC; 3 01:00 BP 102 / 75; Pulse 117; Resp 22; Pulse Ox 95% on 4 lpm NC; 3 02:00 BP 102 / 75; Pulse 109; Resp 18; Pulse Ox 95% on 2 lpm NC; 3 03:00 BP 100 / 78; Pulse 120; Resp 21; Pulse Ox 96% on 4 lpm NC; 3 04:00 BP 92 / 79; Pulse 108; Resp 23; Pulse Ox 95% on 2 lpm NC; 3 04:30 BP 104 / 76; Pulse 112; Resp 24; Pulse Ox 98% on 4 lpm NC; 3 05:00 BP 108 / 79; Pulse 125; Resp 21; Pulse Ox 95% ; 3 06:12 BP 106 / 74; Pulse 116; Resp 27; Pulse Ox 96% on 4 lpm NC; 3 07/02 22:01 Body Mass Index 21.46 (56.70 kg, 162.56 cm) dd2 Vitals: 07/02 22:00 Cardiac Rhythm Assessment Sinus tach. 3 22:22 Cardiac Rhythm Assessment Sinus tach. 3 07/03 00:00 Cardiac Rhythm Assessment Sinus tach. mf3 02:00 Cardiac Rhythm Assessment Sinus tach. 3 04:00 Cardiac Rhythm Assessment Sinus tach. 3 06:00 Cardiac Rhythm Assessment Sinus tach. 3 06:12 Cardiac Rhythm Assessment Sinus tach. 3 [place] Coma Score: 07/02 22:22 Eye Response: spontaneous(4). Motor Response: obeys commands(6). Verbal Response: mf3 oriented(5). Total: 15. ED Course: 21:41 Patient arrived in ED. mr 21:57 Mralon Choe PA-C is PHCP. cp 21:57 Santi Rai DO is Attending Physician. cp 22:01 Arm band placed on right wrist. dd2 22:03 Triage completed. dd2 22:13 Inserted saline lock: 22 gauge in left antecubital area, using aseptic technique. Blood cp4 collected. Flushed with 10 mL NS. 22:22 Karen Marcano, RN is Primary Nurse. mf3 22:22 Patient has correct armband on for positive identification. Bed in low position. Call mf3 light in reach. Side rails up X2. Provided Education on: . 22:22 No provider procedures requiring assistance completed. Inserted saline lock: 22 gauge mf3 in left antecubital area, using aseptic technique. Blood collected. Flushed with 10 mL NS. 22:46 Chest Single View XRAY In Process Unspecified. EDMS 22:55 BNP Sent. mf3 22:55 Blood Culture Adult (2) Sent. mf3 22:55 CBC with Diff Sent. mf3 22:55 CMP Sent. mf3 22:55 Protime (+inr) Sent. mf3 22:55 Ptt, Activated Sent. mf3 22:55 Troponin HS Sent. mf3 22:55 COVID-19 Ag + Flu A+B Ag Sent. [facility] 07/03 01:08 Enrique Thompsno MD is Hospitalizing Provider. cp 02:33 CT Chest For PE Angio In Process Unspecified. EDMS 02:33 CT Abd/Pelvis - IV Contrast Only In Process Unspecified. EDMS 06:40 Patient admitted, IV remains in place. cp4 06:40 Patient admitted, IV remains in place. lg3 Administered Medications: 07/02 22:53 Drug: Levalbuterol Inhalation 1.25 mg Inhalation once Route: Inhalation; cp4 07/03 00:05 Follow up: Response: No adverse reaction 3 00:04 Drug: levofloxacin IVPB 750 mg 150 ml IVPB once over 90 mins Volume: 150 ml; Route: mf3 IVPB; Infused Over: 90 mins; Site: left antecubital; 01:35 Follow up: IV Status: Completed infusion 3 05:03 Follow up: Response: No adverse reaction 3 00:05 Drug: NS 0.9% IV 1000 ml IV at 1000 ml once; to be given as a bolus over 60 minutes 3 Route: IV; Rate: 1000 ml; Site: left antecubital; 01:10 Follow up: Response: No adverse reaction; IV Status: Completed infusion 3 01:29 Drug: GI Cocktail without - (Maalox PO 30 ml, Lidocaine Mucous Membrane 2 % 15 lg3 ml) PO once Route: PO; 01:32 Follow up: Response: No adverse reaction 3 05:02 Follow up: Response: No adverse reaction 3 01:29 Drug: Famotidine IVP 20 mg IVP once; dilute with 10 mL 0.9% NaCl; give over 2 minutes lg3 Route: IVP; Site: left upper arm; 01:32 Follow up: Response: No adverse reaction 3 05:02 Follow up: Response: No adverse reaction 3 01:48 Drug: fentaNYL (PF) IVP 25 mcg IVP once Route: IVP; Site: left antecubital; 4 05:02 Follow up: Response: No adverse reaction 3 Medication: 07/02 22:22 VIS not applicable for this client. 3 Outcome: 07/03 01:09 Decision to Hospitalize by Provider. cp 06:40 Admitted to Med/surg accompanied by tech, via stretcher, lg3 06:40 Condition: stable 06:40 Instructed on the need for admit, Demonstrated understanding of instructions, 06:41 Patient left the ED. lg3 Signatures: Dispatcher [employer] EDME Bright[employer]ce, Reg Orlando Marlon Packer, PA-C PAMechelle Johnson cp RN RN lg3 Kera Andino cp4 SULMA LADD RN RN dd2 Karen Marcano RN RN mf3 Corrections: (The following items were deleted from the chart) 00:07 09/19 22:45 BP 129 / 92; Pulse 92bpm; Resp 18bpm; Pulse Ox 98%; mf3 mf3
[2025-07-03] MEDS ORDERED: FAMOTIDINE 20 MG/2 ML VIAL IV ONE (01:13)
[2025-07-03] MEDS ORDERED: LIDOCAINE VISCOUS 2% 10ML ORAL SOLN ONE (01:14)
[2025-07-03] MEDS ORDERED: MAGNES/ALUMIN/SIMET 30ML UCUP ONE (01:14)
[2025-07-03] MEDS ORDERED: FENTANYL CITR 100 MCG/2 ML ONE (01:34)
--- NOTE | 2025-07-03 02:24 | RAD REPORT ---
EXAM: XR CHEST 1 VIEW DATE: 07/02/2025 10:35 PM CDT INDICATION: Cough COMPARISON: 04/02/2025 TECHNIQUE: Frontal chest radiograph FINDINGS: There is patchy airspace disease in the mid and lower lungs bilaterally. There is no large effusion. The cardiomediastinal silhouette is normal. There is no acute bony abnormality. IMPRESSION: Mild multifocal airspace disease concerning for pneumonia. Electronically signed by: Chente Winn MD 07/03/2025 12:07 AM CDT RP 838 Due to temporary technical issues with the PACS/[employer] reporting system, reports are being phillip d by the in-house radiologist without review as a courtesy to ensure prompt reporting. The interpreting radiologist is fully responsible for the content of the report. Transcribed Date/Time: 07/03/2025 2:24 AM
[2025-07-03 03:51] LABS: Sqamous Epithelial <5 /HPF (None Seen); Urine Culture Reflex Order NOT NEEDED; Urine Microscopic Reflex YN ORDER UMIC
--- NOTE | 2025-07-03 04:53 | RAD REPORT ---
EXAM: CT Angiography Chest With Intravenous Contrast CLINICAL HISTORY: The patient is 44 years old and is Female; Shortness of breath. TECHNIQUE: Axial computed tomographic angiography images of the chest with intravenous contrast. Sagittal and coronal reformatted images were created and reviewed. This CT exam was performed using one or more of the following dose reduction techniques: automated exposure control, adjustmen t of the mA and/or kV according to patient size, and/or use of iterative reconstruction technique. MIP reconstructed images were created and reviewed. COMPARISON: XR Chest 07/02/2025. FINDINGS: Pulmonary arteries: No PE identified. Aorta: No acute findings. No thoracic aortic aneurysm. Lungs and pleural spaces: Bilateral multilobar groundglass opacities. No pleural effusion or pneumothorax. Heart: Mild cardiac enlargement. No significant pericardial. Bones/joints: No acute fracture visualized. No dislocation. Soft tissues: Unremarkable. Lymph nodes: Enlarged AP window, paratracheal, subcarinal and hilar lymph nodes. IMPRESSION: 1. No PE identified. 2. Bilateral multilobar groundglass opacities, nonspecific. Correlate clinically for infection incl uding atypical etiologies. 3. Bilateral hilar and mediastinal adenopathy. Electronically signed by: Bernadette Cary MD 07/03/2025 04:34 AM CDT V2 Due to temporary technical issues with the PACS/[employer] reporting system, reports are being phillip d by the in-house radiologist without review as a courtesy to ensure prompt reporting the interpreting radiologist is fully responsible for the content of the report. Transcribed Date/Time: 07/03/2025 4:53 AM
--- NOTE | 2025-07-03 04:54 | RAD REPORT ---
EXAM: CT Abdomen and Pelvis With Intravenous Contrast CLINICAL HISTORY: The patient is 44 years old and is Female; Abdominal pain. TECHNIQUE: Axial computed tomography images of the abdomen and pelvis with intravenous contrast. Sagittal and coronal reformatted images were created and reviewed. This CT exam was performed using one or more of the following dose reduction techniques: automated exposure control, adjustmen t of the mA and/or kV according to patient size, and/or use of iterative reconstruction technique. COMPARISON: CT Abdomen Pelvis 03/17/2025. FINDINGS: Lung bases: See CT chest report, study performed concurrently. ABDOMEN: Liver: Hepatomegaly. Gallbladder and bile ducts: Cholecystectomy without biliary dilatation or choledocholithiasis. Pancreas: No findings to suggest acute pancreatitis. No mass visualized. No ductal dilation. Spleen: Spleen is in the upper limits of normal in size. Adrenals: Unremarkable. No mass. Kidneys and ureters: Unremarkable. No solid mass. No hydronephrosis. Stomach and bowel: Mild sigmoid colon wall thickening versus artifact of incomplete distention. N o significant pericolonic inflammation. Prior gastric surgery. No findings to suggest enteritis. No bowel obstruction. PELVIS: Appendix: The visualized appendix is normal. No pericecal inflammation to suggest acute appendici tis. Bladder: Unremarkable. No mass. Reproductive: Uterus and ovaries are unremarkable. ABDOMEN and PELVIS: Intraperitoneal space: Unremarkable. No free air. No significant fluid collection. Bones/joints: Mild scoliosis. No acute fracture visualized. No dislocation. Soft tissues: Unremarkable. Vasculature: Unremarkable. No abdominal aortic aneurysm. Lymph nodes: No pathologically enlarged lymph nodes. IMPRESSION: 1. Mild sigmoid colon wall thickening versus artifact of incomplete distention. No significant uzma colonic inflammation. Correlate clinically for mild sigmoid colitis. 2. Cholecystectomy without biliary dilatation or choledocholithiasis. 3. Prior gastric surgery. 4. Hepatomegaly. 5. Additional non-emergent findings as above. Electronically signed by: Bernadette Cary MD 07/03/2025 04:40 AM CDT RP V2 Due to temporary technical issues with the PACS/[employer] reporting system, reports are being phillip d by the in-house radiologist without review as a courtesy to ensure prompt reporting the interpreting radiologist is fully responsible for the content of the report. Transcribed Date/Time: 07/03/2025 4:53 AM
[2025-07-03] MEDS ORDERED: ALBUTEROL 2.5 MG/3 ML NEB SOL NEB PRN (05:17)
[2025-07-03] MEDS ORDERED: ONDANSETRON 4 MG/2 ML VIAL IV PRN (05:17)
--- NOTE | 2025-07-03 05:26 | P.HP ---
Certification for Inpatient Patient admitted to: Inpatient With expected LOS: >2 Midnights Practitioner: I am a practitioner with admitting privileges, knowledge of patient current condition, hospital course, and medical plan of care. Services: Services provided to patient in accordance with Admission requirements found in Title 42 Section 412.3 of the Code of Federal Regulations Patient History Date of Service: 07/03/25 Reason for admission: Pneumonia History of Present Illness: 44 year old female with past medical history of COPD, anxiety disorder, nicotine dependence, hypertension, GERD, Gastric ulcers, multiple GI bleeds status post partial gastrectomy and partial small intestine removal, chronic back pain, pneumonia who presents with chief complaint of shortness of breath which has been progressively getting worse and was found to be hypoxic and was placed on 4 L nasal cannula to keep saturation more than 94. Denies any chest pain. No chills. No nausea or vomiting . Patient state that she is progressively getting short of breath. Has a recent admission for pneumonia. Cough is ongoing and shortness of breath is worsening and was brought to ER. Has subjective fever. Patient was assessed in the ER and is admitted for further management of atypical pneumonia and mild sigmoid colitis. Allergies codeine [From Tylenol-Codeine #3] Allergy (Verified 08/10/23 13:10) Rash propoxyphene napsylate [From Darvocet-N 100] Allergy (Verified 03/15/13 14:12) Itching/Hives/Rash tramadol Allergy (Verified 03/15/25 00:49) Hives/Rash Home Medications: Spironolactone [Aldactone*] 25 mg PO DAILY #30 tab 09/08/24 Pantoprazole Sodium [Protonix] 40 mg PO BID 10/14/24 Gabapentin 1 cap PO TID 30 Days #90 cap 10/16/24 Alprazolam [Xanax] 1 tab PO BEDTIME PRN #14 tab 03/26/25 Hydrocodone 10/APAP 325 [Almond 10/325*] 1 tab PO Q6H PRN #30 tab 03/26/25 Ipratropium Neb [Atrovent*] 0.5 mg NEB [id number] #60 amp 03/26/25 Levalbuterol [Xopenex*] 1.25 mg NEB Q8HP #90 vial 03/26/25 predniSONE [Deltasone*] 10 mg PO DAILY #70 tab 03/26/25 Budesonide [Pulmicort*] 0.5 mg NEB BIDRESP #60 amp 04/04/25 Oxycodone HCl/Acetaminophen [Percocet 5/325 Tab*] 1 tab PO Q12HP PRN #20 tab 04/12/25 - Past Medical/Surgical History Diabetic: No Past Medical History: Reviewed- Non-Contributory -: Anxiety disorder -: Nicotine dependence -: Hypertension -: GERD -: Chronic back pain -: Pneumonia -: MRSA in 2020 -: stomach ulcers -: Pulmonary fibrosis Past Surgical History: Reviewed- Non-Contributory -: BTL -: Partial stomach removed -: Colon resection - Family History Father -: Cancer Notes: pelvic cancer Mother -: Cancer Notes: lung cnacer, brain cancer Brother Notes: SIDS - Social History Smoking Status: Current some day smoker Alcohol use: No CD- Drugs: No Caffeine use: Yes Review of Systems 10-point ROS is otherwise unremarkable Physical Examination - Vital Signs Temperature: 98.2 F Blood Pressure: 123/76 Pulse: 92 Respirations: 20 Pulse Ox (%): 94 - Physical Exam General: Alert, Oriented x3, Mild distress HEENT: Atraumatic, Normocephalic Neck: Supple Respiratory: Normal air movement, Crackles/rales, Expiratory wheezes Cardiovascular: Regular rate/rhythm, Normal S1 S2 Capillary refill: <2 Seconds Gastrointestinal: Soft and benign, W/out hepatosplenomegaly Musculoskeletal: No clubbing Integumentary: No rashes Neurological: Other (Alert awake nonfocal) Lymphatics: No axilla or inguinal lymphadenopathy - Studies Laboratory Data (last 24 hrs) 07/02/25 07/02/25 07/02/25 22:15 22:15 22:15 WBC 15.40 H Hgb 10.5 L Hct 35.1 L Plt Count 419 H PT 15.8 H INR 1.41 APTT 31.6 Sodium 140 Potassium 3.4 L BUN 8 Creatinine 0.63 Glucose 247 H Total Bilirubin 0.3 AST 21 ALT 18 Alkaline Phosphatase 113 Assessment and Plan - Plan Acute hypoxic respiratory failure Multifocal pneumonia Tachycardic CT findings noted was negative for PE consistent with multifocal pneumonia Started on IV antibiotic Bronchodilators Monitor closely in telemetry COPD exacerbation Monitor closely on telemetry Started on bronchodilators Oxygen supplementation ABG findings noted Chest x-ray findings noted Sigmoid colitis CT consistent with mild sigmoid colitis Will add on Flagyl Need outpatient follow-up with GI Chronic pain Monitor closely Continue home medications and titrate as needed History of anxiety disorder Chronic back pain Hypertension History of gastric ulcers GERD Continue home medication History of nicotine dependence nicotine patch offered Advised cessation DVT PPx Lovenox Full code Discharge Plan: Home Plan to discharge in: 48 Hours - Advance Directives Does patient have a Living Will: No Does patient have a Durable POA for Healthcare: Yes - Code Status/Comfort Care Code Status: Full Code Time Spent Managing Pts Care (In Minutes): 48
[2025-07-03] MEDS: IPRATROPIUM BROM 0.5MG/2.5ML NEB SCH (07:23)
[2025-07-03] MEDS: ALBUTEROL 2.5 MG/3 ML NEB SOL NEB SCH (07:23)
[2025-07-03] MEDS: ENOXAPARIN 40 MG/0.4 ML SQ SCH (08:03)
[2025-07-03] MEDS: HYDROMORPHONE HCL 0.5 MG/0.5 ML INJ IV PRN (08:03)
[2025-07-03] MEDS: AZITHROMYCIN IV 500 MG in NA CHLORIDE 0.9% 250 ML IVPB SCH (08:04)
[2025-07-03] MEDS: CEFTRIAXONE 1,000 MG in NA CHLORIDE 0.9% 50 ML IVPB SCH (08:04)
[2025-07-03] MEDS: POTASSIUM CL SA 10 MEQ TAB PO ONE (08:05)
[2025-07-03] MEDS: METRONIDAZOLE 500mg IVPB 500 MG/100 ML BAG IV SCH (08:05)
[2025-07-03] MEDS: NICOTINE 21 MG/PAT TD SCH (10:15)
[2025-07-03] MEDS: HYDROCODONE/APAP 5/325 MG TAB PO PRN (10:40)
[2025-07-03] MEDS: LEVALBUTEROL 1.25 MG/3 ML NEB NEB SCH (19:52)
[2025-07-04 06:29] LABS: Hematocrit 30.9 % (36.0-45.0); Hemoglobin 9.5 g/dL (12.0-15.0); MCH 22.0 pg (27.0-35.0); MCHC 30.6 g/dL (32.0-36.0); MCV 71.7 fL (80-100); MPV 7.9 fL (7.6-11.3); RBC Red Blood Cell Count 4.31 M/uL (3.86-4.86); White Blood Count 13.10 thou/uL (4.3-10.9)
[2025-07-04 06:45] LABS: ALT/SGPT 15.0 U/L (13-56); AST/SGOT 28.0 U/L (15-37); Albumin 2.3 g/dL (3.4-5.0); Albumin/Globulin Ratio 0.6 (1.1-1.8); Alkaline Phosphatase 115.0 U/L (45-117); Anion Gap 5.8 mEq/L (5.0-15.0); BUN Blood Urea Nitrogen 7.0 mg/dL (7-18); Globulin 4.0 g/dL (2.3-3.5); Glucose Level 121.0 mg/dL (74-106); Potassium 3.8 mEq/L (3.5-5.1)
[2025-07-04 07:43] LABS: Differential Total Cells Count 100
[2025-07-04 07:44] LABS: Blood Morphology Comment NOTED (NOT SEEN); Hypochromasia 1+; Polychromasia SLIGHT; Segmented Neutrophils 91 % (40-80); Stomatocytes 2+
[2025-07-04] MEDS: METOPROLOL TARTRATE 5 MG/5 ML INJ IV STA (10:30)
[2025-07-04] MEDS: PANTOPRAZOLE 40MG TABLET PO SCH (10:44)
[2025-07-04] MEDS: SPIRONOLACTONE 25 MG TABLET PO SCH (10:44)
--- NOTE | 2025-07-04 12:42 | RAD REPORT ---
EXAM: Chest Single View HISTORY: 44 years Female pneumonia COMPARISON: 07/03/2025 FINDINGS: LUNGS/PLEURA: Worsening moderate to severe widespread interstitial and airspace disease. CARDIAC/MEDIASTINUM: The cardiac silhouette is within normal limits. UPPER ABDOMEN: No significant abnormality. BONES: No acute abnormality. LINES/TUBES/OTHER: N/A IMPRESSION: Worsened moderate to severe bilateral airspace disease that probably represents pneumonia.
[2025-07-04] MEDS: GABAPENTIN 300 MG CAP PO SCH (12:57)
[2025-07-04] MEDS ORDERED: OXYCODONE 10 MG PO SCH (14:00)
[2025-07-04] MEDS: OXYCODONE HCL 5 MG TAB PO SCH (14:55)
[2025-07-04] MEDS: ACETAMINOPHEN 325 MG TABLET PO PRN (16:02)
[2025-07-04] MEDS: POTASSIUM CL SA 10 MEQ TAB PO ONE (18:24)
[2025-07-05] MEDS: ALPRAZOLAM 1 MG TABLET PO PRN (00:26)
--- NOTE | 2025-07-05 04:01 | P.PN ---
Date of Service: 07/04/25 Subjective patient continues to improve. Patient's respiratory status is stable. Patient with multifocal pneumonia. Respiratory status is slightly worsened. Continue with antibiotic therapy and continue with IV steroids. Physical Examination - Vital Signs Reviewed - Physical Exam General: Alert, Oriented x3, Mild distress Respiratory: Normal air movement, Crackles/rales, Expiratory wheezes Cardiovascular: Regular rate/rhythm, Normal S1 S2 Gastrointestinal: Soft and benign, W/out hepatosplenomegaly Musculoskeletal: No clubbing Integumentary: No rashes Neurological: Other (Alert awake nonfocal) Assessment and Plan - Assessment /Plan Acute hypoxic respiratory failure Multifocal pneumonia Tachycardic CT findings noted was negative for PE consistent with multifocal pneumonia Started on IV antibiotic Bronchodilators Monitor closely in telemetry COPD exacerbation Monitor closely on telemetry Started on bronchodilators Oxygen supplementation ABG findings noted Chest x-ray findings noted Sigmoid colitis CT consistent with mild sigmoid colitis Will add on Flagyl Need outpatient follow-up with GI Chronic pain Monitor closely Continue home medications and titrate as needed History of anxiety disorder Chronic back pain Hypertension History of gastric ulcers GERD Continue home medication History of nicotine dependence nicotine patch offered Advised cessation DVT PPx Lovenox Full code Discharge Plan: Home Plan to discharge in: 48 Hours - Advance Directives Does patient have a Living Will: No Does patient have a Durable POA for Healthcare: Yes - Code Status/Comfort Care Code Status: Full Code Time Spent Managing Pts Care (In Minutes): 30
[2025-07-05] MEDS: METHYLPREDNISOLONE 40 MG INJ IV SCH (06:09)
[2025-07-05 06:28] LABS: Anion Gap 8.0 mEq/L (5.0-15.0); BUN Blood Urea Nitrogen 9.0 mg/dL (7-18); Glucose Level 155.0 mg/dL (74-106); Potassium 4.0 mEq/L (3.5-5.1)
--- NOTE | 2025-07-05 12:02 | P.PN ---
Date of Service: 07/05/25 Subjective: Resting comfortably in bed. Denies fevers and chills. Endorses shortness of breath. Denies chest pain Physical Examination - Vital Signs Reviewed - Physical Exam General: Alert, Oriented x3, Mild distress Respiratory: Normal air movement, Crackles/rales, Expiratory wheezes Cardiovascular: Regular rate/rhythm, Normal S1 S2 Gastrointestinal: Soft and benign, W/out hepatosplenomegaly Musculoskeletal: No clubbing Integumentary: No rashes Neurological: Other (Alert awake nonfocal) Assessment and Plan - Assessment /Plan 07/05 - Continue bronchodilators, steroids, antibiotics - Consult pulmonary - Leukocytosis likely reactive to steroid - Continue Flagyl for colitis - Continue Neurontin, oxycodone - Continue Xanax Acute hypoxic respiratory failure Multifocal pneumonia Tachycardic CT findings noted was negative for PE consistent with multifocal pneumonia Started on IV antibiotic Bronchodilators Monitor closely in telemetry COPD exacerbation Monitor closely on telemetry Started on bronchodilators Oxygen supplementation ABG findings noted Chest x-ray findings noted Sigmoid colitis CT consistent with mild sigmoid colitis Will add on Flagyl Need outpatient follow-up with GI Chronic pain Monitor closely Continue home medications and titrate as needed History of anxiety disorder Chronic back pain Hypertension History of gastric ulcers GERD Continue home medication History of nicotine dependence nicotine patch offered Advised cessation DVT PPx Lovenox Full code Discharge Plan: Home Plan to discharge in: 48 Hours - Advance Directives Does patient have a Living Will: No Does patient have a Durable POA for Healthcare: Yes - Code Status/Comfort Care Code Status: Full Code
--- NOTE | 2025-07-06 13:20 | P.PN ---
Date of Service: 07/06/25 Subjective: Sleeping on arrival. Awakens easily. No acute complaints today. Vital stable. she denies fevers and chills Physical Examination - Vital Signs Reviewed - Physical Exam General: Alert, Oriented x3, Mild distress Respiratory: Normal air movement, Crackles/rales, Expiratory wheezes Cardiovascular: Regular rate/rhythm, Normal S1 S2 Gastrointestinal: Soft and benign, W/out hepatosplenomegaly Musculoskeletal: No clubbing Integumentary: No rashes Neurological: Other (Alert awake nonfocal) Assessment and Plan - Assessment /Plan 07/06 - Continue steroids, bronchodilators, Rocephin, Zithromax, Flagyl - Obtain CBC and CMP in the a.m. - Blood cultures with no growth thus far - Pain control with Dilaudid and Animas 07/05 - Continue bronchodilators, steroids, antibiotics - Consult pulmonary - Leukocytosis likely reactive to steroid - Continue Flagyl for colitis - Continue Neurontin, oxycodone - Continue Xanax Acute hypoxic respiratory failure Multifocal pneumonia Tachycardic CT findings noted was negative for PE consistent with multifocal pneumonia Started on IV antibiotic Bronchodilators Monitor closely in telemetry COPD exacerbation Monitor closely on telemetry Started on bronchodilators Oxygen supplementation ABG findings noted Chest x-ray findings noted Sigmoid colitis CT consistent with mild sigmoid colitis Need outpatient follow-up with GI Chronic pain Monitor closely Continue home medications and titrate as needed History of anxiety disorder Chronic back pain Hypertension History of gastric ulcers GERD Continue home medication History of nicotine dependence nicotine patch offered Advised cessation DVT PPx Lovenox Full code Discharge Plan: Home Plan to discharge in: 48 Hours - Advance Directives Does patient have a Living Will: No Does patient have a Durable POA for Healthcare: Yes - Code Status/Comfort Care Code Status: Full Code
[2025-07-07 05:48] LABS: Absolute Lymphocytes (CBC) 0.5 K/uL (0.7-4.9); Hematocrit 30.4 % (36.0-45.0); Hemoglobin 9.2 g/dL (12.0-15.0); MCH 22.1 pg (27.0-35.0); MCHC 30.4 g/dL (32.0-36.0); MCV 72.6 fL (80-100); MPV 8.0 fL (7.6-11.3); Nucleated RBC Absolute Count 0.0 (0-0); Nucleated Red Blood Cells % 0.1 % (0-0); RBC Red Blood Cell Count 4.19 M/uL (3.86-4.86); White Blood Count 11.10 thou/uL (4.3-10.9)
[2025-07-07 06:05] LABS: Albumin 2.1 g/dL (3.4-5.0); Albumin/Globulin Ratio 0.6 (1.1-1.8); Alkaline Phosphatase 95 U/L (45-117); Anion Gap 3.9 mEq/L (5.0-15.0); BUN Blood Urea Nitrogen 13 mg/dL (7-18); Globulin 3.5 g/dL (2.3-3.5); Glucose Level 171 mg/dL (74-106); Potassium 3.9 mEq/L (3.5-5.1)
[2025-07-07 06:07] LABS: ALT/SGPT < 14 U/L (13-56); AST/SGOT < 10 U/L (15-37)
[2025-07-07] MEDS: POTASSIUM 25 MEQ EFFERV TAB PO ONE (08:03)
--- NOTE | 2025-07-07 10:33 | P.PN ---
Subjective Date of Service: 07/07/25 Chief Complaint: Pneumonia Subjective: No new changes (Patient is complaining of abdominal pain) Physical Examination - Vital Signs Temperature: 97.8 F Blood Pressure: 115/74 Pulse: 101 Respirations: 20 Pulse Ox (%): 99 - Physical Exam General: Cooperative, Cachectic, Acute distress HEENT: Atraumatic, Normocephalic Respiratory: Diminished, Crackles/rales Cardiovascular: No edema, Normal pulses, Regular rate/rhythm, Normal S1 S2 Neurological: Normal speech Assessment And Plan - Plan Assessment Patient is a 44-year-old female with past medical history of partial gastrectomy 9 months ago reportedly for gastric ulcer, small bowel resection, and possible COPD. She presented with shortness of breath and hypoxia. Patient is currently on 5 L via nasal cannula. Chest x-ray and CT chest concerning for multifocal pneumonia. Patient is slowly responding to antibiotic coverage. She continues to experience abdominal pain. Acute hypoxemic respiratory failure Multifocal pneumonia Sinus tachycardiaCT angio negative for PE COPD exacerbation Sigmoid colitis Chronic pain History of anxiety disorder Chronic back pain Hypertension History of gastric ulcer GERD Nicotine dependence Plan: Wean off supplemental oxygen as tolerated Continue empiric antibiotics, steroids, bronchodilators She may have to be discharged on supplemental home oxygen Pain control for abdominal pain DVT and GI prophylaxis
[2025-07-08 07:52] LABS: Absolute Lymphocytes (CBC) 0.6 K/uL (0.7-4.9); Hematocrit 29.2 % (36.0-45.0); Hemoglobin 8.9 g/dL (12.0-15.0); MCH 22.1 pg (27.0-35.0); MCHC 30.5 g/dL (32.0-36.0); MCV 72.5 fL (80-100); MPV 7.3 fL (7.6-11.3); Nucleated RBC Absolute Count 0.0 (0-0); Nucleated Red Blood Cells % 0.1 % (0-0); RBC Red Blood Cell Count 4.03 M/uL (3.86-4.86); White Blood Count 8.10 thou/uL (4.3-10.9)
[2025-07-08 08:07] LABS: Anion Gap 4.3 mEq/L (5.0-15.0); BUN Blood Urea Nitrogen 15.0 mg/dL (7-18); Glucose Level 171.0 mg/dL (74-106); Magnesium 2.3 mg/dL (1.6-2.4); Potassium 4.3 mEq/L (3.5-5.1)
[2025-07-08 08:43] LABS: Blood Morphology Comment NOT SEEN (NOT SEEN); White Blood Cell Scan OK (OK)
--- NOTE | 2025-07-08 15:49 | P.PN ---
Subjective Date of Service: 07/08/25 Chief Complaint: Pneumonia Subjective: Other (Patient continues to desat while on supplemental oxygen) Physical Examination - Vital Signs Temperature: 98.3 F Blood Pressure: 115/76 Pulse: 116 Respirations: 18 Pulse Ox (%): 96 - Physical Exam General: In no apparent distress, Cooperative, Other (Ill-appearing) HEENT: Atraumatic, Normocephalic Respiratory: Diminished, Crackles/rales Cardiovascular: No edema, Normal pulses, Regular rate/rhythm, Normal S1 S2 Neurological: Normal speech Assessment And Plan - Plan Assessment Patient is a 44-year-old female with past medical history of partial gastrectomy 9 months ago reportedly for gastric ulcer, small bowel resection, and possible COPD. She presented with shortness of breath and hypoxia. Patient is currently on 5 L via nasal cannula. Chest x-ray and CT chest concerning for multifocal pneumonia. Patient is slowly responding to antibiotic coverage. She continues to experience abdominal pain. Acute hypoxemic respiratory failure Multifocal pneumonia Sinus tachycardiaCT angio negative for PE COPD exacerbation Sigmoid colitis Chronic pain History of anxiety disorder Chronic back pain Hypertension History of gastric ulcer GERD Nicotine dependence Plan: Plan to wean down oxygen today was unsuccessful. Patient desatting in the mid 80s while on 3 L of oxygen Will go ahead and broaden her antibiotic from ceftriaxone to cefepime. She may require at least 2 more days of this regimen Case discussed with pulmonary medicine. Patient tend to respond better Solu- Medrol and antibiotics Continue nebulizers She will have to be discharged on supplemental oxygen and clinically stable and not desatting. Pain control for abdominal pain DVT and GI prophylaxis
[2025-07-08] MEDS: CEFEPIME 2 GM in NA CHLORIDE 0.9% 100 ML IV SCH (17:09)
[2025-07-09 05:20] VITALS: BMI 21.9
[2025-07-09] MEDS: HYDROMORPHONE HCL 0.5 MG/0.5 ML INJ IV PRN (08:23)
--- NOTE | 2025-07-09 09:59 | P.PN ---
Subjective Date of Service: 07/09/25 Chief Complaint: Pneumonia Subjective: Improving (Patient is doing better on cefepime.) Physical Examination - Vital Signs Temperature: 97.7 F Blood Pressure: 131/82 Pulse: 100 Respirations: 18 Pulse Ox (%): 97 - Physical Exam General: Alert, In no apparent distress, Cooperative, Cachectic HEENT: Atraumatic, Normocephalic Respiratory: Crackles/rales Cardiovascular: No edema, Normal pulses, Regular rate/rhythm, Normal S1 S2 Neurological: Normal speech Assessment And Plan - Plan Assessment Patient is a 44-year-old female with past medical history of partial gastrectomy 9 months ago reportedly for gastric ulcer, small bowel resection, and possible COPD. She presented with shortness of breath and hypoxia. Patient is currently on 5 L via nasal cannula. Chest x-ray and CT chest concerning for multifocal pneumonia. Patient is slowly responding to antibiotic coverage. She continues to experience abdominal pain. Acute hypoxemic respiratory failure Multifocal pneumonia Sinus tachycardiaCT angio negative for PE COPD exacerbation Sigmoid colitis Chronic pain History of anxiety disorder Chronic back pain Hypertension History of gastric ulcer GERD Nicotine dependence Plan: Day 2 of cefepime for pseudomonal coverage, and IV Solu-Medrol She is doing better on this regimen Continue weaning down oxygen as tolerated She will need 1 more day of cefepime Home health arrangement Case discussed with pulmonary medicine. Patient tend to respond better Solu- Medrol and antibiotics Continue nebulizers She will have to be discharged on supplemental oxygen and clinically stable and not desatting. Pain control for abdominal pain DVT and GI prophylaxis
--- NOTE | 2025-07-09 17:44 | P.CNS ---
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 has had repeated exacerbations last 1 was about 3 months ago he usually recovers with dose of antibiotics and steroids he has been admitted and is feeling better is now on is not coughing anything no fever chills Allergies codeine [From Tylenol-Codeine #3] Allergy (Verified 08/10/23 13:10) Rash propoxyphene napsylate [From Darvocet-N 100] Allergy (Verified 03/15/13 14:12) Itching/Hives/Rash tramadol Allergy (Verified 03/15/25 00:49) Hives/Rash Home Medications: Spironolactone [Aldactone*] 25 mg PO DAILY #30 tab 09/08/24 Pantoprazole Sodium [Protonix] 40 mg PO BID 10/14/24 Gabapentin 1 cap PO TID 30 Days #90 cap 10/16/24 Alprazolam [Xanax] 1 tab PO BEDTIME PRN #14 tab 03/26/25 Ipratropium Neb [Atrovent*] 0.5 mg NEB [id number] #60 amp 03/26/25 Levalbuterol [Xopenex*] 1.25 mg NEB Q8HP #90 vial 03/26/25 predniSONE [Deltasone*] 10 mg PO DAILY #70 tab 03/26/25 Oxycodone HCl 10 mg PO TID 07/03/25 - Past Medical/Surgical History Diabetic: No -: Anxiety disorder -: Nicotine dependence -: Hypertension -: GERD -: Chronic back pain -: Pneumonia -: MRSA in 2020 -: stomach ulcers -: Pulmonary fibrosis -: BTL -: Partial stomach removed -: Colon resection - Family History Father Medical History: Cancer Notes: pelvic cancer Mother Medical History: Cancer Notes: lung cancer, brain cancer Brother Notes: SIDS - Social History Smoking Status: Current every day smoker Alcohol use: No CD- Drugs: No Caffeine use: Yes Place of Residence: Home Review of Systems General: Weakness Respiratory: Shortness of Breath Physical Examination Temp Pulse Resp BP Pulse Ox 98.1 F 99 H 18 128/89 97 07/09/25 16:00 07/09/25 16:00 07/09/25 16:20 07/09/25 16:00 07/09/25 16:20 General: Alert Neck: Supple Respiratory: Clear to auscultation bilaterally Cardiovascular: No edema, Regular rate/rhythm, Normal S1 S2 - Problems (1) Acute exacerbation of idiopathic pulmonary fibrosis Current Visit: No Status: Acute Plan: Patient is 44 years of age has nonspecific interstitial pneumonitis she is also had a bronchoscopy done presented with an exacerbation treat with p.o. prednisone levofloxacin patient has oxygen at home vital signs stable titrate sat to 90% stable for discharge tomorrow continue with prednisone 20 twice a day for a week levofloxacin for for 5 days and follow-up with me next week
[2025-07-09] MEDS: predniSONE 20 MG TAB PO SCH (21:10)
[2025-07-10] MEDS: levoFLOXacin 250 MG TAB PO SCH (08:36)
[2025-07-10 09:45] VITALS: O2SAT 95
[2025-07-10 12:08] VITALS: BP 115/83; TEMP 97.6
--- NOTE | 2025-07-10 12:17 | P.DS ---
Admission Date: 07/03/25 Discharge Date: 07/10/25 Disposition: DC HOME/HOME HEALTH CARE Discharge Condition: GOOD Reason for Admission: Pneumonia Hospital Course: Patient is a 44-year-old female with past medical history of partial gastrectomy 9 months ago reportedly for gastric ulcer, small bowel resection, and possible COPD. She presented with shortness of breath and hypoxia. Chest x-ray and CT chest concerning for multifocal pneumonia. Patient was slowly responding to antibiotic coverage until her antibiotics were broadened to cefepime for pseudomonal coverage. She was kept on IV Solu-Medrol. She is well-known to pulmonary medicine. He seems to be their working regimen to speed up her recovery. She was requiring high amount of supplemental oxygen which has now been weaned down to 3 L. Home health arrangements were made. She will be discharged on home oxygen as well. She needs to follow-up with pulmonary medicine upon discharge. Vital Signs/Physical Exam: Temp Pulse Resp BP Pulse Ox 97.6 F 104 H 16 115/83 97 07/10/25 12:00 07/10/25 12:00 07/10/25 12:00 07/10/25 12:00 07/10/25 12:00 General: In no apparent distress, Cooperative HEENT: Atraumatic, Normocephalic Respiratory: Diminished, Crackles/rales Cardiovascular: No edema, Normal pulses, Regular rate/rhythm, Normal S1 S2 Neurological: Normal speech Laboratory Data at Discharge: WBC 8.10 thou/uL (4.3-10.9) 07/08/25 07:40 Hgb 8.9 g/dL (12.0-15.0) L 07/08/25 07:40 Hct 29.2 % (36.0-45.0) L 07/08/25 07:40 Plt Count 336 thou/uL (152-406) 07/08/25 07:40 PT 15.8 SECONDS (10-13.0) H 07/02/25 22:15 INR 1.41 07/02/25 22:15 APTT 31.6 SECONDS (27.2-37.4) 07/02/25 22:15 Sodium 140 mEq/L (136-145) 07/08/25 07:40 Potassium 4.3 mEq/L (3.5-5.1) 07/08/25 07:40 BUN 15 mg/dL (7-18) 07/08/25 07:40 Creatinine 0.34 mg/dL (0.55-1.02) L 07/08/25 07:40 Glucose 171 mg/dL (74-106) H 07/08/25 07:40 Phosphorus 2.9 mg/dL (2.5-4.9) 07/08/25 07:40 Magnesium 2.3 mg/dL (1.6-2.4) 07/08/25 07:40 Total Bilirubin < 0.2 mg/dL (0.2-1.0) L 07/07/25 04:47 AST < 10 U/L (15-37) L 07/07/25 04:47 ALT < 14 U/L (13-56) 07/07/25 04:47 Alkaline Phosphatase 95 U/L (45-117) 07/07/25 04:47 Home Medications: Spironolactone [Aldactone*] 25 mg PO DAILY #30 tab 09/08/24 Pantoprazole Sodium [Protonix] 40 mg PO BID 10/14/24 Gabapentin 1 cap PO TID 30 Days #90 cap 10/16/24 Alprazolam [Xanax] 1 tab PO BEDTIME PRN #14 tab 03/26/25 Ipratropium Neb [Atrovent*] 0.5 mg NEB [id number] #60 amp 03/26/25 Levalbuterol [Xopenex*] 1.25 mg NEB Q8HP #90 vial 03/26/25 Oxycodone HCl 10 mg PO TID 07/03/25 levoFLOXacin [Levaquin*] 750 mg PO DAILY #5 tab 07/10/25 predniSONE [Prednisone*] 20 mg PO BID #14 tab 07/10/25 New Medications: levoFLOXacin [Levaquin*] 750 mg PO DAILY #5 tab predniSONE [Prednisone*] 20 mg PO BID #14 tab Followup: Edu nAaya DO, DO [Primary Care Provider] -
== END 2025-07-10 14:59 | disposition home health service (06) | DRG 871 ==
LOC: ER 21:39 → ERHOLD 07-03 05:17 → 4TH 07-03 06:20
PROVIDERS: ADMIT Family Medicine; ATTEND Internal Medicine
PROC: 4A033R1 Measurement of Arterial Saturation, Peripheral, Percutaneous Approach (ICD-10-PCS; principal; 2025-07-02)
DX: A41.9 Sepsis, unspecified organism (principal); J18.9 Pneumonia, unspecified organism; J96.01 Acute respiratory failure with hypoxia; J44.1 Chronic obstructive pulmonary disease with (acute) exacerbation; J44.0 Chronic obstructive pulmonary disease with (acute) lower respiratory infection; R64 Cachexia; I10 Essential (primary) hypertension; J84.112 Idiopathic pulmonary fibrosis; K21.9 Gastro-esophageal reflux disease without esophagitis; K52.9 Noninfective gastroenteritis and colitis, unspecified; F17.210 Nicotine dependence, cigarettes, uncomplicated; Z88.5 Allergy status to narcotic agent; Z88.8 Allergy status to other drugs, medicaments and biological substances; Z68.21 Body mass index [BMI] 21.0-21.9, adult; Z99.81 Dependence on supplemental oxygen; Z79.52 Long term (current) use of systemic steroids; Z90.49 Acquired absence of other specified parts of digestive tract; Z86.14 Personal history of Methicillin resistant Staphylococcus aureus infection; Z79.899 Other long term (current) drug therapy; Z11.52 Encounter for screening for COVID-19
CPT/HCPCS: 36415; 36600; 71045; 71275; 74177; 80048; 80053; 81001; 82805; 83605; 83735; 83880; 84100; 84484; 85025; 85610; 85730; 87040; 87428; 93005; 94010; 94640; 94668; 94760; 99285; G0238; J0456; J0692; J0696; J1171; J1650; J2919; J3010; J7030; J7050; J7512; J7613; J7614; J7644; Q9967